=== PATIENT | female | born 1950 | race Caucasian/White ===

== ENCOUNTER → 2017-09-15 | Outpatient (CLI) | payer BC ==
[~2017-09-15] MED LIST: LSN25 PO; METO50TA17 PO; POTA8CAP6 PO
--- NOTE | 2017-09-15 19:12 | DIAGNOSTIC IMAGING REPORT ---
ULTRASOUND VENOUS DOPPLER LWR EXT BILA CLINICAL HISTORY: BILATERAL LEG SWELLING COMPARISON STUDY: No previous studies for comparison. FINDINGS: The examination was limited from a technical standpoint. The patient is paraplegic and was scanned in a wheelchair. The popliteal veins were nonvisualized due to the patient's positioning. The calf veins were difficult to visualize. No thrombus was visualized within either common femoral or superficial femoral vein. IMPRESSION: Significantly limited study from a technical standpoint. No evidence of lower extremity DVT. Electronically signed by: Michael Taylor M.D. 09/15/2017 7:10 PM Dictated Date/Time: 09/15/2017 7:09 PM
--- NOTE | 2017-09-15 19:25 | DIAGNOSTIC IMAGING REPORT ---
CHEST 2 VIEWS ROUTINE CLINICAL HISTORY: COUGH COMPARISON STUDY: 09/15/2016 FINDINGS: The study was obtained in apical lordotic fashion. The heart is normal in size. There is no failure. There is no focal pulmonary consolidation. There is increased soft tissue in the right paratracheal/azygous region, unchanged from the preceding study. This is not felt to be of clinical significance as no mass was identified in this area on a CT scan performed 09/21/2016[ . No pleural effusions are visualized. There is elevation/eventration left hemidiaphragm. IMPRESSION: No active disease in the chest. Electronically signed by: Michael Taylor M.D. 09/15/2017 7:23 PM Dictated Date/Time: 09/15/2017 7:21 PM
--- NOTE | 2017-09-19 13:24 | CODING QUERY MEDICAL NECESSITY ---
SUPPORTING DIAGNOSIS NEEDED A supporting diagnosis is required for the test/procedure performed on this patient in order for us to be reimbursed by the patient's insurance. Please provide a supporting diagnosis for the following test/procedure listed below next to the test name along with your signature. *If there is no additional diagnosis for this patient that would support the following test/procedure please document that below next to the test/procedure. Test(s)/Procedure(s) that require a supporting diagnosis: * US VENOUD DOPPLER LWR EXT BILA DIAGNOSIS: Provider Signature: Date: Thank you [facility] [place] [facility] Once completed, please kindly fax back to [phone] For questions please call [phone]
== END | disposition home or self-care (01) ==
LOC: C.ULTR 17:50
PROVIDERS: ATTEND Nurse Practitioner Family
DX: R50.9 Fever, unspecified (principal); R05 Cough

== ENCOUNTER 2021-05-15 10:35 | Inpatient (IN) ==
[2021-05-15] MEDS ORDERED: PIPERACILLIN/TAZOBACTAM 4.5 GM/120 ML BAG IV ONE (11:31)
[2021-05-15] MEDS ORDERED: PIPERACILL/TAZOBAC CONSULT ACTIVE PRN (11:31)
--- NOTE | 2021-05-15 11:54 | XRay Report ---
XR chest 1V portable HISTORY: 70 years-old Female Stroke Like Symptoms acute strokelike symptoms COMPARISON: Chest radiographs 04/13/2019 TECHNIQUE: Portable AP view of the chest FINDINGS: Cardiomediastinal and hilar silhouettes are within normal limits. Mild left hemidiaphragmatic elevati on has improved from comparison. No pneumothorax, pleural effusion, airspace consolidation or overt p ulmonary edema. Degenerative changes of the shoulders and spine. IMPRESSION: No acute process. ACT 112: Negative or not required by law. The above report was generated using voice recognition software. It may contain grammatical, syntax o r spelling errors. Electronically signed by: Saeid Chong M.D. 05/15/2021 11:52 AM
[2021-05-15 12:11] LABS: Hematocrit (blood only) 38.5 % (37-47); Hemoglobin 12.4 g/dL (12.0-16.0); Immature Granulocytes # (auto) 0.02 K/uL (0.00-0.02); Immature Granulocytes % (auto) 0.2 %; Lymphocytes # (auto) 0.66 K/uL (1.2-3.4); Lymphocytes % (auto) 6.4 %; Mean Corpuscular Hemoglobin 30.3 pg (25-34); Mean Corpuscular Hgb Conc 32.2 g/dL (32-36); Mean Corpuscular Volume 94.1 fL (80-100); Mean Platelet Volume 10.7 fL (7.4-10.4); Monocytes # (auto) 0.22 K/uL (0.11-0.59); Monocytes % (auto) 2.1 %; Neutrophils # (auto) 9.37 K/uL (1.4-6.5); Neutrophils % (auto) 91.3 %; Platelet Count 237 K/uL (130-400); RDW Coefficient of Variation 14.6 % (11.5-14.5); RDW Standard Deviation 50.1 fL (36.4-46.3); Red Blood Count 4.09 M/uL (4.2-5.4); White Blood Count 10.27 K/uL (4.8-10.8)
[2021-05-15 12:25] LABS: INR 1.2 (0.9-1.1); Partial Thromboplastin Ratio 1.1; Partial Thromboplastin Time 27.8 Seconds (21.0-31.0)
[2021-05-15 12:33] LABS: Alanine Aminotransferase 21 U/L (12-78); Albumin Level 3.3 gm/dl (3.4-5.0); Aspartate Aminotransferase 17 U/L (15-37); BUN Creatinine Ratio 37.6 (10-20); Blood Urea Nitrogen 23 mg/dl (7-18); Calcium 9.5 mg/dl (8.5-10.1); Carbon Dioxide 26 mmol/L (21-32); Chloride 108 mmol/L (98-107); Creatinine Clr Calc Pharmacy 87.5 ml/min; Est GFR (African American) 106.6 ml/min; Glucose 92 mg/dl (70-99); Magnesium 2.1 mg/dl (1.8-2.4); Potassium 3.6 mmol/L (3.5-5.1); Sodium 141 mmol/L (136-145)
[2021-05-15 12:38] LABS: Albumin Globulin Ratio 0.8 (0.9-2); Alkaline Phosphatase 90 U/L (45-117); Bilirubin,Total 1.3 mg/dl (0.2-1); Creatine Kinase MB 1.1 ng/ml (0.5-3.6); Globulin 4.3 gm/dl (2.5-4.0); Total Protein 7.6 gm/dl (6.4-8.2); Troponin I < 0.015 ng/ml (0-0.045)
[2021-05-15] MEDS ORDERED: OPTIRAY 320 125ml IV ONE (14:16)
--- NOTE | 2021-05-15 14:29 | CT Scan Report ---
CT angio head w con CLINICAL HISTORY: Stroke Like Symptoms TECHNIQUE: CT angiography of the head was performed in a dynamic helical fashion during intravenous a dministration of 120 cc of Optiray. MIP imaging was performed. A dose lowering technique was utilized adhering to the principles of ALARA. CT DOSE: 2044.78 mGy.cm COMPARISON STUDY: No previous studies for comparison. FINDINGS: There are no lesion suspicious for aneurysm. There are no major intracranial branch occlusi ons. The dural venous sinuses appear patent. Atheromatous changes are present within the cavernous ca rotids without evidence of hemodynamically significant stenosis. There is moderate hydrocephalus IMPRESSION: 1. Moderate hydrocephalus 2. No evidence of aneurysm 3. No evidence of major intracranial stenosis or major intracranial branch occlusion ACT 112: Negative or not required by law. Electronically signed by: Michael Taylor M.D. 05/15/2021 2:27 PM
--- NOTE | 2021-05-15 14:32 | CT Scan Report ---
CT angio neck with con CLINICAL HISTORY: Stroke Like Symptoms COMPARISON STUDY: No previous studies for comparison. TECHNIQUE: CT angiography was performed from the aortic arch to the skull base. MIP imaging was perfo rmed. The patient was scanned in a dynamic helical fashion during intravenous administration of 120 c c of Optiray. A dose lowering technique was utilized adhering to the principles of ALARA. CT DOSE: Technique: CT angiogram of the carotid and vertebral arteries was obtained using intravenous contrast and 3-D reconstruction. NASCET criteria was utilized. Findings: The right carotid revealed no evidence of aneurysm and no evidence of dissection. There is no evidenc e of hemodynamic significant stenosis. The left carotid revealed no evidence of hemodynamic significant stenosis. There is no evidence of an eurysm. There is no evidence of dissection. Atheromatous calcifications are present the level of both carotid bulbs as well as within the caverno us carotids without evidence of hemodynamically significant stenosis There is no evidence of hemodynamically significant vertebral stenosis. There is no evidence of verte bral dissection. IMPRESSION: No evidence of hemodynamically significant carotid or vertebral artery stenosis. No evidence of disse ction. ACT 112: Negative or not required by law. Electronically signed by: Michael Taylor M.D. 05/15/2021 2:31 PM
--- NOTE | 2021-05-15 14:33 | CT Scan Report ---
CT SCAN OF THE BRAIN WITHOUT IV CONTRAST CLINICAL HISTORY: Strokelike symptoms. COMPARISON STUDY: No priors. TECHNIQUE: Unenhanced axial CT scan of the brain is performed from the vertex to the skull base. A do se lowering technique was utilized adhering to the principles of ALARA. The examination is compromise d by motion artifact. FINDINGS: Brain parenchyma: There is loss of bay-white differentiation in the high left parietal lobe at the v ertex, best seen on axial image #26. There are age-related involutional changes noting moderate subc ortical and periventricular microangiopathic change. There is no hemorrhage or mass effect. No extra- axial fluid collection is seen. Ventricles, sulci, cisterns: There is hydrocephalus, with marked dilatation of the lateral and third ventricles. Biventricular diameter measures up to 8 cm. There is a mild prominence of the cortical quigley lci and cisterns. Intracranial vasculature: There is atherosclerotic calcification of the cavernous carotid and vertebr al arteries. Calvarium: Unremarkable. Sinuses and mastoids: The visualized paranasal sinuses are clear. The mastoid air cells are well pneu matized. Orbits: The bony orbits are grossly intact. IMPRESSION: 1. There is loss of bay-white matter differentiation identified in the high left parietal lobe at th e vertex. This could represent subacute versus chronic ischemic change. Correlate with any prior outs jayjay imaging studies to assess for chronicity. This could be further assessed with MRI if clinically w arranted. 2. There is no hemorrhage or mass effect. 3. Hydrocephalus. ACT 112: Negative or not required by law. Electronically signed by: Aaron Pandey M.D. 05/15/2021 2:32 PM
--- NOTE | 2021-05-15 14:46 | Electrocardiogram Report ---
Test Reason : Blood Pressure : / mmHG Vent. Rate : 105 BPM Atrial Rate : 105 BPM P-R Int : 126 ms QRS Dur : 082 ms QT Int : 370 ms P-R-T Axes : 058 044 072 degrees QTc Int : 489 ms Poor data quality, interpretation may be adversely affected Sinus tachycardia Otherwise normal ECG When compared with ECG of 21-SEP-2018 20:33, No significant change was found Confirmed by Theo Roberts ([id number]) on 05/15/2021 2:45:39 PM Referred By: REFERRED SELF Confirmed By:Theo Roberts
[2021-05-15] MEDS ORDERED: SODIUM CHLORIDE 0.9% 500 ML IV ONE (15:31)
[2021-05-15] MEDS ORDERED: ASPIRIN CHEW 324 MG PO STA (17:51)
--- NOTE | 2021-05-15 17:51 | History & Physical Report ---
Date of Service May 15, 2021 Assessment & Plan (1) Stroke-like symptoms: Presented with 1 week of right upper extremity weakness and some very subtle slurred speech CT noncontrast of the head with left parietal possible subacute CVA Risk factors for stroke include hypertension which is currently untreated, but lipid panel and hemoglobin A1c unknown at this time. She is not a smoker and has no known history of atrial fibrillation or flutter. CTA head neck without large vessel occlusion or stenosis -Admit to telemetry and monitor for tachyarrhythmia -Check echocardiogram with bubble study -Check MRI of the brain with and without contrast-she does have a history of craniotomy when she had meningitis 30+ years ago, plus a history of hydrocephalus and spina bifida -Neurology consultation requested -Start aspirin 81 mg once daily -Start atorvastatin 40 mg once daily and check lipid panel in the morning -Check hemoglobin A1c, TSH in the morning -Neurochecks, NIH scale daily -PT/OT/speech therapy consultations requested -She may need rehab as she is unable to currently do her transfers to wheelchair like she normally does (2) HTN (hypertension): Blood pressures are elevated here and she is not on medication for this at home Continue to follow but would likely start antihypertensive this admission if blood pressures remain persistently elevated -Consider diuretic versus lisinopril (3) Neurogenic bladder: With urinary incontinence Does not require self-catheterization Bladder scan as needed (4) Paraplegia: Chronic, secondary to spina bifida Frequent position changes, supportive care Offload pressure to prevent wounds (5) Spina bifida: Noted (6) Cellulitis: With left lower extremity erythema and open wound on the back of left calf does not think erythema is worse than usual and this may be secondary to her lymphedema, however given the open wound, will treat empirically with antibiotics Was given IV Zosyn in the ER We will continue IV ceftriaxone here Monitor blood cultures-drawn in the ER She remains afebrile and has no leukocytosis here (7) Lymphedema of both lower extremities: Chronic (8) DVT prophylaxis: Lovenox Disposition-admit to telemetry, may end up needing rehab stay Full code History of Present Illness Chief Complaint: Slurred speech, left-sided weakness Primary Care Provider: CHARANJIT Jimenez This patient is a 70-year-old female with a history of spina bifida with paraplegia, HTN, osteomyelitis of the right hip, Takotsubo cardiomyopathy, neurogenic bladder, lymphedema of the leg and C. difficile colitis, who presents to the ER with 1 week of slurred speech and right upper extremity weakness. She first noticed some numbness in the right forearm last week and then since then has not been able to do her transfers as well to her wheelchair due to weakness in the arm. She is able to raise the arm up but just feels its not quite as strong as it usually is. Her then started to notice slurred speech more so today than previously. In the ER, A CT of the head noncontrast showed loss of bay-white matter differentiation in the high left parietal lobe at the vertex that could represent subacute versus chronic ischemic change. She was also noted to have hydrocephalus but the patient reports this is chronic. CT angiogram of the head showed no evidence of major intracranial stenosis or major intracranial branch occlusion, but did again show moderate hydrocephalus. There are no previous studies for comparison. In addition to this, the patient also noted that she has an open wound to the back of the left calf that is more recent but she has not been covering it up. Her leg does appear erythematous, however her does not think it looks much worse than usual given her severe lymphedema in that leg. She has not had any fevers or chills, no alteration in mental status. She has no pain because she does not have sensation in the legs. She was given a dose of IV Zosyn in the ER for this. She will be admitted for stroke work-up and for treatment for possible left lower extremity cellulitis and wound. Allergies Allergy/AdvReac Type Severity Reaction Status Date / Time nalidixic acid Allergy Unknown Unknown Verified 05/15/21 15:46 Home Medications Medication Instructions Recorded Confirmed Type albuterol sulfate 2 puff INHALATION DIRECTED PRN 09/21/18 05/15/21 History Past Med/Surg History Medical History (Updated 05/15/21 @ 22:26 by Susi Card MD) Acute CHF (congestive heart failure) Acute [id number] myocardial infarction Hiatal hernia Hypertension Lymphedema of both lower extremities Meningitis spinal Neurogenic bladder (06/21/13) Paraplegia (06/21/13) Spina bifida (06/21/13) Takotsubo cardiomyopathy Surgical History H/O section Hx of cholecystectomy Family History Other Family history non-contributory Social History Smoking Status: Never smoker Hx Alcohol Use: No Hx Substance Use: No Preferred Language: Gabonese Communication Ability: Effective Visual Impairment: No Limitations Hearing Ability: Normal 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 No changes in bowels Physical Exam Constitutional: WD/WN, vitals as above + obese Eyes: PERRL, conjunctivae normal, anicteric sclerae EOM intact bilaterally; no anisocoria and no nystagmus ENMT: external ear and nose normal, oropharynx normal Neck: trachea midline, no thyromegaly Respiratory: normal respiratory effort, lungs clear to auscultation Cardiovascular: Rate/Rhythm: regular rate and regular rhythm Heart Sounds: no murmur Chest (Breasts): Chest: normal inspection of chest Gastrointestinal (Abdomen): normal bowel sounds, soft, nontender, no hepatosplenomegaly Musculoskeletal: Extremities: no cyanosis and no clubbing Massive lymphedema of the lower extremities left greater than right, does have toes but no discernible shape to the feet Skin: Positive erythema of left leg up to the mid thigh Open wound 3 x 2 cm in the posterior left calf without drainage Neurologic: CN's II-XI intact bilaterally (Except very slight droop to right corner of mouth), + focal motor deficit (Lower extremities flaccid,RUE w/ 4/5 strength in deltoid,otherwise 5/5 UEs) and awake; not confused Speech / Cognition: no expressive aphasia Motor/Sensory: + pronator drift (Right upper extremity); no sensory deficit (Sensation intact to light touch throughout upper extremities bilaterally) Psychiatric: A+Ox3, euthymic affect Lymphatic: + lymphedema (Severe, in lower extremities bilateral) Results & Data Results & Data ([facility]) Vital Signs (Past 12 Hours) Vital Signs Temp Pulse Resp BP Pulse Ox 05/15/21 17:30 100 H 23 141/108 H 99 05/15/21 17:00 92 H 20 136/69 97 05/15/21 16:30 93 H 20 128/79 96 05/15/21 15:30 94 H 18 150/77 H 97 05/15/21 15:00 93 H 19 145/89 H 95 05/15/21 14:30 105 H 20 123/105 H 05/15/21 13:30 93 H 21 109/65 95 05/15/21 13:00 98 H 21 115/76 96 05/15/21 12:31 98 H 18 115/67 05/15/21 12:07 108 H 18 118/76 93 05/15/21 12:00 101 H 18 05/15/21 11:30 106 H 18 97 05/15/21 11:25 109 H 20 96 05/15/21 10:41 36.8 C 119 H 18 162/79 H 94 05/15/21 10:36 96 Laboratory Results 05/15/21 05/15/21 05/15/21 Range/Units 12:26 12:25 12:25 WBC (4.8-10.8) K/uL RBC (4.2-5.4) M/uL Hgb (12.0-16.0) g/dL Hct (37-47) % MCV (80-100) fL MCH (25-34) pg MCHC (32-36) g/dL RDW Std Deviation (36.4-46.3) fL RDW Coeff of Deanna (11.5-14.5) % Plt Count (130-400) K/uL MPV (7.4-10.4) fL Immature Gran % (Auto) % Neut % (Auto) % Lymph % (Auto) % Woods % (Auto) % Eos % (Auto) % Baso % (Auto) % Neut # (Auto) (1.4-6.5) K/uL Lymph # (Auto) (1.2-3.4) K/uL Woods # (Auto) (0.11-0.59) K/uL Eos # (Auto) (0-0.5) K/uL Baso # (Auto) (0-0.2) K/uL Immature Gran # (Auto) (0.00-0.02) K/uL PT (9.0-12.0) Seconds INR (0.9-1.1) APTT (21.0-31.0) Seconds PTT Ratio Sodium (136-145) mmol/L Potassium (3.5-5.1) mmol/L Chloride (98-107) mmol/L Carbon Dioxide (21-32) mmol/L Anion Gap (3-11) BUN (7-18) mg/dl Creatinine (0.6-1.2) mg/dl Est Cr Clr Drug Dosing ml/min Est GFR ( Amer) ml/min Est GFR (Non-Af Amer) ml/min BUN/Creatinine Ratio (10-20) Glucose (70-99) mg/dl POC Glucose 92 (70-99) mg/dl Lactate (0.4-2.0) mmol/L Calcium (8.5-10.1) mg/dl Magnesium (1.8-2.4) mg/dl Total Bilirubin (0.2-1) mg/dl AST (15-37) U/L ALT (12-78) U/L Alkaline Phosphatase (45-117) U/L CK-MB (CK-2) (0.5-3.6) ng/ml Troponin I (0-0.045) ng/ml Total Protein (6.4-8.2) gm/dl Albumin (3.4-5.0) gm/dl Globulin (2.5-4.0) gm/dl Albumin/Globulin Ratio (0.9-2) COVID-19 Eval Order Covid19 at [facility] SARS-CoV-2 (PCR) NEGATIVE (Negative) 05/15/21 05/15/21 05/15/21 Range/Units 11:50 11:50 11:50 WBC (4.8-10.8) K/uL RBC (4.2-5.4) M/uL Hgb (12.0-16.0) g/dL Hct (37-47) % MCV (80-100) fL MCH (25-34) pg MCHC (32-36) g/dL RDW Std Deviation (36.4-46.3) fL RDW Coeff of Deanna (11.5-14.5) % Plt Count (130-400) K/uL MPV (7.4-10.4) fL Immature Gran % (Auto) % Neut % (Auto) % Lymph % (Auto) % Woods % (Auto) % Eos % (Auto) % Baso % (Auto) % Neut # (Auto) (1.4-6.5) K/uL Lymph # (Auto) (1.2-3.4) K/uL Woods # (Auto) (0.11-0.59) K/uL Eos # (Auto) (0-0.5) K/uL Baso # (Auto) (0-0.2) K/uL Immature Gran # (Auto) (0.00-0.02) K/uL PT 12.0 (9.0-12.0) Seconds INR 1.2 H (0.9-1.1) APTT 27.8 (21.0-31.0) Seconds PTT Ratio 1.1 Sodium 141 (136-145) mmol/L Potassium 3.6 (3.5-5.1) mmol/L Chloride 108 H (98-107) mmol/L Carbon Dioxide 26 (21-32) mmol/L Anion Gap 7.0 (3-11) BUN 23 H (7-18) mg/dl Creatinine 0.62 (0.6-1.2) mg/dl Est Cr Clr Drug Dosing 87.5 ml/min Est GFR ( Amer) 106.6 ml/min Est GFR (Non-Af Amer) 92.0 ml/min BUN/Creatinine Ratio 37.6 H (10-20) Glucose 92 (70-99) mg/dl POC Glucose (70-99) mg/dl Lactate 1.5 (0.4-2.0) mmol/L Calcium 9.5 (8.5-10.1) mg/dl Magnesium 2.1 (1.8-2.4) mg/dl Total Bilirubin 1.3 H (0.2-1) mg/dl AST 17 (15-37) U/L ALT 21 (12-78) U/L Alkaline Phosphatase 90 (45-117) U/L CK-MB (CK-2) 1.1 (0.5-3.6) ng/ml Troponin I < 0.015 (0-0.045) ng/ml Total Protein 7.6 (6.4-8.2) gm/dl Albumin 3.3 L (3.4-5.0) gm/dl Globulin 4.3 H (2.5-4.0) gm/dl Albumin/Globulin Ratio 0.8 L (0.9-2) COVID-19 Eval Order SARS-CoV-2 (PCR) (Negative) 05/15/21 Range/Units 11:50 WBC 10.27 (4.8-10.8) K/uL RBC 4.09 L (4.2-5.4) M/uL Hgb 12.4 (12.0-16.0) g/dL Hct 38.5 (37-47) % MCV 94.1 (80-100) fL MCH 30.3 (25-34) pg MCHC 32.2 (32-36) g/dL RDW Std Deviation 50.1 H (36.4-46.3) fL RDW Coeff of Deanna 14.6 H (11.5-14.5) % Plt Count 237 (130-400) K/uL MPV 10.7 H (7.4-10.4) fL Immature Gran % (Auto) 0.2 % Neut % (Auto) 91.3 % Lymph % (Auto) 6.4 % Woods % (Auto) 2.1 % Eos % (Auto) 0.0 % Baso % (Auto) 0.0 % Neut # (Auto) 9.37 H (1.4-6.5) K/uL Lymph # (Auto) 0.66 L (1.2-3.4) K/uL Woods # (Auto) 0.22 (0.11-0.59) K/uL Eos # (Auto) 0.00 (0-0.5) K/uL Baso # (Auto) 0.00 (0-0.2) K/uL Immature Gran # (Auto) 0.02 (0.00-0.02) K/uL PT (9.0-12.0) Seconds INR (0.9-1.1) APTT (21.0-31.0) Seconds PTT Ratio Sodium (136-145) mmol/L Potassium (3.5-5.1) mmol/L Chloride (98-107) mmol/L Carbon Dioxide (21-32) mmol/L Anion Gap (3-11) BUN (7-18) mg/dl Creatinine (0.6-1.2) mg/dl Est Cr Clr Drug Dosing ml/min Est GFR ( Amer) ml/min Est GFR (Non-Af Amer) ml/min BUN/Creatinine Ratio (10-20) Glucose (70-99) mg/dl POC Glucose (70-99) mg/dl Lactate (0.4-2.0) mmol/L Calcium (8.5-10.1) mg/dl Magnesium (1.8-2.4) mg/dl Total Bilirubin (0.2-1) mg/dl AST (15-37) U/L ALT (12-78) U/L Alkaline Phosphatase (45-117) U/L CK-MB (CK-2) (0.5-3.6) ng/ml Troponin I (0-0.045) ng/ml Total Protein (6.4-8.2) gm/dl Albumin (3.4-5.0) gm/dl Globulin (2.5-4.0) gm/dl Albumin/Globulin Ratio (0.9-2) COVID-19 Eval Order SARS-CoV-2 (PCR) (Negative) Diagnostic Findings Chest X-Ray 05/15/21 11:22 XR chest 1V portable HISTORY: 70 years-old Female Stroke Like Symptoms acute strokelike symptoms COMPARISON: Chest radiographs 04/13/2019 TECHNIQUE: Portable AP view of the chest FINDINGS: Cardiomediastinal and hilar silhouettes are within normal limits. Mild left hemidiaphragmatic elevation has improved from comparison. No pneumothorax, pleural effusion, airspace consolidation or overt pulmonary edema. Degenerative changes of the shoulders and spine. IMPRESSION: No acute process. ACT 112: Negative or not required by law. The above report was generated using voice recognition software. It may contain grammatical, syntax or spelling errors. Electronically signed by: Saeid Chong M.D. 05/15/2021 11:[address] 05/15/21 11:22 CT SCAN OF THE BRAIN WITHOUT IV CONTRAST CLINICAL HISTORY: Strokelike symptoms. COMPARISON STUDY: No priors. TECHNIQUE: Unenhanced axial CT scan of the brain is performed from the vertex to the skull base. A dose lowering technique was utilized adhering to the principles of ALARA. The examination is compromised by motion artifact. FINDINGS: Brain parenchyma: There is loss of bay-white differentiation in the high left parietal lobe at the vertex, best seen on axial image #26. There are age-related involutional changes noting moderate subcortical and periventricular microangiopathic change. There is no hemorrhage or mass effect. No extra-axial fluid collection is seen. Ventricles, sulci, cisterns: There is hydrocephalus, with marked dilatation of the lateral and third ventricles. Biventricular diameter measures up to 8 cm. There is a mild prominence of the cortical sulci and cisterns. Intracranial vasculature: There is atherosclerotic calcification of the cavernous carotid and vertebral arteries. Calvarium: Unremarkable. Sinuses and mastoids: The visualized paranasal sinuses are clear. The mastoid air cells are well pneumatized. Orbits: The bony orbits are grossly intact. IMPRESSION: 1. There is loss of bay-white matter differentiation identified in the high left parietal lobe at the vertex. This could represent subacute versus chronic ischemic change. Correlate with any prior outside imaging studies to assess for chronicity. This could be further assessed with MRI if clinically warranted. 2. There is no hemorrhage or mass effect. 3. Hydrocephalus. ACT 112: Negative or not required by law. Electronically signed by: Aaron Pandey M.D. 05/15/2021 2:32 PM Head CTA 05/15/21 11:22 CT angio head w con CLINICAL HISTORY: Stroke Like Symptoms TECHNIQUE: CT angiography of the head was performed in a dynamic helical fashion during intravenous administration of 120 cc of Optiray. MIP imaging was perfor med. A dose lowering technique was utilized adhering to the principles of ALARA. CT DOSE: 2044.78 mGy.cm COMPARISON STUDY: No previous studies for comparison. FINDINGS: There are no lesion suspicious for aneurysm. There are no major intracranial branch occlusions. The dural venous sinuses appear patent. Atheromatous changes are present within the cavernous carotids without evidence of hemodynamically significant stenosis. There is moderate hydrocephalus IMPRESSION: 1. Moderate hydrocephalus 2. No evidence of aneurysm 3. No evidence of major intracranial stenosis or major intracranial branch occlusion ACT 112: Negative or not required by law. Electronically signed by: Michael Taylor M.D. 05/15/2021 2:27 PM Neck CTA 05/15/21 11:22 CT angio neck with con CLINICAL HISTORY: Stroke Like Symptoms COMPARISON STUDY: No previous studies for comparison. TECHNIQUE: CT angiography was performed from the aortic arch to the skull base. MIP imaging was performed. The patient was scanned in a dynamic helical fashion during intravenous administration of 120 cc of Optiray. A dose lowering technique was utilized adhering to the principles of ALARA. CT DOSE: Technique: CT angiogram of the carotid and vertebral arteries was obtained using intravenous contrast and 3-D reconstruction. NASCET criteria was utilized. Findings: The right carotid revealed no evidence of aneurysm and no evidence of dissection. There is no evidence of hemodynamic significant stenosis. The left carotid revealed no evidence of hemodynamic significant stenosis. There is no evidence of aneurysm. There is no evidence of dissection. Atheromatous calcifications are present the level of both carotid bulbs as well as within the cavernous carotids without evidence of hemodynamically significant stenosis There is no evidence of hemodynamically significant vertebral stenosis. There is no evidence of vertebral dissection. IMPRESSION: No evidence of hemodynamically significant carotid or vertebral artery stenosis. No evidence of dissection. ACT 112: Negative or not required by law. Electronically signed by: Michael Taylor M.D. 05/15/2021 2:31 PM ECG Additional Comments: EKG on 05/15/2021 at 1202 with sinus tachycardia, rate 105, otherwise normal ECG Code Status & VTE Plan Code Status Full code VTE Prophylaxis Plan VTE Prophylaxis will be ordered: Yes PG Care Time/CCT Total # of Minutes Spent Total Time Spent with Patient: Total time spent is greater than 50% in coordination of care (as documented) at patient's floor/unit and/or counseling patient: Coding Level of Care Code 64387 Initial Inpt Care Lvl 3 Diagnoses Stroke-like symptoms R29.90 HTN (hypertension) I10 Neurogenic bladder N31.9 Paraplegia G82.20 Spina bifida Q05.9 Presence of hydrocephalus: unspecified hydrocephalus presence Spinal region: unspecified Cellulitis L03.90 Lymphedema of both lower extremities I89.0 DVT prophylaxis Z29.9 (1) Spina bifida Presence of hydrocephalus: unspecified hydrocephalus presence Spinal region: unspecified Qualified Code(s): Q05.9 - Spina bifida, unspecified
[2021-05-15] MEDS ORDERED: ALBUTEROL HFA 8 GM INHALER INH PRN (20:58)
[2021-05-15] MEDS ORDERED: cefTRIAXone SODIUM 2,000 MG in DEXTROSE 5% 50 ML IV SCH (20:58)
[2021-05-15] MEDS ORDERED: ACETAMINOPHEN 325 MG TAB PO PRN (20:58)
[2021-05-15] MEDS ORDERED: POLYETHYLENE (MIRALAX) 17 GM PACK PO PRN (20:58)
[2021-05-15] MEDS ORDERED: PHARMACIST DISCHARGE MED REC CONSULT PRN (20:58)
[2021-05-15] MEDS ORDERED: GADOBUTROL 65ML VIAL IV ONE (22:42)
--- NOTE | 2021-05-15 22:59 | Magnetic Resonance Report ---
MRI OF THE BRAIN COMBO CLINICAL HISTORY: Slurred speech. Right-sided weakness. COMPARISON STUDY: CT of the brain dated 05/15/2021. TECHNIQUE: MRI of the brain was performed utilizing various T1 and T2-weighted sequences in the axial , sagittal, and coronal planes. Contrast-enhanced sequences were acquired following the administratio n of 9.5 cc of Gadavist. The examination is degraded by motion artifact. FINDINGS: Brain parenchyma: There is an approximately 2.5 cm focus of restricted diffusion identified in the hi gh left parietal lobe consistent with an acute to subacute infarct. Gyriform enhancement is noted wit hin the infarcted parenchyma. No additional foci of restricted diffusion are identified. There is no hemorrhage or mass effect. There is mild to moderate microangiopathic change. No enhancing mass lesio n is identified on the postcontrast images. Tiny chronic lacunar infarcts are noted in the right cere bellar hemisphere. There is cerebellar tonsillar ectopia. Ventricles, sulci, and cisterns: There is moderate hydrocephalus comment with significant dilatation of the lateral and third ventricles. There is only mild prominence of the cortical sulci and cisterns .. Pituitary and sella: Unremarkable. Intracranial vasculature: Normal flow voids are maintained at the skull base. Orbits: The bony orbits are grossly intact. Orbital contents are normal in appearance. Sinuses and mastoids: Clear. Calvarium: Unremarkable. Cervical cord: Partially visualized cervical spinal cord is normal in morphology and signal intensity . IMPRESSION: 1. There is an acute to subacute infarct in the high left parietal cortex. 2. No additional foci of acute ischemia are identified. 3. There is no hemorrhage or mass effect. 4. Hydrocephalus. ACT 112: Negative or not required by law. Electronically signed by: Aaron Pandey M.D. 05/15/2021 10:58 PM
[2021-05-15] MEDS: cefTRIAXone SODIUM 2,000 MG in DEXTROSE 5% 50 ML IV SCH (23:14)
[2021-05-16 07:18] LABS: Eosinophils # (auto) 0.03 K/uL (0-0.5); Eosinophils % (auto) 0.4 %; Hematocrit (blood only) 39.9 % (37-47); Hemoglobin 13.3 g/dL (12.0-16.0); Immature Granulocytes # (auto) 0.04 K/uL (0.00-0.02); Immature Granulocytes % (auto) 0.5 %; Lymphocytes # (auto) 0.14 K/uL (1.2-3.4); Lymphocytes % (auto) 1.8 %; Mean Corpuscular Hemoglobin 30.6 pg (25-34); Mean Corpuscular Hgb Conc 33.3 g/dL (32-36); Mean Corpuscular Volume 91.9 fL (80-100); Mean Platelet Volume 10.3 fL (7.4-10.4); Monocytes # (auto) 0.12 K/uL (0.11-0.59); Monocytes % (auto) 1.5 %; Neutrophils # (auto) 7.58 K/uL (1.4-6.5); Neutrophils % (auto) 95.8 %; Platelet Count 156 K/uL (130-400); RDW Coefficient of Variation 14.6 % (11.5-14.5); RDW Standard Deviation 49.4 fL (36.4-46.3); Red Blood Count 4.34 M/uL (4.2-5.4); White Blood Count 7.91 K/uL (4.8-10.8)
[2021-05-16 07:38] LABS: BUN Creatinine Ratio 41.6 (10-20); Calcium 9.2 mg/dl (8.5-10.1); Creatinine Clr Calc Pharmacy 89.4 ml/min; Est GFR (African American) 108.4 ml/min; Est GFR (Non-African American) 93.5 ml/min; Potassium 3.7 mmol/L (3.5-5.1)
[2021-05-16 07:47] LABS: Thyroid Stimulating Hormone 2.46 uIu/ml (0.300-4.500)
[2021-05-16] MEDS: ENOXAPARIN INJ 40 MG/0.4 ML SYR SQ SCH (08:23)
[2021-05-16] MEDS: ATORVASTATIN 40 MG TAB PO SCH (08:23)
[2021-05-16] MEDS: ASPIRIN 81 MG ECTAB PO SCH (08:23)
[2021-05-16] MEDS ORDERED: NSS + 20MEQ KCL 20 MEQ/1,000 ML BAG IV SCH (08:30)
[2021-05-16 08:41] LABS: Estimated Average Glucose 108 mg/dl; Hemoglobin A1C 5.4 % (4.5-5.6)
[2021-05-16] MEDS: ADVANCED PROBIOTIC 1250 MG CAPSULE PO SCH (08:43)
[2021-05-16] MEDS: ONDANSETRON INJ 2 MG/ML 2 ML VIAL IV PRN ×3 (10:25→23:39)
--- NOTE | 2021-05-16 11:29 | Neurology Consultation ---
Date of Consultation May 16, 2021 Assessment & Plan (1) Stroke: Acute to subacute ischemic stroke within the high left parietal cortex resulting in a mild to moderate right hemiparesis/motor apraxia and mild dysarthria. Does not have a significant aphasia. Chronic hydrocephalus, spina bifida with paraplegia neurogenic bladder noted. No evidence of significant vascular lesion on CT angiography of the head and neck. Cardioembolism in consideration. Follow-up with results of echocardiogram. Treatment for cellulitis noted. Agree with aspirin 81 mg/day and atorvastatin 40 mg/day as ordered. Consider obtaining 30-day mobile cardiac outpatient telemetry monitoring to exclude atrial fibrillation. Continue management of blood pressure, appears appropriate. Orders for PT/OT/speech therapy noted. Patient and her spouse informed me that they were planning on taking an [id number] bus trip in about 2 weeks. However, given her recent stroke they would like to cancel this trip which I think is reasonable. They do have travel insurance but may require some type of documentation pertaining to her recent diagnosis of stroke and probably a letter from one of her physicians. I can see her for a follow-up appointment in neurology clinic in 3 to 4 weeks. History of Present Illness Reason for Consultation: Right-sided weakness, stroke Requesting Physician: Susi Card MD Attending Physician: Umesh Levy History of Present Illness The patient is a 70-year-old female with a history of spina bifida complicated by paraplegia, lower extremity deformity, neurogenic bladder who presented to the hospital yesterday for further evaluation and management of strokelike symptoms. She complains of slurred speech and right upper extremity weakness which has been present for about the past week. The symptoms have been fairly persistent. Has also had some associated numbness of the right arm. Patient is right-handed. She is able to still utilize the right arm but has greater difficulty controlling her movements. Difficulty grasping, raising the arm, and making transfers in her wheelchair noted over the past week. Past medical history is also notable for Takotsubo cardiomyopathy, chronic lymphedema and suspected left lower extremity cellulitis. Patient has undergone extensive imaging including CT of the head, CT angiography of the head and neck, and brain MRI. The CT of the head reveals a probable subacute infarct in the high left parietal cortex and hydrocephalus which is chronic, biventricular diameter up to [address] angiography of the head and neck are unremarkable. Brain MRI reveals an acute to subacute infarct in the high left parietal cortex. No hemorrhage. There is hydrocephalus again noted. No other obvious cerebral malformations. Cerebellum and brainstem structures appear normal. The corpus callosum is thinned in the context of hydrocephalus. I reviewed the images as well as the radiologist's interpretation of these tests and agree. It looks like patient's only outpatient medication was an albuterol inhaler. She is now receiving ceftriaxone for suspected infection, atorvastatin, and daily low-dose aspirin. Allergies Allergy/AdvReac Type Severity Reaction Status Date / Time nalidixic acid Allergy Unknown Unknown Verified 05/15/21 15:46 Home Medications Medication Instructions Recorded Confirmed Type albuterol sulfate 2 puff INHALATION DIRECTED PRN 09/21/18 05/15/21 History Patient History Medical History Acute CHF (congestive heart failure) Acute [id number] myocardial infarction Hiatal hernia Hypertension Lymphedema of both lower extremities Meningitis spinal Neurogenic bladder (06/21/13) Paraplegia (06/21/13) Spina bifida (06/21/13) Takotsubo cardiomyopathy Surgical History H/O section Hx of cholecystectomy Family History Other Family history non-contributory Social History Smoking Status: Never smoker Hx Alcohol Use: No Hx Substance Use: No Preferred Language: Mexican Communication Ability: Effective Visual Impairment: No Limitations Hearing Ability: Normal Pumper Hand Required: No Beliefs That Will Affect Care: None marital status: Current Living Situation: Spouse current occupational status: retired Other Information That Helps Us Care for You: No Feels Safe at Home: Yes Safety Concerns: Feels Safe At This Time during the past year weight has: remained stable Assistive Devices: Oxygen - Continuous Review of Systems Constitutional: no fever and no chills Eyes: no blind spots and no diplopia Ear, Nose, Mouth, Throat: no hearing loss Respiratory: no cough and no dyspnea Cardiovascular: no chest pain and no palpitations Gastrointestinal: + nausea and + vomiting Genitourinary: + urinary frequency and + urinary urgency Musculoskeletal: no myalgia Integumentary: + skin ulcer and + erythema Neurologic: as per Subjective / HPI, + localized weakness and + loss of sensation; no headache(s) and no memory loss Psychiatric: no depression and no anxiety Hematologic / Lymphatic: no easy bleeding and no easy bruising Exam (Neuro) Constitutional: well developed and well nourished; no acute distress Eyes: normal visual neri by confrontation, PERRL, normal accommodation and EOM intact bilaterally; no fundoscopic abnormality, no nystagmus and no papilledema Cardiovascular: Vessels: normal carotid upstroke; no carotid bruit Neurologic: Oriented to:: Person, Place and Time Memory: Short Term Intact and Remote Intact Attention: Span Intact and Concentration Intact Language: Naming Objects and Repeating Phrases Speech Fluency: negative Dysarthria Speech Aphasia: negative Aphasia Fund of Knowledge: Current Events, Past History and Vocabulary Cranial Nerves: Normal II (Visual neri full to confrontation, visual acuity normal), III, IV, (Pupils equal round reactive to light and accommodation, eye movements normal), V (Facial sensation intact), VII (There is no facial droop or weakness), VIII (Hearing intact), IX, X (Palate elevates to midline), XI (Shoulder shrug intact) and XII (Tongue protrudes to midline) Motor Strength: Pronator Drift Laterality: Right; negative Normal Lower Extremities (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 She is unable to move either lower limb.) and Normal Upper Extremities (Mild to moderate weakness noted for the right upper extremity with limited grasp and difficulty with motor control.) Motor Tone: Normal Lower Extremities and Normal Upper Extremities Muscle Bulk/Involuntary Movements: No Involuntary Movements Sensation: Light Touch Intact, Pain/Temperature Intact, Vibration Intact and Proprioception Intact Coordination: Finger-Nose Abnormal Laterality: Right and Heel-Rodríguez Abnormal (Unable to test [id number], unable to move either lower limb, chronic.); negative Dysdiadochokinesia Deep Tendon Reflexes: Rt Triceps: 3+, Lt Triceps: 2+, Rt Biceps: 3+, Lt Biceps: 2+, Rt Brachioradialis: 3+ and Lt Brachioradialis: 2+ Special Tests: negative Babinski Present Details: Unable to assess lower extremity reflexes due to congenital deformity. Patient is nonambulatory at baseline. Gait cannot be tested. Results & Data ([facility]) Vital Signs (Past 12 Hours) Vital Signs Temp Pulse Pulse Resp BP Pulse Ox 05/16/21 09:00 116 H 05/16/21 07:17 37.0 C 127 H 22 101/73 98 05/16/21 03:43 37.2 C 111 H 22 106/73 95 05/15/21 23:06 37.1 C 99 H 20 109/70 96 Laboratory Results WBC 7.91, hemoglobin 13.3, hematocrit 39.9, platelet count 156, sodium 141, potassium 3.7, BUN 25, creatinine 0.59, glucose 106, hemoglobin A1c 5.4, calcium 9.2, troponin less than 0.015, triglycerides 69, cholesterol 165, LDL 97, VLDL 14, HDL 54, TSH 2.[address] of the head, CT angiography of the head and neck, and brain MRI are as described in the history of present illness. I reviewed the images as well as the radiologist's interpretation of these tests. Electrocardiogram reveals sinus tachycardia, 105 bpm. An echocardiogram was reportedly completed this morning, results pending. (An echocardiogram completed in March 2019 revealed normal left ventricular systolic function, grade 1 diastolic dysfunction, mild sclerosis of the aortic valve, without stenosis, mild aortic regurgitation, and mild mitral annular calcification. Normal left and right atrial sizes noted.) Coding Level of Care Code 94721 Initial Inpt Care Lvl 3 Diagnoses Stroke I63.9
--- NOTE | 2021-05-16 13:00 | Ultrasound Report ---
US venous doppler LE BI CLINICAL HISTORY: severe lymphedema, recent CVA; r/o DVT COMPARISON STUDY: 09/15/2017 FINDINGS: Real-time and color flow Doppler imaging were performed. Flow was seen within the femoral, popliteal and calf veins with no intraluminal thrombus demonstrated. The saphenous vein is patent. Co mmon femoral waveforms demonstrate prominent pulsatility. This may indicate elevated right heart pres sures. IMPRESSION: No evidence of lower extremity DVT. ACT 112: Negative or not required by law. Electronically signed by: Michael Taylor M.D. 05/16/2021 12:59 PM
[2021-05-16] MEDS ORDERED: VANCOMYCIN CONSULT ACTIVE PRN (15:01)
--- NOTE | 2021-05-16 15:02 | Hospitalist Progress Note ---
Date of Service May 16, 2021 Assessment & Plan (1) Stroke: Left parietal lobe stroke. Cause of RUE weakness. Etiology ? cardioembolic suspected. thus far no source of embolus, however (no a.fib on tele, normal echo). normal dopplers of b/l LEs. CTA head/neck negative. Seen by neurology, Dr Davila. Appreciate his consult. asa 81mg daily recommended for secondary stroke preventoin. continue lipitor 40mg daily (LDL 97). if no other cause of stroke is found would STRONGLY recommend 30-day event monitor or even loop recorder. DVT proph- lovenox. PT, OT, speech evals requested. (2) Cellulitis: LLE. extensive. source - left calf ulcers. worsening on monotherapy with rocephin. thus, add vanco IV. demarkation lines placed. re-eval in am. cellulitis is the likely cause of her anorexia, nausea, etc today. (3) Pressure ulcer of left calf: wound care consult requested. in meantime - aquacell aq, cover with optifoams. (4) Lymphedema of both lower extremities: severe, chronic, 2nd to paraplegia status. no DVT on dopplers today. (5) HTN (hypertension): with some exceptions most BPs have been high since presentation. continue to allow permissiveness in BPs today, then start meds tomorrow if needed. (6) Neurogenic bladder: lopez (7) Paraplegia: 2nd spina bifida wheel-chair / power-chart dependent (8) Spina bifida: longstanding diagnosis as above (9) Dehydration: patient appears volume contracted 2nd to poor oral intake, LLE cellulitis, etc. start isotonic fluids. repeat BMP am. (10) DVT prophylaxis: lovenox 40mg daily records suggest past h/o DVT but I cannot find any imaging report or document substantiating this left message for pt's this evening Admission and Anticipated Discharge Date Admission Date: May 15, 2021 Subjective patient lying in bed during the visit. she had an emesis basin near her - states she has had nausea much of the day. had emesis x 1. staff report 1 stool since admission - hard as a rock. no appetite. denies fevers/chills. RUE weakness mildly improved relative to admission. at baseline has no movement or sensation of b/l LEs. tele overnight - wnl, NSR. Review of Systems Constitutional: + fatigue, + weakness and + anorexia Ear, Nose, Mouth, Throat: no dysphagia Respiratory: no cough and no dyspnea Cardiovascular: no chest pain Gastrointestinal: + nausea, + vomiting and + constipation; no abdominal pain Integumentary: + skin ulcer (left calf ) Physical Exam Constitutional: + ill appearing; no acute distress and no altered mental status ENMT: Mouth: + dry oral mucous membranes Respiratory: normal respiratory effort, lungs clear to auscultation Cardiovascular: Rate/Rhythm: regular rhythm and + tachycardic Heart Sounds: normal S1 and normal S2; no murmur Vessels: posterior tibial pulses present and dorsalis pedis pulses present; no JVD Extremities: + edema (chronic lymphedema b/l legs ) Gastrointestinal (Abdomen): Inspection/Auscultation: + abdomen distended and + hypoactive bowel sounds Percussion/Palpation: abdomen nontender, no guarding and no hepatosplenomegaly Musculoskeletal: b/l BKAs Skin: severe stasis changes b/l legs; dry skin both legs. ulceration x 2 on posterior LLE over calf; serous drainage noted. erythema encircling the calf region. erythema then tracks up the anterior and lateral left thigh to the level of the inguinal crease. Neurologic: paraplegia of legs; 4/5 strength RUE; 5/5 strength LUE. Psychiatric: Orientation: alert and oriented x 3 Results & Data Results & Data ([facility]) Vital Signs (Past 12 Hours) Vital Signs Temp Pulse Pulse Resp BP Pulse Ox 05/16/21 14:39 37.5 C 90 18 165/93 H 98 05/16/21 11:07 34.7 C L 105 H 18 161/81 H 95 05/16/21 09:00 116 H 05/16/21 07:17 37.0 C 127 H 22 101/73 98 05/16/21 03:43 37.2 C 111 H 22 106/73 95 Laboratory Results Laboratory Results - last 24 hr 05/16/21 05/16/21 05/16/21 07:02 07:02 07:02 WBC 7.91 RBC 4.34 Hgb 13.3 Hct 39.9 MCV 91.9 MCH 30.6 MCHC 33.3 RDW Std Deviation 49.4 H RDW Coeff of Deanna 14.6 H Plt Count 156 MPV 10.3 Immature Gran % (Auto) 0.5 Neut % (Auto) 95.8 Lymph % (Auto) 1.8 [place] % (Auto) 1.5 Eos % (Auto) 0.4 Baso % (Auto) 0.0 Neut # (Auto) 7.58 H Lymph # (Auto) 0.14 L [place] # (Auto) 0.12 Eos # (Auto) 0.03 Baso # (Auto) 0.00 Immature Gran # (Auto) 0.04 H Sodium 141 Potassium 3.7 Chloride 109 H Carbon Dioxide 25 Anion Gap 6.0 BUN 25 H Creatinine 0.59 L Est Cr Clr Drug Dosing 89.4 Est GFR ( Amer) 108.4 Est GFR (Non-Af Amer) 93.5 BUN/Creatinine Ratio 41.6 H Glucose 106 H Estimat Average Glucose 108 Hemoglobin A1c 5.4 Calcium 9.2 Triglycerides 69 Cholesterol 165 LDL Cholesterol, Calc 97 VLDL Cholesterol, Calc 14 HDL Cholesterol 54 Cholesterol/HDL Ratio 3 TSH 2.460 Specimen Hemolysis Hepatitis C Ab Screen 05/16/21 07:02 WBC RBC Hgb Hct MCV MCH MCHC RDW Std Deviation RDW Coeff of Deanna Plt Count MPV Immature Gran % (Auto) Neut % (Auto) Lymph % (Auto) [place] % (Auto) Eos % (Auto) Baso % (Auto) Neut # (Auto) Lymph # (Auto) [place] # (Auto) Eos # (Auto) Baso # (Auto) Immature Gran # (Auto) Sodium Potassium Chloride Carbon Dioxide Anion Gap BUN Creatinine Est Cr Clr Drug Dosing Est GFR ( Amer) Est GFR (Non-Af Amer) BUN/Creatinine Ratio Glucose Estimat Average Glucose Hemoglobin A1c Calcium Triglycerides Cholesterol LDL Cholesterol, Calc VLDL Cholesterol, Calc HDL Cholesterol Cholesterol/HDL Ratio TSH Specimen Hemolysis Hepatitis C Ab Screen Pending Diagnostic Findings Venous Doppler Study 05/16/21 11:08 US venous doppler LE BI CLINICAL HISTORY: severe lymphedema, recent CVA; r/o DVT COMPARISON STUDY: 09/15/2017 FINDINGS: Real-time and color flow Doppler imaging were performed. Flow was seen within the femoral, popliteal and calf veins with no intraluminal thrombus demonstrated. The saphenous vein is patent. Common femoral waveforms demonstrate prominent pulsatility. This may indicate elevated right heart pressures. IMPRESSION: No evidence of lower extremity DVT. ACT 112: Negative or not required by law. Electronically signed by: Michael Taylor M.D. 05/16/2021 12:59 PM KUB X-Ray 05/16/21 15:01 XR KUB/Abdomen 1 view CLINICAL HISTORY: nausea/emesis COMPARISON STUDY: 09/17/2016 FINDINGS: The bones are osteopenic. The pelvis appears somewhat dysmorphic. There are surgical clips within the right upper quadrant consistent with a prior cholecystectomy. There is a severe thoracolumbar scoliosis. There is mild gaseous prominence of large and small bowel loops. There are no transition zones indicate bowel obstruction. There is scattered colonic stool. There is increased density of the bladder likely secondary to contrast excretion. IMPRESSION: 1. Nonobstructive bowel gas pattern. ACT 112: Negative or not required by law. Electronically signed by: Michael Taylor M.D. 05/16/2021 4:00 PM PG Care Time/CCT Total # of Minutes Spent Total Time Spent with Patient: Total time spent is greater than 50% in coordination of care (as documented) at patient's floor/unit and/or counseling patient: Coding Level of Care Code 85237 Subseq Hosp Care Lvl 3 Diagnoses Stroke I63.9 Cellulitis L03.90 Site of cellulitis: unspecified site Pressure ulcer of left calf L89.899 Lymphedema of both lower extremities I89.0 HTN (hypertension) I10 Neurogenic bladder N31.9 Paraplegia G82.20 Spina bifida Q05.9 Spinal region: unspecified Presence of hydrocephalus: unspecified hydrocephalus presence Dehydration E86.0 DVT prophylaxis Z29.9 (1) Cellulitis Site of cellulitis: unspecified site Qualified Code(s): L03.90 - Cellulitis, unspecified (2) Spina bifida Spinal region: unspecified Presence of hydrocephalus: unspecified hydrocephalus presence Qualified Code(s): Q05.9 - Spina bifida, unspecified
[2021-05-16] MEDS ORDERED: VANCOMYCIN HCL 2,000 MG in SODIUM CHLORIDE 0.9% 500 ML IV STA (15:13)
--- NOTE | 2021-05-16 15:29 | XCELERA ---
[id number]
--- NOTE | 2021-05-16 16:02 | XRay Report ---
XR KUB/Abdomen 1 view CLINICAL HISTORY: nausea/emesis COMPARISON STUDY: 09/17/2016 FINDINGS: The bones are osteopenic. The pelvis appears somewhat dysmorphic. There are surgical clips within the right upper quadrant consistent with a prior cholecystectomy. There is a severe thoracolum bar scoliosis. There is mild gaseous prominence of large and small bowel loops. There are no transiti on zones indicate bowel obstruction. There is scattered colonic stool. There is increased density of the bladder likely secondary to contrast excretion. IMPRESSION: 1. Nonobstructive bowel gas pattern. ACT 112: Negative or not required by law. Electronically signed by: Michael Taylor M.D. 05/16/2021 4:00 PM
--- NOTE | 2021-05-16 16:22 | Pharmacy Report ---
Pharmacy Abx Initial Consult - Date of Service May 16, 2021 - Pharmacy Dosing Scope Date of Consult: 05/16/21 Consultation requested by: Dr. Levy Pharmacy is consulted to initiate vancomycin IV dosing therapy, order appropriate labs and adjust drug dose/frequency. - Subjective The patient is a 70 year old F admitted on 05/15/21 18:29. - Objective Height: 5 ft Weight: 89.1 kg Vital Signs (Past 12hrs): Vital Signs Temp Pulse Pulse Resp BP Pulse Ox 05/16/21 16:00 83 05/16/21 14:39 37.5 C 90 18 165/93 H 98 05/16/21 11:07 34.7 C L 105 H 18 161/81 H 95 05/16/21 09:00 116 H 05/16/21 07:17 37.0 C 127 H 22 101/73 98 Lab Results (24hrs): Laboratory Tests (24 Hours) 05/16/21 05/16/21 07:02 07:02 WBC 7.91 Neut # (Auto) 7.58 H Creatinine 0.59 L Est Cr Clr Drug Dosing 89.4 - Assessment & Plan Assessment 70 year old F with a history of spina bifida complicated by paraplegia presented yesterday for concerns of stroke. Initiated on IV ceftriaxone yesterday and vancomycin added today for LLE cellulitis and open wound. Blood cultures NGTD. Renal function at baseline, however SCr not likely an accurate estimate of renal function in this patient. Plan Vancomycin IV * Loading dose: 2000 mg (22 mg/kg) * Maintenance dose: 1250mg IV (14mg/kg) every 12 hours * Goal trough level for cellulitis: 10-15mcg/mL * Will order a trough at steady state or sooner if renal function declines. Pharmacy will continue to follow and will adjust dose/frequency as necessary. Thank you.
--- NOTE | 2021-05-16 16:57 | Emergency Department Note ---
Impression & Plan Cellulitis, Stroke-like symptoms ED Provider Note NAME: JR DIAZ AGE: 70 SEX: F : 1950 ARRIVES VIA: Walk-In INFORMANT: Patient, ED PROVIDER(S): Juan Summers MD CHIEF COMPLAINT: Rt arm numbness HPI: This 70-year-old female who has a history of spina bifida who presents to the emergency department with her . Per the patient's the patient has had slurred speech for at least a week. The patient reports that she has had on and off symptoms of numbness to the right upper extremity. She reports nothing makes this better or worse. She denies taking anything for this. In addition the patient also has a wound to the left lower extremity. ROS: See above HPI for pertinent positives & negatives. A total of 10 systems reviewed and were otherwise negative. PAST MEDICAL HISTORY: See Below PAST SURGICAL HISTORY: See Below FAMILY HISTORY: See Below SOCIAL HISTORY: See Below HOME MEDICATIONS: See Below ALLERGIES: See Below VITALS: See Below PHYSICAL EXAMINATION: VITAL SIGNS - Vital signs and nursing notes were reviewed. GENERAL - 70-year-old female appearing stated age who is in no acute distress. Communicates well with provider and answers questions appropriately. SKIN - cellulitis present LLE HEAD - NC/AT. EYES - PERRL with EOMI bilaterally. Sclera anicteric. Palpebral conjunctiva pink and moist with no injection noted. EARS - No deformities of external structures noted on gross examination bilaterally. NOSE - Midline and without cyanosis. No epistaxis or purulent drainage noted. Septum midline without deviation or septal hematoma noted. MOUTH/OROPHARYNX - Without perioral cyanosis. Buccal mucosa pink and moist and without leukoplakia. Tongue midline with equal elevation of palate bilaterally. No tonsillar hypertrophy, erythema, or exudates noted. dentition noted. NECK - Neck with FROM. Supple to palpation. lymphadenopathy noted. No nuchal rigidity. LUNGS - Chest wall symmetric without accessory muscle use, intercostals retractions, or central cyanosis. Normal vesicular breath sounds CTA B/L. No wheezes, rales, or rhonchi appreciated. CARDIAC - RRR with S1/S2. No murmur, rubs, or gallops appreciated. ABDOMEN - Abdominal contour without pulsations or visible masses. BS normoactive all four quadrants. No tenderness, palpable masses, hepatosplenomegaly, or ascites noted. EXTREMITIES - No clubbing or peripheral cyanosis. No pretibial edema present. +3/5 radial, posterior tibial, and dorsalis pedis pulses palpated throughout. Pt unable to move lower extremities, LLE 2"x4" wound with cellulitis extending from wound NEUROLOGIC - Cranial nerves II through XII grossly intact. Sensory intact to light touch throughout. Patellar reflexes +2/4. PSYCH - A&Ox3 and cooperates fully with examiner. Pt is very pleasant and interacts well with examiner. MEDICAL DECISION MAKING: Patient was seen and evaluated as above in room B9. Review was performed of nursing notes and vital signs. I did review pertinent previous visits and patient history. After obtaining a thorough history and physical examination the above work up was performed. This 70-year-old female who presents emergency department complaining of wound to the left lower extremity as well as slurred speech and numbness and tingling to the right side of her body. Patient's CAT scan of the head is concerning for CVA. Based on these findings I did discuss the case with the hospitalist service who did agree to admit the patient. The patient was started on broad- spectrum antibiotics including Zosyn. She does not have an elevation in her white blood cell count. She was given a normal saline bolus here in the emergency department. An order was placed for continuous cardiac monitoring. The monitor shows a rate of 83 with Normal Sinus rhythm. The patient was evaluated during a period of high volume and high acuity during the global COVID-19 pandemic, and that diagnosis was suspected/considered upon their initial presentation. Their evaluation, treatment and testing was consistent with current guidelines for patients who present with complaints or symptoms that may be related to COVID-19. Patient was seen while provider was wearing PPE. Triage Nursing notes reviewed. Prior medical records reviewed Vital Signs: reviewed and remarkable for no significant abnormalities Differential diagnosis: Infection, dehydration, metabolic abnormality, hypo/hyperglycemia, electrolyte disturbance, anemia, hypoxia, cardiac sources, intracerebral event, toxicologic, neurologic, as well as other pathologies. ER treatment provided: See below Diagnostics interpreted by me: ECG: Sinus tachycardia no ST elevation or depression QTC is 49 ventricular rate is 105 EKG is compared to 09/21/2018 no significant changes found Laboratory studies: As stated above and show below. Imaging studies: See below Consultation(s): Internal Medicine Past Med/Surg History Medical History Acute CHF (congestive heart failure) Acute [id number] myocardial infarction Hiatal hernia Hypertension Lymphedema of both lower extremities Meningitis spinal Neurogenic bladder (06/21/13) Paraplegia (06/21/13) Spina bifida (06/21/13) Takotsubo cardiomyopathy Surgical History H/O section Hx of cholecystectomy Family History Other Family history non-contributory Social History Smoking Status: Never smoker Hx Alcohol Use: No Hx Substance Use: No Preferred Language: Ch[place] Communication Ability: Effective Visual Impairment: No Limitations Hearing Ability: Normal Research Anthropologist Required: No Beliefs That Will Affect Care: None marital status: Current Living Situation: Spouse current occupational status: retired Other Information That Helps Us Care for You: No Feels Safe at Home: Yes Safety Concerns: Feels Safe At This Time during the past year weight has: remained stable Assistive Devices: Oxygen - Continuous Allergies Allergies Allergy/AdvReac Type Severity Reaction Status Date / Time nalidixic acid Allergy Unknown Unknown Verified 05/15/21 15:46 Home Meds Home Medications Medication Instructions Recorded Confirmed albuterol sulfate 2 puff INHALATION DIRECTED PRN 09/21/18 05/15/21 Results & Data (ED) Vital Signs Vital Signs - 24 hr 05/15/21 17:00 05/15/21 17:30 05/15/21 18:01 Pulse Rate 92 H 100 H 97 H Pulse Rate from SpO2 Sensor 93 H 100 H 98 H Respiratory Rate 20 23 20 Blood Pressure 136/69 141/108 H 157/67 H Blood Pressure Mean 91 119 97 Pulse Oximetry 97 99 96 Oxygen Delivery Method Room Air Laboratory Data Result diagrams: 05/16/21 07:02 05/16/21 07:02 Lab Results 05/15/21 05/15/21 05/15/21 Range/Units 11:50 11:50 11:50 WBC 10.27 (4.8-10.8) K/uL RBC 4.09 L (4.2-5.4) M/uL Hgb 12.4 (12.0-16.0) g/dL Hct 38.5 (37-47) % MCV 94.1 (80-100) fL MCH 30.3 (25-34) pg MCHC 32.2 (32-36) g/dL RDW Std Deviation 50.1 H (36.4-46.3) fL RDW Coeff of Deanna 14.6 H (11.5-14.5) % Plt Count 237 (130-400) K/uL MPV 10.7 H (7.4-10.4) fL Immature Gran % (Auto) 0.2 % Neut % (Auto) 91.3 % Lymph % (Auto) 6.4 % [place] % (Auto) 2.1 % Eos % (Auto) 0.0 % Baso % (Auto) 0.0 % Neut # (Auto) 9.37 H (1.4-6.5) K/uL Lymph # (Auto) 0.66 L (1.2-3.4) K/uL [place] # (Auto) 0.22 (0.11-0.59) K/uL Eos # (Auto) 0.00 (0-0.5) K/uL Baso # (Auto) 0.00 (0-0.2) K/uL Immature Gran # (Auto) 0.02 (0.00-0.02) K/uL PT 12.0 (9.0-12.0) Seconds INR 1.2 H (0.9-1.1) APTT 27.8 (21.0-31.0) Seconds PTT Ratio 1.1 Sodium 141 (136-145) mmol/L Potassium 3.6 (3.5-5.1) mmol/L Chloride 108 H (98-107) mmol/L Carbon Dioxide 26 (21-32) mmol/L Anion Gap 7.0 (3-11) BUN 23 H (7-18) mg/dl Creatinine 0.62 (0.6-1.2) mg/dl Est Cr Clr Drug Dosing 87.5 ml/min Est GFR ( Amer) 106.6 ml/min Est GFR (Non-Af Amer) 92.0 ml/min BUN/Creatinine Ratio 37.6 H (10-20) Glucose 92 (70-99) mg/dl POC Glucose (70-99) mg/dl Lactate (0.4-2.0) mmol/L Calcium 9.5 (8.5-10.1) mg/dl Magnesium 2.1 (1.8-2.4) mg/dl Total Bilirubin 1.3 H (0.2-1) mg/dl AST 17 (15-37) U/L ALT 21 (12-78) U/L Alkaline Phosphatase 90 (45-117) U/L CK-MB (CK-2) 1.1 (0.5-3.6) ng/ml Troponin I < 0.015 (0-0.045) ng/ml Total Protein 7.6 (6.4-8.2) gm/dl Albumin 3.3 L (3.4-5.0) gm/dl Globulin 4.3 H (2.5-4.0) gm/dl Albumin/Globulin Ratio 0.8 L (0.9-2) COVID-19 Eval Order SARS-CoV-2 (PCR) (Negative) 05/15/21 05/15/21 05/15/21 Range/Units 11:50 12:25 12:25 WBC (4.8-10.8) K/uL RBC (4.2-5.4) M/uL Hgb (12.0-16.0) g/dL Hct (37-47) % MCV (80-100) fL MCH (25-34) pg MCHC (32-36) g/dL RDW Std Deviation (36.4-46.3) fL RDW Coeff of Deanna (11.5-14.5) % Plt Count (130-400) K/uL MPV (7.4-10.4) fL Immature Gran % (Auto) % Neut % (Auto) % Lymph % (Auto) % [place] % (Auto) % Eos % (Auto) % Baso % (Auto) % Neut # (Auto) (1.4-6.5) K/uL Lymph # (Auto) (1.2-3.4) K/uL [place] # (Auto) (0.11-0.59) K/uL Eos # (Auto) (0-0.5) K/uL Baso # (Auto) (0-0.2) K/uL Immature Gran # (Auto) (0.00-0.02) K/uL PT (9.0-12.0) Seconds INR (0.9-1.1) APTT (21.0-31.0) Seconds PTT Ratio Sodium (136-145) mmol/L Potassium (3.5-5.1) mmol/L Chloride (98-107) mmol/L Carbon Dioxide (21-32) mmol/L Anion Gap (3-11) BUN (7-18) mg/dl Creatinine (0.6-1.2) mg/dl Est Cr Clr Drug Dosing ml/min Est GFR ( Amer) ml/min Est GFR (Non-Af Amer) ml/min BUN/Creatinine Ratio (10-20) Glucose (70-99) mg/dl POC Glucose (70-99) mg/dl Lactate 1.5 (0.4-2.0) mmol/L Calcium (8.5-10.1) mg/dl Magnesium (1.8-2.4) mg/dl Total Bilirubin (0.2-1) mg/dl AST (15-37) U/L ALT (12-78) U/L Alkaline Phosphatase (45-117) U/L CK-MB (CK-2) (0.5-3.6) ng/ml Troponin I (0-0.045) ng/ml Total Protein (6.4-8.2) gm/dl Albumin (3.4-5.0) gm/dl Globulin (2.5-4.0) gm/dl Albumin/Globulin Ratio (0.9-2) COVID-19 Eval Order Covid19 at [facility] SARS-CoV-2 (PCR) NEGATIVE (Negative) 05/15/21 Range/Units 12:26 WBC (4.8-10.8) K/uL RBC (4.2-5.4) M/uL Hgb (12.0-16.0) g/dL Hct (37-47) % MCV (80-100) fL MCH (25-34) pg MCHC (32-36) g/dL RDW Std Deviation (36.4-46.3) fL RDW Coeff of Deanna (11.5-14.5) % Plt Count (130-400) K/uL MPV (7.4-10.4) fL Immature Gran % (Auto) % Neut % (Auto) % Lymph % (Auto) % [place] % (Auto) % Eos % (Auto) % Baso % (Auto) % Neut # (Auto) (1.4-6.5) K/uL Lymph # (Auto) (1.2-3.4) K/uL [place] # (Auto) (0.11-0.59) K/uL Eos # (Auto) (0-0.5) K/uL Baso # (Auto) (0-0.2) K/uL Immature Gran # (Auto) (0.00-0.02) K/uL PT (9.0-12.0) Seconds INR (0.9-1.1) APTT (21.0-31.0) Seconds PTT Ratio Sodium (136-145) mmol/L Potassium (3.5-5.1) mmol/L Chloride (98-107) mmol/L Carbon Dioxide (21-32) mmol/L Anion Gap (3-11) BUN (7-18) mg/dl Creatinine (0.6-1.2) mg/dl Est Cr Clr Drug Dosing ml/min Est GFR ( Amer) ml/min Est GFR (Non-Af Amer) ml/min BUN/Creatinine Ratio (10-20) Glucose (70-99) mg/dl POC Glucose 92 (70-99) mg/dl Lactate (0.4-2.0) mmol/L Calcium (8.5-10.1) mg/dl Magnesium (1.8-2.4) mg/dl Total Bilirubin (0.2-1) mg/dl AST (15-37) U/L ALT (12-78) U/L Alkaline Phosphatase (45-117) U/L CK-MB (CK-2) (0.5-3.6) ng/ml Troponin I (0-0.045) ng/ml Total Protein (6.4-8.2) gm/dl Albumin (3.4-5.0) gm/dl Globulin (2.5-4.0) gm/dl Albumin/Globulin Ratio (0.9-2) COVID-19 Eval Order SARS-CoV-2 (PCR) (Negative) Administered Medications Aspirin (Aspirin 81 Mg Ectab) 81 mg PO QAM POLLY Stop: 06/15/21 08:59 Last Admin: 05/16/21 08:23 Dose: 81 mg Documented by: [id number] Atorvastatin Calcium (Atorvastatin 40 Mg Tab) 40 mg PO QAM POLLY Stop: 06/15/21 08:59 Last Admin: 05/16/21 08:23 Dose: 40 mg Documented by: [id number] Enoxaparin Sodium (Enoxaparin Inj 40 Mg/0.4 Ml Syr) 40 mg SQ QAM POLLY Stop: 06/15/21 08:59 Last Admin: 05/16/21 08:23 Dose: 40 mg Documented by: [id number] Ceftriaxone Sodium 2,000 mg/ (Dextrose) 70 mls @ 140 mls/hr IV Q24H POLLY Stop: 05/22/21 21:59 Last Infusion: 05/15/21 23:44 Dose: 0 mls/hr Documented by: [id number] Admin: 05/15/21 23:14 Dose: 140 mls/hr Documented by: [id number] Potassium Chloride/Sodium Chloride (Normal Saline W/20 Meq Kcl) 20 meq in 1,000 mls @ 100 mls/hr IV .Q10H POLLY Stop: 05/16/21 18:29 Last Admin: 05/16/21 08:43 Dose: 100 mls/hr Documented by: [id number] Vancomycin HCl 2,000 mg/ (Sodium Chloride) 540 mls @ 200 mls/hr IV ONCE STA Stop: 05/16/21 17:54 Last Admin: 05/16/21 15:27 Dose: 200 mls/hr Documented by: [id number] Lactobacillus Acidoph/Casei/Rhamnos (Advanced Probiotic 1250 Mg Capsule) 2 cap PO DAILY POLLY Stop: 06/15/21 08:59 Last Admin: 05/16/21 08:43 Dose: 2 cap Documented by: [id number] Ondansetron HCl (Ondansetron Inj 2 Mg/Ml 2 Ml Vial) 4 mg IV Q6H PRN PRN Reason: Nausea Stop: 06/14/21 20:57 Last Admin: 05/16/21 10:25 Dose: 4 mg Documented by: [id number] Discontinued Medications Aspirin (Aspirin Chew 324 Mg) 324 mg PO NOW STA Stop: 05/15/21 17:52 Last Admin: 05/15/21 18:28 Dose: 324 mg Documented by: [id number] Gadobutrol (Gadobutrol 65ml Vial) 9.5 ml IV ONCE ONE Stop: 05/15/21 22:43 Last Admin: 05/15/21 22:43 Dose: 9.5 ml Documented by: [id number] Piperacillin Sod/Tazobactam Sod (Zosyn) 4.5 gm in 120 mls @ 240 mls/hr IV NOW ONE Stop: 05/15/21 12:00 Last Infusion: 05/15/21 12:39 Dose: 0 mls/hr Documented by: [id number] Admin: 05/15/21 12:09 Dose: 240 mls/hr Documented by: [id number] Sodium Chloride (Nss) 500 mls @ 999 mls/hr IV .Q31M ONE Stop: 05/15/21 16:01 Last Infusion: 05/15/21 17:53 Dose: 0 mls/hr Documented by: [id number] Admin: 05/15/21 15:45 Dose: 999 mls/hr Documented by: [id number] Ioversol (Optiray 320 125ml) 120 ml IV ONCE ONE Stop: 05/15/21 14:17 Last Admin: 05/15/21 14:17 Dose: 120 ml Documented by: [id number] Discharge Plan Visit Data Chief Complaint: Neuro Symptoms/Deficit Stated Complaint: LIMITED USAGE OF R HAND,SPEECH SLURRED ED Provider: Juan Summers Discharge Problem: Cellulitis, Stroke-like symptoms Patient Disposition: Admitted As Inpatient Discharge Instructions Interventions: ED Discharge Assessment Last Done: 05/15/21 20:43 Discharge Problem: Cellulitis Qualifiers: Site of cellulitis: unspecified site Qualified Code(s): L03.90 - Cellulitis, unspecified
[2021-05-16] MEDS: cefTRIAXone SODIUM 2,000 MG in DEXTROSE 5% 50 ML IV SCH (21:08)
[2021-05-17] MEDS: VANCOMYCIN HCL 1,250 MG in SODIUM CHLORIDE 0.9% 250 ML IV SCH ×2 (03:46→17:15)
[2021-05-17 06:37] LABS: BUN Creatinine Ratio 54.9 (10-20); Calcium 8.9 mg/dl (8.5-10.1); Creatinine Clr Calc Pharmacy 165.7 ml/min; Est GFR (African American) 132.6 ml/min; Est GFR (Non-African American) 114.4 ml/min; Potassium 3.2 mmol/L (3.5-5.1)
[2021-05-17 07:12] LABS: Basophils # (auto) 0.01 K/uL (0-0.2); Basophils % (auto) 0.2 %; Eosinophils # (auto) 0.05 K/uL (0-0.5); Eosinophils % (auto) 0.8 %; Hematocrit (blood only) 35.8 % (37-47); Hemoglobin 11.6 g/dL (12.0-16.0); Immature Granulocytes # (auto) 0.07 K/uL (0.00-0.02); Immature Granulocytes % (auto) 1.1 %; Lymphocytes # (auto) 0.47 K/uL (1.2-3.4); Lymphocytes % (auto) 7.6 %; Mean Corpuscular Volume 92.5 fL (80-100); Mean Platelet Volume 10.5 fL (7.4-10.4); Monocytes # (auto) 0.25 K/uL (0.11-0.59); Neutrophils # (auto) 5.36 K/uL (1.4-6.5); Neutrophils % (auto) 86.3 %; Platelet Count 158 K/uL (130-400); RDW Coefficient of Variation 14.7 % (11.5-14.5); RDW Standard Deviation 49.5 fL (36.4-46.3); Red Blood Count 3.87 M/uL (4.2-5.4); White Blood Count 6.21 K/uL (4.8-10.8)
[2021-05-17 07:13] LABS: Mean Corpuscular Hgb Conc 32.4 g/dL (32-36)
[2021-05-17] MEDS: ASPIRIN 81 MG ECTAB PO SCH (08:32)
[2021-05-17] MEDS: ENOXAPARIN INJ 40 MG/0.4 ML SYR SQ SCH (08:32)
[2021-05-17] MEDS: ADVANCED PROBIOTIC 1250 MG CAPSULE PO SCH (08:32)
[2021-05-17] MEDS: ATORVASTATIN 40 MG TAB PO SCH (08:32)
[2021-05-17] MEDS ORDERED: METOCLOPRAMIDE HCL INJ 5 MG/ML 2 ML VIAL IV ONE (09:48)
[2021-05-17] MEDS: POTASSIUM CHLORIDE / WTR 10 MEQ/100 ML PLCT IV SCH ×2 (10:42→12:04)
--- NOTE | 2021-05-17 11:40 | Hospitalist Progress Note ---
Date of Service May 17, 2021 Assessment & Plan (1) Stroke: Left parietal lobe stroke. Etiology -- cardioembolic source suspected. making nice improvement in RUE weakness and right hand weakness. should make good recovery. CTA head/neck negative. echo w/o thrombus. no a.fib seen on tele. [id number] cardioembolic cause is suspected. will need 30-day event monitor post-discharge. Seen by neurology, Dr Davila. Appreciate his consult. asa 81mg daily recommended for secondary stroke prevention. continue lipitor 40mg daily (LDL 97). DVT proph- lovenox. PT, OT, speech evals requested. (2) Cellulitis: LLE. extensive. source - left calf ulcers. worsening despite combo of rocephin + vanco. proximal erythema in left groin worse today. I reviewed all culture results from prior skin infections -- coag neg staph, corynebacterium, enterobacter, etc all seen. continue vanco. change rocephin to aztreonam - latter will add better gram negative coverage including pseudomonas. if the cellulitis does not improve will obtain CT LLE to r/o deeper infection. (3) Pressure ulcer of left calf: wound care consult requested. in meantime - aquacell aq, cover with optifoams. treat secondary cellulitis. see above. (4) Lymphedema of both lower extremities: severe, chronic, 2nd to paraplegia status. no DVT on dopplers this admission. would really benefit from chronic lymphedema treatment. (5) HTN (hypertension): BPs still running high. start amlodipine 2.5mg po daily. 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 GERD? constipation? other? cont IV abx for cellulitis. add pepcid IV for possible GERD. miralax and/or senna for constipation. if symptoms persist check ua, etc. does not have a gall bladder. acute CVA should not be causing nausea. (11) Hypokalemia: replace repeat K in am (12) Chronic cough: asthma/bronchial issue? GERD? other? cxr obtained today following the visit - no infiltrates, no pulm edema. treat sx's if needed. outpatient f/u. (13) DVT prophylaxis: lovenox 40mg daily extensively updated at bedside today questions answered Admission and Anticipated Discharge Date Admission Date: May 15, 2021 Subjective patient again reports nausea this am although did tolerate some small amounts of breakfast. per nursing had large bowel movement in the middle of the night. denies abd pain. tele without dysrhythmia. patient noted to have cough during the visit - states it is chronic, can't give more details. ?tickle in throat causing cough? right hand and right arm weakness are improved. she is right-handed. in her power-chair she uses the right hand to control the joystick. at bedside. asks multiple questions about left leg infection, the stroke, etc. asks if she will need rehab. Review of Systems Constitutional: + anorexia Respiratory: + cough; no dyspnea Cardiovascular: no chest pain Gastrointestinal: no abdominal pain Physical Exam Constitutional: no acute distress and no altered mental status looks better than yesterday ENMT: external ear and nose normal, oropharynx normal Respiratory: normal respiratory effort, lungs clear to auscultation Cardiovascular: Rate/Rhythm: regular rate and regular rhythm Heart Sounds: normal S1 and normal S2; no murmur Vessels: posterior tibial pulses present and dorsalis pedis pulses present; no JVD Extremities: + edema (chronic lymphedema b/l legs - no change; LLE worse than RLE) Gastrointestinal (Abdomen): Inspection/Auscultation: + hypoactive bowel sounds; abdomen not distended Percussion/Palpation: abdomen nontender, no guarding and no hepatosplenomegaly Musculoskeletal: SEVERE lymphedema of both legs; toes are literally buried into the lymphedema (toenails barely perceptible) Skin: left calf ulceration x 2 - mild drainage noted; cellulitis of left acosta unchanged; cellulitis of left thigh extending to the inguinal crease modestly worse (pink erythema extends beyond groin demarkation line); warm to touch in both cellulitic areas. Neurologic: right handgrip near 5/5 today; left handgrip 5/5; minimal pronator drift RUE; right arm flexion 4-5/5; left arm flexion 5/5; paraplegia of b/l legs. Psychiatric: Orientation: alert and oriented x 3 Results & Data Results & Data ([facility]) Vital Signs (Past 12 Hours) Vital Signs Temp Pulse Pulse Resp BP Pulse Ox 05/17/21 08:00 81 05/17/21 07:09 36.7 C 99 H 20 147/73 H 96 05/17/21 04:05 36.9 C 88 18 153/67 H 98 05/16/21 23:57 73 05/16/21 23:44 37.0 C 79 18 161/89 H 99 Laboratory Results Laboratory Results - last 24 hr 05/17/21 05/17/21 05/17/21 05:34 05:34 05:34 WBC Cancelled RBC Cancelled Hgb Cancelled Hct Cancelled MCV Cancelled MCH Cancelled MCHC Cancelled RDW Std Deviation Cancelled RDW Coeff of Deanna Cancelled Plt Count Cancelled MPV Cancelled Immature Gran % (Auto) Cancelled Neut % (Auto) Cancelled Lymph % (Auto) Cancelled Pope % (Auto) Cancelled Eos % (Auto) Cancelled Baso % (Auto) Cancelled Neut # (Auto) Cancelled Lymph # (Auto) Cancelled Pope # (Auto) Cancelled Eos # (Auto) Cancelled Baso # (Auto) Cancelled Immature Gran # (Auto) Cancelled Absolute Nucleated RBC Cancelled Nucleated RBC % (auto) Cancelled Neutrophils % (Manual) Cancelled Band Neutrophils % Cancelled Lymphocytes % (Manual) Cancelled Prolymphocyte % Cancelled Reactive Lymphs % (Man) Cancelled Monocytes % (Manual) Cancelled Eosinophils % (Manual) Cancelled Basophils % (Manual) Cancelled Metamyelocytes % (Man) Cancelled Myelocytes % (Man) Cancelled Promyelocytes % (Man) Cancelled Blast Cells % (Manual) Cancelled Plasma Cell % (Manual) Cancelled Other Cells % Cancelled Nucleated RBC % Cancelled Neutrophils # (Manual) Cancelled Band Neutrophils # Cancelled Total Absolute Neuts Cancelled Lymphocytes # (Manual) Cancelled Prolymphocyte # Cancelled Reactive Lymphs # Cancelled Total Abs Lymphocytes Cancelled Monocytes # (Manual) Cancelled Eosinophils # (Manual) Cancelled Basophils # (Manual) Cancelled Metamyelocytes # (Man) Cancelled Myelocytes # (Manual) Cancelled Promyelocytes # (Man) Cancelled Blast Cells # (Man) Cancelled Plasma Cell # (Manual) Cancelled Other Cells # Cancelled Nucleated RBCs # (Man) Cancelled Hypersegmented Neuts Cancelled Hyposegmented Neuts Cancelled Hypogranular Neuts Cancelled Large Granular Lymphs Cancelled # Lrg Granular Lymphs Cancelled Hairy Cells Cancelled Smudge Cells Cancelled Toxic Granulation Cancelled Toxic Vacuolation Cancelled Dohle Bodies Cancelled Roseanna Rods Cancelled Platelet Estimate Cancelled Hypogranular Platelets Cancelled Clumped Platelets Cancelled Giant Platelets Cancelled Platelet Satelliting Cancelled RBC Morphology Cancelled Polychromasia Cancelled Hypochromasia Cancelled Poikilocytosis Cancelled Basophilic Stippling Cancelled Anisocytosis Cancelled Microcytosis Cancelled Macrocytosis Cancelled Spherocytes Cancelled Pappenheimer Bodies Cancelled Sickle Cells Cancelled Target Cells Cancelled Tear Drop Cells Cancelled Ovalocytes Cancelled Stomatocytes Cancelled Garcia-St. [place] Bodies Cancelled Echinocytes Cancelled Acanthocytes (Spur) Cancelled Rouleaux Cancelled RBC Agglutinates Cancelled Schistocytes Cancelled RBC Morph Comment Cancelled Sezary Cell Cancelled Sodium 143 Potassium 3.2 L Chloride 111 H Carbon Dioxide 26 Anion Gap 6.0 BUN 17 Creatinine 0.32 L Est Cr Clr Drug Dosing 165.7 Est GFR ( Amer) 132.6 Est GFR (Non-Af Amer) 114.4 BUN/Creatinine Ratio 54.9 H Glucose 82 Calcium 8.9 Magnesium 1.9 05/17/21 06:59 WBC 6.21 RBC 3.87 L Hgb 11.6 L Hct 35.8 L MCV 92.5 MCH 30.0 MCHC 32.4 RDW Std Deviation 49.5 H RDW Coeff of Deanna 14.7 H Plt Count 158 MPV 10.5 H Immature Gran % (Auto) 1.1 Neut % (Auto) 86.3 Lymph % (Auto) 7.6 Pope % (Auto) 4.0 Eos % (Auto) 0.8 Baso % (Auto) 0.2 Neut # (Auto) 5.36 Lymph # (Auto) 0.47 L Pope # (Auto) 0.25 Eos # (Auto) 0.05 Baso # (Auto) 0.01 Immature Gran # (Auto) 0.07 H Absolute Nucleated RBC Nucleated RBC % (auto) Neutrophils % (Manual) Band Neutrophils % Lymphocytes % (Manual) Prolymphocyte % Reactive Lymphs % (Man) Monocytes % (Manual) Eosinophils % (Manual) Basophils % (Manual) Metamyelocytes % (Man) Myelocytes % (Man) Promyelocytes % (Man) Blast Cells % (Manual) Plasma Cell % (Manual) Other Cells % Nucleated RBC % Neutrophils # (Manual) Band Neutrophils # Total Absolute Neuts Lymphocytes # (Manual) Prolymphocyte # Reactive Lymphs # Total Abs Lymphocytes Monocytes # (Manual) Eosinophils # (Manual) Basophils # (Manual) Metamyelocytes # (Man) Myelocytes # (Manual) Promyelocytes # (Man) Blast Cells # (Man) Plasma Cell # (Manual) Other Cells # Nucleated RBCs # (Man) Hypersegmented Neuts Hyposegmented Neuts Hypogranular Neuts Large Granular Lymphs # Lrg Granular Lymphs Hairy Cells Smudge Cells Toxic Granulation Toxic Vacuolation Dohle Bodies Roseanna Rods Platelet Estimate Hypogranular Platelets Clumped Platelets Giant Platelets Platelet Satelliting RBC Morphology Polychromasia Hypochromasia Poikilocytosis Basophilic Stippling Anisocytosis Microcytosis Macrocytosis Spherocytes Pappenheimer Bodies Sickle Cells Target Cells Tear Drop Cells Ovalocytes Stomatocytes Garcia-St. [place] Bodies Echinocytes Acanthocytes (Spur) Rouleaux RBC Agglutinates Schistocytes RBC Morph Comment Sezary Cell Sodium Potassium Chloride Carbon Dioxide Anion Gap BUN Creatinine Est Cr Clr Drug Dosing Est GFR ( Amer) Est GFR (Non-Af Amer) BUN/Creatinine Ratio Glucose Calcium Magnesium PG Care Time/CCT Total # of Minutes Spent Total Time Spent with Patient: Total time spent is greater than 50% in coordination of care (as documented) at patient's floor/unit and/or counseling patient: Coding Level of Care Code 24271 Subseq Hosp Care Lvl 3 Diagnoses Stroke I63.9 Cellulitis L03.90 Site of cellulitis: unspecified site Pressure ulcer of left calf L89.899 Lymphedema of both lower extremities I89.0 HTN (hypertension) I10 Neurogenic bladder N31.9 Paraplegia G82.20 Spina bifida Q05.9 Presence of hydrocephalus: unspecified hydrocephalus presence Spinal region: unspecified Dehydration E86.0 Nausea & vomiting R11.2 Hypokalemia E87.6 Chronic cough R05 DVT prophylaxis Z29.9 (1) Cellulitis Site of cellulitis: unspecified site Qualified Code(s): L03.90 - Cellulitis, unspecified (2) Spina bifida Presence of hydrocephalus: unspecified hydrocephalus presence Spinal region: unspecified Qualified Code(s): Q05.9 - Spina bifida, unspecified
[2021-05-17] MEDS: FAMOTIDINE 20 MG in SYRINGE 3 ML IV SCH ×2 (12:05→20:48)
[2021-05-17] MEDS: NYSTATIN POWDER 15GM BTL EXT SCH ×3 (12:05→20:48)
[2021-05-17] MEDS: AZTREONAM 2,000 MG in DEXTROSE 5% 100 ML IV SCH ×2 (13:17→19:43)
[2021-05-17] MEDS ORDERED: amLODIPine BESYLATE 5 MG TAB PO ONE (13:21)
--- NOTE | 2021-05-17 15:27 | XRay Report ---
SINGLE VIEW CHEST CLINICAL HISTORY: Cough. FINDINGS: An AP, portable, upright chest radiograph is compared to study dated 05/15/2021 and correlat ed with chest CT dated 09/21/2016. The examination is degraded by portable technique and patient rotat ion. The cardiomediastinal silhouette is unremarkable. There is chronic elevation of the left hemid iaphragm and mild bibasilar atelectasis. No airspace consolidation or large pleural effusion is ident ified. No pneumothorax is seen. The skeletal structures are osteopenic. The bony thorax is grossly in tact. Degenerative change and scoliosis is noted in the thoracic spine. Arthritic change is noted in the shoulders. IMPRESSION: No active disease in the chest. ACT 112: Negative or not required by law. Electronically signed by: Aaron Pandey M.D. 05/17/2021 3:26 PM
[2021-05-18 03:30] LABS: Basophils # (auto) 0.01 K/uL (0-0.2); Basophils % (auto) 0.3 %; Eosinophils # (auto) 0.15 K/uL (0-0.5); Eosinophils % (auto) 4.4 %; Hematocrit (blood only) 30.8 % (37-47); Hemoglobin 9.9 g/dL (12.0-16.0); Immature Granulocytes # (auto) 0.03 K/uL (0.00-0.02); Immature Granulocytes % (auto) 0.9 %; Lymphocytes # (auto) 0.45 K/uL (1.2-3.4); Lymphocytes % (auto) 13.2 %; Mean Corpuscular Hemoglobin 29.5 pg (25-34); Mean Corpuscular Hgb Conc 32.1 g/dL (32-36); Mean Corpuscular Volume 91.7 fL (80-100); Mean Platelet Volume 9.9 fL (7.4-10.4); Monocytes # (auto) 0.29 K/uL (0.11-0.59); Monocytes % (auto) 8.5 %; Neutrophils # (auto) 2.49 K/uL (1.4-6.5); Neutrophils % (auto) 72.7 %; Platelet Count 147 K/uL (130-400); RDW Coefficient of Variation 14.8 % (11.5-14.5); RDW Standard Deviation 50.2 fL (36.4-46.3); Red Blood Count 3.36 M/uL (4.2-5.4); White Blood Count 3.42 K/uL (4.8-10.8)
[2021-05-18] MEDS ORDERED: VANCOMYCIN TROUGH ONE (03:30)
[2021-05-18 03:56] LABS: BUN Creatinine Ratio 47.7 (10-20); Calcium 8.1 mg/dl (8.5-10.1); Creatinine Clr Calc Pharmacy 143.3 ml/min; Est GFR (African American) 126.4 ml/min
[2021-05-18] MEDS: AZTREONAM 2,000 MG in DEXTROSE 5% 100 ML IV SCH ×3 (05:14→21:51)
[2021-05-18] MEDS: VANCOMYCIN HCL 1,250 MG in SODIUM CHLORIDE 0.9% 250 ML IV SCH (05:14)
[2021-05-18] MEDS: ENOXAPARIN INJ 40 MG/0.4 ML SYR SQ SCH (08:47)
[2021-05-18] MEDS: ADVANCED PROBIOTIC 1250 MG CAPSULE PO SCH (08:47)
[2021-05-18] MEDS: ATORVASTATIN 40 MG TAB PO SCH (08:48)
[2021-05-18] MEDS: ASPIRIN 81 MG ECTAB PO SCH (08:48)
[2021-05-18] MEDS: FAMOTIDINE 20 MG in SYRINGE 3 ML IV SCH (08:50)
[2021-05-18] MEDS: POLYETHYLENE (MIRALAX) 17 GM PACK PO SCH (08:51)
[2021-05-18] MEDS: NYSTATIN POWDER 15GM BTL EXT SCH ×3 (08:52→22:30)
[2021-05-18] MEDS: amLODIPine BESYLATE 5 MG TAB PO SCH (09:53)
[2021-05-18] MEDS: POTASSIUM CHLORIDE CRTAB 20 MEQ TABCR PO SCH ×2 (09:53→14:09)
[2021-05-18] MEDS: VANCOMYCIN HCL 1,000 MG in SODIUM CHLORIDE 0.9% 250 ML IV SCH (15:19)
[2021-05-18] MEDS: ONDANSETRON INJ 2 MG/ML 2 ML VIAL IV PRN (18:14)
--- NOTE | 2021-05-18 19:55 | Hospitalist Progress Note ---
Date of Service May 18, 2021 Assessment & Plan (1) Stroke: Left parietal lobe stroke. Etiology -- cardioembolic source suspected. RUE weakness and right hand weakness nearly resolved. Should make good recovery - perhaps regain most if not all function. CTA head/neck negative. echo w/o thrombus. no a.fib seen on tele during this stay. [id number] cardioembolic cause is suspected. will need 30-day event monitor post-discharge. Seen by neurology, Dr Davila. Appreciate his consult. asa 81mg daily recommended for secondary stroke prevention. continue lipitor 40mg daily (LDL 97). DVT proph- lovenox. PT, OT, speech evals appreciated. should be able to return home with home PT/OT and 's help. (2) Cellulitis: LLE. extensive -- but improved today. source - left calf ulcers. worsened despite combo of rocephin + vanco. aztreonam swapped in raphael of rocephin. remains on vanco. prior skin infections -- coag neg staph, corynebacterium, enterobacter, etc all seen. with improvement on aztreonam this would argue for gram negative involvement. cont aztreonam/vanco at least 1 more day. (3) Pressure ulcer of left calf: wound care consult appreciated. aquacel ag with optifoams advised. treat secondary cellulitis. see above. (4) Lymphedema of both lower extremities: severe, chronic, 2nd to paraplegia status. no DVT on dopplers this admission. would really benefit from chronic lymphedema treatment. (5) HTN (hypertension): labile, but improved with amlodipine 2.5mg po daily. continue such. 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 GERD? constipation? other? either way it is finally resolved. (11) Hypokalemia: ongoing cont repletion repeat K in am (12) Chronic cough: asthma/bronchial issue? GERD? other? cxr's this admission w/o acute pathology and o2 sats in RA wnl. outpatient f/u with pulmonary - PFTs, etc. (13) DVT prophylaxis: lovenox 40mg daily extensively updated at bedside yesterday tried calling him today on phone # listed in chart - could not leave message and no one ever answered Admission and Anticipated Discharge Date Admission Date: May 15, 2021 Subjective tele overnight wnl no a.fib/flutter feels really good today right arm weakness nearly resolved nausea resolved eating MUCH better no emesis per staff she did very poorly w/ transferring out of the bed with PT ronnell lift advised while hospitalized Review of Systems Constitutional: no fever, no chills, no fatigue and no anorexia Ear, Nose, Mouth, Throat: no dysphagia Respiratory: + cough (chronic ); no dyspnea Cardiovascular: no chest pain Gastrointestinal: no abdominal pain, no nausea and no vomiting Physical Exam Constitutional: no acute distress and no altered mental status looks great today ENMT: external ear and nose normal, oropharynx normal Respiratory: normal respiratory effort, lungs clear to auscultation Cardiovascular: Rate/Rhythm: regular rate and regular rhythm Heart Sounds: normal S1 and normal S2; no murmur Vessels: posterior tibial pulses present and dorsalis pedis pulses present; no JVD Extremities: + edema (chronic lymphedema b/l legs - no change; LLE worse than RLE) Gastrointestinal (Abdomen): normal bowel sounds, soft, nontender, no hepatosplenomegaly Inspection/Auscultation: abdomen not distended Skin: cellulitis of left thigh and left acosta IMPROVED today; left thigh erythema is retreating from the demarkation line that is just below inguinal crease. Erythema of left thigh is now light pink. left acosta erythema also slightly less red today. ulcers x 2 on left calf unchanged from prior exams. stasis changes b/l shins - also unchanged. Neurologic: paraplegia of legs. 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 left arm all muscle groups 5/5. Psychiatric: Orientation: alert and oriented x 3 Results & Data Results & Data ([facility]) Vital Signs (Past 12 Hours) Vital Signs Temp Pulse Resp BP Pulse Ox 05/18/21 19:52 37.0 C 82 20 129/115 H 95 05/18/21 15:14 36.5 C 75 19 126/78 94 05/18/21 11:00 37.3 C 89 19 122/85 97 Laboratory Results Laboratory Results - last 24 hr 05/16/21 05/18/21 05/18/21 07:02 03:18 03:18 WBC RBC Hgb Hct MCV MCH MCHC RDW Std Deviation RDW Coeff of Deanna Plt Count MPV Immature Gran % (Auto) Neut % (Auto) Lymph % (Auto) [place] % (Auto) Eos % (Auto) Baso % (Auto) Neut # (Auto) Lymph # (Auto) [place] # (Auto) Eos # (Auto) Baso # (Auto) Immature Gran # (Auto) Sodium 142 Potassium 3.0 L Chloride 110 H Carbon Dioxide 30 Anion Gap 2.0 L BUN 17 Creatinine 0.37 L Est Cr Clr Drug Dosing 143.3 Est GFR ( Amer) 126.4 Est GFR (Non-Af Amer) 109.0 BUN/Creatinine Ratio 47.7 H Glucose 96 Calcium 8.1 L Vancomycin Trough 18.6 Hepatitis C Ab Screen Neg 05/18/21 03:19 WBC 3.42 L RBC 3.36 L Hgb 9.9 L Hct 30.8 L MCV 91.7 MCH 29.5 MCHC 32.1 RDW Std Deviation 50.2 H RDW Coeff of Deanna 14.8 H Plt Count 147 MPV 9.9 Immature Gran % (Auto) 0.9 Neut % (Auto) 72.7 Lymph % (Auto) 13.2 [place] % (Auto) 8.5 Eos % (Auto) 4.4 Baso % (Auto) 0.3 Neut # (Auto) 2.49 Lymph # (Auto) 0.45 L [place] # (Auto) 0.29 Eos # (Auto) 0.15 Baso # (Auto) 0.01 Immature Gran # (Auto) 0.03 H Sodium Potassium Chloride Carbon Dioxide Anion Gap BUN Creatinine Est Cr Clr Drug Dosing Est GFR ( Amer) Est GFR (Non-Af Amer) BUN/Creatinine Ratio Glucose Calcium Vancomycin Trough Hepatitis C Ab Screen PG Care Time/CCT Total # of Minutes Spent Total Time Spent with Patient: Total time spent is greater than 50% in coordination of care (as documented) at patient's floor/unit and/or counseling patient: Coding Level of Care Code 98483 Subseq Hosp Care Lvl 2 Diagnoses Stroke I63.9 Cellulitis L03.90 Site of cellulitis: unspecified site Pressure ulcer of left calf L89.899 Lymphedema of both lower extremities I89.0 HTN (hypertension) I10 Neurogenic bladder N31.9 Paraplegia G82.20 Spina bifida Q05.9 Presence of hydrocephalus: unspecified hydrocephalus presence Spinal region: unspecified Dehydration E86.0 Nausea & vomiting R11.2 Hypokalemia E87.6 Chronic cough R05 DVT prophylaxis Z29.9 (1) Cellulitis Site of cellulitis: unspecified site Qualified Code(s): L03.90 - Cellulitis, unspecified (2) Spina bifida Presence of hydrocephalus: unspecified hydrocephalus presence Spinal region: unspecified Qualified Code(s): Q05.9 - Spina bifida, unspecified
[2021-05-18] MEDS ORDERED: PROMETHAZINE HCL 6.25 MG in SODIUM CHLORIDE 0.9% 50 ML IV PRN (22:04)
[2021-05-19] MEDS: POTASSIUM CHLORIDE CRTAB 20 MEQ TABCR PO SCH ×2 (01:07→08:39)
[2021-05-19] MEDS: FAMOTIDINE 20 MG TAB PO SCH ×3 (01:07→20:16)
[2021-05-19] MEDS: AZTREONAM 2,000 MG in DEXTROSE 5% 100 ML IV SCH ×2 (04:30→11:27)
[2021-05-19] MEDS: VANCOMYCIN HCL 1,000 MG in SODIUM CHLORIDE 0.9% 250 ML IV SCH ×2 (05:30→16:06)
[2021-05-19 06:59] LABS: BUN Creatinine Ratio 37.4 (10-20); Calcium 8.2 mg/dl (8.5-10.1); Creatinine Clr Calc Pharmacy 123.8 ml/min; Est GFR (African American) 120.3 ml/min; Est GFR (Non-African American) 103.8 ml/min
[2021-05-19 07:28] LABS: Basophils # (auto) 0.02 K/uL (0-0.2); Basophils % (auto) 0.4 %; Eosinophils # (auto) 0.21 K/uL (0-0.5); Eosinophils % (auto) 4.4 %; Hematocrit (blood only) 34.6 % (37-47); Hemoglobin 10.9 g/dL (12.0-16.0); Immature Granulocytes # (auto) 0.06 K/uL (0.00-0.02); Immature Granulocytes % (auto) 1.3 %; Lymphocytes # (auto) 1.01 K/uL (1.2-3.4); Lymphocytes % (auto) 21.2 %; Mean Corpuscular Hemoglobin 29.6 pg (25-34); Mean Platelet Volume 10.7 fL (7.4-10.4); Monocytes # (auto) 0.42 K/uL (0.11-0.59); Monocytes % (auto) 8.8 %; Neutrophils # (auto) 3.04 K/uL (1.4-6.5); Neutrophils % (auto) 63.9 %; Platelet Count 188 K/uL (130-400); RDW Coefficient of Variation 15.2 % (11.5-14.5); RDW Standard Deviation 51.9 fL (36.4-46.3); Red Blood Count 3.68 M/uL (4.2-5.4); White Blood Count 4.76 K/uL (4.8-10.8)
[2021-05-19 07:30] LABS: Mean Corpuscular Hgb Conc 31.5 g/dL (32-36)
[2021-05-19] MEDS: ASPIRIN 81 MG ECTAB PO SCH (08:38)
[2021-05-19] MEDS: amLODIPine BESYLATE 5 MG TAB PO SCH (08:38)
[2021-05-19] MEDS: ATORVASTATIN 40 MG TAB PO SCH (08:38)
[2021-05-19] MEDS: POLYETHYLENE (MIRALAX) 17 GM PACK PO SCH (08:39)
[2021-05-19] MEDS: ADVANCED PROBIOTIC 1250 MG CAPSULE PO SCH (08:39)
[2021-05-19] MEDS: NYSTATIN POWDER 15GM BTL EXT SCH ×3 (08:40→20:16)
[2021-05-19] MEDS: ENOXAPARIN INJ 40 MG/0.4 ML SYR SQ SCH (08:40)
[2021-05-19] MEDS ORDERED: levoFLOXacin 500 MG TAB PO STA (11:29)
[2021-05-19] MEDS ORDERED: amLODIPine BESYLATE 5 MG TAB PO ONE (11:30)
[2021-05-19] MEDS ORDERED: VANCOMYCIN TROUGH ONE (15:30)
[2021-05-19] MEDS: ONDANSETRON INJ 2 MG/ML 2 ML VIAL IV PRN (16:06)
--- NOTE | 2021-05-19 20:09 | Hospitalist Progress Note ---
Date of Service May 19, 2021 Assessment & Plan (1) Stroke: Left parietal lobe stroke. Etiology -- cardioembolic source suspected. RUE weakness and right hand weakness essentially resolved. Has minor sensory symptoms of right arm. CTA head/neck negative. echo w/o thrombus. no a.fib seen on tele during this stay. [id number] cardioembolic cause is suspected. plan 30-day event monitor post-discharge. Seen by neurology, Dr Davila. asa 81mg daily recommended for secondary stroke prevention. continue lipitor 40mg daily (LDL 97). should be able to return home with home PT/OT and 's help based on most recent PT/OT evals. (2) Cellulitis: LLE. extensive -- continues to improve. source - left calf ulcers. worsened despite combo of rocephin + vanco. aztreonam swapped in raphael of rocephin. remains on vanco. prior skin infections -- coag neg staph, corynebacterium, enterobacter, etc all seen. with improvement on aztreonam this would argue for gram negative involvement. change aztreonam to PO levaquin today (to get good gram neg coverage). keep vanco until tomorrow. then doxy or bactrim for MRSA coverage at d/c. (3) Pressure ulcer of left calf: STAGE 3 wound care consult appreciated. aquacel ag with optifoams advised. treat secondary cellulitis. see above. (4) Lymphedema of both lower extremities: severe, chronic, 2nd to paraplegia status. no DVT on dopplers this admission. would really benefit from chronic lymphedema treatment. (5) HTN (hypertension): uncontrolled. increase norvasc to 5mg daily. 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 GERD? constipation? other? either way it is finally resolved. cont H2 xuan. (11) Hypokalemia: resolved d/c supplementation (12) Chronic cough: asthma/bronchial issue? GERD? other? cxr's this admission w/o acute pathology and o2 sats in RA wnl. outpatient f/u with pulmonary - PFTs, etc. (13) Apnea: notes snoring at home during this stay she has had night-time desaturation will obtain overnight oximetry study tonadán (14) DVT prophylaxis: lovenox 40mg daily extensively updated at bedside today hopefully home tomorrow with home PT/OT Admission and Anticipated Discharge Date Admission Date: May 15, 2021 Subjective patient states she had minimal amount of nausea overnight none this am ate breakfast w/o difficulty feeling good overall denies new complaints right arm weakness nearly resolved however, she says the arm "feels funny" (sensation) denies any abd pain no vomiting at bedside; asks about therapy and if she can return home Review of Systems Constitutional: no fever, no chills, no fatigue and no anorexia Ear, Nose, Mouth, Throat: no dysphagia Respiratory: + cough; no dyspnea Cardiovascular: no chest pain Gastrointestinal: + nausea; no abdominal pain and no vomiting Physical Exam Constitutional: no acute distress and no altered mental status ENMT: external ear and nose normal, oropharynx normal Respiratory: normal respiratory effort, lungs clear to auscultation Cardiovascular: Rate/Rhythm: regular rate and regular rhythm Heart Sounds: normal S1 and normal S2; no murmur Vessels: posterior tibial pulses present and dorsalis pedis pulses present; no JVD Extremities: + edema (chronic lymphedema b/l legs - no change; LLE worse than RLE) Gastrointestinal (Abdomen): normal bowel sounds, soft, nontender, no hepatosp lenomegaly Inspection/Auscultation: abdomen not distended Skin: cellulitis, left leg - erythema on thigh continues to recede from p reviously placed demarkation lines in inguinal region; erythema is now faint purple/pink; erythema over left calf/acosta also fading. L calf ulcers x 2 clean with serous drainage only. severely dry skin on both legs especially from knees down. stasis changes - severe. Neurologic: right handgrip and right arm flexion/extension ~5/5 today; left arm strength 5/5. paraplegia of legs. Psychiatric: Orientation: alert and oriented x 3 Results & Data Results & Data ([facility]) Vital Signs (Past 12 Hours) Vital Signs Temp Pulse Pulse Resp BP BP Pulse Ox 05/19/21 19:18 37.2 C 88 18 115/72 96 05/19/21 15:18 37.0 C 88 20 176/98 H 97 05/19/21 14:55 80 05/19/21 11:25 36.5 C 71 18 160/83 H 95 05/19/21 08:35 36.9 C 79 16 182/85 H 95 Laboratory Results Laboratory Results - last 24 hr 05/19/21 05/19/21 05/19/21 00:00 06:11 06:11 WBC Cancelled RBC Cancelled Hgb Cancelled Hct Cancelled MCV Cancelled MCH Cancelled MCHC Cancelled RDW Std Deviation Cancelled RDW Coeff of Deanna Cancelled Plt Count Cancelled MPV Cancelled Immature Gran % (Auto) Cancelled Neut % (Auto) Cancelled Lymph % (Auto) Cancelled Anderson % (Auto) Cancelled Eos % (Auto) Cancelled Baso % (Auto) Cancelled Neut # (Auto) Cancelled Lymph # (Auto) Cancelled Anderson # (Auto) Cancelled Eos # (Auto) Cancelled Baso # (Auto) Cancelled Immature Gran # (Auto) Cancelled Absolute Nucleated RBC Cancelled Nucleated RBC % (auto) Cancelled Neutrophils % (Manual) Cancelled Band Neutrophils % Cancelled Lymphocytes % (Manual) Cancelled Prolymphocyte % Cancelled Reactive Lymphs % (Man) Cancelled Monocytes % (Manual) Cancelled Eosinophils % (Manual) Cancelled Basophils % (Manual) Cancelled Metamyelocytes % (Man) Cancelled Myelocytes % (Man) Cancelled Promyelocytes % (Man) Cancelled Blast Cells % (Manual) Cancelled Plasma Cell % (Manual) Cancelled Other Cells % Cancelled Nucleated RBC % Cancelled Neutrophils # (Manual) Cancelled Band Neutrophils # Cancelled Total Absolute Neuts Cancelled Lymphocytes # (Manual) Cancelled Prolymphocyte # Cancelled Reactive Lymphs # Cancelled Total Abs Lymphocytes Cancelled Monocytes # (Manual) Cancelled Eosinophils # (Manual) Cancelled Basophils # (Manual) Cancelled Metamyelocytes # (Man) Cancelled Myelocytes # (Manual) Cancelled Promyelocytes # (Man) Cancelled Blast Cells # (Man) Cancelled Plasma Cell # (Manual) Cancelled Other Cells # Cancelled Nucleated RBCs # (Man) Cancelled Hypersegmented Neuts Cancelled Hyposegmented Neuts Cancelled Hypogranular Neuts Cancelled Large Granular Lymphs Cancelled # Lrg Granular Lymphs Cancelled Hairy Cells Cancelled Smudge Cells Cancelled Toxic Granulation Cancelled Toxic Vacuolation Cancelled Dohle Bodies Cancelled Roseanna Rods Cancelled Platelet Estimate Cancelled Hypogranular Platelets Cancelled Clumped Platelets Cancelled Giant Platelets Cancelled Platelet Satelliting Cancelled RBC Morphology Cancelled Polychromasia Cancelled Hypochromasia Cancelled Poikilocytosis Cancelled Basophilic Stippling Cancelled Anisocytosis Cancelled Microcytosis Cancelled Macrocytosis Cancelled Spherocytes Cancelled Pappenheimer Bodies Cancelled Sickle Cells Cancelled Target Cells Cancelled Tear Drop Cells Cancelled Ovalocytes Cancelled Stomatocytes Cancelled Garcia-Donovan Bodies Cancelled Echinocytes Cancelled Acanthocytes (Spur) Cancelled Rouleaux Cancelled RBC Agglutinates Cancelled Schistocytes Cancelled RBC Morph Comment Cancelled Sezary Cell Cancelled Sodium 141 Potassium 4.0 D Chloride 112 H Carbon Dioxide 28 Anion Gap 2.0 L BUN 16 Creatinine 0.43 L Est Cr Clr Drug Dosing 123.8 Est GFR ( Amer) 120.3 Est GFR (Non-Af Amer) 103.8 BUN/Creatinine Ratio 37.4 H Glucose 96 POC Glucose 118 H Calcium 8.2 L Vancomycin Trough 05/19/21 05/19/21 05/19/21 06:49 07:18 15:24 WBC 4.76 L RBC 3.68 L Hgb 10.9 L Hct 34.6 L MCV 94.0 MCH 29.6 MCHC 31.5 L RDW Std Deviation 51.9 H RDW Coeff of Deanna 15.2 H Plt Count 188 MPV 10.7 H Immature Gran % (Auto) 1.3 Neut % (Auto) 63.9 Lymph % (Auto) 21.2 Anderson % (Auto) 8.8 Eos % (Auto) 4.4 Baso % (Auto) 0.4 Neut # (Auto) 3.04 Lymph # (Auto) 1.01 L Anderson # (Auto) 0.42 Eos # (Auto) 0.21 Baso # (Auto) 0.02 Immature Gran # (Auto) 0.06 H Absolute Nucleated RBC Nucleated RBC % (auto) Neutrophils % (Manual) Band Neutrophils % Lymphocytes % (Manual) Prolymphocyte % Reactive Lymphs % (Man) Monocytes % (Manual) Eosinophils % (Manual) Basophils % (Manual) Metamyelocytes % (Man) Myelocytes % (Man) Promyelocytes % (Man) Blast Cells % (Manual) Plasma Cell % (Manual) Other Cells % Nucleated RBC % Neutrophils # (Manual) Band Neutrophils # Total Absolute Neuts Lymphocytes # (Manual) Prolymphocyte # Reactive Lymphs # Total Abs Lymphocytes Monocytes # (Manual) Eosinophils # (Manual) Basophils # (Manual) Metamyelocytes # (Man) Myelocytes # (Manual) Promyelocytes # (Man) Blast Cells # (Man) Plasma Cell # (Manual) Other Cells # Nucleated RBCs # (Man) Hypersegmented Neuts Hyposegmented Neuts Hypogranular Neuts Large Granular Lymphs # Lrg Granular Lymphs Hairy Cells Smudge Cells Toxic Granulation Toxic Vacuolation Dohle Bodies Roseanna Rods Platelet Estimate Hypogranular Platelets Clumped Platelets Giant Platelets Platelet Satelliting RBC Morphology Polychromasia Hypochromasia Poikilocytosis Basophilic Stippling Anisocytosis Microcytosis Macrocytosis Spherocytes Pappenheimer Bodies Sickle Cells Target Cells Tear Drop Cells Ovalocytes Stomatocytes Garcia-Donovan Bodies Echinocytes Acanthocytes (Spur) Rouleaux RBC Agglutinates Schistocytes RBC Morph Comment Sezary Cell Sodium Potassium Chloride Carbon Dioxide Anion Gap BUN Creatinine Est Cr Clr Drug Dosing Est GFR ( Amer) Est GFR (Non-Af Amer) BUN/Creatinine Ratio Glucose POC Glucose 82 Calcium Vancomycin Trough 20.7 PG Care Time/CCT Total # of Minutes Spent Total Time Spent with Patient: Total time spent is greater than 50% in coordination of care (as documented) at patient's floor/unit and/or counseling patient: Coding Level of Care Code 44272 Subseq Hosp Care Lvl 3 Diagnoses Stroke I63.9 Cellulitis L03.90 Site of cellulitis: unspecified site Pressure ulcer of left calf L89.893 Pressure injury stage: stage 3 Lymphedema of both lower extremities I89.0 HTN (hypertension) I10 Neurogenic bladder N31.9 Paraplegia G82.20 Spina bifida Q05.9 Presence of hydrocephalus: unspecified hydrocephalus presence Spinal region: unspecified Dehydration E86.0 Nausea & vomiting R11.2 Hypokalemia E87.6 Chronic cough R05 Apnea R06.81 DVT prophylaxis Z29.9 (1) Pressure ulcer of left calf Pressure injury stage: stage 3 Qualified Code(s): L89.893 - Pressure ulcer of other site, stage 3 (2) Cellulitis Site of cellulitis: unspecified site Qualified Code(s): L03.90 - Cellulitis, unspecified (3) Spina bifida Presence of hydrocephalus: unspecified hydrocephalus presence Spinal region: unspecified Qualified Code(s): Q05.9 - Spina bifida, unspecified
[2021-05-20] MEDS ORDERED: VANCOMYCIN HCL 750 MG in SODIUM CHLORIDE 0.9% 250 ML IV SCH (04:00)
[2021-05-20 06:27] LABS: BUN Creatinine Ratio 73.7 (10-20); Blood Urea Nitrogen 14 mg/dl (7-18); Calcium 8.1 mg/dl (8.5-10.1); Carbon Dioxide 28 mmol/L (21-32); Chloride 109 mmol/L (98-107); Creatinine Clr Calc Pharmacy 275.4 ml/min; Est GFR (African American) > 150.0 ml/min; Est GFR (Non-African American) 135.8 ml/min; Glucose 81 mg/dl (70-99); Potassium 4.3 mmol/L (3.5-5.1); Sodium 139 mmol/L (136-145)
[2021-05-20] MEDS: POLYETHYLENE (MIRALAX) 17 GM PACK PO SCH (08:17)
[2021-05-20] MEDS: FAMOTIDINE 20 MG TAB PO SCH ×2 (08:20→21:10)
[2021-05-20] MEDS: amLODIPine BESYLATE 5 MG TAB PO SCH (08:20)
[2021-05-20] MEDS: ADVANCED PROBIOTIC 1250 MG CAPSULE PO SCH (08:20)
[2021-05-20] MEDS: ASPIRIN 81 MG ECTAB PO SCH (08:21)
[2021-05-20] MEDS: ENOXAPARIN INJ 40 MG/0.4 ML SYR SQ SCH (08:21)
[2021-05-20] MEDS: ATORVASTATIN 40 MG TAB PO SCH (08:21)
[2021-05-20] MEDS: NYSTATIN POWDER 15GM BTL EXT SCH ×3 (08:22→21:11)
[2021-05-20] MEDS: levoFLOXacin 500 MG TAB PO SCH (11:16)
[2021-05-20] MEDS: ONDANSETRON INJ 2 MG/ML 2 ML VIAL IV PRN (11:50)
[2021-05-20] MEDS ORDERED: SODIUM CHLORIDE 0.65% NA SOLN 45 ML (OCEAN) PRN (12:09)
[2021-05-20] MEDS ORDERED: amLODIPine BESYLATE 5 MG TAB PO ONE (12:11)
--- NOTE | 2021-05-20 12:15 | Hospitalist Progress Note ---
Date of Service May 20, 2021 Assessment & Plan (1) Nausea & vomiting: this has been an ongoing issue the entire stay, some days worse than others, without specific etiology found. I suspect severe GERD as culprit but can't confirm such. she is on pepcid 20mg BID. will add carafate today 1gm qid. sent her for CT abd/pelvis - nothing acute on that study. CTA chest - also negative. consider cortisol. consider u/a to r/o UTI but doubt - has been on broad-spectrum IV abx since admission. (2) Stroke: Left parietal lobe stroke. Etiology -- cardioembolic source suspected. RUE weakness and right hand weakness essentially resolved. Has minor sensory symptoms of right arm. CTA head/neck negative. echo w/o thrombus. no a.fib seen on tele during this stay. [id number] cardioembolic cause is suspected. plan 30-day event monitor post-discharge. asa 81mg daily recommended by neuro for secondary stroke prevention -- unless a.fib is seen on home monitoring and at that time would then switch to anticoagulation. continue lipitor 40mg daily (LDL 97). should be able to return home with home PT/OT and 's help based on most recent PT/OT evals. (3) Cellulitis: LLE. extensive -- continues to improve. source - left calf ulcers. prior skin infections -- coag neg staph, corynebacterium, enterobacter, etc all seen. previously on aztreonam + vanco. with improvement on aztreonam this would argue for gram negative involvement. changed aztreonam to PO levaquin - day #2 of latter today. for MRSA coverage - doxy or bactrim. plan at least 7 days of PO abx for this. (4) Pressure ulcer of left calf: STAGE 3 wound care consult appreciated. aquacel ag with optifoams advised. treat secondary cellulitis. see above. (5) Lymphedema of both lower extremities: severe, chronic, 2nd to paraplegia status. no DVT on dopplers this admission. would really benefit from chronic lymphedema treatment. (6) HTN (hypertension): uncontrolled and labile. increase norvasc to 7.5mg daily. 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 GERD? other? cxr's this admission w/o acute pathology and o2 sats in RA wnl. CTA chest today also negative outpatient f/u with pulmonary - PFTs, etc. suspect GERD causing the cough, however, and I am actively treating that (13) Apnea: notes snoring at home during this stay she has had night-time desaturation overnight oximetry very abnormal needs night-time O2 2 L will set up for after d/c ultimately needs formal sleep study and NIPPV (14) DVT prophylaxis: lovenox 40mg daily extensively updated at bedside once again today hopefully home tomorrow with home PT/OT Admission and Anticipated Discharge Date Admission Date: May 15, 2021 Subjective patient ate breakfast this am following such had nausea had emesis - clear, saliva, mucous-appearing had large stool last 24 hours per staff no abd pain continues w/ frequent throat clearing and "tickle" in throat w/ cough no dyspnea right arm weakness much improved Review of Systems Constitutional: no fever and no chills Respiratory: + cough; no dyspnea and no dyspnea on exertion Cardiovascular: no chest pain Gastrointestinal: + nausea and + vomiting; no abdominal pain, no belching and no bloating Musculoskeletal: no joint pain Physical Exam Constitutional: no acute distress and no altered mental status ENMT: external ear and nose normal, oropharynx normal Respiratory: normal respiratory effort, lungs clear to auscultation Auscultation: + wheezes (scant, hint of - scattered ) Cardiovascular: Rate/Rhythm: regular rate and regular rhythm Heart Sounds: normal S1 and normal S2; no murmur Vessels: posterior tibial pulses present and dorsalis pedis pulses present; no JVD Extremities: + edema (chronic lymphedema b/l legs - no change; LLE worse than RLE) Gastrointestinal (Abdomen): normal bowel sounds, soft, nontender, no hepatosplenomegaly Inspection/Auscultation: abdomen not distended Percussion/Palpation: abdomen nontender, no guarding and no hepatosplenomegaly Skin: L thigh erythema from cellulitis continues to improve; left calf/acosta erythema also continues to improved; ulcers posterior L calf NOT examined today; background of severe venous stasis b/l legs covering most of shins Psychiatric: Orientation: alert and oriented x 3 Results & Data Results & Data ([facility]) Vital Signs (Past 12 Hours) Vital Signs Temp Pulse Pulse Pulse Pulse Resp BP 05/20/21 11:02 37.0 C 80 20 188/96 H 05/20/21 09:48 73 05/20/21 09:27 165/89 H 05/20/21 08:00 37.0 C 80 18 180/98 H 05/20/21 05:31 79 05/20/21 04:00 36.8 C 70 18 135/76 05/20/21 03:18 86 05/20/21 00:45 75 Pulse Ox Pulse Ox 05/20/21 11:02 95 05/20/21 09:48 05/20/21 09:27 05/20/21 08:00 93 05/20/21 05:31 96 05/20/21 04:00 91 05/20/21 03:18 86 L 05/20/21 00:45 93 Laboratory Results Laboratory Results - last 24 hr 05/19/21 05/20/21 05/20/21 15:24 05:35 11:04 Sodium 139 Potassium 4.3 Chloride 109 H Carbon Dioxide 28 Anion Gap 2.0 L BUN 14 Creatinine 0.19 L Est Cr Clr Drug Dosing 275.4 Est GFR ( Amer) > 150.0 Est GFR (Non-Af Amer) 135.8 BUN/Creatinine Ratio 73.7 H Glucose 81 POC Glucose 108 H Calcium 8.1 L Vancomycin Trough 20.7 PG Care Time/CCT Total # of Minutes Spent Total Time Spent with Patient: Total time spent is greater than 50% in coordination of care (as documented) at patient's floor/unit and/or counseling patient: Coding Level of Care Code None Diagnoses Nausea & vomiting R11.2 Stroke I63.9 Cellulitis L03.90 Site of cellulitis: unspecified site Pressure ulcer of left calf L89.893 Pressure injury stage: stage 3 Lymphedema of both lower extremities I89.0 HTN (hypertension) I10 Neurogenic bladder N31.9 Paraplegia G82.20 Spina bifida Q05.9 Presence of hydrocephalus: unspecified hydrocephalus presence Spinal region: unspecified Dehydration E86.0 Hypokalemia E87.6 Chronic cough R05 Apnea R06.81 DVT prophylaxis Z29.9 Comment see separate "PG e/m" entry dated 05/20/21 (1) Pressure ulcer of left calf Pressure injury stage: stage 3 Qualified Code(s): L89.893 - Pressure ulcer of other site, stage 3 (2) Cellulitis Site of cellulitis: unspecified site Qualified Code(s): L03.90 - Cellulitis, unspecified (3) Spina bifida Presence of hydrocephalus: unspecified hydrocephalus presence Spinal region: unspecified Qualified Code(s): Q05.9 - Spina bifida, unspecified
[2021-05-20] MEDS: MUPIROCIN 2% OINT 22 GM TUBE EXT SCH ×2 (12:40→21:10)
[2021-05-20] MEDS: SUCRALFATE 1 GM/10 ML UDC PO SCH ×3 (12:40→21:10)
[2021-05-20] MEDS ORDERED: OPTIRAY 320 125ml IV ONE (13:19)
--- NOTE | 2021-05-20 13:34 | CT Scan Report ---
CT ANGIOGRAPHY OF THE CHEST, PULMONARY EMBOLUS PROTOCOL CLINICAL HISTORY: Cough; evaluate for aspiration. Evaluate for pulmonary embolus. COMPARISON STUDY: Chest CT September 21, 2016. Chest radiograph May 17, 2021. TECHNIQUE: Following IV administration of 120 mL of Optiray, helical axial images of the chest were o btained utilizing the pulmonary embolus protocol. Maximal intensity projections and sagittal and cor onal reformats were viewed on an independent 3D workstation. IV contrast was administered without co mplication. Automated exposure control was utilized for the study. A dose lowering technique was ut ilized adhering to the principles of ALARA. CT DOSE: 2189.71 mGy.cm FINDINGS: No central pulmonary emboli are identified. Evaluation of the remainder of the pulmonary a rteries is suboptimal due to suboptimal opacification and respiratory motion. There is mild cardiomeg lina. No thoracic aortic dissection is present. There is no pericardial effusion. No enlarged thoracic lymph nodes are present. No pneumothorax or pleural effusion is present. No consolidation to suggest pneumonia. Central airways are patent. No acute rib or thoracic spine fracture is noted. Scoliosis o f the thoracolumbar spine is partially imaged. Abdomen and pelvis will be reported separately. IMPRESSION: 1. No central pulmonary emboli. Remainder of pulmonary arteries suboptimally assessed due to respirat ory motion and suboptimal opacification. 2. No consolidation to suggest pneumonia. 3. Mild cardiomegaly. ACT 112: Negative or not required by law. Electronically signed by: Kwabena Montalvo M.D. 05/20/2021 1:33 PM
--- NOTE | 2021-05-20 13:39 | CT Scan Report ---
ABDOMEN AND PELVIS CT WITH IV CONTRAST CT DOSE: HISTORY: persistent nausea and vomiting, eval ileus, eval esophagitis, etc TECHNIQUE: Multiaxial CT images of the abdomen and pelvis were performed following the use of intrave nous contrast. A dose lowering technique was utilized adhering to the principles of ALARA. COMPARISON STUDY: Abdomen and pelvis CT 09/21/2018. FINDINGS: The lung bases are clear. No pneumoperitoneum. No pneumatosis. No change in the hypoplastic pelvic bones with chronic deformity of the bilateral hips. Soft tissue thickening surrounding the bi lateral hips is also unchanged. Posterior fusion defects within the lumbar spine with an associated 6 .4 cm myelomeningocele. This is also unchanged. No acute fractures within the visualized osseous stru ctures. Interval improvement in the right ischial decubitus ulcer compared to the prior study. Improv ement in the destructive changes within the right posterior acetabulum/ischial tuberosity consistent with a healed osteomyelitis. Marked pelvic floor collapse with moderate perianal subcutaneous edema. Lobular bladder containing multiple small diverticula. The uterus is unremarkable. Moderate well-form ed stool seen throughout the majority of the colon. No bowel wall thickening or obstruction. Tiny fat -containing umbilical hernia containing fluid and a knuckle small bowel. Mild body wall edema is note d. Stable 1.3 cm cyst within the left hepatic lobe. Cholecystectomy. The main portal vein is patent. The pancreas, adrenal glands, and spleen are unremarkable. Multiple bilateral renal hypodense lesions remain stable. These likely represent cysts. No right-sided hydronephrosis. There is mild fullness w ithin the left renal collecting system and a mildly dilated ureter to the level of the left ureterove sical junction. No obstructing stones identified. This could be transient or due to the mass effect f rom the pelvic floor collapse. An occult obstructing lesion or stricture at the ureterovesical juncti on are considered less likely but not entirely excluded. No retroperitoneal lymphadenopathy. Normal c aliber abdominal aorta. IMPRESSION: 1. No bowel wall thickening or obstruction. 2. There is mild fullness within the left renal collecting system and a mildly dilated ureter to the level of the left ureterovesical junction. No obstructing stones identified. This could be transient or due to the mass effect from the pelvic floor collapse. An occult obstructing lesion or stricture a t the ureterovesical junction are considered less likely but not entirely excluded. Consider follow-u p nonemergent urology consultation for further evaluation. 3. 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 The destructive change within the right ischial tuberosity has improved/healed in the interval. 4. Moderate edema within the perianal soft tissues. This is also likely chronic. 5. Marked pelvic floor collapse. 6. Additional findings as described above. ACT 112: Negative or not required by law. Electronically signed by: Joseph Sorensen M.D. 05/20/2021 1:38 PM
[2021-05-20] MEDS ORDERED: DOXYCYCLINE HYCLATE 100 MG CAP PO SCH (21:00)
[2021-05-20] MEDS: DOXYCYCLINE HYCLATE 100 MG CAP PO SCH (21:10)
--- NOTE | 2021-05-20 23:31 | Billing Data ---
Date of Service May 20, 2021 Coding Level of Care Code 23015 Subseq Hosp Care Lvl 3
[2021-05-21] MEDS: ATORVASTATIN 40 MG TAB PO SCH (08:57)
[2021-05-21] MEDS: amLODIPine BESYLATE 5 MG TAB PO SCH (08:57)
[2021-05-21] MEDS: ASPIRIN 81 MG ECTAB PO SCH (08:57)
[2021-05-21] MEDS: ENOXAPARIN INJ 40 MG/0.4 ML SYR SQ SCH (08:57)
[2021-05-21] MEDS: DOXYCYCLINE HYCLATE 100 MG CAP PO SCH (08:57)
[2021-05-21] MEDS: FAMOTIDINE 20 MG TAB PO SCH (08:58)
[2021-05-21] MEDS: ADVANCED PROBIOTIC 1250 MG CAPSULE PO SCH (08:58)
[2021-05-21] MEDS: NYSTATIN POWDER 15GM BTL EXT SCH ×2 (08:59→15:10)
[2021-05-21] MEDS: MUPIROCIN 2% OINT 22 GM TUBE EXT SCH (08:59)
[2021-05-21] MEDS: POLYETHYLENE (MIRALAX) 17 GM PACK PO SCH (08:59)
[2021-05-21] MEDS: SUCRALFATE 1 GM/10 ML UDC PO SCH ×2 (08:59→12:12)
[2021-05-21 09:30] LABS: Hematocrit (blood only) 34.8 % (37-47); Hemoglobin 11.3 g/dL (12.0-16.0); Mean Corpuscular Hemoglobin 29.7 pg (25-34); Mean Corpuscular Hgb Conc 32.5 g/dL (32-36); Mean Corpuscular Volume 91.6 fL (80-100); Mean Platelet Volume 10.2 fL (7.4-10.4); Platelet Count 205 K/uL (130-400); RDW Standard Deviation 50.5 fL (36.4-46.3); White Blood Count 6.55 K/uL (4.8-10.8)
[2021-05-21 10:04] LABS: BUN Creatinine Ratio 30.1 (10-20); Calcium 8.6 mg/dl (8.5-10.1); Creatinine Clr Calc Pharmacy 145.9 ml/min; Est GFR (African American) 127.5 ml/min; Potassium 3.9 mmol/L (3.5-5.1)
[2021-05-21 10:08] LABS: T4 Free Thyroxine 1.23 ng/dl (0.8-1.6)
[2021-05-21 10:45] LABS: Folate (Folic Acid) 12.4 ng/ml (>5.38)
[2021-05-21] MEDS: levoFLOXacin 500 MG TAB PO SCH (12:12)
[2021-05-21] MEDS ORDERED: STROKE PATIENT DISCHARGE STA (13:40)
--- NOTE | 2021-05-21 13:54 | Discharge Summary ---
Date of Service date of admission - May 15, 2021 date of discharge - May 21, 2021 Admission HPI Per Admitting Provider This patient is a 70-year-old female with a history of spina bifida with paraplegia, HTN, osteomyelitis of the right hip, Takotsubo cardiomyopathy, neurogenic bladder, lymphedema of the leg and C. difficile colitis, who presents to the ER with 1 week of slurred speech and right upper extremity weakness. She first noticed some numbness in the right forearm last week and then since then has not been able to do her transfers as well to her wheelchair due to weakness in the arm. She is able to raise the arm up but just feels its not quite as strong as it usually is. Her then started to notice slurred speech more so today than previously. In the ER, A CT of the head noncontrast showed loss of bay-white matter differentiation in the high left parietal lobe at the vertex that could represent subacute versus chronic ischemic change. She was also noted to have hydrocephalus but the patient reports this is chronic. CT angiogram of the head showed no evidence of major intracranial stenosis or major intracranial branch occlusion, but did again show moderate hydrocephalus. There are no previous studies for comparison. In addition to this, the patient also noted that she has an open wound to the back of the left calf that is more recent but she has not been covering it up. Her leg does appear erythematous, however her does not think it looks much worse than usual given her severe lymphedema in that leg. She has not had any fevers or chills, no alteration in mental status. She has no pain because she does not have sensation in the legs. She was given a dose of IV Zosyn in the ER for this. She will be admitted for stroke work-up and for treatment for possible left lower extremity cellulitis and wound. Principal Diagnosis 1. Left-sided parietal lobe stroke 2. LLE cellulitis 3. Left calf decubitus/venous ulcer 4. Nausea with vomiting - exact etiology uncertain, perhaps 2nd to reflux disease Discharge Exam Constitutional no acute distress and no altered mental status ENMT external ear and nose normal, oropharynx normal Respiratory normal respiratory effort, lungs clear to auscultation Auscultation: + wheezes (scant, hint of - scattered ) Cardiovascular Rate/Rhythm: regular rate and regular rhythm Heart Sounds: normal S1 and normal S2; no murmur Vessels: posterior tibial pulses present and dorsalis pedis pulses present; no JVD Extremities: + edema (chronic lymphedema b/l legs - no change; LLE worse than RLE) Gastrointestinal (Abdomen) Inspection/Auscultation: abdomen not distended Percussion/Palpation: abdomen nontender, no guarding and no hepatosplenomegaly Skin venous stasis changes b/l legs, worse on left. resolving cellulitis left acosta. resolving cellulitis left thigh - erythema retreating from previously placed demarkation line in the inguinal region on left. ulceration x 2 posterior left calf - serous drainage only. No purulence. Neurologic paraplegia b/l legs; right arm strength nearly 5/5 all muscle groups; 5/5 strength LUE. no facial droop. no dysarthria or aphasia. Psychiatric Orientation: alert and oriented x 3 Discharge Data Allergies Allergy/AdvReac Type Severity Reaction Status Date / Time nalidixic acid Allergy Unknown Unknown Verified 05/15/21 15:46 Consultations [facility] PT, OT Speech Therapy Ordered Studies Chest X-Ray 05/15/21 11:22 XR chest 1V portable HISTORY: 70 years-old Female Stroke Like Symptoms acute strokelike symptoms COMPARISON: Chest radiographs 04/13/2019 TECHNIQUE: Portable AP view of the chest FINDINGS: Cardiomediastinal and hilar silhouettes are within normal limits. Mild left hemidiaphragmatic elevation has improved from comparison. No pneumothorax, pleural effusion, airspace consolidation or overt pulmonary edema. Degenerative changes of the shoulders and spine. IMPRESSION: No acute process. ACT 112: Negative or not required by law. The above report was generated using voice recognition software. It may contain grammatical, syntax or spelling errors. Electronically signed by: Saeid Chong M.D. 05/15/2021 11:[address] 05/15/21 11:22 CT SCAN OF THE BRAIN WITHOUT IV CONTRAST CLINICAL HISTORY: Strokelike symptoms. COMPARISON STUDY: No priors. TECHNIQUE: Unenhanced axial CT scan of the brain is performed from the vertex to the skull base. A dose lowering technique was utilized adhering to the principles of ALARA. The examination is compromised by motion artifact. FINDINGS: Brain parenchyma: There is loss of bay-white differentiation in the high left parietal lobe at the vertex, best seen on axial image #26. There are age-related involutional changes noting moderate subcortical and periventricular microangiopathic change. There is no hemorrhage or mass effect. No extra-axial fluid collection is seen. Ventricles, sulci, cisterns: There is hydrocephalus, with marked dilatation of the lateral and third ventricles. Biventricular diameter measures up to 8 cm. There is a mild prominence of the cortical sulci and cisterns. Intracranial vasculature: There is atherosclerotic calcification of the cavernous carotid and vertebral arteries. Calvarium: Unremarkable. Sinuses and mastoids: The visualized paranasal sinuses are clear. The mastoid air cells are well pneumatized. Orbits: The bony orbits are grossly intact. IMPRESSION: 1. There is loss of bay-white matter differentiation identified in the high left parietal lobe at the vertex. This could represent subacute versus chronic ischemic change. Correlate with any prior outside imaging studies to assess for chronicity. This could be further assessed with MRI if clinically warranted. 2. There is no hemorrhage or mass effect. 3. Hydrocephalus. ACT 112: Negative or not required by law. Electronically signed by: Aaron Pandey M.D. 05/15/2021 2:32 PM Head CTA 05/15/21 11:22 CT angio head w con CLINICAL HISTORY: Stroke Like Symptoms TECHNIQUE: CT angiography of the head was performed in a dynamic helical fashion during intravenous administration of 120 cc of Optiray. MIP imaging was performed. A dose lowering technique was utilized adhering to the principles of ALARA. CT DOSE: 2044.78 mGy.cm COMPARISON STUDY: No previous studies for comparison. FINDINGS: There are no lesion suspicious for aneurysm. There are no major intracranial branch occlusions. The dural venous sinuses appear patent. Atheromatous changes are present within the cavernous carotids without evidence of hemodynamically significant stenosis. There is moderate hydrocephalus IMPRESSION: 1. Moderate hydrocephalus 2. No evidence of aneurysm 3. No evidence of major intracranial stenosis or major intracranial branch occlusion ACT 112: Negative or not required by law. Electronically signed by: Michael Taylor M.D. 05/15/2021 2:27 PM Neck CTA 05/15/21 11:22 CT angio neck with con CLINICAL HISTORY: Stroke Like Symptoms COMPARISON STUDY: No previous studies for comparison. TECHNIQUE: CT angiography was performed from the aortic arch to the skull base. MIP imaging was performed. The patient was scanned in a dynamic helical fashion during intravenous administration of 120 cc of Optiray. A dose lowering technique was utilized adhering to the principles of ALARA. CT DOSE: Technique: CT angiogram of the carotid and vertebral arteries was obtained using intravenous contrast and 3-D reconstruction. NASCET criteria was utilized. Findings: The right carotid revealed no evidence of aneurysm and no evidence of dissection. There is no evidence of hemodynamic significant stenosis. The left carotid revealed no evidence of hemodynamic significant stenosis. There is no evidence of aneurysm. There is no evidence of dissection. Atheromatous calcifications are present the level of both carotid bulbs as well as within the cavernous carotids without evidence of hemodynamically significant stenosis There is no evidence of hemodynamically significant vertebral stenosis. There is no evidence of vertebral dissection. IMPRESSION: No evidence of hemodynamically significant carotid or vertebral artery stenosis. No evidence of dissection. ACT 112: Negative or not required by law. Electronically signed by: Michael Taylor M.D. 05/15/2021 2:31 PM Brain MRI 05/15/21 18:29 MRI OF THE BRAIN COMBO CLINICAL HISTORY: Slurred speech. Right-sided weakness. COMPARISON STUDY: CT of the brain dated 05/15/2021. TECHNIQUE: MRI of the brain was performed utilizing various T1 and T2-weighted sequences in the axial, sagittal, and coronal planes. Contrast-enhanced sequences were acquired following the administration of 9.5 cc of Gadavist. The examination is degraded by motion artifact. FINDINGS: Brain parenchyma: There is an approximately 2.5 cm focus of restricted diffusion identified in the high left parietal lobe consistent with an acute to subacute infarct. Gyriform enhancement is noted within the infarcted parenchyma. No additional foci of restricted diffusion are identified. There is no hemorrhage or mass effect. There is mild to moderate microangiopathic change. No enhancing mass lesion is identified on the postcontrast images. Tiny chronic lacunar infarcts are noted in the right cerebellar hemisphere. There is cerebellar tonsillar ectopia. Ventricles, sulci, and cisterns: There is moderate hydrocephalus comment with significant dilatation of the lateral and third ventricles. There is only mild prominence of the cortical sulci and cisterns.. Pituitary and sella: Unremarkable. Intracranial vasculature: Normal flow voids are maintained at the skull base. Orbits: The bony orbits are grossly intact. Orbital contents are normal in appearance. Sinuses and mastoids: Clear. Calvarium: Unremarkable. Cervical cord: Partially visualized cervical spinal cord is normal in morphology and signal intensity. IMPRESSION: 1. There is an acute to subacute infarct in the high left parietal cortex. 2. No additional foci of acute ischemia are identified. 3. There is no hemorrhage or mass effect. 4. Hydrocephalus. ACT 112: Negative or not required by law. Electronically signed by: Aaron Pandey M.D. 05/15/2021 10:58 PM Venous Doppler Study 05/16/21 11:08 US venous doppler LE BI CLINICAL HISTORY: severe lymphedema, recent CVA; r/o DVT COMPARISON STUDY: 09/15/2017 FINDINGS: Real-time and color flow Doppler imaging were performed. Flow was seen within the femoral, popliteal and calf veins with no intraluminal thrombus demonstrated. The saphenous vein is patent. Common femoral waveforms demonstrate prominent pulsatility. This may indicate elevated right heart pressures. IMPRESSION: No evidence of lower extremity DVT. ACT 112: Negative or not required by law. Electronically signed by: Michael Taylor M.D. 05/16/2021 12:59 PM KUB X-Ray 05/16/21 15:01 XR KUB/Abdomen 1 view CLINICAL HISTORY: nausea/emesis COMPARISON STUDY: 09/17/2016 FINDINGS: The bones are osteopenic. The pelvis appears somewhat dysmorphic. There are surgical clips within the right upper quadrant consistent with a prior cholecystectomy. There is a severe thoracolumbar scoliosis. There is mild gaseous prominence of large and small bowel loops. There are no transition zones indicate bowel obstruction. There is scattered colonic stool. There is increased density of the bladder likely secondary to contrast excretion. IMPRESSION: 1. Nonobstructive bowel gas pattern. ACT 112: Negative or not required by law. Electronically signed by: Michael Taylor M.D. 05/16/2021 4:00 PM Chest X-Ray 05/17/21 11:32 SINGLE VIEW CHEST CLINICAL HISTORY: Cough. FINDINGS: An AP, portable, upright chest radiograph is compared to study dated 05/15/2021 and correlated with chest CT dated 09/21/2016. The examination is degraded by portable technique and patient rotation. The cardiomediastinal silhouette is unremarkable. There is chronic elevation of the left hemidiaphragm and mild bibasilar atelectasis. No airspace consolidation or large pleural effusion is identified. No pneumothorax is seen. The skeletal structures are osteopenic. The bony thorax is grossly intact. Degenerative change and scoliosis is noted in the thoracic spine. Arthritic change is noted in the shoulders. IMPRESSION: No active disease in the chest. ACT 112: Negative or not required by law. Electronically signed by: Aaron Pandey M.D. 05/17/2021 3:26 PM Abdomen/Pelvis CT 05/20/21 12:[address] WITH IV CONTRAST CT DOSE: HISTORY: persistent nausea and vomiting, eval ileus, eval esophagitis, etc TECHNIQUE: Multiaxial CT images of the abdomen and pelvis were performed following the use of intravenous contrast. A dose lowering technique was utilized adhering to the principles of ALARA. COMPARISON STUDY: Abdomen and pelvis CT 09/21/2018. FINDINGS: The lung bases are clear. No pneumoperitoneum. No pneumatosis. No change in the hypoplastic pelvic bones with chronic deformity of the bilateral hips. Soft tissue thickening surrounding the bilateral hips is also unchanged. 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 This is also unchanged. No acute fractures within the visualized osseous structures. Interval improvement in the right ischial decubitus ulcer compared to the prior study. Improvement in the destructive changes within the right posterior acetabulum/ischial tuberosity consistent with a healed osteomyelitis. Marked pelvic floor collapse with moderate perianal subcutaneous edema. Lobular bladder containing multiple small diverticula. The uterus is unremarkable. Moderate well-formed stool seen throughout the majority of the colon. No bowel wall thickening or obstruction. Tiny fat-containing umbilical hernia containing fluid and a knuckle small bowel. Mild body wall edema is noted. Stable 1.3 cm cyst within the left hepatic lobe. Cholecystectomy. The main portal vein is patent. The pancreas, adrenal glands, and spleen are unremarkable. Multiple bilateral renal hypodense lesions remain stable. These likely represent cysts. No right-sided hydronephrosis. There is mild fullness within the left renal collecting system and a mildly dilated ureter to the level of the left ureterovesical junction. No obstructing stones identified. This could be transient or due to the mass effect from the pelvic floor collapse. An occult obstructing lesion or stricture at the ureterovesical junction are considered less likely but not entirely excluded. No retroperito harry lymphadenopathy. Normal caliber abdominal aorta. IMPRESSION: 1. No bowel wall thickening or obstruction. 2. There is mild fullness within the left renal collecting system and a mildly dilated ureter to the level of the left ureterovesical junction. No obstructing stones identified. This could be transient or due to the mass effect from the pelvic floor collapse. An occult obstructing lesion or stricture at the ureterovesical junction are considered less likely but not entirely excluded. Consider follow-up nonemergent urology consultation for further evaluation. 3. Chronic/congenital changes again noted within the lumbar spine, pelvis, and hips as described above. The destructive change within the right ischial tuberosity has improved/healed in the interval. 4. Moderate edema within the perianal soft tissues. This is also likely chronic. 5. Marked pelvic floor collapse. 6. Additional findings as described above. ACT 112: Negative or not required by law. Electronically signed by: Joseph Sorensen M.D. 05/20/2021 1:38 PM Chest CTA 05/20/21 12:07 CT ANGIOGRAPHY OF THE CHEST, PULMONARY EMBOLUS PROTOCOL CLINICAL HISTORY: Cough; evaluate for aspiration. Evaluate for pulmonary embolus. COMPARISON STUDY: Chest CT September 21, 2016. Chest radiograph May 17, 2021. TECHNIQUE: Following IV administration of 120 mL of Optiray, helical axial images of the chest were obtained utilizing the pulmonary embolus protocol. Maximal intensity projections and sagittal and coronal reformats were viewed on an independent 3D workstation. IV contrast was administered without complication. Automated exposure control was utilized for the study. A dose lowering technique was utilized adhering to the principles of ALARA. CT DOSE: 2189.71 mGy.cm FINDINGS: No central pulmonary emboli are identified. Evaluation of the remainder of the pulmonary arteries is suboptimal due to suboptimal opacification and respiratory motion. There is mild cardiomegaly. No thoracic aortic dissection is present. There is no pericardial effusion. No enlarged thoracic lymph nodes are present. No pneumothorax or pleural effusion is present. No consolidation to suggest pneumonia. Central airways are patent. No acute rib or thoracic spine fracture is noted. Scoliosis of the thoracolumbar spine is partially imaged. Abdomen and pelvis will be reported separately. IMPRESSION: 1. No central pulmonary emboli. Remainder of pulmonary arteries suboptimally assessed due to respiratory motion and suboptimal opacification. 2. No consolidation to suggest pneumonia. 3. Mild cardiomegaly. ACT 112: Negative or not required by law. Electronically signed by: Kwabena Montalvo M.D. 05/20/2021 1:33 PM Echocardiogram - * EF 55-60% * grade 1 diastolic dysfunction * no significant valvular dysfunction * no source of thrombus * mild [facility] Hospital Course (1) Stroke: Left parietal lobe stroke. Etiology -- not fully certain, but cardioembolic source suspected. RUE weakness and right hand weakness essentially resolved by time of discharge. Has minor sensory symptoms of right arm that have persisted, however. CTA head/neck negative. Echo w/o thrombus. No a.fib seen on tele during this stay. [id number] cardioembolic cause is suspected. Plan 30-day event monitor post-discharge to exclude PAF. This monitor will be mailed to her home shortly after discharge. Asa 81mg daily recommended by [facility] neurology for secondary stroke prevention -- unless a.fib is seen on home monitoring and at that time would then switch to anticoagulation. Continue lipitor 40mg daily (LDL 97). Evaluated by PT/OT and felt to be a candidate to return home with her . Uses power wheelchair to get around due to severe paraplegia. (2) Pressure ulcer of left calf: STAGE 3 Seen in consult by the wound care team. Aquacel Ag with optifoams advised. Treating the secondary cellulitis. See below. Recommended to patient that she follow-up with the [facility] as she is at high risk of the ulcers not healing. She would benefit from aggressive lymphedema treatment as well given her severe, b/l lymphedema. (3) Cellulitis: LLE. Extensive -- improved with IV antibiotics during her stay. Source - left calf ulcers. Cellulitis involved the left thigh and the left calf region. Prior skin infections have grown coag neg staph, corynebacterium, enterobacter, etc in the past. Had limited improvement with IV rocephin with vancomycin. Thus, changed to aztreonam + vancomycin. She experienced clinical improvement on aztreonam which might suggest gram negative bacterial involvement. Changed aztreonam to PO levaquin and received 3 days of such while here. For MRSA coverage - doxycycline advised. Plan at least 7 days of PO levaquin/doxycycline after discharge. (4) Lymphedema of both lower extremities: severe, chronic, 2nd to paraplegia status. no DVT on dopplers this admission. would really benefit from chronic lymphedema treatment. (5) HTN (hypertension): Uncontrolled and labile during her stay. Question if some of her BP lability is due to neurogenic causes from her hydrocephalus? Amlodipine initiated and titrated to 5mg/day. (6) Neurogenic bladder: 2nd to paraplegia/spina bifida (7) Paraplegia: 2nd spina bifida wheel-chair / power-chart dependent (8) Spina bifida: longstanding diagnosis as above also with chronic hydrocephalus (9) Dehydration: Early in stay, 2nd to nausea/vomiting/poor oral intake. IV fluids given and dehydration resolved. (10) Hypokalemia: resolved with repletion (11) Chronic cough: asthma/bronchial issue? GERD? other? CXRs this admission w/o acute pathology and o2 sats in RA wnl. CTA chest also negative. outpatient f/u with pulmonary advised to obtain PFTs, etc. suspect GERD causing the cough, however, as she has frequent throat clearing and had significant nausea this admission. (12) Apnea: notes snoring at home during this stay she had documented night-time desaturation formal overnight oximetry study was obtained and was very abnormal needs night-time O2 2 liters nocturnal O2 was prescribed at discharge HOWEVER - ultimately needs formal sleep study and NIPPV for definitive treatment (13) Nausea & vomiting: This was an ongoing issue the entire stay, some days worse than others, without specific etiology found. CT abd/pelvis did not show acute findings. Abdominal x-ray without acute findings. LFTs wnl. She does not have a gall bladder. I suspect severe GERD as the culprit but can't confirm such. Cortisol level was normal. TSH and FT4 were both normal. She improved with H2 xuan and carafate. At discharge she was prescribed once daily PPI along with 1-week of carafate. Strongly consider outpatient GI follow-up for possible EGD to exclude any other upper GI pathology. (14) Hydronephrosis: Seen incidentally on CT abd/pelvis. No obstructing stone was seen. Recommend outpatient urology follow-up for this. [facility] Attestation I certify that this patient is under my care and that I, or a physicians certified first assistant working with me, had a face to-face encounter that meets the [id number] encounter requirements with this patient. The encounter with the patient was in whole, or in part, for the following medi lala condition, which is the primary reason for home health care (list medical condition): PT/OT I certify that, based on my findings, the following services are medically ne [facility] services: My clinical findings support the need for the above services because: PT Assessment for Endurance / Balance / Strength Skilled Nsg Assessment for Complications r/t CVA Vital Signs Further, I certify that my clinical findings support that this patient is homebound (i.e. absences from home require considerable and taxing effort and are for medical reasons or denominational services or infrequently or of short duration when for other reasons) because: Chair Bound; Requires Transfer Assist Certification for Home Health Services: Based on the above findings, I certify that this patient is confined to the home and needs intermittent senior care care, physical therapy and/or speech therapy or continues to need occupational therapy. The patient is under my care, and I have initiated the establishment of the plan of care. This patient will be followed by a physician who will periodically review the plan of care. Total Time Total Time Spent Total Time Spent (In Minutes): 50 Total Time Includes: Examination of the Patient, Discharge Planning, Medication Reconciliation and Communication With Other Providers Discharge Plan Discharge Items Patient Disposition: Home - Home Health Services Reason For Visit: RIGHT SIDED WEAKNESS Discharge Diagnosis: 1. right arm weakness due to stroke. Right arm weakness MUCH improved. 2. cellulitis / skin infection of left thigh and left calf - improving. 3. two ulcers of left leg (calf area) - stable. 4. nausea with regurgitation/vomiting - suspect severe reflux disease. CAT scan of abdomen normal. 5. chronic cough - asthma? reflux? Follow-up with pulmonary. 6. suspected sleep apnea with resulting low oxygen levels at night-time - oxygen at bedtime and with naps, 2 Liters. Activity: Resume your previous activity Non-emergency contact: Primary Care Provider, Specialist and Neurologist Call non-emergency contact if: you have any medication questions, your symptoms worsen, you have a fever, your wound has increased redness, your wound has increased drainage and your wound pain has increased Follow-up/Referrals: [facility] Pulmonology [Provider Group] (first available appointment; diagnoses -- chronic cough; suspected GASTON/CSA; failed overnight oximetry in the hospital. ) Florentino Davila MD [Physician] - (f/u [address] Davila or his partners; dx - stroke ) Roxanne Guerin CRNP [Nurse Practitioner] - (1 week for Left calf ulcerations/decubs. Severe lymphedema - candidate for lymphedema treatment??) Bobbi Samuels CRNP [Primary Care Provider] - (1 week with PCP ) Diet: Heart Healthy Addtl Attending Provider Instructions: Ms Arreguin, You were hospitalized for the problems listed above in "discharge diagnoses." You have made a nice recovery from the stroke. Your right arm is nearly back to normal strength. It may take a few weeks or longer for the numb feeling to fully resolved. The [facility] Neurologist saw you while here and has recommended aspirin once daily to prevent another stroke and cholesterol medication. We are uncertain of the exact cause of the stroke. Therefore - we are going to perform the 30-day monitor at your home to check for abnormal heart rhythms that could have caused the stroke. This will be mailed to your home in the next week or so with instructions on its use. You also had skin infection of the left leg. It is resolving nicely. Take the following antibiotics - * doxycycline 100mg twice daily for 7 days, first dose tonight * this medication can cause stomach upset periodically therefore we are sending you home on acid reducers * it can rarely cause a rash if you get lots of sun exposure while taking it; thus cover up/use sunscreen well * levofloxacin 500mg once farrell for 7 days, first dose tomorrow * take probiotics once daily for 10 days to help prevent diarrhea from the antibiotics The exact cause of your nausea and vomiting was not 100% certain. However, I am suspicious you may have reflux disease. Please take - * pantoprazole 40mg once daily; take your first dose upon getting home * sucralfate 1gm before each meal for 1 week then stop; start today For high blood pressure take amlodipine 5mg once daily every morning. Finally, we have prescribed oxygen for you to use at bedtime and with naps. You likely have sleep apnea (your oxygen levels drop during sleep). You will need to have a formal sleep study done by the equity structurer and get different treatment for this condition. Follow-up -- see separate section Return to [facility] if -- * you have any new symptoms of a stroke as listed below * you have fevers over 100 degrees * you have severe diarrhea * your left leg is getting worse - more redness, drainage from the ulcers, etc * any other concerns It was my pleasure caring for you! -Dr Mildred Graves Adjunct Professor [employer] Provider Instructions: Risk Factors for Stroke: You can reduce your chances of stroke by working with your medical provider to adopt a healthy lifestyle. Some specific ways to lower your chance of stroke are: * If you are a smoker, now is the time to stop smoking cigarettes * If you are diabetic, improve the control of your blood sugars * Avoid excessive amounts of alcohol * Control high blood pressure * Lose weight if you are overweight * Be sure to lead an active lifestyle * Eat a healthy diet low in salt, cholesterol and fat You should know about other risk factors for stroke that you are unable to control. These include: * Age 55 years or older * Male gender * Certain racial groups: , or / * Family History of Stroke, Mini stroke or Heart Attack * Sickle Cell Disease Follow Up: It is important for you to keep your follow up appointments with your medical provider. Who to Call and When: Medical Emergencies: Call 911 immediately if you experience any of the follo wing warning signs and symptoms of Stroke: * Sudden numbness or weakness of the face, arm or leg, especially on one side of the body * Sudden confusion, trouble speaking or understanding * Sudden trouble seeing in one or both eyes * Sudden trouble walking, dizziness, loss of balance or coordination * Sudden severe headache with no cause Do not delay calling 911 if you experience any warning signs or symptoms of a stroke. Delay in seeking medical attention may affect what treatments can be given to you. . Pending Studies at Discharge: No Stand-Alone Forms: Medications to Prevent Stroke, My [facility], Smoking Cessation Medications and DC Order Prescriptions: New (DME) Oxygen Home Liters Per Minute See Rx Instructions .ROUTE .MEDSUPPLY Qty: 1 RF: 0 atorvastatin 40 mg Tablet 40 mg PO QAM Qty: 30 RF: 2 doxycycline hyclate 100 mg Capsule 100 mg PO BID@0700,1900 7 Days Qty: 14 RF: 0 amlodipine [Norvasc] 5 mg Tablet 5 mg PO QAM Qty: 30 RF: 2 aspirin 81 mg Tablet,Delayed Release (Dr/Ec) 81 mg PO QAM Qty: 90 RF: 3 levofloxacin 500 mg Tablet 500 mg PO DAILY@1100 7 Days Qty: 7 RF: 0 pantoprazole [Protonix] 40 mg tablet,delayed release (DR/EC) 40 mg PO QAM Qty: 30 RF: 2 sucralfate [Carafate] 1 gram tablet 1 g PO AC 7 Days Qty: 21 RF: 0 Saccharomyces boulardii 250 mg capsule 250 mg PO DAILY 10 Days Qty: 10 RF: 0 Continued albuterol sulfate 90 mcg/actuation HFA aerosol inhaler 2 puff Inhalation DIRECTED PRN (Reason: Shortness Of Breath Or Wheezing) RF: 0 Discharge Orders: Discharge Order (Routine); Ordered 05/21/21 Ordered By: Umesh Leos/Other Patient Handouts: 5 Steps for Eating Healthier, A1C Admission Data Admit Date/Time: 05/15/21 18:29 Attending Provider: Umesh Levy Admit Provider: Susi Card Primary Care Provider: Bobbi Samuels Other Providers: Susi Card ; Kenrick Avelar ; [facility],Care ; [facility] Other Interventions: Discharge Summary Assessment (RN) Last Done: 05/21/21 15:21 Coding Level of Care Code D/C Day Management >30 mins Diagnoses Stroke I63.9 Pressure ulcer of left calf L89.893 Pressure injury stage: stage 3 Cellulitis L03.90 Site of cellulitis: unspecified site Lymphedema of both lower extremities I89.0 HTN (hypertension) I10 Neurogenic bladder N31.9 Paraplegia G82.20 Spina bifida Q05.9 Presence of hydrocephalus: unspecified hydrocephalus presence Spinal region: unspecified Dehydration E86.0 Hypokalemia E87.6 Chronic cough R05 Apnea R06.81 Nausea & vomiting R11.2 Hydronephrosis N13.30
--- NOTE | 2021-06-01 13:39 | Pharmacy Report ---
Pharmacy Vanc AUC Short Note - Date of Service May 18, 2021 - Assessment & Plan Assessment 70 year old F receiving vancomycin/ceftriaxone for treatment of LLE cellulitis with ulceration. Patient with paraplegia secondary to spina bifida. Pertinent microbiologic data includes: blood culture growing NGTD. Day # 3 of antimicrobial therapy. Plan Vancomycin * AUC/DESTINEY is the preferred PK/PD target for vancomycin * AUC guided dosing is effective and associated with decreased risk of nephrotoxicity compared to traditional trough targets * Trough level of 18.6 mcg/mL is predicted to achieve target AUC/DESTINEY of 400-600 mg/L.hr and may be associated with a 14 % risk of nephrotoxicity * Change to 1000 mg IV every 12 hours * Trough or random level ordered for: 05/19/21 @9834 Pharmacy will continue to follow and will adjust dose/frequency as necessary. Thank you.
== END 2021-05-21 17:35 | disposition home health service (06) | DRG 64 ==
LOC: ED 10:35 → SUATTDRO 18:29 → 2E 18:29
DX: I25.2 Old myocardial infarction; J45.909 Unspecified asthma, uncomplicated; R11.2 Nausea with vomiting, unspecified; R20.0 Anesthesia of skin; Z98.890 Other specified postprocedural states; Z86.69 Personal history of other diseases of the nervous system and sense organs; R63.8 Other symptoms and signs concerning food and fluid intake; Q05.9 Spina bifida, unspecified; I63.40 Cerebral infarction due to embolism of unspecified cerebral artery; R05 Cough; E86.0 Dehydration; G91.9 Hydrocephalus, unspecified; N13.30 Unspecified hydronephrosis; N31.9 Neuromuscular dysfunction of bladder, unspecified; K59.00 Constipation, unspecified; R47.81 Slurred speech; R09.02 Hypoxemia; Z86.19 Personal history of other infectious and parasitic diseases; I89.0 Lymphedema, not elsewhere classified; E87.6 Hypokalemia; R29.898 Other symptoms and signs involving the musculoskeletal system; L03.116 Cellulitis of left lower limb; L89.893 Pressure ulcer of other site, stage 3; G82.20 Paraplegia, unspecified; Z99.3 Dependence on wheelchair; G47.30 Sleep apnea, unspecified; K21.9 Gastro-esophageal reflux disease without esophagitis; I10 Essential (primary) hypertension; Z88.1 Allergy status to other antibiotic agents

== ENCOUNTER 2022-01-19 21:57 | Inpatient (IN) ==
--- NOTE | 2022-01-19 22:39 | Emergency Department Note ---
Impression & Plan Hypothermia, Acute alteration in mental status ED Provider Note NAME: JR DIAZ AGE: 71 SEX: F : 1950 ARRIVES VIA: Walk-In INFORMANT: Patient, the patient's significant other ED PROVIDER(S): Theo Strickland DO CHIEF COMPLAINT: Strokelike symptoms HPI: The patient is a 71-year-old female who presented to the emergency department with her for an evaluation of strokelike symptoms. The patient has been noted to have decrease activity and some lethargy according to her . He states that she had a similar episode last summer when she had a stroke. She denies having any headache. She has had no recent trauma. She denies having any fever or cough. Her was going to call the family doctor in the morning but brought her to the emergency department this evening because the last time she had the symptoms she waited too long and turned out to have a stroke. She has had no recent trauma. She is been compliant with her usual outpatient medications. She does have a history of lower extremity amputations as well as osteomyelitis. ROS: See above HPI for pertinent positives & negatives. A total of 10 systems reviewed and were otherwise negative. PAST MEDICAL HISTORY: See Below PAST SURGICAL HISTORY: See Below FAMILY HISTORY: See Below SOCIAL HISTORY: See Below HOME MEDICATIONS: See Below ALLERGIES: See Below VITALS: See Below PHYSICAL EXAMINATION: GENERAL: The patient is awake and answers questions slowly. She does not appear to be anxious. EYES: The conjunctivae are clear. The pupils are round and reactive. EARS, NOSE, MOUTH AND THROAT: The nose is without any evidence of any deformity. Mucous membranes are dry. NECK: The neck is nontender and supple. RESPIRATORY: Normal respiratory effort is noted there is no evidence of wheezing rhonchi or rales CARDIOVASCULAR: Regular rate and rhythm noted there no murmurs rubs or gallops normal S1 normal S2. GASTROINTESTINAL: The abdomen is soft. Abdomen is nontender. MUSCULOSKELETAL/EXTREMITIES: Bilateral lower extremity amputations were noted. SKIN: Skin is warm and dry. Pedal edema was noted bilaterally. NEUROLOGIC: Patient is awake to verbal commands. She is oriented to person place and situation. Strength was symmetric but diminished. Speech was slow and understandable. MEDICAL DECISION MAKING: The patient is a 71-year-old female who presented to the emergency department with her significant other for an evaluation of altered mental status. The patient was found to be hypothermic. She was placed on a warming blanket. Septic work-up was undertaken. The patient was given empiric antibiotics. No definite source for infection could be found. The patient does have a history of CVA. Her head CT shows significant chronic changes but nothing acute. I discussed the patient's laboratory and radiographic studies with her. I discussed her case with the on-call [facility] hospitalist group. They will evaluate the patient in the emergency department for further management and disposition. Triage Nursing notes reviewed. Prior medical records reviewed Vital Signs: reviewed and remarkable for hypothermia. Differential diagnosis: Infection, dehydration, metabolic abnormality, hypo/hyperglycemia, electrolyte disturbance, anemia, hypoxia, cardiac sources, intracerebral event, toxicologic, neurologic, as well as other pathologies. ER treatment provided: See below Diagnostics interpreted by me: ECG: EKG was obtained in the emergency department. My interpretation is normal sinus rhythm at 64 bpm. There is no ectopy. LVH was suggested by voltage criteria. This was compared to a tracing from May 152020. No changes were noted. Cardiac Monitoring: An order was placed for continuous cardiac monitoring. The monitor shows a rate of 60 bpm with sinus rhythm. Laboratory studies: As stated above and show below. Imaging studies: See below Consultation(s): The [facility]ist was notified about the patient. Past Med/Surg History Medical History Acute CHF (congestive heart failure) Acute [id number]-[id number] myocardial infarction Cellulitis Hiatal hernia Hypertension Lymphedema of both lower extremities Meningitis spinal Neurogenic bladder (06/21/13) Paraplegia (06/21/13) Spina bifida (06/21/13) Takotsubo cardiomyopathy Surgical History H/O bone graft H/O section Hx of cholecystectomy Family History Father Hypertension Myocardial infarction Herniated disc Mother Myocardial infarction Colorectal cancer Uterine cancer Other Family history non-contributory Social History Smoking Status: Never smoker Hx Alcohol Use: No Hx Substance Use: No Preferred Language: Lithuanian Communication Ability: Effective Visual Impairment: Limited Hearing Ability: Normal Market Survey Representative Required: No Beliefs That Will Affect Care: None marital status: Current Living Situation: Spouse current occupational status: retired Feels Safe at Home: Yes caffeine: Yes (tea) during the past year weight has: increased > 10 lbs Physical Activity Frequency: Does not Exercise Do you think of yourself as: straight/heterosexual Gender Identity: Female Assistive Devices: CPAP, Glasses, Oxygen - at Night and Wheelchair Allergies Allergies Allergy/AdvReac Type Severity Reaction Status Date / Time nalidixic acid Allergy Unknown Unknown Verified 01/19/22 23:54 Home Meds Home Medications Medication Instructions Recorded Confirmed albuterol sulfate 90 mcg/actuation 2 puff INHALATION DIRECTED PRN 09/21/18 01/19/22 aerosol inhaler pantoprazole 40 mg tablet,delayed 40 mg PO DAILY 10/20/21 01/19/22 release amoxicillin 500 mg capsule 500 mg PO TID 01/19/22 01/19/22 Previous Rx's Medication Instructions Recorded Oxygen Home #1 ea 05/21/21 amlodipine 5 mg tablet (Norvasc) 5 mg PO QAM #30 tab 05/21/21 aspirin 81 mg tablet,delayed 81 mg PO QAM #90 tab 05/21/21 release atorvastatin 40 mg tablet 40 mg PO QAM #30 tab 05/21/21 collagenase clostridium histo. 250 1 applic TOPICAL DAILY 14 Days #90 01/04/22 unit/gram topical ointment (Santyl) g cefdinir 300 mg capsule 300 mg PO BID #28 cap 01/07/22 Results & Data (ED) Vital Signs Vital Signs - 24 hr 01/19/22 21:58 01/19/22 22:31 01/19/22 22:46 Temperature 31.8 C L Temperature Source Rectal Pulse Rate 66 Pulse Rate [Right Ear Lobe] 69 68 Pulse Rhythm Pulse Rhythm [Right Ear Lobe] Regular Regular Pulse Strength [Right Ear Lobe] Normal Normal Respiratory Rate 18 19 19 Respiratory Effort / Characteristics Non-Labored Spontaneous Non-Labored Spontaneous Non-Labored Spontaneous Respiratory Depth Normal Normal Normal Respiratory Pattern Regular Regular Blood Pressure 141/70 H Blood Pressure [Left Arm] Blood Pressure Mean 93 Blood Pressure Mean [Left Arm] Blood Pressure Position Sitting Blood Pressure Position [Left Arm] Pulse Oximetry 97 93 92 Oxygen Delivery Method Room Air Room Air Room Air Sepsis Recent Fever Within 48 Hours No Sepsis New/Unexplained Change in Mental Status No Sepsis Action Taken by Nursing No Action Required 01/19/22 23:00 01/19/22 23:01 01/19/22 23:39 Temperature Temperature Source Pulse Rate 69 Pulse Rate [Right Ear Lobe] 78 69 Pulse Rhythm Regular Pulse Rhythm [Right Ear Lobe] Regular Regular Pulse Strength [Right Ear Lobe] Normal Normal Respiratory Rate 18 18 18 Respiratory Effort / Characteristics Non-Labored Spontaneous Non-Labored Spontaneous Respiratory Depth Normal Normal Respiratory Pattern Regular Blood Pressure Blood Pressure [Left Arm] 108/68 Blood Pressure Mean Blood Pressure Mean [Left Arm] 81 Blood Pressure Position Blood Pressure Position [Left Arm] Sitting Pulse Oximetry 92 99 99 Oxygen Delivery Method Room Air Room Air Room Air Sepsis Recent Fever Within 48 Hours Sepsis New/Unexplained Change in Mental Status Sepsis Action Taken by Nursing 01/19/22 23:41 01/20/22 00:00 01/20/22 00:30 Temperature Temperature Source Pulse Rate Pulse Rate [Right Ear Lobe] Pulse Rhythm Pulse Rhythm [Right Ear Lobe] Pulse Strength [Right Ear Lobe] Respiratory Rate 18 19 18 Respiratory Effort / Characteristics Non-Labored Non-Labored Spontaneous Non-Labored Spontaneous Respiratory Depth Respiratory Pattern Blood Pressure Blood Pressure [Left Arm] Blood Pressure Mean Blood Pressure Mean [Left Arm] Blood Pressure Position Blood Pressure Position [Left Arm] Pulse Oximetry 99 98 100 Oxygen Delivery Method Room Air Room Air Room Air Sepsis Recent Fever Within 48 Hours Sepsis New/Unexplained Change in Mental Status Sepsis Action Taken by Nursing 01/20/22 00:46 01/20/22 01:00 01/20/22 01:30 Temperature 31.9 C L Temperature Source Rectal Pulse Rate Pulse Rate [Right Ear Lobe] 66 68 Pulse Rhythm Pulse Rhythm [Right Ear Lobe] Regular Regular Pulse Strength [Right Ear Lobe] Normal Normal Respiratory Rate 18 18 18 Respiratory Effort / Characteristics Non-Labored Spontaneous Non-Labored Spontaneous Non-Labored Spontaneous Respiratory Depth Normal Normal Respiratory Pattern Regular Blood Pressure Blood Pressure [Left Arm] 129/71 111/66 Blood Pressure Mean Blood Pressure Mean [Left Arm] 90 81 Blood Pressure Position Blood Pressure Position [Left Arm] Sitting Lying Pulse Oximetry 99 99 98 Oxygen Delivery Method Room Air Room Air Room Air Sepsis Recent Fever Within 48 Hours Sepsis New/Unexplained Change in Mental Status Sepsis Action Taken by Detention Medications Current Medication List: was personally reviewed by me Laboratory Data Attestation: I reviewed the patient's lab results. Result diagrams: 01/19/22 22:43 01/19/22 23:50 Lab Results 01/19/22 01/19/22 01/19/22 Range/Units 22:43 22:43 22:43 WBC (4.8-10.8) K/uL RBC (4.2-5.4) M/uL Hgb (12.0-16.0) g/dL Hct (37-47) % MCV (80-100) fL MCH (25-34) pg MCHC (32-36) g/dL RDW Std Deviation (36.4-46.3) fL RDW Coeff of Deanna (11.5-14.5) % Plt Count (130-400) K/uL MPV (7.4-10.4) fL Immature Gran % (Auto) % Neut % (Auto) % Lymph % (Auto) % Lassen % (Auto) % Eos % (Auto) % Baso % (Auto) % Neut # (Auto) (1.4-6.5) K/uL Lymph # (Auto) (1.2-3.4) K/uL Lassen # (Auto) (0.11-0.59) K/uL Eos # (Auto) (0-0.5) K/uL Baso # (Auto) (0-0.2) K/uL Immature Gran # (Auto) (0.00-0.02) K/uL PT (9.0-12.0) Seconds INR (0.9-1.1) APTT (21.0-31.0) Seconds PTT Ratio Sodium 138 (136-145) mmol/L Potassium (3.5-5.1) mmol/L Chloride 101 (98-107) mmol/L Carbon Dioxide 27 (21-32) mmol/L Anion Gap 10 (3-11) BUN 41 H (6-23) mg/dl Creatinine 0.70 (0.6-1.2) mg/dl Est Cr Clr Drug Dosing Not Reportable Est GFR ( Amer) 101.7 ml/min Est GFR (Non-Af Amer) 87.8 ml/min BUN/Creatinine Ratio 58.6 H (10-20) Glucose 115 H (70-99(Fasting)) mg/dl POC Glucose (70-99) mg/dl Calcium 10.5 H (8.5-10.1) mg/dl Magnesium 2.0 (1.7-2.4) mg/dl Total Bilirubin 0.6 (0.2-1.0) mg/dl AST (13-39) U/L ALT 114 H (7-52) U/L Alkaline Phosphatase 133 H (34-104) U/L Troponin I < 0.03 (0-0.04) ng/ml Total Protein 7.8 (6.0-8.3) gm/dl Albumin 4.1 (3.4-5.0) gm/dl Globulin 3.7 (2.5-4.0) gm/dl Albumin/Globulin Ratio 1.1 (0.9-2) Procalcitonin Cancelled TSH Cancelled Free T4 (0.61-1.60) ng/dl Urine Color Urine Appearance (Clear) Urine pH (4.5-7.5) Ur Specific Wheeling (1.000-1.030) Urine Protein (Negative) Urine Glucose (UA) (Negative) Urine Ketones (Negative) Urine Blood (Negative) Urine Nitrite (Negative) Urine Bilirubin (Negative) Urine Urobilinogen (Negative) Ur Leukocyte Esterase (Negative) SARS-CoV-2, RNA, NAAT (NEGATIVE) 01/19/22 01/19/22 01/19/22 Range/Units 22:43 22:43 22:45 WBC 7.14 (4.8-10.8) K/uL RBC 4.16 L (4.2-5.4) M/uL Hgb 12.0 (12.0-16.0) g/dL Hct 37.3 (37-47) % MCV 89.7 (80-100) fL MCH 28.8 (25-34) pg MCHC 32.2 (32-36) g/dL RDW Std Deviation 54.8 H (36.4-46.3) fL RDW Coeff of Deanna 16.9 H (11.5-14.5) % Plt Count 178 (130-400) K/uL MPV 11.3 H (7.4-10.4) fL Immature Gran % (Auto) 0.1 % Neut % (Auto) 72.4 % Lymph % (Auto) 17.1 % Lassen % (Auto) 4.6 % Eos % (Auto) 5.7 % Baso % (Auto) 0.1 % Neut # (Auto) 5.16 (1.4-6.5) K/uL Lymph # (Auto) 1.22 (1.2-3.4) K/uL Lassen # (Auto) 0.33 (0.11-0.59) K/uL Eos # (Auto) 0.41 (0-0.5) K/uL Baso # (Auto) 0.01 (0-0.2) K/uL Immature Gran # (Auto) 0.01 (0.00-0.02) K/uL PT 11.4 (9.0-12.0) Seconds INR 1.1 (0.9-1.1) APTT 28.1 (21.0-31.0) Seconds PTT Ratio 1.0 Sodium (136-145) mmol/L Potassium (3.5-5.1) mmol/L Chloride (98-107) mmol/L Carbon Dioxide (21-32) mmol/L Anion Gap (3-11) BUN (6-23) mg/dl Creatinine (0.6-1.2) mg/dl Est Cr Clr Drug Dosing Est GFR ( Amer) ml/min Est GFR (Non-Af Amer) ml/min BUN/Creatinine Ratio (10-20) Glucose (70-99(Fasting)) mg/dl POC Glucose (70-99) mg/dl Calcium (8.5-10.1) mg/dl Magnesium (1.7-2.4) mg/dl Total Bilirubin (0.2-1.0) mg/dl AST (13-39) U/L ALT (7-52) U/L Alkaline Phosphatase (34-104) U/L Troponin I (0-0.04) ng/ml Total Protein (6.0-8.3) gm/dl Albumin (3.4-5.0) gm/dl Globulin (2.5-4.0) gm/dl Albumin/Globulin Ratio (0.9-2) Procalcitonin TSH Free T4 (0.61-1.60) ng/dl Urine Color Urine Appearance (Clear) Urine pH (4.5-7.5) Ur Specific Wheeling (1.000-1.030) Urine Protein (Negative) Urine Glucose (UA) (Negative) Urine Ketones (Negative) Urine Blood (Negative) Urine Nitrite (Negative) Urine Bilirubin (Negative) Urine Urobilinogen (Negative) Ur Leukocyte Esterase (Negative) SARS-CoV-2, RNA, NAAT NEGATIVE (NEGATIVE) 01/19/22 01/19/22 01/19/22 Range/Units 22:48 23:50 23:50 WBC (4.8-10.8) K/uL RBC (4.2-5.4) M/uL Hgb (12.0-16.0) g/dL Hct (37-47) % MCV (80-100) fL MCH (25-34) pg MCHC (32-36) g/dL RDW Std Deviation (36.4-46.3) fL RDW Coeff of Deanna (11.5-14.5) % Plt Count (130-400) K/uL MPV (7.4-10.4) fL Immature Gran % (Auto) % Neut % (Auto) % Lymph % (Auto) % Lassen % (Auto) % Eos % (Auto) % Baso % (Auto) % Neut # (Auto) (1.4-6.5) K/uL Lymph # (Auto) (1.2-3.4) K/uL Lassen # (Auto) (0.11-0.59) K/uL Eos # (Auto) (0-0.5) K/uL Baso # (Auto) (0-0.2) K/uL Immature Gran # (Auto) (0.00-0.02) K/uL PT (9.0-12.0) Seconds INR (0.9-1.1) APTT (21.0-31.0) Seconds PTT Ratio Sodium (136-145) mmol/L Potassium (3.5-5.1) mmol/L Chloride (98-107) mmol/L Carbon Dioxide (21-32) mmol/L Anion Gap (3-11) BUN (6-23) mg/dl Creatinine (0.6-1.2) mg/dl Est Cr Clr Drug Dosing Est GFR ( Amer) ml/min Est GFR (Non-Af Amer) ml/min BUN/Creatinine Ratio (10-20) Glucose (70-99(Fasting)) mg/dl POC Glucose (70-99) mg/dl Calcium (8.5-10.1) mg/dl Magnesium (1.7-2.4) mg/dl Total Bilirubin (0.2-1.0) mg/dl AST (13-39) U/L ALT (7-52) U/L Alkaline Phosphatase (34-104) U/L Troponin I (0-0.04) ng/ml Total Protein (6.0-8.3) gm/dl Albumin (3.4-5.0) gm/dl Globulin (2.5-4.0) gm/dl Albumin/Globulin Ratio (0.9-2) Procalcitonin < 0.05 TSH 10.727 H Free T4 1.10 (0.61-1.60) ng/dl Urine Color Yellow Urine Appearance Clear (Clear) Urine pH 5.0 (4.5-7.5) Ur Specific Whe[place] 1.018 (1.000-1.030) Urine Protein Negative (Negative) Urine Glucose (UA) Negative (Negative) Urine Ketones Negative (Negative) Urine Blood Negative (Negative) Urine Nitrite Negative (Negative) Urine Bilirubin Negative (Negative) Urine Urobilinogen Negative (Negative) Ur Leukocyte Esterase Negative (Negative) SARS-CoV-2, RNA, NAAT (NEGATIVE) 01/19/22 01/19/22 Range/Units 23:50 23:50 WBC (4.8-10.8) K/uL RBC (4.2-5.4) M/uL Hgb (12.0-16.0) g/dL Hct (37-47) % MCV (80-100) fL MCH (25-34) pg MCHC (32-36) g/dL RDW Std Deviation (36.4-46.3) fL RDW Coeff of Deanna (11.5-14.5) % Plt Count (130-400) K/uL MPV (7.4-10.4) fL Immature Gran % (Auto) % Neut % (Auto) % Lymph % (Auto) % Lassen % (Auto) % Eos % (Auto) % Baso % (Auto) % Neut # (Auto) (1.4-6.5) K/uL Lymph # (Auto) (1.2-3.4) K/uL Lassen # (Auto) (0.11-0.59) K/uL Eos # (Auto) (0-0.5) K/uL Baso # (Auto) (0-0.2) K/uL Immature Gran # (Auto) (0.00-0.02) K/uL PT (9.0-12.0) Seconds INR (0.9-1.1) APTT (21.0-31.0) Seconds PTT Ratio Sodium (136-145) mmol/L Potassium 4.1 (3.5-5.1) mmol/L Chloride (98-107) mmol/L Carbon Dioxide (21-32) mmol/L Anion Gap (3-11) BUN (6-23) mg/dl Creatinine (0.6-1.2) mg/dl Est Cr Clr Drug Dosing Est GFR ( Amer) ml/min Est GFR (Non-Af Amer) ml/min BUN/Creatinine Ratio (10-20) Glucose (70-99(Fasting)) mg/dl POC Glucose 110 H (70-99) mg/dl Calcium (8.5-10.1) mg/dl Magnesium (1.7-2.4) mg/dl Total Bilirubin (0.2-1.0) mg/dl AST 83 H (13-39) U/L ALT (7-52) U/L Alkaline Phosphatase (34-104) U/L Troponin I (0-0.04) ng/ml Total Protein (6.0-8.3) gm/dl Albumin (3.4-5.0) gm/dl Globulin (2.5-4.0) gm/dl Albumin/Globulin Ratio (0.9-2) Procalcitonin TSH Free T4 (0.61-1.60) ng/dl Urine Color Urine Appearance (Clear) Urine pH (4.5-7.5) Ur Specific Wheeling (1.000-1.030) Urine Protein (Negative) Urine Glucose (UA) (Negative) Urine Ketones (Negative) Urine Blood (Negative) Urine Nitrite (Negative) Urine Bilirubin (Negative) Urine Urobilinogen (Negative) Ur Leukocyte Esterase (Negative) SARS-CoV-2, RNA, NAAT (NEGATIVE) Administered Medications Discontinued Medications Ceftriaxone Sodium (Rocephin) 1,000 mg in 50 mls @ 100 mls/hr IV NOW STA Stop: 01/20/22 00:31 Last Infusion: 01/20/22 00:44 Dose: 0 mls/hr Documented by: [id number] Admin: 01/20/22 00:15 Dose: 100 mls/hr Documented by: [id number] Imaging Data Attestation: I personally reviewed and interpreted this imaging study as follows: My Impression: 1 view chest x-ray was obtained in the emergency department. My interpretation is cardiomegaly with elevation of the left hemidiaphragm. There is no definite infiltrate. There is no acute disease noted. This was compared to a chest x- ray from May 172020. No changes were noted. Radiologist's Impression: Patient: JR DIAZ (Female) : 52 Status: ER Date: 01/19/22 23:23 Room #: History: [facility] Slices: 66 Priors: Tech: Luiz Dillard @ [phone] Exams: CT HEAD Contrast: Accession Numbers: [id number] Referring Physician: REFERRED SELF Preliminary Findings Only See Final Report For Complete Findings CT HEAD: Comparison: CT head 05/15/21 No skull fracture. Sinuses and mastoid air cells are clear. Enlarged ventricles, unchanged. Findings could reflect normal pressure hydrocephalus or central greater than cortical cerebral volume loss. Chronic left parietal lobe infarct. Jorge-white matter differentiation otherwise maintained. No acute intracranial hemorrhage. Radiologist: Antonio Guevara M.D. Study ready at 23:30 and initial results transmitted at 23:44 Discharge Plan Visit Data Chief Complaint: Stroke/CVA Symptoms Stated Complaint: TIA SYMPTOMS, SLURRED SPEECH ED Provider: Theo Strickland Discharge Problem: Hypothermia, Acute alteration in mental status Patient Disposition: Being Evaluated by Hospitalist Forms Stand Alone Forms: My [facility] Prescriptions Prescriptions: No Action Santyl 250 unit/gram ointment 1 applic topical DAILY 14 Days Qty: 90 RF: 1 cefdinir 300 mg capsule 300 mg PO BID Qty: 28 RF: 0 pantoprazole 40 mg tablet,delayed release (DR/EC) 40 mg PO DAILY RF: 0 albuterol sulfate 90 mcg/actuation HFA aerosol inhaler 2 puff Inhalation DIRECTED PRN (Reason: Shortness Of Breath Or Wheezing) RF: 0 (DME) Oxygen Home Liters Per Minute See Rx Instructions .ROUTE .MEDSUPPLY Qty: 1 RF: 0 atorvastatin 40 mg Tablet 40 mg PO QAM Qty: 30 RF: 2 amlodipine [Norvasc] 5 mg Tablet 5 mg PO QAM Qty: 30 RF: 2 aspirin 81 mg Tablet,Delayed Release (Dr/Ec) 81 mg PO QAM Qty: 90 RF: 3 amoxicillin 500 mg capsule 500 mg PO TID RF: 0 Referrals Referrals: Bobbi Samuels CRNP [Outside Practitioners] -
[2022-01-19 22:56] LABS: Basophils # (auto) 0.01 K/uL (0-0.2); Basophils % (auto) 0.1 %; Eosinophils # (auto) 0.41 K/uL (0-0.5); Eosinophils % (auto) 5.7 %; Hematocrit (blood only) 37.3 % (37-47); Immature Granulocytes # (auto) 0.01 K/uL (0.00-0.02); Immature Granulocytes % (auto) 0.1 %; Lymphocytes # (auto) 1.22 K/uL (1.2-3.4); Lymphocytes % (auto) 17.1 %; Mean Corpuscular Hemoglobin 28.8 pg (25-34); Mean Corpuscular Hgb Conc 32.2 g/dL (32-36); Mean Corpuscular Volume 89.7 fL (80-100); Mean Platelet Volume 11.3 fL (7.4-10.4); Monocytes # (auto) 0.33 K/uL (0.11-0.59); Monocytes % (auto) 4.6 %; Neutrophils # (auto) 5.16 K/uL (1.4-6.5); Neutrophils % (auto) 72.4 %; Platelet Count 178 K/uL (130-400); RDW Coefficient of Variation 16.9 % (11.5-14.5); RDW Standard Deviation 54.8 fL (36.4-46.3); Red Blood Count 4.16 M/uL (4.2-5.4); White Blood Count 7.14 K/uL (4.8-10.8)
[2022-01-19 23:04] LABS: INR 1.1 (0.9-1.1); Partial Thromboplastin Time 28.1 Seconds (21.0-31.0); Prothrombin Time 11.4 Seconds (9.0-12.0)
[2022-01-19 23:35] LABS: Alanine Aminotransferase 114 U/L (7-52); Albumin Globulin Ratio 1.1 (0.9-2); Albumin Level 4.1 gm/dl (3.4-5.0); Alkaline Phosphatase 133 U/L (34-104); Anion Gap 10 (3-11); BUN Creatinine Ratio 58.6 (10-20); Bilirubin,Total 0.6 mg/dl (0.2-1.0); Blood Urea Nitrogen 41 mg/dl (6-23); Calcium 10.5 mg/dl (8.5-10.1); Carbon Dioxide 27 mmol/L (21-32); Chloride 101 mmol/L (98-107); Est GFR (African American) 101.7 ml/min; Est GFR (Non-African American) 87.8 ml/min; Globulin 3.7 gm/dl (2.5-4.0); Glucose 115 mg/dl (70-99(Fasting)); Sodium 138 mmol/L (136-145); Total Protein 7.8 gm/dl (6.0-8.3)
[2022-01-19 23:35] LABS: Appearance Urine Clear (Clear); Bilirubin Urine Negative (Negative); Blood Urine Negative (Negative); Color Urine Yellow; Glucose Urine UA Negative (Negative); Ketones Urine Negative (Negative); Leukocyte Esterase Urine Negative (Negative); Nitrite Urine Negative (Negative); Protein Urine Negative (Negative); Specific Gravity Urine 1.018 (1.000-1.030); Urobilinogen Urine Negative (Negative)
[2022-01-19 23:36] LABS: Troponin I < 0.03 ng/ml (0-0.04)
[2022-01-20] MEDS ORDERED: cefTRIAXone SODIUM 1,000 MG/50 ML BAG IV STA (00:02)
[2022-01-20 00:23] LABS: Potassium 4.1 mmol/L (3.5-5.1)
--- NOTE | 2022-01-20 00:31 | History & Physical Report ---
Date of Service January 20, 2022 Assessment & Plan (1) Hypothermia: Plan: Minerva Arreguin is a 71yo female with PMHx significant for CAD, CHF (unknown which type, EF 55-60% in 04/2021), h/o CVA, h/o DVT, stage III pressure ulcer of left heel, h/o osteomyelitis, and HTN who was brought in to [facility] ED on 01/19 by due to concern for stroke; found to be hypothermic. Hypothermia T36.0C earlier on 01/19, down to 31.8 on arrival in ED, slightly improved to 32.2C after 1-2 hours with warming blanket. Suspect hypothermia is due to prolonged time outside in freezing winter weather earlier in the day. Although there was initial concern for sepsis, patient does not have any respiratory, GI, or urinary symptoms, and although she has a pressure ulcer on left knee this was checked earlier today at her wound care visit without concern for infection (and no s/s cellulitis/skin infection here). No source for sepsis at this time, and I have low suspicion for it. - received CTX x1 in the ED - will not continue abx at this time - blood cx taken - pending - Although patient's was concerned for CVA, patient does not have dysarthria or altered mental status, and her current RUE weakness is chronic 2/2 to previous CVA. Additionally, hypothermia would be an extremely atypical solitary finding in CVA - CT head negative for acute process; will defer further imaging evaluation at this time given low suspicion for CVA - continue heating blanket as this seems to be helping - no indication for central/peripheral invasive heating at this time Transaminitis ALT 114, AST 83, ALP 133. Previously WNL in 04/2021. Unclear etiology at this point in time. - repeat in AM - consider RUQ US for further evaluation if remain elevated in AM Subclinical Hypothyroidism TSH 10.727, FT4 1.1, no previous h/o hypothyroidism. Hypothermia much better explained by cold weather exposure as stated above. - consider trending this in several weeks - defer to PCP HTN/HLD/GERD - continue home meds FEN/GI: regular diet, LR @80cc/hr DVT Prophylaxis: Lovenox 40mg SQ Q12H Code Status: full code Disposition: med/surg with tele (2) Stage III pressure ulcer: (3) Acute CHF (congestive heart failure): (4) Hypertension: History of Present Illness Chief Complaint: stroke-like symptoms Primary Care Provider: Fartun Frank PA-C Minerva Arreguin is a 71yo female with PMHx significant for CAD, CHF (unknown which type, EF 55-60% in 04/2021), h/o CVA, h/o DVT, stage III pressure ulcer of left heel, h/o osteomyelitis, and HTN who was brought in to [facility] ED on 01/19 by due to 's concern of lethargy/weakness and slurred speech since 01/19 in the morning, with concern for stroke. Reportedly had similar symptoms last summer when she had previous stroke. I spoke with the patient; the patient's was not present when I arrived to speak with her. The patient denies slurred speech and reports that she does not think she feels any different than her regular baseline, which includes chronic RUE weakness since previous stroke. Denies focal weakness/numbness. She does endorse feeling cold with chills, but has only felt this way since going outside. She reports that she drove her wheelchair more than 1/2 mile outside, from her house to [facility] and back, several hours before presenting to the ED. In the ED the patient was hypothermic at 31.8C; otherwise hemodynamically stable on room air. CBC/PT/PTT/INR all WNL. BUN 40 and Cr 0.7. BMP otherwise WNL. BSG 110. ALT 114, AST 83, ALP 133 (LFTs normal in 04/2021). Troponin negative x1. Procalcitonin negative. TSH 10.727 (was 2.46 in 04/2021) and FT4 1.1. UA negative for signs of infection. Blood cx pending. Left knee wound cx pending. CT head without acute intracranial process, although shows chronic hydrocephalus. CXR without acute cardiopulmonary process. Patient was given a warming blanket for hypothermia. Received CTX 1g IV x1 for empiric coverage due to concern for sepsis. Allergies Allergy/AdvReac Type Severity Reaction Status Date / Time nalidixic acid Allergy Unknown Unknown Verified 01/19/22 23:54 Home Medications Medication Instructions Recorded Confirmed Type albuterol sulfate 90 mcg/actuation 2 puff INHALATION DIRECTED PRN 09/21/18 01/19/22 History aerosol inhaler Oxygen Home #1 ea 05/21/21 10/20/21 Rx amlodipine 5 mg tablet (Norvasc) 5 mg PO QAM #30 tab 05/21/21 01/19/22 Rx aspirin 81 mg tablet,delayed 81 mg PO QAM #90 tab 05/21/21 01/19/22 Rx release atorvastatin 40 mg tablet 40 mg PO QAM #30 tab 05/21/21 01/19/22 Rx pantoprazole 40 mg tablet,delayed 40 mg PO DAILY 10/20/21 01/19/22 History release collagenase clostridium histo. 250 1 applic TOPICAL DAILY 14 Days #90 01/04/22 01/19/22 Rx unit/gram topical ointment (Santyl) g cefdinir 300 mg capsule 300 mg PO BID #28 cap 01/07/22 01/19/22 Rx amoxicillin 500 mg capsule 500 mg PO TID 01/19/22 01/19/22 History Past Med/Surg History Medical History Acute CHF (congestive heart failure) Acute [id number]-aoniswzjj myocardial infarction Cellulitis Hiatal hernia Hypertension Lymphedema of both lower extremities Meningitis spinal Neurogenic bladder (06/21/13) Paraplegia (06/21/13) Spina bifida (06/21/13) Takotsubo cardiomyopathy Surgical History H/O bone graft H/O section Hx of cholecystectomy Family History Father Hypertension Myocardial infarction Herniated disc Mother Myocardial infarction Colorectal cancer Uterine cancer Other Family history non-contributory Social History Smoking Status: Never smoker Second Hand Exposure: No; Do You Dip or Chew Tobacco: No; Tobacco Cessation Education Requested by Patient: No Hx Alcohol Use: No Hx Substance Use: No Preferred Language: Ukrainian Communication Ability: Effective Visual Impairment: Limited Hearing Ability: Normal Medication Aid Required: No Beliefs That Will Affect Care: None marital status: Current Living Situation: Spouse current occupational status: retired How many Children do You have: 2 Other Information That Helps Us Care for You: No Feels Safe at Home: Yes Safety Concerns: Feels Safe At This Time caffeine: Yes (tea) during the past year weight has: increased > 10 lbs Physical Activity Frequency: Does not Exercise Do you think of yourself as: straight/heterosexual Gender Identity: Female Assistive Devices: Walker and Wheelchair Review of Systems Review of Systems: All systems reviewed & are unremarkable except as noted in HPI & below Physical Exam Physical Exam: General: A&Ox3. NAD. Cooperative. HEENT: Atraumatic, normocephalic. Pulm: CTAB A&P. -wheezes, -rales, -rhonchi. Symmetrical chest rise. No increase work of breathing. No respiratory distress. Cardiac: RRR, -mrg. Radial pulses intact and symmetrical. Abdominal: soft, non-tender, non-distended, BS x 4 Extremities: bilateral BKAs appreciated. Left knee with overlying dressing c/d/i. No surrounding redness/warmth/tenderness. No drainage appreciated. Neurologic: PERRL, EOMI, accommodation nl, no face palsy, no dysarthria + focal motor deficit (weakness and decreased sensation in right upper extremity - chronic) Speech / Cognition: normal speech Coordination: normal [id number] test Results & Data Results & Data ([facility]) Vital Signs (Past 12 Hours) Vital Signs Temp Pulse Pulse Resp BP BP Pulse Ox 01/20/22 00:00 19 98 01/19/22 23:41 18 99 01/19/22 23:39 69 18 99 01/19/22 23:01 78 18 108/68 99 01/19/22 23:00 69 18 92 01/19/22 22:46 68 19 92 01/19/22 22:31 31.8 C L 69 19 93 01/19/22 21:58 66 18 141/70 H 97 Code Status & VTE Plan Code Status full code Supervising Physician Co-Signing Physician Notes Attending addendum: I have physically seen this patient, have supervised the medical residents activities, and agree with the H&P unless as otherwise noted. Assessment and Plan: Hypothermia- Initial core temperature 31.8 Repeat serially per protocol with continued use of David hugger Follow urine cultures and blood cultures Contributing factors include exposure to cold weather and hypothyroidism Hypothyroidism- TSH 10.77 upon admission Free T4 1.1 May need to consider treatment if hypothermia persists despite proper interventions otherwise Transaminitis- ALT 114, AST 83, alk phos 133 Repeat laboratories in a.m., and if persistently elevated, add imaging and acute hepatitis profile Remaining orders and notations as noted Resident Activity Tracking Resident Involvement: Resident Care Provided Care Provided: Adult Hospital Medicine (1) Hypothermia Encounter type: initial encounter Qualified Code(s): T68.XXXA - Hypothermia, initial encounter
[2022-01-20 01:07] LABS: Thyroid Stimulating Hormone 10.727 uIu/ml (0.300-4.500)
[2022-01-20 01:56] LABS: T4 Free Thyroxine 1.1 ng/dl (0.61-1.60)
[2022-01-20] MEDS ORDERED: LACTATED RINGER'S 1,000 ML IV SCH (02:45)
[2022-01-20] MEDS ORDERED: ACETAMINOPHEN 325 MG TAB PO PRN (05:50)
--- NOTE | 2022-01-20 07:19 | CT Scan Report ---
CT head/brain wo con CLINICAL HISTORY: AMS Technique: Contiguous axial CT images of the head were acquired from the base of the skull to the elizabeth miriam without intravenous contrast administration. Images were viewed in brain, subdural and bone [facility]. Automated dose lowering techniques and/or adjustment according to patient size were utilized for this exam. Comparison: Comparison is made to CT head 05/15/2021 Findings: Redemonstration of enlarged ventricles out of proportion to sulcal enlargement. Chronic parietal infa rct is seen on the left. Imaged portions of the paranasal sinuses and mastoid air cells are clear. The orbits appear normal. There are no acute fractures of the calvaria or scalp swelling. Impression: Moderate hydronephrosis is again seen. ACT 112: Negative or not required by law. Electronically signed by: Ever Hunter M.D. 01/20/2022 7:18 AM
--- NOTE | 2022-01-20 07:49 | XRay Report ---
XR chest 1V portable CLINICAL HISTORY: SEPSIS. COMPARISON STUDY: 05/17/2021 TECHNIQUE: 1 view of the chest FINDINGS: Single frontal view of the chest demonstrates the heart size to be mildly enlarged. There is a decrea sed inspiratory effort with elevation of the hemidiaphragms and crowding of the bronchovascular romy ngs at the lung bases and centrally. The lungs are clear of alveolar opacities. There is no evidence for pleural effusion. There is no evidence for vascular congestion. There is no acute osseous patholo gy. IMPRESSION: 1. There is a decreased inspiratory effort with otherwise no acute chest disease. ACT 112: Negative or not required by law. Electronically signed by: Conrad Rollins M.D. 01/20/2022 7:47 AM
[2022-01-20] MEDS ORDERED: MICONAZOLE NITRATE POWDER 43 GM EXT PRN (08:20)
[2022-01-20] MEDS: ASPIRIN 81 MG ECTAB PO SCH (08:56)
[2022-01-20] MEDS: amLODIPine BESYLATE 5 MG TAB PO SCH (08:56)
[2022-01-20] MEDS: PANTOprazole 40 MG TAB PO SCH (08:57)
[2022-01-20] MEDS: ENOXAPARIN INJ 40 MG/0.4 ML SYR SQ SCH ×2 (08:58→20:33)
[2022-01-20] MEDS ORDERED: ATORVASTATIN 40 MG TAB PO SCH (09:00)
[2022-01-20 09:50] LABS: Basophils # (auto) 0.01 K/uL (0-0.2); Basophils % (auto) 0.2 %; Eosinophils # (auto) 0.37 K/uL (0-0.5); Hematocrit (blood only) 29.8 % (37-47); Hemoglobin 9.7 g/dL (12.0-16.0); Immature Granulocytes # (auto) 0.01 K/uL (0.00-0.02); Immature Granulocytes % (auto) 0.2 %; Lymphocytes # (auto) 0.28 K/uL (1.2-3.4); Lymphocytes % (auto) 4.6 %; Mean Corpuscular Hemoglobin 29.1 pg (25-34); Mean Corpuscular Hgb Conc 32.6 g/dL (32-36); Mean Corpuscular Volume 89.5 fL (80-100); Mean Platelet Volume 11.5 fL (7.4-10.4); Monocytes # (auto) 0.21 K/uL (0.11-0.59); Monocytes % (auto) 3.4 %; Neutrophils # (auto) 5.24 K/uL (1.4-6.5); Neutrophils % (auto) 85.6 %; Platelet Count 134 K/uL (130-400); RDW Coefficient of Variation 16.4 % (11.5-14.5); RDW Standard Deviation 52.7 fL (36.4-46.3); Red Blood Count 3.33 M/uL (4.2-5.4); White Blood Count 6.12 K/uL (4.8-10.8)
[2022-01-20 10:18] LABS: Albumin Globulin Ratio 1.2 (0.9-2); Albumin Level 3.2 gm/dl (3.4-5.0); BUN Creatinine Ratio 60.3 (10-20); Bilirubin,Total 0.9 mg/dl (0.2-1.0); Calcium 8.8 mg/dl (8.5-10.1); Creatinine Clr Calc Pharmacy 84.9 ml/min; Est GFR (African American) 105.3 ml/min; Est GFR (Non-African American) 90.9 ml/min; Globulin 2.6 gm/dl (2.5-4.0); Magnesium 1.8 mg/dl (1.7-2.4); Phosphorus 3.8 mg/dl (2.5-4.9); Potassium 4.3 mmol/L (3.5-5.1); Total Protein 5.8 gm/dl (6.0-8.3)
--- NOTE | 2022-01-20 16:22 | Electrocardiogram Report ---
Test Reason : Blood Pressure : / mmHG Vent. Rate : 064 BPM Atrial Rate : 064 BPM P-R Int : 144 ms QRS Dur : 082 ms QT Int : 418 ms P-R-T Axes : 055 065 102 degrees QTc Int : 431 ms Poor data quality, interpretation may be adversely affected Normal sinus rhythm Nonspecific T wave abnormality Abnormal ECG When compared with ECG of 15-MAY-2021 12:02, Vent. rate has decreased BY 41 BPM QT has shortened Confirmed by Theo Roberts ([id number]) on 01/20/2022 4:22:19 PM Referred By: REFERRED SELF Confirmed By:Theo Roberts
[2022-01-20] MEDS ORDERED: Nursing to Pharmacy Communication SCH (16:30)
--- NOTE | 2022-01-20 17:37 | History & Physical Bridge Note ---
Date of Service January 20, 2022 History & Physical Bridge Note I have examined the patient, reviewed the History & Physical and in the interval since the performance of the History & Physical I have noted the following changes of clinical significance: Pt feeling very tired, but temp finally normalized after being on warming blanket through the night. SHe is eating food. Reports she had been on cefdinir and amox for the last 2 weeks through the wound care clinic and was having issues with N/V. No diarrhea, no abd pain. Currently no CP or SOB. Chart reviewed Wound cx from 01/04 with Pseudomonas and Enterococcus Wound cx from this admission now growing GNR BCxs pending Hgb dropped to 9.8, suspect hemodilutional LFTs trending downward Of note, patient does NOT have BKAs as per H&P, but has congenital spina bifida and has shortened and deformed lower extremities with lymphedema. Left posterior knee with 1.5cm wound open with yellow exudate, minimal surrounding erythema RRR no mgr CTAB no wcr Abd +BS soft NT ND Skin otherwise with diffuse ichthyosis of legs 71 yo female with a h/o spina bifida and paralysis, HL. hypothyroidism, HTN, GERD, CVA, DVT, pressure ulcers, here with hypothermia. Suspect hypothermia likely from cold exposure, however there could be a component of sepsis here LFTs elevated too which could be side effect from previous po antibiotics. -she is now warmed up, vandana po -continue IVFs through this bag and then stop -start Cipro IV for likely Pseudomonas wound infection which was never adequately teated. She has been adequately treatd with 12 days of amox for the ENterococcus. follow blood cultures
[2022-01-20] MEDS: CIPROFLOXACIN / D5W 400 MG/200 ML BAG IV SCH (18:11)
--- NOTE | 2022-01-20 22:16 | Billing Data ---
Date of Service January 20, 2022 Coding Level of Care Code 46364 Initial Inpt Care Lvl 3
[2022-01-21] MEDS: CIPROFLOXACIN / D5W 400 MG/200 ML BAG IV SCH ×2 (04:51→17:29)
[2022-01-21 06:08] LABS: Eosinophils # (auto) 0.56 K/uL (0-0.5); Eosinophils % (auto) 10.9 %; Hematocrit (blood only) 26.3 % (37-47); Hemoglobin 8.4 g/dL (12.0-16.0); Immature Granulocytes # (auto) 0.01 K/uL (0.00-0.02); Immature Granulocytes % (auto) 0.2 %; Lymphocytes # (auto) 0.91 K/uL (1.2-3.4); Lymphocytes % (auto) 17.6 %; Mean Corpuscular Hemoglobin 29.1 pg (25-34); Mean Corpuscular Hgb Conc 31.9 g/dL (32-36); Mean Platelet Volume 11.9 fL (7.4-10.4); Monocytes # (auto) 0.39 K/uL (0.11-0.59); Monocytes % (auto) 7.6 %; Neutrophils # (auto) 3.29 K/uL (1.4-6.5); Neutrophils % (auto) 63.7 %; Platelet Count 125 K/uL (130-400); RDW Coefficient of Variation 17.2 % (11.5-14.5); Red Blood Count 2.89 M/uL (4.2-5.4); White Blood Count 5.16 K/uL (4.8-10.8)
[2022-01-21 06:49] LABS: Albumin Globulin Ratio 1.1 (0.9-2); Albumin Level 2.8 gm/dl (3.4-5.0); BUN Creatinine Ratio 51.7 (10-20); Bilirubin,Total 1.5 mg/dl (0.2-1.0); Calcium 8.8 mg/dl (8.5-10.1); Creatinine Clr Calc Pharmacy 89.2 ml/min; Est GFR (Non-African American) 92.4 ml/min; Globulin 2.5 gm/dl (2.5-4.0); Magnesium 1.8 mg/dl (1.7-2.4); Potassium 3.7 mmol/L (3.5-5.1); Total Protein 5.3 gm/dl (6.0-8.3)
[2022-01-21] MEDS: ENOXAPARIN INJ 40 MG/0.4 ML SYR SQ SCH ×2 (07:53→19:56)
[2022-01-21] MEDS: PANTOprazole 40 MG TAB PO SCH (07:54)
[2022-01-21] MEDS: amLODIPine BESYLATE 5 MG TAB PO SCH (07:54)
[2022-01-21] MEDS: ASPIRIN 81 MG ECTAB PO SCH (07:54)
--- NOTE | 2022-01-21 13:41 | Hospitalist Progress Note ---
Date of Service January 21, 2022 Assessment & Plan (1) Hypothermia: Plan: Minerva Arreguin is a 71yo female with PMHx significant for CAD, CHF (unknown which type, EF 55-60% in 04/2021), h/o CVA, h/o DVT, stage III pressure ulcer of left heel, h/o osteomyelitis, and HTN who was brought in to [facility] ED on 01/19 by due to concern for stroke; found to be hypothermic. Hypothermia 2/2 multifactorial, exposure with left lower extremity pseudomonal cellulitis - T36.0C earlier on 01/19, down to 31.8 on arrival in ED, slightly improved to 32.2C after 1-2 hours with warming blanket. - Suspect hypothermia is due to prolonged time outside in freezing winter weather earlier in the day. - WC positive as below - received CTX x1 in the ED discontinued - blood cx taken - pending - Although patient's was concerned for CVA, patient does not have dysarthria or altered mental status, and her current RUE weakness is chronic 2/2 to previous CVA. Additionally, hypothermia would be an extremely atypical solitary finding in CVA - CT head negative for acute process; will defer further imaging evaluation at this time given low suspicion for CVA - continue heating blanket as this seems to be helping - no indication for central/peripheral invasive heating at this time - Pseudomonas Cipro sensitive, continue antibiotics total course of 10 to 14 days. Patient clinically improving fatigued with transaminitis and increased bilirubin pending additional eval (2) Acute CHF (congestive heart failure): Plan: Continue aspirin Continue atorvastatin Reason well on room air at time of assessment, no additional diuresis indicated at this time (3) Hypertension: Plan: Continue amlodipine Continue aspirin Adequate blood pressure control today (4) Transaminitis: Plan: Transaminitis ALT 114, AST 83, ALP 133. Previously WNL in 04/2021. Unclear etiology at this point in time. -Downtrending, atorvastatin held ? Medication induced Liver ultrasound pending, history of cholecystectomy. T bili elevated today (5) Stage III pressure ulcer: (6) Subclinical hypothyroidism: Plan: Subclinical Hypothyroidism TSH 10.727, FT4 1.1, No previous h/o hypothyroidism. - consider trending this in several weeks - defer to PCP Plan: FEN/GI: regular diet DVT Prophylaxis: Lovenox 40mg SQ Q12H Code Status: full code Disposition: med/surg with tele Admission and Anticipated Discharge Date Admission Date: January 20, 2022 Subjective Seen at the bedside. Tired, but feels like she is improved compared to yesterday. Warmer today. No fever, chills, sweats overnight. Denies chest pain, chest pressure, shortness of breath, difficulty breathing, nausea, vomiting, diarrhea, constipation. Does not have sensation in her legs. Review of Systems Review of Systems: All systems reviewed & are unremarkable except as noted in Subjective Physical Exam Physical Exam: General: A&Ox3. NAD. Cooperative. HEENT: Atraumatic, normocephalic. Pulm: CTAB A&P. -wheezes, -rales, -rhonchi. Symmetrical chest rise. No increase in work of breathing. No respiratory distress. Cardiac: RRR, -mrg. Radial pulses intact and symmetrical. Abdominal: Nontender, nondistended, soft. BS present. 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 Diffuse ichthyosis, left lower extremity with dressing overlying wound with yellow and serosanguineous drainage on lateral aspect. Results & Data Results & Data ([facility]) Vital Signs (Past 12 Hours) Vital Signs Temp Pulse Resp BP Pulse Ox 01/21/22 11:00 36.4 C L 78 20 111/64 95 01/21/22 06:49 36.6 C 77 20 97/60 L 95 01/21/22 04:14 36.6 C 84 20 107/68 94 PG Care Time/CCT Total # of Minutes Spent Total Time Spent with Patient: Total time spent is greater than 50% in coordination of care (as documented) at patient's floor/unit and/or counseling patient: Coding Level of Care Code 50282 Subseq Hosp Care Lvl 2 Diagnoses Hypothermia T68.XXXA Encounter type: initial encounter Stage III pressure ulcer L89.93 Acute CHF (congestive heart failure) I50.9 Hypertension I10 Transaminitis R74.01 Subclinical hypothyroidism E03.8 (1) Hypothermia Encounter type: initial encounter Qualified Code(s): T68.XXXA - Hypothermia, initial encounter
[2022-01-22] MEDS: CIPROFLOXACIN / D5W 400 MG/200 ML BAG IV SCH ×2 (06:25→16:39)
--- NOTE | 2022-01-22 07:52 | Ultrasound Report ---
ABDOMINAL ULTRASOUND, RIGHT UPPER QUADRANT HISTORY: transaminitis, hx zach. COMPARISON: Abdomen and pelvis CT 05/20/2021. FINDINGS: Pancreas: Obscured by overlying bowel gas. Liver: 1 cm cyst at the left hepatic dome, unchanged. Partially visualized small right pleural effusi on is noted. Gallbladder: The gallbladder is surgically absent. CBD: 6 mm Right kidney: No hydronephrosis. IMPRESSION: 1. Prior cholecystectomy. 2. Normal caliber common bile duct. 3. Small right pleural effusion. ACT 112: Negative or not required by law. Electronically signed by: Joseph Sorensen M.D. 01/22/2022 7:50 AM
[2022-01-22 08:21] LABS: Basophils # (auto) 0.01 K/uL (0-0.2); Basophils % (auto) 0.2 %; Eosinophils # (auto) 0.63 K/uL (0-0.5); Eosinophils % (auto) 11.4 %; Hematocrit (blood only) 25.2 % (37-47); Hemoglobin 8.2 g/dL (12.0-16.0); Immature Granulocytes # (auto) 0.03 K/uL (0.00-0.02); Immature Granulocytes % (auto) 0.5 %; Lymphocytes # (auto) 1.63 K/uL (1.2-3.4); Lymphocytes % (auto) 29.5 %; Mean Corpuscular Hemoglobin 29.3 pg (25-34); Mean Corpuscular Hgb Conc 32.5 g/dL (32-36); Mean Platelet Volume 11.1 fL (7.4-10.4); Monocytes # (auto) 0.42 K/uL (0.11-0.59); Monocytes % (auto) 7.6 %; Neutrophils # (auto) 2.81 K/uL (1.4-6.5); Neutrophils % (auto) 50.8 %; Platelet Count 112 K/uL (130-400); RDW Coefficient of Variation 17.8 % (11.5-14.5); RDW Standard Deviation 58.1 fL (36.4-46.3); White Blood Count 5.53 K/uL (4.8-10.8)
[2022-01-22] MEDS: PANTOprazole 40 MG TAB PO SCH (08:32)
[2022-01-22] MEDS: ENOXAPARIN INJ 40 MG/0.4 ML SYR SQ SCH (08:32)
[2022-01-22] MEDS: ASPIRIN 81 MG ECTAB PO SCH (08:32)
[2022-01-22] MEDS: amLODIPine BESYLATE 5 MG TAB PO SCH (08:32)
[2022-01-22 08:45] LABS: Albumin Level 2.9 gm/dl (3.4-5.0); BUN Creatinine Ratio 54.3 (10-20); Bilirubin,Total 0.9 mg/dl (0.2-1.0); Calcium 8.1 mg/dl (8.5-10.1); Est GFR (African American) 116.8 ml/min; Est GFR (Non-African American) 100.8 ml/min; Globulin 2.9 gm/dl (2.5-4.0); Potassium 3.4 mmol/L (3.5-5.1); Total Protein 5.8 gm/dl (6.0-8.3)
--- NOTE | 2022-01-22 17:49 | Discharge Summary ---
Date of Service January 22, 2022 Admission HPI Per Admitting Provider Minerva Arreguin is a 71yo female with PMHx significant for CAD, CHF (unknown which type, EF 55-60% in 04/2021), h/o CVA, h/o DVT, stage III pressure ulcer of left heel, h/o osteomyelitis, and HTN who was brought in to [facility] ED on 01/19 by due to 's concern of lethargy/weakness and slurred speech since 01/19 in the morning, with concern for stroke. Reportedly had similar symptoms last summer when she had previous stroke. I spoke with the patient; the patient's was not present when I arrived to speak with her. The patient denies slurred speech and reports that she does not think she feels any different than her regular baseline, which includes chronic RUE weakness since previous stroke. Denies focal weakness/numbness. She does endorse feeling cold with chills, but has only felt this way since going outside. She reports that she drove her wheelchair more than 1/2 mile outside, from her house to [facility] and back, several hours before presenting to the ED. In the ED the patient was hypothermic at 31.8C; otherwise hemodynamically stable on room air. CBC/PT/PTT/INR all WNL. BUN 40 and Cr 0.7. BMP otherwise WNL. BSG 110. ALT 114, AST 83, ALP 133 (LFTs normal in 04/2021). Troponin negative x1. Procalcitonin negative. TSH 10.727 (was 2.46 in 04/2021) and FT4 1.1. UA negative for signs of infection. Blood cx pending. Left knee wound cx pending. CT head without acute intracranial process, although shows chronic hydrocephalus. CXR without acute cardiopulmonary process. Patient was given a warming blanket for hypothermia. Received CTX 1g IV x1 for empiric coverage due to concern for sepsis. Principal Diagnosis Hypothermia Left lower extremity pseudomonal cellulitis Discharge Exam General: A&Ox3. NAD. Cooperative. HEENT: Atraumatic, normocephalic. Pulm: CTAB A&P. -wheezes, -rales, -rhonchi. Symmetrical chest rise. No increase in work of breathing. No respiratory distress. Cardiac: RRR, -mrg. Radial pulses intact and symmetrical. Abdominal: Nontender, nondistended, soft. BS present. 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 Diffuse ichthyosis, left lower extremity with dressing overlying wound with yellow and serosanguineous drainage on lateral aspect Discharge Data Allergies Allergy/AdvReac Type Severity Reaction Status Date / Time nalidixic acid Allergy Unknown Unknown Verified 01/19/22 23:54 Consultations 01/20/22 00:11 ED Decision to Admit Stat Ordered Studies 01/19/22 22:27 CT head/brain wo con Urgent 01/21/22 13:41 US liver Routine Hospital Course (1) Hypothermia: Minerva Arreguin is a 71yo female with PMHx significant for CAD, CHF (unknown which type, EF 55-60% in 04/2021), h/o CVA, h/o DVT, stage III pressure ulcer of left heel, h/o osteomyelitis, and HTN who was brought in to [facility] ED on 01/19 by due to concern for stroke; found to be hypothermic. To do as outpatient: 1. Complete 10 additional days of ciprofloxacin 500 mg twice daily for pseudomonal cellulitis Cipro sensitive on wound culture 2. Routine follow-up to PCP 3. Atorvastatin held due to transaminitis which down trended and resolved with a normal liver ultrasound. This was resumed at discharge, patient should have a repeat LFT check within 10 days to ensure stability. 4. Patient with subclinical hypothyroidism during admission, consider trending and repeating in several weeks once clinically well Hypothermia 2/2 multifactorial, exposure with left lower extremity pseudomonal cellulitis - T36.0C earlier on 01/19, down to 31.8 on arrival in ED, slightly improved to 32.2C after 1-2 hours with warming blanket. - Suspect hypothermia is due to prolonged time outside in freezing winter weather earlier in the day. - WC positive as below - received CTX x1 in the ED discontinued - blood cx taken - pending - Although patient's was concerned for CVA, patient does not have dysarthria or altered mental status, and her current RUE weakness is chronic 2/2 to previous CVA. Additionally, hypothermia would be an extremely atypical solitary finding in CVA - CT head negative for acute process; will defer further imaging evaluation at this time given low suspicion for CVA Patient's hypotension did resolve with antibiotic treatment and rewarming, temperature normal at discharge - no indication for central/peripheral invasive heating - Pseudomonas Cipro sensitive, continue antibiotics total course of 10 to 14 day s. (2) Acute CHF (congestive heart failure): Continue aspirin Continue atorvastatin Saturating well on room air at time of assessment, no additional diuresis indicated at time spend day of discharge minutes including direct patient care, documentation, review of labs and images, and coordination of care. (3) Hypertension: Continue amlodipine Continue aspirin Adequate blood pressure control today (4) Transaminitis: Transaminitis ALT 114, AST 83, ALP 133. Previously WNL in 04/2021. Unclear etiology at this point in time. -Downtrended, atorvastatin held ? Medication induced Liver ultrasound obtained, no acute abnormalities with gallbladder surgically stent and normal caliber common bile duct. Bilirubin did downtrend, transaminases also down trended as noted above. Atorvastatin resumed on discharge recommend LFT recheck in 1 to 2 weeks. (5) Stage III pressure ulcer: (6) Subclinical hypothyroidism: Subclinical Hypothyroidism TSH 10.727, FT4 1.1, No previous h/o hypothyroidism. - consider trending this in several weeks - defer to PCP FEN/GI: regular diet DVT Prophylaxis: Lovenox 40mg SQ Q12H. No signs of DVT during admission Code Status: full code Total Time Total Time Spent Total Time Spent (In Minutes): Time spend day of discharge 35 minutes including direct patient care, documentation, review of labs and images, and coordination of care. Discharge Plan Discharge Items Patient Disposition: Home - Home Health Services Reason For Visit: HYPOTHERMIA Discharge Diagnosis: Hypothermia Left lower extremity cellulitis Activity: Resume your previous activity Non-emergency contact: Primary Care Provider Call non-emergency contact if: you have any medication questions, your symptoms worsen, your pain is not controlled and you have a fever Follow-up/Referrals: Fartun Frank PA-C [Primary Care Provider] - Diet: Regular Addtl Attending Provider Instructions: You are seen in the hospital for hypothermia with concern for sepsis. Your hypothermia was thought to be multifactorial from exposure to cold weather in addition to a left knee cellulitis which cultured positive for ciprofloxacin sensitive Pseudomonas aeruginosa. You are treated with antibiotics, and clinically improved to your baseline. You were seen by physical therapy on day of discharge who recommended rehab versus return home, you strongly preferred home and noted you were ambulating and transferring independently near your normal level of strength. You have been discharged on an antibiotic, ciprofloxacin. Please take ciprofloxacin 500 mg by mouth twice daily for 10 days for pseudomonal cellulitis of the left knee. You should have a follow-up to your PCP within 1 week to follow your progression. You are noted to have elevated liver enzymes on admission. This may have been due to poor perfusion in the setting of your presentation versus medication effect. A ultrasound was obtained which did not show any acute abnormalities, a normal caliber common bile duct, and your gallbladder is surgically absent from prior intervention. Your liver enzymes improved. Your atorvastatin was initially held as this can contribute to elevated liver enzymes, meaning that your liver enzymes improved this was continued on discharge. You should have a repeat liver enzyme check within 10 days to ensure stability, and discussed the results with your primary care physician. You should have a follow-up with your primary care physician within 1 to 2 weeks. This is being scheduled as above. If you do not receive a call to confirm your appointment within 48 hours, please contact their office directly at the number above. If you develop any new or worsening symptoms including fever, chills, sweats, chest pain, chest pressure, difficulty breathing, uncontrolled nausea/vomiting, rash, wheezing, passing out or nearly passing out, bleeding, black/bloody bowel movements, or other new or concerning symptoms please call your primary care physician, or call 911 for re-evaluation in the emergency department if you are very concerned. Pending Studies at Discharge: No Stand-Alone Forms: My [facility] [employer], Smoking Cessation Medications and DC Order Prescriptions: New ciprofloxacin HCl [Cipro] 500 mg tablet 500 mg PO Q12H 10 Days Qty: 20 RF: 0 Continued Santyl 250 unit/gram ointment 1 applic topical DAILY 14 Days Qty: 90 RF: 1 pantoprazole 40 mg tablet,delayed release (DR/EC) 40 mg PO DAILY RF: 0 albuterol sulfate 90 mcg/actuation HFA aerosol inhaler 2 puff Inhalation DIRECTED PRN (Reason: Shortness Of Breath Or Wheezing) RF: 0 (DME) Oxygen Home Liters Per Minute See Rx Instructions .ROUTE .MEDSUPPLY Qty: 1 RF: 0 atorvastatin 40 mg Tablet 40 mg PO QAM Qty: 30 RF: 2 amlodipine [Norvasc] 5 mg Tablet 5 mg PO QAM Qty: 30 RF: 2 aspirin 81 mg Tablet,Delayed Release (Dr/Ec) 81 mg PO QAM Qty: 90 RF: 3 Discontinued cefdinir 300 mg capsule 300 mg PO BID Qty: 28 RF: 0 amoxicillin 500 mg capsule 500 mg PO TID RF: 0 Discharge Orders: Discharge Order (Routine); Ordered 01/22/22 Ordered By: Gary Olmos Admission Data Admit Date/Time: 01/20/22 01:22 Attending Provider: Gary Olmos Admit Provider: Jonathan Ulrich Primary Care Provider: Fartun Frank Other Providers: Wisam Malin ; [facility] ; [facility] ; [facility] Other Interventions: Discharge Summary Assessment (RN) Last Done: 01/22/22 18:14 Coding Level of Care Code D/C DAY MANAGEMENT >30 MINS Diagnoses Hypothermia T68.XXXA Encounter type: initial encounter Acute CHF (congestive heart failure) I50.9 Hypertension I10 Transaminitis R74.01 Stage III pressure ulcer L89.93 Subclinical hypothyroidism E03.8
== END 2022-01-22 20:20 | disposition home health service (06) | DRG 901 ==
LOC: ED 21:57 → SUATTDRO 01-20 01:22 → 2N 01-20 01:22
DX: I89.0 Lymphedema, not elsewhere classified; Z79.82 Long term (current) use of aspirin; Z90.49 Acquired absence of other specified parts of digestive tract; Q05.9 Spina bifida, unspecified; Z86.73 Personal history of transient ischemic attack (TIA), and cerebral infarction without residual deficits; G82.20 Paraplegia, unspecified; I25.10 Atherosclerotic heart disease of native coronary artery without angina pectoris; K21.9 Gastro-esophageal reflux disease without esophagitis; G83.9 Paralytic syndrome, unspecified; T46.6X5A Adverse effect of antihyperlipidemic and antiarteriosclerotic drugs, initial encounter; T68.XXXA Hypothermia, initial encounter; Z86.718 Personal history of other venous thrombosis and embolism; E03.8 Other specified hypothyroidism; Z79.899 Other long term (current) drug therapy; I25.2 Old myocardial infarction; E78.5 Hyperlipidemia, unspecified; X31.XXXA Exposure to excessive natural cold, initial encounter; R74.01 Elevation of levels of liver transaminase levels; I11.0 Hypertensive heart disease with heart failure; B95.2 Enterococcus as the cause of diseases classified elsewhere; Z88.1 Allergy status to other antibiotic agents; L03.116 Cellulitis of left lower limb; I50.9 Heart failure, unspecified; L89.893 Pressure ulcer of other site, stage 3; B96.5 Pseudomonas (aeruginosa) (mallei) (pseudomallei) as the cause of diseases classified elsewhere

== ENCOUNTER 2022-10-18 09:28 | Inpatient (IN) ==
[2022-10-18] MEDS ORDERED: CEFEPIME 2,000 MG in SYRINGE 0 ML IV STA (10:07)
[2022-10-18] MEDS ORDERED: SODIUM CHLORIDE 0.9% 1000ML 1,000 ML IV ONE ×2 (10:14→11:37)
--- NOTE | 2022-10-18 10:14 | Emergency Department Note ---
Impression & Plan Hypothermia, Weakness, Ulcers of both lower extremities, Acute hypotension, Acute hypernatremia ED Provider Note NAME: JR DIAZ AGE: 72 SEX: F : 1950 ARRIVES VIA: Walk-In INFORMANT: Patient ED PROVIDER(S): Matthias Kenyon DO CHIEF COMPLAINT: weak and cold HPI: Patient is a 72-year-old female who presents the ER brought in by her . He notes that she has been very cold for the past 2 to 3 days. They have been unable to get her temperature. She denies any headache or change in vision. No chest pain or shortness of breath. No cough or congestion. No belly pain, nausea, vomiting, or diarrhea. No dysuria, urgency, or frequency. She notes she has wounds in her legs but she cannot feel them. Her has not looked at them recently. They follow with the wound care clinic. She has no feeling of her legs. ROS: See above HPI for pertinent positives & negatives. A total of 10 systems reviewed and were otherwise negative. PAST MEDICAL HISTORY:See Below PAST SURGICAL HISTORY:See Below FAMILY HISTORY:See Below SOCIAL HISTORY:See Below HOME MEDICATIONS:See Below ALLERGIES:See Below VITALS:See Below PHYSICAL EXAMINATION: GENERAL: Sitting up in bed, alert, chronically ill-appearing, disheveled EYE EXAM: normal conjunctiva. PERRL and EOM's grossly intact. OROPHARYNX: mucous membranes are moist NECK: supple, no nuchal rigidity, no adenopathy, non-tender LUNGS: Clear to auscultation. Normal chest wall mechanics HEART: no murmurs, S1 normal and S2 normal ABDOMEN: abdomen soft, non-tender, normo-active bowel sounds, no masses, no rebound or guarding. BACK: Back is symmetrical on inspection and there is no deformity, no midline tenderness, no CVA tenderness. SKIN: no rashes and no bruising UPPER EXTREMITIES: upper extremities are grossly normal. LOWER EXTREMITIES: Lymphedema in the bilateral lower extremities with 3 x 3 cm wound tracking down through the skin in the right lateral posterior thigh. Small amount of bleeding. 5 x 7 cm wound in the right posterior calf region. Bilateral legs with erythema. NEURO EXAM: Normal sensorium, cranial nerves II-XII grossly intact, normal speech, no gross weakness of arms. MEDICAL DECISION MAKING: Patient is a 72-year-old female who presents ER for weakness and feeling cold. IV was established blood work was obtained. Labs show mild leukopenia 4.6 thousand. Mild anemia 10.6. INR unremarkable. BMP with a sodium of 150. Lactate was normal. Mild transaminitis with LFTs in the 90s. TSH mildly elevated at 6.7. UA was clean. COVID was negative. She was covered with Dapto and cefepime due to the open wounds on the legs with mild surrounding erythema. I do favor this likely source. She is awake alert and talking. She has no ot her complaints at this time. Due to history of CHF patient was not given 30 cc/kg fluid bolus. Patient was admitted for further work-up. Patient did remain on the bear hugger throughout her stay in the ER. Blood pressures did improve from the 90s with IV hydration. Triage Nursing notes reviewed. Limited review of prior medical records performed Vital Signs: reviewed and remarkable for hypotension and hypothermic Differential diagnosis: Differential diagnosis includes etiologies such as sepsis, UTI, pneumonia, metabolic, electrolyte abnormalities, cardiac sources, intracerebral event, toxicologic, neurological, as well as others were entertained. ER treatment provided: See below Diagnostics interpreted by me: ECG: Poor baseline with sinus rhythm rate of 72 Normal axis No PVCs QTC 453 Cardiac Monitoring: An order was placed for continuous cardiac monitoring. The monitor shows a rate of 70 with sinus rhythm. Laboratory studies: As stated above and show below. Imaging studies: Chest x-ray with mild cardiomegaly. Consultation(s): Discussed with Dr. Akins for further evaluation Procedures: none Critical Care: I have personally spent 32 minutes of critical care time in the direct management of this patient. This includes bedside care, interpretation of diagnostic studies, and testing, discussion with consultants, patient, and family members, and other required patient management activities. This 32 minutes is in excess of all separately billable procedures. Past Med/Surg History Medical History Acute alteration in mental status Acute CHF (congestive heart failure) Acute [id number] myocardial infarction Cellulitis Heart failure Hiatal hernia Hypertension Hypothermia Lymphedema of both lower extremities Meningitis spinal Neurogenic bladder (06/21/13) Paraplegia (06/21/13) Spina bifida (06/21/13) Takotsubo cardiomyopathy Traumatic open wound of left lower leg Surgical History H/O bone graft H/O section Hx of cholecystectomy Family History Father Hypertension Myocardial infarction Herniated disc Mother Myocardial infarction Colorectal cancer Uterine cancer Other Family history non-contributory Social History Smoking Status: Never smoker Second Hand Exposure: No; Hx Alcohol Use: No Hx Substance Use: No Preferred Language: Yi Communication Ability: Effective Visual Impairment: Limited Hearing Ability: Normal 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 Beliefs That Will Affect Care: None marital status: Current Living Situation: Spouse current occupational status: retired How many Children do You have: 2 Feels Safe at Home: Yes caffeine: Yes (tea) during the past year weight has: increased > 10 lbs Physical Activity Frequency: Does not Exercise Do you think of yourself as: straight/heterosexual Gender Identity: Female Assistive Devices: Glasses and Scooter/Electric Scooter Allergies Allergies Allergy/AdvReac Type Severity Reaction Status Date / Time nalidixic acid Allergy Unknown Unknown Verified 09/30/22 13:05 Home Meds Home Medications Medication Instructions Recorded Confirmed albuterol sulfate 90 mcg/actuation 2 puff inhalation DIRECTED PRN 09/21/18 09/30/22 aerosol inhaler Shortness Of Breath Or Wheezing pantoprazole 40 mg tablet,delayed 40 mg PO DAILY 10/20/21 09/30/22 release Previous Rx's Medication Instructions Recorded Oxygen Home #1 ea 05/21/21 amlodipine 5 mg tablet (Norvasc) 5 mg PO QAM #30 tabs 05/21/21 aspirin 81 mg tablet,delayed 81 mg PO QAM #90 tabs 05/21/21 release atorvastatin 40 mg tablet 40 mg PO QAM #30 tabs 05/21/21 Results & Data (ED) Vital Signs Vital Signs - 24 hr 10/18/22 09:33 10/18/22 10:02 10/18/22 11:01 Temperature 34.1 C L 33.2 C L Temperature Source Rectal Curtis Cath ( Temp Sensing) Pulse Rate 74 Pulse Rate [Apical] 73 Pulse Rate from SpO2 Sensor Pulse Rhythm [Apical] Respiratory Rate 20 24 Respiratory Effort / Characteristics Non-Labored Non-Labored Respiratory Depth Normal Normal Blood Pressure 96/53 L Blood Pressure [Left Arm] Blood Pressure Mean 67 Blood Pressure Mean [Left Arm] Pulse Oximetry 96 Oxygen Delivery Method Room Air Sepsis Recent Fever Within 48 Hours No Sepsis New/Unexplained Change in Mental Status N/A Sepsis Action Taken by Nursing No Action Required 10/18/22 10:37 10/18/22 10:00 10/18/22 10:15 Temperature 32.1 C L Temperature Source Curtis Cath ( Temp Sensing) Pulse Rate 72 67 Pulse Rate [Apical] Pulse Rate from SpO2 Sensor Pulse Rhythm [Apical] Respiratory Rate 25 H 15 Respiratory Effort / Characteristics Respiratory Depth Blood Pressure Blood Pressure [Left Arm] Blood Pressure Mean Blood Pressure Mean [Left Arm] Pulse Oximetry Oxygen Delivery Method Sepsis Recent Fever Within 48 Hours Sepsis New/Unexplained Change in Mental Status Sepsis Action Taken by Nursing 10/18/22 10:23 10/18/22 10:23 10/18/22 10:30 Temperature Temperature Source Pulse Rate 64 68 Pulse Rate [Apical] Pulse Rate from SpO2 Sensor 64 68 Pulse Rhythm [Apical] Respiratory Rate 17 13 Respiratory Effort / Characteristics Respiratory Depth Blood Pressure 79/52 L Blood Pressure [Left Arm] Blood Pressure Mean 61 Blood Pressure Mean [Left Arm] Pulse Oximetry 97 98 Oxygen Delivery Method Sepsis Recent Fever Within 48 Hours Sepsis New/Unexplained Change in Mental Status Sepsis Action Taken by Nursing 10/18/22 10:41 10/18/22 10:41 10/18/22 10:45 Temperature Temperature Source Pulse Rate 62 59 L Pulse Rate [Apical] Pulse Rate from SpO2 Sensor 61 59 L Pulse Rhythm [Apical] Respiratory Rate 12 12 Respiratory Effort / Characteristics Respiratory Depth Blood Pressure 102/54 L Blood Pressure [Left Arm] Blood Pressure Mean 70 Blood Pressure Mean [Left Arm] Pulse Oximetry 95 96 Oxygen Delivery Method Sepsis Recent Fever Within 48 Hours Sepsis New/Unexplained Change in Mental Status Sepsis Action Taken by Nursing 10/18/22 11:00 10/18/22 11:00 10/18/22 11:31 Temperature 33.5 C L Temperature Source Curtis Cath ( Temp Sensing) Pulse Rate 68 Pulse Rate [Apical] 69 Pulse Rate from SpO2 Sensor 68 Pulse Rhythm [Apical] Regular Respiratory Rate 20 20 Respiratory Effort / Characteristics Non-Labored Spontaneous Respiratory Depth Normal Blood Pressure 105/59 L Blood Pressure [Left Arm] 93/51 L Blood Pressure Mean 74 Blood Pressure Mean [Left Arm] 65 Pulse Oximetry 96 98 Oxygen Delivery Method Room Air Sepsis Recent Fever Within 48 Hours Sepsis New/Unexplained Change in Mental Status Sepsis Action Taken by Nursing 10/18/22 11:30 10/18/22 11:30 Temperature Temperature Source Pulse Rate 66 Pulse Rate [Apical] Pulse Rate from SpO2 Sensor 65 Pulse Rhythm [Apical] Respiratory Rate 16 Respiratory Effort / Characteristics Respiratory Depth Blood Pressure 93/51 L Blood Pressure [Left Arm] Blood Pressure Mean 65 Blood Pressure Mean [Left Arm] Pulse Oximetry 95 Oxygen Delivery Method Sepsis Recent Fever Within 48 Hours Sepsis New/Unexplained Change in Mental Status Sepsis Action Taken by Nursing Laboratory Data Result diagrams: 10/18/22 10:16 10/18/22 10:16 Lab Results 10/18/22 10/18/22 10/18/22 Range/Units 10:16 10:16 10:16 WBC 4.62 L (4.8-10.8) K/ul RBC 3.65 L (3.93-5.22) M/uL Hgb 10.6 L (12.0-16.0) g/dl Hct 33.5 L (34.1-44.9) % MCV 91.8 (80.0-100.0) fL MCH 29.0 (25.0-34.0) pg MCHC 31.6 L (32.0-36.0) g/dL RDW Std Deviation 57.7 H (36.4-46.3) fL RDW Coeff of Deanna 17.7 H (11.5-14.5) % Plt Count 137 (130-400) K/uL MPV 11.9 (9.4-12.3) fL Immature Gran % (Auto) 0.0 % Neut % (Auto) 85.0 % Lymph % (Auto) 7.8 % [place] % (Auto) 4.8 % Eos % (Auto) 2.2 % Baso % (Auto) 0.2 % Neut # (Auto) 3.93 (1.4-6.5) K/uL Lymph # (Auto) 0.36 L (1.2-3.4) K/uL [place] # (Auto) 0.22 L (0.24-0.82) K/uL Eos # (Auto) 0.10 (0-0.50) K/uL Baso # (Auto) 0.01 (0-0.2) K/uL Immature Gran # (Auto) 0.00 (0.00-0.02) K/uL Toxic Granulation 1+ PT (9.0-12.0) Seconds INR (0.9-1.1) Sodium 150 H (136-145) mmol/L Potassium 4.1 (3.5-5.1) mmol/L Chloride 112 H (98-107) mmol/L Carbon Dioxide 32 (21-32) mmol/L Anion Gap 6 (3-11) BUN 32 H (6-23) mg/dl Creatinine 0.59 L (0.6-1.2) mg/dl Est Cr Clr Drug Dosing 90.3 ml/min Est GFR ( Amer) 106.9 ml/min Est GFR (Non-Af Amer) 92.2 ml/min BUN/Creatinine Ratio 54.2 H (10-20) Glucose 75 (70-99(Fasting)) mg/dl Lactate 0.9 (0.4-2.0) mmol/L Calcium 9.7 (8.5-10.1) mg/dl Magnesium 2.1 (1.7-2.4) mg/dl Total Bilirubin 0.6 (0.2-1.0) mg/dl Direct Bilirubin 0.1 (0-0.2) mg/dl AST 92 H (13-39) U/L ALT 94 H (7-52) U/L Alkaline Phosphatase 144 H (34-104) U/L Troponin I High Sens 8.1 (0-14) pg/ml Total Protein 7.0 (6.0-8.3) gm/dl Albumin 3.7 (3.4-5.0) gm/dl Procalcitonin (0-0.5) ng/ml TSH (0.300-4.500) uIu/ml Free T4 (0.61-1.60) ng/dl Urine Color Urine Appearance (Clear) Urine pH (4.5-7.5) Ur Specific [place] (1.000-1.030) Urine Protein (Negative) Urine Glucose (UA) (Negative) Urine Ketones (Negative) Urine Blood (Negative) Urine Nitrite (Negative) Urine Bilirubin (Negative) Urine Urobilinogen (Negative) Ur Leukocyte Esterase (Negative) 10/18/22 10/18/22 10/18/22 Range/Units 10:16 10:16 10:16 WBC (4.8-10.8) K/ul RBC (3.93-5.22) M/uL Hgb (12.0-16.0) g/dl Hct (34.1-44.9) % MCV (80.0-100.0) fL MCH (25.0-34.0) pg MCHC (32.0-36.0) g/dL RDW Std Deviation (36.4-46.3) fL RDW Coeff of Deanna (11.5-14.5) % Plt Count (130-400) K/uL MPV (9.4-12.3) fL Immature Gran % (Auto) % Neut % (Auto) % Lymph % (Auto) % [place] % (Auto) % Eos % (Auto) % Baso % (Auto) % Neut # (Auto) (1.4-6.5) K/uL Lymph # (Auto) (1.2-3.4) K/uL [place] # (Auto) (0.24-0.82) K/uL Eos # (Auto) (0-0.50) K/uL Baso # (Auto) (0-0.2) K/uL Immature Gran # (Auto) (0.00-0.02) K/uL Toxic Granulation PT 11.1 (9.0-12.0) Seconds INR 1.0 (0.9-1.1) Sodium (136-145) mmol/L Potassium (3.5-5.1) mmol/L Chloride (98-107) mmol/L Carbon Dioxide (21-32) mmol/L Anion Gap (3-11) BUN (6-23) mg/dl Creatinine (0.6-1.2) mg/dl Est Cr Clr Drug Dosing ml/min Est GFR ( Amer) ml/min Est GFR (Non-Af Amer) ml/min BUN/Creatinine Ratio (10-20) Glucose (70-99(Fasting)) mg/dl Lactate (0.4-2.0) mmol/L Calcium (8.5-10.1) mg/dl Magnesium (1.7-2.4) mg/dl Total Bilirubin (0.2-1.0) mg/dl Direct Bilirubin (0-0.2) mg/dl AST (13-39) U/L ALT (7-52) U/L Alkaline Phosphatase (34-104) U/L Troponin I High Sens (0-14) pg/ml Total Protein (6.0-8.3) gm/dl Albumin (3.4-5.0) gm/dl Procalcitonin < 0.05 (0-0.5) ng/ml TSH 6.765 H (0.300-4.500) uIu/ml Free T4 1.08 (0.61-1.60) ng/dl Urine Color Urine Appearance (Clear) Urine pH (4.5-7.5) Ur Specific [place] (1.000-1.030) Urine Protein (Negative) Urine Glucose (UA) (Negative) Urine Ketones (Negative) Urine Blood (Negative) Urine Nitrite (Negative) Urine Bilirubin (Negative) Urine Urobilinogen (Negative) Ur Leukocyte Esterase (Negative) 10/18/22 Range/Units 10:45 WBC (4.8-10.8) K/ul RBC (3.93-5.22) M/uL Hgb (12.0-16.0) g/dl Hct (34.1-44.9) % MCV (80.0-100.0) fL MCH (25.0-34.0) pg MCHC (32.0-36.0) g/dL RDW Std Deviation (36.4-46.3) fL RDW Coeff of Deanna (11.5-14.5) % Plt Count (130-400) K/uL MPV (9.4-12.3) fL Immature Gran % (Auto) % Neut % (Auto) % Lymph % (Auto) % [place] % (Auto) % Eos % (Auto) % Baso % (Auto) % Neut # (Auto) (1.4-6.5) K/uL Lymph # (Auto) (1.2-3.4) K/uL [place] # (Auto) (0.24-0.82) K/uL Eos # (Auto) (0-0.50) K/uL Baso # (Auto) (0-0.2) K/uL Immature Gran # (Auto) (0.00-0.02) K/uL Toxic Granulation PT (9.0-12.0) Seconds INR (0.9-1.1) Sodium (136-145) mmol/L Potassium (3.5-5.1) mmol/L Chloride (98-107) mmol/L Carbon Dioxide (21-32) mmol/L Anion Gap (3-11) BUN (6-23) mg/dl Creatinine (0.6-1.2) mg/dl Est Cr Clr Drug Dosing ml/min Est GFR ( Amer) ml/min Est GFR (Non-Af Amer) ml/min BUN/Creatinine Ratio (10-20) Glucose (70-99(Fasting)) mg/dl Lactate (0.4-2.0) mmol/L Calcium (8.5-10.1) mg/dl Magnesium (1.7-2.4) mg/dl Total Bilirubin (0.2-1.0) mg/dl Direct Bilirubin (0-0.2) mg/dl AST (13-39) U/L ALT (7-52) U/L Alkaline Phosphatase (34-104) U/L Troponin I High Sens (0-14) pg/ml Total Protein (6.0-8.3) gm/dl Albumin (3.4-5.0) gm/dl Procalcitonin (0-0.5) ng/ml TSH (0.300-4.500) uIu/ml Free T4 (0.61-1.60) ng/dl Urine Color Yellow Urine Appearance Clear (Clear) Urine pH 7.0 (4.5-7.5) Ur Specific [place] 1.016 (1.000-1.030) Urine Protein Negative (Negative) Urine Glucose (UA) Negative (Negative) Urine Ketones Negative (Negative) Urine Blood Negative (Negative) Urine Nitrite Negative (Negative) Urine Bilirubin Negative (Negative) Urine Urobilinogen Negative (Negative) Ur Leukocyte Esterase Negative (Negative) Administered Medications Daptomycin 275 mg/ Syringe 5.5 mls @ 2.75 mls/min IV Q24H [facility]; Protocol Stop: 10/20/22 10:14 Last Admin: 10/18/22 10:44 Dose: 2.75 mls/min Documented By: HS Discontinued Medications Sodium Chloride (Nss 1000ml) 1,000 mls @ 999 mls/hr IV .Q1H1M ONE Stop: 10/18/22 11:14 Last Infusion: 10/18/22 11:22 Dose: 0 mls/hr Documented By: Admin: 10/18/22 10:21 Dose: 999 mls/hr Documented By: HS Cefepime HCl (Maxipime) 20 mls @ 5 mls/min IV NOW STA; Protocol Stop: 10/18/22 10:40 Last Admin: 10/18/22 10:50 Dose: 5 mls/min Documented By: HS Sodium Chloride (Nss 1000ml) 1,000 mls @ 999 mls/hr IV .Q1H1M ONE Stop: 10/18/22 12:37 Last Infusion: 10/18/22 12:54 Dose: 0 mls/hr Documented By: Admin: 10/18/22 11:53 Dose: 999 mls/hr Documented By: HS Lactated Ringer's (Lr) 500 mls @ 999 mls/hr IV .Q31M ONE Stop: 10/18/22 12:22 Last Infusion: 10/18/22 12:34 Dose: 0 mls/hr Documented By: Admin: 10/18/22 12:03 Dose: 999 mls/hr Documented By: HS Imaging Data Radiologist's Impression: Chest X-Ray 10/18/22 10:07 SINGLE VIEW CHEST CLINICAL HISTORY: Sepsis. FINDINGS: An AP, portable, supine chest radiograph is compared to study dated 01/19/2022 and correlated with chest CT dated 05/20/2021. The examination is significantly degraded by portable technique and patient rotation. The heart is mildly enlarged. The pulmonary vasculature is noncontrast. Chronic interstitial thickening is similar to previous. Scarring/atelectasis is noted at the lung bases. The lungs and pleural spaces are otherwise clear. No pneumothorax is seen. The skeletal structures are osteopenic. The bony thorax is grossly intact. Arthritic changes noted in the shoulders. There is thoracolumbar scoliosis. IMPRESSION: Mild cardiomegaly with no acute cardiopulmonary abnormality. ACT 112: Negative or not required by law. Electronically signed by: Aaron Pandey M.D. 10/18/2022 10:31 AM Discharge Plan Visit Data Chief Complaint: Weakness Stated Complaint: WEAKNESS ED Provider: Matthias Kenyon Discharge Problem: Hypothermia, Weakness, Ulcers of both lower extremities, Acute hypotension, Acute hypernatremia Patient Disposition: Admitted As Inpatient Discharge Instructions Interventions: ED Discharge Assessment Last Done: 10/18/22 15:31
[2022-10-18] MEDS ORDERED: DAPTOmycin 275 MG in SYRINGE 0 ML IV SCH (10:15)
--- NOTE | 2022-10-18 10:32 | XRay Report ---
SINGLE VIEW CHEST CLINICAL HISTORY: Sepsis. FINDINGS: An AP, portable, supine chest radiograph is compared to study dated 01/19/2022 and correlated with chest CT dated 05/20/2021. The examination is significantly degraded by portable technique and p atient rotation. The heart is mildly enlarged. The pulmonary vasculature is noncontrast. Chronic int erstitial thickening is similar to previous. Scarring/atelectasis is noted at the lung bases. The yudelka gs and pleural spaces are otherwise clear. No pneumothorax is seen. The skeletal structures are osteo penic. The bony thorax is grossly intact. Arthritic changes noted in the shoulders. There is thoracol umbar scoliosis. IMPRESSION: Mild cardiomegaly with no acute cardiopulmonary abnormality. ACT 112: Negative or not required by law. Electronically signed by: Aaron Pandey M.D. 10/18/2022 10:31 AM
[2022-10-18 10:37] LABS: Hematocrit (blood only) 33.5 % (34.1-44.9); Hemoglobin 10.6 g/dl (12.0-16.0); Mean Corpuscular Hgb Conc 31.6 g/dL (32.0-36.0); Mean Corpuscular Volume 91.8 fL (80.0-100.0); Mean Platelet Volume 11.9 fL (9.4-12.3); Platelet Count 137 K/uL (130-400); RDW Coefficient of Variation 17.7 % (11.5-14.5); RDW Standard Deviation 57.7 fL (36.4-46.3); Red Blood Count 3.65 M/uL (3.93-5.22); White Blood Count 4.62 K/ul (4.8-10.8)
[2022-10-18] MEDS ORDERED: CEFEPIME 20 ML IV STA (10:37)
--- NOTE | 2022-10-18 10:51 | History & Physical Report ---
Date of Service October 18, 2022 Assessment & Plan (1) Wound infection: Plan: - Chronic stage 3 pressure wounds 2/2 wheelchair bound from spina bifida. - Increased redness in b/l LEs, L > R, patient has no sensation in legs at baseline. - Blood, wound cultures ordered. - Treat empirically with cefepime and daptomycin. - IVF resuscitation 30 mg/kg, received 1 L NS bolus in ED, will order additional 500 cc bolus with LRs on floor 120cc/hr. - Wound care consulted. (2) Hypothermia: Plan: - 34.1 C rectal temp on presentation to ED, placed on tomás hugger. - Suspect secondary response to wound infection, admit to PCU with tomás hugger, treatment for wound infection as above. (3) Stage III pressure ulcer: Plan: - Chronic, patient is wheelchair-bound due to congenital spina bifida. Sees wound care clinic frequently. - Left leg is with worsening erythema with some drainage from wound. - Wound care consulted on admission. - Nystatin ordered for what appears to be fungal dermatitis on breasts. (4) Elevated LFTs: Plan: - AST 92, ALT 94, alk phos 144. T bili normal. - Patient without any GI symptoms or history of liver disease. - Had similar elevations in January when she was admitted for hypothermia secondary to exposure and wound infection. GB u/s at that time did not show any acute abnormalities of the gallbladder, normal CBD. - We will hold her statin for now especially given she is on daptomycin for wound infection. - Trend while admitted. (5) Severe obstructive sleep apnea: Plan: - CPAP at night with 2 L NC. (6) Hypertension: Plan: - Holding amlodipine for hypotension. (7) History of CVA (cerebrovascular accident): Plan: - Left parietal CVA in 2020, continue aspirin 81 mg daily for secondary prevention. (8) Heart failure: Plan: - Documented history, unsure what kind. Not on any home diuretics. - Echo 2020: EF 55-60%. Mild LVH, no wma, left ventricular systolic function is normal. - Monitor volume status, strict I/Os. Curtis in place. Plan - Admit to PCU. - SCDs, Lovenox for VTE ppx. - Full Code. History of Present Illness Chief Complaint: chills, fatigue at home x one week Primary Care Provider: Fartun Frank PA-C Minerva Arreguin is a 72-year-old female with past medical history significant for congenital spina bifida with shortened, deformed lower extremities edema, CAD, CVA, heart failure, hypertension, and bilateral stage III pressure ulcers of left posterior knee, right posterior thigh, and right posterior knee is presenting today with chills at home. For the past week she has been cold, fatigued, and generally weak. They have not been able to get a temperature reading at home because it is not reading on him to monitor. 2 days ago her noticed she was a little bit more slow to answer questions and drifted off and thought, but no focal numbness/weakness, slurred speech or word finding difficulties. He has not been outside over the past week, he is not in their home. There are no sick contacts at home. She does have chronic wounds due to her congenital spina bifida, follows with wound clinic. Left leg has been more red over the past week, she has chronic drainage from her wounds with is unchanged. She is wheelchair-bound at baseline so offloading pressure to the wounds has been difficult. On presentation, she has a temperature recorded of 34.1 C (93.4 F) obtained rectally, BP 96/53, without tachycardia or hypoxia. Labs significant for WBC 4.62, Hgb 10.6, AST 92, ALT 94, alk phos 144. Blood cultures obtained in ED. CXR shows mild cardiomegaly with no acute cardiopulmonary abnormality. She was placed on a Tomás hugger around 11 AM, given a bolus of 1L NS, and start empirically on daptomycin and cefepime for presumed cellulitis/sepsis from her wounds. Allergies Allergy/AdvReac Type Severity Reaction Status Date / Time nalidixic acid Allergy Unknown Unknown Verified 09/30/22 13:05 Home Medications Medication Instructions Recorded Confirmed Type albuterol sulfate 90 mcg/actuation 2 puff inhalation DIRECTED PRN 09/21/18 09/30/22 History aerosol inhaler Shortness Of Breath Or Wheezing Oxygen Home #1 ea 05/21/21 09/30/22 Rx amlodipine 5 mg tablet (Norvasc) 5 mg PO QAM #30 tabs 05/21/21 09/30/22 Rx aspirin 81 mg tablet,delayed 81 mg PO QAM #90 tabs 05/21/21 09/30/22 Rx release atorvastatin 40 mg tablet 40 mg PO QAM #30 tabs 05/21/21 09/30/22 Rx pantoprazole 40 mg tablet,delayed 40 mg PO DAILY 10/20/21 09/30/22 History release Past Med/Surg History Medical History Acute alteration in mental status Acute CHF (congestive heart failure) Acute bsr-U[place]-pjhaqwilt myocardial infarction Cellulitis Heart failure Hiatal hernia Hypertension Hypothermia Lymphedema of both lower extremities Meningitis spinal Neurogenic bladder (06/21/13) Paraplegia (06/21/13) Spina bifida (06/21/13) Takotsubo cardiomyopathy Traumatic open wound of left lower leg Surgical History H/O bone graft H/O section Hx of cholecystectomy Family History Father Hypertension Myocardial infarction Herniated disc Mother Myocardial infarction Colorectal cancer Uterine cancer Other Family history non-contributory Social History Smoking Status: Never smoker Second Hand Exposure: No; Hx Alcohol Use: No Hx Substance Use: No Preferred Language: Welsh Communication Ability: Effective Visual Impairment: Limited Hearing Ability: Normal 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: No Beliefs That Will Affect Care: None marital status: Current Living Situation: Spouse current occupational status: retired How many Children do You have: 2 Feels Safe at Home: Yes caffeine: Yes (tea) during the past year weight has: increased > 10 lbs Physical Activity Frequency: Does not Exercise Do you think of yourself as: straight/heterosexual Gender Identity: Female Assistive Devices: Glasses and Scooter/Electric Scooter Review of Systems Review of Systems: Constitutional:chills, fatigue, general weakness x 1 week Eyes: No diplopia, no worsening or blurred vision ENT: normal hearing, no trouble swallowing Respiratory: No cough, sputum, dyspnea at rest or on exertion Cardiovascular: No chest pain, tightness or palpitations Abdomen: No pain, nausea, vomiting, diarrhea or constipation : Denies dysuria, hematuria, increased urgency/frequency, urinary retention Musculoskeletal: No joint pain, calf pain, swelling Neurologic: No weakness, numbness/tingling, or balance problems Psychiatric: No anxiety or depression Skin: b/l leg redness x one week Physical Exam Physical Exam: General: awake, alert, no apparent distress, sometimes slow to answer/trails off without finishing sentences, per not baseline but has been her baseline over past 3 days Head: Normocephalic, atraumatic ENT: PERRL, EOMI, no pharyngeal exudate, mucous membranes moist Chest: Clear to auscultation, on room air, no adventitious breath sounds Cardiac: Regular rate and rhythm, no murmur, no JVD, normal peripheral pulses, good capillary refill Abdominal: NABS x 4 quadrants, soft, nontender to palpation, no rebound, guarding or tenderness Extremities: b/l LE erythema with chronic wounds/skin changes c/w spina bifida; some worse erythema on LLE with increased drainage from wound Psych: Normal mood and affect Neuro: AAO x 3, in b/l UE 5/5; no use/strength/sensation in b/l LEs; no acute motor deficits, speech is clear, no peripheral sensory deficits Skin: no rash or erythema Results & Data Results & Data ([facility]) Vital Signs (Past 12 Hours) Vital Signs Temp Pulse Pulse Resp BP Pulse Ox O2 Del Method 10/18/22 10:02 34.1 C L 73 24 10/18/22 09:33 74 20 96/53 L 96 Room Air Laboratory Results Abnormal lab results 10/18/22 10/18/22 Range/Units 10:16 10:16 WBC 4.62 L (4.8-10.8) K/ul RBC 3.65 L (3.93-5.22) M/uL Hgb 10.6 L (12.0-16.0) g/dl Hct 33.5 L (34.1-44.9) % MCHC 31.6 L (32.0-36.0) g/dL RDW Std Deviation 57.7 H (36.4-46.3) fL RDW Coeff of Deanna 17.7 H (11.5-14.5) % Lymph # (Auto) 0.36 L (1.2-3.4) K/uL [place] # (Auto) 0.22 L (0.24-0.82) K/uL Sodium 150 H (136-145) mmol/L Chloride 112 H (98-107) mmol/L BUN 32 H (6-23) mg/dl Creatinine 0.59 L (0.6-1.2) mg/dl BUN/Creatinine Ratio 54.2 H (10-20) AST 92 H (13-39) U/L ALT 94 H (7-52) U/L Alkaline Phosphatase 144 H (34-104) U/L Diagnostic Findings Chest X-Ray 10/18/22 10:07 SINGLE VIEW CHEST CLINICAL HISTORY: Sepsis. FINDINGS: An AP, portable, supine chest radiograph is compared to study dated 01/19/2022 and correlated with chest CT dated 05/20/2021. The examination is significantly degraded by portable technique and patient rotation. The heart is mildly enlarged. The pulmonary vasculature is noncontrast. Chronic interstitial thickening is similar to previous. Scarring/atelectasis is noted at the lung bases. The lungs and pleural spaces are otherwise clear. No pneumothorax is seen. The skeletal structures are osteopenic. The bony thorax is grossly intact. Arthritic changes noted in the shoulders. There is thoracolumbar scoliosis. IMPRESSION: Mild cardiomegaly with no acute cardiopulmonary abnormality. ACT 112: Negative or not required by law. Electronically signed by: Aaron Pandey M.D. 10/18/2022 10:31 AM Code Status & VTE Plan Code Status Full Code. Supervising Physician Co-Signing Physician Notes Patient seen and examined, chart reviewed, case discussed with Jeanie Salinas and I agree with the assessment and plan as above except as otherwise noted Labs and images reviewed 72-year-old female with a past medical history of congenital spina bifida, CAD, CVA, hypertension, pressure ulcers who presents with an episode of hypothermia, hypotension, and fatigue with some concern for "spaciness "from her . At bedside she is awake, alert and answers questions appropriately, occasionally somnolent but arouses easily. She is nontoxic-appearing. She denies fever, chills, sweats but does report that she has felt cold for the last few days. She has no feeling in her legs, is not able to sense movement/pressure congenital deformity. On exam left lower extremity in the posterior popliteal fossa with asymmetric erythema, warmth and some scant purulence. Right lower extremity with chronic changes but no evidence of cellulitis. Right posterior distal thigh is with approximate 3 cm ulceration. Patient on mid chest overlying sternum with moist, erythematous skin and scattered satellite lesions.on back/sacrum survey congenital deformity with spina bifida tuft and some irritation without evidence of spreading erythema is present. RRR, breathing unlabored/clear. Suspect patient with hypothermia and fatigue in the setting of developing lower extremity cellulitis. Agree with antibiotics as above. Suspect fungal dermatitis of breast, nystatin ordered. Management of chronic issues above. Continue Tomás hugger as needed. PG Care Time/CCT Total # of Minutes Spent Total Time Spent with Patient: Total time spent is greater than 50% in coordination of care (as documented) at patient's floor/unit and/or counseling patient: Coding Level of Care Code 68608 Initial Inpt Care Lvl 3 Diagnoses Wound infection T14.8XXA; L08.9 Hypothermia T68.XXXA Stage III pressure ulcer L89.93 Elevated LFTs R79.89 Severe obstructive sleep apnea G47.33 Hypertension I10 History of CVA (cerebrovascular accident) Z86.73 Heart failure I50.9
[2022-10-18 10:55] LABS: Albumin Level 3.7 gm/dl (3.4-5.0); BUN Creatinine Ratio 54.2 (10-20); Bilirubin Direct 0.1 mg/dl (0-0.2); Bilirubin,Total 0.6 mg/dl (0.2-1.0); Calcium 9.7 mg/dl (8.5-10.1); Creatinine Clr Calc Pharmacy 90.3 ml/min; Est GFR (African American) 106.9 ml/min; Est GFR (Non-African American) 92.2 ml/min; Magnesium 2.1 mg/dl (1.7-2.4); Potassium 4.1 mmol/L (3.5-5.1)
[2022-10-18 10:57] LABS: Prothrombin Time 11.1 Seconds (9.0-12.0)
[2022-10-18 10:58] LABS: Troponin I High Sensitivity 8.1 pg/ml (0-14)
[2022-10-18 11:11] LABS: Basophils # (auto) 0.01 K/uL (0-0.2); Basophils % (auto) 0.2 %; Eosinophils % (auto) 2.2 %; Lymphocytes # (auto) 0.36 K/uL (1.2-3.4); Lymphocytes % (auto) 7.8 %; Monocytes # (auto) 0.22 K/uL (0.24-0.82); Monocytes % (auto) 4.8 %; Neutrophils # (auto) 3.93 K/uL (1.4-6.5); Toxic Granulation 1+
[2022-10-18 11:15] LABS: Appearance Urine Clear (Clear); Bilirubin Urine Negative (Negative); Blood Urine Negative (Negative); Color Urine Yellow; Glucose Urine UA Negative (Negative); Ketones Urine Negative (Negative); Leukocyte Esterase Urine Negative (Negative); Nitrite Urine Negative (Negative); Protein Urine Negative (Negative); Specific Gravity Urine 1.016 (1.000-1.030); Urobilinogen Urine Negative (Negative)
[2022-10-18] MEDS ORDERED: LACTATED RINGER'S 500 ML IV ONE (11:52)
[2022-10-18 12:30] LABS: Thyroid Stimulating Hormone 6.765 uIu/ml (0.300-4.500)
[2022-10-18 13:02] LABS: T4 Free Thyroxine 1.08 ng/dl (0.61-1.60)
[2022-10-18] MEDS ORDERED: ACETAMINOPHEN 325 MG TAB PO PRN (15:30)
[2022-10-18] MEDS ORDERED: ALUMINUM/MAGNESIUM SUSP 30 ML UDC PO PRN (15:30)
[2022-10-18] MEDS ORDERED: ALBUTEROL HFA 8 GM INHALER INH PRN (15:30)
[2022-10-18] MEDS ORDERED: CEFEPIME 1,000 MG in SYRINGE 0 ML IV SCH (15:30)
[2022-10-18] MEDS: ENOXAPARIN INJ 40 MG/0.4 ML SYR SQ SCH (18:15)
[2022-10-18] MEDS: LACTATED RINGER'S 1,000 ML IV SCH (18:19)
--- NOTE | 2022-10-18 19:34 | Electrocardiogram Report ---
Test Reason : Blood Pressure : / mmHG Vent. Rate : 072 BPM Atrial Rate : 072 BPM P-R Int : 128 ms QRS Dur : 082 ms QT Int : 414 ms P-R-T Axes : 095 048 110 degrees QTc Int : 453 ms Poor data quality, interpretation may be adversely affected Normal sinus rhythm When compared with ECG of 19-JAN-2022 22:20, No significant change was found Confirmed by Ramone Galeas ([id number]) on 10/18/2022 7:33:38 PM Referred By: REFERRED SELF Confirmed By:Will Galeas
[2022-10-18] MEDS ORDERED: CEFEPIME 2,000 MG/20 ML VIAL ONE (21:14)
[2022-10-18] MEDS: NYSTATIN POWDER 15GM BTL EXT SCH (21:17)
[2022-10-18] MEDS: CEFEPIME 2,000 MG in SYRINGE 0 ML IV SCH (21:20)
[2022-10-19] MEDS: LACTATED RINGER'S 1,000 ML IV SCH ×2 (00:08→09:22)
[2022-10-19] MEDS: CEFEPIME 2,000 MG in SYRINGE 0 ML IV SCH ×3 (03:52→20:33)
[2022-10-19 07:04] LABS: Albumin Globulin Ratio 1.1 (0.9-2); Albumin Level 2.8 gm/dl (3.4-5.0); BUN Creatinine Ratio 55.4 (10-20); Bilirubin,Total 0.6 mg/dl (0.2-1.0); Calcium 8.1 mg/dl (8.5-10.1); Creatinine Clr Calc Pharmacy 81.9 ml/min; Est GFR (African American) 103.5 ml/min; Est GFR (Non-African American) 89.3 ml/min; Globulin 2.6 gm/dl (2.5-4.0); Total Protein 5.4 gm/dl (6.0-8.3)
[2022-10-19 07:28] LABS: Hematocrit (blood only) 28.4 % (34.1-44.9); Mean Corpuscular Hemoglobin 28.8 pg (25.0-34.0); Mean Corpuscular Hgb Conc 31.7 g/dL (32.0-36.0); Mean Platelet Volume 11.9 fL (9.4-12.3); Platelet Count 90 K/uL (130-400); RDW Coefficient of Variation 17.9 % (11.5-14.5); RDW Standard Deviation 57.5 fL (36.4-46.3); Red Blood Count 3.12 M/uL (3.93-5.22); White Blood Count 2.71 K/ul (4.8-10.8)
[2022-10-19 08:15] LABS: Basophils # (auto) 0.01 K/uL (0-0.2); Basophils % (auto) 0.4 %; Echinocytes 1+; Eosinophils # (auto) 0.04 K/uL (0-0.50); Eosinophils % (auto) 1.5 %; Immature Granulocytes # (auto) 0.01 K/uL (0.00-0.02); Immature Granulocytes % (auto) 0.4 %; Lymphocytes # (auto) 0.21 K/uL (1.2-3.4); Lymphocytes % (auto) 7.7 %; Monocytes # (auto) 0.22 K/uL (0.24-0.82); Monocytes % (auto) 8.1 %; Neutrophils # (auto) 2.22 K/uL (1.4-6.5); Neutrophils % (auto) 81.9 %
[2022-10-19 08:18] LABS: Giant Platelets 1+
[2022-10-19] MEDS: NYSTATIN POWDER 15GM BTL EXT SCH ×2 (09:23→20:54)
[2022-10-19] MEDS ORDERED: SODIUM CHLORIDE 0.45 % 1,000 ML IV ONE (10:15)
[2022-10-19] MEDS: PANTOprazole 40 MG TAB PO SCH (10:38)
[2022-10-19] MEDS: ASPIRIN 81 MG ECTAB PO SCH (10:38)
[2022-10-19] MEDS: D5W AND 1/2NSS 1,000 ML IV SCH ×2 (13:18→22:17)
[2022-10-19] MEDS: DAPTOmycin 400 MG in SYRINGE 0 ML IV SCH (13:29)
--- NOTE | 2022-10-19 14:44 | Surgery Consultation ---
Date of Consultation October 19, 2022 Assessment & Plan (1) Ulcers of both lower extremities: This is a 72yF with a PMH of spina bifida who is wheel chair bound, CVA, CAD, pressure ulcers, who presents to the [facility] ED on 10/18/22 with complaints of feeling cold, unable to get a temperature, and general weakness. She has known lower extremity wounds of which she follows regularly in wound clinic for. Today we have been consulted for evaluation of wounds for possible debridement. The wounds were evaluated in conjunction with bag machine adjuster. She has two pressure ulcers wounds of the R LE, noted with slough and some necrotic tissue noted in the central portion of the inferior wound. The area of necrotic tissue was debrided at the bedside, about ~2cm. Both wounds were curetted without issue. Recommend daily santyl with dressing changes. Wounds currently do not require surgical debridement in the OR. She is being managed by hospitalists otherwise for her hypothermia, hypernatremia, and is on abx for infection control. We will sign off at this time. Call if any questions/concerns. Supervising Physician Co-Signing Physician Notes I personally saw and examined the patient with Ashlee Short PA-C and agree with the assessment and plan. 72-year-old female with decubitus ulcers Of the right lower extremity There is some eschar noted centrally within the wound This was debrided at bedside I Provided indirect supervision of the debridement by Ashlee Short PA-C We will start Santyl ointment daily to the wound bases There are no signs of acute infection and she may follow-up with the wound clinic upon discharge Surgery will sign off at this time, please call with any questions or concerns History of Present Illness Attending Physician: Júnior Hood MD History of Present Illness This is a 72yF with a PMH of spina bifida who is wheel chair bound, CVA, CAD, pressure ulcers, who presents to the [facility] ED on 10/18/22 with complaints of feeling cold, unable to get a temperature at home, and general weakness. She of note has multiple pressure ulcers from being wheel chair bound. Reports they have been present for months. She follows in the wound care center regularly. We have been consulted today for consideration of debridement of wounds. She denies any issues with them currently. She does not have sensation of her lower extremities. Allergies Allergy/AdvReac Type Severity Reaction Status Date / Time nalidixic acid Allergy Unknown Unknown Verified 09/30/22 13:05 Home Medications Medication Instructions Recorded Confirmed Type albuterol sulfate 90 mcg/actuation 2 puff inhalation DIRECTED PRN 09/21/18 09/30/22 History aerosol inhaler Shortness Of Breath Or Wheezing Oxygen Home #1 ea 05/21/21 09/30/22 Rx amlodipine 5 mg tablet (Norvasc) 5 mg PO QAM #30 tabs 05/21/21 09/30/22 Rx aspirin 81 mg tablet,delayed 81 mg PO QAM #90 tabs 05/21/21 09/30/22 Rx release atorvastatin 40 mg tablet 40 mg PO QAM #30 tabs 05/21/21 09/30/22 Rx pantoprazole 40 mg tablet,delayed 40 mg PO DAILY 10/20/21 09/30/22 History release Patient History Medical History Acute alteration in mental status Acute CHF (congestive heart failure) Acute soc-[place]-fcypcmlef myocardial infarction Cellulitis Heart failure Hiatal hernia Hypertension Hypothermia Lymphedema of both lower extremities Meningitis spinal Neurogenic bladder (06/21/13) Paraplegia (06/21/13) Spina bifida (06/21/13) Takotsubo cardiomyopathy Traumatic open wound of left lower leg Surgical History H/O bone graft H/O section Hx of cholecystectomy Family History Father Hypertension Myocardial infarction Herniated disc Mother Myocardial infarction Colorectal cancer Uterine cancer Other Family history non-contributory Social History Smoking Status: Never smoker Second Hand Exposure: No; Hx Alcohol Use: No Hx Substance Use: No Preferred Language: Serbian Communication Ability: Effective Visual Impairment: Limited Hearing Ability: Normal Coordinator Of Evaluation Required: No Beliefs That Will Affect Care: None marital status: Current Living Situation: Spouse current occupational status: retired How many Children do You have: 2 Feels Safe at Home: Yes Safety Concerns: Feels Safe At This Time caffeine: Yes (tea) during the past year weight has: increased > 10 lbs Physical Activity Frequency: Does not Exercise Do you think of yourself as: straight/heterosexual Gender Identity: Female Assistive Devices: Wheelchair Review of Systems Constitutional: + chills and + fatigue; no fever Respiratory: no dyspnea Cardiovascular: no chest pain Gastrointestinal: no abdominal pain Integumentary: 2 right lower extremity and 1 left lower extremity wound Physical Exam Physical Exam: awake/alert, no distress Gastrointestinal (Abdomen): Percussion/Palpation: abdomen soft Musculoskeletal: bilateral lower extremities noted with congenital deformity and shortened limbs. 2 right sided posterior lower extremity wounds noted, + slough, some necrotic tissue noted in the central portion of inferior wound Results & Data ([facility]) Vital Signs (Past 12 Hours) Vital Signs Temp Pulse Resp BP Pulse Ox O2 Del Method O2 Flow Rate 10/19/22 10:17 36.4 C L 78 21 127/76 97 Nasal Cannula 2 10/19/22 09:30 36.1 C L 71 16 88/48 L 92 Room Air 10/19/22 05:52 35.8 C L 76 16 116/66 96 Room Air 10/19/22 05:01 35.7 C L 62 16 108/65 96 Room Air 10/19/22 03:57 35.8 C L 75 16 100/59 L 95 Room Air PG Care Time/CCT Total # of Minutes Spent Total Time Spent with Patient: Total time spent is greater than 50% in coordination of care (as documented) at patient's floor/unit and/or counseling patient: Coding Level of Care Code 89619 Initial Inpt Care Lvl 2 Diagnoses Ulcers of both lower extremities L97.919; L97.929
[2022-10-19 15:25] LABS: BUN Creatinine Ratio 62.1 (10-20); Calcium 7.8 mg/dl (8.5-10.1); Creatinine Clr Calc Pharmacy 90.9 ml/min; Est GFR (African American) 107.5 ml/min; Est GFR (Non-African American) 92.7 ml/min; Potassium 3.7 mmol/L (3.5-5.1)
[2022-10-19] MEDS: ENOXAPARIN INJ 40 MG/0.4 ML SYR SQ SCH (17:37)
[2022-10-19] MEDS ORDERED: SODIUM CHLORIDE 0.9% 1000ML 1,000 ML IV SCH (19:41)
--- NOTE | 2022-10-19 19:45 | Hospitalist Progress Note ---
Date of Service October 19, 2022 Assessment & Plan (1) Sepsis associated hypotension: Plan: Has had hypothermia in the past. Daptomycin and cefepime p.m. day 1 being given for possible infection of wounds. Wounds debrided at bedside. Appreciate surgery help. Leukopenia and thrombocytopenia associated with sepsis. Watch closely. Also encephalopathy (2) Encephalopathy: Plan: Metabolicsignificant hypernatremia and also has sepsis. (3) Hypernatremia: Plan: Free water p.o. intake was being encouraged when I met her this morning. She already had over 500 cc within half an hour. advised to keep giving her water. Leg Ringer lactate stopped and D5 half-normal started. Got a bolus this evening with normal saline 1 L. 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 - Increased redness in b/l LEs, L > R, patient has no sensation in legs at baseline. -Wound cultures growing gram-positive cocci and gram-negative rods with gram- positive bacilli - Treat empirically with cefepime and daptomycin. Mixed nadine really not informative as far as tailoring antibiotics and will consider ID ID consult. - Wound care consulted. Appreciate their input and surgery's (5) Hypothermia: Plan: - 34.1 C rectal temp on presentation to ED, placed on tomás hugger. - Suspect secondary response to wound infection, admit to PCU with tomás hugger, treatment for wound infection as above. (6) Stage III pressure ulcer: Plan: - Chronic, patient is wheelchair-bound due to congenital spina bifida. Sees wound care clinic frequently. - Left leg is with worsening erythema with some drainage from wound. - Wound care consulted on admission. - Nystatin ordered for what appears to be fungal dermatitis on breasts. (7) Elevated LFTs: Plan: - AST 92, ALT 94, alk phos 144. T bili normal. Likely related to sepsis - Patient without any GI symptoms or history of liver disease. - Had similar elevations in January when she was admitted for hypothermia secondary to exposure and wound infection. GB u/s at that time did not show any acute abnormalities of the gallbladder, normal CBD. - We will hold her statin for now especially given she is on daptomycin for wound infection. - Trend while admitted. (8) Severe obstructive sleep apnea: Plan: - CPAP at night with 2 L NC. (9) Hypertension: Plan: - Holding amlodipine for hypotension. (10) History of CVA (cerebrovascular accident): Plan: - Left parietal CVA in 2020, continue aspirin 81 mg daily for secondary prevention. (11) Heart failure: Plan: - Documented history, unsure what kind. Not on any home diuretics. - Echo 2020: EF 55-60%. Mild LVH, no wma, left ventricular systolic function is normal. - Monitor volume status, strict I/Os. Curtis in place. (12) Thrombocytopenia: Plan: Watch closely as Lovenox being given. Plan - Admit to PCU. - SCDs, Lovenox for VTE ppx. Watch platelet count closely - Full Code. Discussed plan with in detail this morning as well as with RN. Admission and Anticipated Discharge Date Admission Date: October 18, 2022 Subjective Complains of nausea but no vomiting, unable to provide history. states that patient was very cool to the touch and that is why he brought her in. Was nauseated here and has had 2 episodes of emesis including 1 today. Is noted confusion since yesterday at baseline there is no cognitive impairment, she spends most of her chart time in a wheelchair Has had chronic ulcers on her leg and sees wound care as an outpatient, also does wax and wane notes that the patient was hypothermic in January after visit to [facility] in 48 F weather but had not gone outdoors in the last few days before she developed hypothermia at home. No change in weight recently Nursing notes the patient's heart rate fell to about 40 after vomiting earlier this morning. Was also tachycardic for a few seconds at 120 with transiently. Physical Exam Physical Exam: Seen around 10 AM , at bedside, awake and able to talk but tells me this is February or July. Even after being corrected and telling the correct month few minute minutes later she forgets it. says she is confusion this is new for her. Able to name her . Unable to tell me what town she is. 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 Affect normal, judgment and insight impaired in this acute confusional stat Results & Data Results & Data ([facility]) Vital Signs (Past 12 Hours) Vital Signs Temp Pulse Pulse Resp BP BP Pulse Ox 10/19/22 18:30 36.3 C L 10/19/22 18:01 75 16 98 10/19/22 18:00 77 18 98 10/19/22 17:00 78 18 98 10/19/22 16:00 71 25 H 99 10/19/22 16:00 91/48 L 10/19/22 15:00 75 26 H 99 10/19/22 15:00 81/37 L 10/19/22 12:15 36.4 C L 10/19/22 10:17 36.4 C L 78 21 127/76 97 10/19/22 09:30 36.1 C L 71 16 88/48 L 92 O2 Del Method O2 Flow Rate 10/19/22 18:30 10/19/22 18:01 10/19/22 18:00 10/19/22 17:00 10/19/22 16:00 10/19/22 16:00 10/19/22 15:00 Room Air 10/19/22 15:00 10/19/22 12:15 10/19/22 10:17 Nasal Cannula 2 10/19/22 09:30 Room Air Laboratory Results Abnormal lab results 10/19/22 10/19/22 10/19/22 Range/Units 05:58 05:58 14:43 WBC 2.71 L (4.8-10.8) K/ul RBC 3.12 L (3.93-5.22) M/uL Hgb 9.0 L (12.0-16.0) g/dl Hct 28.4 L (34.1-44.9) % MCHC 31.7 L (32.0-36.0) g/dL RDW Std Deviation 57.5 H (36.4-46.3) fL RDW Coeff of Deanna 17.9 H (11.5-14.5) % Plt Count 90 L (130-400) K/uL Lymph # (Auto) 0.21 L (1.2-3.4) K/uL Kleberg # (Auto) 0.22 L (0.24-0.82) K/uL Sodium 150 H 148 H (136-145) mmol/L Chloride 117 H 116 H (98-107) mmol/L BUN 36 H 36 H (6-23) mg/dl Creatinine 0.58 L (0.6-1.2) mg/dl BUN/Creatinine Ratio 55.4 H 62.1 H (10-20) Glucose 66 L (70-99(Fasting)) mg/dl Calcium 8.1 L 7.8 L (8.5-10.1) mg/dl AST 75 H (13-39) U/L ALT 73 H (7-52) U/L Total Protein 5.4 L D (6.0-8.3) gm/dl Albumin 2.8 L (3.4-5.0) gm/dl Medications Administered Home Medications Medication Instructions Recorded Confirmed Last Taken albuterol sulfate 90 mcg/actuation 2 puff inhalation DIRECTED PRN 09/21/18 09/30/22 Unknown aerosol inhaler Shortness Of Breath Or Wheezing Oxygen Home #1 ea 05/21/21 09/30/22 Unknown amlodipine 5 mg tablet (Norvasc) 5 mg PO QAM #30 tabs 05/21/21 09/30/22 01/19/22 aspirin 81 mg tablet,delayed 81 mg PO QAM #90 tabs 05/21/21 09/30/22 01/19/22 release atorvastatin 40 mg tablet 40 mg PO QAM #30 tabs 05/21/21 09/30/22 01/19/22 pantoprazole 40 mg tablet,delayed 40 mg PO DAILY 10/20/21 09/30/22 01/19/22 release Active Medications Generic Name Dose Route Start Last Admin Trade Name Freq PRN Reason Stop Dose Admin Aspirin 81 mg 10/19/22 09:00 10/19/22 10:38 Aspirin 81 Mg Ectab PO 11/18/22 08:59 81 mg QAM POLLY Administration Enoxaparin Sodium 40 mg 10/18/22 16:00 10/19/22 17:37 Enoxaparin Inj 40 Mg/0.4 Ml Syr SQ 11/17/22 15:59 40 mg Q24H POLLY Administration Daptomycin 400 mg/ Syringe 8 mls @ 4 mls/min 10/19/22 09:00 10/19/22 13:29 IV 10/25/22 08:59 4 mls/min Q24H POLLY Administration Protocol Cefepime HCl 2,000 mg/ Syringe 20 mls @ 5 mls/min 10/18/22 20:00 10/19/22 14:56 IV 10/25/22 19:59 5 mls/min Q8H POLLY Administration Dextrose/Sodium Chloride 1,000 mls @ 125 mls/hr 10/19/22 11:15 10/19/22 13:18 D5w And 1/2nss IV 11/18/22 09:59 125 mls/hr .Q8H POLLY Administration Nystatin 1 appln 10/18/22 21:00 10/19/22 09:23 Nystatin Powder 15gm Btl EXT 11/17/22 20:59 1 appln BID POLLY Administration Pantoprazole Sodium 40 mg 10/19/22 09:00 10/19/22 10:38 Pantoprazole 40 Mg Tab PO 11/18/22 08:59 40 mg DAILY POLLY Administration PG Care Time/CCT Total # of Minutes Spent Total Time Spent with Patient: Total time spent is greater than 50% in coordination of care (as documented) at patient's floor/unit and/or counseling patient: Coding Level of Care Code 36411 Subseq Hosp Care Lvl 3 Diagnoses Sepsis associated hypotension A41.9; I95.9 Encephalopathy G93.40 Hypernatremia E87.0 Wound infection T14.8XXA; L08.9 Hypothermia T68.XXXA Stage III pressure ulcer L89.93 Elevated LFTs R79.89 Severe obstructive sleep apnea G47.33 Hypertension I10 Hypertension type: primary hypertension History of CVA (cerebrovascular accident) Z86.73 Heart failure I50.9 Thrombocytopenia D69.6 (1) Hypertension Hypertension type: primary hypertension Qualified Code(s): I10 - Essential (primary) hypertension
[2022-10-20] MEDS: D5W AND 1/2NSS 1,000 ML IV SCH ×2 (04:20→06:22)
[2022-10-20] MEDS: CEFEPIME 2,000 MG in SYRINGE 0 ML IV SCH (04:21)
[2022-10-20 07:24] LABS: BUN Creatinine Ratio 44.4 (10-20); Calcium 7.2 mg/dl (8.5-10.1); Creatinine Clr Calc Pharmacy 75.1 ml/min; Est GFR (African American) 97.7 ml/min; Est GFR (Non-African American) 84.3 ml/min; Potassium 3.6 mmol/L (3.5-5.1)
[2022-10-20] MEDS: PANTOprazole 40 MG TAB PO SCH (08:20)
[2022-10-20] MEDS: ASPIRIN 81 MG ECTAB PO SCH (08:20)
[2022-10-20] MEDS: DAPTOmycin 400 MG in SYRINGE 0 ML IV SCH (08:20)
--- NOTE | 2022-10-20 09:26 | Hospitalist Progress Note ---
Date of Service October 20, 2022 Assessment & Plan (1) Sepsis associated hypotension: Plan: Has had hypothermia in the past. Daptomycin and cefepime p.m. day 2 being given for possible infection of wounds. Stop cefepime. keep daptomycin wound x- gnr plus staph not idwentified yet Wounds debrided at bedside 10/19. Consult ID - sepsis with wound likely source- tailoring abx to wound cx Leukopenia and thrombocytopenia associated with sepsis. follow CBC resolved encephalopathy- see below (2) Encephalopathy: Plan: Metabolicsignificant hypernatremia and also has sepsis. 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 intake was being encouraged -- continue today as well I ve told RN and patient (4) Wound infection: Plan: - Chronic stage 3 pressure wounds 2/2 wheelchair bound from spina bifida. - Increased redness in b/l LEs, L > R, patient has no sensation in legs at baseline. -Wound cultures growing gram-positive cocci and gram-negative rods with gram- positive bacilli - see #1- ID consult - Wound care consulted. Appreciate their input and surgery's (5) Hypothermia: Plan: - 34.1 C rectal temp on presentation to ED, placed on tomás hugger. - Suspect secondary response to wound infection, admit to PCU with tomás hugger, treatment for wound infection as above. (6) Stage III pressure ulcer: Plan: - Chronic, patient is wheelchair-bound due to congenital spina bifida. Sees wound care clinic frequently. - Left leg is with worsening erythema with some drainage from wound. - Wound care consulted on admission. - Nystatin ordered for what appears to be fungal dermatitis on breasts. (7) Elevated LFTs: Plan: - AST 92, ALT 94>>> both 70s 10/19, - shock liver- resolving -resume home statin (8) Severe obstructive sleep apnea: Plan: - CPAP at night with 2 L NC. (9) Hypertension: Plan: - Holding amlodipine for hypotension. (10) History of CVA (cerebrovascular accident): Plan: - Left parietal CVA in 2021, continue aspirin 81 mg daily for secondary prevention. (11) Heart failure: Plan: - Documented history, unsure what kind. Not on any home diuretics. STOP telemetry - Echo 2020: EF 55-60%. Mild LVH, no wma, left ventricular systolic function is normal. - Monitor volume status, strict I/Os. Curtis in place. (12) Thrombocytopenia: Plan: Watch closely as Lovenox being given. Plan 10/20 stop telemetry PT evaluation for transfer discharge home next day or so if able to Admission and Anticipated Discharge Date Admission Date: October 18, 2022 Subjective feels good, seen at 0850 h denies n/v/pain cannot recall reason admitted 2 days ago admits to memory problemss but cannot tell how long that has been Physical Exam Physical Exam: Seen around 10 AM , at bedside, awake and able to talk but tells me this is February or July. Even after being corrected and telling the correct month few minute minutes later she forgets it. says she is confusion this is new for her. Able to name her . Unable to tell me what town she is. 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, 3/3 object registration- recall after a minute was 0/3, orineted to month, place Affect normal, insight uncertain Results & Data Results & Data ([facility]) Vital Signs (Past 12 Hours) Vital Signs Temp Pulse Pulse Resp BP Pulse Ox O2 Del Method 10/20/22 03:01 36.4 C L 65 18 107/67 99 Nasal Cannula 10/20/22 00:00 85 10/19/22 23:41 36.5 C 72 16 115/71 97 Nasal Cannula 10/19/22 23:33 Nasal Cannula 10/19/22 22:40 36.4 C L 75 20 128/80 97 Nasal Cannula O2 Flow Rate 10/20/22 03:01 2 10/20/22 00:00 10/19/22 23:41 2 10/19/22 23:33 2 10/19/22 22:40 2 Laboratory Results Abnormal lab results 10/19/22 10/20/22 Range/Units 14:43 06:00 Sodium 148 H 146 H (136-145) mmol/L Chloride 116 H 116 H (98-107) mmol/L BUN 36 H 32 H (6-23) mg/dl Creatinine 0.58 L (0.6-1.2) mg/dl BUN/Creatinine Ratio 62.1 H 44.4 H (10-20) Glucose 115 H (70-99(Fasting)) mg/dl Calcium 7.8 L 7.2 L (8.5-10.1) mg/dl pending today: TSH, hep panel, b12 level, CBC Medications Administered Current Inpatient Medications Acetaminophen (Acetaminophen 325 Mg Tab) 650 mg PO Q4H PRN PRN Reason: Pain or Fever Stop: 11/17/22 15:29 Al Hydrox/Mg Hydrox/Simethicone (Aluminum/Magnesium Susp 30 Ml Udc) 15 ml PO Q4H PRN PRN Reason: Dyspepsia Stop: 11/17/22 15:29 Albuterol (Albuterol Hfa 8 Gm Inhaler) 2 puffs INH Q6R PRN PRN Reason: Shortness Of Breath Or Wheezing Stop: 11/17/22 15:29 Aspirin (Aspirin 81 Mg Ectab) 81 mg PO QAM [facility] Stop: 11/18/22 08:59 Last Admin: 10/20/22 08:20 Dose: 81 mg Collagenase (Collagenase Oint 30 Gm Tube) 1 appln EXT DAILY [facility] Stop: 11/19/22 08:59 Enoxaparin Sodium (Enoxaparin Inj 40 Mg/0.4 Ml Syr) 40 mg SQ Q24H [facility] Stop: 11/17/22 15:59 Last Admin: 10/19/22 17:37 Dose: 40 mg Daptomycin 400 mg/ Syringe 8 mls @ 4 mls/min IV Q24H [facility]; Protocol Stop: 10/25/22 08:59 Last Admin: 10/20/22 08:20 Dose: 4 mls/min Cefepime HCl 2,000 mg/ Syringe 20 mls @ 5 mls/min IV Q8H [facility] Stop: 10/25/22 19:59 Last Admin: 10/20/22 04:21 Dose: 5 mls/min Dextrose/Sodium Chloride (D5w And 1/2nss) 1,000 mls @ 125 mls/hr IV .Q8H POLLY Stop: 11/18/22 09:59 Last Admin: 10/20/22 06:22 Dose: 125 mls/hr Nystatin (Nystatin Powder 15gm Btl) 1 appln EXT BID POLLY Stop: 11/17/22 20:59 Last Admin: 10/19/22 20:54 Dose: 1 appln Ondansetron HCl (Ondansetron Inj 2 Mg/Ml 2 Ml Vial) 4 mg IV Q6H PRN PRN Reason: Nausea Stop: 11/17/22 15:29 Pantoprazole Sodium (Pantoprazole 40 Mg Tab) 40 mg PO DAILY [facility] Stop: 11/18/22 08:59 Last Admin: 10/20/22 08:20 Dose: 40 mg PG Care Time/CCT Total # of Minutes Spent Total Time Spent with Patient: Total time spent is greater than 50% in coordination of care (as documented) at patient's floor/unit and/or counseling patient: Coding Level of Care Code 20223 Subseq Hosp Care Lvl 3 Diagnoses Sepsis associated hypotension A41.9; I95.9 Encephalopathy G93.40 Hypernatremia E87.0 Wound infection T14.8XXA; L08.9 Hypothermia T68.XXXA Stage III pressure ulcer L89.93 Elevated LFTs R79.89 Severe obstructive sleep apnea G47.33 Hypertension I10 Hypertension type: primary hypertension History of CVA (cerebrovascular accident) Z86.73 Heart failure I50.9 Thrombocytopenia D69.6 (1) Hypertension Hypertension type: primary hypertension Qualified Code(s): I10 - Essential (primary) hypertension
[2022-10-20 10:30] LABS: Hematocrit (blood only) 28.6 % (34.1-44.9); Hemoglobin 9.2 g/dl (12.0-16.0); Mean Corpuscular Hemoglobin 29.6 pg (25.0-34.0); Mean Corpuscular Hgb Conc 32.2 g/dL (32.0-36.0); Mean Platelet Volume 11.4 fL (9.4-12.3); Platelet Count 80 K/uL (130-400); RDW Coefficient of Variation 18.1 % (11.5-14.5); RDW Standard Deviation 59.7 fL (36.4-46.3); Red Blood Count 3.11 M/uL (3.93-5.22)
[2022-10-20 10:46] LABS: Albumin Level 2.9 gm/dl (3.4-5.0); Bilirubin Direct 0.1 mg/dl (0-0.2); Bilirubin,Total 0.5 mg/dl (0.2-1.0); Total Protein 5.7 gm/dl (6.0-8.3)
[2022-10-20 10:57] LABS: Basophils # (auto) 0.01 K/uL (0-0.2); Basophils % (auto) 0.3 %; Eosinophils # (auto) 0.14 K/uL (0-0.50); Eosinophils % (auto) 4.5 %; Giant Platelets 3+; Immature Granulocytes # (auto) 0.01 K/uL (0.00-0.02); Immature Granulocytes % (auto) 0.3 %; Lymphocytes # (auto) 0.45 K/uL (1.2-3.4); Lymphocytes % (auto) 14.5 %; Monocytes # (auto) 0.35 K/uL (0.24-0.82); Monocytes % (auto) 11.3 %; Neutrophils # (auto) 2.14 K/uL (1.4-6.5); Neutrophils % (auto) 69.1 %
[2022-10-20] MEDS: COLLAGENASE OINT 30 GM TUBE EXT SCH (11:55)
[2022-10-20] MEDS: NYSTATIN POWDER 15GM BTL EXT SCH ×2 (11:55→21:02)
[2022-10-20] MEDS: ONDANSETRON INJ 2 MG/ML 2 ML VIAL IV PRN (13:09)
--- NOTE | 2022-10-20 15:20 | Infectious Disease Consult ---
Date of Consultation October 20, 2022 Assessment & Plan (1) Ulcers of both lower extremities: (2) Hypothermia: (3) Encephalopathy: Plan 72yF with a PMH of spina bifida wheel chair bound, L parietal CVA, CAD, known pressure ulcers of lower extremity with lymphedema for which she sees wound care admitted to [facility] on 10/18 with hypothermia and hypotension likely secondary to LE wound infections s/p debridement on 10/19. Infectious Diseases has been consulted for antibiotic management of wound infections. On admission she was found to be hypothermic and hypotensive, ithout tachycardia or hypoxia. Labs notable for WBC 4.62, Hgb 10.6, AST 92, ALT 94, alk phos 144. 10/18 Blood cultures drawn and NGTD. CXR showed cardiomegaly without acute cardiopulmonary process. Empirically started on Daptomycin and Cefepime. 10/19 R leg wound culture growing Staph species and Corynebacterium, L leg wound culture growing staph species and gram negative bacilli. . She underwent inferior right lower extremity wound debridement by surgery on 10/19. Wound images reviewed. Discussion: Patient with likely infected superficial LE wounds. Blood cultures are NGTD and WBC has decreased. Her LFTs are also elevated (higher than her typical elevation). Her wound cultures are growing staph aureus, not speciated and pseudomonas. I would continue with cefepime, daptomycin. Hopeful we can narrow based on susceptibilities. Recommend C/W Daptomycin, we should check a baseline CPK level if not ordered yet Her Cefepime has dropped off, I will re-order Await cultures I will update Primary team regarding my recommendations Thank you for allowing me to participate in the care of your patient. ID will follow with you. Dianne Carrillo MD [facility], [facility] Consultation Information This patient recommendation is based on a telemedicine consult request which was completed asynchronously through chart review and information provided by the primary physician. The patient was not seen or examined today. The evaluation is consultative in nature and all patient care and treatment decisions can either be accepted or rejected by the patient's primary hospital-based treating physician using their own independent medical judgment for their patient. [employer] contact information: Please call ID [employer] Call Center . (Phone Number For Physician Use Only) Time Spent Reviewing Chart: 31+ minutes History of Present Illness Reason for Consultation: Wound infection Requesting Physician: Dr. Júnior Hood Attending Physician: Júnior Hood MD History of Present Illness 72yF with a PMH of spina bifida wheel chair bound, L parietal CVA, CAD, known pressure ulcers of lower extremity with lymphedema for which she sees wound care admitted to [facility] on 10/18 with hypotherapy and hypotension. Infectious Diseases has been consulted for antibiotic management of wound infections. Patient was brought into ED by her who found shwas very cold for past few day. Her most recent record for wound care was a 09/30 visit where lower extremity wounds were debrided, with notable stage III pressure ulcer on left leg. In the ED, 34.1 C rectal temp and patient placed on tomás hugger, BP 96/53, without tachycardia or hypoxia. Labs notable for WBC 4.62, Hgb 10.6, AST 92, ALT 94, alk phos 144. 10/18 Blood cultures drawn and NGTD. CXR showed cardiomegaly without acute cardiopulmonary process. Empirically started on Daptomycin and Cefepime. 10/19 R leg wound culture growing Staph species and Corynebacterium, L leg wound culture growing staph species and gram negative bacilli. Prior cultures have grown on 01/19 and 05/26 pseudomonas, without resistance, review of prior labs shows her AST/ALT have fluctuated in past. She underwent inferior right lower extremity wound debridement by surgery on 10/19. This area was excised with pickle pumper's and scissors which totaled about 2x2cm down to the wound bed. Both right lower extremity wounds were also debrided using a curette down to the wound bed, the superior wound measured about ~2x2cm, and inferior wound totaled ~5x3cm. ID has been consulted today for antibiotic recommendations. Since admission, VS improved and cultures are above. Allergies Allergy/AdvReac Type Severity Reaction Status Date / Time nalidixic acid Allergy Unknown Unknown Verified 09/30/22 13:05 Home Medications Medication Instructions Recorded Confirmed Type albuterol sulfate 90 mcg/actuation 2 puff inhalation DIRECTED PRN 09/21/18 09/30/22 History aerosol inhaler Shortness Of Breath Or Wheezing Oxygen Home #1 ea 05/21/21 09/30/22 Rx amlodipine 5 mg tablet (Norvasc) 5 mg PO QAM #30 tabs 05/21/21 09/30/22 Rx aspirin 81 mg tablet,delayed 81 mg PO QAM #90 tabs 05/21/21 09/30/22 Rx release atorvastatin 40 mg tablet 40 mg PO QAM #30 tabs 05/21/21 09/30/22 Rx pantoprazole 40 mg tablet,delayed 40 mg PO DAILY 10/20/21 09/30/22 History release Patient History Medical History Acute alteration in mental status Acute CHF (congestive heart failure) Acute soy-GJ-[id number] myocardial infarction Cellulitis Heart failure Hiatal hernia Hypertension Hypothermia Lymphedema of both lower extremities Meningitis spinal Neurogenic bladder (06/21/13) Paraplegia (06/21/13) Spina bifida (06/21/13) Takotsubo cardiomyopathy Traumatic open wound of left lower leg Surgical History H/O bone graft H/O section Hx of cholecystectomy Family History Father Hypertension Myocardial infarction Herniated disc Mother Myocardial infarction Colorectal cancer Uterine cancer Other Family history non-contributory Social History Smoking Status: Never smoker Second Hand Exposure: No; Hx Alcohol Use: No Hx Substance Use: No Preferred Language: Lao Communication Ability: Effective Visual Impairment: Limited Hearing Ability: Normal Breast Splitter Required: No Beliefs That Will Affect Care: None marital status: Current Living Situation: Spouse current occupational status: retired How many Children do You have: 2 Feels Safe at Home: Yes Safety Concerns: Feels Safe At This Time caffeine: Yes (tea) during the past year weight has: increased > 10 lbs Physical Activity Frequency: Does not Exercise Do you think of yourself as: straight/heterosexual Gender Identity: Female Assistive Devices: Wheelchair Results & Data ([facility]) Vital Signs (Past 12 Hours) Vital Signs Temp Pulse Resp BP Pulse Ox O2 Del Method 10/20/22 12:16 36.7 C 71 16 128/74 93 Room Air 10/20/22 08:00 78 18 158/91 H 98 Room Air Laboratory Results Laboratory Results - last 48 hr 10/19/22 10/19/22 10/19/22 05:58 05:58 14:43 WBC 2.71 L RBC 3.12 L Hgb 9.0 L Hct 28.4 L MCV 91.0 MCH 28.8 MCHC 31.7 L RDW Std Deviation 57.5 H RDW Coeff of Deanna 17.9 H Plt Count 90 L MPV 11.9 Immature Gran % (Auto) 0.4 Neut % (Auto) 81.9 Lymph % (Auto) 7.7 Avery % (Auto) 8.1 Eos % (Auto) 1.5 Baso % (Auto) 0.4 Neut # (Auto) 2.22 Lymph # (Auto) 0.21 L Avery # (Auto) 0.22 L Eos # (Auto) 0.04 Baso # (Auto) 0.01 Immature Gran # (Auto) 0.01 Giant Platelets 1+ Echinocytes 1+ Sodium 150 H 148 H Potassium 4.0 3.7 Chloride 117 H 116 H Carbon Dioxide 29 24 Anion Gap 4 8 BUN 36 H 36 H Creatinine 0.65 0.58 L Est Cr Clr Drug Dosing 81.9 90.9 Est GFR ( Amer) 103.5 107.5 Est GFR (Non-Af Amer) 89.3 92.7 BUN/Creatinine Ratio 55.4 H 62.1 H Glucose 66 L 76 Calcium 8.1 L 7.8 L Ionized Calcium Total Bilirubin 0.6 Direct Bilirubin AST 75 H ALT 73 H Alkaline Phosphatase 98 Total Protein 5.4 L D Albumin 2.8 L Globulin 2.6 Albumin/Globulin Ratio 1.1 Vitamin B12 TSH 10/20/22 10/20/22 10/20/22 06:00 10:03 10:03 WBC RBC Hgb Hct MCV MCH MCHC RDW Std Deviation RDW Coeff of Deanna Plt Count MPV Immature Gran % (Auto) Neut % (Auto) Lymph % (Auto) Avery % (Auto) Eos % (Auto) Baso % (Auto) Neut # (Auto) Lymph # (Auto) Avery # (Auto) Eos # (Auto) Baso # (Auto) Immature Gran # (Auto) Giant Platelets Echinocytes Sodium 146 H Potassium 3.6 Chloride 116 H Carbon Dioxide 27 Anion Gap 3 BUN 32 H Creatinine 0.72 Est Cr Clr Drug Dosing 75.1 Est GFR ( Amer) 97.7 Est GFR (Non-Af Amer) 84.3 BUN/Creatinine Ratio 44.4 H Glucose 115 H Calcium 7.2 L Ionized Calcium Total Bilirubin Direct Bilirubin AST ALT Alkaline Phosphatase Total Protein Albumin Globulin Albumin/Globulin Ratio Vitamin B12 733 TSH 3.218 10/20/22 10/20/22 10/20/22 10:03 10:03 10:03 WBC 3.10 L RBC 3.11 L Hgb 9.2 L Hct 28.6 L MCV 92.0 MCH 29.6 MCHC 32.2 RDW Std Deviation 59.7 H RDW Coeff of Deanna 18.1 H Plt Count 80 L MPV 11.4 Immature Gran % (Auto) 0.3 Neut % (Auto) 69.1 Lymph % (Auto) 14.5 Avery % (Auto) 11.3 Eos % (Auto) 4.5 Baso % (Auto) 0.3 Neut # (Auto) 2.14 Lymph # (Auto) 0.45 L Avery # (Auto) 0.35 Eos # (Auto) 0.14 Baso # (Auto) 0.01 Immature Gran # (Auto) 0.01 Giant Platelets 3+ Echinocytes Sodium Potassium Chloride Carbon Dioxide Anion Gap BUN Creatinine Est Cr Clr Drug Dosing Est GFR ( Amer) Est GFR (Non-Af Amer) BUN/Creatinine Ratio Glucose Calcium Ionized Calcium 1.05 L Total Bilirubin 0.5 Direct Bilirubin 0.1 AST 103 H ALT 89 H Alkaline Phosphatase 160 H Total Protein 5.7 L Albumin 2.9 L Globulin Albumin/Globulin Ratio Vitamin B12 TSH Microbiology 10/18/22 10:00 Leg,Right Gram Stain - Final 10/18/22 10:00 Leg,Right Wound Culture - Preliminary Staphylococcus species Corynebacterium species 10/18/22 10:31 Blood Aerobic Blood Culture - Preliminary No growth in Aerobic bottle after 48 hours. 10/18/22 10:31 Blood Anaerobic Blood Culture - Preliminary No growth in Anaerobic bottle after 48 hours. 10/18/22 10:16 Blood Aerobic Blood Culture - Preliminary No growth in Aerobic bottle after 48 hours. 10/18/22 10:16 Blood Anaerobic Blood Culture - Preliminary No growth in Anaerobic bottle after 48 hours. 10/18/22 22:30 Leg,Left Gram Stain - Final 10/18/22 22:30 Leg,Left Wound Culture - Preliminary Gram negative bacilli Diagnostic Findings Chest X-Ray 10/18/22 10:07 SINGLE VIEW CHEST CLINICAL HISTORY: Sepsis. FINDINGS: An AP, portable, supine chest radiograph is compared to study dated 01/19/2022 and correlated with chest CT dated 05/20/2021. The examination is significantly degraded by portable technique and patient rotation. The heart is mildly enlarged. The pulmonary vasculature is noncontrast. Chronic interstitial thickening is similar to previous. Scarring/atelectasis is noted at the lung bases. The lungs and pleural spaces are otherwise clear. No pneumothorax is seen. The skeletal structures are osteopenic. The bony thorax is grossly intact. Arthritic changes noted in the shoulders. There is thoracolumbar scoliosis. IMPRESSION: Mild cardiomegaly with no acute cardiopulmonary abnormality. ACT 112: Negative or not required by law. Electronically signed by: Aaron Pandey M.D. 10/18/2022 10:31 AM Medications Administered Current Inpatient Medications Acetaminophen (Acetaminophen 325 Mg Tab) 650 mg PO Q4H PRN PRN Reason: Pain or Fever Stop: 11/17/22 15:29 Al Hydrox/Mg Hydrox/Simethicone (Aluminum/Magnesium Susp 30 Ml Udc) 15 ml PO Q4H PRN PRN Reason: Dyspepsia Stop: 11/17/22 15:29 Albuterol (Albuterol Hfa 8 Gm Inhaler) 2 puffs INH Q6R PRN PRN Reason: Shortness Of Breath Or Wheezing Stop: 11/17/22 15:29 Aspirin (Aspirin 81 Mg Ectab) 81 mg PO QAM POLLY Stop: 11/18/22 08:59 Last Admin: 10/20/22 08:20 Dose: 81 mg Collagenase (Collagenase Oint 30 Gm Tube) 1 appln EXT DAILY POLLY Stop: 11/19/22 08:59 Last Admin: 10/20/22 11:55 Dose: 1 appln Enoxaparin Sodium (Enoxaparin Inj 40 Mg/0.4 Ml Syr) 40 mg SQ Q24H POLLY Stop: 11/17/22 15:59 Last Admin: 10/19/22 17:37 Dose: 40 mg Daptomycin 400 mg/ Syringe 8 mls @ 4 mls/min IV Q24H POLLY; Protocol Stop: 10/25/22 08:59 Last Admin: 10/20/22 08:20 Dose: 4 mls/min Nystatin (Nystatin Powder 15gm Btl) 1 appln EXT BID [facility] Stop: 11/17/22 20:59 Last Admin: 10/20/22 11:55 Dose: 1 appln Ondansetron HCl (Ondansetron Inj 2 Mg/Ml 2 Ml Vial) 4 mg IV Q6H PRN PRN Reason: Nausea Stop: 11/17/22 15:29 Last Admin: 10/20/22 13:09 Dose: 4 mg Pantoprazole Sodium (Pantoprazole 40 Mg Tab) 40 mg PO DAILY [facility] Stop: 11/18/22 08:59 Last Admin: 10/20/22 08:20 Dose: 40 mg
[2022-10-20] MEDS: ENOXAPARIN INJ 40 MG/0.4 ML SYR SQ SCH (17:44)
[2022-10-21 06:42] LABS: Hemoglobin 9.2 g/dl (12.0-16.0); Mean Corpuscular Hemoglobin 29.2 pg (25.0-34.0); Mean Corpuscular Hgb Conc 31.7 g/dL (32.0-36.0); Mean Corpuscular Volume 92.1 fL (80.0-100.0); Mean Platelet Volume 11.9 fL (9.4-12.3); Platelet Count 75 K/uL (130-400); RDW Coefficient of Variation 18.2 % (11.5-14.5); RDW Standard Deviation 59.8 fL (36.4-46.3); Red Blood Count 3.15 M/uL (3.93-5.22); White Blood Count 3.88 K/ul (4.8-10.8)
[2022-10-21 06:56] LABS: BUN Creatinine Ratio 45.2 (10-20); Calcium 7.7 mg/dl (8.5-10.1); Creatinine Clr Calc Pharmacy 85.6 ml/min; Est GFR (African American) 105.1 ml/min; Est GFR (Non-African American) 90.7 ml/min; Magnesium 1.9 mg/dl (1.7-2.4); Potassium 3.4 mmol/L (3.5-5.1)
[2022-10-21 07:25] LABS: Basophils # (auto) 0.01 K/uL (0-0.2); Basophils % (auto) 0.3 %; Eosinophils % (auto) 5.2 %; Giant Platelets 1+; Immature Granulocytes # (auto) 0.05 K/uL (0.00-0.02); Immature Granulocytes % (auto) 1.3 %; Lymphocytes # (auto) 0.83 K/uL (1.2-3.4); Lymphocytes % (auto) 21.4 %; Monocytes # (auto) 0.39 K/uL (0.24-0.82); Monocytes % (auto) 10.1 %; Neutrophils % (auto) 61.7 %
[2022-10-21] MEDS ORDERED: CEFEPIME 2,000 MG in SYRINGE 0 ML IV SCH (08:00)
[2022-10-21] MEDS: DAPTOmycin 400 MG in SYRINGE 0 ML IV SCH (09:37)
[2022-10-21] MEDS: COLLAGENASE OINT 30 GM TUBE EXT SCH (09:37)
[2022-10-21] MEDS: NYSTATIN POWDER 15GM BTL EXT SCH ×2 (09:37→23:02)
[2022-10-21] MEDS: PANTOprazole 40 MG TAB PO SCH (09:40)
[2022-10-21] MEDS: ASPIRIN 81 MG ECTAB PO SCH (09:40)
[2022-10-21] MEDS: DEXTROSE 5% 1,000 ML IV SCH ×2 (09:49→22:55)
--- NOTE | 2022-10-21 11:18 | Infectious Disease Progress Nt ---
Date of Service October 21, 2022 Assessment & Plan (1) Ulcers of both lower extremities: (2) Hypothermia: (3) Encephalopathy: Plan 72yF with a PMH of spina bifida wheel chair bound, L parietal CVA, CAD, known pressure ulcers of lower extremity with lymphedema for which she sees wound care admitted to [facility] on 10/18 with hypothermia and hypotension likely secondary to LE wound infections s/p debridement on 10/19. Infectious Diseases has been consulted for antibiotic management of wound infections. On admission she was found to be hypothermic and hypotensive, ithout tachycardia or hypoxia. Labs notable for WBC 4.62, Hgb 10.6, AST 92, ALT 94, alk phos 144. 10/18 Blood cultures drawn and NGTD. CXR showed cardiomegaly without acute cardiopulmonary process. Empirically started on Daptomycin and Cefepime. 10/19 R leg wound culture growing MSSA and Corynebacterium, L leg wound culture growing MSSA and Proteus species, I Zosyn . She underwent inferior right lower extremity wound debridement by surgery on 10/19. Wound images reviewed. Discussion: Patient with likely infected superficial LE wounds. Blood cultures are NGTD and WBC has decreased. Her LFTs are also elevated (higher than her typical elevation). Her wound cultures are growing MSSA and proteus . We can narrow her to Cefazolin 2G IV TID and DC broad antibiotics. Recommend -DC Daptomycin -DC Cefepime -Start Cefazolin 2G IV TID -When her emesis/nausea improve we can change to po to complete therapy I will update Primary team regarding my recommendations Thank you for allowing me to participate in the care of your patient. ID will follow with you. Dianne Carrillo MD [facility], [facility] Admission and Anticipated Discharge Date Admission Date: October 18, 2022 Subjective Subsequent visit was provided via telemedicine using two-way real-time interactive telecommunication between the patient and the telemedicine provider. For the duration of the visit, the provider was performing the assessment from a different facility than the patient. This includesuse of bluetooth stethoscope forauscultationperformed by the telepresenter that the telemedicine provider can hear if described in the physical exam. [employer] contact information: Please call [facility] Call Center . (Phone Number For Physician Use Only) After establishing a telemedicine visit, patient was: Patient was verified with two unique identifiers, Patient/authorized rep acknowledged consent and understanding and Gave permission to continue telehealth session 24 hours JENN Wound cx: MSSA, proteus pansensitive, except I: piptazo S: Patient had episode of emesis, feels nauseous. at bedside, states she gets sick with antibiotics Physical Exam Constitutional: WD/WN, vitals as above Gastrointestinal (Abdomen): normal bowel sounds, soft, nontender, no hepatosplenomegaly Skin: Sacral ulcer RLE 2 wounds/ulcers Results & Data ([facility]) Vital Signs (Past 12 Hours) Vital Signs Temp Pulse Pulse Resp BP Pulse Ox O2 Del Method 10/21/22 10:48 36.4 C L 64 18 123/65 96 Nasal Cannula 10/21/22 08:00 36.5 C 59 L 18 143/82 H 99 Nasal Cannula 10/21/22 07:40 67 10/21/22 03:09 36.3 C L 66 16 131/74 98 Nasal Cannula 10/21/22 00:57 63 10/21/22 00:43 Nasal Cannula O2 Flow Rate 10/21/22 10:48 2.5 10/21/22 08:00 2.5 10/21/22 07:40 10/21/22 03:09 2.0 10/21/22 00:57 10/21/22 00:43 2 Laboratory Results Laboratory Results - last 48 hr 10/19/22 10/20/22 10/20/22 14:43 06:00 10:03 WBC RBC Hgb Hct MCV MCH MCHC RDW Std Deviation RDW Coeff of Deanna Plt Count MPV Immature Gran % (Auto) Neut % (Auto) Lymph % (Auto) [place] % (Auto) Eos % (Auto) Baso % (Auto) Neut # (Auto) Lymph # (Auto) [place] # (Auto) Eos # (Auto) Baso # (Auto) Immature Gran # (Auto) Giant Platelets Sodium 148 H 146 H Potassium 3.7 3.6 Chloride 116 H 116 H Carbon Dioxide 24 27 Anion Gap 8 3 BUN 36 H 32 H Creatinine 0.58 L 0.72 Est Cr Clr Drug Dosing 90.9 75.1 Est GFR ( Amer) 107.5 97.7 Est GFR (Non-Af Amer) 92.7 84.3 BUN/Creatinine Ratio 62.1 H 44.4 H Glucose 76 115 H Calcium 7.8 L 7.2 L Ionized Calcium Magnesium Total Bilirubin Direct Bilirubin AST ALT Alkaline Phosphatase Total Protein Albumin Vitamin B12 733 TSH 10/20/22 10/20/22 10/20/22 10:03 10:03 10:03 WBC 3.10 L RBC 3.11 L Hgb 9.2 L Hct 28.6 L MCV 92.0 MCH 29.6 MCHC 32.2 RDW Std Deviation 59.7 H RDW Coeff of Deanna 18.1 H Plt Count 80 L MPV 11.4 Immature Gran % (Auto) 0.3 Neut % (Auto) 69.1 Lymph % (Auto) 14.5 [place] % (Auto) 11.3 Eos % (Auto) 4.5 Baso % (Auto) 0.3 Neut # (Auto) 2.14 Lymph # (Auto) 0.45 L [place] # (Auto) 0.35 Eos # (Auto) 0.14 Baso # (Auto) 0.01 Immature Gran # (Auto) 0.01 Giant Platelets 3+ Sodium Potassium Chloride Carbon Dioxide Anion Gap BUN Creatinine Est Cr Clr Drug Dosing Est GFR ( Amer) Est GFR (Non-Af Amer) BUN/Creatinine Ratio Glucose Calcium Ionized Calcium Magnesium Total Bilirubin 0.5 Direct Bilirubin 0.1 AST 103 H ALT 89 H Alkaline Phosphatase 160 H Total Protein 5.7 L Albumin 2.9 L Vitamin B12 TSH 3.218 10/20/22 10/21/22 10/21/22 10:03 06:10 06:10 WBC 3.88 L RBC 3.15 L Hgb 9.2 L Hct 29.0 L MCV 92.1 MCH 29.2 MCHC 31.7 L RDW Std Deviation 59.8 H RDW Coeff of Deanna 18.2 H Plt Count 75 L MPV 11.9 Immature Gran % (Auto) 1.3 Neut % (Auto) 61.7 Lymph % (Auto) 21.4 [place] % (Auto) 10.1 Eos % (Auto) 5.2 Baso % (Auto) 0.3 Neut # (Auto) 2.40 Lymph # (Auto) 0.83 L [place] # (Auto) 0.39 Eos # (Auto) 0.20 Baso # (Auto) 0.01 Immature Gran # (Auto) 0.05 H Giant Platelets 1+ Sodium 148 H Potassium 3.4 L Chloride 116 H Carbon Dioxide 28 Anion Gap 4 BUN 28 H Creatinine 0.62 Est Cr Clr Drug Dosing 85.6 Est GFR ( Amer) 105.1 Est GFR (Non-Af Amer) 90.7 BUN/Creatinine Ratio 45.2 H Glucose 78 Calcium 7.7 L Ionized Calcium 1.05 L Magnesium 1.9 Total Bilirubin Direct Bilirubin AST ALT Alkaline Phosphatase Total Protein Albumin Vitamin B12 TSH Microbiology 10/18/22 22:30 Leg,Left Gram Stain - Final 10/18/22 22:30 Leg,Left Wound Culture - Final Proteus vulgaris Staphylococcus aureus 10/18/22 10:00 Leg,Right Gram Stain - Final 10/18/22 10:00 Leg,Right Wound Culture - Final Staphylococcus aureus Corynebacterium species 10/18/22 10:31 Blood Aerobic Blood Culture - Preliminary No growth in Aerobic bottle after 48 hours. 10/18/22 10:31 Blood Anaerobic Blood Culture - Preliminary No growth in Anaerobic bottle after 48 hours. 10/18/22 10:16 Blood Aerobic Blood Culture - Preliminary No growth in Aerobic bottle after 48 hours. 10/18/22 10:16 Blood Anaerobic Blood Culture - Preliminary No growth in Anaerobic bottle after [address], [place] [address] / Director: Gary Lerma M.D. Clinical Laboratory Report Name: RJ DIAZ Acct: [id number] Status: ADM [place] : 1950 [facility] Date: 10/18/22 Age: 72 Sex: F Dis Date: Loc: Telemetry [address] [place] [address]/Bed: S2[facility] Spec: [id number] Collected: 10/18/22 Received: 10/18/[address]: Jeanie Salinas, PA-C Copy To: Gary Olmos MD Source: Leg,Left OV Order: Ordered: Surf Wnd Cul/Sm Procedure Result Verified Site Gram Stain Final 10/19/22 Gram Stain Result Moderate Gram Positive Cocci Few Gram Negative Bacilli Rare Gram Positive Bacilli Rare WBCs Seen Surface Wound Culture Final 10/21/22 Organism 1 Proteus vulgaris Quantity Moderate Sens Sensitivities to Follow +MixWound Plus Moderate Counts of Probable Skin Melody Organism 2 Staphylococcus aureus Quantity Few Sens Sensitivities to Follow P vulgaris S aureus RX M.I.C. RX M.I.C. --- --------- --- --------- Amox/Clav S <=8/4 Amp/Sul S <=8/4 Cefepime S <=2 Ceftriaxone S <=1 Ciprofloxacin S <=0.25 Clindamycin S <=0.5 Daptomycin S 1 Ertapenem S <=0.5 Erythromycin S <=0.5 Gentamicin S <=4 Levofloxacin S <=0.5 Meropenem S <=1 Oxacillin S 0.5 Tetracycline S <=4 Tobramycin S <=4 Trimeth/Sulfa S <=2/38 S <=0.5/9.5 Pip/Tazo I 64 Vancomycin S 2
[2022-10-21] MEDS ORDERED: ceFAZolin 2000MG 2,000 MG/15 ML SYR IV SCH (16:00)
[2022-10-21] MEDS: cefTRIAXone SODIUM 2,000 MG in DEXTROSE 5% 50 ML IV SCH (16:22)
[2022-10-21] MEDS: ENOXAPARIN INJ 40 MG/0.4 ML SYR SQ SCH (16:25)
--- NOTE | 2022-10-21 17:40 | Hospitalist Progress Note ---
Date of Service October 21, 2022 Assessment & Plan (1) Sepsis associated hypotension: Plan: Has had hypothermia in the past. Daptomycin and cefepime given for wound infection-cefepime had been stopped but I restarted it on the morning of 10/21 Wound culture now growing Proteus vulgaris and MSSA Consult ID - sepsis with wound likely source-will now narrow coverage down to ceftriaxone which covers for Proteus and MSSA Leukopenia and thrombocytopenia associated with sepsis slightly worsened today. follow CBC Acute encephalopathy secondary to sepsis-significantly improved Follow CBC, CMP, CRP in the morning (2) Encephalopathy: Plan: Metabolicsignificant hypernatremia and also has sepsis. 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 - Increased redness in b/l LEs, L > R, patient has no sensation in legs at baseline. -Wound cultures as above - see #1- ID consult - Wound care consulted. Appreciate their input and surgery's The patient's wheelchair from home was present in the room and was observed to be filthy with blood stains and purulent material throughout the cushion in the leg rest Advised replacement of cushion or at a minimum, to be professionally laundered and sterilized. This was discussed with the patient, her , and sister at the bedside (6) Hypothermia: Plan: - 34.1 C rectal temp on presentation to ED, placed on tomás hugger. -Secondary to sepsis, now resolved (7) Stage III pressure ulcer: Plan: - Chronic, patient is wheelchair-bound due to congenital spina bifida. Sees wound care clinic frequently. As above - Nystatin ordered for what appears to be fungal dermatitis on breasts. (8) Elevated LFTs: Plan: - AST 92, ALT 94>>> both 70s 10/19, - shock liver-was resolving, but slightly back up again today -continue to hold home statin -Now discontinuing daptomycin as well Follow CMP in the morning (9) Severe obstructive sleep apnea: Plan: - Continue CPAP at night with 2 L NC. (10) Hypertension: Plan: - Holding amlodipine for hypotension. (11) History of CVA (cerebrovascular accident): Plan: - Left parietal CVA in 2020, continue aspirin 81 mg daily for secondary prevention. -Holding statin as above for transaminitis (12) Heart failure: Plan: - Documented history, unsure what kind. Not on any home diuretics. -Remains on telemetry only with brief episode of PAT - Echo 2020: EF 55-60%. Mild LVH, no wma, left ventricular systolic function is normal. - Monitor volume status, strict I/Os. Curtis in place. (13) Thrombocytopenia: Plan: Watch closely as Lovenox being given. Platelets slightly lower today to 75, likely secondary to sepsis Should improve now that sepsis is resolving Also with anemia which is chronic and stable from previous at 9.2, normocytic B12 and TSH normal Check folate and iron studies in the morning Plan DVT prophylaxis Lovenox Disposition-continued stay on PCU, but likely can downgrade off telemetry tomorrow if continues to improve Admission and Anticipated Discharge Date Admission Date: October 18, 2022 Subjective Patient's mentation is almost back to baseline as per at the bedside. She reports feeling tired. She did also have nausea with some vomiting earlier today which is somewhat improved but still continues. She has not received any Zofran today. She often gets nausea and vomiting with being on antibiotics as per patient and her . Her sister was also at the bedside asking about how to prevent these wounds from getting infection. We discussed offloading pressure and keeping the wounds clean. Her sister showed me her home wheelchair which was sitting at the bedside which was completely filthy with blood stains and stains from purulent material. Her reports that he has never washed the cushion cover. Telemetry with normal sinus rhythm and sinus bradycardia with rates in the 60s, and 115 beat run of PAT. Review of Systems Review of Systems: All systems reviewed & are unremarkable except as noted in HPI & below Denies chest pains or shortness of breath, no abdominal pain, no bowel movement that she can recall since admission. Physical Exam Constitutional: WD/WN, vitals as above Eyes: + anicteric sclerae ENMT: external ear and nose normal, oropharynx normal Neck: trachea midline, no thyromegaly Respiratory: normal respiratory effort, lungs clear to auscultation Cardiovascular: Rate/Rhythm: regular rate and regular rhythm Heart Sounds: no murmur Extremities: + edema (Lymphedema bilateral lower extremities) Chest (Breasts): Chest: normal inspection of chest Gastrointestinal (Abdomen): normal bowel sounds, soft, nontender, no hepatosplenomegaly Musculoskeletal: Extremities: + extremities abnormal to inspection (With congenitally malformed feet with some toes on the end of legs) Skin: With diffuse ichthyosis of the lower extremities With multiple ulcers open on posterior lower extremities Neurologic: + focal motor deficit (Paralysis of lower extremities, 3/5 strength of RUE chronic) and awake Psychiatric: A+Ox3, euthymic affect Lymphatic: + lymphedema (Lower extremities) Results & Data Results & Data ([facility]) Vital Signs (Past 12 Hours) Vital Signs Temp Pulse Pulse Pulse Resp BP Pulse Ox 10/21/22 16:04 36.6 C 64 18 134/84 98 10/21/22 10:48 36.4 C L 64 18 123/65 96 10/21/22 08:00 36.5 C 59 L 18 143/82 H 99 10/21/22 07:40 67 O2 Del Method O2 Flow Rate 10/21/22 16:04 Nasal Cannula 2.5 10/21/22 10:48 Nasal Cannula 2.5 10/21/22 08:00 Nasal Cannula 2.5 10/21/22 07:40 Laboratory Results Labs reviewed PG Care Time/CCT Total # of Minutes Spent Total Time Spent with Patient: Total time spent is greater than 50% in coordination of care (as documented) at patient's floor/unit and/or counseling patient: Coding Level of Care Code 32845 Subseq Hosp Care Lvl 3 Diagnoses Sepsis associated hypotension A41.9; I95.9 Encephalopathy G93.40 Hypernatremia E87.0 Nausea & vomiting R11.2 Wound infection T14.8XXA; L08.9 Hypothermia T68.XXXA Stage III pressure ulcer L89.93 Elevated LFTs R79.89 Severe obstructive sleep apnea G47.33 Hypertension I10 Hypertension type: primary hypertension History of CVA (cerebrovascular accident) Z86.73 Heart failure I50.9 Thrombocytopenia D69.6 (1) Hypertension Hypertension type: primary hypertension Qualified Code(s): I10 - Essential (primary) hypertension
[2022-10-21] MEDS: ONDANSETRON INJ 2 MG/ML 2 ML VIAL IV PRN (17:49)
[2022-10-22] MEDS: PANTOprazole 40 MG TAB PO SCH (08:11)
[2022-10-22] MEDS: COLLAGENASE OINT 30 GM TUBE EXT SCH (08:12)
[2022-10-22] MEDS: NYSTATIN POWDER 15GM BTL EXT SCH ×2 (08:12→20:23)
[2022-10-22] MEDS: ASPIRIN 81 MG ECTAB PO SCH (08:12)
[2022-10-22 08:57] LABS: Albumin Level 2.9 gm/dl (3.4-5.0); BUN Creatinine Ratio 45.5 (10-20); Bilirubin,Total 0.5 mg/dl (0.2-1.0); C Reactive Protein 2.8 mg/dl (0-0.5); Calcium 7.4 mg/dl (8.5-10.1); Creatinine Clr Calc Pharmacy 120.6 ml/min; Est GFR (African American) 117.7 ml/min; Est GFR (Non-African American) 101.6 ml/min; Globulin 2.9 gm/dl (2.5-4.0); Potassium 3.2 mmol/L (3.5-5.1); Total Protein 5.8 gm/dl (6.0-8.3)
[2022-10-22 09:04] LABS: Hematocrit (blood only) 28.7 % (34.1-44.9); Hemoglobin 8.8 g/dl (12.0-16.0); White Blood Count 3.95 K/ul (4.8-10.8)
[2022-10-22 09:16] LABS: Basophils # (auto) 0.01 K/uL (0-0.2); Basophils % (auto) 0.3 %; Eosinophils # (auto) 0.25 K/uL (0-0.50); Eosinophils % (auto) 6.3 %; Immature Granulocytes # (auto) 0.05 K/uL (0.00-0.02); Immature Granulocytes % (auto) 1.3 %; Lymphocytes # (auto) 0.53 K/uL (1.2-3.4); Lymphocytes % (auto) 13.4 %; Mean Corpuscular Hemoglobin 28.8 pg (25.0-34.0); Mean Corpuscular Hgb Conc 30.7 g/dL (32.0-36.0); Mean Corpuscular Volume 93.8 fL (80.0-100.0); Mean Platelet Volume 11.9 fL (9.4-12.3); Monocytes # (auto) 0.27 K/uL (0.24-0.82); Monocytes % (auto) 6.8 %; Neutrophils # (auto) 2.84 K/uL (1.4-6.5); Neutrophils % (auto) 71.9 %; Platelet Count 75 K/uL (130-400); Platelet Estimate Decreased (Normal); RDW Coefficient of Variation 18.2 % (11.5-14.5); RDW Standard Deviation 61.6 fL (36.4-46.3); Red Blood Count 3.06 M/uL (3.93-5.22)
--- NOTE | 2022-10-22 09:34 | Infectious Disease Progress Nt ---
Date of Service October 22, 2022 Assessment & Plan (1) Ulcers of both lower extremities: (2) Hypothermia: (3) Encephalopathy: Plan 72yF with a PMH of spina bifida wheel chair bound, L parietal CVA, CAD, known pressure ulcers of lower extremity with lymphedema for which she sees wound care admitted to [facility] on 10/18 with hypothermia and hypotension likely secondary to LE wound infections s/p debridement on 10/19. Infectious Diseases has been consulted for antibiotic management of wound infections. On admission she was found to be hypothermic and hypotensive, ithout tachycardia or hypoxia. Labs notable for WBC 4.62, Hgb 10.6, AST 92, ALT 94, alk phos 144. 10/18 Blood cultures drawn and NGTD. CXR showed cardiomegaly without acute cardiopulmonary process. Empirically started on Daptomycin and Cefepime. 10/19 R leg wound culture growing MSSA and Corynebacterium, L leg wound culture growing MSSA and Proteus species, I Zosyn . She underwent inferior right lower extremity wound debridement by surgery on 10/19. Wound images reviewed. Today, she feels better, VS improved and WBC improved. However her LLE shows new erythema. It is difficult to say if this is inflammatory or secondary to sloughing of her skin. Discussion: Patient is being treated for cellulitis secondary to superficial LE wounds. Blood cultures are NGTD and WBC is normalizing (she was slightly leukopenic). She presented with hypothermia, hypotension, now better. Her LFTs are also elevated (higher than her typical elevation). Her wound cultures are growing MSSA and proteus, these are superficial and while we dont typically base abx off of these, she isnt growing any MDR infection and Ceftriaxone can treat both pathogens. If she continues to improve anticipate treatment for 10 days total with po Cefdinir 300mg po BID. Today, she does have some erythema of L leg, if over the weekend this worsens and concern for infection, please dc Ceftriaxone and broaden to Cefepime. Recommend -C/W Ceftriaxone 2G IV daily while inpatient -Can change to po Cefdinir as above and treate for 10 days total from admission (10/18-10/27) -If worsening as above, change Ceftriaxone to Cefepime 2G IV TID I spoke with Dr. Hood today regarding my recommendations Thank you for allowing me to participate in the care of your patient. ID will follow with you. Please page over the weekend with any questions, I will return to service on Tuesday. Dianne Carrillo MD [facility], [facility] Admission and Anticipated Discharge Date Admission Date: October 18, 2022 Subjective Subsequent visit was provided via telemedicine using two-way real-time interactive telecommunication between the patient and the telemedicine provider. For the duration of the visit, the provider was performing the assessment from a different facility than the patient. This includesuse of bluetooth stethoscope forauscultationperformed by the telepresenter that the telemedicine provider can hear if described in the physical exam. [employer]visor [employer] contact information: Please call [facility] Call Center . (Phone Number For Physician Use Only) After establishing a telemedicine visit, patient was: Patient was verified with two unique identifiers, Patient/authorized rep acknowledged consent and understanding and Gave permission to continue telehealth session 24 hours:JENN No new Micro S: Patient feeling better, she ate 2 pancakes. No nausea or emesis thus far this morning. Physical Exam Constitutional: WD/WN, vitals as above Gastrointestinal (Abdomen): normal bowel sounds, soft, nontender, no hepatosplenomegaly Skin: L leg appears worsened today, some sloughing with erythema surrounding. Not warm or tender to touch. R leg unchanged, dressing on wounds Results & Data ([facility]) Vital Signs (Past 12 Hours) Vital Signs Temp Pulse Pulse Pulse Resp BP Pulse Ox 10/22/22 07:39 36.3 C L 67 18 134/82 98 10/22/22 07:16 64 10/22/22 03:06 36.3 C L 68 16 132/77 97 10/21/22 22:05 68 10/21/22 23:34 36.5 C 68 18 123/69 96 O2 Del Method O2 Flow Rate 10/22/22 07:39 Nasal Cannula 2 10/22/22 07:16 10/22/22 03:06 Nasal Cannula 2.0 10/21/22 22:05 10/21/22 23:34 Nasal Cannula 2 Laboratory Results Laboratory Results - last 48 hr 10/20/22 10/20/22 10/20/22 10:03 10:03 10:03 WBC 3.10 L RBC 3.11 L Hgb 9.2 L Hct 28.6 L MCV 92.0 MCH 29.6 MCHC 32.2 RDW Std Deviation 59.7 H RDW Coeff of Deanna 18.1 H Plt Count 80 L MPV 11.4 Immature Gran % (Auto) 0.3 Neut % (Auto) 69.1 Lymph % (Auto) 14.5 [place] % (Auto) 11.3 Eos % (Auto) 4.5 Baso % (Auto) 0.3 Neut # (Auto) 2.14 Lymph # (Auto) 0.45 L [place] # (Auto) 0.35 Eos # (Auto) 0.14 Baso # (Auto) 0.01 Immature Gran # (Auto) 0.01 Platelet Estimate Giant Platelets 3+ Sodium Potassium Chloride Carbon Dioxide Anion Gap BUN Creatinine Est Cr Clr Drug Dosing Est GFR ( Amer) Est GFR (Non-Af Amer) BUN/Creatinine Ratio Glucose Calcium Ionized Calcium Magnesium Iron TIBC Unsaturated IBC Transferrin % Sat Total Bilirubin Direct Bilirubin AST ALT Alkaline Phosphatase C-Reactive Protein Total Protein Albumin Globulin Albumin/Globulin Ratio Vitamin B12 733 Folate TSH 3.218 10/20/22 10/20/22 10/21/22 10:03 10:03 06:10 WBC RBC Hgb Hct MCV MCH MCHC RDW Std Deviation RDW Coeff of Deanna Plt Count MPV Immature Gran % (Auto) Neut % (Auto) Lymph % (Auto) [place] % (Auto) Eos % (Auto) Baso % (Auto) Neut # (Auto) Lymph # (Auto) [place] # (Auto) Eos # (Auto) Baso # (Auto) Immature Gran # (Auto) Platelet Estimate Giant Platelets Sodium 148 H Potassium 3.4 L Chloride 116 H Carbon Dioxide 28 Anion Gap 4 BUN 28 H Creatinine 0.62 Est Cr Clr Drug Dosing 85.6 Est GFR ( Amer) 105.1 Est GFR (Non-Af Amer) 90.7 BUN/Creatinine Ratio 45.2 H Glucose 78 Calcium 7.7 L Ionized Calcium 1.05 L Magnesium 1.9 Iron TIBC Unsaturated IBC Transferrin % Sat Total Bilirubin 0.5 Direct Bilirubin 0.1 AST 103 H ALT 89 H Alkaline Phosphatase 160 H C-Reactive Protein Total Protein 5.7 L Albumin 2.9 L Globulin Albumin/Globulin Ratio Vitamin B12 Folate TSH 10/21/22 10/22/22 10/22/22 06:10 07:45 07:45 WBC 3.88 L 3.95 L RBC 3.15 L 3.06 L Hgb 9.2 L 8.8 L Hct 29.0 L 28.7 L MCV 92.1 93.8 MCH 29.2 28.8 MCHC 31.7 L 30.7 L RDW Std Deviation 59.8 H 61.6 H RDW Coeff of Deanna 18.2 H 18.2 H Plt Count 75 L 75 L MPV 11.9 11.9 Immature Gran % (Auto) 1.3 1.3 Neut % (Auto) 61.7 71.9 Lymph % (Auto) 21.4 13.4 Hampton % (Auto) 10.1 6.8 Eos % (Auto) 5.2 6.3 Baso % (Auto) 0.3 0.3 Neut # (Auto) 2.40 2.84 Lymph # (Auto) 0.83 L 0.53 L [place] # (Auto) 0.39 0.27 Eos # (Auto) 0.20 0.25 Baso # (Auto) 0.01 0.01 Immature Gran # (Auto) 0.05 H 0.05 H Platelet Estimate Decreased L Giant Platelets 1+ Sodium Cancelled Potassium Cancelled Chloride Cancelled Carbon Dioxide Cancelled Anion Gap Cancelled BUN Cancelled Creatinine Cancelled Est Cr Clr Drug Dosing Cancelled Est GFR ( Amer) Cancelled Est GFR (Non-Af Amer) Cancelled BUN/Creatinine Ratio Cancelled Glucose Cancelled Calcium Cancelled Ionized Calcium Magnesium Iron TIBC Unsaturated IBC Transferrin % Sat Total Bilirubin Direct Bilirubin AST ALT Alkaline Phosphatase C-Reactive Protein Total Protein Albumin Globulin Albumin/Globulin Ratio Vitamin B12 Folate TSH 10/22/22 10/22/22 10/22/22 07:45 07:56 07:56 WBC RBC Hgb Hct MCV MCH MCHC RDW Std Deviation RDW Coeff of Deanna Plt Count MPV Immature Gran % (Auto) Neut % (Auto) Lymph % (Auto) [place] % (Auto) Eos % (Auto) Baso % (Auto) Neut # (Auto) Lymph # (Auto) [place] # (Auto) Eos # (Auto) Baso # (Auto) Immature Gran # (Auto) Platelet Estimate Giant Platelets Sodium 144 Potassium 3.2 L Chloride 112 H Carbon Dioxide 27 Anion Gap 5 BUN 20 Creatinine 0.44 L Est Cr Clr Drug Dosing 120.6 Est GFR ( Amer) 117.7 Est GFR (Non-Af Amer) 101.6 BUN/Creatinine Ratio 45.5 H Glucose 110 H Calcium 7.4 L Ionized Calcium Magnesium Iron 58 Cancelled TIBC 215 L Cancelled Unsaturated IBC 157 Cancelled Transferrin % Sat 27 Cancelled Total Bilirubin 0.5 Direct Bilirubin AST 87 H ALT 87 H Alkaline Phosphatase 203 H C-Reactive Protein 2.80 H Total Protein 5.8 L Albumin 2.9 L Globulin 2.9 Albumin/Globulin Ratio 1.0 Vitamin B12 Folate 17.77 TSH Microbiology 10/18/22 22:30 Leg,Left Gram Stain - Final 10/18/22 22:30 Leg,Left Wound Culture - Final Proteus vulgaris Staphylococcus aureus 10/18/22 10:00 Leg,Right Gram Stain - Final 10/18/22 10:00 Leg,Right Wound Culture - Final Staphylococcus aureus Corynebacterium species 10/18/22 10:31 Blood Aerobic Blood Culture - Preliminary No growth in Aerobic bottle after 48 hours. 10/18/22 10:31 Blood Anaerobic Blood Culture - Preliminary No growth in Anaerobic bottle after 48 hours. 10/18/22 10:16 Blood Aerobic Blood Culture - Preliminary No growth in Aerobic bottle after 48 hours. 10/18/22 10:16 Blood Anaerobic Blood Culture - Preliminary No growth in Anaerobic bottle after 48 hours.
[2022-10-22] MEDS ORDERED: POTASSIUM CHLORIDE CRTAB 20 MEQ TABCR PO STA (10:15)
--- NOTE | 2022-10-22 15:39 | Hospitalist Progress Note ---
Date of Service October 22, 2022 Assessment & Plan (1) Sepsis associated hypotension: Plan: Right leg posterior wound status postdebridementdiscussed with ID Dr Dianne Carrillo-continue ceftriaxone for now and transition to cefdinir twice daily at discharge. Some erythema noted on the left posterior thigh by Dr Shelton turner today. Wound culture now growing Proteus vulgaris and MSSA Leukopenia and thrombocytopenia associated with sepsis slightly worsened today. follow CBC Acute encephalopathy secondary to sepsis-resolved (2) Encephalopathy: Plan: Metabolicsignificant hypernatremia and also has sepsis. 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 intake encouraged Hypokalemiap.o. 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 - Increased redness in b/l LEs, L > R, patient has no sensation in legs at baseline. -Wound cultures as above - see #1- ID consult - Wound care consulted. Appreciate their input and surgery's The patient's wheelchair from home was present in the room and was observed to be filthy with blood stains and purulent material throughout the cushion in the leg rest Advised replacement of cushion or at a minimum, to be professionally laundered and sterilized. This was discussed with the patient, her , and sister at the bedside 10/21 Plan discharge to halfway facility and change her wheelchair as its not mechanically suitable for hersee detailed physical therapy note. (6) Hypothermia: Plan: - 34.1 C rectal temp on presentation to ED, placed on bear hugger. -Secondary to sepsis, now resolved (7) Stage III pressure ulcer: Plan: - Chronic, patient is wheelchair-bound due to congenital spina bifida. Sees wound care clinic frequently. As above - Nystatin ordered for what appears to be fungal dermatitis on breasts. (8) Elevated LFTs: Plan: - AST 92, ALT 94>>> both 70s 10/19, - shock liver-was resolving, but slightly back up again today -continue to hold home statin -Now discontinuing daptomycin as well Follow CMP in the morning (9) Severe obstructive sleep apnea: Plan: - Continue CPAP at night with 2 L NC. (10) Hypertension: Plan: - Holding amlodipine for hypotension. (11) History of CVA (cerebrovascular accident): Plan: - Left parietal CVA in 2020, continue aspirin 81 mg daily for secondary prevention. -Holding statin as above for transaminitis (12) Heart failure: Plan: - Documented history, unsure what kind. Not on any home diuretics. -Remains on telemetry only with brief episode of PAT - Echo 05/16/2021: EF 55-60%. Mild LVH, no wma, left ventricular systolic function is normal. - Monitor volume status, strict I/Os. Curtis in place. (13) Thrombocytopenia: Plan: Watch closely as Lovenox being given. Platelets remain in the 70s No history of thrombocytopenia per records- Also with anemia which is chronic and stable from previous at 9.2, normocytic Anemia dating back to 9 months per chart B12 and TSH normal No iron deficiency anemia per iron studies Pancytopenia with elevated alkaline phosphatase: consult Hematology Malnutrition with prealbumin 02 Apr 2019 Plan DVT prophylaxis Lovenox Disposition-continued stay on PCU, but likely can downgrade off telemetry t omorrow if continues to improve Admission and Anticipated Discharge Date Admission Date: October 18, 2022 Subjective Seen around 1 PM today, had eaten less than half of her soup and toast, was talking with her sister at bedside No nausea/vomiting/chest pain or shortness of breath Physical Exam Physical Exam: Seen around 10 AM , at bedside, Able to name her sister. 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- missing half lower legs ( congenital ) wound exam deferred as ID had already sent checked out her right leg ulcers [employer] no sensation lower extremities, 3/3 object registration- recall after a sundar te was 0/3, oriented to month, place Right elbow flexors 3-4/5 ( I had a stroke some years ago) left elbow flexors 5 out of 5 Affect normal, insight adequate Results & Data Results & Data ([facility]) Vital Signs (Past 12 Hours) Vital Signs Temp Pulse Pulse Resp BP Pulse Ox O2 Del Method 10/22/22 08:15 Nasal Cannula 10/22/22 12:32 36.5 C 70 20 131/83 95 Room Air 10/22/22 07:39 36.3 C L 67 18 134/82 98 Nasal Cannula 10/22/22 07:16 64 O2 Flow Rate 10/22/22 08:15 1 10/22/22 12:32 10/22/22 07:39 2 10/22/22 07:16 Laboratory Results Abnormal lab results 10/22/22 10/22/22 Range/Units 07:45 07:45 WBC 3.95 L (4.8-10.8) K/ul RBC 3.06 L (3.93-5.22) M/uL Hgb 8.8 L (12.0-16.0) g/dl Hct 28.7 L (34.1-44.9) % MCHC 30.7 L (32.0-36.0) g/dL RDW Std Deviation 61.6 H (36.4-46.3) fL RDW Coeff of Deanna 18.2 H (11.5-14.5) % Plt Count 75 L (130-400) K/uL Lymph # (Auto) 0.53 L (1.2-3.4) K/uL Immature Gran # (Auto) 0.05 H (0.00-0.02) K/uL Platelet Estimate Decreased L (Normal) Potassium 3.2 L (3.5-5.1) mmol/L Chloride 112 H (98-107) mmol/L Creatinine 0.44 L (0.6-1.2) mg/dl BUN/Creatinine Ratio 45.5 H (10-20) Glucose 110 H (70-99(Fasting)) mg/dl Calcium 7.4 L (8.5-10.1) mg/dl TIBC 215 L (250-450) mcg/dl AST 87 H (13-39) U/L ALT 87 H (7-52) U/L Alkaline Phosphatase 203 H (34-104) U/L C-Reactive Protein 2.80 H (0-0.5) mg/dl Total Protein 5.8 L (6.0-8.3) gm/dl Albumin 2.9 L (3.4-5.0) gm/dl PG Care Time/CCT Total # of Minutes Spent Total Time Spent with Patient: Total time spent is greater than 50% in coordination of care (as documented) at patient's floor/unit and/or counseling patient: Coding Level of Care Code 45380 Subseq Hosp Care Lvl 3 Diagnoses Sepsis associated hypotension A41.9; I95.9 Encephalopathy G93.40 Hypernatremia E87.0 Nausea & vomiting R11.2 Wound infection T14.8XXA; L08.9 Hypothermia T68.XXXA Stage III pressure ulcer L89.93 Elevated LFTs R79.89 Severe obstructive sleep apnea G47.33 Hypertension I10 Hypertension type: primary hypertension History of CVA (cerebrovascular accident) Z86.73 Heart failure I50.9 Thrombocytopenia D69.6 (1) Hypertension Hypertension type: primary hypertension Qualified Code(s): I10 - Essential (primary) hypertension
[2022-10-22] MEDS: cefTRIAXone SODIUM 2,000 MG in DEXTROSE 5% 50 ML IV SCH (16:19)
[2022-10-22] MEDS: ENOXAPARIN INJ 40 MG/0.4 ML SYR SQ SCH (16:21)
[2022-10-22] MEDS: ONDANSETRON INJ 2 MG/ML 2 ML VIAL IV PRN (16:53)
[2022-10-23 06:37] LABS: Hematocrit (blood only) 27.2 % (34.1-44.9); Hemoglobin 8.4 g/dl (12.0-16.0); Mean Corpuscular Hemoglobin 28.7 pg (25.0-34.0); Mean Corpuscular Hgb Conc 30.9 g/dL (32.0-36.0); Mean Corpuscular Volume 92.8 fL (80.0-100.0); Mean Platelet Volume 11.5 fL (9.4-12.3); Platelet Count 79 K/uL (130-400); RDW Coefficient of Variation 18.3 % (11.5-14.5); RDW Standard Deviation 61.3 fL (36.4-46.3); Red Blood Count 2.93 M/uL (3.93-5.22); White Blood Count 4.31 K/ul (4.8-10.8)
[2022-10-23 06:52] LABS: Basophils # (auto) 0.02 K/uL (0-0.2); Basophils % (auto) 0.5 %; Immature Granulocytes # (auto) 0.08 K/uL (0.00-0.02); Immature Granulocytes % (auto) 1.9 %; Lymphocytes # (auto) 0.61 K/uL (1.2-3.4); Lymphocytes % (auto) 14.2 %; Monocytes # (auto) 0.45 K/uL (0.24-0.82); Monocytes % (auto) 10.4 %; Neutrophils # (auto) 2.85 K/uL (1.4-6.5)
[2022-10-23 06:59] LABS: BUN Creatinine Ratio 46.2 (10-20); Calcium 7.7 mg/dl (8.5-10.1); Creatinine Clr Calc Pharmacy 138.8 ml/min; Est GFR (African American) 122.5 ml/min; Est GFR (Non-African American) 105.7 ml/min; Magnesium 1.8 mg/dl (1.7-2.4); Potassium 3.7 mmol/L (3.5-5.1)
--- NOTE | 2022-10-23 07:55 | Oncology Consultation ---
Date of Consultation October 23, 2022 Assessment & Plan (1) Pancytopenia: (2) Breast cancer: (3) Sepsis: (4) Stage III pressure ulcer of left heel: Plan Very pleasant 72-year-old female with multiple comorbidities who was admitted for altered mental status, hypothermia due to sepsis from lower extremity infection. She has a longstanding history of chronic anemia due to chronic disease/inflammation as well as iron deficiency for which she had previously received IV iron infusions. -Her pancytopenia is mostly multifactorial but largely due to bone marrow suppression from sepsis. She has a longstanding history of chronic anemia due to chronic disease/inflammation as well as iron deficiency for which she had previously received IV iron infusions. Her hemoglobin usually ranges between 9 and 10. Will check ferritin and if ferritin is below 100, recommend IV Venofer 300 mg x2 doses. Her leukopenia has improved with white cell counts above 4000. Thrombocytopenia also appears to be improving. Would expect platelet count and white cell count to normalize with treatment of sepsis. Also expect her anemia to improve and return to her prior baseline of between 9 and 10. No evidence of hemolysis with normal bilirubin. For completeness, will obtain LDH, haptoglobin and reticulocyte count to evaluate for hemolysis. Also obtain fibrinogen to rule out DIC. Will also obtain serum protein electrophoresis since this has not been checked since 2018. -Regarding her ER/VT positive, HER2/shana negative breast cancer she can resume home anastrozole 1 mg p.o. daily Thank you for this consult. Hematology will follow patient peripherally while in the hospital. Please feel free to call if you have any further questions. History of Present Illness Attending Physician: Susi Card MD History of Present Illness Ms. العلي is a very pleasant 72-year-old female with a complicated medical history. She has a medical history significant for congenital spina bifida, hypertension, CHF, CVA and right breast cancer. 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 She also has a longstanding history of chronic anemia due to iron deficiency as well as chronic disease She presented to the ER at [facility] on 10/18/2022 because of altered mental status and hypothermia. At the time of evaluation, it was noted that her left leg was erythematous. Examination revealed hypothermia with temperature of 34.1 C (93.4 F). She was also found to be hypotensive. Due to concern for sepsis due to lower extremity wound ulcers, she was started on broad-spectrum antibiotics. Blood cultures were negative. Right leg wound culture grew MSSA and corynebacterium. Left leg wound culture also grew MSSA and Proteus species. She underwent right lower extremity wound debridement by surgery on 10/19/2022. Hematology was consulted for pancytopenia labs obtained yesterday revealed white cell count of 3.9, hemoglobin of 8.5 and platelet count of 75,000. At the time of evaluating patient today, she states that she is doing a lot better. She denies fever, chills, night sweats, headaches, dizziness, blurry vision. Endorses occasional nausea. Allergies Allergy/AdvReac Type Severity Reaction Status Date / Time nalidixic acid Allergy Unknown Unknown Verified 09/30/22 13:05 Home Medications Medication Instructions Recorded Confirmed Type albuterol sulfate 90 mcg/actuation 2 puff inhalation DIRECTED PRN 09/21/18 09/30/22 History aerosol inhaler Shortness Of Breath Or Wheezing Oxygen Home #1 ea 05/21/21 09/30/22 Rx amlodipine 5 mg tablet (Norvasc) 5 mg PO QAM #30 tabs 05/21/21 09/30/22 Rx aspirin 81 mg tablet,delayed 81 mg PO QAM #90 tabs 05/21/21 09/30/22 Rx release atorvastatin 40 mg tablet 40 mg PO QAM #30 tabs 05/21/21 09/30/22 Rx pantoprazole 40 mg tablet,delayed 40 mg PO DAILY 10/20/21 09/30/22 History release Patient History Medical History Acute alteration in mental status Acute CHF (congestive heart failure) Acute dxq-LN-rsqtruxuj myocardial infarction Cellulitis Heart failure Hiatal hernia Hypertension Hypothermia Lymphedema of both lower extremities Meningitis spinal Neurogenic bladder (06/21/13) Paraplegia (06/21/13) Spina bifida (06/21/13) Takotsubo cardiomyopathy Traumatic open wound of left lower leg Surgical History H/O bone graft H/O section Hx of cholecystectomy Family History Father Hypertension Myocardial infarction Herniated disc Mother Myocardial infarction Colorectal cancer Uterine cancer Other Family history non-contributory Social History Smoking Status: Never smoker Second Hand Exposure: No; Hx Alcohol Use: No Hx Substance Use: No Preferred Language: Arabic Communication Ability: Effective Visual Impairment: Limited Hearing Ability: Normal 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 Beliefs That Will Affect Care: Quaker Quaker Beliefs: Church marital status: Current Living Situation: Spouse current occupational status: retired How many Children do You have: 2 Feels Safe at Home: Yes Safety Concerns: Feels Safe At This Time caffeine: Yes (tea) during the past year weight has: increased > 10 lbs Physical Activity Frequency: Does not Exercise Do you think of yourself as: straight/heterosexual Gender Identity: Female Assistive Devices: Wheelchair Review of Systems Review of Systems: All systems reviewed & are unremarkable except as noted in Subjective Physical Exam Constitutional: WD/WN, vitals as above ENMT: external ear and nose normal, oropharynx normal Respiratory: + audible wheezes Cardiovascular: Rate/Rhythm: regular rate and regular rhythm Gastrointestinal (Abdomen): normal bowel sounds, soft, nontender, no hepatospl enomegaly Musculoskeletal: Shortened bilateral lower extremity Results & Data ([facility]) Vital Signs (Past 12 Hours) Vital Signs Temp Pulse Pulse Resp BP Pulse Ox O2 Del Method 10/23/22 07:27 36.5 C 76 19 131/84 92 Room Air 10/23/22 04:56 72 13 95 10/23/22 04:55 36.5 C 67 16 134/73 96 CPAP 10/22/22 23:48 69 15 95 10/22/22 23:56 36.6 C 70 18 126/75 96 CPAP 10/22/22 22:21 69 10/22/22 23:01 10/22/22 20:06 36.5 C 75 20 135/84 94 Room Air O2 Flow Rate 10/23/22 07:27 10/23/22 04:56 2 10/23/22 04:55 10/22/22 23:48 2 10/22/22 23:56 10/22/22 22:21 10/22/22 23:01 2 10/22/22 20:06 Laboratory Results As noted in HPI (1) Sepsis Sepsis type: sepsis due to unspecified organism Qualified Code(s): A41.9 - Sepsis, unspecified organism
[2022-10-23 08:27] LABS: Reticulocyte % 1.6 % (0.5-2.0); Reticulocytes # 0.05 10^6/uL (0.02-0.10)
[2022-10-23 08:47] LABS: Fibrinogen 507 mg/dl (184-400)
[2022-10-23] MEDS: ASPIRIN 81 MG ECTAB PO SCH (09:18)
[2022-10-23] MEDS: PANTOprazole 40 MG TAB PO SCH (09:18)
[2022-10-23] MEDS: NYSTATIN POWDER 15GM BTL EXT SCH ×2 (09:19→21:59)
[2022-10-23] MEDS: COLLAGENASE OINT 30 GM TUBE EXT SCH (09:19)
[2022-10-23] MEDS: LEVOTHYROXINE SODIUM 50 MCG TABLET PO SCH (10:00)
[2022-10-23] MEDS: ANASTROZOLE 1 MG TAB PO SCH (10:00)
--- NOTE | 2022-10-23 14:10 | Hospitalist Progress Note ---
Date of Service October 23, 2022 Assessment & Plan (1) Sepsis associated hypotension: Plan: Presented with hypothermia, hypotension, and acute encephalopathy secondary to wound infection on lower extremity with surrounding erythema Right leg posterior wound status post debridement by general surgery Wound cultures growing Proteus vulgaris and MSSA Blood cultures remain no growth to date Appreciate ID recommendations- -continue ceftriaxone for now and transition to cefdinir twice daily at discharge. Patient prefers to switch to p.o. cefdinir now as she thinks IV antibiotics are making her nauseated-last day of therapy will be 10/27 for total of 10 days Continue local wound care Leukopenia and thrombocytopenia associated with sepsis slightly worsened today. follow CBC Acute encephalopathy secondary to sepsis-resolved (2) Encephalopathy: Plan: Metabolicsecondary to significant hypernatremia and also has sepsis. 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 (3) Anemia: Plan: Hemoglobin remains low at 8.4 and stable from previous Seen by hematology Transferrin saturation normal at 27%, ferritin 219, B12 and folate normal at 733 and 17, respectively TSH normal at 3.2 Hematology recommended SPEP which is pending No evidence of hemolysis with normal total bilirubin and normal LDH, reticulocyte count is normal Follow CBC Most likely anemia of chronic disease Follow-up with hematology as an outpatient (4) Constipation: Plan: Add senna/docusate as above Last bowel movement 10/19 May be contributing to her ongoing nausea (5) Thrombocytopenia: Plan: Platelets remain in the 70s but slightly improved to 79 today No history of thrombocytopenia per records- Likely secondary to sepsis and should improve as infection is being treated and sepsis is resolving Appreciate hematology consultation Fibrinogen is elevated but do not suspect DIC No platelet clumping Follow CBC in the morning (6) Nausea & vomiting: Plan: With nausea and vomiting on 10/21, 10/22 was improved Frequently gets this after taking IV antibiotics Much improved today but would like to convert to oral antibiotics to see if this keeps her from getting nauseated again Zofran as needed Monitor bowel function as she has not had a bowel movement since 10/19-add on senna/docusate No abdominal pain or tenderness (7) Wound infection: Plan: - Chronic stage 3 pressure wounds 2/2 wheelchair bound from spina bifida. - Wound care consulted. Appreciate their input and surgery's The patient's wheelchair from home was present in the room and was observed to be filthy with blood stains and purulent material throughout the cushion in the leg rest Advised replacement of cushion or at a minimum, to be professionally laundered and sterilized. This was discussed with the patient, her , and sister at the bedside 10/21 apparently has since washed the cushion Plan discharge to [facility] facility and change her wheelchair as its not mechanically suitable for hersee detailed physical therapy note. (8) Stage III pressure ulcer: Plan: - Chronic, patient is wheelchair-bound due to congenital spina bifida. Sees wound care clinic frequently. As above - Nystatin ordered for what appears to be fungal dermatitis on breasts. (9) Elevated LFTs: Plan: Remain mildly elevated but improving overall Was likely secondary to shock liver and perhaps some related to antibiotic use i.e. daptomycin -continue to hold home statin -Follow CMP in the morning (10) Hypertension: Plan: Blood pressures are now elevated Okay to restart home amlodipine which was initially held for hypotension (11) Breast cancer: Plan: Diagnosed in March 2022, poor candidate for mastectomy as per oncology Her home anastrozole was not included initially on her home medication reconciliation as it had never been completed prior to 10/23 Updated her home medication reconciliation on 10/23 and restarted home anastrozole 1 mg p.o. daily as per oncology recommendation Follow with oncology as an outpatient (12) Hypernatremia: Plan: 150 at highest and now resolved, down to 145 after D5W and encouraging p.o. free water intake Follow BMP in the morning (13) Hypothyroidism: Plan: TSH here is normal Restart home levothyroxine 50 mcg daily which again was inadvertently left off the home medication reconciliation (14) Heart failure: Plan: Chronic HFpEF Not on any home diuretics. -Remains on telemetry only with brief episode of PAT - Echo 05/16/2021: EF 55-60%. Mild LVH, no wma, left ventricular systolic function is normal. - Monitor volume status, strict I/Os. Curtis in place. Appears euvolemic Need to remove Curtis catheter likely tomorrow (15) History of CVA (cerebrovascular accident): Plan: - Left parietal CVA in 2021, continue aspirin 81 mg daily for secondary prevention. -Holding statin as above for transaminitis (16) Severe obstructive sleep apnea: Plan: - Continue CPAP at night with 2 L NC. Plan DVT prophylaxis Lovenox Disposition-continued stay but downgrade off telemetry, plan is for [facility] facility likely on Tuesday as long as continues to improve Admission and Anticipated Discharge Date Admission Date: October 18, 2022 Subjective Feeling better, looks much better than when I saw her 2 days ago. Feels her nausea is much improved, is eating. Does request amti-emetic prior to getting her antibiotics. Denies SOB, CP, abd pain. Still no BM since 10/19. Tele with NSR normal rates Review of Systems Review of Systems: All systems reviewed & are unremarkable except as noted in HPI & below Physical Exam Constitutional: WD/WN, vitals as above Eyes: + anicteric sclerae Neck: trachea midline, no thyromegaly Respiratory: normal respiratory effort, lungs clear to auscultation Cardiovascular: Rate/Rhythm: regular rate and regular rhythm Heart Sounds: no murmur Extremities: + edema (Lymphedema bilateral lower extremities) Chest (Breasts): Chest: normal inspection of chest Gastrointestinal (Abdomen): normal bowel sounds, soft, nontender, no hepatosplenomegaly Musculoskeletal: Extremities: + extremities abnormal to inspection (With congenitally malformed feet with some toes on the end of legs) Skin: Wounds dressed and not uncovered during exam today Neurologic: moves all extremities, + focal motor deficit (Paralysis of lower extremities, 3/5 strength of RUE chronic) and awake Psychiatric: A+Ox3, euthymic affect Genitourinary: Curtis catheter in place Lymphatic: + lymphedema (Lower extremities) Results & Data Results & Data ([facility]) Vital Signs (Past 12 Hours) Vital Signs Temp Pulse Pulse Resp BP Pulse Ox O2 Del Method 10/23/22 09:00 Nasal Cannula 10/23/22 11:29 36.5 C 74 19 154/81 H 98 Nasal Cannula 10/23/22 08:00 66 10/23/22 07:27 36.5 C 76 19 131/84 92 Room Air 10/23/22 04:56 72 13 95 10/23/22 04:55 36.5 C 67 16 134/73 96 CPAP O2 Flow Rate 10/23/22 09:00 2 10/23/22 11:29 1 10/23/22 08:00 10/23/22 07:27 10/23/22 04:56 2 10/23/22 04:55 Laboratory Results 10/23/22 10/23/22 10/23/22 Range/Units 07:56 07:56 07:56 WBC (4.8-10.8) K/ul RBC (3.93-5.22) M/uL Hgb (12.0-16.0) g/dl Hct (34.1-44.9) % MCV (80.0-100.0) fL MCH (25.0-34.0) pg MCHC (32.0-36.0) g/dL RDW Std Deviation (36.4-46.3) fL RDW Coeff of Deanna (11.5-14.5) % Plt Count (130-400) K/uL MPV (9.4-12.3) fL Immature Gran % (Auto) % Neut % (Auto) % Lymph % (Auto) % Young % (Auto) % Eos % (Auto) % Baso % (Auto) % Reticulocyte % (Auto) (0.5-2.0) % Neut # (Auto) (1.4-6.5) K/uL Lymph # (Auto) (1.2-3.4) K/uL Young # (Auto) (0.24-0.82) K/uL Eos # (Auto) (0-0.50) K/uL Baso # (Auto) (0-0.2) K/uL Reticulocyte # (0.02-0.10) 10^6/uL Immature Gran # (Auto) (0.00-0.02) K/uL Fibrinogen 507 H (184-400) mg/dl Sodium (136-145) mmol/L Potassium (3.5-5.1) mmol/L Chloride (98-107) mmol/L Carbon Dioxide (21-32) mmol/L Anion Gap (3-11) BUN (6-23) mg/dl Creatinine (0.6-1.2) mg/dl Est Cr Clr Drug Dosing ml/min Est GFR ( Amer) ml/min Est GFR (Non-Af Amer) ml/min BUN/Creatinine Ratio (10-20) Glucose (70-99(Fasting)) mg/dl Calcium (8.5-10.1) mg/dl Magnesium (1.7-2.4) mg/dl Ferritin (8-388) ng/ml Lactate Dehydrogenase 209 (86-244) U/L Total Protein (PEP) Pending Albumin (PEP) Pending Sdair-1-Ehvnlnxae Pending Xncqg-7-Kwchzlvir Pending Ifyw-6-Gnupruxp Pending Ynsr-2-Kovowdum Pending Gamma Globulins Pending Monoclonal Peak 3 Pending Ser Monoclonl Protein Pending Ser Monoclonal Prot 2 Pending PEP Interpretation Pending 10/23/22 10/23/22 10/23/22 Range/Units 07:56 07:56 05:42 WBC 4.31 L (4.8-10.8) K/ul RBC 2.93 L (3.93-5.22) M/uL Hgb 8.4 L (12.0-16.0) g/dl Hct 27.2 L (34.1-44.9) % MCV 92.8 (80.0-100.0) fL MCH 28.7 (25.0-34.0) pg MCHC 30.9 L (32.0-36.0) g/dL RDW Std Deviation 61.3 H (36.4-46.3) fL RDW Coeff of Deanna 18.3 H (11.5-14.5) % Plt Count 79 L (130-400) K/uL MPV 11.5 (9.4-12.3) fL Immature Gran % (Auto) 1.9 % Neut % (Auto) 66.0 % Lymph % (Auto) 14.2 % Young % (Auto) 10.4 % Eos % (Auto) 7.0 % Baso % (Auto) 0.5 % Reticulocyte % (Auto) 1.6 (0.5-2.0) % Neut # (Auto) 2.85 (1.4-6.5) K/uL Lymph # (Auto) 0.61 L (1.2-3.4) K/uL Young # (Auto) 0.45 (0.24-0.82) K/uL Eos # (Auto) 0.30 (0-0.50) K/uL Baso # (Auto) 0.02 (0-0.2) K/uL Reticulocyte # 0.05 (0.02-0.10) 10^6/uL Immature Gran # (Auto) 0.08 H (0.00-0.02) K/uL Fibrinogen (184-400) mg/dl Sodium (136-145) mmol/L Potassium (3.5-5.1) mmol/L Chloride (98-107) mmol/L Carbon Dioxide (21-32) mmol/L Anion Gap (3-11) BUN (6-23) mg/dl Creatinine (0.6-1.2) mg/dl Est Cr Clr Drug Dosing ml/min Est GFR ( Amer) ml/min Est GFR (Non-Af Amer) ml/min BUN/Creatinine Ratio (10-20) Glucose (70-99(Fasting)) mg/dl Calcium (8.5-10.1) mg/dl Magnesium (1.7-2.4) mg/dl Ferritin 219.9 (8-388) ng/ml Lactate Dehydrogenase (86-244) U/L Total Protein (PEP) Albumin (PEP) Gprbs-1-Qhhapngbs Xrqgg-9-Ymchrahyz Cphd-8-Yytlodyl Sygq-4-Duwzllyn Gamma Globulins Monoclonal Peak 3 Ser Monoclonl Protein Ser Monoclonal Prot 2 PEP Interpretation 10/23/22 Range/Units 05:42 WBC (4.8-10.8) K/ul RBC (3.93-5.22) M/uL Hgb (12.0-16.0) g/dl Hct (34.1-44.9) % MCV (80.0-100.0) fL MCH (25.0-34.0) pg MCHC (32.0-36.0) g/dL RDW Std Deviation (36.4-46.3) fL RDW Coeff of Deanna (11.5-14.5) % Plt Count (130-400) K/uL MPV (9.4-12.3) fL Immature Gran % (Auto) % Neut % (Auto) % Lymph % (Auto) % Young % (Auto) % Eos % (Auto) % Baso % (Auto) % Reticulocyte % (Auto) (0.5-2.0) % Neut # (Auto) (1.4-6.5) K/uL Lymph # (Auto) (1.2-3.4) K/uL Young # (Auto) (0.24-0.82) K/uL Eos # (Auto) (0-0.50) K/uL Baso # (Auto) (0-0.2) K/uL Reticulocyte # (0.02-0.10) 10^6/uL Immature Gran # (Auto) (0.00-0.02) K/uL Fibrinogen (184-400) mg/dl Sodium 145 (136-145) mmol/L Potassium 3.7 (3.5-5.1) mmol/L Chloride 114 H (98-107) mmol/L Carbon Dioxide 28 (21-32) mmol/L Anion Gap 3 (3-11) BUN 18 (6-23) mg/dl Creatinine 0.39 L (0.6-1.2) mg/dl Est Cr Clr Drug Dosing 138.8 ml/min Est GFR ( Amer) 122.5 ml/min Est GFR (Non-Af Amer) 105.7 ml/min BUN/Creatinine Ratio 46.2 H (10-20) Glucose 77 (70-99(Fasting)) mg/dl Calcium 7.7 L (8.5-10.1) mg/dl Magnesium 1.8 (1.7-2.4) mg/dl Ferritin (8-388) ng/ml Lactate Dehydrogenase (86-244) U/L Total Protein (PEP) Albumin (PEP) Svnip-3-Nravagkhb Aodtc-5-Llvjvgxfa Aosm-8-Ipeoaoiq Qerl-9-Gzxfqtli Gamma Globulins Monoclonal Peak 3 Ser Monoclonl Protein Ser Monoclonal Prot 2 PEP Interpretation PG Care Time/CCT Total # of Minutes Spent Total Time Spent with Patient: Total time spent is greater than 50% in coordination of care (as documented) at patient's floor/unit and/or counseling patient: Coding Level of Care Code 19815 Subseq Hosp Care Lvl 3 Diagnoses Sepsis associated hypotension A41.9; I95.9 Encephalopathy G93.40 Anemia D64.9 Constipation K59.00 Thrombocytopenia D69.6 Nausea & vomiting R11.2 Wound infection T14.8XXA; L08.9 Stage III pressure ulcer L89.93 Elevated LFTs R79.89 Hypertension I10 Hypertension type: primary hypertension Breast cancer C50.919 Hypernatremia E87.0 Hypothyroidism E03.9 Heart failure I50.9 History of CVA (cerebrovascular accident) Z86.73 Severe obstructive sleep apnea G47.33 (1) Hypertension Hypertension type: primary hypertension Qualified Code(s): I10 - Essential (primary) hypertension
[2022-10-23] MEDS ORDERED: PROCHLORPERAZINE 5 MG in SYRINGE 4 ML IV ONE (16:00)
[2022-10-23] MEDS: DOCUSATE SODIUM/SENNA 50/8.6MG TAB PO SCH (16:23)
[2022-10-23] MEDS: ENOXAPARIN INJ 40 MG/0.4 ML SYR SQ SCH (16:23)
[2022-10-23] MEDS: cefTRIAXone SODIUM 2,000 MG in DEXTROSE 5% 50 ML IV SCH (16:48)
[2022-10-23] MEDS: CEFDINIR 300 MG CAP PO SCH (18:06)
[2022-10-24] MEDS: LEVOTHYROXINE SODIUM 50 MCG TABLET PO SCH (05:55)
--- NOTE | 2022-10-24 07:31 | Hematology/Oncology Prog Note ---
Date of Service October 24, 2022 Assessment & Plan (1) Pancytopenia: (2) Breast cancer: (3) Sepsis: Plan - Labs from today pending. LDH, haptoglobin, reticulocyte count checked yesterday all WNL and not suggestive of hemolysis.Fibrinogen also high so no evidence of DIC. SPEP pending -Expect WBC and platelet count to normalize with time since infection appears to be resolving. Also expect hemoglobin to return to prior baseline of between 9- 10. Continue daily CBC -Continue with anastrozole for breast cancer. -She is scheduled to follow-up with me in clinic in about 5 weeks. Admission and Anticipated Discharge Date Admission Date: October 18, 2022 Subjective No acute events Results & Data ([facility]) Vital Signs (Past 12 Hours) Vital Signs Temp Pulse Resp BP Pulse Ox O2 Del Method 10/23/22 22:38 36.7 C 90 18 147/81 H 92 Room Air (1) Sepsis Sepsis type: sepsis due to unspecified organism Qualified Code(s): A41.9 - S epsis, unspecified organism
[2022-10-24] MEDS: COLLAGENASE OINT 30 GM TUBE EXT SCH (08:50)
[2022-10-24] MEDS: ANASTROZOLE 1 MG TAB PO SCH (08:51)
[2022-10-24] MEDS: amLODIPine BESYLATE 5 MG TAB PO SCH (08:51)
[2022-10-24] MEDS: ASPIRIN 81 MG ECTAB PO SCH (08:52)
[2022-10-24] MEDS: PANTOprazole 40 MG TAB PO SCH (08:52)
[2022-10-24] MEDS: DOCUSATE SODIUM/SENNA 50/8.6MG TAB PO SCH (08:52)
[2022-10-24] MEDS: CEFDINIR 300 MG CAP PO SCH ×2 (08:52→20:01)
[2022-10-24 09:00] LABS: Hematocrit (blood only) 27.4 % (34.1-44.9); Hemoglobin 8.6 g/dl (12.0-16.0); Mean Corpuscular Hemoglobin 29.1 pg (25.0-34.0); Mean Corpuscular Hgb Conc 31.4 g/dL (32.0-36.0); Mean Corpuscular Volume 92.6 fL (80.0-100.0); Mean Platelet Volume 11.4 fL (9.4-12.3); Platelet Count 103 K/uL (130-400); RDW Coefficient of Variation 18.6 % (11.5-14.5); RDW Standard Deviation 61.8 fL (36.4-46.3); Red Blood Count 2.96 M/uL (3.93-5.22); White Blood Count 4.69 K/ul (4.8-10.8)
[2022-10-24 09:33] LABS: Albumin Level 2.8 gm/dl (3.4-5.0); BUN Creatinine Ratio 44.1 (10-20); Bilirubin,Total 0.5 mg/dl (0.2-1.0); C Reactive Protein 4.08 mg/dl (0-0.5); Calcium 7.9 mg/dl (8.5-10.1); Creatinine Clr Calc Pharmacy 159.2 ml/min; Est GFR (African American) 128.1 ml/min; Est GFR (Non-African American) 110.5 ml/min; Globulin 2.8 gm/dl (2.5-4.0); Magnesium 1.8 mg/dl (1.7-2.4); Total Protein 5.6 gm/dl (6.0-8.3)
[2022-10-24 10:09] LABS: Basophils # (auto) 0.04 K/uL (0-0.2); Basophils % (auto) 0.9 %; Eosinophils % (auto) 6.4 %; Immature Granulocytes # (auto) 0.12 K/uL (0.00-0.02); Immature Granulocytes % (auto) 2.6 %; Lymphocytes # (auto) 1.53 K/uL (1.2-3.4); Lymphocytes % (auto) 32.6 %; Monocytes # (auto) 0.47 K/uL (0.24-0.82); Neutrophils # (auto) 2.23 K/uL (1.4-6.5); Neutrophils % (auto) 47.5 %
[2022-10-24] MEDS: NYSTATIN POWDER 15GM BTL EXT SCH ×2 (10:17→20:01)
--- NOTE | 2022-10-24 14:22 | Hospitalist Progress Note ---
Date of Service October 24, 2022 Assessment & Plan (1) Sepsis associated hypotension: Plan: Presented with hypothermia, hypotension, and acute encephalopathy secondary to wound infection on lower extremity with surrounding erythema Right leg posterior wound status post debridement by general surgery Wound cultures growing Proteus vulgaris and MSSA from right leg and MSSA and corynebacterium on left leg Blood cultures remain no growth to date Sepsis now resolved and doing very well. Appreciate ID recommendations- -was treated with broad-spectrum antibiotics and then converted to ceftriaxone, then transitioned to cefdinir twice daily on 10/23-last day of therapy will be 10/27 for total of 10 days Continue local wound care Leukopenia and thrombocytopenia associated with sepsis both improving-follow CBC Acute encephalopathy secondary to sepsis-resolved (2) Encephalopathy: Plan: Metabolicsecondary to significant hypernatremia and also has sepsis. 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 (3) Anemia: Plan: Hemoglobin remains low at 8.4 and stable from previous Seen by hematology Transferrin saturation normal at 27%, ferritin 219, B12 and folate normal at 733 and 17, respectively TSH normal at 3.2 Hematology recommended SPEP which is pending No evidence of hemolysis with normal total bilirubin and normal LDH, reticulocyte count is normal Follow CBC Most likely anemia of chronic disease Follow-up with hematology as an outpatient (4) Constipation: Plan: Ongoing Continue senna/docusate Add on MiraLAX Last bowel movement 10/19 Nausea now improved (5) Thrombocytopenia: Plan: Platelets dropped down into the 70s, but now finally improving to 105 No history of thrombocytopenia Likely secondary to sepsis and now improving as infection is being treated and sepsis is resolved Appreciate hematology consultation Fibrinogen is elevated -do not suspect DIC No platelet clumping Follow CBC again in the morning (6) Nausea & vomiting: Plan: With nausea and vomiting on 10/21-now resolved on 10/24 Frequently gets this after taking IV antibiotics Zofran as needed Monitor bowel function as she has not had a bowel movement since 10/19-bowel regimen No abdominal pain or tenderness (7) Wound infection: Plan: - Chronic stage 3 pressure wounds 2/2 wheelchair bound from spina bifida. - Wound care consulted. Appreciate their input and surgery's The patient's wheelchair from home was present in the room and was observed to be filthy with blood stains and purulent material throughout the cushion in the leg rest Advised replacement of cushion or at a minimum, to be professionally laundered and sterilized. This was discussed with the patient, her , and sister at the bedside 10/21 apparently has since washed the cushion Plan discharge to alf facility and change her wheelchair as its not mechanically suitable for hersee detailed physical therapy note. (8) Stage III pressure ulcer: Plan: - Chronic, patient is wheelchair-bound due to congenital spina bifida. Sees wound care clinic frequently. As above - Nystatin ordered for what appears to be fungal dermatitis on breasts. (9) Elevated LFTs: Plan: Were improving, but now going back up again. Initially thought to be from shock liver Total bilirubin normal No abdominal pains or tenderness Was previously on daptomycin which has now been held -Follow LFTs and CPK in the morning -continue to hold home statin (10) Hypertension: Plan: Blood pressures remain mildly elevated Recently started amlodipine back on 10/24 after being held for hypotension (11) Breast cancer: Plan: Diagnosed in March 2022, poor candidate for mastectomy as per oncology -Continue home anastrozole 1 mg p.o. daily as per oncology recommendation Follow with oncology as an outpatient (12) Hypernatremia: Plan: 150 at highest and now resolved, down to normal after D5W and encouraging p.o. free water intake Follow BMP in the morning (13) Hypothyroidism: Plan: TSH here is normal Continue home levothyroxine 50 mcg daily (14) Heart failure: Plan: Chronic HFpEF Not on any home diuretics. No events on telemetry - Echo 05/16/2021: EF 55-60%. Mild LVH, no wma, left ventricular systolic function is normal. - Monitor volume status, strict I/Os. Curtis in place. Appears euvolemic Discontinue Curtis cath today (15) History of CVA (cerebrovascular accident): Plan: - Left parietal CVA in 2020, continue aspirin 81 mg daily for secondary prevention. -Holding statin as above for transaminitis (16) Severe obstructive sleep apnea: Plan: - Continue CPAP at night with 2 L NC. Plan DVT prophylaxis Lovenox Disposition-continued stay but significantly improved overall. Plan is for alf facility when bed is available. Referrals have been made to [facility]. Admission and Anticipated Discharge Date Admission Date: October 18, 2022 Subjective Patient feeling well. Has no pain or complaints, no shortness of breath. No further nausea and is eating better today. Still no bowel movement. Review of Systems Review of Systems: All systems reviewed & are unremarkable except as noted in HPI & below Physical Exam Constitutional: WD/WN, vitals as above Eyes: + anicteric sclerae Neck: trachea midline, no thyromegaly Respiratory: normal respiratory effort, lungs clear to auscultation Cardiovascular: Rate/Rhythm: regular rate and regular rhythm Heart Sounds: no murmur Extremities: + edema (Lymphedema bilateral lower extremities) Chest (Breasts): Chest: normal inspection of chest Gastrointestinal (Abdomen): normal bowel sounds, soft, nontender, no hepatosplenomegaly Musculoskeletal: Extremities: + extremities abnormal to inspection (With congenitally malformed feet with some toes on the end of legs) Skin: Wounds on lumbar region, posterior and lateral right lower extremity covered and dressings not removed Neurologic: moves all extremities, + focal motor deficit (Paralysis of lower extremities, 3/5 strength of RUE chronic) and awake Psychiatric: A+Ox3, euthymic affect Lymphatic: + lymphedema (Lower extremities) Results & Data Results & Data ([facility]) Vital Signs (Past 12 Hours) Vital Signs Temp Pulse Resp BP Pulse Ox O2 Del Method 10/24/22 07:51 36.8 C 85 16 145/74 H 92 Room Air Laboratory Results 10/24/22 10/24/22 Range/Units 07:30 07:30 WBC 4.69 L (4.8-10.8) K/ul RBC 2.96 L (3.93-5.22) M/uL Hgb 8.6 L (12.0-16.0) g/dl Hct 27.4 L (34.1-44.9) % MCV 92.6 (80.0-100.0) fL MCH 29.1 (25.0-34.0) pg MCHC 31.4 L (32.0-36.0) g/dL RDW Std Deviation 61.8 H (36.4-46.3) fL RDW Coeff of Deanna 18.6 H (11.5-14.5) % Plt Count 103 L (130-400) K/uL MPV 11.4 (9.4-12.3) fL Immature Gran % (Auto) 2.6 % Neut % (Auto) 47.5 % Lymph % (Auto) 32.6 % [place] % (Auto) 10.0 % Eos % (Auto) 6.4 % Baso % (Auto) 0.9 % Neut # (Auto) 2.23 (1.4-6.5) K/uL Lymph # (Auto) 1.53 (1.2-3.4) K/uL [place] # (Auto) 0.47 (0.24-0.82) K/uL Eos # (Auto) 0.30 (0-0.50) K/uL Baso # (Auto) 0.04 (0-0.2) K/uL Immature Gran # (Auto) 0.12 H (0.00-0.02) K/uL Sodium 144 (136-145) mmol/L Potassium 4.0 (3.5-5.1) mmol/L Chloride 112 H (98-107) mmol/L Carbon Dioxide 30 (21-32) mmol/L Anion Gap 2 L (3-11) BUN 15 (6-23) mg/dl Creatinine 0.34 L (0.6-1.2) mg/dl Est Cr Clr Drug Dosing 159.2 ml/min Est GFR ( Amer) 128.1 ml/min Est GFR (Non-Af Amer) 110.5 ml/min BUN/Creatinine Ratio 44.1 H (10-20) Glucose 71 (70-99(Fasting)) mg/dl Calcium 7.9 L (8.5-10.1) mg/dl Magnesium 1.8 (1.7-2.4) mg/dl Total Bilirubin 0.5 (0.2-1.0) mg/dl AST 131 H (13-39) U/L ALT 129 H (7-52) U/L Alkaline Phosphatase 284 H (34-104) U/L C-Reactive Protein 4.08 H (0-0.5) mg/dl Total Protein 5.6 L (6.0-8.3) gm/dl Albumin 2.8 L (3.4-5.0) gm/dl Globulin 2.8 (2.5-4.0) gm/dl Albumin/Globulin Ratio 1.0 (0.9-2) PG Care Time/CCT Total # of Minutes Spent Total Time Spent with Patient: Total time spent is greater than 50% in coordination of care (as documented) at patient's floor/unit and/or counseling patient: Coding Level of Care Code 45659 Subseq Hosp Care Lvl 2 Diagnoses Sepsis associated hypotension A41.9; I95.9 Encephalopathy G93.40 Anemia D64.9 Constipation K59.00 Thrombocytopenia D69.6 Nausea & vomiting R11.2 Wound infection T14.8XXA; L08.9 Stage III pressure ulcer L89.93 Elevated LFTs R79.89 Hypertension I10 Hypertension type: primary hypertension Breast cancer C50.919 Hypernatremia E87.0 Hypothyroidism E03.9 Heart failure I50.9 History of CVA (cerebrovascular accident) Z86.73 Severe obstructive sleep apnea G47.33 (1) Hypertension Hypertension type: primary hypertension Qualified Code(s): I10 - Essential (primary) hypertension
[2022-10-24] MEDS: ENOXAPARIN INJ 40 MG/0.4 ML SYR SQ SCH (16:06)
[2022-10-24] MEDS: POLYETHYLENE (MIRALAX) 17 GM PACK PO SCH (16:06)
[2022-10-25] MEDS: LEVOTHYROXINE SODIUM 50 MCG TABLET PO SCH (05:55)
[2022-10-25 07:51] LABS: Hemoglobin 8.3 g/dl (12.0-16.0); Mean Corpuscular Hemoglobin 29.2 pg (25.0-34.0); Mean Corpuscular Hgb Conc 31.9 g/dL (32.0-36.0); Mean Corpuscular Volume 91.5 fL (80.0-100.0); Mean Platelet Volume 11.6 fL (9.4-12.3); Platelet Count 134 K/uL (130-400); RDW Coefficient of Variation 18.4 % (11.5-14.5); RDW Standard Deviation 59.7 fL (36.4-46.3); Red Blood Count 2.84 M/uL (3.93-5.22); White Blood Count 5.43 K/ul (4.8-10.8)
[2022-10-25 08:08] LABS: Albumin Level 2.8 gm/dl (3.4-5.0); BUN Creatinine Ratio 55.2 (10-20); Bilirubin,Total 0.5 mg/dl (0.2-1.0); Calcium 8.1 mg/dl (8.5-10.1); Creatinine Clr Calc Pharmacy 186.7 ml/min; Est GFR (Non-African American) 116.5 ml/min; Globulin 2.8 gm/dl (2.5-4.0); Potassium 4.1 mmol/L (3.5-5.1); Total Protein 5.6 gm/dl (6.0-8.3)
[2022-10-25 08:09] LABS: Basophils # (auto) 0.04 K/uL (0-0.2); Basophils % (auto) 0.7 %; Eosinophils # (auto) 0.32 K/uL (0-0.50); Eosinophils % (auto) 5.9 %; Giant Platelets 1+; Immature Granulocytes # (auto) 0.17 K/uL (0.00-0.02); Immature Granulocytes % (auto) 3.1 %; Lymphocytes # (auto) 2.09 K/uL (1.2-3.4); Lymphocytes % (auto) 38.5 %; Monocytes # (auto) 0.48 K/uL (0.24-0.82); Monocytes % (auto) 8.8 %; Neutrophils # (auto) 2.33 K/uL (1.4-6.5)
[2022-10-25] MEDS: ASPIRIN 81 MG ECTAB PO SCH (08:32)
[2022-10-25] MEDS: amLODIPine BESYLATE 5 MG TAB PO SCH (08:32)
[2022-10-25] MEDS: ANASTROZOLE 1 MG TAB PO SCH (08:32)
[2022-10-25] MEDS: CEFDINIR 300 MG CAP PO SCH ×2 (08:32→19:56)
[2022-10-25] MEDS: PANTOprazole 40 MG TAB PO SCH (08:33)
[2022-10-25] MEDS: NYSTATIN POWDER 15GM BTL EXT SCH ×2 (08:33→19:54)
[2022-10-25] MEDS: POLYETHYLENE (MIRALAX) 17 GM PACK PO SCH (08:33)
[2022-10-25] MEDS: COLLAGENASE OINT 30 GM TUBE EXT SCH (08:34)
[2022-10-25] MEDS: DOCUSATE SODIUM/SENNA 50/8.6MG TAB PO SCH ×2 (08:37→19:55)
--- NOTE | 2022-10-25 11:43 | Infectious Disease Progress Nt ---
Date of Service October 25, 2022 24 hours: JENN Patient is on Cefdinir Assessment & Plan (1) Ulcers of both lower extremities: (2) Hypothermia: (3) Encephalopathy: Plan 72yF with a PMH of spina bifida wheel chair bound, L parietal CVA, CAD, known pressure ulcers of lower extremity with lymphedema for which she sees wound care admitted to [facility] on 10/18 with hypothermia and hypotension likely secondary to LE wound infections s/p debridement on 10/19. Infectious Diseases has been consulted for antibiotic management of wound infections. On admission she was found to be hypothermic and hypotensive, ithout tachycardia or hypoxia. Labs notable for WBC 4.62, Hgb 10.6, AST 92, ALT 94, alk phos 144. 10/18 Blood cultures drawn and NGTD. CXR showed cardiomegaly without acute cardiopulmonary process. Empirically started on Daptomycin and Cefepime. 10/19 R leg wound culture growing MSSA and Corynebacterium, L leg wound culture growing MSSA and Proteus species, I Zosyn . She underwent inferior right lower extremity wound debridement by surgery on 10/19. Wound images reviewed. Today, she feels better, VS improved and WBC improved. Her LLE erythema appears stable and likely to be candidiasis. Discussion: Patient is being treated for cellulitis secondary to superficial LE wounds. Blood cultures are NGTD and WBC is normalizing (she was slightly leukopenic). She presented with hypothermia, hypotension, now better. Her LFTs are also elevated (higher than her typical elevation). Her wound cultures are growing MSSA and proteus, these are superficial and while we dont typically base abx off of these, she isnt growing any MDR infection and Ceftriaxone she was changed to Cefdinir and continues to improve anticipate treatment for 10 days total with po Cefdinir 300mg po BID through 10/27. Overall HD stable, Labs WBC, platelets have improved. Recommend -C/W Cefdinir as above and treat for 10 days total from admission (10/18-10/27) -Please apply Nystatin to LLE erythematous area I will speak to Dr. Card today regarding these recommendations. Thank you for allowing me to participate in the care of your patient. ID will s/o, but please page me with any questions. Dianne Carrillo MD [facility], [facility] Admission and Anticipated Discharge Date Admission Date: October 18, 2022 Subjective Subsequent visit was provided via telemedicine using two-way real-time interactive telecommunication between the patient and the telemedicine provider. For the duration of the visit, the provider was performing the assessment from a different facility than the patient. This includesuse of bluetooth stethoscope forauscultationperformed by the telepresenter that the telemedicine provider can hear if described in the physical exam. [employer] Manager contact information: Please call [facility] Call Center [phone]. (Phone Number For Physician Use Only) After establishing a telemedicine visit, patient was: Patient was verified with two unique identifiers, Patient/authorized rep acknowledged consent and understanding and Gave permission to continue telehealth session Feeling well. at bedside Tolerating orals. No fevers/chills/diarrhea Physical Exam Constitutional: WD/WN, vitals as above Gastrointestinal (Abdomen): normal bowel sounds, soft, nontender, no hepatosplenomegaly Skin: L leg erythema, stable, sloughing improved R leg wounds clean/no discharge Results & Data ([facility]) Vital Signs (Past 12 Hours) Vital Signs Temp Pulse Resp BP Pulse Ox O2 Del Method O2 Flow Rate 10/25/22 07:28 36.6 C 76 16 150/74 H 94 Nasal Cannula 2 Laboratory Results Laboratory Results - last 48 hr 10/24/22 10/24/22 10/25/22 07:30 07:30 07:16 WBC 4.69 L 5.43 RBC 2.96 L 2.84 L Hgb 8.6 L 8.3 L Hct 27.4 L 26.0 L MCV 92.6 91.5 MCH 29.1 29.2 MCHC 31.4 L 31.9 L RDW Std Deviation 61.8 H 59.7 H RDW Coeff of Deanna 18.6 H 18.4 H Plt Count 103 L 134 MPV 11.4 11.6 Immature Gran % (Auto) 2.6 3.1 Neut % (Auto) 47.5 43.0 Lymph % (Auto) 32.6 38.5 [place] % (Auto) 10.0 8.8 Eos % (Auto) 6.4 5.9 Baso % (Auto) 0.9 0.7 Neut # (Auto) 2.23 2.33 Lymph # (Auto) 1.53 2.09 [place] # (Auto) 0.47 0.48 Eos # (Auto) 0.30 0.32 Baso # (Auto) 0.04 0.04 Immature Gran # (Auto) 0.12 H 0.17 H Giant Platelets 1+ Sodium 144 Potassium 4.0 Chloride 112 H Carbon Dioxide 30 Anion Gap 2 L BUN 15 Creatinine 0.34 L Est Cr Clr Drug Dosing 159.2 Est GFR ( Amer) 128.1 Est GFR (Non-Af Amer) 110.5 BUN/Creatinine Ratio 44.1 H Glucose 71 Calcium 7.9 L Magnesium 1.8 Total Bilirubin 0.5 AST 131 H ALT 129 H Alkaline Phosphatase 284 H Total Creatine Kinase C-Reactive Protein 4.08 H Total Protein 5.6 L Albumin 2.8 L Globulin 2.8 Albumin/Globulin Ratio 1.0 10/25/22 07:16 WBC RBC Hgb Hct MCV MCH MCHC RDW Std Deviation RDW Coeff of Deanna Plt Count MPV Immature Gran % (Auto) Neut % (Auto) Lymph % (Auto) [place] % (Auto) Eos % (Auto) Baso % (Auto) Neut # (Auto) Lymph # (Auto) [place] # (Auto) Eos # (Auto) Baso # (Auto) Immature Gran # (Auto) Giant Platelets Sodium 143 Potassium 4.1 Chloride 110 H Carbon Dioxide 32 Anion Gap 1 L BUN 16 Creatinine 0.29 L Est Cr Clr Drug Dosing 186.7 Est GFR ( Amer) 135.0 Est GFR (Non-Af Amer) 116.5 BUN/Creatinine Ratio 55.2 H Glucose 86 Calcium 8.1 L Magnesium Total Bilirubin 0.5 AST 79 H ALT 107 H Alkaline Phosphatase 272 H Total Creatine Kinase 21 L C-Reactive Protein Total Protein 5.6 L Albumin 2.8 L Globulin 2.8 Albumin/Globulin Ratio 1.0 Medications Administered Current Inpatient Medications Acetaminophen (Acetaminophen 325 Mg Tab) 650 mg PO Q4H PRN PRN Reason: Pain or Fever Stop: 11/17/22 15:29 Al Hydrox/Mg Hydrox/Simethicone (Aluminum/Magnesium Susp 30 Ml Udc) 15 ml PO Q4H PRN PRN Reason: Dyspepsia Stop: 11/17/22 15:29 Albuterol (Albuterol Hfa 8 Gm Inhaler) 2 puffs INH Q6R PRN PRN Reason: Shortness Of Breath Or Wheezing Stop: 11/17/22 15:29 Amlodipine Besylate (Amlodipine Besylate 5 Mg Tab) 5 mg PO QAM POLLY Stop: 11/23/22 08:59 Last Admin: 10/25/22 08:32 Dose: 5 mg Anastrozole (Anastrozole 1 Mg Tab) 1 mg PO DAILY POLLY Stop: 11/22/22 08:59 Last Admin: 10/25/22 08:32 Dose: 1 mg Aspirin (Aspirin 81 Mg Ectab) 81 mg PO QAM POLLY Stop: 11/18/22 08:59 Last Admin: 10/25/22 08:32 Dose: 81 mg Cefdinir (Cefdinir 300 Mg Cap) 300 mg PO BID POLLY Stop: 10/30/22 16:54 Last Admin: 10/25/22 08:32 Dose: 300 mg Collagenase (Collagenase Oint 30 Gm Tube) 1 appln EXT DAILY POLLY Stop: 11/19/22 08:59 Last Admin: 10/25/22 08:34 Dose: 1 appln Enoxaparin Sodium (Enoxaparin Inj 40 Mg/0.4 Ml Syr) 40 mg SQ Q24H POLLY Stop: 11/17/22 15:59 Last Admin: 10/24/22 16:06 Dose: 40 mg Levothyroxine Sodium (Levothyroxine Sodium 50 Mcg Tablet) 50 mcg PO DAILYBB POLLY Stop: 11/22/22 08:59 Last Admin: 10/25/22 05:55 Dose: 50 mcg Nystatin (Nystatin Powder 15gm Btl) 1 appln EXT BID POLLY Stop: 11/17/22 20:59 Last Admin: 10/25/22 08:33 Dose: 1 appln Ondansetron HCl (Ondansetron Inj 2 Mg/Ml 2 Ml Vial) 4 mg IV Q6H PRN PRN Reason: Nausea Stop: 11/17/22 15:29 Last Admin: 10/22/22 16:53 Dose: 4 mg Pantoprazole Sodium (Pantoprazole 40 Mg Tab) 40 mg PO DAILY POLLY Stop: 11/18/22 08:59 Last Admin: 10/25/22 08:33 Dose: 40 mg Polyethylene Glycol (Polyethylene (Miralax) 17 Gm Pack) 17 gm PO DAILY POLLY Stop: 11/23/22 15:14 Last Admin: 10/25/22 08:33 Dose: 17 gm Senna/Docusate Sodium (Docusate Sodium/Senna 50/8.6mg Tab) 1 tab PO QAM [facility] Stop: 11/22/22 15:59 Last Admin: 10/25/22 08:37 Dose: 1 tab
--- NOTE | 2022-10-25 15:25 | Hospitalist Progress Note ---
Date of Service October 25, 2022 Assessment & Plan (1) Sepsis associated hypotension: Plan: Presented with hypothermia, hypotension, and acute encephalopathy secondary to wound infection on lower extremity with surrounding erythema Right leg posterior wound status post debridement by general surgery Wound cultures growing Proteus vulgaris and MSSA from right leg and MSSA and corynebacterium on left leg Blood cultures remain no growth to date Sepsis now resolved and doing very well. Appreciate ID recommendations- -was treated with broad-spectrum antibiotics and then converted to ceftriaxone, then transitioned to cefdinir twice daily on 10/23-last day of therapy will be 10/27 for total of 10 days Continue local wound care ID recommends adding on Nystatin cream bid for Candidal rash on LLE Leukopenia and thrombocytopenia associated with sepsis both improving/resolved- follow CBC Acute encephalopathy secondary to sepsis-resolved (2) Encephalopathy: Plan: Metabolicsecondary to significant hypernatremia and also has sepsis. 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 (3) Anemia: Plan: Hemoglobin remains low at 8.4 and stable from previous Seen by hematology Transferrin saturation normal at 27%, ferritin 219, B12 and folate normal at 733 and 17, respectively TSH normal at 3.2 Hematology recommended SPEP which is still pending No evidence of hemolysis with normal total bilirubin and normal LDH, reticulocyte count is normal Follow CBC Most likely anemia of chronic disease Follow-up with hematology as an outpatient (4) Constipation: Plan: Ongoing but finally had some small hard stools on 10/24 nighttime Continue senna/docusate and increase to bid Continue daily MiraLAX add on MOM x 1 now (5) Thrombocytopenia: Plan: Platelets dropped down into the 70s, but now finally normalized No previous history of thrombocytopenia Likely secondary to sepsis and now resolved as infection is being treated and sepsis is resolved Appreciate hematology consultation Fibrinogen is elevated -do not suspect DIC No platelet clumping Follow CBC again in the morning (6) Nausea & vomiting: Plan: With nausea and vomiting on 10/21-now resolved on 10/24 Frequently gets this after taking IV antibiotics Zofran as needed Monitor bowel function as she has had constipationas above No abdominal pain or tenderness (7) Wound infection: Plan: - Chronic stage 3 pressure wounds 2/2 wheelchair bound from spina bifida. - Wound care consulted. Appreciate their input and surgery's The patient's wheelchair from home was present in the room and was observed to be filthy with blood stains and purulent material throughout the cushion in the leg rest Advised replacement of cushion or at a minimum, to be professionally laundered and sterilized. This was discussed with the patient, her , and sister at the bedside 10/21 apparently has since washed the cushion Plan [facility] and change her wheelchair as its not mechanically suitable for hersee detailed physical therapy note. (8) Stage III pressure ulcer: Plan: - Chronic, patient is wheelchair-bound due to congenital spina bifida. Sees wound care clinic frequently. As above - Nystatin ordered for what appears to be fungal dermatitis on breasts as well as on LLE (9) Elevated LFTs: Plan: Initially thought to be from shock liver Total bilirubin normal Now finally improving CK normal No abdominal pains or tenderness Was previously on daptomycin which has now been held -Follow LFTs in the morning -continue to hold home statin (10) Hypertension: Plan: Blood pressures remain mildly elevated Recently started amlodipine back on 10/24 after being held for hypotension (11) Breast cancer: Plan: Diagnosed in March 2022, poor candidate for mastectomy as per oncology -Continue home anastrozole 1 mg p.o. daily as per oncology recommendation Follow with oncology as an outpatient (12) Hypernatremia: Plan: 150 at highest and now resolved, down to normal after D5W and encouraging p.o. free water intake Follow BMP in the morning (13) Hypothyroidism: Plan: TSH here is normal Continue home levothyroxine 50 mcg daily (14) Heart failure: Plan: Chronic HFpEF Not on any home diuretics. No events on telemetry - Echo 05/16/2021: EF 55-60%. Mild LVH, no wma, left ventricular systolic function is normal. - Monitor volume status, strict I/Os. Curtis in place. Appears euvolemic Discontinued Curtis cath 10/24 and having some intermittent elevated PVRs continue to monitor for retention (15) History of CVA (cerebrovascular accident): Plan: - Left parietal CVA in 2020, continue aspirin 81 mg daily for secondary prevention. -Holding statin as above for transaminitis (16) Severe obstructive sleep apnea: Plan: - Continue CPAP at night with 2 L NC. Plan DVT prophylaxis Lovenox Disposition-Medically stable for discharge but awaiting SNF placement Referrals have been made to [facility]. Admission and Anticipated Discharge Date Admission Date: October 18, 2022 Subjective Pt feeling well, no further nausea, is eating well. Finally had some dry hard stool that passed overnight but pt was not aware of this. No abd pain No CP,SOB. Review of Systems Review of Systems: All systems reviewed & are unremarkable except as noted in HPI & below Physical Exam Constitutional: WD/WN, vitals as above Eyes: + anicteric sclerae Neck: trachea midline, no thyromegaly Respiratory: normal respiratory effort, lungs clear to auscultation Cardiovascular: Rate/Rhythm: regular rate and regular rhythm Heart Sounds: no murmur Extremities: + edema (Lymphedema bilateral lower extremities) Chest (Breasts): Chest: normal inspection of chest Gastrointestinal (Abdomen): normal bowel sounds, soft, nontender, no hepatosplenomegaly Musculoskeletal: Extremities: + extremities abnormal to inspection (With con genitally malformed feet with some toes on the end of legs) Neurologic: awake Psychiatric: A+Ox3, euthymic affect Lymphatic: + lymphedema (Lower extremities) Results & Data Results & Data ([facility]) Vital Signs (Past 12 Hours) Vital Signs Temp Pulse Resp BP Pulse Ox O2 Del Method O2 Flow Rate 10/25/22 14:17 36.6 C 80 16 155/72 H 94 Nasal Cannula 1 10/25/22 08:00 Room Air 10/25/22 07:28 36.6 C 76 16 150/74 H 94 Nasal Cannula 2 PG Care Time/CCT Total # of Minutes Spent Total Time Spent with Patient: Total time spent is greater than 50% in coordination of care (as documented) at patient's floor/unit and/or counseling patient: Coding Level of Care Code 89296 Subseq Hosp Care Lvl 2 Diagnoses Sepsis associated hypotension A41.9; I95.9 Encephalopathy G93.40 Anemia D64.9 Constipation K59.00 Thrombocytopenia D69.6 Nausea & vomiting R11.2 Wound infection T14.8XXA; L08.9 Stage III pressure ulcer L89.93 Elevated LFTs R79.89 Hypertension I10 Hypertension type: primary hypertension Breast cancer C50.919 Hypernatremia E87.0 Hypothyroidism E03.9 Heart failure I50.9 History of CVA (cerebrovascular accident) Z86.73 Severe obstructive sleep apnea G47.33 (1) Hypertension Hypertension type: primary hypertension Qualified Code(s): I10 - Essential (primary) hypertension
[2022-10-25] MEDS ORDERED: MAGNESIUM HYDROXIDE SUSP 30 ML UDC PO ONE (15:26)
[2022-10-25] MEDS: ENOXAPARIN INJ 40 MG/0.4 ML SYR SQ SCH (17:07)
[2022-10-25] MEDS: NYSTATIN CR 15 GM TUBE EXT SCH ×2 (17:31→19:58)
[2022-10-26] MEDS: LEVOTHYROXINE SODIUM 50 MCG TABLET PO SCH (06:31)
[2022-10-26] MEDS: DOCUSATE SODIUM/SENNA 50/8.6MG TAB PO SCH ×2 (09:00→20:59)
[2022-10-26] MEDS: ASPIRIN 81 MG ECTAB PO SCH (09:00)
[2022-10-26] MEDS: ANASTROZOLE 1 MG TAB PO SCH (09:00)
[2022-10-26] MEDS: CEFDINIR 300 MG CAP PO SCH ×2 (09:00→20:59)
[2022-10-26] MEDS: amLODIPine BESYLATE 5 MG TAB PO SCH (09:00)
[2022-10-26] MEDS: PANTOprazole 40 MG TAB PO SCH (09:00)
[2022-10-26] MEDS: COLLAGENASE OINT 30 GM TUBE EXT SCH (09:01)
[2022-10-26] MEDS: NYSTATIN POWDER 15GM BTL EXT SCH ×2 (09:01→21:00)
[2022-10-26] MEDS: NYSTATIN CR 15 GM TUBE EXT SCH ×2 (09:01→20:59)
[2022-10-26] MEDS: POLYETHYLENE (MIRALAX) 17 GM PACK PO SCH (09:02)
[2022-10-26 10:35] LABS: Basophils # (auto) 0.04 K/uL (0-0.2); Basophils % (auto) 0.5 %; Eosinophils # (auto) 0.35 K/uL (0-0.50); Eosinophils % (auto) 4.5 %; Hematocrit (blood only) 27.2 % (34.1-44.9); Hemoglobin 8.7 g/dl (12.0-16.0); Immature Granulocytes # (auto) 0.23 K/uL (0.00-0.02); Immature Granulocytes % (auto) 2.9 %; Lymphocytes % (auto) 25.4 %; Mean Corpuscular Hemoglobin 29.1 pg (25.0-34.0); Mean Platelet Volume 11.5 fL (9.4-12.3); Monocytes # (auto) 0.39 K/uL (0.24-0.82); Neutrophils # (auto) 4.85 K/uL (1.4-6.5); Neutrophils % (auto) 61.7 %; Platelet Count 182 K/uL (130-400); RDW Coefficient of Variation 18.6 % (11.5-14.5); RDW Standard Deviation 58.9 fL (36.4-46.3); Red Blood Count 2.99 M/uL (3.93-5.22); White Blood Count 7.86 K/ul (4.8-10.8)
[2022-10-26 11:03] LABS: BUN Creatinine Ratio 46.5 (10-20); Bilirubin,Total 0.5 mg/dl (0.2-1.0); Calcium 8.4 mg/dl (8.5-10.1); Creatinine Clr Calc Pharmacy 125.9 ml/min; Est GFR (African American) 118.6 ml/min; Est GFR (Non-African American) 102.3 ml/min; Magnesium 1.8 mg/dl (1.7-2.4); Potassium 4.3 mmol/L (3.5-5.1)
[2022-10-26] MEDS ORDERED: FUROSEMIDE INJ 20 MG/2 ML VIAL IV ONE (13:48)
--- NOTE | 2022-10-26 13:49 | Hospitalist Progress Note ---
Date of Service October 26, 2022 Assessment & Plan (1) Sepsis associated hypotension: Plan: Presented with hypothermia, hypotension, and acute encephalopathy secondary to wound infection on lower extremity with surrounding erythema Right leg posterior wound status post debridement by general surgery Wound cultures growing Proteus vulgaris and MSSA from right leg and MSSA and corynebacterium on left leg Blood cultures remain no growth to date Sepsis now resolved and doing very well. Abx - transitioned to cefdinir twice daily on 10/23-last day of therapy will be 10/27 for total of 10 days Continue local wound care ID recommends adding on Nystatin cream bid for Candidal rash on LLE (2) Encephalopathy: Plan: Metabolic - 2nd to #1 - resolved (3) Anemia: Plan: Hemoglobin remains low at 8.4 and stable from previous Seen by hematology Transferrin saturation normal at 27%, ferritin 219, B12 and folate normal at 733 and 17, respectively TSH normal at 3.2 Hematology recommended SPEP which is still pending No evidence of hemolysis with normal total bilirubin and normal LDH, reticulocyte count is normal Follow CBC Most likely anemia of chronic disease Follow-up with hematology as an outpatient (4) Constipation: Plan: cont bowel regimen (5) Thrombocytopenia: Plan: likely due to sepsis resolved (6) Nausea & vomiting: Plan: resolved (7) Wound infection: Plan: Chronic stage 3 pressure wounds 2/2 wheelchair bound from spina bifida. Wound care consulted, and recs appreciated. Plan -- discharge to nursing home facility and change her wheelchair as its not mechanically suitable for her (8) Stage III pressure ulcer: Plan: - Chronic, patient is wheelchair-bound due to congenital spina bifida. Sees wound care clinic frequently. As above - Nystatin ordered for what appears to be fungal dermatitis on breasts as well as on LLE (9) Elevated LFTs: Plan: Initially thought to be from shock liver LFTs improving Cont to trend L Hold statin (10) Hypertension: Plan: BPs still a bit high may need BP med adjustment tomorrow if still high (11) Breast cancer: Plan: Diagnosed in March 2022, poor candidate for mastectomy as per oncology -Continue home anastrozole 1 mg p.o. daily as per oncology recommendation Follow with oncology as an outpatient (12) Hypernatremia: Plan: resolved (13) Hypothyroidism: Plan: TSH here is normal Continue home levothyroxine 50 mcg daily (14) Heart failure: Plan: acute/chronic diastolic CHF lasix 20mg IV x 1 assess response tomorrow Echo 05/16/2021: EF 55-60%. Mild LVH, no wma, left ventricular systolic function is normal. (15) History of CVA (cerebrovascular accident): Plan: Left parietal CVA in 2020 Continue aspirin 81 mg daily for secondary prevention (16) Severe obstructive sleep apnea: Plan: Continue CPAP at night with 2 L NC Plan DVT prophylaxis Lovenox Disposition SNF - Referrals have been made to [facility]. Admission and Anticipated Discharge Date Admission Date: October 18, 2022 Subjective complaining of cough/wheeze/dyspnea this am asked for albuterol this am with some improvement eating well no other complaints Review of Systems Review of Systems: gen - no fever cv - no cp GI - no abd pain Physical Exam Physical Exam: gen - NAD, pleasant neck - JVD present mouth - MMM heart - RRR, s1 s2 lungs - b/l basilar rales with scattered end-exp wheeze abd - soft NT BS+ musculo - b/l leg deformities from spina bifida skin - scaly skin on LEs, unable to visualize her ulcers as they are posterior Results & Data Results & Data ([facility]) Vital Signs (Past 12 Hours) Vital Signs Temp Pulse Resp BP Pulse Ox O2 Del Method O2 Flow Rate 10/26/22 08:00 Room Air 10/26/22 07:34 36.4 C L 83 16 160/89 H 96 Room Air 10/26/22 06:44 85 20 96 Nasal Cannula 2 Laboratory Results BMP wnl Diagnostic Findings Chest X-Ray 10/26/22 13:48 XR chest 1V portable HISTORY: 72 years-old Female b/l wheeze/crackles; pulm edema? Acute shortness breath with wheezing COMPARISON: Chest radiograph 10/18/2022 TECHNIQUE: AP view of the chest FINDINGS: Cardiac silhouette is enlarged. Pulmonary vascular congestion with interstitial coarsening. Trace pleural effusions with mild bibasilar densities. Left hemidiaphragmatic elevation with gaseous distention of the stomach. Degenerative changes of the shoulders and spine. IMPRESSION: 1. Cardiomegaly with mild pulmonary edema. 2. Trace pleural effusions with mild bibasilar opacities suggestive of atelectasis. ACT 112: Negative or not required by law. The above report was generated using voice recognition software. It may contain grammatical, syntax or spelling errors. Electronically signed by: Saeid Chong M.D. 10/26/2022 5:14 PM PG Care Time/CCT Total # of Minutes Spent Total Time Spent with Patient: Total time spent is greater than 50% in coordination of care (as documented) at patient's floor/unit and/or counseling patient: Coding Level of Care Code 25597 Subseq Hosp Care Lvl 2 Diagnoses Sepsis associated hypotension A41.9; I95.9 Encephalopathy G93.40 Anemia D64.9 Constipation K59.00 Thrombocytopenia D69.6 Nausea & vomiting R11.2 Wound infection T14.8XXA; L08.9 Stage III pressure ulcer L89.93 Elevated LFTs R79.89 Hypertension I10 Hypertension type: primary hypertension Breast cancer C50.919 Hypernatremia E87.0 Hypothyroidism E03.9 Heart failure I50.9 History of CVA (cerebrovascular accident) Z86.73 Severe obstructive sleep apnea G47.33 (1) Hypertension Hypertension type: primary hypertension Qualified Code(s): I10 - Essential (primary) hypertension
[2022-10-26] MEDS: ENOXAPARIN INJ 40 MG/0.4 ML SYR SQ SCH (16:00)
--- NOTE | 2022-10-26 17:15 | XRay Report ---
XR chest 1V portable HISTORY: 72 years-old Female b/l wheeze/crackles; pulm edema? Acute shortness breath with wheezing COMPARISON: Chest radiograph 10/18/2022 TECHNIQUE: AP view of the chest FINDINGS: Cardiac silhouette is enlarged. Pulmonary vascular congestion with interstitial coarsening. Trace ple ural effusions with mild bibasilar densities. Left hemidiaphragmatic elevation with gaseous distentio n of the stomach. Degenerative changes of the shoulders and spine. IMPRESSION: 1. Cardiomegaly with mild pulmonary edema. 2. Trace pleural effusions with mild bibasilar opacities suggestive of atelectasis. ACT 112: Negative or not required by law. The above report was generated using voice recognition software. It may contain grammatical, syntax o r spelling errors. Electronically signed by: Saeid Chong M.D. 10/26/2022 5:14 PM
[2022-10-27] MEDS: LEVOTHYROXINE SODIUM 50 MCG TABLET PO SCH (05:25)
[2022-10-27 08:18] LABS: Hematocrit (blood only) 26.5 % (34.1-44.9); Hemoglobin 8.5 g/dl (12.0-16.0); Mean Corpuscular Hemoglobin 29.2 pg (25.0-34.0); Mean Corpuscular Hgb Conc 32.1 g/dL (32.0-36.0); Mean Corpuscular Volume 91.1 fL (80.0-100.0); Mean Platelet Volume 10.9 fL (9.4-12.3); Platelet Count 212 K/uL (130-400); RDW Coefficient of Variation 18.4 % (11.5-14.5); RDW Standard Deviation 58.7 fL (36.4-46.3); Red Blood Count 2.91 M/uL (3.93-5.22); White Blood Count 6.97 K/ul (4.8-10.8)
[2022-10-27] MEDS: CEFDINIR 300 MG CAP PO SCH ×2 (08:42→20:48)
[2022-10-27] MEDS: ASPIRIN 81 MG ECTAB PO SCH (08:42)
[2022-10-27] MEDS: COLLAGENASE OINT 30 GM TUBE EXT SCH (08:42)
[2022-10-27] MEDS: DOCUSATE SODIUM/SENNA 50/8.6MG TAB PO SCH ×2 (08:42→20:48)
[2022-10-27] MEDS: PANTOprazole 40 MG TAB PO SCH (08:42)
[2022-10-27] MEDS: ANASTROZOLE 1 MG TAB PO SCH (08:42)
[2022-10-27] MEDS: amLODIPine BESYLATE 5 MG TAB PO SCH (08:42)
[2022-10-27] MEDS: NYSTATIN POWDER 15GM BTL EXT SCH ×2 (08:43→20:48)
[2022-10-27] MEDS: POLYETHYLENE (MIRALAX) 17 GM PACK PO SCH (08:43)
[2022-10-27] MEDS: NYSTATIN CR 15 GM TUBE EXT SCH ×2 (08:43→20:49)
[2022-10-27 08:45] LABS: BUN Creatinine Ratio 55.1 (10-20); Bilirubin,Total 0.4 mg/dl (0.2-1.0); Calcium 8.8 mg/dl (8.5-10.1); Creatinine Clr Calc Pharmacy 110.5 ml/min; Est GFR (African American) 113.6 ml/min; Potassium 4.4 mmol/L (3.5-5.1)
[2022-10-27] MEDS ORDERED: FUROSEMIDE INJ 20 MG/2 ML VIAL IV ONE (10:15)
[2022-10-27] MEDS ORDERED: PERFLUTREN LIPID MICROSPHERE (DEFINITY) IV ONE (13:48)
[2022-10-27] MEDS: ALBUTEROL HFA 8 GM INHALER INH SCH ×2 (14:39→19:14)
[2022-10-27 14:56] LABS: Albumin 2.6 g/dL (3.8-4.8); Alpha 1 Globulin 0.5 g/dL (0.2-0.3); Alpha 2 Globulin 0.8 g/dL (0.5-0.9); Beta-1-Globulin 0.2 g/dL (0.4-0.6); Beta-2-Globulin 0.4 g/dL (0.2-0.5); Gamma Globulin 0.8 g/dL (0.8-1.7); Monoclonal Protein Band 1 DNR g/dL (NONE DETECTED); Monoclonal Protein Band 2 DNR g/dL (NONE DETECTED); Monoclonal Protein Band 3 DNR g/dL (NONE DETECTED); Total Protein 5.3 g/dL (6.1-8.1)
--- NOTE | 2022-10-27 15:28 | XCELERA ---
[id number]
[2022-10-27] MEDS: ENOXAPARIN INJ 40 MG/0.4 ML SYR SQ SCH (15:40)
--- NOTE | 2022-10-27 20:59 | Hospitalist Progress Note ---
Date of Service October 27, 2022 Assessment & Plan (1) Sepsis associated hypotension: Plan: resolved Presented with hypothermia, hypotension, and acute encephalopathy secondary to wound infection on lower extremity with surrounding erythema Right leg posterior wound status post debridement by general surgery Wound cultures grew Proteus vulgaris and MSSA from right leg, and MSSA and corynebacterium on left leg Blood cultures negative while here abx completed - finished cefdinir course today ID consult appreciated Continue local wound care ID recommends adding on Nystatin cream bid for Candidal rash on LLE (2) Encephalopathy: Plan: Metabolic - 2nd to #1 - resolved (3) Anemia: Plan: Hemoglobin remains mid 8s; stable from previous Seen by hematology Transferrin saturation normal at 27%, ferritin 219, B12 and folate normal at 733 and 17, respectively TSH normal at 3.2 Hematology recommended SPEP - faint M-spike in gamma globulin region No evidence of hemolysis with normal total bilirubin and normal LDH, reticulocyte count is normal will send serum & urine immunofixation will need f/u with hematology (4) Constipation: Plan: cont bowel regimen (5) Thrombocytopenia: Plan: likely due to sepsis resolved (6) Nausea & vomiting: Plan: resolved (7) Wound infection: Plan: Chronic stage 3 pressure wounds 2/2 wheelchair bound from spina bifida. Wound care consulted, and recs appreciated. Plan -- discharge to [facility] facility and change her wheelchair as its not mechanically suitable for her (8) Stage III pressure ulcer: Plan: Chronic, patient is wheelchair-bound due to congenital spina bifida. Sees wound care clinic frequently. (9) Elevated LFTs: Plan: Initially thought to be from shock liver LFTs improving Cont to trend LFTs Hold statin (10) Hypertension: Plan: BPs improving with diuresis cont amlodipine (11) Breast cancer: Plan: Diagnosed in March 2022, poor candidate for mastectomy as per oncology -Continue home anastrozole 1 mg p.o. daily as per oncology recommendation Follow with oncology as an outpatient (12) Hypernatremia: Plan: resolved (13) Hypothyroidism: Plan: TSH wnl Continue home levothyroxine 50 mcg daily (14) Heart failure: Plan: acute/chronic diastolic CHF lasix 20mg IV x 1 again today still examines volume overloaded Echo 05/16/2021: EF 55-60%. Mild LVH, no wma, left ventricular systolic function is normal. Echo this admission - normal EF, grade 1 diastolic dysfunction; no change from prior (15) History of CVA (cerebrovascular accident): Plan: Left parietal CVA in 2020 Continue aspirin 81 mg daily for secondary prevention (16) Severe obstructive sleep apnea: Plan: Continue CPAP at night with 2 L NC Plan DVT prophylaxis Lovenox Disposition SNF - Referrals have been made to [facility] and [facility]. Awaiting bed, etc Called and spoke with pt's this evening - gave update Admission and Anticipated Discharge Date Admission Date: October 18, 2022 Subjective reports cough/wheezing/dyspnea are all improved making copious urine she wants to try and get out of bed has her wheelchair from home here at the hospital no new issues overnight otherwise Review of Systems Review of Systems: gen - no fevers; fair at best appetite cv - no chest pain pulm - symptoms all improved as per HPI GI - no nausea / emesis musculo - denies pain any location Physical Exam Physical Exam: gen - NAD, pleasant, looks better today neck - JVD present but improved mouth - MMM heart - RRR, s1 s2, no murmur lungs - b/l basilar rales improved; airation improved; still with scattered end- exp wheeze abd - soft NT BS+ ND musculo - b/l leg deformities from spina bifida skin - scaly skin on LEs, ulcer right lateral thigh - clean base, no purulence, no cellulitis, no odor Results & Data Results & Data ([facility]) Vital Signs (Past 12 Hours) Vital Signs Temp Pulse Resp BP Pulse Ox O2 Del Method O2 Flow Rate 10/27/22 20:55 36.5 C 85 18 143/76 H 94 Room Air 10/27/22 19:14 75 18 95 Room Air 10/27/22 15:47 36.6 C 82 19 132/80 94 Room Air 10/27/22 14:39 76 18 94 Room Air 10/27/22 09:47 Nasal Cannula 2 Laboratory Results Laboratory Results - last 24 hr 10/23/22 10/27/22 10/27/22 07:56 07:58 07:58 WBC 6.97 RBC 2.91 L Hgb 8.5 L Hct 26.5 L MCV 91.1 MCH 29.2 MCHC 32.1 RDW Std Deviation 58.7 H RDW Coeff of Deanna 18.4 H Plt Count 212 MPV 10.9 Sodium 142 Potassium 4.4 Chloride 105 Carbon Dioxide 34 H Anion Gap 3 BUN 27 H Creatinine 0.49 L Est Cr Clr Drug Dosing 110.5 Est GFR ( Amer) 113.6 Est GFR (Non-Af Amer) 98.0 BUN/Creatinine Ratio 55.1 H Glucose 79 Calcium 8.8 Total Bilirubin 0.4 AST 38 ALT 67 H Alkaline Phosphatase 215 H Total Protein 6.0 Total Protein (PEP) 5.3 L Albumin 3.0 L Albumin (PEP) 2.6 L Globulin 3.0 Albumin/Globulin Ratio 1.0 Etclt-2-Relubghjh 0.5 H Tfrlj-6-Cprpqanyc 0.8 Hzse-3-Rkbvpjcz 0.2 L Isua-8-Idxypumt 0.4 Gamma Globulins 0.8 Monoclonal Peak 3 DNR Ser Monoclonl Protein DNR Ser Monoclonal Prot 2 DNR PEP Interpretation SEE NOTE PG Care Time/CCT Total # of Minutes Spent Total Time Spent with Patient: Total time spent is greater than 50% in coordination of care (as documented) at patient's floor/unit and/or counseling patient: Coding Level of Care Code 90198 Subseq Hosp Care Lvl 2 Diagnoses Sepsis associated hypotension A41.9; I95.9 Encephalopathy G93.40 Anemia D64.9 Constipation K59.00 Thrombocytopenia D69.6 Nausea & vomiting R11.2 Wound infection T14.8XXA; L08.9 Stage III pressure ulcer L89.93 Elevated LFTs R79.89 Hypertension I10 Hypertension type: primary hypertension Breast cancer C50.919 Hypernatremia E87.0 Hypothyroidism E03.9 Heart failure I50.9 History of CVA (cerebrovascular accident) Z86.73 Severe obstructive sleep apnea G47.33 (1) Hypertension Hypertension type: primary hypertension Qualified Code(s): I10 - Essential (primary) hypertension
[2022-10-28] MEDS: LEVOTHYROXINE SODIUM 50 MCG TABLET PO SCH (06:19)
[2022-10-28] MEDS: ALBUTEROL HFA 8 GM INHALER INH SCH ×2 (07:05→11:40)
[2022-10-28] MEDS: ANASTROZOLE 1 MG TAB PO SCH (07:58)
[2022-10-28] MEDS: PANTOprazole 40 MG TAB PO SCH (07:58)
[2022-10-28] MEDS: amLODIPine BESYLATE 5 MG TAB PO SCH (07:58)
[2022-10-28] MEDS: ASPIRIN 81 MG ECTAB PO SCH (07:58)
[2022-10-28] MEDS: DOCUSATE SODIUM/SENNA 50/8.6MG TAB PO SCH ×2 (07:58→21:48)
[2022-10-28] MEDS: COLLAGENASE OINT 30 GM TUBE EXT SCH (07:59)
[2022-10-28] MEDS: NYSTATIN POWDER 15GM BTL EXT SCH ×2 (07:59→21:41)
[2022-10-28] MEDS: NYSTATIN CR 15 GM TUBE EXT SCH ×2 (07:59→21:42)
[2022-10-28] MEDS: POLYETHYLENE (MIRALAX) 17 GM PACK PO SCH (08:00)
[2022-10-28 09:15] LABS: BUN Creatinine Ratio 62.3 (10-20); Calcium 9.1 mg/dl (8.5-10.1); Creatinine Clr Calc Pharmacy 102.1 ml/min; Est GFR (African American) 110.7 ml/min; Est GFR (Non-African American) 95.5 ml/min; Magnesium 1.9 mg/dl (1.7-2.4); Potassium 4.4 mmol/L (3.5-5.1)
[2022-10-28] MEDS ORDERED: FUROSEMIDE INJ 20 MG/2 ML VIAL IV ONE (10:19)
[2022-10-28] MEDS: ENOXAPARIN INJ 40 MG/0.4 ML SYR SQ SCH (16:23)
--- NOTE | 2022-10-28 21:34 | Hospitalist Progress Note ---
Date of Service October 28, 2022 Assessment & Plan (1) Sepsis associated hypotension: Plan: resolved Presented with hypothermia, hypotension, and acute encephalopathy secondary to b/l wound infections on lower extremities with surrounding erythema Right leg posterior wound status post debridement by general surgery Wound cultures grew Proteus vulgaris and MSSA from right leg, and MSSA and corynebacterium on left leg Blood cultures negative while here abx completed - finished cefdinir course 10/27/22 ID consult appreciated Continue local wound care ID recommends Nystatin cream bid for Candidal rash on LLE (2) Encephalopathy: Plan: Metabolic - 2nd to #1 - resolved (3) Anemia: Plan: Hemoglobin remains mid 8s; stable from previous Seen by hematology Transferrin saturation normal at 27%, ferritin 219, B12 and folate normal at 733 and 17, respectively TSH normal at 3.2 Hematology recommended SPEP - faint M-spike in gamma globulin region No evidence of hemolysis with normal total bilirubin and normal LDH, reticulocyte count is normal will send serum & urine immunofixation will need f/u with hematology (4) Constipation: Plan: cont bowel regimen (5) Thrombocytopenia: Plan: likely due to sepsis resolved (6) Nausea & vomiting: Plan: resolved (7) Wound infection: Plan: Chronic stage 3 pressure wounds 2/2 wheelchair bound from spina bifida. Wound care consulted, and recs appreciated. Plan -- discharge to [facility] facility and change her wheelchair as its not mechanically suitable for her (8) Stage III pressure ulcer: Plan: Chronic, patient is wheelchair-bound due to congenital spina bifida. Sees wound care clinic frequently. (9) Elevated LFTs: Plan: Initially thought to be from shock liver LFTs improving Cont to trend LFTs Hold statin some of the elevation could have been passive congestion of liver from CHF (10) Hypertension: Plan: BPs improving with diuresis cont amlodipine (11) Breast cancer: Plan: Diagnosed in March 2022, poor candidate for mastectomy as per oncology -Continue home anastrozole 1 mg p.o. daily as per oncology recommendation Follow with oncology as an outpatient (12) Hypernatremia: Plan: resolved (13) Hypothyroidism: Plan: TSH wnl Continue home levothyroxine 50 mcg daily (14) Heart failure: Plan: acute/chronic diastolic CHF - improving lung exam much better lasix 20mg IV x 1 again today creatinine and labs stable Echo 05/16/2021: EF 55-60%. Mild LVH, no wma, left ventricular systolic function is normal. Echo this admission - normal EF, grade 1 diastolic dysfunction; no change from prior (15) History of CVA (cerebrovascular accident): Plan: Left parietal CVA in 2020 Continue aspirin 81 mg daily for secondary prevention (16) Severe obstructive sleep apnea: Plan: Continue CPAP at night with 2 L NC Plan DVT prophylaxis Lovenox Disposition SNF - Referrals have been made to [facility]. Awaiting bed, etc Called and spoke with pt's last evening - gave update await dispo Admission and Anticipated Discharge Date Admission Date: October 18, 2022 Subjective patient sat in her power chair yesterday this allowed her to get out of her room - went in hallway it was good to be out of bed breathing improved scant cough wheezing improved making good urine eating ok no new complaints - she is "bored" Review of Systems Review of Systems: gen - no fevers cv - no pain pulm - denies dyspnea GI - no pain or nausea/emesis Physical Exam Physical Exam: gen - NAD, pleasant neck - JVD still present mouth - MMM heart - RRR, s1 s2, no murmur lungs - b/l basilar rales improved; airation improved; wheezes much improved abd - soft NT BS+ ND musculo - b/l leg deformities from spina bifida; edema improved b/l legs skin - scaly skin on LEs Results & Data Results & Data ([facility]) Vital Signs (Past 12 Hours) Vital Signs Temp Pulse Resp BP Pulse Ox O2 Del Method 10/28/22 15:46 36.7 C 76 20 129/70 94 Room Air 10/28/22 11:40 68 18 96 Room Air Laboratory Results Laboratory Results - last 24 hr 10/28/22 08:13 Sodium 140 Potassium 4.4 Chloride 103 Carbon Dioxide 34 H Anion Gap 3 BUN 33 H Creatinine 0.53 L Est Cr Clr Drug Dosing 102.1 Est GFR ( Amer) 110.7 Est GFR (Non-Af Amer) 95.5 BUN/Creatinine Ratio 62.3 H Glucose 77 Calcium 9.1 Magnesium 1.9 Diagnostic Findings echo - grade 1 diastolic dysfunction; LV function wnl; valve function wnl PG Care Time/CCT Total # of Minutes Spent Total Time Spent with Patient: Total time spent is greater than 50% in coordination of care (as documented) at patient's floor/unit and/or counseling patient: Coding Level of Care Code 52138 Subseq Hosp Care Lvl 2 Diagnoses Sepsis associated hypotension A41.9; I95.9 Encephalopathy G93.40 Anemia D64.9 Constipation K59.00 Thrombocytopenia D69.6 Nausea & vomiting R11.2 Wound infection T14.8XXA; L08.9 Stage III pressure ulcer L89.93 Elevated LFTs R79.89 Hypertension I10 Hypertension type: primary hypertension Breast cancer C50.919 Hypernatremia E87.0 Hypothyroidism E03.9 Heart failure I50.9 History of CVA (cerebrovascular accident) Z86.73 Severe obstructive sleep apnea G47.33 (1) Hypertension Hypertension type: primary hypertension Qualified Code(s): I10 - Essential (primary) hypertension
[2022-10-29] MEDS: LEVOTHYROXINE SODIUM 50 MCG TABLET PO SCH (06:06)
[2022-10-29 07:23] LABS: Hematocrit (blood only) 26.9 % (34.1-44.9); Hemoglobin 8.7 g/dl (12.0-16.0)
[2022-10-29 07:57] LABS: BUN Creatinine Ratio 63.8 (10-20); Creatinine Clr Calc Pharmacy 93.3 ml/min; Est GFR (African American) 107.5 ml/min; Est GFR (Non-African American) 92.7 ml/min; Potassium 4.1 mmol/L (3.5-5.1)
[2022-10-29] MEDS: COLLAGENASE OINT 30 GM TUBE EXT SCH (08:00)
[2022-10-29] MEDS: NYSTATIN CR 15 GM TUBE EXT SCH ×2 (08:00→21:43)
[2022-10-29] MEDS: ANASTROZOLE 1 MG TAB PO SCH (08:00)
[2022-10-29] MEDS: PANTOprazole 40 MG TAB PO SCH (08:00)
[2022-10-29] MEDS: amLODIPine BESYLATE 5 MG TAB PO SCH (08:00)
[2022-10-29] MEDS: ASPIRIN 81 MG ECTAB PO SCH (08:00)
[2022-10-29] MEDS: DOCUSATE SODIUM/SENNA 50/8.6MG TAB PO SCH ×2 (08:01→21:43)
[2022-10-29] MEDS: POLYETHYLENE (MIRALAX) 17 GM PACK PO SCH (08:01)
[2022-10-29] MEDS: NYSTATIN POWDER 15GM BTL EXT SCH ×2 (08:01→21:42)
[2022-10-29] MEDS ORDERED: FUROSEMIDE INJ 20 MG/2 ML VIAL IV ONE (08:14)
[2022-10-29] MEDS: ENOXAPARIN INJ 40 MG/0.4 ML SYR SQ SCH (15:57)
--- NOTE | 2022-10-29 21:01 | Hospitalist Progress Note ---
Date of Service October 29, 2022 Assessment & Plan (1) Sepsis associated hypotension: Plan: resolved Presented with hypothermia, hypotension, and acute encephalopathy secondary to b/l wound infections on lower extremities with surrounding erythema Right leg posterior wound status post debridement by general surgery Wound cultures grew Proteus vulgaris and MSSA from right leg, and MSSA and corynebacterium on left leg Blood cultures negative while here abx completed - finished cefdinir course 10/27/22 Continue local wound care (2) Encephalopathy: Plan: Metabolic - 2nd to #1 - resolved (3) Anemia: Plan: Hemoglobin remains mid 8s; stable from previous Seen by hematology Transferrin saturation normal at 27%, ferritin 219, B12 and folate normal at 733 and 17, respectively TSH normal at 3.2 Hematology recommended SPEP - faint M-spike in gamma globulin region No evidence of hemolysis with normal total bilirubin and normal LDH, reticulocyte count is normal will send serum & urine immunofixation will need f/u with hematology (4) Constipation: Plan: cont bowel regimen (5) Thrombocytopenia: Plan: likely was due to sepsis resolved (6) Nausea & vomiting: Plan: resolved (7) Wound infection: Plan: Chronic stage 3 pressure wounds 2/2 wheelchair bound from spina bifida. Wound care consulted, and recs appreciated. [facility] her wheelchair as its not mechanically suitable for her (8) Stage III pressure ulcer: Plan: Chronic, patient is wheelchair-bound due to congenital spina bifida. Sees wound care clinic frequently. (9) Elevated LFTs: Plan: Initially thought to be from shock liver LFTs improving Cont to trend LFTs Hold statin some of the elevation could have been passive congestion of liver from CHF (10) Hypertension: Plan: BPs improving with diuresis cont amlodipine (11) Breast cancer: Plan: Diagnosed in March 2022, poor candidate for mastectomy as per oncology -Continue home anastrozole 1 mg p.o. daily as per oncology recommendation Follow with oncology as an outpatient (12) Hypernatremia: Plan: resolved (13) Hypothyroidism: Plan: TSH wnl Continue home levothyroxine 50 mcg daily (14) Heart failure: Plan: acute/chronic diastolic CHF - improving/nearly resolving lasix 20mg IV x 1 again today creatinine and labs stable lungs very clear today Echo 05/16/2021: EF 55-60%. Mild LVH, no wma, left ventricular systolic function is normal. Echo this admission - normal EF, grade 1 diastolic dysfunction; no change from prior repeat BMP am (15) History of CVA (cerebrovascular accident): Plan: Left parietal CVA in 2020 Continue aspirin 81 mg daily for secondary prevention (16) Severe obstructive sleep apnea: Plan: Continue CPAP at night with 2 L NC Plan DVT prophylaxis Lovenox Disposition SNF - Referrals have been made to [facility]. Awaiting bed, etc -- maybe d/c next week? updated at bedside today Admission and Anticipated Discharge Date Admission Date: October 18, 2022 Subjective again breathing is improved no wheezing today scant cough no dyspnea at rest no orthopnea eating fair came for a visit when I was in the room during rounds - questions answered patient getting anxious to leave - she is aware of referrals to SNF Review of Systems Review of Systems: gen - no fevers cv - no orthopnea or PND or cp pulm - improved dyspnea and wheezes GI - no pain Physical Exam Physical Exam: gen - NAD, pleasant, lying flat in bed neck - JVD resolved mouth - MMM heart - RRR, s1 s2, no murmur lungs - b/l basilar rales resolved; scant wheeze right lung only; clear otherwise and airation improved abd - soft NT BS+ ND musculo - b/l leg deformities from spina bifida; edema improved b/l legs skin - scaly skin on LEs; right lateral thigh - optifoam in place, this was peeled back and underlying ulcer is clean with no drainage and no cellulitis Results & Data Results & Data ([facility]) Vital Signs (Past 12 Hours) Vital Signs Temp Pulse Resp BP Pulse Ox O2 Del Method 10/29/22 15:15 36.8 C 82 16 123/68 92 Room Air 10/29/22 14:56 90 Laboratory Results Laboratory Results - last 24 hr 10/29/22 10/29/22 06:47 06:47 Hgb 8.7 L Hct 26.9 L Sodium 141 Potassium 4.1 Chloride 101 Carbon Dioxide 35 H Anion Gap 5 BUN 37 H Creatinine 0.58 L Est Cr Clr Drug Dosing 93.3 Est GFR ( Amer) 107.5 Est GFR (Non-Af Amer) 92.7 BUN/Creatinine Ratio 63.8 H Glucose 95 Calcium 9.0 PG Care Time/CCT Total # of Minutes Spent Total Time Spent with Patient: Total time spent is greater than 50% in coordination of care (as documented) at patient's floor/unit and/or counseling patient: Coding Level of Care Code 17131 Subseq Hosp Care Lvl 2 Diagnoses Sepsis associated hypotension A41.9; I95.9 Encephalopathy G93.40 Anemia D64.9 Constipation K59.00 Thrombocytopenia D69.6 Nausea & vomiting R11.2 Wound infection T14.8XXA; L08.9 Stage III pressure ulcer L89.93 Elevated LFTs R79.89 Hypertension I10 Hypertension type: primary hypertension Breast cancer C50.919 Hypernatremia E87.0 Hypothyroidism E03.9 Heart failure I50.9 History of CVA (cerebrovascular accident) Z86.73 Severe obstructive sleep apnea G47.33 (1) Hypertension Hypertension type: primary hypertension Qualified Code(s): I10 - Essential (primary) hypertension
[2022-10-30 06:25] LABS: BUN Creatinine Ratio 73.6 (10-20); Calcium 8.6 mg/dl (8.5-10.1); Creatinine Clr Calc Pharmacy 102.1 ml/min; Est GFR (African American) 110.7 ml/min; Est GFR (Non-African American) 95.5 ml/min; Potassium 4.1 mmol/L (3.5-5.1)
[2022-10-30] MEDS: LEVOTHYROXINE SODIUM 50 MCG TABLET PO SCH (06:40)
[2022-10-30] MEDS: DOCUSATE SODIUM/SENNA 50/8.6MG TAB PO SCH ×2 (08:36→20:31)
[2022-10-30] MEDS: POLYETHYLENE (MIRALAX) 17 GM PACK PO SCH (08:36)
[2022-10-30] MEDS: PANTOprazole 40 MG TAB PO SCH (08:38)
[2022-10-30] MEDS: ANASTROZOLE 1 MG TAB PO SCH (08:39)
[2022-10-30] MEDS: amLODIPine BESYLATE 5 MG TAB PO SCH (08:39)
[2022-10-30] MEDS ORDERED: FUROSEMIDE 20 MG TAB PO ONE (08:43)
[2022-10-30] MEDS: ASPIRIN 81 MG ECTAB PO SCH (09:25)
[2022-10-30] MEDS: NYSTATIN POWDER 15GM BTL EXT SCH ×2 (10:45→20:30)
[2022-10-30] MEDS: COLLAGENASE OINT 30 GM TUBE EXT SCH (10:45)
[2022-10-30] MEDS: NYSTATIN CR 15 GM TUBE EXT SCH ×2 (10:46→20:31)
[2022-10-30] MEDS: ENOXAPARIN INJ 40 MG/0.4 ML SYR SQ SCH (15:59)
--- NOTE | 2022-10-30 20:53 | Hospitalist Progress Note ---
Date of Service October 30, 2022 Assessment & Plan (1) Sepsis associated hypotension: Plan: resolved Presented with hypothermia, hypotension, and acute encephalopathy secondary to b/l wound infections on lower extremities with surrounding erythema Right leg posterior wound status post debridement by general surgery Wound cultures grew Proteus vulgaris and MSSA from right leg, and MSSA and corynebacterium on left leg Blood cultures negative while here abx completed - finished cefdinir course 10/27/22 Continue local wound care (2) Encephalopathy: Plan: Metabolic - 2nd to #1 - resolved (3) Anemia: Plan: Hemoglobin remains mid 8s; stable from previous Seen by hematology Transferrin saturation normal at 27%, ferritin 219, B12 and folate normal at 733 and 17, respectively TSH normal at 3.2 Hematology recommended SPEP - faint M-spike in gamma globulin region No evidence of hemolysis with normal total bilirubin and normal LDH, reticulocyte count is normal will send serum & urine immunofixation will need f/u with hematology (4) Constipation: Plan: cont bowel regimen (5) Thrombocytopenia: Plan: likely was due to sepsis resolved (6) Nausea & vomiting: Plan: resolved (7) Wound infection: Plan: Chronic stage 3 pressure wounds due to being wheelchair bound from spina bifida. Wound care provided recs Plan -- discharge to [facility] facility and change her wheelchair as its not mechanically suitable for her will need to ask social work about her power chair (8) Stage III pressure ulcer: Plan: Chronic (9) Elevated LFTs: Plan: Initially thought to be from shock liver LFTs improving Cont to trend LFTs Hold statin some of the elevation could have been passive congestion of liver from CHF (10) Hypertension: Plan: controlled cont amlodipine (11) Breast cancer: Plan: Diagnosed in March 2022, poor candidate for mastectomy as per oncology -Continue home anastrozole 1 mg p.o. daily as per oncology recommendation Follow with oncology as an outpatient (12) Hypernatremia: Plan: resolved (13) Hypothyroidism: Plan: TSH wnl Continue home levothyroxine 50 mcg daily (14) Heart failure: Plan: acute/chronic diastolic CHF - acute component clinically resolved lasix PO x 1 only today Echo 05/16/2021: EF 55-60%. Mild LVH, no wma, left ventricular systolic function is normal. Echo this admission - normal EF, grade 1 diastolic dysfunction; no change from prior repeat BMP am (15) History of CVA (cerebrovascular accident): Plan: Left parietal CVA in 2020 Continue aspirin 81 mg daily for secondary prevention (16) Severe obstructive sleep apnea: Plan: Continue CPAP at night with 2 L NC Plan DVT prophylaxis Lovenox Disposition SNF - Referrals have been made to [facility]. Awaiting bed, etc -- maybe d/c next week? updated at bedside today Admission and Anticipated Discharge Date Admission Date: October 18, 2022 Subjective no issues overnight patient was in her power chair watching tv during the visit was present he stated that when she ultimately returns home there are certain medical equipment they may need Review of Systems Review of Systems: pulm - wheezing/cough/dyspnea all resolved gi - no pain cv - no cp Physical Exam Physical Exam: gen - NAD, pleasant, sitting in power chair neck - JVD resolved mouth - MMM heart - RRR, s1 s2, no murmur lungs - b/l basilar rales resolved; wheezes resolved abd - soft NT BS+ ND musculo - b/l leg deformities from spina bifida; edema improved b/l legs skin - scaly skin on LEs Results & Data Results & Data ([facility]) Vital Signs (Past 12 Hours) Vital Signs Temp Pulse Resp BP Pulse Ox O2 Del Method 10/30/22 16:20 36.8 C 81 16 115/63 92 Room Air 10/30/22 12:59 Room Air Laboratory Results Laboratory Results - last 24 hr 10/30/22 05:36 Sodium 140 Potassium 4.1 Chloride 101 Carbon Dioxide 35 H Anion Gap 4 BUN 39 H Creatinine 0.53 L Est Cr Clr Drug Dosing 102.1 Est GFR ( Amer) 110.7 Est GFR (Non-Af Amer) 95.5 BUN/Creatinine Ratio 73.6 H Glucose 85 Calcium 8.6 PG Care Time/CCT Total # of Minutes Spent Total Time Spent with Patient: Total time spent is greater than 50% in coordination of care (as documented) at patient's floor/unit and/or counseling patient: Coding Level of Care Code 41717 Subseq Hosp Care Lvl 2 Diagnoses Sepsis associated hypotension A41.9; I95.9 Encephalopathy G93.40 Anemia D64.9 Constipation K59.00 Thrombocytopenia D69.6 Nausea & vomiting R11.2 Wound infection T14.8XXA; L08.9 Stage III pressure ulcer L89.93 Elevated LFTs R79.89 Hypertension I10 Hypertension type: primary hypertension Breast cancer C50.919 Hypernatremia E87.0 Hypothyroidism E03.9 Heart failure I50.9 History of CVA (cerebrovascular accident) Z86.73 Severe obstructive sleep apnea G47.33 (1) Hypertension Hypertension type: primary hypertension Qualified Code(s): I10 - Essential (primary) hypertension
[2022-10-31 06:09] LABS: Albumin Level 2.9 gm/dl (3.4-5.0); Bilirubin Direct 0.1 mg/dl (0-0.2); Bilirubin,Total 0.4 mg/dl (0.2-1.0); Calcium 8.6 mg/dl (8.5-10.1); Creatinine Clr Calc Pharmacy 135.3 ml/min; Est GFR (African American) 121.5 ml/min; Est GFR (Non-African American) 104.8 ml/min; Total Protein 5.7 gm/dl (6.0-8.3)
[2022-10-31] MEDS: LEVOTHYROXINE SODIUM 50 MCG TABLET PO SCH (06:13)
[2022-10-31] MEDS: POLYETHYLENE (MIRALAX) 17 GM PACK PO SCH (09:26)
[2022-10-31] MEDS: DOCUSATE SODIUM/SENNA 50/8.6MG TAB PO SCH ×2 (09:28→20:29)
[2022-10-31] MEDS: amLODIPine BESYLATE 5 MG TAB PO SCH (09:28)
[2022-10-31] MEDS: ANASTROZOLE 1 MG TAB PO SCH (09:28)
[2022-10-31] MEDS: ASPIRIN 81 MG ECTAB PO SCH (09:28)
[2022-10-31] MEDS: PANTOprazole 40 MG TAB PO SCH (09:28)
[2022-10-31] MEDS: NYSTATIN CR 15 GM TUBE EXT SCH ×2 (10:07→20:28)
[2022-10-31] MEDS: COLLAGENASE OINT 30 GM TUBE EXT SCH (10:08)
[2022-10-31] MEDS: NYSTATIN POWDER 15GM BTL EXT SCH ×2 (10:08→20:27)
[2022-10-31] MEDS: ENOXAPARIN INJ 40 MG/0.4 ML SYR SQ SCH (16:22)
[2022-10-31] MEDS ORDERED: ONDANSETRON 4 MG OD TAB PO PRN (17:42)
--- NOTE | 2022-10-31 20:14 | Hospitalist Progress Note ---
Date of Service October 31, 2022 Assessment & Plan (1) Nausea: Plan: 2nd to brewing UTI? 2nd other infectious process? other? constipation not present. she is cholecystectomy state. treat symptoms. check u/a and urine cx (I/O cath for such). monitor. (2) Sepsis associated hypotension: Plan: resolved Presented with hypothermia, hypotension, and acute encephalopathy secondary to b/l wound infections on lower extremities with surrounding erythema Right leg posterior wound status post debridement by general surgery Wound cultures grew Proteus vulgaris and MSSA from right leg, and MSSA and corynebacterium on left leg Blood cultures negative while here abx completed - finished cefdinir course 10/27/22 Continue local wound care (3) Encephalopathy: Plan: Metabolic - 2nd to #1 - resolved (4) Anemia: Plan: Hemoglobin remains mid 8s; stable from previous Seen by hematology Transferrin saturation normal at 27%, ferritin 219, B12 and folate normal at 733 and 17, respectively TSH normal at 3.2 Hematology recommended SPEP - faint M-spike in gamma globulin region No evidence of hemolysis with normal total bilirubin and normal LDH, reticulocyte count is normal sent serum immunofixation will need f/u with hematology (5) Constipation: Plan: cont bowel regimen resolved (6) Thrombocytopenia: Plan: likely was due to sepsis resolved repeat cbc in am (7) Nausea & vomiting: Plan: resolved, now has recurred - see #1 above (8) Wound infection: Plan: right thigh - cont local wound care (9) Stage III pressure ulcer: Plan: Chronic (10) Elevated LFTs: Plan: Initially thought to be from shock liver LFTs improving - nearly normal today passive congestion of liver from CHF may also have contributed Cont to trend LFTs Hold statin (11) Hypertension: Plan: controlled cont amlodipine (12) Breast cancer: Plan: Diagnosed in March 2022, poor candidate for mastectomy as per oncology -Continue home anastrozole 1 mg p.o. daily as per oncology recommendation Follow with oncology as an outpatient (13) Hypernatremia: Plan: resolved (14) Hypothyroidism: Plan: TSH wnl Continue home levothyroxine 50 mcg daily (15) Heart failure: Plan: acute/chronic diastolic CHF - acute component clinically resolved defer on lasix today Echo 05/16/2021: EF 55-60%. Mild LVH, no wma, left ventricular systolic function is normal. Echo this admission - normal EF, grade 1 diastolic dysfunction; no change from prior repeat BMP am (16) History of CVA (cerebrovascular accident): Plan: Left parietal CVA in 2020 Continue aspirin 81 mg daily for secondary prevention (17) Severe obstructive sleep apnea: Plan: Continue CPAP at night with 2 L NC Plan DVT prophylaxis Lovenox Disposition SNF - Referrals have been made to [facility] and [facility]. Awaiting bed, etc updated at bedside yesterday Admission and Anticipated Discharge Date Admission Date: October 18, 2022 Subjective patient ate good breakfast good lunch but then had nausea this afternoon didn't eat dinner due to such has had stools yesterday/today no vomiting not as much energy today Review of Systems Review of Systems: gen - no fever or chills cv - no cp pulm - no dyspnea, wheezing or cough GI - no pain - incontinent of urine at baseline; uses Depends undergarments at home Physical Exam Physical Exam: gen - NAD, but doesn't look well neck - no JVD mouth - MMM heart - RRR, s1 s2, no murmur lungs - CTA b/l abd - soft NT BS+ ND musculo - b/l leg deformities from spina bifida; edema improved b/l legs skin - scaly skin on LEs; right lateral thigh ulcer clean, no cellulitis, no purulence psych - looks depressed Results & Data Results & Data ([facility]) Vital Signs (Past 12 Hours) Vital Signs Temp Pulse Resp BP Pulse Ox O2 Del Method 10/31/22 16:00 36.5 C 80 17 131/71 93 Room Air 10/31/22 08:40 36.5 C 65 18 110/64 94 Room Air Laboratory Results Laboratory Results - last 24 hr 10/31/22 10/31/22 10/31/22 05:03 05:03 05:03 Sodium 144 Potassium 4.0 Chloride 105 Carbon Dioxide 35 H Anion Gap 4 BUN 42 H Creatinine 0.40 L Est Cr Clr Drug Dosing 135.3 Est GFR ( Amer) 121.5 Est GFR (Non-Af Amer) 104.8 BUN/Creatinine Ratio 105.0 H Glucose 90 Calcium 8.6 Total Bilirubin 0.4 Direct Bilirubin 0.1 AST 19 ALT 31 Alkaline Phosphatase 136 H Total Protein 5.7 L Albumin 2.9 L Serum Immunofixation Pending PG Care Time/CCT Total # of Minutes Spent Total Time Spent with Patient: Total time spent is greater than 50% in coordination of care (as documented) at patient's floor/unit and/or counseling patient: Coding Level of Care Code 13414 Subseq Hosp Care Lvl 2 Diagnoses Nausea R11.0 Sepsis associated hypotension A41.9; I95.9 Encephalopathy G93.40 Anemia D64.9 Constipation K59.00 Thrombocytopenia D69.6 Nausea & vomiting R11.2 Wound infection T14.8XXA; L08.9 Stage III pressure ulcer L89.93 Elevated LFTs R79.89 Hypertension I10 Hypertension type: primary hypertension Breast cancer C50.919 Hypernatremia E87.0 Hypothyroidism E03.9 Heart failure I50.9 History of CVA (cerebrovascular accident) Z86.73 Severe obstructive sleep apnea G47.33 (1) Hypertension Hypertension type: primary hypertension Qualified Code(s): I10 - Essential (primary) hypertension
[2022-10-31 20:57] LABS: Appearance Urine Turbid (Clear); Bacteria Urine Automated Negative (Negative); Bilirubin Urine Negative (Negative); Blood Urine Negative (Negative); Color Urine Yellow; Glucose Urine UA Negative (Negative); Ketones Urine Negative (Negative); Leukocyte Esterase Urine Negative (Negative); Nitrite Urine Negative (Negative); Protein Urine Negative (Negative); RBC Urine Automated 0-4 /hpf (0-4); Specific Gravity Urine 1.015 (1.000-1.030); Urobilinogen Urine Negative (Negative); pH Urine 7.5 (4.5-7.5)
[2022-11-01] MEDS: LEVOTHYROXINE SODIUM 50 MCG TABLET PO SCH (06:05)
[2022-11-01 07:40] LABS: Basophils # (auto) 0.05 K/uL (0-0.2); Basophils % (auto) 0.9 %; Eosinophils # (auto) 0.26 K/uL (0-0.50); Eosinophils % (auto) 4.7 %; Hematocrit (blood only) 26.3 % (34.1-44.9); Hemoglobin 8.2 g/dl (12.0-16.0); Immature Granulocytes # (auto) 0.02 K/uL (0.00-0.02); Immature Granulocytes % (auto) 0.4 %; Lymphocytes % (auto) 28.7 %; Mean Corpuscular Hemoglobin 29.5 pg (25.0-34.0); Mean Corpuscular Hgb Conc 31.2 g/dL (32.0-36.0); Mean Corpuscular Volume 94.6 fL (80.0-100.0); Mean Platelet Volume 10.5 fL (9.4-12.3); Monocytes # (auto) 0.57 K/uL (0.24-0.82); Monocytes % (auto) 10.2 %; Neutrophils # (auto) 3.08 K/uL (1.4-6.5); Neutrophils % (auto) 55.1 %; Platelet Count 336 K/uL (130-400); RDW Coefficient of Variation 18.3 % (11.5-14.5); RDW Standard Deviation 62.8 fL (36.4-46.3); Red Blood Count 2.78 M/uL (3.93-5.22); White Blood Count 5.58 K/ul (4.8-10.8)
[2022-11-01 08:10] LABS: BUN Creatinine Ratio 83.3 (10-20); Calcium 8.4 mg/dl (8.5-10.1); Creatinine Clr Calc Pharmacy 128.9 ml/min; Est GFR (African American) 119.5 ml/min; Est GFR (Non-African American) 103.1 ml/min; Magnesium 1.9 mg/dl (1.7-2.4)
[2022-11-01] MEDS: amLODIPine BESYLATE 5 MG TAB PO SCH (08:41)
[2022-11-01] MEDS: ASPIRIN 81 MG ECTAB PO SCH (08:41)
[2022-11-01] MEDS: ANASTROZOLE 1 MG TAB PO SCH (08:41)
[2022-11-01] MEDS: PANTOprazole 40 MG TAB PO SCH (08:42)
[2022-11-01] MEDS: DOCUSATE SODIUM/SENNA 50/8.6MG TAB PO SCH ×2 (08:44→21:26)
[2022-11-01] MEDS: NYSTATIN CR 15 GM TUBE EXT SCH ×2 (09:39→21:23)
[2022-11-01] MEDS: NYSTATIN POWDER 15GM BTL EXT SCH ×2 (09:39→21:23)
[2022-11-01] MEDS: COLLAGENASE OINT 30 GM TUBE EXT SCH (09:40)
--- NOTE | 2022-11-01 13:40 | XRay Report ---
KUB HISTORY: persistent vomiting COMPARISON: Abdomen and pelvis CT 05/20/2021. KUB 05/16/2021. FINDINGS: Multiple nondilated gas-filled loops of large and small bowel seen throughout the abdomen. No evidence for bowel obstruction. There is a small to moderate amount of well-formed stool within th e colon. Chronic deformity again noted within the lumbar spine, pelvis, and hips. Prior cholecystecto my. No renal calculi. No ureteral calculi. No pneumoperitoneum or pneumatosis. IMPRESSION: 1. No evidence for bowel obstruction. 2. Small to moderate amount of well-formed stool within the colon. ACT 112: Negative or not required by law. Electronically signed by: Joseph Sornesen M.D. 11/01/2022 1:39 PM
[2022-11-01] MEDS: SUCRALFATE 1 GM/10 ML UDC PO SCH ×2 (17:16→21:22)
[2022-11-01] MEDS: ENOXAPARIN INJ 40 MG/0.4 ML SYR SQ SCH (17:16)
[2022-11-01] MEDS: POLYETHYLENE (MIRALAX) 17 GM PACK PO SCH (17:19)
--- NOTE | 2022-11-01 22:14 | Hospitalist Progress Note ---
Date of Service November 01, 2022 Assessment & Plan (1) Nausea: Plan: 2nd to brewing UTI? 2nd other infectious process? GERD? constipation not present. KUB x-ray with no ileus or SBO; mild stool only. she is cholecystectomy state. urine cx pending but u/a was very clean and not suggestive of UTI. add carafate QID to her PPI in the event this is gastritis/esophagitis/PUD. f/u on urine cx. check lipase in am. recent LFTs normal. if nausea persists -- GI consultation?? (2) Sepsis associated hypotension: Plan: resolved Presented with hypothermia, hypotension, and acute encephalopathy secondary to b/l wound infections on lower extremities with surrounding erythema Right leg posterior wound status post debridement by general surgery Wound cultures grew Proteus vulgaris and MSSA from right leg, and MSSA and corynebacterium on left leg Blood cultures negative while here abx completed - finished cefdinir course 10/27/22 Continue local wound care (3) Encephalopathy: Plan: Metabolic - 2nd to #1 - resolved (4) Anemia: Plan: Hemoglobin remains mid 8s; stable from previous Seen by hematology Transferrin saturation normal at 27%, ferritin 219, B12 and folate normal at 733 and 17, respectively TSH normal at 3.2 Hematology recommended SPEP - faint M-spike in gamma globulin region No evidence of hemolysis with normal total bilirubin and normal LDH reticulocyte count is normal sent serum immunofixation will need f/u with hematology for this repeat cbc in am for stability (5) Constipation: Plan: cont bowel regimen resolved KUB x-ray from today noted (6) Thrombocytopenia: Plan: likely was due to sepsis resolved repeat cbc in am (7) Nausea & vomiting: Plan: resolved, now has recurred - see #1 above (8) Wound infection: Plan: right thigh - cont local wound care (optifoam) (9) Stage III pressure ulcer: Plan: RLE x 2 s/p debridement by surgery on 10/20 continue local wound care - optifoam, santyl's, etc I looked at the right lateral wound yesteray and it was clean (10) Elevated LFTs: Plan: Initially thought to be from shock liver LFTs are nearly normal on most recent check passive congestion of liver from CHF may also have contributed Cont to trend LFTs likely repeat in 48 hours Hold statin until they are fully back to normal (11) Hypertension: Plan: controlled cont amlodipine (12) Breast cancer: Plan: Diagnosed in March 2022, poor candidate for mastectomy as per oncology -Continue home anastrozole 1 mg p.o. daily as per oncology recommendation Follow with oncology as an outpatient (13) Hypernatremia: Plan: resolved (14) Hypothyroidism: Plan: TSH wnl Continue home levothyroxine 50 mcg daily (15) Heart failure: Plan: acute/chronic diastolic CHF - acute component clinically resolved diuretics d/c Echo 05/16/2021: EF 55-60%. Mild LVH, no wma, left ventricular systolic function is normal. Echo this admission - normal EF, grade 1 diastolic dysfunction; no change from prior repeat BMP am (16) History of CVA (cerebrovascular accident): Plan: Left parietal CVA in 2020 Continue aspirin 81 mg daily for secondary prevention (17) Severe obstructive sleep apnea: Plan: Continue CPAP at night with 2 L NC Plan DVT prophylaxis -- Lovenox Disposition [facility] - Referrals have been made to [facility] - latter may have bed 11/03/22 updated multiple times in the past week Admission and Anticipated Discharge Date Admission Date: October 18, 2022 Subjective today was better day from GI perspective she had no nausea or emesis today tolerated breakfast; flowsheets show she consumed 100% of her meal no abd pain no diarrhea no new complaints Review of Systems Review of Systems: gen - tired/fatigued cv - no chest pain pulm - no wheezing/cough/congestion/dyspnea GI - no pain - [place] remains in place Physical Exam Physical Exam: gen - NAD, looks better today neck - no JVD mouth - MMM heart - RRR, s1 s2, no murmur lungs - CTA b/l abd - soft NT BS+ ND musculo - b/l leg deformities from spina bifida; edema improved b/l legs skin - scaly skin on LEs; no cellulitis present any location on legs; stasis changes on legs psych - a/o x 3 Results & Data Results & Data ([facility]) Vital Signs (Past 12 Hours) Vital Signs Temp Pulse Resp BP Pulse Ox O2 Del Method 11/01/22 21:05 36.7 C 74 16 123/69 94 Room Air 11/01/22 15:05 36.9 C 80 16 119/56 L 93 Room Air Laboratory Results Laboratory Results - last 24 hr 11/01/22 11/01/22 06:58 06:58 WBC 5.58 RBC 2.78 L Hgb 8.2 L Hct 26.3 L MCV 94.6 MCH 29.5 MCHC 31.2 L RDW Std Deviation 62.8 H RDW Coeff of Deanna 18.3 H Plt Count 336 MPV 10.5 Immature Gran % (Auto) 0.4 Neut % (Auto) 55.1 Lymph % (Auto) 28.7 [place] % (Auto) 10.2 Eos % (Auto) 4.7 Baso % (Auto) 0.9 Neut # (Auto) 3.08 Lymph # (Auto) 1.60 [place] # (Auto) 0.57 Eos # (Auto) 0.26 Baso # (Auto) 0.05 Immature Gran # (Auto) 0.02 Sodium 144 Potassium 4.0 Chloride 106 Carbon Dioxide 35 H Anion Gap 3 BUN 35 H Creatinine 0.42 L Est Cr Clr Drug Dosing 128.9 Est GFR ( Amer) 119.5 Est GFR (Non-Af Amer) 103.1 BUN/Creatinine Ratio 83.3 H Glucose 85 Calcium 8.4 L Magnesium 1.9 Diagnostic Findings KUB X-Ray 11/01/22 10:49 KUB HISTORY: persistent vomiting COMPARISON: Abdomen and pelvis CT 05/20/2021. KUB 05/16/2021. FINDINGS: Multiple nondilated gas-filled loops of large and small bowel seen throughout the abdomen. No evidence for bowel obstruction. There is a small to moderate amount of well-formed stool within the colon. Chronic deformity again noted within the lumbar spine, pelvis, and hips. Prior cholecystectomy. No renal calculi. No ureteral calculi. No pneumoperitoneum or pneumatosis. IMPRESSION: 1. No evidence for bowel obstruction. 2. Small to moderate amount of well-formed stool within the colon. ACT 112: Negative or not required by law. Electronically signed by: Joseph Sorensen M.D. 11/01/2022 1:39 PM PG Care Time/CCT Total # of Minutes Spent Total Time Spent with Patient: Total time spent is greater than 50% in coordination of care (as documented) at patient's floor/unit and/or counseling patient: Coding Level of Care Code 34106 Subseq Hosp Care Lvl 2 Diagnoses Nausea R11.0 Sepsis associated hypotension A41.9; I95.9 Encephalopathy G93.40 Anemia D64.9 Constipation K59.00 Thrombocytopenia D69.6 Nausea & vomiting R11.2 Wound infection T14.8XXA; L08.9 Stage III pressure ulcer L89.93 Elevated LFTs R79.89 Hypertension I10 Hypertension type: primary hypertension Breast cancer C50.919 Hypernatremia E87.0 Hypothyroidism E03.9 Heart failure I50.9 History of CVA (cerebrovascular accident) Z86.73 Severe obstructive sleep apnea G47.33 (1) Hypertension Hypertension type: primary hypertension Qualified Code(s): I10 - Essential (primary) hypertension
[2022-11-02] MEDS: LEVOTHYROXINE SODIUM 50 MCG TABLET PO SCH (05:50)
[2022-11-02 07:18] LABS: Basophils # (auto) 0.05 K/uL (0-0.2); Basophils % (auto) 0.7 %; Eosinophils # (auto) 0.23 K/uL (0-0.50); Eosinophils % (auto) 3.2 %; Hematocrit (blood only) 25.4 % (34.1-44.9); Hemoglobin 7.9 g/dl (12.0-16.0); Immature Granulocytes # (auto) 0.02 K/uL (0.00-0.02); Immature Granulocytes % (auto) 0.3 %; Lymphocytes # (auto) 1.54 K/uL (1.2-3.4); Lymphocytes % (auto) 21.3 %; Mean Corpuscular Hemoglobin 29.3 pg (25.0-34.0); Mean Corpuscular Hgb Conc 31.1 g/dL (32.0-36.0); Mean Corpuscular Volume 94.1 fL (80.0-100.0); Mean Platelet Volume 10.1 fL (9.4-12.3); Monocytes # (auto) 0.67 K/uL (0.24-0.82); Monocytes % (auto) 9.3 %; Neutrophils # (auto) 4.72 K/uL (1.4-6.5); Neutrophils % (auto) 65.2 %; Platelet Count 313 K/uL (130-400); RDW Coefficient of Variation 18.1 % (11.5-14.5); RDW Standard Deviation 61.1 fL (36.4-46.3); White Blood Count 7.23 K/ul (4.8-10.8)
[2022-11-02 07:38] LABS: RBC Morphology Unremarkable
[2022-11-02 07:43] LABS: BUN Creatinine Ratio 84.6 (10-20); Calcium 8.4 mg/dl (8.5-10.1); Creatinine Clr Calc Pharmacy 138.8 ml/min; Est GFR (African American) 122.5 ml/min; Est GFR (Non-African American) 105.7 ml/min; Potassium 3.9 mmol/L (3.5-5.1)
[2022-11-02] MEDS: COLLAGENASE OINT 30 GM TUBE EXT SCH (08:01)
[2022-11-02] MEDS: ASPIRIN 81 MG ECTAB PO SCH (08:01)
[2022-11-02] MEDS: amLODIPine BESYLATE 5 MG TAB PO SCH (08:01)
[2022-11-02] MEDS: SUCRALFATE 1 GM/10 ML UDC PO SCH (08:01)
[2022-11-02] MEDS: ANASTROZOLE 1 MG TAB PO SCH (08:01)
[2022-11-02] MEDS: NYSTATIN POWDER 15GM BTL EXT SCH (08:02)
[2022-11-02] MEDS: NYSTATIN CR 15 GM TUBE EXT SCH (08:02)
[2022-11-02] MEDS: PANTOprazole 40 MG TAB PO SCH (08:02)
[2022-11-02] MEDS: DOCUSATE SODIUM/SENNA 50/8.6MG TAB PO SCH (08:02)
[2022-11-02] MEDS: POLYETHYLENE (MIRALAX) 17 GM PACK PO SCH (08:03)
--- NOTE | 2022-11-02 11:19 | Discharge Summary ---
Date of Service November 02, 2022 Admission HPI Per Admitting Provider Minerva Arreguin is a 72-year-old female with past medical history significant for congenital spina bifida with shortened, deformed lower extremities edema, CAD, CVA, heart failure, hypertension, and bilateral stage III pressure ulcers of left posterior knee, right posterior thigh, and right posterior knee is presenting today with chills at home. For the past week she has been cold, fatigued, and generally weak. They have not been able to get a temperature reading at home because it is not reading on him to monitor. 2 days ago her noticed she was a little bit more slow to answer questions and drifted o ff and thought, but no focal numbness/weakness, slurred speech or word finding difficulties. He has not been outside over the past week, he is not in their home. There are no sick contacts at home. She does have chronic wounds due to her congenital spina bifida, follows with wound clinic. Left leg has been more red over the past week, she has chronic drainage from her wounds with is unchanged. She is wheelchair-bound at baseline so offloading pressure to the wounds has been difficult. On presentation, she has a temperature recorded of 34.1 C (93.4 F) obtained rectally, BP 96/53, without tachycardia or hypoxia. Labs significant for WBC 4.62, Hgb 10.6, AST 92, ALT 94, alk phos 144. Blood cultures obtained in ED. CXR shows mild cardiomegaly with no acute cardiopulmonary abnormality. She was placed on a David hugger around 11 AM, given a bolus of 1L NS, and start empirically on daptomycin and cefepime for presumed cellulitis/sepsis from her wounds. Principal Diagnosis Sepsis, wound infection Acute encephalopathy Discharge Exam Constitutional WD/WN, vitals as above Eyes + anicteric sclerae Neck trachea midline, no thyromegaly Respiratory normal respiratory effort, lungs clear to auscultation Cardiovascular Rate/Rhythm: regular rate and regular rhythm Heart Sounds: no murmur Extremities: + edema (Lymphedema bilateral lower extremities) Chest (Breasts) Chest: normal inspection of chest Gastrointestinal (Abdomen) normal bowel sounds, soft, nontender, no hepatosplenomegaly Musculoskeletal Extremities: + extremities abnormal to inspection (With congenitally malformed feet with some toes on the end of legs) Neurologic moves all extremities, + focal motor deficit (Paralysis of lower extremities, 3/5 strength of RUE chronic) and awake Psychiatric A+Ox3, euthymic affect Lymphatic + lymphedema (Lower extremities) Discharge Data Allergies Allergy/AdvReac Type Severity Reaction Status Date / Time nalidixic acid Allergy Unknown Unknown Verified 09/30/22 13:05 Consultations 10/18/22 10:39 ED Decision to Admit Stat 10/19/22 11:55 Consult General Surgery Routine 10/20/22 14:11 Consult Infectious Diseases Routine 10/22/22 15:48 Consult Hematology Routine Hospital Course (1) Sepsis associated hypotension: resolved Presented with hypothermia, hypotension, and acute encephalopathy secondary to b/l wound infections on lower extremities with surrounding erythema Right leg posterior wound status post debridement by general surgery Wound cultures grew Proteus vulgaris and MSSA from right leg, and MSSA and corynebacterium on left leg Blood cultures negative while here abx completed - finished cefdinir course 10/27/22 Continue local wound care (2) Nausea: secondary to antibiotic use (common fo rher) and likely some stress-induced gastritis Improved on carafate is moving bowels regularly now vandana reg diet at time of discharge LFTs much improved, is s/p cholecystectomy no new signs of infection, no abdominal tenderness or pain zofran prn continue Carafate cx 10 day course, Protonix once daily (3) Encephalopathy: Metabolic - 2nd to sepsis, hypernatremia - resolved (4) Anemia: Hemoglobin remains mid 8s; stable from previous Seen by hematology Transferrin saturation normal at 27%, ferritin 219, B12 and folate normal at 733 and 17, respectively TSH normal at 3.2 Hematology recommended SPEP - faint M-spike in gamma globulin region No evidence of hemolysis with normal total bilirubin and normal LDH reticulocyte count is normal sent serum immunofixation -pending at time of discharge will need f/u with hematology for this as outpatient within 2 weeks follow CBC in 2-3 days at SNF (5) Constipation: cont bowel regimen resolved KUB x-ray 11/01 with mild-mod constipation (6) Thrombocytopenia: likely was due to sepsis resolved (7) Wound infection: right thigh - cont local wound care (optifoam), with Snatyl also sacral wound (8) Stage III pressure ulcer: RLE x 2 s/p debridement by surgery on 10/20 continue local wound care - optifoam, santyl's, etc (9) Elevated LFTs: Initially thought to be from shock liver LFTs are nearly normal on most recent check passive congestion of liver from CHF may also have contributed as well as Daptomycin use CK normal improved ok to resume statin on discharge follow CMP in 2-3 days (10) Hypertension: controlled cont amlodipine (11) Breast cancer: Diagnosed in March 2022, poor candidate for mastectomy as per oncology -Continue home anastrozole 1 mg p.o. daily as per oncology recommendation Follow with oncology as an outpatient (12) Hypernatremia: resolved (13) Hypothyroidism: TSH wnl Continue home levothyroxine 50 mcg daily (14) Heart failure: acute/chronic diastolic CHF - acute component clinically resolved diuretics d/c'd Echo 05/16/2021: EF 55-60%. Mild LVH, no wma, left ventricular systolic function is normal. Echo this admission - normal EF, grade 1 diastolic dysfunction; no change from prior (15) History of CVA (cerebrovascular accident): Left parietal CVA in 2020 Continue aspirin 81 mg daily for secondary prevention (16) Severe obstructive sleep apnea: Continue CPAP at night with 2 L NC Plan DVT prophylaxis -- Lovenox Disposition SNF -today Total Time Total Time Spent Total Time Spent (In Minutes): 35 min Discharge Plan Discharge Items Patient Disposition: Transfer [facility] Reason For Visit: WOUND INFECTION Discharge Diagnosis: Sepsis, wound infection, acute encephalopathy Condition on Discharge: Good Activity: As commented below Bathing: No limitations Exercise/Sports: Gradually increase as tolerated Non-emergency contact: Primary Care Provider Call non-emergency contact if: you have any medication questions, your symptoms worsen and you have a fever Follow-up/Referrals: Fartun Frank PA-C [Primary Care Provider] - Diet: Heart Healthy Addtl Attending Provider Instructions: You have completed all antibiotics for your wound infections and your sepsis is resolved. Continue all wound care as directed by Wound Care nurse instructions, offloading pressure frequently. Please look into a better fitting wheelchair as per PT recommendations. For your anemia, please follow up with Hematology within 2 weeks after discharge. Please have a CBC and CMP blood work checked in 2-3 days. Pending Studies at Discharge: Yes (SPEP) Stand-Alone Forms: [facility] Skilled Items Patient informed of condition?: Yes DNR: No Discharge Level of Care: Skilled Communicable Disease: No Discharge Prognosis: Improving Lines: None Urinary Catheter: No Medications and DC Order Prescriptions: New polyethylene glycol 3350 [Miralax] 17 gram Powder In Packet 17 g PO DAILY Qty: 60 0RF sucralfate 100 mg/mL Suspension 1 g PO ACHS 9 Days Qty: 360 0RF sennosides-docusate sodium [Senokot-S] 8.6-50 mg Tablet 1 tab PO BID Qty: 60 0RF Santyl 250 unit/gram Ointment 1 applic EXT DAILY Qty: 30 0RF Rx Instructions: to wound ondansetron 4 mg Tablet,Disintegrating 4 mg PO Q6H PRN (Reason: nausea) Qty: 15 0RF nystatin 100,000 unit/gram Cream 1 applic EXT BID Qty: 30 0RF Rx Instructions: to rash on leg nystatin [Nystop] 100,000 unit/gram Powder 1 applic EXT BID 30 Days Qty: 30 0RF Rx Instructions: apply under skin folds Continued pantoprazole 40 mg tablet,delayed release (DR/EC) 40 mg PO DAILY albuterol sulfate 90 mcg/actuation HFA aerosol inhaler 2 puff Inhalation DIRECTED PRN (Reason: Shortness Of Breath Or Wheezing) (DME) Oxygen Home Liters Per Minute See Rx Instructions .ROUTE .MEDSUPPLY Qty: 1 0RF Rx Instructions: As directed - 2 L NC O2 at bedtime & with naps atorvastatin 40 mg Tablet 40 mg PO QAM Qty: 30 2RF amlodipine [Norvasc] 5 mg Tablet 5 mg PO QAM Qty: 30 2RF aspirin 81 mg Tablet,Delayed Release (Dr/Ec) 81 mg PO QAM Qty: 90 3RF Rx Instructions: purchase dqee-yfd-caphszs anastrozole 1 mg tablet 1 mg PO DAILY levothyroxine 50 mcg tablet 50 mcg PO DAILY Discharge Orders: Discharge Order (Routine); Ordered 11/02/22 Ordered By: Susi Card Admission Data Admit Date/Time: 10/18/22 11:51 Attending Provider: Susi Card Admit Provider: Gary Olmos Primary Care Provider: Fartun Frank Other Providers: [facility] ; [facility] ; [facility] [place] ; Gary Olmos ; Nicky Wilcox ; Rajiv Leger ; Barbara Soto ; Sasha Crowley ; Lory Tejeda ; Dianne Carrillo ; Patricia Caldera ; Steve Lazaro ; Teressa Quintana ; Sarah Mojica ; Srikanth Ferro ; Vladimir Koo ; Naveed Holguin ; Italo Meléndez Jr ; Mickey Pierre ; Jessee Gallegos ; Ashlee Short ; Bharathi Moon ; Jassi Jarvis ; [facility] Coding Level of Care Code D/C DAY MANAGEMENT >30 MINS Diagnoses Sepsis associated hypotension A41.9; I95.9 Nausea R11.0 Encephalopathy G93.40 Anemia D64.9 Constipation K59.00 Thrombocytopenia D69.6 Wound infection T14.8XXA; L08.9 Stage III pressure ulcer L89.93 Elevated LFTs R79.89 Hypertension I10 Hypertension type: primary hypertension Breast cancer C50.919 Hypernatremia E87.0 Hypothyroidism E03.9 Heart failure I50.9 History of CVA (cerebrovascular accident) Z86.73 Severe obstructive sleep apnea G47.33
== END 2022-11-02 12:43 | DRG 853 ==
LOC: ED 09:28 → SUATTDRO 11:51 → EDINP 11:51 → 1E 10-19 12:11 → 2S 10-19 22:47 → 3N 10-23 22:29 → 3W 10-27 21:46

== ENCOUNTER 2022-12-25 13:48 | Inpatient (IN) ==
[2022-12-25] MEDS ORDERED: SODIUM CHLORIDE 0.9% 1000ML 1,000 ML IV ONE (15:21)
[2022-12-25 15:27] LABS: Partial Thromboplastin Ratio 1.1; Prothrombin Time 10.9 Seconds (9.0-12.0)
--- NOTE | 2022-12-25 15:50 | XRay Report ---
XR chest 1V portable HISTORY: 72 years-old Female Sepsis acute sepsis COMPARISON: Chest radiograph 10/26/2022 TECHNIQUE: AP view of the chest FINDINGS: Cardiomediastinal and hilar silhouettes are unchanged. No pneumothorax, pleural effusion, airspace co nsolidation or pulmonary edema. Unchanged left hemidiaphragmatic elevation. Bones appear grossly inta ct. Unchanged scoliosis of the spine. IMPRESSION: No acute process. ACT 112: Negative or not required by law. The above report was generated using voice recognition software. It may contain grammatical, syntax o r spelling errors. Electronically signed by: Saeid Chong M.D. 12/25/2022 3:48 PM
--- NOTE | 2022-12-25 15:59 | Emergency Department Note ---
History of Present Illness General Chief complaint: Infection, Wound Stated complaint: INFECTION LEFT LEG Time Seen by Provider: 12/25/22 14:08 History of Present Illness Provider complaint: Bilateral leg wounds Onset (ago): year(s) 1 72-year-old female presents emergency department with family member for bilateral leg wounds. Patient has a history of pressure ulcers, spina bifida and is paraplegic. She states she has had the wounds on her legs for more than a year. She states that she today she is not feeling well so her her family member took her temperature and found it to be very low. She reports now cough. No nausea or vomiting. No abdominal pain. Home Medications Medication Instructions Recorded Confirmed Type albuterol sulfate 90 mcg/actuation 2 puff inhalation DIRECTED PRN 09/21/18 12/23/22 History aerosol inhaler Shortness Of Breath Or Wheezing Oxygen Home #1 ea 05/21/21 12/23/22 Rx amlodipine 5 mg tablet (Norvasc) 5 mg PO QAM #30 tabs 05/21/21 12/23/22 Rx aspirin 81 mg tablet,delayed 81 mg PO QAM #90 tabs 05/21/21 12/23/22 Rx release atorvastatin 40 mg tablet 40 mg PO QAM #30 tabs 05/21/21 12/23/22 Rx pantoprazole 40 mg tablet,delayed 40 mg PO DAILY 10/20/21 12/23/22 History release anastrozole 1 mg tablet 1 mg PO DAILY 10/23/22 12/23/22 History levothyroxine 50 mcg tablet 50 mcg PO DAILY 10/23/22 12/23/22 History collagenase clostridium histo. 250 1 applic EXT DAILY #30 grams 11/02/22 12/23/22 Rx unit/gram topical ointment (Santyl) nystatin 100,000 unit/gram topical 1 applic EXT BID #30 grams 11/02/22 12/23/22 Rx cream ondansetron 4 mg disintegrating 4 mg PO Q6H PRN nausea #15 tabs 11/02/22 12/23/22 Rx tablet sennosides 8.6 mg-docusate sodium 1 tab PO BID #60 tabs 11/02/22 12/23/22 Rx 50 mg tablet (Senokot-S) polyethylene glycol 3350 17 gram 17 g PO DAILY PRN constipation 12/09/22 0 12/23/22 History oral powder packet (Miralax) Allergies Allergy/AdvReac Type Severity Reaction Status Date / Time nalidixic acid Allergy Unknown Unknown Verified 12/23/22 13:01 Past Med/Surg History Medical History Acute alteration in mental status Acute CHF (congestive heart failure) Acute [id number]-mmzgeryxj myocardial infarction Cellulitis Heart failure Hiatal hernia Hypertension Hypothermia Hypothyroidism Lymphedema of both lower extremities Meningitis spinal Neurogenic bladder (06/21/13) Paraplegia (06/21/13) Spina bifida (06/21/13) Takotsubo cardiomyopathy Traumatic open wound of left lower leg Surgical History H/O bone graft H/O section Hx of cholecystectomy Family History Father Hypertension Myocardial infarction Herniated disc Mother Myocardial infarction Colorectal cancer Uterine cancer Other Family history non-contributory Social History Smoking Status: Never smoker Second Hand Exposure: No; Hx Alcohol Use: No Hx Substance Use: No Preferred Language: Syrian Communication Ability: Effective Visual Impairment: Limited Hearing Ability: Normal Security Auditor Required: No Beliefs That Will Affect Care: Moravian Moravian Beliefs: Worship marital status: Current Living Situation: Spouse current occupational status: retired How many Children do You have: 2 Feels Safe at Home: Yes caffeine: Yes (tea) during the past year weight has: increased > 10 lbs Physical Activity Frequency: Does not Exercise Do you think of yourself as: straight/heterosexual Gender Identity: Female Assistive Devices: Wheelchair Physical Exam Vital Signs Vital Signs - 24 hr 12/25/22 13:54 12/25/22 15:16 12/25/22 16:00 Temperature 34.6 C L 34.4 C L Temperature Source Oral Rectal Pulse Rate 78 Pulse Rate [Apical] 73 Pulse Rate from SpO2 Sensor Respiratory Rate 19 16 Respiratory Effort / Characteristics Non-Labored Spontaneous Respiratory Depth Normal Blood Pressure 139/84 Blood Pressure [Right Arm] 104/53 L Blood Pressure Mean 102 Blood Pressure Mean [Right Arm] 70 Pulse Oximetry 99 97 Oxygen Delivery Method Room Air Room Air Sepsis Recent Fever Within 48 Hours No Sepsis New/Unexplained Change in Mental Status N/A Sepsis Action Taken by Nursing No Action Required 12/25/22 15:45 12/25/22 16:00 12/25/22 16:01 Temperature Temperature Source Pulse Rate 77 73 74 Pulse Rate [Apical] Pulse Rate from SpO2 Sensor 77 74 69 Respiratory Rate 15 12 12 Respiratory Effort / Characteristics Respiratory Depth Blood Pressure Blood Pressure [Right Arm] Blood Pressure Mean Blood Pressure Mean [Right Arm] Pulse Oximetry 98 97 96 Oxygen Delivery Method Sepsis Recent Fever Within 48 Hours Sepsis New/Unexplained Change in Mental Status Sepsis Action Taken by Nursing 12/25/22 16:01 12/25/22 16:15 12/25/22 16:30 Temperature Temperature Source Pulse Rate 83 76 Pulse Rate [Apical] Pulse Rate from SpO2 Sensor 83 77 Respiratory Rate 18 14 Respiratory Effort / Characteristics Respiratory Depth Blood Pressure 104/53 L Blood Pressure [Right Arm] Blood Pressure Mean 70 Blood Pressure Mean [Right Arm] Pulse Oximetry 98 96 Oxygen Delivery Method Sepsis Recent Fever Within 48 Hours Sepsis New/Unexplained Change in Mental Status Sepsis Action Taken by Nursing 12/25/22 16:45 12/25/22 17:00 12/25/22 17:00 Temperature Temperature Source Pulse Rate 69 72 Pulse Rate [Apical] Pulse Rate from SpO2 Sensor 70 73 Respiratory Rate 13 12 Respiratory Effort / Characteristics Respiratory Depth Blood Pressure 116/71 Blood Pressure [Right Arm] Blood Pressure Mean 86 Blood Pressure Mean [Right Arm] Pulse Oximetry 93 93 Oxygen Delivery Method Sepsis Recent Fever Within 48 Hours Sepsis New/Unexplained Change in Mental Status Sepsis Action Taken by Nursing 12/25/22 16:45 12/25/22 17:56 12/25/22 19:22 Temperature 34.7 C L 36.5 C Temperature Source Rectal Oral Pulse Rate Pulse Rate [Apical] 80 Pulse Rate from SpO2 Sensor Respiratory Rate 19 Respiratory Effort / Characteristics Non-Labored Respiratory Depth Blood Pressure Blood Pressure [Right Arm] 150/76 H Blood Pressure Mean Blood Pressure Mean [Right Arm] 100 Pulse Oximetry 95 Oxygen Delivery Method Room Air Sepsis Recent Fever Within 48 Hours Sepsis New/Unexplained Change in Mental Status Sepsis Action Taken by Nursing Physical Exam GENERAL: Paraplegic wheelchair-bound. HENT: Exam performed. -Head: Normocephalic and atraumatic. EYES: Conjunctivae and EOM are normal. Right eye exhibits no discharge. Left eye exhibits no discharge. No scleral icterus. CV: Normal rate, regular rhythm, normal heart sounds and intact distal pulses. There is no peripheral edema. Palpable radial pulses bue. PULM/CHEST: Effort normal and breath sounds normal. No respiratory distress. No stridor. She has no wheezes. She has no rales. SKIN: Wounds on the bilateral lower extremities that have foul-smelling discharge to them. Course Course 1408: The patient was evaluated in room A2. A complete history and physical exam was performed Cardiac monitoring: An order was placed for continuous cardiac monitoring. The monitor shows a rate of 70 with sinus rhythm interpreted by me Patient hypothermic via oral temperature. Will check rectal temperature and initiate sepsis protocol. 1520: Patient was found to have a true rectal temperature of 34.4. Patient placed on David hugger. 1800: Patient's repeat temperature is within normal limits 36.5. Hugger turned off. 1840: Vital signs stable. Labs within normal limits including negative white blood cell count negative lactic acid procalcitonin negative. Could be source of infection. Discussed the case with patient and did not feel comfortable going home at this time. Patient will be admitted to the [facility] ospitalist team. Dr. Olmos team notified. Administered Medications Discontinued Medications Sodium Chloride (Nss 1000ml) 1,000 mls @ 999 mls/hr IV .Q1H1M ONE Stop: 12/25/22 16:21 Last Infusion: 12/25/22 18:22 Dose: 0 mls/hr Documented By: Admin: 12/25/22 15:38 Dose: 999 mls/hr Documented By: KELLY Critical Care Time Critical Care Time: Yes Total Critical Care Time: 67 I have personally spent greater than 67 minutes of critical care time in the direct management of this patient. This includes bedside care, interpretation of diagnostic studies, and testing, discussion with consultants, patient, and family members, and other required patient management activities. This 67 minutes is in excess of all separately billable procedures. Medical Decision Making Laboratory Data Attestation: I reviewed the patient's lab results. 12/25/22 14:58 12/25/22 14:58 Lab Results 12/25/22 12/25/22 12/25/22 Range/Units 14:58 14:58 14:58 WBC 5.98 (4.8-10.8) K/ul RBC 3.82 L (4.20-5.40) M/uL Hgb 11.1 L (12.0-16.0) g/dl Hct 34.0 L (37.0-47.0) % MCV 89.0 (80.0-100.0) fL MCH 29.1 (25.0-34.0) pg MCHC 32.6 (32.0-36.0) g/dL RDW Std Deviation 54.5 H (36.4-46.3) fL RDW Coeff of Deanna 17.0 H (11.5-14.5) % Plt Count 208 (130-400) K/uL MPV 11.6 (9.4-12.4) fL Immature Gran % (Auto) 0.2 % Neut % (Auto) 57.6 % Lymph % (Auto) 27.9 % [place] % (Auto) 8.4 % Eos % (Auto) 5.2 % Baso % (Auto) 0.7 % Neut # (Auto) 3.45 (1.40-6.50) K/uL Lymph # (Auto) 1.67 (1.2-3.4) K/uL [place] # (Auto) 0.50 (0.11-0.59) K/uL Eos # (Auto) 0.31 (0-0.50) K/uL Baso # (Auto) 0.04 (0-0.2) K/uL Immature Gran # (Auto) 0.01 (0.01-0.20) K/uL PT 10.9 (9.0-12.0) Seconds INR 1.0 (0.9-1.1) APTT 31.0 (21.0-31.0) Seconds PTT Ratio 1.1 Sodium 145 (136-145) mmol/L Potassium 4.3 (3.5-5.1) mmol/L Chloride 107 (98-107) mmol/L Carbon Dioxide 31 (21-32) mmol/L Anion Gap 7 (3-11) BUN 44 H (6-23) mg/dl Creatinine 0.71 (0.6-1.2) mg/dl Est Cr Clr Drug Dosing Not Reportable Est GFR ( Amer) 99.3 ml/min Est GFR (Non-Af Amer) 85.7 ml/min BUN/Creatinine Ratio 62.0 H (10-20) Glucose 88 (70-99(Fasting)) mg/dl Lactate (0.4-2.0) mmol/L Calcium 10.5 H (8.5-10.1) mg/dl Magnesium 2.0 (1.7-2.4) mg/dl Total Bilirubin 0.4 (0.2-1.0) mg/dl Direct Bilirubin 0.1 (0-0.2) mg/dl AST 44 H (13-39) U/L ALT 46 (7-52) U/L Alkaline Phosphatase 109 H (34-104) U/L Troponin I High Sens 6.5 (0-14) pg/ml Total Protein 7.8 (6.0-8.3) gm/dl Albumin 4.1 (3.4-5.0) gm/dl Procalcitonin (0-0.5) ng/ml Urine Color Urine Appearance (Clear) Urine pH (4.5-7.5) Ur Specific [place] (1.000-1.030) Urine Protein (Negative) Urine Glucose (UA) (Negative) Urine Ketones (Negative) Urine Blood (Negative) Urine Nitrite (Negative) Urine Bilirubin (Negative) Urine Urobilinogen (Negative) Ur Leukocyte Esterase (Negative) Urine WBC (Auto) (0-5) /hpf Urine RBC (Auto) (0-4) /hpf U Hyaline Cast (Auto) (0-5) /lpf U Epithel Cells (Auto) (0-5) /lpf Urine Bacteria (Auto) (Negative) SARS-CoV-2, RNA, NAAT (NEGATIVE) 12/25/22 12/25/22 12/25/22 Range/Units 14:58 14:58 16:33 WBC (4.8-10.8) K/ul RBC (4.20-5.40) M/uL Hgb (12.0-16.0) g/dl Hct (37.0-47.0) % MCV (80.0-100.0) fL MCH (25.0-34.0) pg MCHC (32.0-36.0) g/dL RDW Std Deviation (36.4-46.3) fL RDW Coeff of Deanna (11.5-14.5) % Plt Count (130-400) K/uL MPV (9.4-12.4) fL Immature Gran % (Auto) % Neut % (Auto) % Lymph % (Auto) % [place] % (Auto) % Eos % (Auto) % Baso % (Auto) % Neut # (Auto) (1.40-6.50) K/uL Lymph # (Auto) (1.2-3.4) K/uL [place] # (Auto) (0.11-0.59) K/uL Eos # (Auto) (0-0.50) K/uL Baso # (Auto) (0-0.2) K/uL Immature Gran # (Auto) (0.01-0.20) K/uL PT (9.0-12.0) Seconds INR (0.9-1.1) APTT (21.0-31.0) Seconds PTT Ratio Sodium (136-145) mmol/L Potassium (3.5-5.1) mmol/L Chloride (98-107) mmol/L Carbon Dioxide (21-32) mmol/L Anion Gap (3-11) BUN (6-23) mg/dl Creatinine (0.6-1.2) mg/dl Est Cr Clr Drug Dosing Est GFR ( Amer) ml/min Est GFR (Non-Af Amer) ml/min BUN/Creatinine Ratio (10-20) Glucose (70-99(Fasting)) mg/dl Lactate 0.8 (0.4-2.0) mmol/L Calcium (8.5-10.1) mg/dl Magnesium (1.7-2.4) mg/dl Total Bilirubin (0.2-1.0) mg/dl Direct Bilirubin (0-0.2) mg/dl AST (13-39) U/L ALT (7-52) U/L Alkaline Phosphatase (34-104) U/L Troponin I High Sens (0-14) pg/ml Total Protein (6.0-8.3) gm/dl Albumin (3.4-5.0) gm/dl Procalcitonin < 0.05 (0-0.5) ng/ml Urine Color Yellow Urine Appearance Clear (Clear) Urine pH 6.5 (4.5-7.5) Ur Specific [place] 1.015 (1.000-1.030) Urine Protein Negative (Negative) Urine Glucose (UA) Negative (Negative) Urine Ketones Negative (Negative) Urine Blood Negative (Negative) Urine Nitrite Negative (Negative) Urine Bilirubin Negative (Negative) Urine Urobilinogen Negative (Negative) Ur Leukocyte Esterase Trace H (Negative) Urine WBC (Auto) 1-5 (0-5) /hpf Urine RBC (Auto) 0-4 (0-4) /hpf U Hyaline Cast (Auto) 0 (0-5) /lpf U Epithel Cells (Auto) >30 H (0-5) /lpf Urine Bacteria (Auto) Negative (Negative) SARS-CoV-2, RNA, NAAT (NEGATIVE) 12/25/22 Range/Units 16:38 WBC (4.8-10.8) K/ul RBC (4.20-5.40) M/uL Hgb (12.0-16.0) g/dl Hct (37.0-47.0) % MCV (80.0-100.0) fL MCH (25.0-34.0) pg MCHC (32.0-36.0) g/dL RDW Std Deviation (36.4-46.3) fL RDW Coeff of Deanna (11.5-14.5) % Plt Count (130-400) K/uL MPV (9.4-12.4) fL Immature Gran % (Auto) % Neut % (Auto) % Lymph % (Auto) % [place] % (Auto) % Eos % (Auto) % Baso % (Auto) % Neut # (Auto) (1.40-6.50) K/uL Lymph # (Auto) (1.2-3.4) K/uL [place] # (Auto) (0.11-0.59) K/uL Eos # (Auto) (0-0.50) K/uL Baso # (Auto) (0-0.2) K/uL Immature Gran # (Auto) (0.01-0.20) K/uL PT (9.0-12.0) Seconds INR (0.9-1.1) APTT (21.0-31.0) Seconds PTT Ratio Sodium (136-145) mmol/L Potassium (3.5-5.1) mmol/L Chloride (98-107) mmol/L Carbon Dioxide (21-32) mmol/L Anion Gap (3-11) BUN (6-23) mg/dl Creatinine (0.6-1.2) mg/dl Est Cr Clr Drug Dosing Est GFR ( Amer) ml/min Est GFR (Non-Af Amer) ml/min BUN/Creatinine Ratio (10-20) Glucose (70-99(Fasting)) mg/dl Lactate (0.4-2.0) mmol/L Calcium (8.5-10.1) mg/dl Magnesium (1.7-2.4) mg/dl Total Bilirubin (0.2-1.0) mg/dl Direct Bilirubin (0-0.2) mg/dl AST (13-39) U/L ALT (7-52) U/L Alkaline Phosphatase (34-104) U/L Troponin I High Sens (0-14) pg/ml Total Protein (6.0-8.3) gm/dl Albumin (3.4-5.0) gm/dl Procalcitonin (0-0.5) ng/ml Urine Color Urine Appearance (Clear) Urine pH (4.5-7.5) Ur Specific [place] (1.000-1.030) Urine Protein (Negative) Urine Glucose (UA) (Negative) Urine Ketones (Negative) Urine Blood (Negative) Urine Nitrite (Negative) Urine Bilirubin (Negative) Urine Urobilinogen (Negative) Ur Leukocyte Esterase (Negative) Urine WBC (Auto) (0-5) /hpf Urine RBC (Auto) (0-4) /hpf U Hyaline Cast (Auto) (0-5) /lpf U Epithel Cells (Auto) (0-5) /lpf Urine Bacteria (Auto) (Negative) SARS-CoV-2, RNA, NAAT NEGATIVE (NEGATIVE) Imaging Data Attestation: I personally reviewed and interpreted this imaging study as follo ws: My Impression: Chest x-ray negative. Airway clear. No pneumothorax. No consolidation. No cardiomegaly or cephalization.. No free air under the diaphragm. No fractures of the skeletal structures. Radiologist's Impression: Chest X-Ray 12/25/22 14:09 XR chest 1V portable HISTORY: 72 years-old Female Sepsis acute sepsis COMPARISON: Chest radiograph 10/26/2022 TECHNIQUE: AP view of the chest FINDINGS: Cardiomediastinal and hilar silhouettes are unchanged. No pneumothorax, pleural effusion, airspace consolidation or pulmonary edema. Unchanged left hemidiaphra gmatic elevation. Bones appear grossly intact. Unchanged scoliosis of the spine. IMPRESSION: No acute process. ACT 112: Negative or not required by law. The above report was generated using voice recognition software. It may contain grammatical, syntax or spelling errors. Electronically signed by: Saeid Chong M.D. 12/25/2022 3:48 PM ECG Data Attestation: I personally reviewed and interpreted this ECG as follows: Indication: + other (hypothermia) Rate (beats per minute): 73 Rhythm: + normal sinus ECG Intervals/blocks: + Normal QRS, + Normal ND and + Normal QT-c ECG ST segments: + Normal ST segments MDM Narrative 1408: The patient was evaluated in room A2. A complete history and physical exam was performed Cardiac monitoring: An order was placed for continuous cardiac monitoring. The monitor shows a rate of 70 with sinus rhythm interpreted by me Patient hypothermic via oral temperature. Will check rectal temperature and initiate sepsis protocol. 1520: Patient was found to have a true rectal temperature of 34.4. Patient placed on David hugger. 1800: Patient's repeat temperature is within normal limits 36.5. Hugger turned off. 1840: Vital signs stable. Labs within normal limits including negative white blood cell count negative lactic acid procalcitonin negative. Could be source of infection. Discussed the case with patient and did not feel comfortable going home at this time. Patient will be admitted to the [facility] Hospitalist team. Dr. Olmos team notified. Impression & Plan Hypothermia, Stage III pressure ulcer, Lymphedema Discharge Plan Visit Data Chief Complaint: Infection, Wound Stated Complaint: INFECTION LEFT LEG ED Provider: Tien Angeles Discharge Problem: Hypothermia, Stage III pressure ulcer, Lymphedema Patient Disposition: Admitted As Inpatient Forms Stand Alone Forms: My [facility] Prescriptions Prescriptions: No Action polyethylene glycol 3350 [Miralax] 17 gram powder in packet 17 g PO DAILY PRN (Reason: constipation) pantoprazole 40 mg tablet,delayed release (DR/EC) 40 mg PO DAILY albuterol sulfate 90 mcg/actuation HFA aerosol inhaler 2 puff Inhalation DIRECTED PRN (Reason: Shortness Of Breath Or Wheezing) (DME) Oxygen Home Liters Per Minute See Rx Instructions .ROUTE .MEDSUPPLY Qty: 1 0RF Rx Instructions: As directed - 2 L NC O2 at bedtime & with naps atorvastatin 40 mg Tablet 40 mg PO QAM Qty: 30 2RF amlodipine [Norvasc] 5 mg Tablet 5 mg PO QAM Qty: 30 2RF aspirin 81 mg Tablet,Delayed Release (Dr/Ec) 81 mg PO QAM Qty: 90 3RF Rx Instructions: purchase [id number] anastrozole 1 mg tablet 1 mg PO DAILY levothyroxine 50 mcg tablet 50 mcg PO DAILY sennosides-docusate sodium [Senokot-S] 8.6-50 mg Tablet 1 tab PO BID Qty: 60 0RF Santyl 250 unit/gram Ointment 1 applic EXT DAILY Qty: 30 0RF Rx Instructions: to wound ondansetron 4 mg Tablet,Disintegrating 4 mg PO Q6H PRN (Reason: nausea) Qty: 15 0RF nystatin 100,000 unit/gram Cream 1 applic EXT BID Qty: 30 0RF Rx Instructions: to rash on leg Referrals Referrals: Fartun Frank PA-C [Primary Care Provider] -
[2022-12-25 16:07] LABS: Basophils # (auto) 0.04 K/uL (0-0.2); Basophils % (auto) 0.7 %; Eosinophils # (auto) 0.31 K/uL (0-0.50); Eosinophils % (auto) 5.2 %; Hemoglobin 11.1 g/dl (12.0-16.0); Immature Granulocytes # (auto) 0.01 K/uL (0.01-0.20); Immature Granulocytes % (auto) 0.2 %; Lymphocytes # (auto) 1.67 K/uL (1.2-3.4); Lymphocytes % (auto) 27.9 %; Mean Corpuscular Hemoglobin 29.1 pg (25.0-34.0); Mean Corpuscular Hgb Conc 32.6 g/dL (32.0-36.0); Mean Platelet Volume 11.6 fL (9.4-12.4); Monocytes % (auto) 8.4 %; Neutrophils # (auto) 3.45 K/uL (1.40-6.50); Neutrophils % (auto) 57.6 %; Platelet Count 208 K/uL (130-400); RDW Standard Deviation 54.5 fL (36.4-46.3); Red Blood Count 3.82 M/uL (4.20-5.40); White Blood Count 5.98 K/ul (4.8-10.8)
[2022-12-25 16:08] LABS: Alanine Aminotransferase 46 U/L (7-52); Albumin Level 4.1 gm/dl (3.4-5.0); Alkaline Phosphatase 109 U/L (34-104); Anion Gap 7 (3-11); Aspartate Aminotransferase 44 U/L (13-39); Bilirubin Direct 0.1 mg/dl (0-0.2); Bilirubin,Total 0.4 mg/dl (0.2-1.0); Blood Urea Nitrogen 44 mg/dl (6-23); Calcium 10.5 mg/dl (8.5-10.1); Carbon Dioxide 31 mmol/L (21-32); Chloride 107 mmol/L (98-107); Est GFR (African American) 99.3 ml/min; Est GFR (Non-African American) 85.7 ml/min; Glucose 88 mg/dl (70-99(Fasting)); Potassium 4.3 mmol/L (3.5-5.1); Sodium 145 mmol/L (136-145); Total Protein 7.8 gm/dl (6.0-8.3)
[2022-12-25 16:14] LABS: Troponin I High Sensitivity 6.5 pg/ml (0-14)
[2022-12-25 16:48] LABS: Appearance Urine Clear (Clear); Bacteria Urine Automated Negative (Negative); Bilirubin Urine Negative (Negative); Blood Urine Negative (Negative); Cast Urine Automated 0 /lpf (0-5); Color Urine Yellow; Epithelial Cell Urine Auto >30 /lpf (0-5); Glucose Urine UA Negative (Negative); Ketones Urine Negative (Negative); Leukocyte Esterase Urine Trace (Negative); Nitrite Urine Negative (Negative); Protein Urine Negative (Negative); RBC Urine Automated 0-4 /hpf (0-4); Specific Gravity Urine 1.015 (1.000-1.030); Urobilinogen Urine Negative (Negative); pH Urine 6.5 (4.5-7.5)
--- NOTE | 2022-12-25 18:35 | History & Physical Report ---
Date of Service December 25, 2022 Assessment & Plan (1) Stage IV pressure ulcer: Plan: Chronic left lower extremity pressure ulceration, pending debridement,? Superimposed cellulitis Patient received vancomycin in ER Reports increased drainage, purulence in the last 2 to 3 days, has been hypothermic but has not had fever/chills Left lower extremity is with increased drainage and erythema especially compared to right. We will treat as cellulitis, given past cultures we will switch to Rocephin Wound care consulted Patient has presented with hypothermia 2/2 cellulitis in the past, recently was seen for such in September Continue Tomás hugger as needed, may discontinue when rewarmed Patient denies cold exposure/cold home Past cultures have been positive for Proteus vulgaris and MSSA/current bacteria. Given this will switch from vancomycin and treat with cefdinir, follow CBC/CRP Sleep apnea CPAP nightly Hypertension Amlodipine continued History of CVA Left parietal CVA 2020, continue aspirin Past history of heart failure EF normal in 2020 No home diuretics Follow clinically. Legs are consistent with venous stasis, no evidence of pulmonary/generalized volume overload. Is not on oxygen. No chest pain on admission. Troponin normal on admission. Disposition: MedSur CODE STATUS: Full code Diet: Regular (2) Lymphedema: (3) Hypothyroidism: (4) CAD (coronary artery disease): (5) Cellulitis: History of Present Illness Primary Care Provider: Fartun Frank PA-C Minerva blunt is a 72yo F with a PMHx paraplegia, chronic lymphedema Hypothermic to 34.1, placed on tmoás hugger --> 35. Tx with vanco for bilaterl wounds pending debridement. Minerva is seen at the bedside. She reports that her house is not cold, but her temperature is below for the last day or 2. She reports that she has had increased drainage and purulence from her left leg in the last several days. Was pending a debridement on Tuesday, but drainage seem to get worse and she is felt more tired the last 24 hours did not think she could make it to that appointment. She denies any fevers/chills. No chest pain, chest pressure, shortness of breath, difficulty breathing had a similar presentation in September. She has no feeling in her legs. Allergies Allergy/AdvReac Type Severity Reaction Status Date / Time nalidixic acid Allergy Unknown Unknown Verified 12/23/22 13:01 Home Medications Medication Instructions Recorded Confirmed Type albuterol sulfate 90 mcg/actuation 2 puff inhalation DIRECTED PRN 09/21/18 12/23/22 History aerosol inhaler Shortness Of Breath Or Wheezing Oxygen Home #1 ea 05/21/21 12/23/22 Rx amlodipine 5 mg tablet (Norvasc) 5 mg PO QAM #30 tabs 05/21/21 12/23/22 Rx aspirin 81 mg tablet,delayed 81 mg PO QAM #90 tabs 05/21/21 12/23/22 Rx release atorvastatin 40 mg tablet 40 mg PO QAM #30 tabs 05/21/21 12/23/22 Rx pantoprazole 40 mg tablet,delayed 40 mg PO DAILY 10/20/21 12/23/22 History release anastrozole 1 mg tablet 1 mg PO DAILY 10/23/22 12/23/22 History levothyroxine 50 mcg tablet 50 mcg PO DAILY 10/23/22 12/23/22 History collagenase clostridium histo. 250 1 applic EXT DAILY #30 grams 11/02/22 12/23/22 Rx unit/gram topical ointment (Santyl) nystatin 100,000 unit/gram topical 1 applic EXT BID #30 grams 11/02/22 12/23/22 Rx cream ondansetron 4 mg disintegrating 4 mg PO Q6H PRN nausea #15 tabs 11/02/22 12/23/22 Rx tablet sennosides 8.6 mg-docusate sodium 1 tab PO BID #60 tabs 11/02/22 12/23/22 Rx 50 mg tablet (Senokot-S) polyethylene glycol 3350 17 gram 17 g PO DAILY PRN constipation 12/09/22 0201/13 History oral powder packet (Miralax) Past Med/Surg History Medical History Acute alteration in mental status Acute CHF (congestive heart failure) Acute ala-DO-vzxponkhv myocardial infarction Cellulitis Heart failure Hiatal hernia Hypertension Hypothermia Hypothyroidism Lymphedema of both lower extremities Meningitis spinal Neurogenic bladder (06/21/13) Paraplegia (06/21/13) Spina bifida (06/21/13) Takotsubo cardiomyopathy Traumatic open wound of left lower leg Surgical History H/O bone graft H/O section Hx of cholecystectomy Family History Father Hypertension Myocardial infarction Herniated disc Mother Myocardial infarction Colorectal cancer Uterine cancer Other Family history non-contributory Social History Smoking Status: Never smoker Second Hand Exposure: No; Hx Alcohol Use: No Hx Substance Use: No Preferred Language: Taiwanese Communication Ability: Effective Visual Impairment: Limited Hearing Ability: Normal Contract Negotiation Specialist Required: No Beliefs That Will Affect Care: Anglican Anglican Beliefs: Quaker marital status: Current Living Situation: Spouse current occupational status: retired How many Children do You have: 2 Feels Safe at Home: Yes caffeine: Yes (tea) during the past year weight has: increased > 10 lbs Physical Activity Frequency: Does not Exercise Do you think of yourself as: straight/heterosexual Gender Identity: Female Assistive Devices: Wheelchair Review of Systems Review of Systems: All systems reviewed & are unremarkable except as noted in Subjective Physical Exam Physical Exam: General: A&Ox3. NAD. Cooperative. HEENT: Atraumatic, normocephalic. Vision and hearing grossly intact Pulm: CTAB A&P. -wheezes, -rales, -rhonchi. Symmetrical chest rise. No increase in work of breathing. No respiratory distress. Cardiac: RRR, -mrg. Radial pulses intact and symmetrical. Abdominal: Nontender, nondistended, soft. BS present. Extremities: Congenital lower extremity deformities. Sensation to soft touch returns at the level of the low abdomen. Bilateral lower extremity venous stasis and chronic stasis changes. Left posterior lower leg with open stage III plus pressure ulcer, with surrounding erythema, weeping purulent fluid. Results & Data Results & Data ([facility]) Vital Signs (Past 12 Hours) Vital Signs Temp Pulse Pulse Resp BP BP Pulse Ox 12/25/22 17:56 36.5 C 12/25/22 16:45 34.7 C L 12/25/22 17:00 72 12 93 12/25/22 17:00 116/71 12/25/22 16:45 69 13 93 12/25/22 16:30 76 14 96 12/25/22 16:15 83 18 98 12/25/22 16:01 104/53 L 12/25/22 16:01 74 12 96 12/25/22 16:00 73 12 97 12/25/22 15:45 77 15 98 12/25/22 16:00 73 16 104/53 L 97 12/25/22 15:16 34.4 C L 12/25/22 13:54 34.6 C L 78 19 139/84 99 O2 Del Method 12/25/22 17:56 12/25/22 16:45 12/25/22 17:00 12/25/22 17:00 12/25/22 16:45 12/25/22 16:30 12/25/22 16:15 12/25/22 16:01 12/25/22 16:01 12/25/22 16:00 12/25/22 15:45 12/25/22 16:00 Room Air 12/25/22 15:16 12/25/22 13:54 Room Air PG Care Time/CCT Total # of Minutes Spent Total Time Spent with Patient: Total time spent is greater than 50% in coordination of care (as documented) at patient's floor/unit and/or counseling patient: Coding Level of Care Code 44828 INT INP/OBS CARE 255MIN Diagnoses Stage IV pressure ulcer L89.94 Lymphedema I89.0 Hypothyroidism E03.9 CAD (coronary artery disease) I25.10 Cellulitis L03.90 Site of cellulitis: unspecified site (1) Cellulitis Site of cellulitis: unspecified site Qualified Code(s): L03.90 - Cellulitis, unspecified
[2022-12-25] MEDS ORDERED: ACETAMINOPHEN 325 MG TAB PO PRN (21:31)
[2022-12-25] MEDS ORDERED: ALBUTEROL HFA 8 GM INHALER INH PRN (21:31)
[2022-12-25] MEDS: cefTRIAXone SODIUM 2,000 MG in DEXTROSE 5% 50 ML IV SCH (22:15)
[2022-12-26] MEDS: LEVOTHYROXINE SODIUM 50 MCG TABLET PO SCH (05:50)
[2022-12-26 06:58] LABS: Basophils # (auto) 0.02 K/uL (0-0.2); Basophils % (auto) 0.3 %; Eosinophils # (auto) 0.26 K/uL (0-0.50); Eosinophils % (auto) 4.2 %; Hematocrit (blood only) 29.1 % (37.0-47.0); Hemoglobin 9.3 g/dl (12.0-16.0); Immature Granulocytes # (auto) 0.02 K/uL (0.01-0.20); Immature Granulocytes % (auto) 0.3 %; Lymphocytes # (auto) 0.99 K/uL (1.2-3.4); Mean Corpuscular Hemoglobin 28.9 pg (25.0-34.0); Mean Corpuscular Volume 90.4 fL (80.0-100.0); Mean Platelet Volume 11.2 fL (9.4-12.4); Monocytes # (auto) 0.32 K/uL (0.11-0.59); Monocytes % (auto) 5.2 %; Neutrophils # (auto) 4.57 K/uL (1.40-6.50); Platelet Count 154 K/uL (130-400); RDW Coefficient of Variation 17.3 % (11.5-14.5); RDW Standard Deviation 57.1 fL (36.4-46.3); Red Blood Count 3.22 M/uL (4.20-5.40); White Blood Count 6.18 K/ul (4.8-10.8)
[2022-12-26 07:29] LABS: BUN Creatinine Ratio 56.6 (10-20); Calcium 9.8 mg/dl (8.5-10.1); Creatinine Clr Calc Pharmacy 70.7 ml/min; Est GFR (African American) 91.5 ml/min; Est GFR (Non-African American) 78.9 ml/min; Potassium 4.6 mmol/L (3.5-5.1)
[2022-12-26] MEDS: amLODIPine BESYLATE 5 MG TAB PO SCH (08:27)
[2022-12-26] MEDS: PANTOprazole 40 MG TAB PO SCH (08:27)
[2022-12-26] MEDS: ATORVASTATIN 40 MG TAB PO SCH (08:27)
[2022-12-26] MEDS: ANASTROZOLE 1 MG TAB PO SCH (08:27)
[2022-12-26] MEDS: ASPIRIN 81 MG ECTAB PO SCH (08:27)
--- NOTE | 2022-12-26 09:58 | Hospitalist Progress Note ---
Date of Service December 26, 2022 Assessment & Plan (1) Stage IV pressure ulcer: Plan: Chronic left lower extremity pressure ulceration stage IV, pending debridement Patient received vancomycin in ER Reports increased drainage, purulence in the last 2 to 3 days, has been hypothermic but has not had fever/chills Left lower extremity is with increased drainage and erythema especially compared to right. We will treat as cellulitis, given past cultures we will s witch to Rocephin Wound care consulted - will not be available to see until tomorrow Past cultures have been positive for Proteus vulgaris and MSSA/current bacteria. Given this will switch from vancomycin and treat with Rocephin for now - Await deep wound culture and tailor abx accordingly - Blood cultures collected and pending - Wound care to include Santyl daily and cover with optifoam, offload pressure, further wound care instructions as outlined by high density press laborer - Consult Dr. Baker who was to see the patient for surgical debridement eval on Thursday 12/28 (2) Lymphedema: Plan: - Chronic/stable (3) Hypothyroidism: Plan: - Continue Synthroid (4) CAD (coronary artery disease): Plan: H/o HTN/CAD/HLD/CHF -- stable - Continue Atorvastatin, ASA, and Amlodipine (5) Severe obstructive sleep apnea: Plan: - Continue cpap at HS (6) Breast cancer: Plan: - Continue Anastrozole Plan Plan as outlined above. Await input from Dr. Baker. Above plan of care to be d/w Dr. Golden. Admission and Anticipated Discharge Date Admission Date: December 25, 2022 Subjective Patient see on daily rounds this morning. She is currently resting comfortably in bed and has no complaints. Denies fever/chills, chest pain, or dyspnea. Physical Exam Physical Exam: GENERAL: 72 yo Well-developed, well-nourished WF. NAD. LUNGS: Clear to auscultation bilaterally. No W/R/R. CARDIOVASCULAR: Regular rate and rhythm. EXTREMITIES: Chronic b/l lymphedema with thickened sclerosed skin. Markedly deep purulent wound on posterior aspect of left leg. Neuro: spina bifida/paraplegic Results & Data Results & Data ([facility]) Vital Signs (Past 12 Hours) Vital Signs Temp Pulse Resp BP Pulse Ox O2 Del Method 12/26/22 07:42 36.2 C L 96 H 18 145/83 H 96 Room Air Laboratory Results 12/26/22 06:11 12/26/22 06:11 PG Care Time/CCT Total # of Minutes Spent Total Time Spent with Patient: Total time spent is greater than 50% in coordination of care (as documented) at patient's floor/unit and/or counseling patient: Coding Level of Care Code 99948 SUB INP/OBS CARE 2/35MIN Diagnoses Stage IV pressure ulcer L89.94 Lymphedema I89.0 Hypothyroidism E03.9 CAD (coronary artery disease) I25.10 Severe obstructive sleep apnea G47.33 Breast cancer C50.919
--- NOTE | 2022-12-26 10:34 | Electrocardiogram Report ---
Test Reason : Blood Pressure : / mmHG Vent. Rate : 073 BPM Atrial Rate : 073 BPM P-R Int : 156 ms QRS Dur : 082 ms QT Int : 396 ms P-R-T Axes : 057 051 074 degrees QTc Int : 436 ms Normal sinus rhythm Normal ECG When compared with ECG of 18-OCT-2022 09:50, No significant change was found Confirmed by Theo Roberts ([id number]) on 12/26/2022 10:34:28 AM Referred By: REFERRED SELF Confirmed By:Theo Roberts
--- NOTE | 2022-12-26 11:55 | Orthopedic Consultation ---
Date of Consultation December 26, 2022 Assessment & Plan (1) Lymphedema: (2) Stage IV pressure ulcer: Both wounds require debridement. The left foot more so than the right. I think this is something we can address at bedside with proper instrumentation and assistance. We will go ahead and plan on doing this tomorrow. Will also need coordination with wound care to help with dressings and some method to try to dry areas out. These are in the skin folds and are going to tend to stay chronically moist. It is possible that more substantial intervention might be necessary and we will know that until tomorrow. Present on Admission?: Yes History of Present Illness Reason for Consultation: Bilateral leg wounds Attending Physician: Naresh Golden MD History of Present Illness Minerva has spina bifida. Bilateral posterior leg wounds x1 year. Admitted in September for infection. Was at a facility until the end of October. She was getting wound care at wound clinic. I was contacted by the wound clinic last week about seeing Minerva for debridement of the wounds which they felt was necessary but beyond their capabilities. She had an outpatient appointment set up with me next week. She had a low temperature yesterday and her brought her in. She was admitted. The wounds were thought to be due to pressure from her wheelchair. Allergies Allergy/AdvReac Type Severity Reaction Status Date / Time nalidixic acid Allergy Unknown Unknown Verified 12/25/22 20:00 Home Medications Medication Instructions Recorded Confirmed Type albuterol sulfate 90 mcg/actuation 2 puff inhalation DIRECTED PRN 09/21/18 12/25/22 History aerosol inhaler Shortness Of Breath Or Wheezing Oxygen Home #1 ea 05/21/21 12/23/22 Rx amlodipine 5 mg tablet (Norvasc) 5 mg PO QAM #30 tabs 05/21/21 12/25/22 Rx aspirin 81 mg tablet,delayed 81 mg PO QAM #90 tabs 05/21/21 12/25/22 Rx release atorvastatin 40 mg tablet 40 mg PO QAM #30 tabs 05/21/21 12/25/22 Rx pantoprazole 40 mg tablet,delayed 40 mg PO DAILY 10/20/21 12/25/22 History release anastrozole 1 mg tablet 1 mg PO DAILY 10/23/22 12/25/22 History levothyroxine 50 mcg tablet 50 mcg PO DAILY 10/23/22 12/25/22 History collagenase clostridium histo. 250 1 applic EXT DAILY #30 grams 11/02/22 12/25/22 Rx unit/gram topical ointment (Santyl) nystatin 100,000 unit/gram topical 1 applic EXT BID #30 grams 11/02/22 12/25/22 Rx cream ondansetron 4 mg disintegrating 4 mg PO Q6H PRN nausea #15 tabs 11/02/22 12/25/22 Rx tablet polyethylene glycol 3350 17 gram 17 g PO DAILY PRN constipation 12/09/22 12/25/22 History oral powder packet (Miralax) sennosides 8.6 mg-docusate sodium 1 tab PO DAILY 12/25/22 12/25/22 History 50 mg tablet (Senokot-S) Patient History Medical History Acute alteration in mental status Acute CHF (congestive heart failure) Acute ccb-ND-tagaurwdo myocardial infarction Cellulitis Heart failure Hiatal hernia Hypertension Hypothermia Hypothyroidism Lymphedema of both lower extremities Meningitis spinal Neurogenic bladder (06/21/13) Paraplegia (06/21/13) Spina bifida (06/21/13) Takotsubo cardiomyopathy Traumatic open wound of left lower leg Surgical History H/O bone graft H/O section Hx of cholecystectomy Family History Father Hypertension Myocardial infarction Herniated disc Mother Myocardial infarction Colorectal cancer Uterine cancer Other Family history non-contributory Social History Smoking Status: Never smoker Second Hand Exposure: No; Hx Alcohol Use: No Hx Substance Use: No Preferred Language: Armenian Communication Ability: Effective Visual Impairment: Limited Hearing Ability: Normal Machine Slat Basket Maker Required: No Beliefs That Will Affect Care: None marital status: Current Living Situation: Spouse current occupational status: retired How many Children do You have: 2 Other Information That Helps Us Care for You: No Feels Safe at Home: Yes Safety Concerns: Feels Safe At This Time caffeine: Yes (tea) during the past year weight has: increased > 10 lbs Physical Activity Frequency: Does not Exercise Do you think of yourself as: straight/heterosexual Gender Identity: Female Assistive Devices: CPAP, Glasses and Scooter/Electric Scooter Physical Exam Physical Exam: The left posterior leg is evaluated. There is severe chronic lymphedema. She has no motor movement or feeling bilaterally. Pulses are not palpable due to the enlargement of the legs but both lower extremities have good capillary refill less than 2 seconds and are warm. The left posterior leg wound is in a crease. Possibly the popliteal crease. It looks reasonably superficial and has superficial necrotic tissue. It may be down into the fatty layer but I do not feel any sinus tract or anything going deeper down. There is no exposed tendon or bone. The lesion is probably 6 or 8 cm in diameter. There is a corresponding lesion on the right side which is less substantial. A little bit lower on the leg smaller in size 5 or 6 cm. It has a fair amount of fluid with it and there is some necrotic tissue more medially. No surrounding cellulitis. The lesions are foul-smelling. Results & Data ([facility]) Vital Signs (Past 12 Hours) Vital Signs Temp Pulse Resp BP Pulse Ox O2 Del Method 12/26/22 07:42 36.2 C L 96 H 18 145/83 H 96 Room Air Laboratory Results Laboratory Results WBC 6.18 K/ul (4.8-10.8) 12/26/22 06:11 RBC 3.22 M/uL (4.20-5.40) L 12/26/22 06:11 Hgb 9.3 g/dl (12.0-16.0) L 12/26/22 06:11 Hct 29.1 % (37.0-47.0) L 12/26/22 06:11 MCV 90.4 fL (80.0-100.0) 12/26/22 06:11 MCH 28.9 pg (25.0-34.0) 12/26/22 06:11 MCHC 32.0 g/dL (32.0-36.0) 12/26/22 06:11 RDW Std Deviation 57.1 fL (36.4-46.3) H 12/26/22 06:11 RDW Coeff of Deanna 17.3 % (11.5-14.5) H 12/26/22 06:11 Plt Count 154 K/uL (130-400) 12/26/22 06:11 MPV 11.2 fL (9.4-12.4) 12/26/22 06:11 Immature Gran % (Auto) 0.3 % 12/26/22 06:11 Neut % (Auto) 74.0 % 12/26/22 06:11 Lymph % (Auto) 16.0 % 12/26/22 06:11 Hardeman % (Auto) 5.2 % 12/26/22 06:11 Eos % (Auto) 4.2 % 12/26/22 06:11 Baso % (Auto) 0.3 % 12/26/22 06:11 Neut # (Auto) 4.57 K/uL (1.40-6.50) 12/26/22 06:11 Lymph # (Auto) 0.99 K/uL (1.2-3.4) L 12/26/22 06:11 Hardeman # (Auto) 0.32 K/uL (0.11-0.59) 12/26/22 06:11 Eos # (Auto) 0.26 K/uL (0-0.50) 12/26/22 06:11 Baso # (Auto) 0.02 K/uL (0-0.2) 12/26/22 06:11 Immature Gran # (Auto) 0.02 K/uL (0.01-0.20) 12/26/22 06:11 PT 10.9 Seconds (9.0-12.0) 12/25/22 14:58 INR 1.0 (0.9-1.1) 12/25/22 14:58 APTT 31.0 Seconds (21.0-31.0) 12/25/22 14:58 PTT Ratio 1.1 12/25/22 14:58 Sodium 146 mmol/L (136-145) H 12/26/22 06:11 Potassium 4.6 mmol/L (3.5-5.1) 12/26/22 06:11 Chloride 111 mmol/L (98-107) H 12/26/22 06:11 Carbon Dioxide 34 mmol/L (21-32) H 12/26/22 06:11 Anion Gap 1 (3-11) L 12/26/22 06:11 BUN 43 mg/dl (6-23) H 12/26/22 06:11 Creatinine 0.76 mg/dl (0.6-1.2) 12/26/22 06:11 Est Cr Clr Drug Dosing 70.7 ml/min 12/26/22 06:11 Est GFR ( Amer) 91.5 ml/min 12/26/22 06:11 Est GFR (Non-Af Amer) 78.9 ml/min 12/26/22 06:11 BUN/Creatinine Ratio 56.6 (10-20) H 12/26/22 06:11 Glucose 61 mg/dl (70-99(Fasting)) L 12/26/22 06:11 Lactate 0.8 mmol/L (0.4-2.0) 12/25/22 14:58 Calcium 9.8 mg/dl (8.5-10.1) 12/26/22 06:11 Magnesium 2.0 mg/dl (1.7-2.4) 12/25/22 14:58 Total Bilirubin 0.4 mg/dl (0.2-1.0) 12/25/22 14:58 Direct Bilirubin 0.1 mg/dl (0-0.2) 12/25/22 14:58 AST 44 U/L (13-39) H 12/25/22 14:58 ALT 46 U/L (7-52) 12/25/22 14:58 Alkaline Phosphatase 109 U/L (34-104) H 12/25/22 14:58 Troponin I High Sens 6.5 pg/ml (0-14) 12/25/22 14:58 C-Reactive Protein 1.00 mg/dl (0-0.5) H 12/26/22 06:11 Total Protein 7.8 gm/dl (6.0-8.3) 12/25/22 14:58 Albumin 4.1 gm/dl (3.4-5.0) 12/25/22 14:58 Procalcitonin < 0.05 ng/ml (0-0.5) 12/25/22 14:58 Urine Color Yellow 12/25/22 16:33 Urine Appearance Clear (Clear) 12/25/22 16:33 Urine pH 6.5 (4.5-7.5) 12/25/22 16:33 Ur Specific Alta 1.015 (1.000-1.030) 12/25/22 16:33 Urine Protein Negative (Negative) 12/25/22 16:33 Urine Glucose (UA) Negative (Negative) 12/25/22 16:33 Urine Ketones Negative (Negative) 12/25/22 16:33 Urine Blood Negative (Negative) 12/25/22 16:33 Urine Nitrite Negative (Negative) 12/25/22 16:33 Urine Bilirubin Negative (Negative) 12/25/22 16:33 Urine Urobilinogen Negative (Negative) 12/25/22 16:33 Ur Leukocyte Esterase Trace (Negative) H 12/25/22 16:33 Urine WBC (Auto) 1-5 /hpf (0-5) 12/25/22 16:33 Urine RBC (Auto) 0-4 /hpf (0-4) 12/25/22 16:33 U Hyaline Cast (Auto) 0 /lpf (0-5) 12/25/22 16:33 U Epithel Cells (Auto) >30 /lpf (0-5) H 12/25/22 16:33 Urine Bacteria (Auto) Negative (Negative) 12/25/22 16:33 SARS-CoV-2, RNA, NAAT NEGATIVE (NEGATIVE) 12/25/22 16:38 Impressions Chest X-Ray 12/25/22 14:09 XR chest 1V portable HISTORY: 72 years-old Female Sepsis acute sepsis COMPARISON: Chest radiograph 10/26/2022 TECHNIQUE: AP view of the chest FINDINGS: Cardiomediastinal and hilar silhouettes are unchanged. No pneumothorax, pleural effusion, airspace consolidation or pulmonary edema. Unchanged left hemidiaphragmatic elevation. Bones appear grossly intact. Unchanged scoliosis of the spine. IMPRESSION: No acute process. ACT 112: Negative or not required by law. The above report was generated using voice recognition software. It may contain grammatical, syntax or spelling errors. Electronically signed by: Saeid Chong M.D. 12/25/2022 3:48 PM
[2022-12-26] MEDS: cefTRIAXone SODIUM 2,000 MG in DEXTROSE 5% 50 ML IV SCH (21:00)
[2022-12-26] MEDS ORDERED: ONDANSETRON INJ 2 MG/ML 2 ML VIAL ONE (23:23)
[2022-12-27] MEDS ORDERED: METOCLOPRAMIDE HCL INJ 5 MG/ML 2 ML VIAL IV STA (02:25)
[2022-12-27] MEDS ORDERED: METOCLOPRAMIDE HCL INJ 5 MG/ML 2 ML VIAL ONE (02:32)
[2022-12-27] MEDS: LEVOTHYROXINE SODIUM 50 MCG TABLET PO SCH (05:51)
[2022-12-27] MEDS: ATORVASTATIN 40 MG TAB PO SCH (07:50)
[2022-12-27] MEDS: ANASTROZOLE 1 MG TAB PO SCH (07:50)
[2022-12-27] MEDS: ASPIRIN 81 MG ECTAB PO SCH (07:50)
[2022-12-27] MEDS: PANTOprazole 40 MG TAB PO SCH (07:50)
[2022-12-27] MEDS: amLODIPine BESYLATE 5 MG TAB PO SCH (07:50)
--- NOTE | 2022-12-27 10:19 | Progress Notes ---
DATE OF SERVICE: 12/27/2022. Minerva is seen at her bed. We are here for wound debridement. I described to her what we are going to do and identified the bilateral leg wounds as the procedure site, and she gave verbal consent to proceed with the superficial debridement. We started on the right side first. She was comfortably rolled onto her left side. The dressing was removed. This lesion is about 4 x 6 superficial down into the subcutaneous tissues. There was an area of necrosis with some dried wound slough, a little bit medial. This was about 0.5 cm in size and it was debrided with a rongeur. Fibrinous exudate was then debrided throughout the superficial wound with good bleeding bed. This was then irrigated and covered with Aquacel Ag and Optifoam. Attention was turned to the left leg. There is a wound in the popliteal crease. This was into the dermis and subcutaneous fat. The area was spread apart. There was grossly necrotic tissue present superficially. Both areas were prepped with Betadine. We then debride the necrosis with a rongeur. Then, some of the deeper necrotic fatty tissue in the central portion was debrided with pickups and sharply excised with a 15 blade scalpel. This went down to the level of what could be the gastrocnemius fascia, which also was bleeding and healthy in appearance and was about exposed for a centimeter in diameter. Debridement of the remainder of the wound was performed. This wound is about 8 x 10 cm. This was done with a rongeur. Good bleeding throughout with good granulation tissue. Pressure was held for hemostasis and it was dressed with Aquacel Ag and ABD. Total excisional debridement less than 20 cm2. I spoke with the wound care nurse. I think we can continue with Aquacel and Optifoam on the right. On the left, they will evaluate and give recommendations. A wound VAC is a possibility. Unfortunately, it is in the deep skin crease, which is going to be difficult to obtain the optimal wound healing environment. We will continue to follow. The patient is on aspirin. She was questioning whether she needed something more for blood clot prevention. We will discuss with Medicine. Job ID: [id number] MTDD
--- NOTE | 2022-12-27 11:46 | Hospitalist Progress Note ---
Date of Service December 27, 2022 Assessment & Plan (1) Stage IV pressure ulcer: Plan: Chronic left lower extremity pressure ulceration stage IV, pending debridement Patient received vancomycin in ER Reports increased drainage, purulence in the last 2 to 3 days, has been hypothermic but has not had fever/chills Left lower extremity is with increased drainage and erythema especially compared to right. We will treat as cellulitis, given past cultures we will s witch to Rocephin Wound care consulted - will not be available to see until tomorrow Past cultures have been positive for Proteus vulgaris and MSSA/current bacteria. Given this will switch from vancomycin and treat with Rocephin for now - Await deep wound culture and tailor abx accordingly - Blood cultures collected and pending - Wound care to include Santyl daily and cover with optifoam, offload pressure, further wound care instructions as outlined by lead slot technician - Consulted Dr. Baker who performed bedside debridement on 12/27 - Wound culture obtained and sent to lab for C&S (2) Lymphedema: Plan: - Chronic/stable (3) Hypothyroidism: Plan: - Continue Synthroid (4) CAD (coronary artery disease): Plan: H/o HTN/CAD/HLD/CHF -- stable - Continue Atorvastatin, ASA, and Amlodipine (5) Severe obstructive sleep apnea: Plan: - Continue cpap at HS (6) Breast cancer: Plan: - Continue Anastrozole Plan Plan as outlined above. Will develop plan for wound care. Will need close f/u in wound clinic. Based on cultures, could transition to oral Bactrim DS to finish 10 day course of abx. Above plan of care to be d/w Dr. Golden. Admission and Anticipated Discharge Date Admission Date: December 25, 2022 Subjective Patient seen on daily rounds this morning. She is s/p bedside debridement by Dr. Baker this morning of ulcerations on both legs. Waiting for wound care to develop plan. Presently denies cp or dyspnea. No fever/chills. Physical Exam Physical Exam: GENERAL: 72 yo Well-developed, well-nourished WF. NAD. LUNGS: Clear to auscultation bilaterally. No W/R/R. CARDIOVASCULAR: Regular rate and rhythm. EXTREMITIES: Chronic b/l lymphedema with thickened sclerosed skin. Markedly deep purulent wound on posterior aspect of left leg. Neuro: spina bifida/paraplegic Results & Data Results & Data ([facility]) Vital Signs (Past 12 Hours) Vital Signs Temp Pulse Resp BP Pulse Ox O2 Del Method 12/27/22 07:49 36.4 C L 90 16 128/76 97 Room Air PG Care Time/CCT Total # of Minutes Spent Total Time Spent with Patient: Total time spent is greater than 50% in coordination of care (as documented) at patient's floor/unit and/or counseling patient: Coding Level of Care Code 38111 SUB INP/OBS CARE 2/35MIN Diagnoses Stage IV pressure ulcer L89.94 Lymphedema I89.0 Hypothyroidism E03.9 CAD (coronary artery disease) I25.10 Severe obstructive sleep apnea G47.33 Breast cancer C50.919
[2022-12-27] MEDS: ONDANSETRON INJ 2 MG/ML 2 ML VIAL IV PRN ×2 (12:33→23:49)
[2022-12-27] MEDS: cefTRIAXone SODIUM 2,000 MG in DEXTROSE 5% 50 ML IV SCH (21:21)
[2022-12-28] MEDS ORDERED: METOCLOPRAMIDE HCL INJ 5 MG/ML 2 ML VIAL IV STA (01:49)
[2022-12-28] MEDS ORDERED: METOCLOPRAMIDE HCL INJ 5 MG/ML 2 ML VIAL ONE (01:55)
[2022-12-28] MEDS: LEVOTHYROXINE SODIUM 50 MCG TABLET PO SCH (05:48)
[2022-12-28] MEDS: amLODIPine BESYLATE 5 MG TAB PO SCH (09:38)
[2022-12-28] MEDS: ATORVASTATIN 40 MG TAB PO SCH (09:38)
[2022-12-28] MEDS: PANTOprazole 40 MG TAB PO SCH (09:38)
[2022-12-28] MEDS: ASPIRIN 81 MG ECTAB PO SCH (09:38)
[2022-12-28] MEDS: ANASTROZOLE 1 MG TAB PO SCH (09:38)
--- NOTE | 2022-12-28 14:09 | Hospitalist Progress Note ---
Date of Service December 28, 2022 Assessment & Plan (1) Stage IV pressure ulcer: Plan: Chronic left lower extremity pressure ulceration stage IV, pending debridement Patient received vancomycin in ER Reports increased drainage, purulence in the last 2 to 3 days, has been hypothermic but has not had fever/chills Left lower extremity is with increased drainage and erythema especially compared to right. We will treat as cellulitis, given past cultures we will s witch to Rocephin Wound care consulted - will not be available to see until tomorrow Past cultures have been positive for Proteus vulgaris and MSSA/current bacteria. Given this will switch from vancomycin and treat with Rocephin for now - Blood cultures collected and w/ NGTD - Consulted Dr. Baker who performed bedside debridement on 12/27 - Wound culture obtained and sent to lab for C&S - gram stain showing no organisms or wbcs, prelim culture GNB - Anticipate can transition patient to Bactrim DS and complete a 10 day (total) course of abx - Wound vac placed, setting and remaining wound care orders per heel packer (2) Lymphedema: Plan: - Chronic/stable (3) Hypothyroidism: Plan: - Continue Synthroid (4) CAD (coronary artery disease): Plan: H/o HTN/CAD/HLD/CHF -- stable - Continue Atorvastatin, ASA, and Amlodipine (5) Severe obstructive sleep apnea: Plan: - Continue cpap at HS (6) Breast cancer: Plan: - Continue Anastrozole Plan Plan as outlined above. Pt active with [facility], they are able to manage wound vacs. Will need f/u in wound clinic upon dc. Likely can be d/c'd on 12/29/22. Above plan of care to be d/w Dr. Golden. Admission and Anticipated Discharge Date Admission Date: December 25, 2022 Subjective Patient seen on daily rounds this morning. She is s/p bedside debridement of b/l leg ulcerations by Dr. Baker. She has been seen this AM by wound care, wound vac placed on left leg wound. Physical Exam Physical Exam: GENERAL: 72 yo Well-developed, well-nourished WF. NAD. LUNGS: Clear to auscultation bilaterally. No W/R/R. CARDIOVASCULAR: Regular rate and rhythm. EXTREMITIES: Chronic b/l lymphedema with thickened sclerosed skin. Left leg wound has been covered by wound vac dressing. R leg wound dressed with aquacel Neuro: spina bifida/paraplegic Results & Data Results & Data ([facility]) Vital Signs (Past 12 Hours) Vital Signs Temp Pulse Resp BP Pulse Ox O2 Del Method 12/28/22 08:02 36.3 C L 78 18 153/78 H 94 Room Air PG Care Time/CCT Total # of Minutes Spent Total Time Spent with Patient: Total time spent is greater than 50% in coordination of care (as documented) at patient's floor/unit and/or counseling patient: Coding Level of Care Code 84495 SUB INP/OBS CARE 2/35MIN Diagnoses Stage IV pressure ulcer L89.94 Lymphedema I89.0 Hypothyroidism E03.9 CAD (coronary artery disease) I25.10 Severe obstructive sleep apnea G47.33 Breast cancer C50.919
[2022-12-28] MEDS: cefTRIAXone SODIUM 2,000 MG in DEXTROSE 5% 50 ML IV SCH (21:15)
[2022-12-29] MEDS: LEVOTHYROXINE SODIUM 50 MCG TABLET PO SCH (06:35)
[2022-12-29] MEDS: ASPIRIN 81 MG ECTAB PO SCH (08:00)
[2022-12-29] MEDS: amLODIPine BESYLATE 5 MG TAB PO SCH (08:00)
[2022-12-29] MEDS: ANASTROZOLE 1 MG TAB PO SCH (08:00)
[2022-12-29] MEDS: ATORVASTATIN 40 MG TAB PO SCH (08:00)
[2022-12-29] MEDS: PANTOprazole 40 MG TAB PO SCH (08:00)
--- NOTE | 2022-12-29 08:45 | Hospitalist Progress Note ---
Date of Service December 29, 2022 Assessment & Plan (1) Cellulitis: Plan: Chronic left lower extremity pressure ulceration stage IV Increased drainage/purulant for 2-3 days prior to admit w/ hypothermia Abx: Ceftriaxone IV Dr Baker on consult -- bedside debridement 12/27 Cx w/ pseudomonas/group B strep -- discussed w/ pharmacy and switched to PO Levaquin to complete course WBC wnl, afebrile BCx remain NGTD Wound RN changed vac this morning, awaiting insurance auth for wound vac for d/c 1L IVF 1/2NSS given hypernatremia/mild dehydration on exam as well Patient also with elevated LFTs on exam -- reported n/v last evening. No further n/v reported. Patient unsure of last BM. KUB checked and reviewed initially prior to labs returning -- nonobstructive pattern (+BS on exam, NONTENDER), noted gaseous distention of stomach as well as extensive colonic fecal retention -- >Dulcolax AK ordered x 1 Checking MRCP/GI consulted given LFTs -- ?hx zach ~30 years ago, nontender on exam -- GI also checking CK (I already ordered, was LOW) -- INR to r/o coagulopathy -- acute viral hepatitis panel as well (2) Elevated LFTs: Plan: Prior elevation AST 44, ALP 109 on 12/25 (on admit) -- BPs were low timmy 104/53 on admit w/ reported hypothermia -- ?shock liver Had not been checked until this morning --> TB now 2.1 and was normal AST 1241, ALT 1114, ALP 720 CK wnl TSH w/ AM labs Avoid hepatotoxic agents NPO/MRCP ordered as above, GI on consult Monitor LFts in AM (3) Stage IV pressure ulcer: Plan: to LLE laterally, as well as sacral ulcer wound consulted and following (4) Lymphedema: Plan: Chronic/stable, wound RN consulted and following (5) Hypothyroidism: Plan: Last TSH 3.218 in September Continue home Synthroid, check TSH in AM (6) CAD (coronary artery disease): Plan: H/o HTN/CAD/HLD/CHF -- stable Continue Atorvastatin (CK not elevated), ASA, and Amlodipine (7) Severe obstructive sleep apnea: Plan: Continue cpap at HS (8) Breast cancer: Plan: Continue Anastrozole Plan continued inpatient stay switched abx to PO, however may need to give AM dose IV if remains NPO MRCP ordered for further eval elevated LFTs, additional labs/recs per GI suppository for fecal retention Monitor labs on repeat Admission and Anticipated Discharge Date Admission Date: December 25, 2022 Supervising Physician Co-Signing Physician Notes OSMAR Supervision Note: I did not personally see or examine the patient today, but I verified all peterson points of OSMAR Hensley's assessment and plan with the following exceptions/additions: None Subjective patient evaluated this morning, feeling well. getting changed up. seen by wound RN this morning and wound vac in placed. surrounding tissue looks good, buttocks wound being addressed, no active drainage. Waiting insurance approval for wound vac but discussed. LFTs elevated this morning, no abdominal pain. Active BS. Hx zach. Lst documented BM 12/26. Had episode of nausea/emesis overnight. Not much appetite. Will make NPO/check MRCP and consultation for GI. Review of Systems Review of Systems: All systems reviewed & are unremarkable except as noted in HPI & below Physical Exam Physical Exam: General: WD/WN female baseline spina bifida getting cleaned up by staff, NAD HEENT: head normocephalic, atraumatic, mm slightly dry, trachea midline Resp; diminished in the bases, no w/c, on room air CV: RRR, no significant m/r/g, chronic b/l lymphedema,calves nontender GI: +BS throughout, soft, slightly distended, nontender to palpation MSK/Neuro: LLE cellulitis almost resolved, wound vac in place, drainage in canister, baseline wheelchair/spina bifida Skin: in addition to LLE cellulitis/wound, chronic b/l lymphedema w/ dry/scaling skin, also has pressure ulcer to buttocks, pink tissue present/no drainage Results & Data Results & Data ([facility]) Vital Signs (Past 12 Hours) Vital Signs Temp Pulse Resp BP Pulse Ox O2 Del Method 12/29/22 07:44 36.8 C 89 18 138/77 93 Room Air 12/28/22 21:05 Room Air 12/28/22 21:17 36.6 C 88 18 161/87 H 96 Room Air Laboratory Results 12/29/22 12/29/22 12/29/22 Range/Units 10:44 10:44 08:49 WBC (4.8-10.8) K/ul RBC (4.20-5.40) M/uL Hgb (12.0-16.0) g/dl Hct (37.0-47.0) % MCV (80.0-100.0) fL MCH (25.0-34.0) pg MCHC (32.0-36.0) g/dL RDW Std Deviation (36.4-46.3) fL RDW Coeff of Deanna (11.5-14.5) % Plt Count (130-400) K/uL MPV (9.4-12.4) fL Sodium 146 H (136-145) mmol/L Potassium 4.2 (3.5-5.1) mmol/L Chloride 110 H (98-107) mmol/L Carbon Dioxide 31 (21-32) mmol/L Anion Gap 5 (3-11) BUN 29 H (6-23) mg/dl Creatinine 0.44 L (0.6-1.2) mg/dl Est Cr Clr Drug Dosing 122.1 ml/min Est GFR ( Amer) 117.7 ml/min Est GFR (Non-Af Amer) 101.6 ml/min BUN/Creatinine Ratio 65.9 H (10-20) Glucose 103 H (70-99(Fasting)) mg/dl Calcium 9.7 (8.5-10.1) mg/dl Total Bilirubin 2.1 H (0.2-1.0) mg/dl Direct Bilirubin 1.0 H (0-0.2) mg/dl AST 1241 H (13-39) U/L ALT 1114 H (7-52) U/L Alkaline Phosphatase 720 H (34-104) U/L Total Creatine Kinase 14 L (26-192) U/L Total Protein 7.0 (6.0-8.3) gm/dl Albumin 3.3 L (3.4-5.0) gm/dl Globulin 3.7 (2.5-4.0) gm/dl Albumin/Globulin Ratio 0.9 (0.9-2) 25-OH Vitamin D Total (30-100) ng/ml Hepatitis A IgM Ab Pending Hep Bs Antigen Pending Hep Bs Ag Confirmation Pending Hep B Core IgM Ab Pending Hepatitis C Ab (EIA) Pending Hep C Ab Signal/Cutoff Pending 12/29/22 12/29/22 Range/Units 08:49 08:49 WBC 7.18 (4.8-10.8) K/ul RBC 3.27 L (4.20-5.40) M/uL Hgb 9.6 L (12.0-16.0) g/dl Hct 30.1 L (37.0-47.0) % MCV 92.0 (80.0-100.0) fL MCH 29.4 (25.0-34.0) pg MCHC 31.9 L (32.0-36.0) g/dL RDW Std Deviation 60.3 H (36.4-46.3) fL RDW Coeff of Deanna 18.1 H (11.5-14.5) % Plt Count 130 (130-400) K/uL MPV 11.6 (9.4-12.4) fL Sodium (136-145) mmol/L Potassium (3.5-5.1) mmol/L Chloride (98-107) mmol/L Carbon Dioxide (21-32) mmol/L Anion Gap (3-11) BUN (6-23) mg/dl Creatinine (0.6-1.2) mg/dl Est Cr Clr Drug Dosing ml/min Est GFR ( Amer) ml/min Est GFR (Non-Af Amer) ml/min BUN/Creatinine Ratio (10-20) Glucose (70-99(Fasting)) mg/dl Calcium (8.5-10.1) mg/dl Total Bilirubin (0.2-1.0) mg/dl Direct Bilirubin (0-0.2) mg/dl AST (13-39) U/L ALT (7-52) U/L Alkaline Phosphatase (34-104) U/L Total Creatine Kinase (26-192) U/L Total Protein (6.0-8.3) gm/dl Albumin (3.4-5.0) gm/dl Globulin (2.5-4.0) gm/dl Albumin/Globulin Ratio (0.9-2) 25-OH Vitamin D Total 24.3 L (30-100) ng/ml Hepatitis A IgM Ab Hep Bs Antigen Hep Bs Ag Confirmation Hep B Core IgM Ab Hepatitis C Ab (EIA) Hep C Ab Signal/Cutoff Diagnostic Findings KUB X-Ray 12/29/22 10:04 KUB HISTORY: Acute generalized abdominal pain with reported constipation eval constipation COMPARISON: 11/01/2022 FINDINGS: Chronic appearance of the lumbar spine, pelvis and proximal femora with spinal dysraphism. Demineralized appearance of the bones without acute fracture identified. Sigmoidal scoliosis of the spine. Moderate gaseous distention of the stomach. Nonobstructive bowel gas pattern. Cholecystectomy. Extensive colonic fecal retention and has progressed from the prior study. 10 mm calcification within the right midabdomen is again noted, likely within the subcutaneous tissues of the back. No definite urolith identified. IMPRESSION: 1. Nonobstructive bowel gas pattern. 2. Gaseous distention of the stomach. 3. Extensive colonic fecal retention. ACT 112: Negative or not required by law. The above report was generated using voice recognition software. It may contain grammatical, syntax or spelling errors. Electronically signed by: Saeid Chong M.D. 12/29/2022 11:20 AM PG Care Time/CCT Total # of Minutes Spent Total Time Spent with Patient: Total time spent is greater than 50% in coordination of care (as documented) at patient's floor/unit and/or counseling patient: Coding Level of Care Code 11590 SUB INP/OBS CARE 3/50MIN Diagnoses Cellulitis L03.90 Site of cellulitis: unspecified site Elevated LFTs R79.89 Stage IV pressure ulcer L89.94 Lymphedema I89.0 Hypothyroidism E03.9 CAD (coronary artery disease) I25.10 Severe obstructive sleep apnea G47.33 Breast cancer C50.919 (1) Cellulitis Site of cellulitis: unspecified site Qualified Code(s): L03.90 - Cellulitis, unspecified
[2022-12-29] MEDS ORDERED: CIPROFLOXACIN 250 MG TAB PO SCH (09:00)
[2022-12-29 09:25] LABS: Hematocrit (blood only) 30.1 % (37.0-47.0); Hemoglobin 9.6 g/dl (12.0-16.0); Mean Corpuscular Hemoglobin 29.4 pg (25.0-34.0); Mean Corpuscular Hgb Conc 31.9 g/dL (32.0-36.0); Mean Platelet Volume 11.6 fL (9.4-12.4); Platelet Count 130 K/uL (130-400); RDW Coefficient of Variation 18.1 % (11.5-14.5); RDW Standard Deviation 60.3 fL (36.4-46.3); Red Blood Count 3.27 M/uL (4.20-5.40); White Blood Count 7.18 K/ul (4.8-10.8)
[2022-12-29 09:34] LABS: BUN Creatinine Ratio 65.9 (10-20); Calcium 9.7 mg/dl (8.5-10.1); Creatinine Clr Calc Pharmacy 122.1 ml/min; Est GFR (African American) 117.7 ml/min; Est GFR (Non-African American) 101.6 ml/min; Potassium 4.2 mmol/L (3.5-5.1)
--- NOTE | 2022-12-29 09:35 | Orthopedic Progress Note ---
Date of Service December 29, 2022 Assessment & Plan (1) Ulcers of both lower extremities: Plan: A wound VAC has been applied to her left leg wound. Continue wound care. She may follow-up with me as necessary. Admission and Anticipated Discharge Date Admission Date: December 25, 2022 Subjective No problems. Physical Exam Physical Exam: Wound VAC in place left leg Results & Data ([facility]) Vital Signs (Past 12 Hours) Vital Signs Temp Pulse Resp BP Pulse Ox O2 Del Method 12/29/22 07:44 36.8 C 89 18 138/77 93 Room Air
[2022-12-29 09:56] LABS: Albumin Globulin Ratio 0.9 (0.9-2); Albumin Level 3.3 gm/dl (3.4-5.0); Bilirubin,Total 2.1 mg/dl (0.2-1.0); Globulin 3.7 gm/dl (2.5-4.0)
[2022-12-29] MEDS ORDERED: SODIUM CHLORIDE 0.45 % 1,000 ML IV SCH (10:00)
[2022-12-29] MEDS: levoFLOXacin 750 MG TAB PO SCH (10:08)
--- NOTE | 2022-12-29 10:39 | Gastrointestinal Consultation ---
Date of Consultation December 29, 2022 Assessment & Plan (1) Elevated LFTs: (2) Stage IV pressure ulcer: Plan Pt is a 72 y/o female with h/o spina bifida, paraplegia, wheelchair bound, chronic lower extremity pressure wounds, and we are consulted for acutely elevated LFTs. Pt hasn't had recent GI imaging. Currenetly has no abd pain,n/v, but had n/v several days ago. Tolerated her food today. Given her history we wonder about DILI given she has been on multiple meds, viral rolando ology, ? rhabdo, ? CHF, or possible biliary etiology though typically LFTs aren't that high with gallstone dz. On exam she is well-appearing; abd nontender. - MRCP pending and will wait to see what that shows - Added acute viral hepatitis panel - Repeat INR to make sure no coagulopathy - Added CPK to check for rhabdo - Would trend Daily LFTs - Would avoid hepatotoxins Thank you for allowing us to participate in the care of this patient. Please call with any acute changes, questions or concerns. Please see addendum below with additional recommendation from my supervising physician. Supervising Physician Co-Signing Physician Notes I saw and evaluated the patient. We were consulted for new onset elevation of liver enzymes. Of note the patient had normal-appearing liver enzymes upon admission several days ago, she was admitted due to recurrent infection from a pressure ulcer and has been on several medications. Of note labs from this morning showing a significant elevation of her liver transaminases. The patient notes that she did have some nausea yesterday but denies having abdominal pain, fevers chills or sweats today. The patient's surgical history is notable for prior cholecystectomy. Physical examination Pleasant appearing female, no obvious distress no abdominal tenderness noted Impression patient with acute elevation of associated enzymes. Based on the significant elevation into the low thousands I would wonder about a process such as ischemia, viral process or perhaps medication induced process. I think it would be prudent to obtain further evaluation with a CPK, MRCP and a right upper quadrant ultrasound with Doppler. 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 Last night had a bout of nausea and vomiting. We are consulted as she has acutely elevated LFTs and MRCP is ordered; pending. She has a history of previous mild LFT elevation, however this resolved. Acutely she has had a sudden rise in LFTs overnight, AST 1241, ALT 1114, ALP 720, Tbili 2.1. Has chronic anemia which is unchanged, no leukocytosis, normal PLT. No recent CHF exacerbation, EF was 60% in September 2022. She is s/p cholecystectomy several years ago. She states she's had nausea/emesis for 3 days during her admission, but not yesterday and not today. Currently feels well. Tolerated diet today with samoan toast and grapes. She has no abd pain, jaundice, nausea, vomiting, hematemesis, fever, chills, CP, SOB. No ETOH use. EGD 2015 for nausea: - Large hiatal hernia - Normal stomach Allergies Allergy/AdvReac Type Severity Reaction Status Date / Time nalidixic acid Allergy Unknown Unknown Verified 12/25/22 20:00 Home Medications Medication Instructions Recorded Confirmed Type albuterol sulfate 90 mcg/actuation 2 puff inhalation DIRECTED PRN 09/21/18 12/25/22 History aerosol inhaler Shortness Of Breath Or Wheezing Oxygen Home #1 ea 05/21/21 12/23/22 Rx amlodipine 5 mg tablet (Norvasc) 5 mg PO QAM #30 tabs 05/21/21 12/25/22 Rx aspirin 81 mg tablet,delayed 81 mg PO QAM #90 tabs 05/21/21 12/25/22 Rx release atorvastatin 40 mg tablet 40 mg PO QAM #30 tabs 05/21/21 12/25/22 Rx pantoprazole 40 mg tablet,delayed 40 mg PO DAILY 10/20/21 12/25/22 History release anastrozole 1 mg tablet 1 mg PO DAILY 10/23/22 12/25/22 History levothyroxine 50 mcg tablet 50 mcg PO DAILY 10/23/22 12/25/22 History collagenase clostridium histo. 250 1 applic EXT DAILY #30 grams 11/02/22 12/25/22 Rx unit/gram topical ointment (Santyl) nystatin 100,000 unit/gram topical 1 applic EXT BID #30 grams 11/02/22 12/25/22 Rx cream ondansetron 4 mg disintegrating 4 mg PO Q6H PRN nausea #15 tabs 11/02/22 12/25/22 Rx tablet polyethylene glycol 3350 17 gram 17 g PO DAILY PRN constipation 12/09/22 12/25/22 History oral powder packet (Miralax) sennosides 8.6 mg-docusate sodium 1 tab PO DAILY 12/25/22 12/25/22 History 50 mg tablet (Senokot-S) Patient History Medical History Acute alteration in mental status Acute CHF (congestive heart failure) Acute fjk-[id number] myocardial infarction Cellulitis Heart failure Hiatal hernia Hypertension Hypothermia Hypothyroidism Lymphedema of both lower extremities Meningitis spinal Neurogenic bladder (06/21/13) Paraplegia (06/21/13) Spina bifida (06/21/13) Takotsubo cardiomyopathy Traumatic open wound of left lower leg Surgical History H/O bone graft H/O section Hx of cholecystectomy Family History Father Hypertension Myocardial infarction Herniated disc Mother Myocardial infarction Colorectal cancer Uterine cancer Other Family history non-contributory Social History Smoking Status: Never smoker Second Hand Exposure: No; Hx Alcohol Use: No Hx Substance Use: No Preferred Language: Turkmen Communication Ability: Effective Visual Impairment: Limited Hearing Ability: Normal Administrative Director Required: No Beliefs That Will Affect Care: None marital status: Current Living Situation: Spouse current occupational status: retired How many Children do You have: 2 Other Information That Helps Us Care for You: No Feels Safe at Home: Yes Safety Concerns: Feels Safe At This Time caffeine: Yes (tea) during the past year weight has: increased > 10 lbs Physical Activity Frequency: Does not Exercise Do you think of yourself as: straight/heterosexual Gender Identity: Female Assistive Devices: CPAP, Glasses, Mechanical Lift, Oxygen - at Night, Scooter/Electric Scooter and Wheelchair Review of Systems Review of Systems: All systems reviewed & are unremarkable except as noted in HPI & below Physical Exam Constitutional: well developed, well nourished and comfortable; no acute distress Eyes: Sclera anicteric, no conjunctival injection ENMT: moist mucous membranes, no pallor Neck: trachea midline supple Respiratory: normal respiratory effort, lungs clear to auscultation Chest (Breasts): Additional Comments: RRR Gastrointestinal (Abdomen): normal bowel sounds, soft, nontender, no hepatosplenomegaly Inspection/Auscultation: abdomen not distended Skin: no rashes, warm and dry Neurologic: alert and oriented x 3 Psychiatric: normal mood and affect Results & Data ([facility]) Vital Signs (Past 12 Hours) Vital Signs Temp Pulse Resp BP Pulse Ox O2 Del Method 12/29/22 07:44 36.8 C 89 18 138/77 93 Room Air Laboratory Results 12/29/22 12/29/22 12/29/22 Range/Units 08:49 08:49 08:49 WBC 7.18 (4.8-10.8) K/ul RBC 3.27 L (4.20-5.40) M/uL Hgb 9.6 L (12.0-16.0) g/dl Hct 30.1 L (37.0-47.0) % MCV 92.0 (80.0-100.0) fL MCH 29.4 (25.0-34.0) pg MCHC 31.9 L (32.0-36.0) g/dL RDW Std Deviation 60.3 H (36.4-46.3) fL RDW Coeff of Deanna 18.1 H (11.5-14.5) % Plt Count 130 (130-400) K/uL MPV 11.6 (9.4-12.4) fL Sodium 146 H (136-145) mmol/L Potassium 4.2 (3.5-5.1) mmol/L Chloride 110 H (98-107) mmol/L Carbon Dioxide 31 (21-32) mmol/L Anion Gap 5 (3-11) BUN 29 H (6-23) mg/dl Creatinine 0.44 L (0.6-1.2) mg/dl Est Cr Clr Drug Dosing 122.1 ml/min Est GFR ( Amer) 117.7 ml/min Est GFR (Non-Af Amer) 101.6 ml/min BUN/Creatinine Ratio 65.9 H (10-20) Glucose 103 H (70-99(Fasting)) mg/dl Calcium 9.7 (8.5-10.1) mg/dl Total Bilirubin 2.1 H (0.2-1.0) mg/dl AST 1241 H (13-39) U/L ALT 1114 H (7-52) U/L Alkaline Phosphatase 720 H (34-104) U/L Total Protein 7.0 (6.0-8.3) gm/dl Albumin 3.3 L (3.4-5.0) gm/dl Globulin 3.7 (2.5-4.0) gm/dl Albumin/Globulin Ratio 0.9 (0.9-2) 25-OH Vitamin D Total 24.3 L (30-100) ng/ml Diagnostic Findings CXR: FINDINGS: Cardiomediastinal and hilar silhouettes are unchanged. No pneumothorax, pleural effusion, airspace consolidation or pulmonary edema. Unchanged left hemidiaphragmatic elevation. Bones appear grossly intact. Unchanged scoliosis of the spine. IMPRESSION: No acute process.
--- NOTE | 2022-12-29 11:21 | XRay Report ---
KUB HISTORY: Acute generalized abdominal pain with reported constipation eval constipation COMPARISON: 11/01/2022 FINDINGS: Chronic appearance of the lumbar spine, pelvis and proximal femora with spinal dysraphism. Demineralized appearance of the bones without acute fracture identified. Sigmoidal scoliosis of the s pine. Moderate gaseous distention of the stomach. Nonobstructive bowel gas pattern. Cholecystectomy. Extens ana colonic fecal retention and has progressed from the prior study. 10 mm calcification within the r ight midabdomen is again noted, likely within the subcutaneous tissues of the back. No definite uroli th identified. IMPRESSION: 1. Nonobstructive bowel gas pattern. 2. Gaseous distention of the stomach. 3. Extensive colonic fecal retention. ACT 112: Negative or not required by law. The above report was generated using voice recognition software. It may contain grammatical, syntax o r spelling errors. Electronically signed by: Saeid Chong M.D. 12/29/2022 11:20 AM
[2022-12-29] MEDS ORDERED: bisacodyL 10 MG SUPP PR STA (12:14)
[2022-12-29 12:59] LABS: INR 1.2 (0.9-1.1); Prothrombin Time 12.6 Seconds (9.0-12.0)
--- NOTE | 2022-12-29 14:47 | Magnetic Resonance Report ---
MRCP CLINICAL HISTORY: Elevated LFTs, evaluate for obstructing stone. TECHNIQUE: Utilizing a 1.5 Isi magnet and dedicated coil, multiplanar, multiecho imaging of the upp er abdomen was performed utilizing heavily T2 weighted pulsing sequences without IV contrast. COMPARISON STUDY: Right upper quadrant ultrasound January 21, [address] of the abdomen and pelvis Apr. FINDINGS: This exam is compromised by susceptibility artifact related to cholecystectomy clips. Addit ionally, there is motion artifact. No biliary ductal dilatation is identified. The common bile duct m easures 5 mm in caliber. There is an equivocal 5 mm filling defect within the distal common bile duct on the 3D MRCP sequence image 64 of 120. Artifact is favored. This finding is not confirmed on the r emainder of the pulsing sequences. A 1.2 cm left hepatic lobe cyst is unchanged. There are no suspici ous hepatic lesions. No pancreatic ductal dilatation is present. There is no peripancreatic fluid. Se veral renal cysts are noted. Left hydroureter is similar to CT of May 20, 2021. This is likely chron ic. The bladder wall is irregular and trabeculated. Postoperative and congenital deformities within t he spine are incidentally noted. There is no abdominal lymphadenopathy. There is no ascites. IMPRESSION: 1. No biliary ductal dilatation status post cholecystectomy. 2. Equivocal 5 mm filling defect within the distal common bile duct. Artifact is favored. A common bi le duct calculus could appear similar although is considered less likely. ACT 112: Negative or not required by law. Electronically signed by: Kwabena Montalvo M.D. 12/29/2022 2:46 PM
--- NOTE | 2022-12-29 15:34 | Ultrasound Report ---
US duplex portal hepatic veins HISTORY: 72 years-old Female elevated LFTs acutely elevated LFTs COMPARISON: MRCP 12/29/2022 TECHNIQUE: Multiple real-time sonographic images of the hepatic vasculature were obtained assessing g rayscale appearance, color and spectral flow FINDINGS: Patent portal and hepatic veins. Hepatopedal flow within the portal vein. IVC and hepatic artery also appear patent and unremarkable. IMPRESSION: Normal exam. ACT 112: Negative or not required by law. The above report was generated using voice recognition software. It may contain grammatical, syntax o r spelling errors. Electronically signed by: Saeid Chong M.D. 12/29/2022 3:33 PM
--- NOTE | 2022-12-29 15:44 | Ultrasound Report ---
US liver CLINICAL HISTORY: Elevated liver function tests. COMPARISON STUDY: Right upper quadrant ultrasound January 21, 2022 and MRCP performed earlier today. FINDINGS: There is no biliary ductal dilatation status post cholecystectomy. The common bile duct roderick sures 5 mm in caliber. Pancreas is obscured by overlying bowel gas. There is no right hydronephrosis. The lower pole of the right kidney is obscured by bowel gas as well. IMPRESSION: 1. No biliary ductal dilatation status post cholecystectomy. 2. Obscured pancreas. ACT 112: Negative or not required by law. Electronically signed by: Kwabena Montalvo M.D. 12/29/2022 3:43 PM
[2022-12-30] MEDS: LEVOTHYROXINE SODIUM 50 MCG TABLET PO SCH (05:33)
[2022-12-30 08:15] LABS: BUN Creatinine Ratio 66.7 (10-20); Calcium 9.4 mg/dl (8.5-10.1); Creatinine Clr Calc Pharmacy 127.9 ml/min; Est GFR (African American) 119.5 ml/min; Est GFR (Non-African American) 103.1 ml/min; Potassium 4.2 mmol/L (3.5-5.1)
[2022-12-30 08:19] LABS: Albumin Level 3.4 gm/dl (3.4-5.0); Bilirubin Direct 0.4 mg/dl (0-0.2); Bilirubin,Total 1.5 mg/dl (0.2-1.0)
[2022-12-30] MEDS: ASPIRIN 81 MG ECTAB PO SCH (08:22)
[2022-12-30] MEDS: ANASTROZOLE 1 MG TAB PO SCH (08:23)
[2022-12-30] MEDS: amLODIPine BESYLATE 5 MG TAB PO SCH (08:23)
[2022-12-30] MEDS: PANTOprazole 40 MG TAB PO SCH (08:23)
--- NOTE | 2022-12-30 08:24 | Hospitalist Progress Note ---
Date of Service December 30, 2022 Assessment & Plan (1) Cellulitis: Plan: Chronic left lower extremity pressure ulceration stage IV Increased drainage/purulant for 2-3 days prior to admit w/ hypothermia Abx: Ceftriaxone IV initially Dr Baker on consult -- bedside debridement 12/27 Cultures w/ pseudomonas, group B strep -- discussed w/ pharmacy and switched to PO Levaquin to complete course WBC wnl, afebrile BCx remain NGTD Wound RN consulted-- messaged about changing vac, insurance auth received for d/c 1L 1/2nSS for hypernatremia/mild dehydration on 12/29, ordered 1L D5W given Na 148 on AM labs and mild dehydration/poor PO intake at times Will need HH -- arranged for tomorrow, but given continued inpatient stay, arranged to begin on Tuesday LFT elevation as below (2) Elevated LFTs: Plan: On admission, LFTs AST 44, ALP 109 on 12/25 BPs low normal 104/53 at that time w/ reported hypothermia but no significant low BPs recorded. Did look like she had decent dehydration on admit w/ BUN 44/Cr 0.71 (Cr usually in 0.42 range) Recheck of labs 12/29 after n/v overnight w/ TB 2.1, AST 1241, ALT 1114, ALP 720 CK wnl, INR w/o significant elevation Made NPO, obtained MRCP, consulted GI MRCP w/o clear evidence for retained stone -- impression : Equivocal 5 mm filling defect within the distal common bile duct. Artifact is favored. A common bile duct calculus could appear similar although is considered less likely. Liver US w/o ductal dilation, portal vein US patent w/o stenosis or evidence for ischemia Was on Ceftriaxone 12/25-12/29, ?medication related, ?viral Hepatitis panel pending, CMV, EBV Avoiding hepatotoxic agents, placed atorvastatin on hold for now LFTs improving on repeat -- TB 1.5, AST 635, ALT 827, ALP 703 TSH slight elevation, ?reactive from infection as above. -- Would repeat TFT in 4-6 wks/adjustment as needed As discussed w/ GI on the phone, will plan for ERCP/EUS tomorrow to be complete NPO at midnight Continue to trend LFTs in AM (3) Stage IV pressure ulcer: Plan: to LLE laterally wound consulted and following, wound vac approved and HH arranged by CM complete course abx w/ levaquin as above (4) Lymphedema: Plan: Chronic/stable, wound RN consulted and following (5) Hypothyroidism: Plan: Last TSH 3.218 in September TSH slightly elevated 5.271, Ft4 wnl ?if reactive in setting of current infection but would rec repeating in 4-6 wk s/adjustment as needed could consider increasing to 75mcg daily as well given ongoing issues w/ constipation/possible stone formation as above (6) CAD (coronary artery disease): Plan: H/o HTN/CAD/HLD/CHF -- stable Continue Atorvastatin (CK not elevated, but will hold given elevated LFTs) Continue ASA, and Amlodipine (7) Severe obstructive sleep apnea: Plan: Continue cpap at HS (8) Breast cancer: Plan: Continue Anastrozole (9) Constipation: Plan: Last BM documented 12/26, +BS on exam On miralax/senna daily at home Was given dulcolax [place] x 1 on 12/29, no obstruction on KUB Started miralax/senna daily and monitor response; additional Dulcolax suppository daily if no BM (10) Hypernatremia: Plan: review of labs this morning w/ Na 146--> 148, did get 1L 1/2 NSS on 12/29 Still poor intake but does appear slightly improved, ordered D5W @ 80cc/hr x 1L and will monitor labs on repeat Plan NPO at midnight for ERCP/EUS tomorrow continue wound vac/care/abx for LLE infection as outlined -- HH to start on Tue. Possible d/c tomorrow after procedure if negative/improved PO intake/moving bowels vs Tuesday Admission and Anticipated Discharge Date Admission Date: December 25, 2022 Supervising Physician Co-Signing Physician Notes PA Supervision Note: I did not personally see or examine the patient today, but I verified all peterson points of OSMAR Hensley's assessment and plan with the following exceptions/additions: None Subjective eval this morning, doing well. poor appetite but slightly improved from day prior. Denies abdominal pain or further nausea/vomiting. Messaged wound RN to see about timing for change of wound vac but CM to arrange for HH to start Tuesday given procedures for tomorrow for eval of stone but did discuss per discussion w/ GI, unlikely to have caused LFT elevations to that degree. If procedures go well/no issues she would be hopeful for d/c tomorrow but may need to be Tuesday morning but we will monitor. Given suppository yesterday, does not feel she had a bowel movement. Does have abd sounds on exam, will start bowel regimen. Thankfully other imaging NEGATIVE for ischemia. No fever/chills, chest pain, shortness of breath reported. Review of Systems Review of Systems: All systems reviewed & are unremarkable except as noted in HPI & below Physical Exam Physical Exam: General: WD/WN female baseline spina bifida sitting up in chair eating chicken/mashed potatoes HEENT: head atraumatic, mm slightly dry (improved from yesterday), trachea midline Resp: diminished in bases w/o w/c, on room air CV: RRR, no mrg, b/l chronic lymphedema, nontender to palpation (baseline neuropathy reported) GI: +BS throughout, soft, slightly distended, nontender to palpation MSK/Neuro: LLE cellulitis almost resolved, wound vac in place, drainage in canister, baseline wheelchair/spina bifida Skin: in addition to LLE cellulitis/wound, chronic b/l lymphedema w/ dry/scaling skin Results & Data Results & Data ([facility]) Vital Signs (Past 12 Hours) Vital Signs Temp Pulse Resp BP Pulse Ox O2 Del Method 12/30/22 08:04 95 Room Air 12/30/22 07:22 36.7 C 86 16 151/90 H 91 Room Air 12/29/22 22:34 36.6 C 81 17 128/76 95 Room Air Laboratory Results 12/30/22 12/30/22 12/30/22 Range/Units 07:34 07:34 07:34 WBC 6.23 (4.8-10.8) K/ul RBC 3.20 L (4.20-5.40) M/uL Hgb 9.4 L (12.0-16.0) g/dl Hct 29.6 L (37.0-47.0) % MCV 92.5 (80.0-100.0) fL MCH 29.4 (25.0-34.0) pg MCHC 31.8 L (32.0-36.0) g/dL RDW Std Deviation 59.9 H (36.4-46.3) fL RDW Coeff of Deanna 17.9 H (11.5-14.5) % Plt Count 139 (130-400) K/uL MPV 11.4 (9.4-12.4) fL Immature Gran % (Auto) 0.8 % Neut % (Auto) 62.2 % Lymph % (Auto) 21.3 % [place] % (Auto) 9.3 % Eos % (Auto) 5.9 % Baso % (Auto) 0.5 % Neut # (Auto) 3.87 (1.40-6.50) K/uL Lymph # (Auto) 1.33 (1.2-3.4) K/uL [place] # (Auto) 0.58 (0.11-0.59) K/uL Eos # (Auto) 0.37 (0-0.50) K/uL Baso # (Auto) 0.03 (0-0.2) K/uL Immature Gran # (Auto) 0.05 (0.01-0.20) K/uL PT (9.0-12.0) Seconds INR (0.9-1.1) Sodium 148 H (136-145) mmol/L Potassium 4.2 (3.5-5.1) mmol/L Chloride 112 H (98-107) mmol/L Carbon Dioxide 29 (21-32) mmol/L Anion Gap 7 (3-11) BUN 28 H (6-23) mg/dl Creatinine 0.42 L (0.6-1.2) mg/dl Est Cr Clr Drug Dosing 127.9 ml/min Est GFR ( Amer) 119.5 ml/min Est GFR (Non-Af Amer) 103.1 ml/min BUN/Creatinine Ratio 66.7 H (10-20) Glucose 77 (70-99(Fasting)) mg/dl Calcium 9.4 (8.5-10.1) mg/dl Total Bilirubin 1.5 H (0.2-1.0) mg/dl Direct Bilirubin 0.4 H (0-0.2) mg/dl AST 635 H (13-39) U/L ALT 827 H (7-52) U/L Alkaline Phosphatase 703 H (34-104) U/L Total Protein 7.0 (6.0-8.3) gm/dl Albumin 3.4 (3.4-5.0) gm/dl TSH 5.271 H (0.300-4.500) uIu/ml Free T4 1.17 (0.61-1.60) ng/dl CMV IgM Ab EBV Capsid Ag IgM Ab Hepatitis A IgM Ab (NON-REACTIVE) Hep Bs Antigen (NON-REACTIVE) Hep Bs Ag Confirmation Hep B Core IgM Ab (NON-REACTIVE) Hepatitis C Ab (EIA) (NON-REACTIVE) Hep C Ab Signal/Cutoff (<1.00) 12/29/22 12/29/22 12/29/22 Range/Units 11:53 10:44 08:49 WBC (4.8-10.8) K/ul RBC (4.20-5.40) M/uL Hgb (12.0-16.0) g/dl Hct (37.0-47.0) % MCV (80.0-100.0) fL MCH (25.0-34.0) pg MCHC (32.0-36.0) g/dL RDW Std Deviation (36.4-46.3) fL RDW Coeff of Deanna (11.5-14.5) % Plt Count (130-400) K/uL MPV (9.4-12.4) fL Immature Gran % (Auto) % Neut % (Auto) % Lymph % (Auto) % [place] % (Auto) % Eos % (Auto) % Baso % (Auto) % Neut # (Auto) (1.40-6.50) K/uL Lymph # (Auto) (1.2-3.4) K/uL [place] # (Auto) (0.11-0.59) K/uL Eos # (Auto) (0-0.50) K/uL Baso # (Auto) (0-0.2) K/uL Immature Gran # (Auto) (0.01-0.20) K/uL PT 12.6 H (9.0-12.0) Seconds INR 1.2 H (0.9-1.1) Sodium (136-145) mmol/L Potassium (3.5-5.1) mmol/L Chloride (98-107) mmol/L Carbon Dioxide (21-32) mmol/L Anion Gap (3-11) BUN (6-23) mg/dl Creatinine (0.6-1.2) mg/dl Est Cr Clr Drug Dosing ml/min Est GFR ( Amer) ml/min Est GFR (Non-Af Amer) ml/min BUN/Creatinine Ratio (10-20) Glucose (70-99(Fasting)) mg/dl Calcium (8.5-10.1) mg/dl Total Bilirubin (0.2-1.0) mg/dl Direct Bilirubin (0-0.2) mg/dl AST (13-39) U/L ALT (7-52) U/L Alkaline Phosphatase (34-104) U/L Total Protein (6.0-8.3) gm/dl Albumin (3.4-5.0) gm/dl TSH (0.300-4.500) uIu/ml Free T4 (0.61-1.60) ng/dl CMV IgM Ab Pending EBV Capsid Ag IgM Ab Pending Hepatitis A IgM Ab NON-REACTIVE (NON-REACTIVE) Hep Bs Antigen NON-REACTIVE (NON-REACTIVE) Hep Bs Ag Confirmation TNP Hep B Core IgM Ab NON-REACTIVE (NON-REACTIVE) Hepatitis C Ab (EIA) NON-REACTIVE (NON-REACTIVE) Hep C Ab Signal/Cutoff 0.02 (<1.00) Diagnostic Findings Cholangiopancreatography MRI 12/29/22 10:04 MRCP CLINICAL HISTORY: Elevated LFTs, evaluate for obstructing stone. TECHNIQUE: Utilizing a 1.5 Isi magnet and dedicated coil, multiplanar, multiecho imaging of the upper abdomen was performed utilizing heavily T2 weighted pulsing sequences without IV contrast. COMPARISON STUDY: Right upper quadrant ultrasound January 21, [address] of the abdomen and pelvis May 20, 2021. FINDINGS: This exam is compromised by susceptibility artifact related to cholecystectomy clips. Additionally, there is motion artifact. No biliary ductal dilatation is identified. The common bile duct measures 5 mm in caliber. There is an equivocal 5 mm filling defect within the distal common bile duct on the 3D MRCP sequence image 64 of 120. Artifact is favored. This finding is not confirmed on the remainder of the pulsing sequences. A 1.2 cm left hepatic lobe cyst is unchanged. There are no suspicious hepatic lesions. No pancreatic ductal dilatation is present. There is no peripancreatic fluid. Several renal cysts are noted. Left hydroureter is similar to CT of May 20, 2021. This is likely chronic. The bladder wall is irregular and trabeculated. Postoperative and con genital deformities within the spine are incidentally noted. There is no abdominal lymphadenopathy. There is no ascites. IMPRESSION: 1. No biliary ductal dilatation status post cholecystectomy. 2. Equivocal 5 mm filling defect within the distal common bile duct. Artifact is favored. A common bile duct calculus could appear similar although is considered less likely. ACT 112: Negative or not required by law. Electronically signed by: Kwabena Montalvo M.D. 12/29/2022 2:46 PM KUB X-Ray 12/29/22 10:04 KUB HISTORY: Acute generalized abdominal pain with reported constipation eval constipation COMPARISON: 11/01/2022 FINDINGS: Chronic appearance of the lumbar spine, pelvis and proximal femora with spinal dysraphism. Demineralized appearance of the bones without acute fracture identified. Sigmoidal scoliosis of the spine. Moderate gaseous distention of the stomach. Nonobstructive bowel gas pattern. Cholecystectomy. Extensive colonic fecal retention and has progressed from the prior study. 10 mm calcification within the right midabdomen is again noted, likely within the subcutaneous tissues of the back. No definite urolith identified. IMPRESSION: 1. Nonobstructive bowel gas pattern. 2. Gaseous distention of the stomach. 3. Extensive colonic fecal retention. ACT 112: Negative or not required by law. The above report was generated using voice recognition software. It may contain grammatical, syntax or spelling errors. Electronically signed by: Saeid Chong M.D. 12/29/2022 11:20 AM Portal Vein US 12/29/22 12:04 US duplex portal hepatic veins HISTORY: 72 years-old Female elevated LFTs acutely elevated LFTs COMPARISON: MRCP 12/29/2022 TECHNIQUE: Multiple real-time sonographic images of the hepatic vasculature were obtained assessing grayscale appearance, color and spectral flow FINDINGS: Patent portal and hepatic veins. Hepatopedal flow within the portal vein. IVC and hepatic artery also appear patent and unremarkable. IMPRESSION: Normal exam. ACT 112: Negative or not required by law. The above report was generated using voice recognition software. It may contain grammatical, syntax or spelling errors. Electronically signed by: Saeid Chong M.D. 12/29/2022 3:33 PM Liver Ultrasound 12/29/22 12:32 US liver CLINICAL HISTORY: Elevated liver function tests. COMPARISON STUDY: Right upper quadrant ultrasound January 21, 2022 and MRCP performed earlier today. FINDINGS: There is no biliary ductal dilatation status post cholecystectomy. The common bile duct measures 5 mm in caliber. Pancreas is obscured by overlying bowel gas. There is no right hydronephrosis. The lower pole of the right kidney is obscured by bowel gas as well. IMPRESSION: 1. No biliary ductal dilatation status post cholecystectomy. 2. Obscured pancreas. ACT 112: Negative or not required by law. Electronically signed by: Kwabena Montalvo M.D. 12/29/2022 3:43 PM PG Care Time/CCT Total # of Minutes Spent Total Time Spent with Patient: Total time spent is greater than 50% in coordination of care (as documented) at patient's floor/unit and/or counseling patient: Coding Level of Care Code 46285 SUB INP/OBS CARE 3/50MIN Diagnoses Cellulitis L03.90 Site of cellulitis: unspecified site Elevated LFTs R79.89 Stage IV pressure ulcer L89.94 Lymphedema I89.0 Hypothyroidism E03.9 CAD (coronary artery disease) I25.10 Severe obstructive sleep apnea G47.33 Breast cancer C50.919 Constipation K59.00 Hypernatremia E87.0 (1) Cellulitis Site of cellulitis: unspecified site Qualified Code(s): L03.90 - Cellulitis, unspecified
[2022-12-30] MEDS ORDERED: DEXTROSE 5% 1,000 ML IV SCH (08:30)
[2022-12-30 08:31] LABS: Thyroid Stimulating Hormone 5.271 uIu/ml (0.300-4.500)
[2022-12-30 09:03] LABS: Hematocrit (blood only) 29.6 % (37.0-47.0); Hemoglobin 9.4 g/dl (12.0-16.0); Mean Corpuscular Hemoglobin 29.4 pg (25.0-34.0); Mean Corpuscular Hgb Conc 31.8 g/dL (32.0-36.0); Mean Corpuscular Volume 92.5 fL (80.0-100.0); Mean Platelet Volume 11.4 fL (9.4-12.4); Platelet Count 139 K/uL (130-400); RDW Coefficient of Variation 17.9 % (11.5-14.5); RDW Standard Deviation 59.9 fL (36.4-46.3); White Blood Count 6.23 K/ul (4.8-10.8)
[2022-12-30 09:04] LABS: Basophils # (auto) 0.03 K/uL (0-0.2); Basophils % (auto) 0.5 %; Eosinophils # (auto) 0.37 K/uL (0-0.50); Eosinophils % (auto) 5.9 %; Immature Granulocytes # (auto) 0.05 K/uL (0.01-0.20); Immature Granulocytes % (auto) 0.8 %; Lymphocytes # (auto) 1.33 K/uL (1.2-3.4); Lymphocytes % (auto) 21.3 %; Monocytes # (auto) 0.58 K/uL (0.11-0.59); Monocytes % (auto) 9.3 %; Neutrophils # (auto) 3.87 K/uL (1.40-6.50); Neutrophils % (auto) 62.2 %
[2022-12-30 09:07] LABS: T4 Free Thyroxine 1.17 ng/dl (0.61-1.60)
--- NOTE | 2022-12-30 09:32 | Gastroenterology Progress Note ---
Date of Service December 30, 2022 Assessment & Plan (1) Elevated LFTs: (2) Stage IV pressure ulcer: Plan Pt is a 72 y/o female with h/o spina bifida, paraplegia, wheelchair bound, admitted with chronic lower extremity pressure wounds, and we are consulted for acutely elevated LFTs. Today LFTs have trended down but remain elevated. Imaging from yesterday reviewed, no obvious biliary dilation, blood flow to the liver appears intact, however MRCP equivocal for stone dz in the CBD. On exam she is well-appearing; abd nontender. - Given pt's overall history, lab and imaging findings, will elect to proceed with EUS, +/- ERCP tomorrow to evaluate for presence of biliary stone dz - NPO at midnight - Await viral hep labs - CPK not elevated - INR not significantly elevated - Would trend Daily LFTs - Would avoid hepatotoxins Thank you for allowing us to participate in the care of this patient. Please call with any acute changes, questions or concerns. Please see addendum below with additional recommendation from my supervising physician. Admission and Anticipated Discharge Date Admission Date: December 25, 2022 Supervising Physician Co-Signing Physician Notes I saw and evaluated the patient on 12 30, we are planning to do upper endoscopy endoscopic ultrasound and possible ERCP on Tuesday. These call with any questio ns or concerns. The patient's liver enzyme panel is most suggestive of a medication reaction or perhaps ischemia. Given the MRI findings we are planning to do endoscopic ultrasound to ensure that she does not have a stone within the cbd.. Subjective Patient seen and examined, chart reviewed. No acute events overnight. Patient feels no different. Tolerating her diet. Denies abdominal pain, nausea vomiting, melena, bloody stools, jaundice, fevers chills, chest pain shortness of breath. LFTs have trended down. Review of Systems Review of Systems: All systems reviewed & are unremarkable except as noted in HPI & below Physical Exam Constitutional: well developed, well nourished and comfortable; no acute distress Neck: trachea midline Respiratory: normal respiratory effort, lungs clear to auscultation Gastrointestinal (Abdomen): normal bowel sounds, soft, nontender, no hepatosplenomegaly Inspection/Auscultation: abdomen not distended Skin: no rashes, warm and dry Results & Data ([facility]) Vital Signs (Past 12 Hours) Vital Signs Temp Pulse Resp BP Pulse Ox O2 Del Method 12/30/22 08:04 95 Room Air 12/30/22 07:22 36.7 C 86 16 151/90 H 91 Room Air 12/29/22 22:34 36.6 C 81 17 128/76 95 Room Air Laboratory Results 12/30/22 12/30/22 12/30/22 Range/Units 07:34 07:34 07:34 WBC 6.23 (4.8-10.8) K/ul RBC 3.20 L (4.20-5.40) M/uL Hgb 9.4 L (12.0-16.0) g/dl Hct 29.6 L (37.0-47.0) % MCV 92.5 (80.0-100.0) fL MCH 29.4 (25.0-34.0) pg MCHC 31.8 L (32.0-36.0) g/dL RDW Std Deviation 59.9 H (36.4-46.3) fL RDW Coeff of Deanna 17.9 H (11.5-14.5) % Plt Count 139 (130-400) K/uL MPV 11.4 (9.4-12.4) fL Immature Gran % (Auto) 0.8 % Neut % (Auto) 62.2 % Lymph % (Auto) 21.3 % [place] % (Auto) 9.3 % Eos % (Auto) 5.9 % Baso % (Auto) 0.5 % Neut # (Auto) 3.87 (1.40-6.50) K/uL Lymph # (Auto) 1.33 (1.2-3.4) K/uL [place] # (Auto) 0.58 (0.11-0.59) K/uL Eos # (Auto) 0.37 (0-0.50) K/uL Baso # (Auto) 0.03 (0-0.2) K/uL Immature Gran # (Auto) 0.05 (0.01-0.20) K/uL PT (9.0-12.0) Seconds INR (0.9-1.1) Sodium 148 H (136-145) mmol/L Potassium 4.2 (3.5-5.1) mmol/L Chloride 112 H (98-107) mmol/L Carbon Dioxide 29 (21-32) mmol/L Anion Gap 7 (3-11) BUN 28 H (6-23) mg/dl Creatinine 0.42 L (0.6-1.2) mg/dl Est Cr Clr Drug Dosing 127.9 ml/min Est GFR ( Amer) 119.5 ml/min Est GFR (Non-Af Amer) 103.1 ml/min BUN/Creatinine Ratio 66.7 H (10-20) Glucose 77 (70-99(Fasting)) mg/dl Calcium 9.4 (8.5-10.1) mg/dl Total Bilirubin 1.5 H (0.2-1.0) mg/dl Direct Bilirubin 0.4 H (0-0.2) mg/dl AST 635 H (13-39) U/L ALT 827 H (7-52) U/L Alkaline Phosphatase 703 H (34-104) U/L Total Creatine Kinase (26-192) U/L Total Protein 7.0 (6.0-8.3) gm/dl Albumin 3.4 (3.4-5.0) gm/dl Globulin (2.5-4.0) gm/dl Albumin/Globulin Ratio (0.9-2) 25-OH Vitamin D Total (30-100) ng/ml TSH 5.271 H (0.300-4.500) uIu/ml Free T4 1.17 (0.61-1.60) ng/dl CMV IgM Ab EBV Capsid Ag IgM Ab Hepatitis A IgM Ab Hep Bs Antigen Hep Bs Ag Confirmation Hep B Core IgM Ab Hepatitis C Ab (EIA) Hep C Ab Signal/Cutoff 12/29/22 12/29/22 12/29/22 Range/Units 11:53 10:44 10:44 WBC (4.8-10.8) K/ul RBC (4.20-5.40) M/uL Hgb (12.0-16.0) g/dl Hct (37.0-47.0) % MCV (80.0-100.0) fL MCH (25.0-34.0) pg MCHC (32.0-36.0) g/dL RDW Std Deviation (36.4-46.3) fL RDW Coeff of Deanna (11.5-14.5) % Plt Count (130-400) K/uL MPV (9.4-12.4) fL Immature Gran % (Auto) % Neut % (Auto) % Lymph % (Auto) % [place] % (Auto) % Eos % (Auto) % Baso % (Auto) % Neut # (Auto) (1.40-6.50) K/uL Lymph # (Auto) (1.2-3.4) K/uL [place] # (Auto) (0.11-0.59) K/uL Eos # (Auto) (0-0.50) K/uL Baso # (Auto) (0-0.2) K/uL Immature Gran # (Auto) (0.01-0.20) K/uL PT 12.6 H (9.0-12.0) Seconds INR 1.2 H (0.9-1.1) Sodium (136-145) mmol/L Potassium (3.5-5.1) mmol/L Chloride (98-107) mmol/L Carbon Dioxide (21-32) mmol/L Anion Gap (3-11) BUN (6-23) mg/dl Creatinine (0.6-1.2) mg/dl Est Cr Clr Drug Dosing ml/min Est GFR ( Amer) ml/min Est GFR (Non-Af Amer) ml/min BUN/Creatinine Ratio (10-20) Glucose (70-99(Fasting)) mg/dl Calcium (8.5-10.1) mg/dl Total Bilirubin (0.2-1.0) mg/dl Direct Bilirubin 1.0 H (0-0.2) mg/dl AST (13-39) U/L ALT (7-52) U/L Alkaline Phosphatase (34-104) U/L Total Creatine Kinase 14 L (26-192) U/L Total Protein (6.0-8.3) gm/dl Albumin (3.4-5.0) gm/dl Globulin (2.5-4.0) gm/dl Albumin/Globulin Ratio (0.9-2) 25-OH Vitamin D Total (30-100) ng/ml TSH (0.300-4.500) uIu/ml Free T4 (0.61-1.60) ng/dl CMV IgM Ab EBV Capsid Ag IgM Ab Hepatitis A IgM Ab Pending Hep Bs Antigen Pending Hep Bs Ag Confirmation Pending Hep B Core IgM Ab Pending Hepatitis C Ab (EIA) Pending Hep C Ab Signal/Cutoff Pending 12/29/22 12/29/22 12/29/22 Range/Units 08:49 08:49 08:49 WBC (4.8-10.8) K/ul RBC (4.20-5.40) M/uL Hgb (12.0-16.0) g/dl Hct (37.0-47.0) % MCV (80.0-100.0) fL MCH (25.0-34.0) pg MCHC (32.0-36.0) g/dL RDW Std Deviation (36.4-46.3) fL RDW Coeff of Deanna (11.5-14.5) % Plt Count (130-400) K/uL MPV (9.4-12.4) fL Immature Gran % (Auto) % Neut % (Auto) % Lymph % (Auto) % [place] % (Auto) % Eos % (Auto) % Baso % (Auto) % Neut # (Auto) (1.40-6.50) K/uL Lymph # (Auto) (1.2-3.4) K/uL [place] # (Auto) (0.11-0.59) K/uL Eos # (Auto) (0-0.50) K/uL Baso # (Auto) (0-0.2) K/uL Immature Gran # (Auto) (0.01-0.20) K/uL PT (9.0-12.0) Seconds INR (0.9-1.1) Sodium 146 H (136-145) mmol/L Potassium 4.2 (3.5-5.1) mmol/L Chloride 110 H (98-107) mmol/L Carbon Dioxide 31 (21-32) mmol/L Anion Gap 5 (3-11) BUN 29 H (6-23) mg/dl Creatinine 0.44 L (0.6-1.2) mg/dl Est Cr Clr Drug Dosing 122.1 ml/min Est GFR ( Amer) 117.7 ml/min Est GFR (Non-Af Amer) 101.6 ml/min BUN/Creatinine Ratio 65.9 H (10-20) Glucose 103 H (70-99(Fasting)) mg/dl Calcium 9.7 (8.5-10.1) mg/dl Total Bilirubin 2.1 H (0.2-1.0) mg/dl Direct Bilirubin (0-0.2) mg/dl AST 1241 H (13-39) U/L ALT 1114 H (7-52) U/L Alkaline Phosphatase 720 H (34-104) U/L Total Creatine Kinase (26-192) U/L Total Protein 7.0 (6.0-8.3) gm/dl Albumin 3.3 L (3.4-5.0) gm/dl Globulin 3.7 (2.5-4.0) gm/dl Albumin/Globulin Ratio 0.9 (0.9-2) 25-OH Vitamin D Total 24.3 L (30-100) ng/ml TSH (0.300-4.500) uIu/ml Free T4 (0.61-1.60) ng/dl CMV IgM Ab Pending EBV Capsid Ag IgM Ab Pending Hepatitis A IgM Ab Hep Bs Antigen Hep Bs Ag Confirmation Hep B Core IgM Ab Hepatitis C Ab (EIA) Hep C Ab Signal/Cutoff Diagnostic Findings MRCP: FINDINGS: This exam is compromised by susceptibility artifact related to cholecystectomy clips. Additionally, there is motion artifact. No biliary ductal dilatation is identified. The common bile duct measures 5 mm in caliber. There is an equivocal 5 mm filling defect within the distal common bile duct on the 3D MRCP sequence image 64 of 120. Artifact is favored. This finding is not confirmed on the remainder of the pulsing sequences. A 1.2 cm left hepatic lobe cyst is unchanged. There are no suspicious hepatic lesions. No pancreatic ductal dilatation is present. There is no peripancreatic fluid. Several renal cysts are noted. Left hydroureter is similar to CT of May 20, 2021. This is likely chronic. The bladder wall is irregular and trabeculated. Postoperative and congenital deformities within the spine are incidentally noted. There is no abdominal lymphadenopathy. There is no ascites. IMPRESSION: 1. No biliary ductal dilatation status post cholecystectomy. 2. Equivocal 5 mm filling defect within the distal common bile duct. Artifact is favored. A common bile duct calculus could appear similar although is considered less likely. Liver US: CLINICAL HISTORY: Elevated liver function tests. COMPARISON STUDY: Right upper quadrant ultrasound January 21, 2022 and MRCP performed earlier today. FINDINGS: There is no biliary ductal dilatation status post cholecystectomy. The common bile duct measures 5 mm in caliber. Pancreas is obscured by overlying bowel gas. There is no right hydronephrosis. The lower pole of the right kidney is obscured by bowel gas as well. IMPRESSION: 1. No biliary ductal dilatation status post cholecystectomy. 2. Obscured pancreas. Portal vein US: US duplex portal hepatic veins HISTORY: 72 years-old Female elevated LFTs acutely elevated LFTs COMPARISON: MRCP 12/29/2022 TECHNIQUE: Multiple real-time sonographic images of the hepatic vasculature were obtained assessing grayscale appearance, color and spectral flow FINDINGS: Patent portal and hepatic veins. Hepatopedal flow within the portal vein. IVC and hepatic artery also appear patent and unremarkable. IMPRESSION: Normal exam.
[2022-12-30 11:53] LABS: HBSAG NON-REACTIVE (NON-REACTIVE); Hepatitis A Antibody IgM NON-REACTIVE (NON-REACTIVE); Hepatitis B Core Antibody IgM NON-REACTIVE (NON-REACTIVE)
[2022-12-30] MEDS: levoFLOXacin 750 MG TAB PO SCH (11:54)
[2022-12-30] MEDS: DOCUSATE SODIUM/SENNA 50/8.6MG TAB PO SCH (13:17)
[2022-12-30] MEDS: POLYETHYLENE (MIRALAX) 17 GM PACK PO SCH (13:17)
[2022-12-30] MEDS ORDERED: bisacodyL 10 MG SUPP PR PRN (15:04)
[2022-12-30 16:56] LABS: BUN Creatinine Ratio 68.2 (10-20); Calcium 9.3 mg/dl (8.5-10.1); Creatinine Clr Calc Pharmacy 122.1 ml/min; Est GFR (African American) 117.7 ml/min; Est GFR (Non-African American) 101.6 ml/min; Potassium 4.1 mmol/L (3.5-5.1)
[2022-12-30 17:44] LABS: Albumin Globulin Ratio 0.9 (0.9-2); Albumin Level 3.4 gm/dl (3.4-5.0); Bilirubin,Total 1.1 mg/dl (0.2-1.0); Globulin 3.7 gm/dl (2.5-4.0); Total Protein 7.1 gm/dl (6.0-8.3)
[2022-12-30] MEDS: ONDANSETRON INJ 2 MG/ML 2 ML VIAL IV PRN (18:10)
--- NOTE | 2022-12-30 19:04 | Anesthesiology Consultation ---
Date of Service December 30, 2022 Assessment & Plan (1) Encounter for pre-operative examination: Chart Review Chart Review: Acceptable Risk for Surgery and Patient NOT seen in Pre Admission Testing Consults Requested none History Surgery Operation Date: 12/31/22 11:25 Proposed Procedures p Endoscopic Ultrasonography Upper - Fatemeh Childress DO s Endoscopic Retrograde Cholangiopancreatogram - Fatemeh Childress DO Height/Weight Height: 5 ft Weight: 96.6 kg Allergies Allergy/AdvReac Type Severity Reaction Status Date / Time nalidixic acid Allergy Unknown Unknown Verified 12/25/22 20:00 Medications Home Medications Medication Instructions Recorded Confirmed Last Taken albuterol sulfate 90 mcg/actuation 2 puff inhalation DIRECTED PRN 09/21/18 12/25/22 Unknown aerosol inhaler Shortness Of Breath Or Wheezing Oxygen Home #1 ea 05/21/21 12/23/22 Unknown amlodipine 5 mg tablet (Norvasc) 5 mg PO QAM #30 tabs 05/21/21 12/25/22 01/19/22 aspirin 81 mg tablet,delayed 81 mg PO QAM #90 tabs 05/21/21 12/25/22 01/19/22 release atorvastatin 40 mg tablet 40 mg PO QAM #30 tabs 05/21/21 12/25/22 01/19/22 pantoprazole 40 mg tablet,delayed 40 mg PO DAILY 10/20/21 12/25/22 01/19/22 release anastrozole 1 mg tablet 1 mg PO DAILY 10/23/22 12/25/22 Unknown levothyroxine 50 mcg tablet 50 mcg PO DAILY 10/23/22 12/25/22 Unknown collagenase clostridium histo. 250 1 applic EXT DAILY #30 grams 11/02/22 12/25/22 Unknown unit/gram topical ointment (Santyl) nystatin 100,000 unit/gram topical 1 applic EXT BID #30 grams 11/02/22 12/25/22 Unknown cream ondansetron 4 mg disintegrating 4 mg PO Q6H PRN nausea #15 tabs 11/02/22 12/25/22 Unknown tablet polyethylene glycol 3350 17 gram 17 g PO DAILY PRN constipation 12/09/22 12/25/22 Unknown oral powder packet (Miralax) sennosides 8.6 mg-docusate sodium 1 tab PO DAILY 12/25/22 12/25/22 Unknown 50 mg tablet (Senokot-S) Active Medications Generic Name Dose Route Start Last Admin Trade Name Freq PRN Reason Stop Dose Admin Amlodipine Besylate 5 mg 12/26/22 09:00 12/30/22 08:23 Amlodipine Besylate 5 Mg Tab PO 01/25/23 08:59 5 mg QAM POLLY Administration Anastrozole 1 mg 12/26/22 09:00 12/30/22 08:23 Anastrozole 1 Mg Tab PO 01/25/23 08:59 1 mg DAILY POLLY Administration Aspirin 81 mg 12/26/22 09:00 12/30/22 08:22 Aspirin 81 Mg Ectab PO 01/25/23 08:59 81 mg QAM POLLY Administration Atorvastatin Calcium 40 mg 12/26/22 09:00 12/29/22 08:00 Atorvastatin 40 Mg Tab PO 01/25/23 08:59 40 mg QAM POLLY Administration Dextrose 1,000 mls @ 80 mls/hr 12/30/22 08:30 12/30/22 08:47 D5w IV 12/30/22 20:59 80 mls/hr .[id number] POLLY Administration Levofloxacin 750 mg 12/29/22 09:15 12/30/22 11:54 Levofloxacin 750 Mg Tab PO 01/08/23 09:14 750 mg Q24H POLLY Administration Protocol Levothyroxine Sodium 50 mcg 12/26/22 06:30 12/30/22 05:33 Levothyroxine Sodium 50 Mcg Tablet PO 01/25/23 06:29 50 mcg DAILYBB POLLY Administration Ondansetron HCl 4 mg 12/26/22 23:21 12/30/22 18:10 Ondansetron Inj 2 Mg/Ml 2 Ml Vial IV 01/25/23 23:20 4 mg Q6H PRN Administration Nausea And Vomiting Pantoprazole Sodium 40 mg 12/26/22 09:00 12/30/22 08:23 Pantoprazole 40 Mg Tab PO 01/25/23 08:59 40 mg DAILY POLLY Administration Polyethylene Glycol 17 gm 12/30/22 13:00 12/30/22 13:17 Polyethylene (Miralax) 17 Gm Pack PO 01/29/23 12:59 17 gm DAILY POLLY Administration Senna/Docusate Sodium 1 tab 12/30/22 13:00 12/30/22 13:17 Docusate Sodium/Senna 50/8.6mg Tab PO 01/29/23 12:59 1 tab QAM POLLY Administration Past Medical History Medical History (Updated 12/30/22 @ 19:04 by Franklyn Traylor MD) CAD (coronary artery disease) Cellulitis Elevated LFTs Heart failure Hiatal hernia History of CVA (cerebrovascular accident) Hypertension Hypothyroidism Lymphedema of both lower extremities Meningitis spinal 2019 Neurogenic bladder (06/21/13) Paraplegia (06/21/13) Spina bifida (06/21/13) Traumatic open wound of left lower leg Pt is a 72 y/o female with h/o spina bifida, paraplegia, wheelchair bound, admitted with chronic lower extremity pressure wounds, and GI consulted for acutely elevated LFTs Past Family History Family History Father Hypertension Myocardial infarction Herniated disc Mother Myocardial infarction Colorectal cancer Uterine cancer Other Family history non-contributory Past Surgical History Surgical History H/O bone graft H/O section Hx of cholecystectomy Social History Smoking Status: Never smoker Hx Alcohol Use: No Hx Substance Use: No substance use type: does not use Physical Exam Vital Signs Last Vital Signs Temp 36.8 C 12/30/22 15:12 Pulse 78 12/30/22 15:12 Resp 17 12/30/22 15:12 BP 120/74 12/30/22 15:12 Pulse Ox 94 12/30/22 15:12 O2 Del Method 12/30/22 15:12 Testing Laboratory Results 12/30/22 07:34 12/30/22 16:08 PT 12.6 Seconds (9.0-12.0) H 12/29/22 11:53 INR 1.2 (0.9-1.1) H 12/29/22 11:53 APTT 31.0 Seconds (21.0-31.0) 12/25/22 14:58 Urine Color Yellow 12/25/22 16:33 Urine Appearance Clear (Clear) 12/25/22 16:33 Urine pH 6.5 (4.5-7.5) 12/25/22 16:33 Ur Specific Barnes 1.015 (1.000-1.030) 12/25/22 16:33 Urine Protein Negative (Negative) 12/25/22 16:33 Urine Glucose (UA) Negative (Negative) 12/25/22 16:33 Urine Ketones Negative (Negative) 12/25/22 16:33 Urine Nitrite Negative (Negative) 12/25/22 16:33 Ur Leukocyte Esterase Trace (Negative) H 12/25/22 16:33 Urine WBC (Auto) 1-5 /hpf (0-5) 12/25/22 16:33 Urine RBC (Auto) 0-4 /hpf (0-4) 12/25/22 16:33 U Hyaline Cast (Auto) 0 /lpf (0-5) 12/25/22 16:33 U Epithel Cells (Auto) >30 /lpf (0-5) H 12/25/22 16:33 Urine Bacteria (Auto) Negative (Negative) 12/25/22 16:33 12/27/22 10:05 Gram Stain - Final Leg,Left Aerobic and Anaerobic Culture - Preliminary Pseudomonas aeruginosa Group B Beta Strep Bacteroides thetaiotaomicron 12/25/22 14:58 Aerobic Blood Culture - Preliminary Blood No growth in Aerobic bottle after 48 hours. Anaerobic Blood Culture - Preliminary No growth in Anaerobic bottle after 48 hours. 12/25/22 14:58 Aerobic Blood Culture - Preliminary Blood No growth in Aerobic bottle after 48 hours. Anaerobic Blood Culture - Preliminary No growth in Anaerobic bottle after 48 hours. Electrocardiogram Date: 12/25/22 DICTATED BY:Theo Roberts MD Test Reason : Blood Pressure : / mmHG Vent. Rate : 073 BPM Atrial Rate : 073 BPM P-R Int : 156 ms QRS Dur : 082 ms QT Int : 396 ms P-R-T Axes : 057 051 074 degrees QTc Int : 436 ms Normal sinus rhythm Normal ECG When compared with ECG of 18-OCT-2022 09:50, No significant change was found Confirmed by Theo Roberts ([id number]) on 12/26/2022 10:34:28 AM Chest X-Ray Date: 12/25/22 XR chest 1V portable HISTORY: 72 years-old Female Sepsis acute sepsis COMPARISON: Chest radiograph 10/26/2022 TECHNIQUE: AP view of the chest FINDINGS: Cardiomediastinal and hilar silhouettes are unchanged. No pneumothorax, pleural effusion, airspace consolidation or pulmonary edema. Unchanged left hemidiaphragmatic elevation. Bones appear grossly intact. Unchanged scoliosis of the spine. IMPRESSION: No acute proces Echocardiogram Date: 10/27/22 LV systolic function is normal. No RWMA Borderline LVH EF 60-65% compared with study of 05/16/21, no significant change.
[2022-12-30] MEDS ORDERED: SOD PHOSPHATE/SOD BIPHOSPHATE ENEMA 132 ML BTL PR ONE (20:00)
[2022-12-30] MEDS: metroNIDAZOLE 500 MG/100 ML BAG IV SCH (20:36)
[2022-12-30] MEDS: ENOXAPARIN INJ 40 MG/0.4 ML SYR SQ SCH (22:39)
[2022-12-30 23:02] LABS: Appearance Urine Clear (Clear); Bilirubin Urine Negative (Negative); Blood Urine Negative (Negative); Color Urine Yellow; Glucose Urine UA Negative (Negative); Ketones Urine Negative (Negative); Leukocyte Esterase Urine Negative (Negative); Nitrite Urine Negative (Negative); Protein Urine Negative (Negative); Specific Gravity Urine 1.017 (1.000-1.030); Urobilinogen Urine Negative (Negative)
[2022-12-31] MEDS: metroNIDAZOLE 500 MG/100 ML BAG IV SCH ×3 (02:49→18:07)
[2022-12-31] MEDS: LEVOTHYROXINE SODIUM 50 MCG TABLET PO SCH (06:35)
[2022-12-31] MEDS: POLYETHYLENE (MIRALAX) 17 GM PACK PO SCH (07:43)
[2022-12-31] MEDS: ASPIRIN 81 MG ECTAB PO SCH (07:43)
[2022-12-31] MEDS: PANTOprazole 40 MG TAB PO SCH (07:43)
[2022-12-31] MEDS: DOCUSATE SODIUM/SENNA 50/8.6MG TAB PO SCH (07:43)
[2022-12-31] MEDS: amLODIPine BESYLATE 5 MG TAB PO SCH (07:43)
[2022-12-31] MEDS: ANASTROZOLE 1 MG TAB PO SCH (07:43)
[2022-12-31 07:52] LABS: Bilirubin Direct 0.2 mg/dl (0-0.2); Bilirubin,Total 0.8 mg/dl (0.2-1.0); Calcium 8.6 mg/dl (8.5-10.1); Potassium 4.1 mmol/L (3.5-5.1)
[2022-12-31 07:58] LABS: BUN Creatinine Ratio 65.9 (10-20); Est GFR (African American) 120.5 ml/min; Est GFR (Non-African American) 103.9 ml/min
[2022-12-31 07:59] LABS: Total Protein 6.2 gm/dl (6.0-8.3)
[2022-12-31 08:26] LABS: Hematocrit (blood only) 24.9 % (37.0-47.0); Mean Corpuscular Hemoglobin 29.1 pg (25.0-34.0); Mean Corpuscular Hgb Conc 32.1 g/dL (32.0-36.0); Mean Corpuscular Volume 90.5 fL (80.0-100.0); Mean Platelet Volume 11.2 fL (9.4-12.4); Platelet Count 120 K/uL (130-400); RDW Standard Deviation 58.4 fL (36.4-46.3); Red Blood Count 2.75 M/uL (4.20-5.40); White Blood Count 5.47 K/ul (4.8-10.8)
[2022-12-31] MEDS ORDERED: SOD PHOSPHATE/SOD BIPHOSPHATE ENEMA 132 ML BTL PR STA (08:34)
--- NOTE | 2022-12-31 08:38 | Hospitalist Progress Note ---
Date of Service December 31, 2022 Assessment & Plan (1) Cellulitis: Plan: Chronic left lower extremity pressure ulceration stage IV Increased drainage/purulent for 2-3 days prior to admit w/ hypothermia requiring tomás hugger/sepsis 2nd to LLE infections Dr Baker consulted, s/p bedside debridement 12/27. Wound vac changed 12/31 Cultures w/ pseudomonas, group B strep INTIIALLY-- discussed w/ pharmacy and switched to PO Levaquin NOW WOUND cx W BACTEROIDES SPECIES >> ID CONSULT PENDING FOR TODAY. ADDED FLAGYL to ABX regimen last evening 12/30 [address]ed w/ Dr Carrillo from ID and if pt was on cefepime initially could transition to levaquin but given initially on ceftriaxone, recs for Cefepime x 5 days then can transition to PO levaquin at d/c. Continue Flagyl. Rec's for outpatient follow up ID as I discussed prior hx chronic osteo of the hip -- pa tient nontender, actually that wound overlying area looks best compared to the rest, and recs for outpt f/u and MRI of hip/pelvis (can be done sooner if she develops any pain in area) and would rec bone bx, but would need to be done once off abx. Does not feel needs done urgently given appearance on exam/no tracking/no pain currently Official consult pending WBC wnl, remains afebrile BCx NGTD, monitor IVF provided for hypernatremia/dehydration, resolved on repeat labs. No further n/v, working on bowels (neurogenic bowel/bladder) -- 2small hardened BM, additional enema following EUS/ERCP today CM alerted about need for IV abx Cefepime x 5 days if remaining inpatient vs at home if able to arrange for home IV abx Patient declined want for hospital bed/mattress at home, due for new wheelchair in summer but recs to continue cleaning to prevent continued infection. ?safety check for at home STRONGLY encouraged patient to take her medications in f/u with PCP to ensure she is taking correctly (2) Elevated LFTs: Plan: On admission, LFTs AST 44, ALP 109 on 12/25 BPs low normal 104/53 at that time w/ reported hypothermia but no significant low BPs recorded. Did look like she had decent dehydration on admit w/ BUN 44/Cr 0.71 (Cr usually in 0.42 range) and ?shock/lower BPs prior to admit possible given repeat LFTs TB 2.1, AST 1241, ALT 1114, ALP 720 on 12/29 (no checks between) ?shock, ?medication CK wnl INR w/o significant elevation TSH elevation ?infection -- appears recent adjustment in Synthroid to 50mcg per med history -- need to have f/u PCP to ensure taking appropriate dose/repeat TFT outpatient MRCP equivocal Liver US w/o ductal dilation Portal vein US patent w/o stenosis or evidence for ischemia s/p EUS w/ Dr Chidlress w/ normal appearing CBD and evidence of fatty infiltration of liver. LFTs likely related to meds. Hepatitis panel pending, CMV, EBV LFTs w/ continued improvement -- TB wnl 0.8, AST 268, ALT 525, ALP 547 Avoiding hepatotoxic agents, placed atorvastatin on hold for now Monitor LFT Q2D (3) Stage IV pressure ulcer: Plan: to LLE laterally wound consulted and following, wound vac approved and HH arranged by KRYSTINA bravo as outlined above, added flagyl 12/30 and continue. switch levaquin to cefepime x 5 days then can be on PO levaquin at d/c (4) Lymphedema: Plan: Chronic/stable, wound RN consulted and following (5) Hypothyroidism: Plan: Last TSH 3.218 in September TSH slightly elevated 5.271, Ft4 wnl ?if reactive in setting of current infection but would rec repeating in 4-6 wks/adjustment as needed patient w/ new rx in November sent for 50mcg -- patient unaware of any recent change but states she still takes this recommended she have f/u with pcp and bring her home medications to ensure taking appropriate meds as well as dosing (6) CAD (coronary artery disease): Plan: H/o HTN/CAD/HLD/CHF -- stable Continue Atorvastatin (CK not elevated, but will hold given elevated LFTs) Continue ASA, and Amlodipine (7) Severe obstructive sleep apnea: Plan: Continue cpap at HS (8) Breast cancer: Plan: apparently not candidate for mastectomy per prior notes, ?if patient refused as well Follows w/ Dr Mojica, remains on anastrazole daily Check iron panel given prior infusions, can reach out to heme/onc if needed (9) Constipation: Plan: neurogenic bowel/bladder Last BM documented 12/26, +BS on exam On miralax/senna daily at home Was given dulcolax FL x 1 on 12/29, no obstruction on KUB Started miralax/senna daily and monitor response; additional Dulcolax suppository daily if no BM +BM x 2 last evening, hard -- additional fleets enema for today given +BM w/ use 12/30 (10) Hypernatremia: Plan: resolved w/ 1L D5 12/30, push oral fluids no further IVF for now (11) Osteomyelitis: Plan: hx chronic osteo , had been following [facility] and then Dr Melton in 2019 upon review appeared had been on bactrim for chronic immunosuppresive therapy but patient poor historian discussed w/ ID as above no repeat MRI for right now but rec outpt ID f/u and once off abx, MRI pelvis as well as bone bx to be discussed repeat imaging sooner if any pain reported or worrisome appearance of skin, but appears healed over w/o any tracking to bone at present Plan continued inpatient stay ID consult pending -- to be on cefepime/flagyl -- cefepime x 5 days per discussion (alerted CM) -- to see about arranging home IV abx May require continued inpatient stay to get the cefepime otherwise if not able to arrange Admission and Anticipated Discharge Date Admission Date: December 25, 2022 Supervising Physician Co-Signing Physician Notes PA Supervision Note: I did not personally see or examine the patient today, but I verified all peterson points of OSMAR Hensley's assessment and plan with the following exceptions/additions: None Subjective seen this morning with wound RN. Assisted w/ positioning for wound vac change. Patient states doing well. No further n/v since last evening. Planning for ERCP/EUS today. Wound vac approved. She follows [facility] and Dr Mojica for her breast ca -- states she was attempting hormone therapy first and hoping to avoid any surgery rather than not being a candidate. Will need repeat mammogram at ri rescheduled. She also isn't sure when she got last Venofer transfusion. Inquired about chronic osteo R hip, she is unaware of this and not sure if she was to be on daily Bactrim. She remembers seeing someone near wound center but hasn't had f/u on this. Due for new wheelchair in April. States she doesn't think she would want hospital bed/mattress as not in bed much. Discussed ensuring cleaning her mattress. Also discussed increased Synthroid recently and she is unsure but states she is still getting this. STRONGLY encouraged patient to have f/u with PCP and have her home medications brought to appointment to make sure she is taking correct meds/doses to prevent issues/recurrent hospitalization. No fever/chills, chest pain, shortness of breath reported. Wanting to wait for after procedure for additional enema. Two hardened stools last evening. Physical Exam Physical Exam: General: WD/WN female in bed, wound RN at bedside, working on changing her wound vac, baseline spina bifida HEENT: head atraumatic, mm improved, trachea midline Resp: diminished in bases w/o w/c, on room air CV: RRR, no mrg, b/l chronic lymphedema, calves nontender to palpation (baseline neuropathy reported) GI: +BS throughout, soft, slightly distended, nontender to palpation MSK/Neuro/skin: LLE cellulitis almost resolved, wound vac to L knee crease wound vac changed w/ RN, purulant found smelling wound but healthy pink tissue underneath, drainage in canister, baseline wheelchair/spina bifida, additional R knee wound (not examined today- aquacell/adaptic) crusting/hardened skin b/l LE (discussed w/ wound RN about amlactin, to be applied) Psych: alert/oriented to person/place/time, does not recall past events regarding infectious disease providers/osteomyelitis Results & Data Results & Data ([facility]) Vital Signs (Past 12 Hours) Vital Signs Temp Pulse Resp BP Pulse Ox O2 Del Method 12/31/22 08:10 79 94 Room Air 12/31/22 07:13 36.6 C 73 16 131/73 91 Room Air 12/30/22 22:00 36.5 C 72 18 107/67 94 Room Air Laboratory Results 12/31/22 12/31/22 12/30/22 Range/Units 06:56 06:56 21:33 WBC 5.47 (4.8-10.8) K/ul RBC 2.75 L (4.20-5.40) M/uL Hgb 8.0 L (12.0-16.0) g/dl Hct 24.9 L (37.0-47.0) % MCV 90.5 (80.0-100.0) fL MCH 29.1 (25.0-34.0) pg MCHC 32.1 (32.0-36.0) g/dL RDW Std Deviation 58.4 H (36.4-46.3) fL RDW Coeff of Deanna 18.0 H (11.5-14.5) % Plt Count 120 L (130-400) K/uL MPV 11.2 (9.4-12.4) fL Immature Gran % (Auto) % Neut % (Auto) % Lymph % (Auto) % [place] % (Auto) % Eos % (Auto) % Baso % (Auto) % Neut # (Auto) (1.40-6.50) K/uL Lymph # (Auto) (1.2-3.4) K/uL [place] # (Auto) (0.11-0.59) K/uL Eos # (Auto) (0-0.50) K/uL Baso # (Auto) (0-0.2) K/uL Immature Gran # (Auto) (0.01-0.20) K/uL Sodium 141 (136-145) mmol/L Potassium 4.1 (3.5-5.1) mmol/L Chloride 107 (98-107) mmol/L Carbon Dioxide 29 (21-32) mmol/L Anion Gap 5 (3-11) BUN 27 H (6-23) mg/dl Creatinine 0.41 L (0.6-1.2) mg/dl Est Cr Clr Drug Dosing 131.0 ml/min Est GFR ( Amer) 120.5 ml/min Est GFR (Non-Af Amer) 103.9 ml/min BUN/Creatinine Ratio 65.9 H (10-20) Glucose 75 (70-99(Fasting)) mg/dl Calcium 8.6 (8.5-10.1) mg/dl Total Bilirubin 0.8 (0.2-1.0) mg/dl Direct Bilirubin 0.2 (0-0.2) mg/dl AST 268 H (13-39) U/L ALT Pending (7-52) U/L Alkaline Phosphatase 547 H (34-104) U/L Total Protein 6.2 (6.0-8.3) gm/dl Albumin 3.0 L (3.4-5.0) gm/dl Globulin (2.5-4.0) gm/dl Albumin/Globulin Ratio (0.9-2) Free T4 (0.61-1.60) ng/dl Urine Color Yellow Urine Appearance Clear (Clear) Urine pH 6.0 (4.5-7.5) Ur Specific [place] 1.017 (1.000-1.030) Urine Protein Negative (Negative) Urine Glucose (UA) Negative (Negative) Urine Ketones Negative (Negative) Urine Blood Negative (Negative) Urine Nitrite Negative (Negative) Urine Bilirubin Negative (Negative) Urine Urobilinogen Negative (Negative) Ur Leukocyte Esterase Negative (Negative) Hepatitis A IgM Ab (NON-REACTIVE) Hep Bs Antigen (NON-REACTIVE) Hep Bs Ag Confirmation Hep B Core IgM Ab (NON-REACTIVE) Hepatitis C Ab (EIA) (NON-REACTIVE) Hep C Ab Signal/Cutoff (<1.00) 12/30/22 12/30/22 12/30/22 Range/Units 16:08 07:34 07:34 WBC (4.8-10.8) K/ul RBC (4.20-5.40) M/uL Hgb (12.0-16.0) g/dl Hct (37.0-47.0) % MCV (80.0-100.0) fL MCH (25.0-34.0) pg MCHC (32.0-36.0) g/dL RDW Std Deviation (36.4-46.3) fL RDW Coeff of Deanna (11.5-14.5) % Plt Count (130-400) K/uL MPV (9.4-12.4) fL Immature Gran % (Auto) % Neut % (Auto) % Lymph % (Auto) % [place] % (Auto) % Eos % (Auto) % Baso % (Auto) % Neut # (Auto) (1.40-6.50) K/uL Lymph # (Auto) (1.2-3.4) K/uL [place] # (Auto) (0.11-0.59) K/uL Eos # (Auto) (0-0.50) K/uL Baso # (Auto) (0-0.2) K/uL Immature Gran # (Auto) (0.01-0.20) K/uL Sodium 141 (136-145) mmol/L Potassium 4.1 (3.5-5.1) mmol/L Chloride 107 (98-107) mmol/L Carbon Dioxide 30 (21-32) mmol/L Anion Gap 4 (3-11) BUN 30 H (6-23) mg/dl Creatinine 0.44 L (0.6-1.2) mg/dl Est Cr Clr Drug Dosing 122.1 ml/min Est GFR ( Amer) 117.7 ml/min Est GFR (Non-Af Amer) 101.6 ml/min BUN/Creatinine Ratio 68.2 H (10-20) Glucose 137 H (70-99(Fasting)) mg/dl Calcium 9.3 (8.5-10.1) mg/dl Total Bilirubin 1.1 H (0.2-1.0) mg/dl Direct Bilirubin (0-0.2) mg/dl AST 514 H (13-39) U/L ALT 742 H 827 H (7-52) U/L Alkaline Phosphatase 714 H (34-104) U/L Total Protein 7.1 (6.0-8.3) gm/dl Albumin 3.4 (3.4-5.0) gm/dl Globulin 3.7 (2.5-4.0) gm/dl Albumin/Globulin Ratio 0.9 (0.9-2) Free T4 1.17 (0.61-1.60) ng/dl Urine Color Urine Appearance (Clear) Urine pH (4.5-7.5) Ur Specific [place] (1.000-1.030) Urine Protein (Negative) Urine Glucose (UA) (Negative) Urine Ketones (Negative) Urine Blood (Negative) Urine Nitrite (Negative) Urine Bilirubin (Negative) Urine Urobilinogen (Negative) Ur Leukocyte Esterase (Negative) Hepatitis A IgM Ab (NON-REACTIVE) Hep Bs Antigen (NON-REACTIVE) Hep Bs Ag Confirmation Hep B Core IgM Ab (NON-REACTIVE) Hepatitis C Ab (EIA) (NON-REACTIVE) Hep C Ab Signal/Cutoff (<1.00) 12/30/22 12/29/22 Range/Units 07:34 10:44 WBC 6.23 (4.8-10.8) K/ul RBC 3.20 L (4.20-5.40) M/uL Hgb 9.4 L (12.0-16.0) g/dl Hct 29.6 L (37.0-47.0) % MCV 92.5 (80.0-100.0) fL MCH 29.4 (25.0-34.0) pg MCHC 31.8 L (32.0-36.0) g/dL RDW Std Deviation 59.9 H (36.4-46.3) fL RDW Coeff of Deanna 17.9 H (11.5-14.5) % Plt Count 139 (130-400) K/uL MPV 11.4 (9.4-12.4) fL Immature Gran % (Auto) 0.8 % Neut % (Auto) 62.2 % Lymph % (Auto) 21.3 % [place] % (Auto) 9.3 % Eos % (Auto) 5.9 % Baso % (Auto) 0.5 % Neut # (Auto) 3.87 (1.40-6.50) K/uL Lymph # (Auto) 1.33 (1.2-3.4) K/uL [place] # (Auto) 0.58 (0.11-0.59) K/uL Eos # (Auto) 0.37 (0-0.50) K/uL Baso # (Auto) 0.03 (0-0.2) K/uL Immature Gran # (Auto) 0.05 (0.01-0.20) K/uL Sodium (136-145) mmol/L Potassium (3.5-5.1) mmol/L Chloride (98-107) mmol/L Carbon Dioxide (21-32) mmol/L Anion Gap (3-11) BUN (6-23) mg/dl Creatinine (0.6-1.2) mg/dl Est Cr Clr Drug Dosing ml/min Est GFR ( Amer) ml/min Est GFR (Non-Af Amer) ml/min BUN/Creatinine Ratio (10-20) Glucose (70-99(Fasting)) mg/dl Calcium (8.5-10.1) mg/dl Total Bilirubin (0.2-1.0) mg/dl Direct Bilirubin (0-0.2) mg/dl AST (13-39) U/L ALT (7-52) U/L Alkaline Phosphatase (34-104) U/L Total Protein (6.0-8.3) gm/dl Albumin (3.4-5.0) gm/dl Globulin (2.5-4.0) gm/dl Albumin/Globulin Ratio (0.9-2) Free T4 (0.61-1.60) ng/dl Urine Color Urine Appearance (Clear) Urine pH (4.5-7.5) Ur Specific [place] (1.000-1.030) Urine Protein (Negative) Urine Glucose (UA) (Negative) Urine Ketones (Negative) Urine Blood (Negative) Urine Nitrite (Negative) Urine Bilirubin (Negative) Urine Urobilinogen (Negative) Ur Leukocyte Esterase (Negative) Hepatitis A IgM Ab NON-REACTIVE (NON-REACTIVE) Hep Bs Antigen NON-REACTIVE (NON-REACTIVE) Hep Bs Ag Confirmation TNP Hep B Core IgM Ab NON-REACTIVE (NON-REACTIVE) Hepatitis C Ab (EIA) NON-REACTIVE (NON-REACTIVE) Hep C Ab Signal/Cutoff 0.02 (<1.00) PG Care Time/CCT Total # of Minutes Spent Total Time Spent with Patient: Total time spent is greater than 50% in coordination of care (as documented) at patient's floor/unit and/or counseling patient: Coding Level of Care Code 95957 SUB INP/OBS CARE 3/50MIN Diagnoses Cellulitis L03.90 Site of cellulitis: unspecified site Elevated LFTs R79.89 Stage IV pressure ulcer L89.94 Lymphedema I89.0 Hypothyroidism E03.9 CAD (coronary artery disease) I25.10 Severe obstructive sleep apnea G47.33 Breast cancer C50.919 Constipation K59.00 Hypernatremia E87.0 Osteomyelitis M86.9 Osteomyelitis location: unspecified site Osteomyelitis type: unspecified type (1) Cellulitis Site of cellulitis: unspecified site Qualified Code(s): L03.90 - Cellulitis, unspecified (2) Osteomyelitis Osteomyelitis location: unspecified site Osteomyelitis type: unspecified type Qualified Code(s): M86.9 - Osteomyelitis, unspecified
[2022-12-31] MEDS: CHOLECALCIFEROL 1,000 UNITS 25 MCG TAB PO SCH (09:14)
--- NOTE | 2022-12-31 10:56 | History & Physical Bridge Note ---
Date of Service December 31, 2022 History & Physical Bridge Note I have examined the patient, reviewed the History & Physical and in the interval since the performance of the History & Physical I have noted the following changes of clinical significance: no changes noted. Patient has a history of elevated liver enzymes and nausea, but MRCP is inconclusive therefore we have made arrangements for upper endoscopy with endoscopic ultrasound today and ERCP should choledocholithiasis be identified. I have discussed the risks of the procedures with the patient to, infection, perforation, pain, failed patient and the need for follow-up studies.
[2022-12-31] MEDS ORDERED: LIDOCAINE 2% MPF LOCAL 5 ML VIAL INFIL ONE (11:16)
[2022-12-31] MEDS ORDERED: PROPOFOL IV EMULSION 10 MG/ML 20 ML VIAL IV ONE (11:16)
--- NOTE | 2022-12-31 11:39 | GI REPORT ---
Patient Name: Minerva Arreguin Procedure Date: 12/31/2022 11:11 AM Date of : 1950 Admit Type: Inpatient Age: 72 Gender: Female Attending MD: Fatemhe Childress DO, Procedure: Upper GI endoscopy Providers: Fatemeh Childress DO Referring MD: Susi Card Md, Fartun Frank Indications: Epigastric abdominal pain, Abdominal pain in the right upper quadrant Medicines: Monitored Anesthesia Care Complications: No immediate complications. Estimated blood loss: Minimal. Estimated Blood Loss: Estimated blood loss was minimal. Procedure: Pre-Anesthesia Assessment: - Prior to the procedure, a History and Physical was performed, and patient medications, allergies and sensitivities were reviewed. The patient's tolerance of previous anesthesia was reviewed. - The risks and benefits of the procedure and the sedation options and risks were discussed with the patient. All questions were answered and informed consent was obtained. - Patient identification and proposed procedure were verified prior to the procedure by the physician, the nurse and the community health nursing director. The procedure was verified in the procedure room. - Pre-procedure physical examination revealed no contraindications to sedation. - ASA Grade Assessment: III - A patient with severe systemic disease. - After reviewing the risks and benefits, the patient was deemed in satisfactory condition to undergo the procedure. - The anesthesia plan was to use monitored anesthesia care (MAC). - Immediately prior to administration of medications, the patient was re-assessed for adequacy to receive sedatives. - The heart rate, respiratory rate, oxygen saturations, blood pressure, adequacy of pulmonary ventilation, and response to care were monitored throughout the procedure. - The physical status of the patient was re-assessed after the procedure. After obtaining informed consent, the endoscope was passed under direct vision. Throughout the procedure, the patient's blood pressure, pulse, and oxygen saturations were monitored continuously.The upper GI endoscopy was accomplished without difficulty. The patient tolerated the procedure well. The Endoscope was introduced through the mouth, and advanced to the third part of duodenum. Findings: The examined esophagus was normal. The entire examined stomach was normal. The examined duodenum was normal. Impression: - Normal esophagus. - Normal stomach. - Normal examined duodenum. - No specimens collected. Recommendation: - Perform an upper endoscopic ultrasound (UEUS) today. Fatemeh Childress D.O. Fatemeh Childress, DO 12/31/2022 11:39:31 AM This report has been signed electronically. Note Initiated On: 12/31/2022 11:11 AM Number of Addenda: 0 I attest to the content of the Intraoperative Record and orders documented therein, exceptions below {[id number]}
[2022-12-31] MEDS ORDERED: SOD PHOSPHATE/SOD BIPHOSPHATE ENEMA 132 ML BTL PR ONE (11:59)
--- NOTE | 2022-12-31 12:03 | GI REPORT ---
Patient Name: Minerva Arreguin Procedure Date: 12/31/2022 11:13 AM Date of : 1950 Admit Type: Inpatient Age: 72 Gender: Female Attending MD: Fatemeh Childress DO, Procedure: Upper EUS Providers: Fatemeh Childress DO Referring MD: Susi Card Md, Fartun Frank Indications: Elevated liver enzymes Medicines: Monitored Anesthesia Care Complications: No immediate complications. Estimated blood loss: Minimal. Estimated Blood Loss: Estimated blood loss was minimal. Procedure: Pre-Anesthesia Assessment: - Prior to the procedure, a History and Physical was performed, and patient medications, allergies and sensitivities were reviewed. The patient's tolerance of previous anesthesia was reviewed. - The risks and benefits of the procedure and the sedation options and risks were discussed with the patient. All questions were answered and informed consent was obtained. - Patient identification and proposed procedure were verified prior to the procedure by the physician, the nurse and the dressmaker helper. The procedure was verified in the procedure room. - Pre-procedure physical examination revealed no contraindications to sedation. - ASA Grade Assessment: III - A patient with severe systemic disease. - After reviewing the risks and benefits, the patient was deemed in satisfactory condition to undergo the procedure. - The anesthesia plan was to use monitored anesthesia care (MAC). - Immediately prior to administration of medications, the patient was re-assessed for adequacy to receive sedatives. - The heart rate, respiratory rate, oxygen saturations, blood pressure, adequacy of pulmonary ventilation, and response to care were monitored throughout the procedure. - The physical status of the patient was re-assessed after the procedure. After obtaining informed consent, the endoscope was passed under direct vision. Throughout the procedure, the patient's blood pressure, pulse, and oxygen saturations were monitored continuously. The patient tolerated the procedure well. The Endosonoscope was introduced through the mouth, and advanced to the second part of duodenum. The upper EUS was technically difficult and complex due to a J-shaped stomach which made pyloric intubation difficult. Successful completion of the procedure was aided by applying abdominal pressure. Findings: ENDOSONOGRAPHIC FINDING: : Evidence of a previous cholecystectomy was identified endosonographically. There was no sign of significant endosonographic abnormality in the common bile duct. The maximum diameter of the duct was 6 mm. No masses, no stones and no biliary sludge were identified. There was abnormal echogenicity in the visualized portion of the liver. This area was hyperechoic. There was no sign of significant endosonographic abnormality in the entire pancreas. No masses, no cysts, the pancreatic duct was thin in caliber. There was no sign of significant endosonographic abnormality in the left adrenal gland. No adrenal gland enlargement was identified. Impression: - Evidence of a cholecystectomy. - There was no sign of significant pathology in the common bile duct. - There was abnormal echogenicity in the visualized portion of the liver. This was hyperechoic. Tissue has not been obtained. However, the endosonographic appearance is consistent with fatty infiltration. - There was no sign of significant pathology in the entire pancreas. - Endosonographic images of the left adrenal gland were unremarkable. - No specimens collected. Recommendation: - [facility] care. - Advance diet as tolerated. - Observe patient's clinical course following today's procedure. -Elevation of liver enzymes most likely related to one of the patient's medications. Fatemeh Childress D.O. Fatemeh Childress, 12/31/2022 12:03:19 PM This report has been signed electronically. Note Initiated On: 12/31/2022 11:13 AM Number of Addenda: 0 I attest to the content of the Intraoperative Record and orders documented therein, exceptions below {[id number]}
--- NOTE | 2022-12-31 12:04 | Communication Note ---
Date of Service: December 31, 2022 The patient underwent endoscopic ultrasound and upper endoscopy this morning. She was found to have a normal-appearing common bile duct during today's examination and evidence of fatty infiltration of the liver. The patient's liver enzyme elevation is most likely related to medication and it appears that there continues to improve. Recommendations cotinue monitoring liver enzymes every 1 to 2 days until resolution Please call with any questions or concerns, GI to sign off
--- NOTE | 2022-12-31 12:07 | Post Operative Brief Note ---
Immediate Post Op Note v1 Date of Surgery December 31, 2022 Pre & Post Diagnosis Operation Date: 12/31/22 11:25 Pre-Op Diagnosis: abdominal pain Post-Op Diagnosis: normal CBD I identified the patient and participated in the time-out.: Yes Procedure Operation Date: 12/31/22 11:25 Actual Procedures p Esophagogastroduodenoscopy - Fatemeh Childress DO p Endoscopic Ultrasonography Upper - Fatemeh Childress DO Surgeon Fatemeh Childress, Requirements Manager none Estimated Blood Loss 0 Findings Consistent with Post-Op Diagnosis
[2022-12-31] MEDS: levoFLOXacin 750 MG TAB PO SCH (12:52)
--- NOTE | 2022-12-31 13:23 | Anesthesiology Progress Note ---
Date of Service December 31, 2022 Anesthesia Post Procedure Vital Signs Vital Signs: Temp Pulse Pulse Resp BP BP Pulse Ox 12/31/22 12:56 36.4 C L 72 16 132/76 92 12/31/22 12:31 36.4 C L 75 16 120/63 94 12/31/22 12:15 77 15 130/67 92 12/31/22 12:05 36 C L 73 20 127/63 96 12/31/22 10:44 36.7 C 94 H 80 18 135/69 94 12/31/22 08:10 79 94 12/31/22 07:13 36.6 C 73 16 131/73 91 12/30/22 20:05 12/30/22 22:00 36.5 C 72 18 107/67 94 12/30/22 15:12 36.8 C 78 17 120/74 94 O2 Del Method O2 Flow Rate 12/31/22 12:56 Room Air 12/31/22 12:31 Room Air 12/31/22 12:15 Room Air 12/31/22 12:05 Oxymask 10 12/31/22 10:44 Room Air 12/31/22 08:10 Room Air 12/31/22 07:13 Room Air 12/30/22 20:05 Room Air 12/30/22 22:00 Room Air 12/30/22 15:12 Room Air Transfer of Care Handoff Completed per policy Notes Mental Status: alert / awake / arousable and participated in evaluation Nausea / Vomiting: adequately controlled Pain: adequately controlled Airway Patency, RR, SpO2: stable & adequate BP & HR: stable & adequate Hydration State: stable & adequate Anesthetic Complications: no major complications apparent and Pt Satisfied with anesthetic care
[2022-12-31] MEDS: CEFEPIME 2,000 MG in SYRINGE 0 ML IV SCH ×2 (14:09→21:05)
[2022-12-31 14:22] LABS: CMV IgM Antibody <30.00 AU/mL
--- NOTE | 2022-12-31 15:00 | Infectious Disease Consult ---
Date of Consultation December 31, 2022 Assessment & Plan (1) Elevated LFTs: (2) Stage IV pressure ulcer: Plan 72yF with a PMH of spina bifida wheel chair bound, L parietal CVA, CAD, known pressure ulcers of lower extremity with lymphedema for which she sees wound care, h/o R hip osteomyelitis in 2019, prior admission for lower extremity wound infections admitted on 12/25 for L hip wound. Infectious diseases has been consulted regarding L hip wound and h/o osteomyelitis. Patient is poor historian therefore HPI taken from EMR and d/w primary team. She was admitted in 10/12 for LE wounds and underwent debridement. 10/19 R leg wound culture growing MSSA and Corynebacterium, L leg wound culture growing MSSA and Proteus species, I Zosyn. She was treated with short duration of antibiotics. Her more distant history includes a h/o R hip osteomyelitis by imaging of pelvic MRI 03/2019, "Chronic right ischial decubitus ulcer with associated osteomyelitis of the ischial tuberosity" She was previously seen by Infectious Diseases then and placed on Bactrim for suppression. This was discontinued a number of years ago and it is unclear duration of therapy. On this admission, she had not been feeling well for a few days prior . She was noted to be hyperthermic Hypothermic to 34.1, placed on tomás hugger. Initial labs notable for LFTs AST 44, ALP 109. She was started on Vancomycin and seen by Orthopaedics. She underwent debridement of 2 pressure ulcers (L hip and R posterior leg). Hospital course complicated acute transaminitis. Liver ultrasound no biliary ductal dilatation status post cholecystectomy EGD done today shows no acute findings. PROBLEM LIST 1. Pressure ulcers, superinfected 2. Transaminitis 3. H/o R hip osteomyelitis MICRO: Hep C negative 12/27 L leg wound PSA (No resistance) Group B beta strep, Bacteroides / Blood cultures NG ABX: Ceftriaxone 12/25-12/29 Levaquin 12/29- 12/31 Cefepime 12/31- flagyl 12/31 - Discussion: Patient with h/o LE chronic wounds now s/p debridement of L hip. She carries a distant h/o R hip osteomyelitis. She chronically debilitated. She has no complaints of R hip pain or discomfort and exam shows a healed prior ulcer. I had a long conversation with her and Primary team. I suspect given her symptoms and exam that the osteomyelitis has likely resolved. I would be concerned with placing a needle for biopsy into a closed skin area given the location and risk this not healing. She should have this area re-evaluated on an outpatient bases when she is done with treatment for her L leg wound. However given no pain and closed skin I suspect that has likely resolved. Regarding his LFTs, U/s and EGD are negative, this may be d/t Ceftriaxone as numbers have improved but should be followed closely. Recommend: Cefepime 2G IV TID and Flagyl 500mg po TID x 5 days through 01/04/22 to treat superficial cellulitis of L hip s/p debridement. If there is pain or skin breakdown of R hip would further assess with MRI LFTs are improving and will be followed by primary team, If any further issues, please reconsult ID. Discussed with Primary team. Dianne Carrillo MD Infectious Diseases [facility] Consultation Information Consultation was provided via telemedicine using two-way real-time interactive telecommunication between the patient and the telemedicine provider. For the duration of the visit, the provider was performing the assessment from a different facility than the patient. This includesuse of bluetooth stethoscope forauscultationperformed by the telepresenter that the telemedicine provider can hear if described in the physical exam. [employer] contact information: Please call [facility] Call Center . (Phone Number For Physician Use Only) After establishing a telemedicine visit, patient was: Patient was verified with two unique identifiers, Patient/authorized rep acknowledged consent and understanding and Gave permission to continue telehealth session Time Spent with Patient: Initial => 55 min History of Present Illness Reason for Consultation: L hip wound, H/o R hip osteomyelitis Requesting Physician: Susi Card MD Attending Physician: Susi Card MD History of Present Illness 72yF with a PMH of spina bifida wheel chair bound, L parietal CVA, CAD, known pressure ulcers of lower extremity with lymphedema for which she sees wound care, h/o R hip osteomyelitis in 2019, prior admission for lower extremity wound infections admitted on 12/25 for L hip wound. Infectious diseases has been consulted regarding L hip wound and h/o osteomyelitis. Patient is poor historian therefore HPI taken from EMR and d/w primary team. She was admitted in 10/12 for LE wounds and underwent debridement. 10/19 R leg wound culture growing MSSA and Corynebacterium, L leg wound culture growing MSSA and Proteus species, I Zosyn. She was treated with short duration of antibiotics. Her more distant history includes a h/o R hip osteomyelitis by imaging of pelvic MRI 03/2019, "Chronic right ischial decubitus ulcer with associated osteomyelitis of the ischial tuberosity" She was previously seen by Infectious Diseases then and placed on Bactrim for suppression. This was discontinued a number of years ago and it is unclear duration of therapy. On this admission, she had not been feeling well for a few days prior . She was noted to be hyperthermic Hypothermic to 34.1, placed on tomás hugger. Initial labs notable for LFTs AST 44, ALP 109. She was started on Vancomycin and seen by Orthopaedics. She underwent debridement of 2 pressure ulcers (L hip and R posterior leg). Hospital course complicated acute transaminitis. Liver ultrasound no biliary ductal dilatation status post cholecystectomy EGD done today shows no acute findings. On my interview today, patient appears well. No complaints.She does not recall any prior issues or usp antibiotics regarding R hip. She denies any R hip pain or discomfort or lower R back pain. She also does not have much sensation in lower extremities. ROS is negative for cardiovascular, pulmonary symptoms. Allergies Allergy/AdvReac Type Severity Reaction Status Date / Time nalidixic acid Allergy Unknown Unknown Verified 12/25/22 20:00 Home Medications Medication Instructions Recorded Confirmed Type albuterol sulfate 90 mcg/actuation 2 puff inhalation DIRECTED PRN 09/21/18 12/25/22 History aerosol inhaler Shortness Of Breath Or Wheezing Oxygen Home #1 ea 05/21/21 12/23/22 Rx amlodipine 5 mg tablet (Norvasc) 5 mg PO QAM #30 tabs 05/21/21 12/25/22 Rx aspirin 81 mg tablet,delayed 81 mg PO QAM #90 tabs 05/21/21 12/25/22 Rx release atorvastatin 40 mg tablet 40 mg PO QAM #30 tabs 05/21/21 12/25/22 Rx pantoprazole 40 mg tablet,delayed 40 mg PO DAILY 10/20/21 12/25/22 History release anastrozole 1 mg tablet 1 mg PO DAILY 10/23/22 12/25/22 History levothyroxine 50 mcg tablet 50 mcg PO DAILY 10/23/22 12/25/22 History collagenase clostridium histo. 250 1 applic EXT DAILY #30 grams 11/02/22 12/25/22 Rx unit/gram topical ointment (Santyl) nystatin 100,000 unit/gram topical 1 applic EXT BID #30 grams 11/02/22 12/25/22 Rx cream ondansetron 4 mg disintegrating 4 mg PO Q6H PRN nausea #15 tabs 11/02/22 12/25/22 Rx tablet polyethylene glycol 3350 17 gram 17 g PO DAILY PRN constipation 12/09/22 12/25/22 History oral powder packet (Miralax) sennosides 8.6 mg-docusate sodium 1 tab PO DAILY 12/25/22 12/25/22 History 50 mg tablet (Senokot-S) Patient History Medical History (Updated 12/30/22 @ 19:04 by Franklyn Traylor MD) CAD (coronary artery disease) Cellulitis Elevated LFTs Heart failure Hiatal hernia History of CVA (cerebrovascular accident) Hypertension Hypothyroidism Lymphedema of both lower extremities Meningitis spinal 2019 Neurogenic bladder (06/21/13) Paraplegia (06/21/13) Spina bifida (06/21/13) Traumatic open wound of left lower leg Surgical History H/O bone graft H/O section Hx of cholecystectomy Family History Father Hypertension Myocardial infarction Herniated disc Mother Myocardial infarction Colorectal cancer Uterine cancer Other Family history non-contributory Social History Smoking Status: Never smoker Second Hand Exposure: No; Hx Alcohol Use: No Hx Substance Use: No Preferred Language: Bahamian Communication Ability: Effective Visual Impairment: Limited Hearing Ability: Normal Qa Test Analyst Required: No Beliefs That Will Affect Care: None marital status: Current Living Situation: Spouse current occupational status: retired How many Children do You have: 2 Other Information That Helps Us Care for You: No Feels Safe at Home: Yes Safety Concerns: Feels Safe At This Time caffeine: Yes (tea) during the past year weight has: increased > 10 lbs Physical Activity Frequency: Does not Exercise Do you think of yourself as: straight/heterosexual Gender Identity: Female Assistive Devices: CPAP, Glasses, Mechanical Lift, Oxygen - at Night, Scoo ter/Electric Scooter and Wheelchair Physical Exam Physical Exam: obese NAD L hip with wound vac on, media reviewed R hip well healing wound, no tracking or fistula R posterior leg with packing Large LE with multiple folds Results & Data ([facility]) Vital Signs (Past 12 Hours) Vital Signs Temp Pulse Pulse Resp BP Pulse Ox O2 Del Method 12/31/22 14:53 95 Room Air 12/31/22 14:51 36.5 C 73 16 105/63 93 Room Air 12/31/22 12:56 36.4 C L 72 16 132/76 92 Room Air 12/31/22 12:31 36.4 C L 75 16 120/63 94 Room Air 12/31/22 12:15 77 15 130/67 92 Room Air 12/31/22 12:05 36 C L 73 20 127/63 96 Oxymask 12/31/22 10:44 36.7 C 94 H 80 18 135/69 94 Room Air 12/31/22 08:10 79 94 Room Air 12/31/22 07:13 36.6 C 73 16 131/73 91 Room Air O2 Flow Rate 12/31/22 14:53 12/31/22 14:51 12/31/22 12:56 12/31/22 12:31 12/31/22 12:15 12/31/22 12:05 10 12/31/22 10:44 12/31/22 08:10 12/31/22 07:13 Laboratory Results Laboratory Results - last 48 hr 12/29/22 12/29/22 12/30/22 08:49 10:44 07:34 WBC 6.23 RBC 3.20 L Hgb 9.4 L Hct 29.6 L MCV 92.5 MCH 29.4 MCHC 31.8 L RDW Std Deviation 59.9 H RDW Coeff of Deanna 17.9 H Plt Count 139 MPV 11.4 Immature Gran % (Auto) 0.8 Neut % (Auto) 62.2 Lymph % (Auto) 21.3 [place] % (Auto) 9.3 Eos % (Auto) 5.9 Baso % (Auto) 0.5 Neut # (Auto) 3.87 Lymph # (Auto) 1.33 [place] # (Auto) 0.58 Eos # (Auto) 0.37 Baso # (Auto) 0.03 Immature Gran # (Auto) 0.05 Sodium Potassium Chloride Carbon Dioxide Anion Gap BUN Creatinine Est Cr Clr Drug Dosing Est GFR ( Amer) Est GFR (Non-Af Amer) BUN/Creatinine Ratio Glucose Calcium Iron TIBC Unsaturated IBC Transferrin % Sat Ferritin Total Bilirubin Direct Bilirubin AST ALT Alkaline Phosphatase Total Protein Albumin Globulin Albumin/Globulin Ratio TSH Free T4 Urine Color Urine Appearance Urine pH Ur Specific [place] Urine Protein Urine Glucose (UA) Urine Ketones Urine Blood Urine Nitrite Urine Bilirubin Urine Urobilinogen Ur Leukocyte Esterase CMV IgM Ab <30.00 EBV Capsid Ag IgM Ab <36.00 Hepatitis A IgM Ab NON-REACTIVE Hep Bs Antigen NON-REACTIVE Hep Bs Ag Confirmation TNP Hep B Core IgM Ab NON-REACTIVE Hepatitis C Ab (EIA) NON-REACTIVE Hep C Ab Signal/Cutoff 0.02 12/30/22 12/30/22 12/30/22 07:34 07:34 16:08 WBC RBC Hgb Hct MCV MCH MCHC RDW Std Deviation RDW Coeff of Deanna Plt Count MPV Immature Gran % (Auto) Neut % (Auto) Lymph % (Auto) [place] % (Auto) Eos % (Auto) Baso % (Auto) Neut # (Auto) Lymph # (Auto) [place] # (Auto) Eos # (Auto) Baso # (Auto) Immature Gran # (Auto) Sodium 148 H 141 Potassium 4.2 4.1 Chloride 112 H 107 Carbon Dioxide 29 30 Anion Gap 7 4 BUN 28 H 30 H Creatinine 0.42 L 0.44 L Est Cr Clr Drug Dosing 127.9 122.1 Est GFR ( Amer) 119.5 117.7 Est GFR (Non-Af Amer) 103.1 101.6 BUN/Creatinine Ratio 66.7 H 68.2 H Glucose 77 137 H Calcium 9.4 9.3 Iron TIBC Unsaturated IBC Transferrin % Sat Ferritin Total Bilirubin 1.5 H 1.1 H Direct Bilirubin 0.4 H AST 635 H 514 H ALT 827 H 742 H Alkaline Phosphatase 703 H 714 H Total Protein 7.0 7.1 Albumin 3.4 3.4 Globulin 3.7 Albumin/Globulin Ratio 0.9 TSH 5.271 H Free T4 1.17 Urine Color Urine Appearance Urine pH Ur Specific [place] Urine Protein Urine Glucose (UA) Urine Ketones Urine Blood Urine Nitrite Urine Bilirubin Urine Urobilinogen Ur Leukocyte Esterase CMV IgM Ab EBV Capsid Ag IgM Ab Hepatitis A IgM Ab Hep Bs Antigen Hep Bs Ag Confirmation Hep B Core IgM Ab Hepatitis C Ab (EIA) Hep C Ab Signal/Cutoff 12/30/22 12/31/22 12/31/22 21:33 06:56 06:56 WBC 5.47 RBC 2.75 L Hgb 8.0 L Hct 24.9 L MCV 90.5 MCH 29.1 MCHC 32.1 RDW Std Deviation 58.4 H RDW Coeff of Deanna 18.0 H Plt Count 120 L MPV 11.2 Immature Gran % (Auto) Neut % (Auto) Lymph % (Auto) [place] % (Auto) Eos % (Auto) Baso % (Auto) Neut # (Auto) Lymph # (Auto) [place] # (Auto) Eos # (Auto) Baso # (Auto) Immature Gran # (Auto) Sodium 141 Potassium 4.1 Chloride 107 Carbon Dioxide 29 Anion Gap 5 BUN 27 H Creatinine 0.41 L Est Cr Clr Drug Dosing 131.0 Est GFR ( Amer) 120.5 Est GFR (Non-Af Amer) 103.9 BUN/Creatinine Ratio 65.9 H Glucose 75 Calcium 8.6 Iron TIBC Unsaturated IBC Transferrin % Sat Ferritin Total Bilirubin 0.8 Direct Bilirubin 0.2 AST 268 H ALT 525 H Alkaline Phosphatase 547 H Total Protein 6.2 Albumin 3.0 L Globulin Albumin/Globulin Ratio TSH Free T4 Urine Color Yellow Urine Appearance Clear Urine pH 6.0 Ur Specific [place] 1.017 Urine Protein Negative Urine Glucose (UA) Negative Urine Ketones Negative Urine Blood Negative Urine Nitrite Negative Urine Bilirubin Negative Urine Urobilinogen Negative Ur Leukocyte Esterase Negative CMV IgM Ab EBV Capsid Ag IgM Ab Hepatitis A IgM Ab Hep Bs Antigen Hep Bs Ag Confirmation Hep B Core IgM Ab Hepatitis C Ab (EIA) Hep C Ab Signal/Cutoff 12/31/22 06:56 WBC RBC Hgb Hct MCV MCH MCHC RDW Std Deviation RDW Coeff of Deanna Plt Count MPV Immature Gran % (Auto) Neut % (Auto) Lymph % (Auto) [place] % (Auto) Eos % (Auto) Baso % (Auto) Neut # (Auto) Lymph # (Auto) [place] # (Auto) Eos # (Auto) Baso # (Auto) Immature Gran # (Auto) Sodium Potassium Chloride Carbon Dioxide Anion Gap BUN Creatinine Est Cr Clr Drug Dosing Est GFR ( Amer) Est GFR (Non-Af Amer) BUN/Creatinine Ratio Glucose Calcium Iron 59 TIBC 278 Unsaturated IBC 219 Transferrin % Sat 21 Ferritin 144.0 Total Bilirubin Direct Bilirubin AST ALT Alkaline Phosphatase Total Protein Albumin Globulin Albumin/Globulin Ratio TSH Free T4 Urine Color Urine Appearance Urine pH Ur Specific [place] Urine Protein Urine Glucose (UA) Urine Ketones Urine Blood Urine Nitrite Urine Bilirubin Urine Urobilinogen Ur Leukocyte Esterase CMV IgM Ab EBV Capsid Ag IgM Ab Hepatitis A IgM Ab Hep Bs Antigen Hep Bs Ag Confirmation Hep B Core IgM Ab Hepatitis C Ab (EIA) Hep C Ab Signal/Cutoff Microbiology 12/30/22 21:33 Urine,Clean Catch Urine Culture - Preliminary No growth - Less than 1,000 colonies/mL, Final report to follow. 12/27/22 10:05 Leg,Left Gram Stain - Final 12/27/22 10:05 Leg,Left Aerobic and Anaerobic Culture - Preliminary Pseudomonas aeruginosa Group B Beta Strep Bacteroides thetaiotaomicron 12/25/22 14:58 Blood Aerobic Blood Culture - Final No growth in Aerobic bottle after 5 days. 12/25/22 14:58 Blood Anaerobic Blood Culture - Final No growth in Anaerobic bottle after 5 days. 12/25/22 14:58 Blood Aerobic Blood Culture - Final No growth in Aerobic bottle after 5 days. 12/25/22 14:58 Blood Anaerobic Blood Culture - Final No growth in Anaerobic bottle after 5 days. Medications Administered Current Inpatient Medications Albuterol (Albuterol Hfa 8 Gm Inhaler) 2 puffs INH DAILY PRN PRN Reason: Shortness Of Breath Or Wheezin Stop: 01/24/23 21:30 Amlodipine Besylate (Amlodipine Besylate 5 Mg Tab) 5 mg PO QAM [facility] Stop: 01/25/23 08:59 Last Admin: 12/31/22 07:43 Dose: 5 mg Anastrozole (Anastrozole 1 Mg Tab) 1 mg PO DAILY [facility] Stop: 01/25/23 08:59 Last Admin: 12/31/22 07:43 Dose: 1 mg Aspirin (Aspirin 81 Mg Ectab) 81 mg PO QAM [facility] Stop: 01/25/23 08:59 Last Admin: 12/31/22 07:43 Dose: 81 mg Bisacodyl (Bisacodyl 10 Mg Supp) 10 mg [place] DAILY PRN PRN Reason: Constipation Stop: 01/29/23 15:03 Enoxaparin Sodium (Enoxaparin Inj 40 Mg/0.4 Ml Syr) 40 mg SQ BID [facility] Stop: 01/29/23 18:59 Last Admin: 12/30/22 22:39 Dose: Not Given Metronidazole (Flagyl) 500 mg in 100 mls @ 100 mls/hr IV Q8H [facility]; Protocol Stop: 01/06/23 18:59 Last Infusion: 12/31/22 14:09 Dose: Infused Cefepime HCl 2,000 mg/ Syringe 20 mls @ 5 mls/min IV TID [facility]; Protocol Stop: 01/07/23 13:59 Last Admin: 12/31/22 14:09 Dose: 5 mls/min Levothyroxine Sodium (Levothyroxine Sodium 50 Mcg Tablet) 50 mcg PO DAILYBB [facility] Stop: 01/25/23 06:29 Last Admin: 12/31/22 06:35 Dose: 50 mcg Ondansetron HCl (Ondansetron Inj 2 Mg/Ml 2 Ml Vial) 4 mg IV Q6H PRN PRN Reason: Nausea And Vomiting Stop: 01/25/23 23:20 Last Admin: 12/30/22 18:10 Dose: 4 mg Pantoprazole Sodium (Pantoprazole 40 Mg Tab) 40 mg PO DAILY [facility] Stop: 01/25/23 08:59 Last Admin: 12/31/22 07:43 Dose: 40 mg Polyethylene Glycol (Polyethylene (Miralax) 17 Gm Pack) 17 gm PO DAILY [facility] Stop: 01/29/23 12:59 Last Admin: 12/31/22 07:43 Dose: 17 gm Senna/Docusate Sodium (Docusate Sodium/Senna 50/8.6mg Tab) 1 tab PO QAM [facility] Stop: 01/29/23 12:59 Last Admin: 12/31/22 07:43 Dose: 1 tab Vitamin D (Cholecalciferol 1,000 Units 25 Mcg Tab) 1,000 units PO QAM [facility] Stop: 01/30/23 08:59 Last Admin: 12/31/22 09:14 Dose: 1,000 units
[2022-12-31] MEDS: ENOXAPARIN INJ 40 MG/0.4 ML SYR SQ SCH (21:05)
[2023-01-01] MEDS: metroNIDAZOLE 500 MG/100 ML BAG IV SCH ×2 (02:23→10:26)
[2023-01-01] MEDS: ANASTROZOLE 1 MG TAB PO SCH (07:52)
[2023-01-01] MEDS: PANTOprazole 40 MG TAB PO SCH (07:52)
[2023-01-01] MEDS: CHOLECALCIFEROL 1,000 UNITS 25 MCG TAB PO SCH (07:52)
[2023-01-01] MEDS: DOCUSATE SODIUM/SENNA 50/8.6MG TAB PO SCH (07:53)
[2023-01-01] MEDS: amLODIPine BESYLATE 5 MG TAB PO SCH (07:53)
[2023-01-01] MEDS: ASPIRIN 81 MG ECTAB PO SCH (07:53)
[2023-01-01] MEDS: CEFEPIME 2,000 MG in SYRINGE 0 ML IV SCH ×3 (07:53→21:24)
[2023-01-01] MEDS: LEVOTHYROXINE SODIUM 50 MCG TABLET PO SCH (07:53)
[2023-01-01] MEDS: ENOXAPARIN INJ 40 MG/0.4 ML SYR SQ SCH ×2 (07:54→21:24)
[2023-01-01] MEDS: POLYETHYLENE (MIRALAX) 17 GM PACK PO SCH (07:54)
--- NOTE | 2023-01-01 08:24 | Hospitalist Progress Note ---
Date of Service January 01, 2023 Assessment & Plan (1) Cellulitis: Plan: Chronic left lower extremity pressure ulceration stage IV Increased drainage/purulent for 2-3 days prior to admit w/ hypothermia requiring tomás hugger/sepsis 2nd to LLE infections Dr Baker consulted, s/p bedside debridement 12/27. Wound vac changed 12/31 Cultures w/ pseudomonas, group B strep INITIALLY and switched to Levaquin but then grew bacteroides species 12/30 and added Flagyl and consulted ID Discussed w/ Dr Carrillo -- see official consult. Recs Cefepime IV through 01/04 w/ PO Flagyl (converted to PO today) -- will confirm any need for additional PO Levaquin following 5 day course of cefepime as thought she initially had said to finish w/ PO but may be able to stop after IV completed? * Discussed prior hx chronic osteo of the hip -- patient nontender, actually that wound overlying area looks best compared to the rest, and recs for outpt f/u and MRI of hip/pelvis (can be done sooner if she develops any pain in area) and would rec bone bx, but would need to be done once off abx. Does not feel needs done urgently given appearance on exam/no tracking/no pain currently * NEEDING LOCAL OUTPT ID F/U -- photoengraving etcher assisting and to confirm on Tuesday. Stated could get in week of , confirmed ok w/ ID on consult WBC wnl, remains afebrile BCx NGTD, monitor CM alerted about need for IV abx Cefepime x 5 days and home IV abx being arranged, hopefully will be arranged for Tuesday and patient has done this at home before apparently Patient declined want for hospital bed/mattress at home, due for new wheelchair in summer but recs to continue cleaning to prevent continued infection. ?safety check for at home STRONGLY encouraged patient to take her medications in f/u with PCP to ensure she is taking correctly (RN noted patient stating she wanted to take her Synthroid w/ her 9am like she takes at home -- DID STRESS importance of taking on emptry stomach w/ her and in room for effectiveness and will continue current dose) (2) Elevated LFTs: Plan: On admission, LFTs AST 44, ALP 109 on 12/25 BPs low normal 104/53 at that time w/ reported hypothermia but no significant l ow BPs recorded. Did look like she had decent dehydration on admit w/ BUN 44/Cr 0.71 (Cr usually in 0.42 range) and ?shock/lower BPs prior to admit possible given repeat LFTs TB 2.1, AST 1241, ALT 1114, ALP 720 on 12/29 but no values between admission for comparison ?shock (was BP lower than we have recorded [employer]), ?medication (ceftriaxone, has been improving since this was stopped) CK wnl INR w/o significant elevation Hepatitis panel negative, CMV/EBV negative TSH elevation ?infection -- appears recent adjustment in Synthroid to 50mcg per med history -- need to have f/u PCP to ensure taking appropriate dose/repeat TFT outpatient and as discussed she WAS TAKING W REST OF HER MEDS MRCP equivocal Liver US w/o ductal dilation Portal vein US patent w/o stenosis or evidence for ischemia s/p EUS w/ Dr Childress w/ normal appearing CBD and evidence of fatty infiltration of liver --> LFTs likely related to meds. TB remains normal, AST 268--> 145, ALT 525--> 397, ALP 547 up to 567 (hepatic congestion? no further IVF, tolerating PO w/o issue reported) Avoiding hepatotoxic agents, continue to hold atorvastatin Monitor LFTs (3) Stage IV pressure ulcer: Plan: to LLE laterally wound consulted, orthopedics. s/p debridement abx as above, HH at d/c and wound care in follow up (4) Lymphedema: Plan: Chronic/stable, wound RN consulted and following Added amlactin to thickened skin as discussed w/ wound RN 12/31 but had forgotten to order. would monitor/continue at d/c if effective (5) Hypothyroidism: Plan: Last TSH 3.218 in September TSH slightly elevated 5.271, Ft4 wnl *Patient taking incorrectly w/ rest of AM meds as above --> strongly encouraged taking on empty stomach (and to confirm she is on correct 50mcg dosing w/ PCP) and repeat TFT in 4-6 wks outpatient to ensure normalized (6) CAD (coronary artery disease): Plan: H/o HTN/CAD/HLD/CHF Holding Atorvastatin (CK not elevated, but will hold given elevated LFTs) Continues on ASA, and Amlodipine No CP reported Holding further IVF as good PO intake, ALP elevation ?hepatic congestion from volume. Volume status is difficult to assess given chronic lymphedema but no SOB reported and remains on RA, 96% (7) Severe obstructive sleep apnea: Plan: Continue cpap at HS (8) Breast cancer: Plan: apparently not candidate for mastectomy per prior notes however patient stated she was hopeful to have f/u in January and consideration for lumpectomy. They thought putting her under for anesthesia for positioning may be too much (tolerated anesthesia great for EUS while inpatient) and strongly encouraged patient f/u and repeat mammogram after discharge w/ Heme/onc f/u in January for continued discussions Follows w/ Dr Mojica locally but [facility] [place] for continued f/u for consideration surgery Remains on anastrazole daily checked iron panel given prior transfusions -- acute on chronic, no need for Venfoer (9) Constipation: Plan: neurogenic bowel/bladder Prior BM documented 12/26, +BS on exam, On miralax/senna daily at home Was given dulcolax [place] x 1 on 12/29, no obstruction on KUB Started miralax/senna daily, dulcolax supp if no BM 2 hardened BM reported, additional agent for today and monitor (10) Hypernatremia: Plan: resolved w/ 1L D5 12/30, pushing oral fluids without issue Remains stable on repeat, no further IVF (11) Osteomyelitis: Plan: hx chronic osteo , had been following [facility] and then Dr Melton in 2018 upon review appeared had been on bactrim for chronic immunosuppresive therapy but patient poor historian discussed w/ ID as above no repeat MRI for right now but rec outpt ID f/u and once off abx, MRI pelvis as well as bone bx to be discussed repeat imaging sooner if any pain reported or worrisome appearance of skin, but appears healed over w/o any tracking to bone at present Plan continued inpatient stay on abx, CM working on arranging IV abx for at discharge will need outpt f/u ID-- nurse navigator to f/u on Tuesday Admission and Anticipated Discharge Date Admission Date: December 25, 2022 Supervising Physician Co-Signing Physician Notes PA Supervision Note: I did not personally see or examine the patient today, but I verified all peterson points of OSMAR Hensley's assessment and plan with the following exceptions/additions: None Subjective eval this morning, at bedside. feeling alright, no further nausea or vomiting since back on IV abx. To remain inpatient until Tuesday and dc w/ IV abx through tuesday. working on arranging home health infusion IV as well as infectious disease follow up wound vac approved. discussed synthroid use and appropriate use small hardened BM yesterday, additional enema for today to assist w/ BMs at bedside questions addressed at this time Physical Exam Physical Exam: General: WD/WN female in bed, at bedside, NAD, baseline spina bifida HEENT: head atraumatic, mm improved, trachea midline Resp: improved effort, slightly diminished in bases w/o w/c, on room air CV: RRR, no mrg, b/l chronic lymphedema, calves nontender to palpation (baseline neuropathy reported) GI: +BS throughout, soft, slightly distended but nontender to palpation MSK/Neuro/skin: LLE cellulitis improved, wound vac in place and functioning, additional wound to R posterior knee w/ aquacell/adaptic /hardened skin b/l LE (discussed w/ wound RN about amlactin, to be applied but had nt been ordered) Psych: alert/oriented to person/place/time Results & Data Results & Data ([facility]) Vital Signs (Past 12 Hours) Vital Signs Temp Pulse Resp BP BP Pulse Ox O2 Del Method 01/01/23 07:16 36.6 C 75 18 137/76 96 Room Air 12/31/22 22:52 36.6 C 75 18 115/70 97 Room Air Laboratory Results 01/01/23 01/01/23 01/01/23 Range/Units 09:10 09:10 09:10 WBC 7.27 (4.8-10.8) K/ul RBC 3.05 L (4.20-5.40) M/uL Hgb 8.9 L (12.0-16.0) g/dl Hct 27.6 L (37.0-47.0) % MCV 90.5 (80.0-100.0) fL MCH 29.2 (25.0-34.0) pg MCHC 32.2 (32.0-36.0) g/dL RDW Std Deviation 56.6 H (36.4-46.3) fL RDW Coeff of Deanna 17.7 H (11.5-14.5) % Plt Count 172 (130-400) K/uL MPV 11.2 (9.4-12.4) fL Immature Gran % (Auto) 0.4 % Neut % (Auto) 66.6 % Lymph % (Auto) 20.1 % [place] % (Auto) 7.8 % Eos % (Auto) 4.5 % Baso % (Auto) 0.6 % Neut # (Auto) 4.84 (1.40-6.50) K/uL Lymph # (Auto) 1.46 (1.2-3.4) K/uL [place] # (Auto) 0.57 (0.11-0.59) K/uL Eos # (Auto) 0.33 (0-0.50) K/uL Baso # (Auto) 0.04 (0-0.2) K/uL Immature Gran # (Auto) 0.03 (0.01-0.20) K/uL PT 11.8 (9.0-12.0) Seconds INR 1.1 (0.9-1.1) Sodium 141 (136-145) mmol/L Potassium 4.0 (3.5-5.1) mmol/L Chloride 105 (98-107) mmol/L Carbon Dioxide 30 (21-32) mmol/L Anion Gap 6 (3-11) BUN 27 H (6-23) mg/dl Creatinine 0.51 L (0.6-1.2) mg/dl Est Cr Clr Drug Dosing 105.3 ml/min Est GFR ( Amer) 112.1 ml/min Est GFR (Non-Af Amer) 96.7 ml/min BUN/Creatinine Ratio 52.9 H (10-20) Glucose 100 H (70-99(Fasting)) mg/dl Calcium 9.4 (8.5-10.1) mg/dl Total Bilirubin 0.8 (0.2-1.0) mg/dl AST 145 H (13-39) U/L ALT 397 H (7-52) U/L Alkaline Phosphatase 567 H (34-104) U/L Total Protein 7.3 (6.0-8.3) gm/dl Albumin 3.4 (3.4-5.0) gm/dl Globulin 3.9 (2.5-4.0) gm/dl Albumin/Globulin Ratio 0.9 (0.9-2) CMV IgM Ab AU/mL EBV Capsid Ag IgM Ab U/mL 12/29/22 Range/Units 08:49 WBC (4.8-10.8) K/ul RBC (4.20-5.40) M/uL Hgb (12.0-16.0) g/dl Hct (37.0-47.0) % MCV (80.0-100.0) fL MCH (25.0-34.0) pg MCHC (32.0-36.0) g/dL RDW Std Deviation (36.4-46.3) fL RDW Coeff of Deanna (11.5-14.5) % Plt Count (130-400) K/uL MPV (9.4-12.4) fL Immature Gran % (Auto) % Neut % (Auto) % Lymph % (Auto) % [place] % (Auto) % Eos % (Auto) % Baso % (Auto) % Neut # (Auto) (1.40-6.50) K/uL Lymph # (Auto) (1.2-3.4) K/uL [place] # (Auto) (0.11-0.59) K/uL Eos # (Auto) (0-0.50) K/uL Baso # (Auto) (0-0.2) K/uL Immature Gran # (Auto) (0.01-0.20) K/uL PT (9.0-12.0) Seconds INR (0.9-1.1) Sodium (136-145) mmol/L Potassium (3.5-5.1) mmol/L Chloride (98-107) mmol/L Carbon Dioxide (21-32) mmol/L Anion Gap (3-11) BUN (6-23) mg/dl Creatinine (0.6-1.2) mg/dl Est Cr Clr Drug Dosing ml/min Est GFR ( Amer) ml/min Est GFR (Non-Af Amer) ml/min BUN/Creatinine Ratio (10-20) Glucose (70-99(Fasting)) mg/dl Calcium (8.5-10.1) mg/dl Total Bilirubin (0.2-1.0) mg/dl AST (13-39) U/L ALT (7-52) U/L Alkaline Phosphatase (34-104) U/L Total Protein (6.0-8.3) gm/dl Albumin (3.4-5.0) gm/dl Globulin (2.5-4.0) gm/dl Albumin/Globulin Ratio (0.9-2) CMV IgM Ab <30.00 AU/mL EBV Capsid Ag IgM Ab <36.00 U/mL PG Care Time/CCT Total # of Minutes Spent Total Time Spent with Patient: Total time spent is greater than 50% in coordination of care (as documented) at patient's floor/unit and/or counseling patient: Coding Level of Care Code 54250 SUB INP/OBS CARE 350MIN Diagnoses Cellulitis L03.90 Site of cellulitis: unspecified site Elevated LFTs R79.89 Stage IV pressure ulcer L89.94 Lymphedema I89.0 Hypothyroidism E03.9 CAD (coronary artery disease) I25.10 Severe obstructive sleep apnea G47.33 Breast cancer C50.919 Constipation K59.00 Hypernatremia E87.0 Osteomyelitis M86.9 Osteomyelitis location: unspecified site Osteomyelitis type: unspecified type (1) Cellulitis Site of cellulitis: unspecified site Qualified Code(s): L03.90 - Cellulitis, unspecified (2) Osteomyelitis Osteomyelitis location: unspecified site Osteomyelitis type: unspecified type Qualified Code(s): M86.9 - Osteomyelitis, unspecified
[2023-01-01 09:34] LABS: Basophils # (auto) 0.04 K/uL (0-0.2); Basophils % (auto) 0.6 %; Eosinophils # (auto) 0.33 K/uL (0-0.50); Eosinophils % (auto) 4.5 %; Hematocrit (blood only) 27.6 % (37.0-47.0); Hemoglobin 8.9 g/dl (12.0-16.0); Immature Granulocytes # (auto) 0.03 K/uL (0.01-0.20); Immature Granulocytes % (auto) 0.4 %; Lymphocytes # (auto) 1.46 K/uL (1.2-3.4); Lymphocytes % (auto) 20.1 %; Mean Corpuscular Hemoglobin 29.2 pg (25.0-34.0); Mean Corpuscular Hgb Conc 32.2 g/dL (32.0-36.0); Mean Corpuscular Volume 90.5 fL (80.0-100.0); Mean Platelet Volume 11.2 fL (9.4-12.4); Monocytes # (auto) 0.57 K/uL (0.11-0.59); Monocytes % (auto) 7.8 %; Neutrophils # (auto) 4.84 K/uL (1.40-6.50); Neutrophils % (auto) 66.6 %; Platelet Count 172 K/uL (130-400); RDW Coefficient of Variation 17.7 % (11.5-14.5); RDW Standard Deviation 56.6 fL (36.4-46.3); Red Blood Count 3.05 M/uL (4.20-5.40); White Blood Count 7.27 K/ul (4.8-10.8)
[2023-01-01 09:42] LABS: Albumin Globulin Ratio 0.9 (0.9-2); Albumin Level 3.4 gm/dl (3.4-5.0); BUN Creatinine Ratio 52.9 (10-20); Bilirubin,Total 0.8 mg/dl (0.2-1.0); Calcium 9.4 mg/dl (8.5-10.1); Creatinine Clr Calc Pharmacy 105.3 ml/min; Est GFR (African American) 112.1 ml/min; Est GFR (Non-African American) 96.7 ml/min; Globulin 3.9 gm/dl (2.5-4.0); Total Protein 7.3 gm/dl (6.0-8.3)
[2023-01-01 10:09] LABS: INR 1.1 (0.9-1.1); Prothrombin Time 11.8 Seconds (9.0-12.0)
[2023-01-01] MEDS ORDERED: MINERAL OIL ENEMA 133 ML BTL PR ONE (10:37)
[2023-01-01] MEDS: metroNIDAZOLE 500 MG TAB PO SCH (17:04)
[2023-01-02] MEDS: metroNIDAZOLE 500 MG TAB PO SCH ×3 (03:20→17:02)
[2023-01-02] MEDS: LEVOTHYROXINE SODIUM 50 MCG TABLET PO SCH (06:14)
[2023-01-02] MEDS: amLODIPine BESYLATE 5 MG TAB PO SCH (07:41)
[2023-01-02] MEDS: PANTOprazole 40 MG TAB PO SCH (07:42)
[2023-01-02] MEDS: CHOLECALCIFEROL 1,000 UNITS 25 MCG TAB PO SCH (07:42)
[2023-01-02] MEDS: DOCUSATE SODIUM/SENNA 50/8.6MG TAB PO SCH (07:42)
[2023-01-02] MEDS: ANASTROZOLE 1 MG TAB PO SCH (07:42)
[2023-01-02] MEDS: ASPIRIN 81 MG ECTAB PO SCH (07:42)
[2023-01-02] MEDS: POLYETHYLENE (MIRALAX) 17 GM PACK PO SCH (07:43)
[2023-01-02] MEDS: ENOXAPARIN INJ 40 MG/0.4 ML SYR SQ SCH ×2 (07:43→20:40)
[2023-01-02] MEDS: CEFEPIME 2,000 MG in SYRINGE 0 ML IV SCH ×3 (07:55→20:53)
--- NOTE | 2023-01-02 08:13 | Hospitalist Progress Note ---
Date of Service January 02, 2023 Assessment & Plan (1) Cellulitis: Plan: Chronic left lower extremity pressure ulceration stage IV w/ increased drainage/purulent for 2-3 days prior to admit w/ hypothermia requiring tomás hugger/sepsis 2nd to LLE infections Dr Baker consulted, s/p bedside debridement 12/27. Wound vac changed 12/31 and will need changed tomorrow 01/03 Cultures w/ pseudomonas, group B strep INITIALLY and switched to Levaquin but then grew bacteroides species 12/30 and added Flagyl and consulted ID Discussed w/ Dr Carrillo -- see official consult. Recs Cefepime IV through 01/04 w/ PO Flagyl. Confirmed w/ Dr Carrillo patient can be done w/ abx after completed on 01/04 (typically tx 7 days s/p debridement) Discussed prior hx chronic osteo of the hip -- patient nontender, actually that wound overlying area looks best compared to the rest, and recs for outpt f/u and MRI of hip/pelvis (can be done sooner if she develops any pain in area) and would rec bone bx, but would need to be done once off abx. Does not feel needs done urgently given appearance on exam/no tracking/no pain currently NEEDING LOCAL OUTPT ID F/U -- unattended ground sensor specialist assisting and to confirm on Tuesday. Stated could get in week of , confirmed ok w/ ID on consult WBC wnl, remains afebrile BCx NGTD, monitor CM alerted about need for IV abx Cefepime x 5 days and home IV abx being arranged, hopefully will be arranged for Tuesday and patient has done this at home before apparently Patient declined want for hospital bed/mattress at home, due for new wheelchair in summer but recs to continue cleaning to prevent continued infection. ?safety check for at home STRONGLY encouraged patient to take her medications in f/u with PCP to ensure she is taking correctly (RN noted patient stating she wanted to take her Synthroid w/ her 9am like she takes at home -- DID STRESS importance of taking on emptry stomach w/ her and in room for effectiveness and will continue current dose) (2) Elevated LFTs: Plan: On admission, LFTs AST 44, ALP 109 on 12/25 BPs low normal 104/53 at that time w/ reported hypothermia but no significant low BPs recorded. Did look like she had decent dehydration on admit w/ BUN 44/Cr 0.71 (Cr usually in 0.42 range) and ?shock/lower BPs prior to admit possible given repeat LFTs TB 2.1, AST 1241, ALT 1114, ALP 720 on 12/29 but no values between admission for comparison ?shock (was BP lower than we have recorded [employer]AR MECH[employer]IC), ?medication (ceftriaxone, has been improving since this was stopped) CK wnl INR w/o significant elevation Hepatitis panel negative, CMV/EBV negative TSH elevation ?infection -- appears recent adjustment in Synthroid to 50mcg per med history -- need to have f/u PCP to ensure taking appropriate dose/repeat TFT outpatient and as discussed she WAS TAKING W REST OF HER MEDS MRCP equivocal Liver US w/o ductal dilation Portal vein US patent w/o stenosis or evidence for ischemia s/p EUS w/ Dr Childress w/ normal appearing CBD and evidence of fatty infiltration of liver -->felt LFTs likely related to meds. TB still normal, AST/ALT/ALP w/ continued improvement--> 66/262/456 Avoiding hepatotoxic agents, continue to hold atorvastatin Monitor but would have her hold statin until repeat LFTs normalized - would need (3) Stage IV pressure ulcer: Plan: to LLE laterally wound consulted, orthopedics. s/p debridement abx as above, HH at d/c and wound care in follow up (4) Lymphedema: Plan: Chronic/stable, wound RN consulted and following Added amlactin to thickened skin as discussed w/ wound RN 12/31 but had forgotten to order and patient has it on side of bed table but not yet applied 01/02 AM. would monitor/continue at d/c if effective (5) Hypothyroidism: Plan: Last TSH 3.218 in September TSH slightly elevated 5.271, Ft4 wnl *Patient taking incorrectly w/ rest of AM meds --> strongly encouraged taking on empty stomach (and to confirm she is on correct 50mcg dosing w/ PCP) and repeat TFT in 4-6 wks outpatient to ensure normalized (6) CAD (coronary artery disease): Plan: H/o HTN/CAD/HLD/CHF Holding Atorvastatin (CK not elevated, but will hold given elevated LFTs) Continues on ASA, and Amlodipine No CP reported Holding further IVF as good PO intake Volume status is difficult to assess given chronic lymphedema but no SOB reported and remains on RA, 95% (7) Severe obstructive sleep apnea: Plan: Continue cpap at HS (8) Breast cancer: Plan: apparently not candidate for mastectomy per prior notes however patient stated she was hopeful to have f/u in January and consideration for lumpectomy. They thought putting her under for anesthesia for positioning may be too much (tolerated anesthesia great for EUS while inpatient) and strongly encouraged patient f/u and repeat mammogram after discharge w/ Heme/onc f/u in January for continued discussions [place]s [place]/ [place]jica [place] [facility] [place] for consideration surgery Remains on anastrazole daily checked iron panel given prior transfusions -- acute on chronic, no need for Venfoer and hgb stable on repeat draw compared to her baseline (9) Constipation: Plan: neurogenic bowel/bladder Prior BM documented 12/26, +BS on exam, on miralax/senna daily at home Was given dulcolax [place] x 1 on 12/29, no obstruction on KUB Continue daily miralax/senna/dulcolax Repeat KUB if needed tomorrow if not moving bowels (10) Hypernatremia: Plan: resolved w/ 1L D5 12/30, pushing oral fluids without issue Remains stable on repeat, no further IVF (11) Osteomyelitis: Plan: hx chronic osteo , had been following [facility] and then Dr Melton in 2018 upon review appeared had been on Bactrim for chronic immunosuppressive therapy but patient poor historian discussed w/ ID as above no repeat MRI for right now but rec outpt ID f/u and once off abx, MRI pelvis as well as bone bx to be discussed repeat imaging sooner if any pain reported or worrisome appearance of skin, but appears healed over w/o any tracking to bone at present Plan continued inpatient stay on abx, CM working on arranging IV abx for at discharge will need outpt f/u ID-- nurse navigator to f/u on Tuesday Admission and Anticipated Discharge Date Admission Date: December 25, 2022 Supervising Physician Co-Signing Physician Notes PA Supervision Note: I did not personally see or examine the patient today, but I verified all peterson points of OSMAR Hensley's assessment and plan with the following exceptions/additions: None Subjective eval this morning, sitting up in bed on her tablet, no acute distress states feeling well wound vac in place and functioning. additional suppository for today, she states in a joking manner "when it lets loose I told my it's going to be like a stick of PAULA". Denies any abdominal pain at present and has great bowel sounds on exam. No nausea or vomiting. Tolerating IV abx. Flagyl converted to PO last evening. Planning for dc w/ IV abx tomorrow but will need to ensure arranged home infusion company on Tuesday. Questions/concerns addressed at this time. Physical Exam Physical Exam: General: WD/WN female in bed playing on her tablet, NAD, improved energy/appetitie/mood HEENT: head atraumatic, mm improved, trachea midline Resp: improved effort, slightly diminished in bases w/o w/c, on room air 95% CV: RRR, no mrg, b/l chronic lymphedema, calves nontender to palpation (baseline neuropathy reported) GI: +BS throughout INCREASED, soft, slightly distended but nontender to palpation MSK/Neuro/skin: LLE cellulitis improved, wound vac in place and functioning, additional wound to R posterior knee stable hardened skin b/l LE (discussed w/ wound RN about AmLactin, on bedside tablet and patient states to be applied today) Psych: alert/oriented to person/place/time Results & Data Results & Data ([facility]) Vital Signs (Past 12 Hours) Vital Signs Temp Pulse Resp BP BP Pulse Ox O2 Del Method 01/02/23 07:10 36.6 C 75 18 134/68 95 Room Air 01/01/23 22:31 36.8 C 81 18 145/77 H 94 Room Air Laboratory Results 01/02/23 Range/Units 07:32 Sodium 142 (136-145) mmol/L Potassium 3.9 (3.5-5.1) mmol/L Chloride 107 (98-107) mmol/L Carbon Dioxide 30 (21-32) mmol/L Anion Gap 5 (3-11) BUN 26 H (6-23) mg/dl Creatinine 0.41 L (0.6-1.2) mg/dl Est Cr Clr Drug Dosing 131.0 ml/min Est GFR ( Amer) 120.5 ml/min Est GFR (Non-Af Amer) 103.9 ml/min BUN/Creatinine Ratio 63.4 H (10-20) Glucose 82 (70-99(Fasting)) mg/dl Calcium 8.8 (8.5-10.1) mg/dl Total Bilirubin 0.6 (0.2-1.0) mg/dl Direct Bilirubin 0.2 (0-0.2) mg/dl AST 66 H (13-39) U/L ALT 262 H (7-52) U/L Alkaline Phosphatase 456 H (34-104) U/L Total Protein 6.4 (6.0-8.3) gm/dl Albumin 3.2 L (3.4-5.0) gm/dl PG Care Time/CCT Total # of Minutes Spent Total Time Spent with Patient: Total time spent is greater than 50% in coordination of care (as documented) at patient's floor/unit and/or counseling patient: Coding Level of Care Code 26653 SUB INP/OBS CARE 235MIN Diagnoses Cellulitis L03.90 Site of cellulitis: unspecified site Elevated LFTs R79.89 Stage IV pressure ulcer L89.94 Lymphedema I89.0 Hypothyroidism E03.9 CAD (coronary artery disease) I25.10 Severe obstructive sleep apnea G47.33 Breast cancer C50.919 Constipation K59.00 Hypernatremia E87.0 Osteomyelitis M86.9 Osteomyelitis location: unspecified site Osteomyelitis type: unspecified type (1) Cellulitis Site of cellulitis: unspecified site Qualified Code(s): L03.90 - Cellulitis, unspecified (2) Osteomyelitis Osteomyelitis location: unspecified site Osteomyelitis type: unspecified type Qualified Code(s): M86.9 - Osteomyelitis, unspecified
[2023-01-02 08:26] LABS: Albumin Level 3.2 gm/dl (3.4-5.0); BUN Creatinine Ratio 63.4 (10-20); Bilirubin Direct 0.2 mg/dl (0-0.2); Bilirubin,Total 0.6 mg/dl (0.2-1.0); Calcium 8.8 mg/dl (8.5-10.1); Est GFR (African American) 120.5 ml/min; Est GFR (Non-African American) 103.9 ml/min; Potassium 3.9 mmol/L (3.5-5.1); Total Protein 6.4 gm/dl (6.0-8.3)
[2023-01-02] MEDS: AMMONIUM LACTATE 12% LOTION 225 GM BTL EXT PRN (09:51)
[2023-01-02] MEDS ORDERED: ACETAMINOPHEN 500 MG TAB PO ONE (17:07)
[2023-01-03] MEDS: metroNIDAZOLE 500 MG TAB PO SCH ×3 (02:26→17:10)
[2023-01-03] MEDS: LEVOTHYROXINE SODIUM 50 MCG TABLET PO SCH (06:11)
[2023-01-03 07:20] LABS: Hematocrit (blood only) 25.8 % (37.0-47.0); Hemoglobin 8.4 g/dl (12.0-16.0); Mean Corpuscular Hemoglobin 29.9 pg (25.0-34.0); Mean Corpuscular Hgb Conc 32.6 g/dL (32.0-36.0); Mean Corpuscular Volume 91.8 fL (80.0-100.0); Mean Platelet Volume 10.3 fL (9.4-12.4); Platelet Count 229 K/uL (130-400); RDW Coefficient of Variation 18.4 % (11.5-14.5); Red Blood Count 2.81 M/uL (4.20-5.40); White Blood Count 7.95 K/ul (4.8-10.8)
[2023-01-03 07:33] LABS: Albumin Level 3.1 gm/dl (3.4-5.0); BUN Creatinine Ratio 70.7 (10-20); Bilirubin Direct 0.1 mg/dl (0-0.2); Bilirubin,Total 0.6 mg/dl (0.2-1.0); Est GFR (African American) 120.5 ml/min; Est GFR (Non-African American) 103.9 ml/min; Magnesium 1.9 mg/dl (1.7-2.4); Potassium 4.2 mmol/L (3.5-5.1); Total Protein 6.5 gm/dl (6.0-8.3)
[2023-01-03] MEDS: amLODIPine BESYLATE 5 MG TAB PO SCH (07:37)
[2023-01-03] MEDS: ASPIRIN 81 MG ECTAB PO SCH (07:37)
[2023-01-03] MEDS: ANASTROZOLE 1 MG TAB PO SCH (07:37)
[2023-01-03] MEDS: CHOLECALCIFEROL 1,000 UNITS 25 MCG TAB PO SCH (07:37)
[2023-01-03] MEDS: ENOXAPARIN INJ 40 MG/0.4 ML SYR SQ SCH ×2 (07:38→21:05)
[2023-01-03] MEDS: DOCUSATE SODIUM/SENNA 50/8.6MG TAB PO SCH (07:38)
[2023-01-03] MEDS: POLYETHYLENE (MIRALAX) 17 GM PACK PO SCH (07:38)
[2023-01-03] MEDS: PANTOprazole 40 MG TAB PO SCH (07:38)
[2023-01-03] MEDS: CEFEPIME 2,000 MG in SYRINGE 0 ML IV SCH ×3 (07:38→21:05)
--- NOTE | 2023-01-03 07:55 | Hospitalist Progress Note ---
Date of Service January 03, 2023 Assessment & Plan (1) Cellulitis: Plan: Chronic left lower extremity pressure ulceration stage IV w/ increased drainage/purulent for 2-3 days prior to admit w/ hypothermia requiring tomás hugger/sepsis 2nd to LLE infections Dr Baker consulted, s/p bedside debridement 12/27. Wound vac changed 12/31 and will need changed tomorrow 01/03 Cultures w/ pseudomonas, group B strep INITIALLY and switched to Levaquin but then grew bacteroides species 12/30 and added Flagyl and consulted ID Discussed w/ Dr Carrillo -- see official consult. Switched to Cefepime 12/31, to complete course after dosing 01/04 w/ PO Flagyl -- will remain inpatient Nurse navigator working on outpt ID f/u -- will need f/u for chronic osteo of hip/pelvis but has been years. No tender on exam but if any evidence can be done sooner Blood cultures remain NGTD, WBC wnl, afebrile Close f/u with wound care and PCP to ensure taking medications correctly Planning for d/c tomorrow after completetion of abx (2) Elevated LFTs: Plan: On admission, LFTs AST 44, ALP 109 on 12/25 Suspected related to either shock from low BP PLANNER (no significant reported inpatient, but hypothermic on admit), also medications related w/ ceftriaxone on admit as LFT on repeat TB 2.1, AST 1241, ALT 1114, ALP 720 on 01/18/22 CK wnl, INR not elevated, Hep panel/CMV/EBV negative TSH elevation -- not taking correctly -- need to take prior to other meds -- rec repeat TFT outpatient MRCP equivocal for stone, but GI felt likely more meds Liver US w/o ductal dilation, UA portal vein w/o stenosis or evidence for ischemia s/p EUS w/ DR posada w/o stone, evidence for fatty infiltration of liver -- felt LFT elevation 2nd to meds Avoiding hepatoxic meds (got 1gm tylenol x 1 on 01/02) LFTs continue to trend down Would have pt hold statin until normalized -- can have HH repeat labs outpatient (3) Stage IV pressure ulcer: Plan: to LLE laterally wound consulted, orthopedics. s/p debridement abx as above, HH at d/c and wound care in follow up (4) Lymphedema: Plan: Chronic/stable, wound RN consulted and following Added amlactin to thickened skin as discussed w/ wound RN 12/31 but had forgotten to order and patient has it on side of bed table but not yet applied as of 01/02 --> improving w/ use and would continue at d/c Need f/u wound care at d/c (5) Hypothyroidism: Plan: Last TSH 3.218 in September TSH slightly elevated 5.271, Ft4 wnl *Patient taking incorrectly w/ rest of AM meds --> strongly encouraged taking on empty stomach (and to confirm she is on correct 50mcg dosing w/ PCP) and repeat TFT in 4-6 wks outpatient to ensure normalized (6) CAD (coronary artery disease): Plan: H/o HTN/CAD/HLD/CHF Holding Atorvastatin (CK not elevated, but will hold given elevated LFTs) Continues on ASA, and Amlodipine No CP reported Holding further IVF as good PO intake BUN/Cr stable Volume status is difficult to assess given chronic lymphedema but no SOB reported and remains on RA, 95% (7) Severe obstructive sleep apnea: Plan: Continue cpap at HS (8) Breast cancer: Plan: apparently not candidate for mastectomy per prior notes however patient stated she was hopeful to have f/u in January and consideration for lumpectomy. They thought putting her under for anesthesia for positioning may be too much (tolerated anesthesia great for EUS while inpatient) and strongly encouraged patient f/u and repeat mammogram after discharge w/ Heme/onc f/u in January for continued discussions Follows w/ Dr Mojica locally but [facility] for continued f/u for consideration surgery Remains on anastrazole daily checked iron panel given prior transfusions -- acute on chronic, no need for Venfoer and hgb stable on repeat draw compared to her baseline (9) Constipation: Plan: neurogenic bowel/bladder + LARGE BM 01/02 -- continue bowel regimen and ensure bowels moving every 2-3 days at home to prevent constipation/nausea/vomiting (10) Hypernatremia: Plan: resolved w/ 1L D5 12/30, pushing oral fluids without issue Remains stable on repeat for days w/o additional IVF (11) Osteomyelitis: Plan: hx chronic osteo , had been following [facility] and then Dr Melton in 2019 upon review appeared had been on Bactrim for chronic immunosuppressive therapy but patient poor historian discussed w/ ID as above no repeat MRI for right now but rec outpt ID f/u and once off abx, MRI pelvis as well as bone bx to be discussed repeat imaging sooner if any pain reported or worrisome appearance of skin, but appears healed over w/o any tracking to bone at present Plan continue inpatient stay to complete IV abx w/ Cefepime and PO Flagyl Wound vac changed 01/03, HH to be arranged by CM and alerted for d/c tomorrow Need outpt wound f/u as well Admission and Anticipated Discharge Date Admission Date: December 25, 2022 Supervising Physician Co-Signing Physician Notes PA Supervision Note: I did not personally see or examine the patient today, but I verified all peterson points of OSMAR Hensley's assessment and plan with the following exceptions/additions: None Subjective eval this morning, wound nurses in room changing wound vac. dressing to wound vac peeling at edges without moisture sheet but does appear improving w/ good granulation tissue. Wound to R leg crease dressing saturated, unsure if nursing changed recently but changed and discussed needing continued follow up. agreeable to continue inpatient stay to complete her abx for tomorrow rather than home w/ US guided IV and home abx as not yet arranged and prevention of risk to just complete 1 more day inpatient. +LARGE BM yesterday. Good appetite. No fever/chills, chest pain/shortness of breath. Physical Exam Physical Exam: General: WD/WN female in bed with wound nursing, changing wound vac, NAD HEENT: head atraumatic, mm improved, trachea midline Resp: improved effort, slightly diminished in bases w/o w/c, on room air 95% CV: RRR, no mrg, b/l chronic lymphedema, calves nontender to palpation (baseline neuropathy reported) GI: +BS throughout INCREASED, soft, less distension, NONTENDER MSK/Neuro/skin: LLE w/ wound vac removed by wound RN, healthy granulation tissue present but slightly moist/peeling edges into the crease small healed over blister to R thigh, covered R knee crease wound w/ saturated dressing hardened skin b/l LE less hardened since use of amlactin Psych: alert/oriented to person/place/time Results & Data Results & Data (MN) Vital Signs (Past 12 Hours) Vital Signs Temp Pulse Resp BP BP Pulse Ox O2 Del Method 01/03/23 07:30 36.4 C L 72 18 105/78 95 Room Air 01/02/23 21:04 36.5 C 82 17 120/75 95 Room Air Laboratory Results 01/03/23 01/03/23 Range/Units 06:58 06:58 WBC 7.95 (4.8-10.8) K/ul RBC 2.81 L (4.20-5.40) M/uL Hgb 8.4 L (12.0-16.0) g/dl Hct 25.8 L (37.0-47.0) % MCV 91.8 (80.0-100.0) fL MCH 29.9 (25.0-34.0) pg MCHC 32.6 (32.0-36.0) g/dL RDW Std Deviation 60.0 H (36.4-46.3) fL RDW Coeff of Deanna 18.4 H (11.5-14.5) % Plt Count 229 (130-400) K/uL MPV 10.3 (9.4-12.4) fL Sodium 140 (136-145) mmol/L Potassium 4.2 (3.5-5.1) mmol/L Chloride 106 (98-107) mmol/L Carbon Dioxide 33 H (21-32) mmol/L Anion Gap 1 L (3-11) BUN 29 H (6-23) mg/dl Creatinine 0.41 L (0.6-1.2) mg/dl Est Cr Clr Drug Dosing 131.0 ml/min Est GFR ( Amer) 120.5 ml/min Est GFR (Non-Af Amer) 103.9 ml/min BUN/Creatinine Ratio 70.7 H (10-20) Glucose 84 (70-99(Fasting)) mg/dl Calcium 9.0 (8.5-10.1) mg/dl Magnesium 1.9 (1.7-2.4) mg/dl Total Bilirubin 0.6 (0.2-1.0) mg/dl Direct Bilirubin 0.1 (0-0.2) mg/dl AST 41 H (13-39) U/L ALT 186 H (7-52) U/L Alkaline Phosphatase 385 H (34-104) U/L Total Protein 6.5 (6.0-8.3) gm/dl Albumin 3.1 L (3.4-5.0) gm/dl PG Care Time/CCT Total # of Minutes Spent Total Time Spent with Patient: Total time spent is greater than 50% in coordination of care (as documented) at patient's floor/unit and/or counseling patient: Coding Level of Care Code 45911 SUB INP/OBS CARE 3/50MIN Diagnoses Cellulitis L03.90 Site of cellulitis: unspecified site Elevated LFTs R79.89 Stage IV pressure ulcer L89.94 Lymphedema I89.0 Hypothyroidism E03.9 CAD (coronary artery disease) I25.10 Severe obstructive sleep apnea G47.33 Breast cancer C50.919 Constipation K59.00 Hypernatremia E87.0 Osteomyelitis M86.9 Osteomyelitis location: unspecified site Osteomyelitis type: unspecified type (1) Cellulitis Site of cellulitis: unspecified site Qualified Code(s): L03.90 - Cellulitis, unspecified (2) Osteomyelitis Osteomyelitis location: unspecified site Osteomyelitis type: unspecified type Qualified Code(s): M86.9 - Osteomyelitis, unspecified
[2023-01-03] MEDS: AMMONIUM LACTATE 12% LOTION 225 GM BTL EXT PRN (18:35)
[2023-01-04] MEDS: metroNIDAZOLE 500 MG TAB PO SCH ×3 (01:08→17:12)
[2023-01-04] MEDS: LEVOTHYROXINE SODIUM 50 MCG TABLET PO SCH (06:58)
[2023-01-04] MEDS: ASPIRIN 81 MG ECTAB PO SCH (07:58)
[2023-01-04] MEDS: PANTOprazole 40 MG TAB PO SCH (07:58)
[2023-01-04] MEDS: DOCUSATE SODIUM/SENNA 50/8.6MG TAB PO SCH (07:58)
[2023-01-04] MEDS: CHOLECALCIFEROL 1,000 UNITS 25 MCG TAB PO SCH (07:58)
[2023-01-04] MEDS: ANASTROZOLE 1 MG TAB PO SCH (07:59)
[2023-01-04] MEDS: amLODIPine BESYLATE 5 MG TAB PO SCH (07:59)
[2023-01-04] MEDS: ENOXAPARIN INJ 40 MG/0.4 ML SYR SQ SCH (08:00)
[2023-01-04] MEDS: CEFEPIME 2,000 MG in SYRINGE 0 ML IV SCH ×2 (08:00→13:13)
[2023-01-04] MEDS: POLYETHYLENE (MIRALAX) 17 GM PACK PO SCH (08:00)
[2023-01-04 08:14] LABS: Hematocrit (blood only) 26.9 % (37.0-47.0); Hemoglobin 8.7 g/dl (12.0-16.0); Mean Corpuscular Hemoglobin 29.4 pg (25.0-34.0); Mean Corpuscular Hgb Conc 32.3 g/dL (32.0-36.0); Mean Corpuscular Volume 90.9 fL (80.0-100.0); Mean Platelet Volume 10.5 fL (9.4-12.4); Platelet Count 302 K/uL (130-400); RDW Coefficient of Variation 18.2 % (11.5-14.5); RDW Standard Deviation 59.2 fL (36.4-46.3); Red Blood Count 2.96 M/uL (4.20-5.40); White Blood Count 8.05 K/ul (4.8-10.8)
[2023-01-04 08:29] LABS: BUN Creatinine Ratio 55.8 (10-20); Bilirubin Direct 0.1 mg/dl (0-0.2); Bilirubin,Total 0.6 mg/dl (0.2-1.0); Calcium 9.2 mg/dl (8.5-10.1); Creatinine Clr Calc Pharmacy 124.9 ml/min; Est GFR (African American) 118.6 ml/min; Est GFR (Non-African American) 102.3 ml/min; Potassium 4.2 mmol/L (3.5-5.1); Total Protein 6.7 gm/dl (6.0-8.3)
--- NOTE | 2023-01-04 15:59 | Discharge Summary ---
Date of Service date of admission - December 25, 2022 date of discharge - January 04, 2023 Admission HPI Per Admitting Provider Minerva Arreguin is a 72yo F with a PMHx of paraplegia and chronic lymphedema. She presented hypothermic to 34.1, placed on tomás hugger with temperature improvement to 35. Treated with vancomycin for bilateral leg wounds pending debridement. Minerva is seen at the bedside. She reports that she has had increased drainage and purulence from her left leg in the last several days. Was pending a debridement on Tuesday, but drainage seemed to have gotten worse. She felt more tired the last 24 hours and did not think she could make it to that appointment. She denies any fevers/chills. No chest pain, chest pressure, shortness of breath. Principal Diagnosis 1. bilateral leg ulcers 2. left leg ulcer s/p debridement with placement of woundvac 3. history of stroke 4. paraplegia 2nd spina bifida 5. abnormal liver function tests - nearly resolved 6. lymphedema of legs Discharge Exam gen - NAD, obese, pleasant mouth - MMM neck - no JVD heart - RRR, s1 s2, no murmur lungs - CTA b/l except scant rales bases abd - soft NT BS+; mildly distended musculo - b/l leg deformities from spina bifida; edema b/l legs skin - severely scaly skin with stasis changes b/l LEs; woundvac in place left posterior leg near the popliteal fossa region; dressing intact to right posterior leg; no area of cellulitis psych - a/o x 3 Discharge Data Allergies Allergy/AdvReac Type Severity Reaction Status Date / Time nalidixic acid Allergy Unknown Unknown Verified 01/10/23 13:02 Consultations Orthopedic Surgery - Dr Gary Baker Gastroenterology - Dr Fatemeh Childress [facility] Infectious Diseases Wound Care Procedures Performed Operation Date: 12/31/22 11:25 Actual Procedures p Esophagogastroduodenoscopy - Fatemeh Childress, Findings: The examined esophagus was normal. The entire examined stomach was normal. The examined duodenum was normal. p Endoscopic Ultrasonography Upper - Fatemeh Childress, Impression: - Evidence of a cholecystectomy. - There was no sign of significant pathology in the common bile duct. - There was abnormal echogenicity in the visualized portion of the liver. This was hyperechoic. Tissue has not been obtained. However, the endosonographic appearance is consistent with fatty infiltration. - There was no sign of significant pathology in the entire pancreas. - Endosonographic images of the left adrenal gland were unremarkable. - No specimens collected. Bilateral leg ulcers debridement - 12/27/22 - Dr Gary Baker (done at bedside) Application of Wound Vac to left posterior leg wound Ordered Studies Chest X-Ray 12/25/22 14:09 XR chest 1V portable HISTORY: 72 years-old Female Sepsis acute sepsis COMPARISON: Chest radiograph 10/26/2022 TECHNIQUE: AP view of the chest FINDINGS: Cardiomediastinal and hilar silhouettes are unchanged. No pneumothorax, pleural effusion, airspace consolidation or pulmonary edema. Unchanged left hemidiaphragmatic elevation. Bones appear grossly intact. Unchanged scoliosis of the spine. IMPRESSION: No acute process. ACT 112: Negative or not required by law. The above report was generated using voice recognition software. It may contain grammatical, syntax or spelling errors. Electronically signed by: Saeid Chong M.D. 12/25/2022 3:48 PM Cholangiopancreatography MRI 12/29/22 10:04 MRCP CLINICAL HISTORY: Elevated LFTs, evaluate for obstructing stone. TECHNIQUE: Utilizing a 1.5 Isi magnet and dedicated coil, multiplanar, multiecho imaging of the upper abdomen was performed utilizing heavily T2 weighted pulsing sequences without IV contrast. COMPARISON STUDY: Right upper quadrant ultrasound January 21, [address] of the abdomen and pelvis May 20, 2021. FINDINGS: This exam is compromised by susceptibility artifact related to cholecystectomy clips. Additionally, there is motion artifact. No biliary ductal dilatation is identified. The common bile duct measures 5 mm in caliber. There is an equivocal 5 mm filling defect within the distal common bile duct on the 3D MRCP sequence image 64 of 120. Artifact is favored. This finding is not confirmed on the remainder of the pulsing sequences. A 1.2 cm left hepatic lobe cyst is unchanged. There are no suspicious hepatic lesions. No pancreatic ductal dilatation is present. There is no peripancreatic fluid. Several renal cysts are noted. Left hydroureter is similar to CT of May 20, 2021. This is likely chronic. The bladder wall is irregular and trabeculated. Postoperative and congenital deformities within the spine are incidentally noted. There is no abdominal lymphadenopathy. There is no ascites. IMPRESSION: 1. No biliary ductal dilatation status post cholecystectomy. 2. Equivocal 5 mm filling defect within the distal common bile duct. Artifact is favored. A common bile duct calculus could appear similar although is considered less likely. ACT 112: Negative or not required by law. Electronically signed by: Kwabena Montalvo M.D. 12/29/2022 2:46 PM KUB X-Ray 12/29/22 10:04 KUB HISTORY: Acute generalized abdominal pain with reported constipation eval constipation COMPARISON: 11/01/2022 FINDINGS: Chronic appearance of the lumbar spine, pelvis and proximal femora with spinal dysraphism. Demineralized appearance of the bones without acute fracture identified. Sigmoidal scoliosis of the spine. Moderate gaseous distention of the stomach. Nonobstructive bowel gas pattern. Cholecystectomy. Extensive colonic fecal retention and has progressed from the prior study. 10 mm calcification within the right midabdomen is again noted, likely within the subcutaneous tissues of the back. No definite urolith identified. IMPRESSION: 1. Nonobstructive bowel gas pattern. 2. Gaseous distention of the stomach. 3. Extensive colonic fecal retention. ACT 112: Negative or not required by law. The above report was generated using voice recognition software. It may contain grammatical, syntax or spelling errors. Electronically signed by: Saeid Chong M.D. 12/29/2022 11:20 AM Portal Vein US 12/29/22 12:04 US duplex portal hepatic veins HISTORY: 72 years-old Female elevated LFTs acutely elevated LFTs COMPARISON: MRCP 12/29/2022 TECHNIQUE: Multiple real-time sonographic images of the hepatic vasculature were obtained assessing grayscale appearance, color and spectral flow FINDINGS: Patent portal and hepatic veins. Hepatopedal flow within the portal vein. IVC and hepatic artery also appear patent and unremarkable. IMPRESSION: Normal exam. ACT 112: Negative or not required by law. The above report was generated using voice recognition software. It may contain grammatical, syntax or spelling errors. Electronically signed by: Saeid Chong M.D. 12/29/2022 3:33 PM Liver Ultrasound 12/29/22 12:32 US liver CLINICAL HISTORY: Elevated liver function tests. COMPARISON STUDY: Right upper quadrant ultrasound January 21, 2022 and MRCP performed earlier today. FINDINGS: There is no biliary ductal dilatation status post cholecystectomy. The common bile duct measures 5 mm in caliber. Pancreas is obscured by overlying bowel gas. There is no right hydronephrosis. The lower pole of the right kidney is obscured by bowel gas as well. IMPRESSION: 1. No biliary ductal dilatation status post cholecystectomy. 2. Obscured pancreas. ACT 112: Negative or not required by law. Electronically signed by: Kwabena Montalvo M.D. 12/29/2022 3:43 PM Hospital Course (1) Cellulitis: 2nd to chronic left lower extremity stage 4 pressure ulcer near the popliteal fossa/crease of posterior leg. Patient had increased drainage/purulence for 2-3 days prior to admission. Was septic upon presentation with hypothermia. Blood cultures remained negative, however. Dr Gary Baker from [facility] consulted and he performed bedside debridement on 12/27/22 of her bilateral leg ulcers/wounds. The left leg wound is quite extensive & large relative to her right leg wound. Deep culture from the left leg wound grew pseudomonas, group B strep, and bacteroides. The patient underwent Infectious Disease consultation and she received IV antibiotics -- initially Levaquin + Flagyl, and then later changed to Cefepime + Flagyl. She completed all antibiotics on 01/04/23. (2) Stage IV pressure ulcer: Left leg, posterior, near the popliteal fossa. ~8cm x 10cm. s/p debridement on 12/27/[address] Gary Baker. Culture grew pseudomonas, group B strep, and bacteroides. Completed all IV antibiotics prior to discharge. Ultimately a woundvac was applied to this wound. She will discharge home on the woundvac. She will follow-up with the [facility] for ongoing surveillance and have home health services. 4 x 6 superficial down into the subcutaneous tissues. There was an area of necrosis with some dried wound slough, a little bit medial. This was about 0.5 cm in size and it was debrided with a rongeur. Fibrinous exudate was then debrided throughout the superficial wound with good bleeding bed. This was then irrigated and covered with Aquacel Ag and Optifoam. Attention was turned to the left leg. There is a wound in the popliteal crease. This was into the dermis and subcutaneous fat. The area was spread apart. There was grossly necrotic tissue present superficially. Both areas were prepped with Betadine. We then debride the necrosis with a rongeur. Then, some of the deeper necrotic fatty tissue in the central portion was debrided with pickups and sharply excised with a 15 blade scalpel. This went down to the level of what could be the gastrocnemius fascia, which also was bleeding and healthy in appearance and was about exposed for a centimeter in diameter. Debridement of the remainder of the wound was performed. This wound is about 8 x 10 cm. This was done with a rongeur. Good bleeding throughout with go wound consulted, orthopedics. s/p debridement abx as above, HH at d/c and wound care in follow up (3) Stage III pressure ulcer: 4cm x 6cm, right posterior leg. s/p debridement by Dr Baker on 12/27/22. Treated with Aquacel Ag & Optifoam. (4) Sepsis: 2nd to #1/#2. Sepsis resolved. Blood cultures remained negative while here. Completed all IV/PO antibiotics prior to discharge. (5) Elevated LFTs: 12/25/22 (day of admission) -- AST 44, ALP 109, ALT was wnl. 12/29/22 -- AST and ALT >1000; ALK 700s. Rapid rise in LFTs either medication-induced (Rocephin) vs shock liver vs other. Acute hepatitis panel, CMV, and EBV titers were all negative. INR remained stable/normal while here. MRCP equivocal for CBD stone. Liver US w/o ductal dilation. Portal dopplers negative for PVT. Tony RODRÍGUEZ saw patient in consult and they advised EGD/EUS. Both procedures were performed by Dr Fatemeh Childress. EUS without evidence of gallstones or choledocholithiasis. Liver with evidence of fatty liver. Her LFTs continued to improve during her protracted stay. By discharge her transaminases were either normal or trending towards such. Alk phos was improving. Tony RODRÍGUEZ felt her acute hepatitis was likely due to medication effects. (6) Osteomyelitis: History of chronic osteomyelitis. Records indicate she previously had chronic osteomyelitis of the right ischium and right hip. She had had a right ischial decubitus ulcer in the past by report. Ms Arreguin followed with [facility] infectious diseases, then Dr Sheila Melton from [facility] in 2019. Due to the complexity of her infectious disease history she is being referred to infectious diseases. The [facility] Hospital[facility] nurse navigator is assisting with this referral. Ideally we will have patient followed by Dr Nowak out of her [place] infectious disease clinic. (7) Lymphedema: Chronic/stable. Added amlactin to use on dry, scaly areas of legs. Lasix prescribed at discharge to use only for a few days then prn thereafter. (8) Hypothyroidism: Last TSH 3.218 in September 2022. TSH slightly elevated 5.271 this admission with normal FT4. Advise repeat TFTs in 4-6 weeks for stability. (9) CAD (coronary artery disease): H/o HTN/CAD. Holding Atorvastatin (CK not elevated, but statin held due to elevated LFTs). Continue aspirin. Continue amlodipine. (10) Severe obstructive sleep apnea: Continue cpap at HS (11) Breast cancer: f/u in January [address] Sarah Mojica at [facility]. Continue anastrazole. Patient is planning to follow-up with [facility] to discuss whether she is a candidate for lumpectomy. (12) Constipation: 2nd to neurogenic bowel. Cont bowel regimen. (13) Hypernatremia: Peak Na 148. Was 140-145 for several days prior to discharge. (14) Anemia: Discharge Hb 8.7. Chronic Hb level ~8-10. 2nd to anemia of chronic disease. Transferrin saturation 21%. Ferritin level 144. Vitamin B12 733 in 09/2022. Folate 17 in 10/2022. (15) Paraplegia: Motorized wheelchair dependent. (16) Spina bifida: With resulting paraplegia, neurogenic bladder, neurogenic bowel. Home Health Attestation I certify that this patient is under my care and that I, or a physicians cleaner assistant working with me, had a face to-face encounter that meets the home health [id number] encounter requirements with this patient. The encounter with the patient was in whole, or in part, for the following medical condition, which is the primary reason for home health care (list medical condition): Resumption of care. Stage IV pressure ulcer I certify that, based on my findings, the following services are medically necessary home health services: My clinical findings support the need for the above services because: PT Assessment for Endurance / Balance / Strength PT Eval for Safety and Mobility PT Eval for Safety, Gait Training, Assistive Devices PT Gait and Balance Training, Strengthening and Safety Skilled Nsg Assessment Skilled Nsg Assessment Surgical Incision / Wound Skilled Nsg Assess Pt Illness, Disease and Sx Monitoring Skilled Nsg to Assess, Perform and Teach Wound Care S/S to Report to Provider Teach on Disease Management and Interventions Further, I certify that my clinical findings support that this patient is homebound (i.e. absences from home require considerable and taxing effort and are for medical reasons or sikh services or infrequently or of short duration when for other reasons) because: Transportation Assistance/Unable to Leave Home Unassisted Certification for Home Health Services: Based on the above findings, I certify that this patient is confined to the home and needs intermittent fci care, physical therapy and/or speech therapy or continues to need occupational therapy. The patient is under my care, and I have initiated the establishment of the plan of care. This patient will be followed by a physician who will periodically review the plan of care. Total Time Total Time Spent Total Time Spent (In Minutes): 50 Discharge Plan Discharge Items Patient Disposition: Home - Home Health Services Reason For Visit: LLE CELLULITIS VS VENOUS STASIS Discharge Diagnosis: 1. bilateral leg ulcers 2. left leg ulcer with infection requiring debridement and placement of woundvac 3. history of stroke 4. paraplegia 5. abnormal liver function tests - due to low blood pressure? medication side effect? liver tests nearly back to normal 6. lymphedema of legs Activity: Resume your previous activity Non-emergency contact: Primary Care Provider, Surgeon and Oncologist Call non-emergency contact if: you have any medication questions, your symptoms worsen, your pain is not controlled, you have a fever, your wound has increased redness, your wound has increased drainage and your wound pain has increased Follow-up/Referrals: Roxanne Guerin CRNP [Nurse Practitioner] - 01/10/23 1:00 pm Gary Baker MD [Surgeon] - (Call office to schedule an appointment as needed.) Fartun Frank PA-C [Primary Care Provider] - 01/10/23 9:10 am ([facility] DR. PEREZ) Sarah Mojica MD [Physician] - () Diet: Heart Healthy Addtl Attending Provider Instructions: You have been hospitalized for lower leg wounds/ulcers. Orthopedics was consulted and you underwent bedside debridement. You should follow up with Dr Baker as needed. You completed a full course of IV antibiotics in the hospital. You will need outpatient infectious disease follow up to have continued monitoring of your leg wounds and potentially have a MRI of the pelvis/etc due to your prior history of osteomyelitis (bone infection). You were seen by wound care and wound vac has been placed on the wound on the left leg to help with healing. Home health has been arranged to help with changing of this. You should continue to use Aquacel and adaptic dressing changes to the right leg. Per discussion with wound care, please use Amlactin (Lac-hydrin) cream twice daily to dry/crusted skin on your lower legs. This should help soften these areas as well. The Lac-hydrin can be purchased [id number]. Please consider a hospital bed/low airloss mattress to prevent further skin issues/infections. You should follow up with mammogram rescheduling outpatient and follow up with [facility] as previously arranged for consideration for lumpectomy for your breast cancer. Your SYNTHROID (levothyroxine) for your thyroid should be taken on an EMPTY stomach, 1 hour prior to your other medications for it to be working properly. Please have repeat thyroid level testing with primary care in 6 weeks. You should keep up with a bowel regimen and if not moving your bowels at least every other day you likely would benefit from a suppository to help assist with bowel movements and prevent worsening constipation which can make you nauseated and feel like you have to vomit. Your liver tests were elevated and GI was consulted, however imaging has been negative and this was likely from previously antibiotics used earlier in your hospitalization and your levels have been improving on repeat lab draws. You should continue to HOLD YOUR ATORVASTATIN AT DISCHARGE. Do not take atorvastatin until your family doctor states it is safe to resume. We have prescribed a low dose of diuretic (water pills) to take for the next 2 days only (01/05 and 01/06). Take furosemide 20mg each morning on those 2 days. Best to take it first thing in the AM. After those 2 days just use the furosemide "as needed" for worsening edema (swelling) of your legs. When you take the furosemide water pill please take a potassium supplement with it. You will only take the potassium if furosemide is used. I have sent prescriptions to [facility] pharmacy for the furosemide and potassium. You should follow up with primary care provider in the next 7-10 days after discharge to monitor your progress. Please return to the emergency department with any fevers/chills, chest pain, shortness of breath, worsening redness/drainage to your wounds, or for any other symptoms concerning for you. It has been a pleasure being a part of the medical team providing for you while you have been in the hospital. Take care! Addtl Data Conversion Analyst Provider Instructions: Orthopedic instruction: Wound care as per wound care nurse. Follow up with wound clinic as an outpatient for management of wounds. Follow up with Dr. Baker as needed. Pending Studies at Discharge: No Studies:: blood cultures -- no growth to date Stand-Alone Forms: [facility] [employer], Smoking Cessation Medications and DC Order Prescriptions: [place]-Hydrin Five 5 % Lotion 1 applic EXT BID PRN (Reason: dry skin) Qty: 226 0RF cholecalciferol (vitamin D3) 25 mcg (1,000 unit) Capsule 1,000 unit PO QAM Qty: 30 0RF furosemide 20 mg tablet 20 mg PO .qam as directed Qty: 14 0RF Rx Instructions: take AM of 2/15 and AM of 2/16, then qam PRN thereafter for swelling. potassium chloride 20 mEq tablet extended release 20 meq PO .daily as needed Qty: 14 0RF Rx Instructions: ONLY take the potassium supplement if you take a dose of furosemide water pill. Continued polyethylene glycol 3350 [Miralax] 17 gram powder in packet 17 g PO DAILY PRN (Reason: constipation) pantoprazole 40 mg tablet,delayed release (DR/EC) 40 mg PO DAILY albuterol sulfate 90 mcg/actuation HFA aerosol inhaler 2 puff Inhalation DIRECTED PRN (Reason: Shortness Of Breath Or Wheezing) sennosides-docusate sodium [Senokot-S] 8.6-50 mg tablet 1 tab PO DAILY (DME) Oxygen Home Liters Per Minute See Rx Instructions .ROUTE .MEDSUPPLY Qty: 1 0RF Rx Instructions: As directed - 2 L NC O2 at bedtime & with naps amlodipine [Norvasc] 5 mg Tablet 5 mg PO QAM Qty: 30 2RF aspirin 81 mg Tablet,Delayed Release (Dr/Ec) 81 mg PO QAM Qty: 90 3RF Rx Instructions: purchase [id number] anastrozole 1 mg tablet 1 mg PO DAILY levothyroxine 50 mcg tablet 50 mcg PO DAILY Santyl 250 unit/gram Ointment 1 applic EXT DAILY Qty: 30 0RF Rx Instructions: to wound ondansetron 4 mg Tablet,Disintegrating 4 mg PO Q6H PRN (Reason: nausea) Qty: 15 0RF nystatin 100,000 unit/gram Cream 1 applic EXT BID Qty: 30 0RF Rx Instructions: to rash on leg Discontinued atorvastatin 40 mg Tablet 40 mg PO QAM Qty: 30 2RF Discharge Orders: Discharge Order (Routine); Ordered 01/04/23 Ordered By: Umesh Levy Admission Data Admit Date/Time: 12/25/22 19:05 Attending Provider: Umesh Levy Admit Provider: Gary Olmos Primary Care Provider: Fartun Frank Other Providers: [facility] ; Gary Olmos ; Gary Baker ; Fatemeh Childress Other Interventions: Discharge Summary Assessment (RN) Last Done: 01/04/23 15:58 Coding Level of Care Code HOSP INP/OBS DISCH >30 MIN Diagnoses Cellulitis L03.90 Site of cellulitis: unspecified site Stage IV pressure ulcer L89.94 Stage III pressure ulcer L89.93 Sepsis A41.9 Elevated LFTs R79.89 Osteomyelitis M86.9 Osteomyelitis location: unspecified site Osteomyelitis type: unspecified type Lymphedema I89.0 Hypothyroidism E03.9 CAD (coronary artery disease) I25.10 Severe obstructive sleep apnea G47.33 Breast cancer C50.919 Constipation K59.00 Hypernatremia E87.0 Anemia D64.9 Paraplegia G82.20 Spina bifida Q05.9 Spinal region: unspecified Presence of hydrocephalus: unspecified hydrocephalus presence
== END 2023-01-04 20:10 | disposition home health service (06) | DRG 853 ==
LOC: ED 13:48 → SUATTDRO 19:05 → 3N 19:05
DX: L89.95 Pressure ulcer of unspecified site, unstageable; L89.894 Pressure ulcer of other site, stage 4; M86.68 Other chronic osteomyelitis, other site; I25.10 Atherosclerotic heart disease of native coronary artery without angina pectoris; L89.94 Pressure ulcer of unspecified site, stage 4; G47.33 Obstructive sleep apnea (adult) (pediatric); I96 Gangrene, not elsewhere classified; L89.893 Pressure ulcer of other site, stage 3; E87.0 Hyperosmolality and hypernatremia; I25.2 Old myocardial infarction; C50.919 Malignant neoplasm of unspecified site of unspecified female breast; Q05.9 Spina bifida, unspecified; R57.9 Shock, unspecified; Z99.3 Dependence on wheelchair; I50.9 Heart failure, unspecified; Z86.73 Personal history of transient ischemic attack (TIA), and cerebral infarction without residual deficits; L89.93 Pressure ulcer of unspecified site, stage 3; R68.0 Hypothermia, not associated with low environmental temperature; Z79.82 Long term (current) use of aspirin; N31.9 Neuromuscular dysfunction of bladder, unspecified; Z79.890 Hormone replacement therapy; K59.00 Constipation, unspecified; G82.20 Paraplegia, unspecified; E03.9 Hypothyroidism, unspecified; Z79.899 Other long term (current) drug therapy; K59.2 Neurogenic bowel, not elsewhere classified; K76.0 Fatty (change of) liver, not elsewhere classified; I89.0 Lymphedema, not elsewhere classified; B95.1 Streptococcus, group B, as the cause of diseases classified elsewhere; I11.0 Hypertensive heart disease with heart failure; A41.52 Sepsis due to Pseudomonas; L03.116 Cellulitis of left lower limb

== ENCOUNTER 2024-01-12 18:14 | Inpatient (IN) ==
--- NOTE | 2024-01-12 18:34 | ED Triage Note ---
Date of Service January 12, 2024 Provider in Triage Author: Robel Petersen History of Present Illness This patient was briefly evaluated while in triage. An abbreviated physical exam was performed. This patient is a 73-year-old Female who presents to the ED for evaluation of difficulty with speaking/words over the past week. Possible fevers at home. Extensive past medical history. Physical Exam Limited Triage Exam: VITALS: Vitals are noted on the nurse's note and reviewed by myself. Vital signs stable. GENERAL: White female in a wheelchair. In NAD. HEART: Regular rate and rhythm without murmurs gallops or rubs. LUNGS: Clear to auscultation bilaterally without wheezes, rales or rhonchi. No retractions or accessory muscle use. NEURO: Patient was alert Initial orders for labs and / or imaging were placed and patient was placed in the waiting area until a bed is available. Please see further documentation for the full ED course. MDM / Impression Impression Impression: Hypothermia, Transaminitis
[2024-01-12 19:00] LABS: Basophils # (auto) 0.03 K/uL (0.00-0.20); Basophils % (auto) 0.7 %; Eosinophils # (auto) 0.13 K/uL (0.00-0.50); Eosinophils % (auto) 3.1 %; Hematocrit (blood only) 34.4 % (37.0-47.0); Immature Granulocytes # (auto) 0.01 K/uL (0.01-0.20); Immature Granulocytes % (auto) 0.2 %; Lymphocytes # (auto) 1.04 K/uL (1.20-3.40); Mean Corpuscular Hemoglobin 29.5 pg (25.0-34.0); Mean Corpuscular Volume 92.2 fL (80.0-100.0); Mean Platelet Volume 11.4 fL (9.4-12.4); Monocytes # (auto) 0.27 K/uL (0.11-0.59); Monocytes % (auto) 6.5 %; Neutrophils # (auto) 2.68 K/uL (1.40-6.50); Neutrophils % (auto) 64.5 %; Platelet Count 96 K/uL (130-400); RDW Coefficient of Variation 17.1 % (11.5-14.5); RDW Standard Deviation 57.3 fL (36.4-46.3); Red Blood Count 3.73 M/uL (4.20-5.40); White Blood Count 4.16 K/ul (4.8-10.8)
[2024-01-12 19:15] LABS: Alanine Aminotransferase 222 U/L (7-52); Albumin Globulin Ratio 1.2 (0.9-2); Albumin Level 4.1 gm/dl (3.4-5.0); Alkaline Phosphatase 137 U/L (34-104); Anion Gap 6 (3-11); Aspartate Aminotransferase 212 U/L (13-39); BUN Creatinine Ratio 78.2 (10-20); Bilirubin,Total 0.6 mg/dl (0.2-1.0); Blood Urea Nitrogen 43 mg/dl (6-23); Calcium 9.9 mg/dl (8.6-10.3); Carbon Dioxide 30 mmol/L (21-32); Chloride 105 mmol/L (98-107); Est GFR (African American) 108.6 ml/min; Est GFR (Non-African American) 93.7 ml/min; Globulin 3.4 gm/dl (2.5-4.0); Glucose 160 mg/dl (70-99(Fasting)); Potassium 4.4 mmol/L (3.5-5.1); Sodium 141 mmol/L (136-145); Total Protein 7.5 gm/dl (6.0-8.3)
[2024-01-12 19:21] LABS: Troponin I High Sensitivity 10.9 pg/ml (0-14)
[2024-01-12 19:33] LABS: Partial Thromboplastin Ratio 1.3; Partial Thromboplastin Time 37 Seconds (21-31); Prothrombin Time 11.2 Seconds (9.0-12.0)
[2024-01-12] MEDS: OPTIRAY 320 125ml IV ONE (20:22)
--- NOTE | 2024-01-12 20:51 | CT Scan Report ---
Exam(s): CT HEAD Without Contrast EXAM: CT Head Without Intravenous Contrast CLINICAL HISTORY: Reason for exam: neuro deficit,. TECHNIQUE: Axial computed tomography images of the head/brain without intravenous contrast. CTDI is 67.31 mGy and DLP is 1098.96 mGy-cm. Automated exposure control was utilized for the study. A dose lowering technique was utilized adhering to the principles of ALARA. COMPARISON: No relevant prior studies available. FINDINGS: Brain: Global age-related cerebral atrophy. 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 No significant white matter disease. No acute intracranial bleed. Midline shift: No midline shift. Ventricles: Dilated ventricles, consistent with hydrocephalus. Bones/joints: Unremarkable. No acute fracture. Soft tissues: Unremarkable. Sinuses: Unremarkable as visualized. No acute sinusitis. Mastoid air cells: Unremarkable as visualized. No mastoid effusion. IMPRESSION: 1. Dilated ventricles, consistent with hydrocephalus. 2. No acute intracranial bleed. 3. 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 Electronically signed by: Froylan Ferrer MD 01/12/24 20:50 PM
--- NOTE | 2024-01-12 20:53 | CT Scan Report ---
Exam(s): CTA NECK With Contrast IV Amt: 117 ML OPTIRAY 320 EXAM: CT Angiography Neck With Intravenous Contrast CLINICAL HISTORY: Reason for exam: euro deficit,. TECHNIQUE: Routine carotid CT angiography protocol was performed with intravenous contrast. NASCET criteria using the distal ICAs for comparison were used for evaluation of stenoses. CTDI is 14.67 mGy and DLP is 513.96 mGy-cm. Automated exposure control was utilized for the study. A dose lowering technique was utilized adhering to the principles of ALARA. MIP reconstructed images were created and reviewed. CONTRAST: Patient received 117 ML OPTIRAY 320 of IV contrast COMPARISON: None. FINDINGS: VASCULATURE: Right common carotid artery: Unremarkable. No occlusion or significant stenosis. No dissection. Right internal carotid artery: Unremarkable. Extracranial segment is patent with no occlusion or significant stenosis. No dissection. Right external carotid artery: Unremarkable. No occlusion. Right vertebral artery: Unremarkable. No occlusion or significant stenosis. No dissection. Left common carotid artery: Unremarkable. No occlusion or significant stenosis. No dissection. Left internal carotid artery: Unremarkable. Extracranial segment is patent with no occlusion or significant stenosis. No dissection. Left external carotid artery: Unremarkable. No occlusion. Left vertebral artery: Unremarkable. No occlusion or significant stenosis. No dissection. Atherosclerotic changes of the carotid bifurcations and vertebral artery V4 segments. IMPRESSION: No large vessel occlusion. Electronically signed by: Froylan Ferrer MD 01/12/24 20:52 PM
--- NOTE | 2024-01-12 20:54 | CT Scan Report ---
Exam(s): CTA HEAD With Contrast IV Amt: 117 ML OPTIRAY 320 EXAM: CT Angiography Head With Intravenous Contrast CLINICAL HISTORY: Reason for exam: euro deficit,. TECHNIQUE: Axial computed tomographic angiography images of the head with intravenous contrast. CTDI is 16.61 mGy and DLP is 8.3 mGy-cm. Automated exposure control was utilized for the study. A dose lowering technique was utilized adhering to the principles of ALARA. MIP reconstructed images were created and reviewed. CONTRAST: Patient received 117 ML OPTIRAY 320 of IV contrast COMPARISON: No relevant prior studies available. FINDINGS: Right internal carotid artery: No acute findings. Intracranial segment is patent with no significant stenosis. No aneurysm. Right anterior cerebral artery: Unremarkable. No occlusion or significant stenosis. No aneurysm. Right middle cerebral artery: Unremarkable. No occlusion or significant stenosis. No aneurysm. Right posterior cerebral artery: Unremarkable. No occlusion or significant stenosis. No aneurysm. Left internal carotid artery: No acute findings. Intracranial segment is patent with no significant stenosis. No aneurysm. Left anterior cerebral artery: Unremarkable. No occlusion or significant stenosis. No aneurysm. Left middle cerebral artery: Unremarkable. No occlusion or significant stenosis. No aneurysm. Left posterior cerebral artery: Unremarkable. No occlusion or significant stenosis. No aneurysm. Atherosclerotic changes of the cavernous carotid arteries. IMPRESSION: No large vessel occlusion. Electronically signed by: Froylan Ferrer MD 01/12/24 20:53 PM
[2024-01-12 21:31] LABS: Appearance Urine Clear (Clear); Bilirubin Urine Negative (Negative); Blood Urine Negative (Negative); Color Urine Yellow; Glucose Urine UA Negative (Negative); Ketones Urine Negative (Negative); Leukocyte Esterase Urine Negative (Negative); Nitrite Urine Negative (Negative); Protein Urine Negative (Negative); Specific Gravity Urine 1.018 (1.000-1.030); Urobilinogen Urine Negative (Negative); pH Urine 5.5 (4.5-7.5)
[2024-01-12 22:38] LABS: Base Excess VBG 4.7 mEq/L; HCO3 VBG 32 mmol/L; Oxygen Saturation VBG < 60.0 %; PCO2 VBG 58 mmHg (38-50); PO2 VBG 35 mmHg; pH VBG 7.35 (7.36-7.41)
[2024-01-12 22:40] LABS: Lipase 168 U/L (11-82)
[2024-01-12 22:50] LABS: Creatine Kinase 58 U/L (26-192)
[2024-01-12] MEDS: SODIUM CHLORIDE 0.9% 1,000 ML IV SCH (23:03)
[2024-01-12] MEDS: CEFEPIME 2,000 MG in SYRINGE 0 ML IV STA (23:04)
--- NOTE | 2024-01-12 23:44 | Emergency Department Note ---
History of Present Illness General Chief complaint: Confusion Stated complaint: CONFUSED Time Seen by Provider: 01/12/24 22:02 Source: family () History of Present Illness Provider complaint: Altered mental status Onset (ago): week(s) 1 73-year-old female presenting to emergency with for altered mental status. Patient and reports that patient has been having difficulty speaking and finding her words for the last week. They report that the patient presented similarly last time she had a bad infection. No fevers. No nausea vomiting diarrhea. No falls or traumas. No chest pain difficulty breathing. No abdominal pain. Home Medications Medication Instructions Recorded Confirmed Type Oxygen Home E0424 #1 ea 05/21/21 01/13/24 Rx amlodipine 5 mg tablet (Norvasc) 5 mg PO QAM #30 tabs 05/21/21 01/13/24 Rx aspirin 81 mg tablet,delayed 81 mg PO QAM #90 tabs 05/21/21 01/13/24 Rx release pantoprazole 40 mg tablet,delayed 40 mg PO DAILY 10/20/21 01/13/24 History release anastrozole 1 mg tablet 1 mg PO DAILY 10/23/22 01/13/24 History levothyroxine 50 mcg tablet 50 mcg PO DAILY 10/23/22 01/13/24 History cholecalciferol (vitamin D3) 25 1,000 unit PO QAM #30 caps 01/01/23 01/13/24 Rx mcg (1,000 unit) capsule atorvastatin 40 mg tablet 40 mg PO UD 01/13/24 01/13/24 History sertraline 50 mg tablet 50 mg PO DAILY 01/13/24 01/13/24 History Allergies Allergy/AdvReac Type Severity Reaction Status Date / Time nalidixic acid Allergy Unknown Unknown Verified 12/15/23 13:30 Past Med/Surg History Medical History Constipation Elevated LFTs Lymphedema Stage IV pressure ulcer Hypothyroidism Breast cancer Ulcers of both lower extremities Elevated LFTs Heart failure CAD (coronary artery disease) History of CVA (cerebrovascular accident) Traumatic open wound of left lower leg Transaminitis Stage III pressure ulcer Severe obstructive sleep apnea Apnea Chronic cough Hypokalemia Nausea & vomiting Dehydration Pressure ulcer of left calf Stroke Cellulitis Meningitis spinal 2019 Lymphedema of both lower extremities HTN (hypertension) Osteomyelitis Hiatal hernia Hypertension Spina bifida (06/21/13) Paraplegia (06/21/13) Neurogenic bladder (06/21/13) Surgical History H/O bone graft H/O section Hx of cholecystectomy Family History Father Hypertension Myocardial infarction Herniated disc Mother Myocardial infarction Colorectal cancer Uterine cancer Other Family history non-contributory Social History Smoking Status: Never smoker Second Hand Exposure: No; Do You Dip or Chew Tobacco: No; Hx Alcohol Use: No Hx Substance Use: No Preferred Language: Bangladeshi Communication Ability: Effective Visual Impairment: Limited Hearing Ability: Normal Editor Map Required: No Beliefs That Will Affect Care: None marital status: Current Living Situation: Spouse current occupational status: retired How many Children do You have: 2 Feels Safe at Home: Yes Diet: regular caffeine: Yes (tea) during the past year weight has: increased > 10 lbs Physical Activity Frequency: Does not Exercise Do you think of yourself as: straight/heterosexual Gender Identity: Female Assistive Devices: CPAP, Glasses, Mechanical Lift, Oxygen - at Night, Scooter/Electric Scooter and Wheelchair Physical Exam Vital Signs Vital Signs - 24 hr 01/12/24 18:32 01/12/24 19:39 01/12/24 19:45 Temperature 36 C L Temperature Source Temporal Artery Scan Pulse Rate 58 L 54 L 56 L Pulse Rate [Apical] Pulse Rate from SpO2 Sensor 64 Pulse Rhythm Regular Pulse Strength Normal Respiratory Rate 20 14 Respiratory Effort / Characteristics Non-Labored Spontaneous Respiratory Depth Normal Blood Pressure 136/78 Blood Pressure [Right Arm] Blood Pressure Mean 97 Blood Pressure Mean [Right Arm] Blood Pressure Position Sitting Pulse Oximetry 98 89 L Oxygen Delivery Method Room Air Sepsis Recent Fever Within 48 Hours No Sepsis New/Unexplained Change in Mental Status N/A Sepsis Action Taken by Nursing No Action Required 01/12/24 19:46 01/12/24 19:47 01/12/24 19:47 Temperature Temperature Source Pulse Rate 63 Pulse Rate [Apical] 60 Pulse Rate from SpO2 Sensor Pulse Rhythm Pulse Strength Respiratory Rate 15 Respiratory Effort / Characteristics Respiratory Depth Blood Pressure Blood Pressure [Right Arm] Blood Pressure Mean Blood Pressure Mean [Right Arm] Blood Pressure Position Pulse Oximetry 100 Oxygen Delivery Method Room Air Room Air Sepsis Recent Fever Within 48 Hours Sepsis New/Unexplained Change in Mental Status Sepsis Action Taken by Nursing 01/12/24 20:00 01/12/24 20:00 01/12/24 21:00 Temperature Temperature Source Pulse Rate 53 L Pulse Rate [Apical] 58 L Pulse Rate from SpO2 Sensor 54 L Pulse Rhythm Pulse Strength Respiratory Rate 11 L 18 Respiratory Effort / Characteristics Respiratory Depth Blood Pressure 110/58 L Blood Pressure [Right Arm] 126/65 Blood Pressure Mean 78 Blood Pressure Mean [Right Arm] 85 Blood Pressure Position Pulse Oximetry 96 97 Oxygen Delivery Method Room Air Sepsis Recent Fever Within 48 Hours Sepsis New/Unexplained Change in Mental Status Sepsis Action Taken by Nursing 01/12/24 21:00 01/12/24 21:01 01/12/24 21:01 Temperature Temperature Source Pulse Rate 59 L 57 L Pulse Rate [Apical] Pulse Rate from SpO2 Sensor 68 58 L Pulse Rhythm Pulse Strength Respiratory Rate 18 20 Respiratory Effort / Characteristics Respiratory Depth Blood Pressure 126/65 Blood Pressure [Right Arm] Blood Pressure Mean 76 Blood Pressure Mean [Right Arm] Blood Pressure Position Pulse Oximetry 79 L 96 Oxygen Delivery Method Sepsis Recent Fever Within 48 Hours Sepsis New/Unexplained Change in Mental Status Sepsis Action Taken by Nursing 01/12/24 21:30 01/12/24 21:31 01/12/24 21:31 Temperature Temperature Source Pulse Rate 55 L 62 Pulse Rate [Apical] Pulse Rate from SpO2 Sensor 58 L 63 Pulse Rhythm Pulse Strength Respiratory Rate 14 13 Respiratory Effort / Characteristics Respiratory Depth Blood Pressure 107/55 L Blood Pressure [Right Arm] Blood Pressure Mean 68 Blood Pressure Mean [Right Arm] Blood Pressure Position Pulse Oximetry 95 97 Oxygen Delivery Method Sepsis Recent Fever Within 48 Hours Sepsis New/Unexplained Change in Mental Status Sepsis Action Taken by Nursing 01/12/24 22:00 01/12/24 22:30 01/12/24 22:39 Temperature Temperature Source Pulse Rate 64 63 58 L Pulse Rate [Apical] Pulse Rate from SpO2 Sensor 60 Pulse Rhythm Pulse Strength Respiratory Rate 19 16 10 L Respiratory Effort / Characteristics Respiratory Depth Blood Pressure Blood Pressure [Right Arm] Blood Pressure Mean Blood Pressure Mean [Right Arm] Blood Pressure Position Pulse Oximetry 99 Oxygen Delivery Method Sepsis Recent Fever Within 48 Hours Sepsis New/Unexplained Change in Mental Status Sepsis Action Taken by Nursing 01/12/24 22:39 01/12/24 22:45 01/12/24 22:45 Temperature 31.2 C L Temperature Source Pulse Rate 57 L Pulse Rate [Apical] Pulse Rate from SpO2 Sensor 57 L Pulse Rhythm Pulse Strength Respiratory Rate 8 L Respiratory Effort / Characteristics Respiratory Depth Blood Pressure 128/84 121/77 Blood Pressure [Right Arm] Blood Pressure Mean 107 87 Blood Pressure Mean [Right Arm] Blood Pressure Position Pulse Oximetry 95 Oxygen Delivery Method Sepsis Recent Fever Within 48 Hours Sepsis New/Unexplained Change in Mental Status Sepsis Action Taken by Nursing 01/12/24 23:15 01/12/24 23:45 01/12/24 23:52 Temperature 31.3 C L Temperature Source Curtis Cath ( Temp Sensing) Pulse Rate 69 Pulse Rate [Apical] 62 62 Pulse Rate from SpO2 Sensor Pulse Rhythm Pulse Strength Respiratory Rate 16 15 Respiratory Effort / Characteristics Respiratory Depth Blood Pressure Blood Pressure [Right Arm] 124/70 109/87 Blood Pressure Mean Blood Pressure Mean [Right Arm] 88 94 Blood Pressure Position Pulse Oximetry 95 94 Oxygen Delivery Method Room Air Room Air Sepsis Recent Fever Within 48 Hours Sepsis New/Unexplained Change in Mental Status Sepsis Action Taken by Nursing 01/13/24 00:00 01/13/24 00:30 01/13/24 01:00 Temperature 31.7 C L 32.1 C L 32.5 C L Temperature Source Curtis Cath ( Temp Sensing) Curtis Cath ( Temp Sensing) Curtis Cath ( Temp Sensing) Pulse Rate Pulse Rate [Apical] 80 71 61 Pulse Rate from SpO2 Sensor Pulse Rhythm Pulse Strength Respiratory Rate 15 16 16 Respiratory Effort / Characteristics Respiratory Depth Blood Pressure Blood Pressure [Right Arm] 124/72 128/76 117/90 Blood Pressure Mean Blood Pressure Mean [Right Arm] 89 93 99 Blood Pressure Position Pulse Oximetry 96 94 93 Oxygen Delivery Method Room Air Room Air Room Air Sepsis Recent Fever Within 48 Hours Sepsis New/Unexplained Change in Mental Status Sepsis Action Taken by Nursing Physical Exam GENERAL: She is oriented to person, place, and time. Cold to touch. HENT: Exam performed. -Head: Normocephalic and atraumatic. EYES: Conjunctivae and EOM are normal. Pupils are equal, round, and reactive to light. Right eye exhibits no discharge. Left eye exhibits no discharge. No scleral icterus. NECK: Normal range of motion. Neck supple. No JVD present. CV: Normal rate, regular rhythm, normal heart sounds and intact distal pulses. Palpable radial pulses bue. PULM/CHEST: Effort normal and breath sounds normal. No respiratory distress. No stridor. She has no wheezes. She has no rales. ABD: The abdomen is soft and obese. There is no tenderness. There is no rebound, no guarding. MUSC/SKEL: Bilateral lower extremity lymphedema with wounds. NEURO: She is alert and oriented to person, place, and time. Mild expressive aphasia. PSYCH: She has a normal mood and affect. Behavior is normal. Judgment and thought content normal. Course Course 2201: The patient was evaluated in room B12B. A complete history and physical exam was performed Cardiac monitoring: An order was placed for continuous cardiac monitoring. The monitor shows a rate of 60 with sinus rhythm interpreted by me Patient was seen during a time of extreme volume and extreme acuity in the emergency department. Nursing triage protocols were initiated and labs were drawn by protocol in the triage area. In triage the patient had a tympanic temperature which was within normal limits. Patient is cold to touch. Patient was rolled and a rectal temperature was obtained which showed that she was 31.2 C. Patient was started on David hugger. Additional sepsis labs will be ordered. Antibiotics will be ordered. Patient's blood pressure is stable at this time. Gentle hydration will be ordered for the patient. 0135: Patient on David hugger. Blood pressure and heart rate stable. CT of the head showed hydrocephalus known to the patient. CT angiogram head and neck is negative. Labs show white blood cell count 4.16 hemoglobin 11 platelet count 96 coagulation studies within normal limits. Venous pH 7.35 venous pCO2 58. BUN 43 creatinine 0.55. AST 212 ALT 222 alkaline phosphatase 137 lipase 168. Lactic acid 1. Procalcitonin less than 0.02. Urine negative. Salicylate and Tylenol level negative. Patient will be admitted to the [facility]ist team Dr. Chan notified. Administered Medications Sodium Chloride (Nss) 1,000 mls @ 80 mls/hr IV .[id number] [facility] Stop: 02/11/24 22:29 Last Admin: 01/12/24 23:03 Dose: 80 mls/hr Documented By: BMK Discontinued Medications Cefepime HCl 2,000 mg/ Syringe 20 mls @ 5 mls/min IV NOW STA; Protocol Stop: 01/12/24 22:42 Last Admin: 01/12/24 23:04 Dose: 5 mls/min Documented By: DENZEL Ioversol (Optiray 320 125ml) 117 ml IV ONCE ONE Stop: 01/12/24 20:23 Last Admin: 01/12/24 20:22 Dose: 117 ml Documented By: SIRENA Critical Care Time Critical Care Time: Yes Total Critical Care Time: 72 I have personally spent greater than 72 minutes of critical care time in the direct management of this patient. This includes bedside care, interpretation of diagnostic studies, and testing, discussion with consultants, patient, and family members, and other required patient management activities. This 72 minutes is in excess of all separately billable procedures. Medical Decision Making Medical Records Attestation: I reviewed the patient's medical records. External medical records reviewed. Patient has a history of hydrocephalus dating back to CT imaging in 2020 Patient was seen in the emergency department in December 2022. At that time she was found to be hypothermic and was admitted to the [facility] service. She was admitted from December 25 of January 04, 2023. While in the hospital during that admission the patient had elevated liver enzymes. Patient was seen by GI Dr. Childress and had an ERCP done which was essentially negative. The patient's transaminitis was thought to be due to her medications according to Dr. Childress's note. Laboratory Data Attestation: I reviewed the patient's lab results. 01/12/24 18:44 01/12/24 18:44 Lab Results 01/12/24 01/12/24 01/12/24 Range/Units 18:44 18:45 20:58 WBC 4.16 L (4.8-10.8) K/ul RBC 3.73 L (4.20-5.40) M/uL Hgb 11.0 L (12.0-16.0) g/dl Hct 34.4 L (37.0-47.0) % MCV 92.2 (80.0-100.0) fL MCH 29.5 (25.0-34.0) pg MCHC 32.0 (32.0-36.0) g/dL RDW Std Deviation 57.3 H (36.4-46.3) fL RDW Coeff of Deanna 17.1 H (11.5-14.5) % Plt Count 96 L (130-400) K/uL MPV 11.4 (9.4-12.4) fL Immature Gran % (Auto) 0.2 % Neut % (Auto) 64.5 % Lymph % (Auto) 25.0 % [place]ador % (Auto) 6.5 % Eos % (Auto) 3.1 % Baso % (Auto) 0.7 % Neut # (Auto) 2.68 (1.40-6.50) K/uL Lymph # (Auto) 1.04 L (1.20-3.40) K/uL [place] # (Auto) 0.27 (0.11-0.59) K/uL Eos # (Auto) 0.13 (0.00-0.50) K/uL Baso # (Auto) 0.03 (0.00-0.20) K/uL Immature Gran # (Auto) 0.01 (0.01-0.20) K/uL PT 11.2 (9.0-12.0) Seconds INR 1.0 (0.9-1.1) APTT 37 H (21-31) Seconds PTT Ratio 1.3 VBG pH (7.36-7.41) VBG pCO2 (38-50) mmHg VBG pO2 mmHg VBG HCO3 mmol/L VBG O2 Saturation % VBG Base Excess mEq/L Sodium 141 (136-145) mmol/L Potassium 4.4 (3.5-5.1) mmol/L Chloride 105 (98-107) mmol/L Carbon Dioxide 30 (21-32) mmol/L Anion Gap 6 (3-11) BUN 43 H (6-23) mg/dl Creatinine 0.55 L (0.6-1.2) mg/dl Est Cr Clr Drug Dosing Not Reportable Est GFR ( Amer) 108.6 ml/min Est GFR (Non-Af Amer) 93.7 ml/min BUN/Creatinine Ratio 78.2 H (10-20) Glucose 160 H (70-99(Fasting)) mg/dl Lactate (0.4-2.0) mmol/L Calcium 9.9 (8.6-10.3) mg/dl Magnesium 2.0 (1.7-2.4) mg/dl Total Bilirubin 0.6 (0.2-1.0) mg/dl AST 212 H (13-39) U/L ALT 222 H (7-52) U/L Alkaline Phosphatase 137 H (34-104) U/L Ammonia (18-72) umol/L Total Creatine Kinase 58 (26-192) U/L Troponin I High Sens 10.9 (0-14) pg/ml Total Protein 7.5 (6.0-8.3) gm/dl Albumin 4.1 (3.4-5.0) gm/dl Globulin 3.4 (2.5-4.0) gm/dl Albumin/Globulin Ratio 1.2 (0.9-2) Lipase 168 H (11-82) U/L Procalcitonin < 0.02 (0-0.5) ng/ml Urine Color Yellow Urine Appearance Clear (Clear) Urine pH 5.5 (4.5-7.5) Ur Specific [place] 1.018 (1.000-1.030) Urine Protein Negative (Negative) Urine Glucose (UA) Negative (Negative) Urine Ketones Negative (Negative) Urine Blood Negative (Negative) Urine Nitrite Negative (Negative) Urine Bilirubin Negative (Negative) Urine Urobilinogen Negative (Negative) Ur Leukocyte Esterase Negative (Negative) Salicylates (3.0-30) mg/dl Acetaminophen (10-30) ug/ml Blood Type O Positive Antibody Screen NEGATIVE 01/12/24 01/12/24 Range/Units 22:25 22:57 WBC (4.8-10.8) K/ul RBC (4.20-5.40) M/uL Hgb (12.0-16.0) g/dl Hct (37.0-47.0) % MCV (80.0-100.0) fL MCH (25.0-34.0) pg MCHC (32.0-36.0) g/dL RDW Std Deviation (36.4-46.3) fL RDW Coeff of Deanna (11.5-14.5) % Plt Count (130-400) K/uL MPV (9.4-12.4) fL Immature Gran % (Auto) % Neut % (Auto) % Lymph % (Auto) % [place] % (Auto) % Eos % (Auto) % Baso % (Auto) % Neut # (Auto) (1.40-6.50) K/uL Lymph # (Auto) (1.20-3.40) K/uL [place] # (Auto) (0.11-0.59) K/uL Eos # (Auto) (0.00-0.50) K/uL Baso # (Auto) (0.00-0.20) K/uL Immature Gran # (Auto) (0.01-0.20) K/uL PT (9.0-12.0) Seconds INR (0.9-1.1) APTT (21-31) Seconds PTT Ratio VBG pH 7.35 L (7.36-7.41) VBG pCO2 58 H (38-50) mmHg VBG pO2 35 mmHg VBG HCO3 32 mmol/L VBG O2 Saturation < 60.0 % VBG Base Excess 4.7 mEq/L Sodium (136-145) mmol/L Potassium (3.5-5.1) mmol/L Chloride (98-107) mmol/L Carbon Dioxide (21-32) mmol/L Anion Gap (3-11) BUN (6-23) mg/dl Creatinine (0.6-1.2) mg/dl Est Cr Clr Drug Dosing Est GFR ( Amer) ml/min Est GFR (Non-Af Amer) ml/min BUN/Creatinine Ratio (10-20) Glucose (70-99(Fasting)) mg/dl Lactate 1.0 (0.4-2.0) mmol/L Calcium (8.6-10.3) mg/dl Magnesium (1.7-2.4) mg/dl Total Bilirubin (0.2-1.0) mg/dl AST (13-39) U/L ALT (7-52) U/L Alkaline Phosphatase (34-104) U/L Ammonia 32.0 (18-72) umol/L Total Creatine Kinase (26-192) U/L Troponin I High Sens (0-14) pg/ml Total Protein (6.0-8.3) gm/dl Albumin (3.4-5.0) gm/dl Globulin (2.5-4.0) gm/dl Albumin/Globulin Ratio (0.9-2) Lipase (11-82) U/L Procalcitonin (0-0.5) ng/ml Urine Color Urine Appearance (Clear) Urine pH (4.5-7.5) Ur Specific [place] (1.000-1.030) Urine Protein (Negative) Urine Glucose (UA) (Negative) Urine Ketones (Negative) Urine Blood (Negative) Urine Nitrite (Negative) Urine Bilirubin (Negative) Urine Urobilinogen (Negative) Ur Leukocyte Esterase (Negative) Salicylates < 3.0 L (3.0-30) mg/dl Acetaminophen < 3 L (10-30) ug/ml Blood Type Antibody Screen Imaging Data Attestation: I personally reviewed and interpreted this imaging study as follows: My Impression: No significant change from the chest x-ray in December 2022. Radiologist's Impression: Head CT 01/12/24 18:35 Exam(s): CT HEAD Without Contrast EXAM: CT Head Without Intravenous Contrast CLINICAL HISTORY: Reason for exam: neuro deficit,. TECHNIQUE: Axial computed tomography images of the head/brain without intravenous contrast. CTDI is 67.31 mGy and DLP is 1098.96 mGy-cm. Automated exposure control was utilized for the study. A dose lowering technique was utilized adhering to the principles of ALARA. COMPARISON: No relevant prior studies available. FINDINGS: Brain: Global age-related cerebral atrophy. 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 No significant white matter disease. No acute intracranial bleed. Midline shift: No midline shift. Ventricles: Dilated ventricles, consistent with hydrocephalus. Bones/joints: Unremarkable. No acute fracture. Soft tissues: Unremarkable. Sinuses: Unremarkable as visualized. No acute sinusitis. Mastoid air cells: Unremarkable as visualized. No mastoid effusion. IMPRESSION: 1. Dilated ventricles, consistent with hydrocephalus. 2. No acute intracranial bleed. 3. 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 Electronically signed by: Froylan Ferrer MD 01/12/24 20:50 PM Head CTA 01/12/24 18:35 Exam(s): CTA HEAD With Contrast IV Amt: 117 ML OPTIRAY 320 EXAM: CT Angiography Head With Intravenous Contrast CLINICAL HISTORY: Reason for exam: euro deficit,. TECHNIQUE: Axial computed tomographic angiography images of the head with intravenous contrast. CTDI is 16.61 mGy and DLP is 8.3 mGy-cm. Automated exposure control was utilized for the study. A dose lowering technique was utilized adhering to the principles of ALARA. MIP reconstructed images were created and reviewed. CONTRAST: Patient received 117 ML OPTIRAY 320 of IV contrast COMPARISON: No relevant prior studies available. FINDINGS: Right internal carotid artery: No acute findings. Intracranial segment is patent with no significant stenosis. No aneurysm. Right anterior cerebral artery: Unremarkable. No occlusion or significant stenosis. No aneurysm. Right middle cerebral artery: Unremarkable. No occlusion or significant stenosis. No aneurysm. Right posterior cerebral artery: Unremarkable. No occlusion or significant stenosis. No aneurysm. Left internal carotid artery: No acute findings. Intracranial segment is patent with no significant stenosis. No aneurysm. Left anterior cerebral artery: Unremarkable. No occlusion or significant stenosis. No aneurysm. Left middle cerebral artery: Unremarkable. No occlusion or significant stenosis. No aneurysm. Left posterior cerebral artery: Unremarkable. No occlusion or significant stenosis. No aneurysm. Atherosclerotic changes of the cavernous carotid arteries. IMPRESSION: No large vessel occlusion. Electronically signed by: Froylan Ferrer MD 01/12/24 20:53 PM Neck CTA 01/12/24 18:35 Exam(s): CTA NECK With Contrast IV Amt: 117 ML OPTIRAY 320 EXAM: CT Angiography Neck With Intravenous Contrast CLINICAL HISTORY: Reason for exam: euro deficit,. TECHNIQUE: Routine carotid CT angiography protocol was performed with intravenous contrast. NASCET criteria using the distal ICAs for comparison were used for evaluation of stenoses. CTDI is 14.67 mGy and DLP is 513.96 mGy-cm. Automated exposure control was utilized for the study. A dose lowering technique was utilized adhering to the principles of ALARA. MIP reconstructed images were created and reviewed. CONTRAST: Patient received 117 ML OPTIRAY 320 of IV contrast COMPARISON: None. FINDINGS: VASCULATURE: Right common carotid artery: Unremarkable. No occlusion or significant stenosis. No dissection. Right internal carotid artery: Unremarkable. Extracranial segment is patent with no occlusion or significant stenosis. No dissection. Right external carotid artery: Unremarkable. No occlusion. Right vertebral artery: Unremarkable. No occlusion or significant stenosis. No dissection. Left common carotid artery: Unremarkable. No occlusion or significant stenosis. No dissection. Left internal carotid artery: Unremarkable. Extracranial segment is patent with no occlusion or significant stenosis. No dissection. Left external carotid artery: Unremarkable. No occlusion. Left vertebral artery: Unremarkable. No occlusion or significant stenosis. No dissection. Atherosclerotic changes of the carotid bifurcations and vertebral artery V4 segments. IMPRESSION: No large vessel occlusion. Electronically signed by: Froylan Ferrer MD 01/12/24 20:52 PM ECG Data Attestation: I personally reviewed and interpreted this ECG as follows: Rate (beats per minute): 59 Rhythm: + normal sinus ECG Intervals/blocks: + Normal QRS, + Normal GA and + Normal QT-c ECG ST segments: + Normal ST segments [facility] Narrative 2202: The patient was evaluated in room B12B. A complete history and physical exam was performed Cardiac monitoring: An order was placed for continuous cardiac monitoring. The monitor shows a rate of 60 with sinus rhythm interpreted by me Patient was seen during a time of extreme volume and extreme acuity in the emergency department. Nursing triage protocols were initiated and labs were drawn by protocol in the triage area. In triage the patient had a tympanic temperature which was within normal limits. Patient is cold to touch. Patient was rolled and a rectal temperature was obtained which showed that she was 31.2 C. Patient was started on David hugger. Additional sepsis labs will be ordered. Antibiotics will be ordered. Patient's blood pressure is stable at this time. Gentle hydration will be ordered for the patient. 0135: Patient on David hugger. Blood pressure and heart rate stable. CT of the head showed hydrocephalus known to the patient. CT angiogram head and neck is negative. Labs show white blood cell count 4.16 hemoglobin 11 platelet count 96 coagulation studies within normal limits. Venous pH 7.35 venous pCO2 58. BUN 43 creatinine 0.55. AST 212 ALT 222 alkaline phosphatase 137 lipase 168. Lactic acid 1. Procalcitonin less than 0.02. Urine negative. Salicylate and Tylenol level negative. Patient will be [facility] hospitalist team Dr. Chan notified. Impression & Plan Hypothermia, Transaminitis Discharge Plan Visit Data Chief Complaint: Confusion Stated Complaint: CONFUSED ED Provider: Tien Angeles Discharge Problem: Hypothermia, Transaminitis Patient Disposition: Admitted As Inpatient Forms Stand Alone Forms: My [facility] Prescriptions Prescriptions: No Action pantoprazole 40 mg tablet,delayed release (DR/EC) 40 mg PO DAILY cholecalciferol (vitamin D3) 25 mcg (1,000 unit) Capsule 1,000 unit PO QAM Qty: 30 0RF (DME) Oxygen Home E0424 Liters Per Minute See Rx Instructions .ROUTE .MEDSUPPLY Qty: 1 0RF Rx Instructions: As directed - 2 L NC O2 at bedtime & with naps amlodipine [Norvasc] 5 mg Tablet 5 mg PO QAM Qty: 30 2RF aspirin 81 mg Tablet,Delayed Release (Dr/Ec) 81 mg PO QAM Qty: 90 3RF Rx Instructions: purchase [id number] anastrozole 1 mg tablet 1 mg PO DAILY levothyroxine 50 mcg tablet 50 mcg PO DAILY sertraline 50 mg tablet 50 mg PO DAILY atorvastatin 40 mg tablet 40 mg PO UD Referrals Referrals: Fartun Frank PA-C [Primary Care Provider] -
[2024-01-13 00:38] LABS: Acetaminophen < 3 ug/ml (10-30); Salicylate < 3.0 mg/dl (3.0-30)
--- NOTE | 2024-01-13 02:29 | History & Physical Report ---
Date of Service January 13, 2024 Assessment & Plan (1) Transaminitis: (2) Hypothermia: (3) Unstageable pressure ulcer: (4) Cellulitis: (5) Osteomyelitis: (6) Lymphedema: (7) Hypothyroidism: (8) Paraplegia: Plan Cellulitis Pressure ulcers -Patient with history of cellulitis. And has had previous altered mental status with cellulitis. -Started on cefepime and Flagyl which she was on previously on admissions. -Should consider infectious disease consultation in the morning. -Wound care consult placed. -Blood cultures pending. -Has previously had to have debridement. Will hold off on any consultation at this time. Transaminitis -AST and ALT in the 200s. Alk phos high at 137. -Has had previous AST and ALT's above 1000. Though this was thought to be due to Rocephin. -Had a full workup with acute hepatitis panel, CMV, and EBV titers which were all negative on previous admissions. -PT/INR ordered for the a.m. -Had MRCP, liver ultrasound, n.p.o. Dopplers last admission. -EUS also performed at last admission. -Will order right upper quadrant ultrasound at time of admission and defer further workup and consultation at this time. Osteomyelitis: -History of chronic osteomyelitis. -Records indicate she previously had chronic osteomyelitis of the right ischium and right hip. -She had had a right ischial decubitus ulcer in the past by report. -Follows with infectious disease. Lymphedema -Chronic/stable. Hypothyroidism -TSH added to morning labs. CAD (coronary artery disease): -H/o HTN/CAD. Paraplegia Motorized wheelchair dependent. Spina bifida With resulting paraplegia, neurogenic bladder, neurogenic bowel. -Hydrocephalus seen on CT which was also seen previously. History of Present Illness Chief Complaint: Hypothermia and transaminitis Primary Care Provider: Fartun Frank PA-C Patient is a 73-year-old female who presents to the hospital with altered mental status as well as hypothermia. Patient is alert and oriented x 2 (self and location) and was not able to tell me why she came in today. She states that she does not have any pain currently. And that she has no open wounds on her body. She is in a thermal blanket at this time. There was no family bedside at time of admission. Majority of history and physical had to be achieved from ED provider. Per ED note patient presented with altered mental status. Patient's 's report that the patient has been having difficulty speaking and finding her words for the last week. Reports that she had similar episode last year which admitted bad infection. No fevers, no nausea or vomiting. No diarrhea. No falls or traumas. No chest pain or shortness of breath. No abdominal pain. Allergies Allergy/AdvReac Type Severity Reaction Status Date / Time nalidixic acid Allergy Unknown Unknown Verified 12/15/23 13:30 Home Medications Medication Instructions Recorded Confirmed Type Oxygen Home E0424 #1 ea 05/21/21 01/13/24 Rx amlodipine 5 mg tablet (Norvasc) 5 mg PO QAM #30 tabs 05/21/21 01/13/24 Rx aspirin 81 mg tablet,delayed 81 mg PO QAM #90 tabs 05/21/21 01/13/24 Rx release pantoprazole 40 mg tablet,delayed 40 mg PO DAILY 10/20/21 01/13/24 History release anastrozole 1 mg tablet 1 mg PO DAILY 10/23/22 01/13/24 History levothyroxine 50 mcg tablet 50 mcg PO DAILY 10/23/22 01/13/24 History cholecalciferol (vitamin D3) 25 1,000 unit PO QAM #30 caps 01/01/23 01/13/24 Rx mcg (1,000 unit) capsule atorvastatin 40 mg tablet 40 mg PO UD 01/13/24 01/13/24 History sertraline 50 mg tablet 50 mg PO DAILY 01/13/24 01/13/24 History Past Med/Surg History Medical History (Updated 01/13/24 @ 12:56 by Srikanth Cerna MD) Lymphedema Hypothyroidism Cellulitis Osteomyelitis Constipation Elevated LFTs Stage IV pressure ulcer Breast cancer Ulcers of both lower extremities Elevated LFTs Heart failure CAD (coronary artery disease) History of CVA (cerebrovascular accident) Traumatic open wound of left lower leg Transaminitis Stage III pressure ulcer Severe obstructive sleep apnea Apnea Chronic cough Hypokalemia Nausea & vomiting Dehydration Pressure ulcer of left calf Stroke Meningitis spinal 2019 Lymphedema of both lower extremities HTN (hypertension) Hiatal hernia Hypertension Spina bifida (06/21/13) Paraplegia (06/21/13) Neurogenic bladder (06/21/13) Surgical History H/O bone graft H/O section Hx of cholecystectomy Family History Father Hypertension Myocardial infarction Herniated disc Mother Myocardial infarction Colorectal cancer Uterine cancer Other Family history non-contributory Social History Smoking Status: Never smoker Second Hand Exposure: No; Do You Dip or Chew Tobacco: No; Hx Alcohol Use: Yes Hx Substance Use: No Preferred Language: Belarusian Communication Ability: Effective Visual Impairment: Limited Hearing Ability: Normal Fire Extinguisher Charger Required: No Beliefs That Will Affect Care: None marital status: Current Living Situation: Spouse current occupational status: retired How many Children do You have: 2 Feels Safe at Home: Yes Diet: regular caffeine: Yes (tea) during the past year weight has: increased > 10 lbs Physical Activity Frequency: Does not Exercise Do you think of yourself as: straight/heterosexual Gender Identity: Female Assistive Devices: Scooter/Electric Scooter Review of Systems Review of Systems: Unobtainable due to cognitive status Physical Exam Physical Exam: Constitutional: well-appearing, no acute distress HEENT: NCAT, no conjunctival injection CV: regular rhythm, no murmur appreciated, extremities well-perfused, Resp: CTABL, no wheezes/rales/rhonchi appreciated, no increased work of breathing GI: soft, nondistended, nontender, BS normoactive Skin: Patient in warming blanket, unable to assess skin fully Neuro: Alert and oriented x 2, no focal neurologic deficit appreciated Results & Data Results & Data Vital Signs (Past 12 Hours) Vital Signs Temp Pulse Pulse Resp BP BP Pulse Ox 01/13/24 01:30 32.8 C L 78 20 132/63 94 01/13/24 01:00 32.5 C L 61 16 117/90 93 01/13/24 00:30 32.1 C L 71 16 128/76 94 01/13/24 00:00 31.7 C L 80 15 124/72 96 01/12/24 23:52 69 01/12/24 23:45 31.3 C L 62 15 109/87 94 01/12/24 23:15 62 16 124/70 95 01/12/24 22:45 57 L 8 L 95 01/12/24 22:45 121/77 01/12/24 22:39 31.2 C L 128/84 01/12/24 22:39 58 L 10 L 99 01/12/24 22:30 63 16 01/12/24 22:00 64 19 01/12/24 21:31 62 13 97 01/12/24 21:31 107/55 L 01/12/24 21:30 55 L 14 95 01/12/24 21:01 126/65 01/12/24 21:01 57 L 20 96 01/12/24 21:00 59 L 18 79 L 01/12/24 21:00 58 L 18 126/65 97 01/12/24 20:00 53 L 11 L 96 01/12/24 20:00 110/58 L 01/12/24 19:47 60 15 100 01/12/24 19:47 01/12/24 19:46 63 01/12/24 19:45 56 L 01/12/24 19:39 54 L 14 89 L 01/12/24 18:32 36 C L 58 L 20 136/78 98 O2 Del Method 01/13/24 01:30 Room Air 01/13/24 01:00 Room Air 01/13/24 00:30 Room Air 01/13/24 00:00 Room Air 01/12/24 23:52 01/12/24 23:45 Room Air 01/12/24 23:15 Room Air 01/12/24 22:45 01/12/24 22:45 01/12/24 22:39 01/12/24 22:39 01/12/24 22:30 01/12/24 22:00 01/12/24 21:31 01/12/24 21:31 01/12/24 21:30 01/12/24 21:01 01/12/24 21:01 01/12/24 21:00 01/12/24 21:00 Room Air 01/12/24 20:00 01/12/24 20:00 01/12/24 19:47 Room Air 01/12/24 19:47 Room Air 01/12/24 19:46 01/12/24 19:45 01/12/24 19:39 01/12/24 18:32 Room Air Supervising Physician Co-Signing Physician Notes Attending addendum: I have physically seen this patient, have supervised the medical residents activities, and agree with the H&P unless as otherwise noted. Assessment and Plan: Pressure ulcers with cellulitis/history of chronic pelvic and right hip osteomyelitis- Cefepime 200 g IV every 12 hours Flagyl 500 mg IV every 8 hours Follow wound culture and sensitivity Follow blood cultures Consult wound care History of debridement in the past Consult infectious disease Transaminitis- AST 212 and ALT 222 She had an extensive workup in December 2022 for similar process where liver enzymes were significantly worse, it was thought to be medication related Repeat laboratories in a.m. Order right upper quadrant ultrasound for now to assess for possible gallbladder cholestasis Paraplegia/spina bifida/hydrocephalus- Imaging stable Continue supportive medications and treatments (4) Cellulitis Site of cellulitis: unspecified site Qualified Code(s): L03.90 - Cellulitis, unspecified (5) Osteomyelitis Osteomyelitis location: unspecified site Osteomyelitis type: unspecified type Qualified Code(s): M86.9 - Osteomyelitis, unspecified
[2024-01-13] MEDS ORDERED: POLYETHYLENE (MIRALAX) 17 GM PACK PO PRN (03:16)
[2024-01-13] MEDS ORDERED: ACETAMINOPHEN 325 MG TAB PO PRN (03:16)
[2024-01-13] MEDS: metroNIDAZOLE 500 MG/100 ML BAG IV SCH (03:42)
--- NOTE | 2024-01-13 04:09 | Ultrasound Report ---
Exam(s): US LIVER EXAM: US Abdomen Limited CLINICAL HISTORY: Reason for exam: transaminitis. TECHNIQUE: Real-time ultrasound of the abdomen with image documentation. COMPARISON: No relevant prior studies available. FINDINGS: Liver: 1.1 x 1.2 x 0.8 cm left hepatic lobe cyst. 0.8 cm right hepatic lobe cyst. Gallbladder: Gallbladder surgically absent. Common bile duct: Common bile duct measures 6.4 mm. Pancreas: Pancreas is not visualized secondary to overlying bowel gas. Kidneys: Multiple right renal cysts largest of which measures 1.6 cm. No right hydronephrosis. IMPRESSION: No acute findings in the visualized abdomen. 1.2 cm left hepatic lobe cyst 0.8 cm right hepatic lobe cyst Right renal cyst Electronically signed by: Matthias Wilson MD 01/13/24 04:08 AM
[2024-01-13 04:48] LABS: Basophils # (auto) 0.02 K/uL (0.00-0.20); Basophils % (auto) 0.6 %; Eosinophils # (auto) 0.08 K/uL (0.00-0.50); Eosinophils % (auto) 2.2 %; Hematocrit (blood only) 29.7 % (37.0-47.0); Hemoglobin 9.6 g/dl (12.0-16.0); Immature Granulocytes # (auto) 0.01 K/uL (0.01-0.20); Immature Granulocytes % (auto) 0.3 %; Lymphocytes # (auto) 0.93 K/uL (1.20-3.40); Lymphocytes % (auto) 25.8 %; Mean Corpuscular Hemoglobin 29.4 pg (25.0-34.0); Mean Corpuscular Hgb Conc 32.3 g/dL (32.0-36.0); Mean Corpuscular Volume 90.8 fL (80.0-100.0); Mean Platelet Volume 11.7 fL (9.4-12.4); Monocytes # (auto) 0.19 K/uL (0.11-0.59); Monocytes % (auto) 5.3 %; Neutrophils # (auto) 2.37 K/uL (1.40-6.50); Neutrophils % (auto) 65.8 %; Platelet Count 78 K/uL (130-400); RDW Coefficient of Variation 16.9 % (11.5-14.5); RDW Standard Deviation 56.1 fL (36.4-46.3); Red Blood Count 3.27 M/uL (4.20-5.40)
[2024-01-13 05:01] LABS: Albumin Globulin Ratio 1.2 (0.9-2); Albumin Level 3.3 gm/dl (3.4-5.0); BUN Creatinine Ratio 90.2 (10-20); Bilirubin,Total 0.5 mg/dl (0.2-1.0); Calcium 9.1 mg/dl (8.6-10.3); Creatinine Clr Calc Pharmacy 124.5 ml/min; Est GFR (African American) 119.6 ml/min; Est GFR (Non-African American) 103.2 ml/min; Globulin 2.8 gm/dl (2.5-4.0); Potassium 4.2 mmol/L (3.5-5.1); Total Protein 6.1 gm/dl (6.0-8.3)
[2024-01-13 05:10] LABS: INR 1.1 (0.9-1.1); Partial Thromboplastin Ratio 1.3; Partial Thromboplastin Time 36 Seconds (21-31); Prothrombin Time 11.7 Seconds (9.0-12.0)
[2024-01-13 05:17] LABS: Thyroid Stimulating Hormone 7.135 uIu/ml (0.300-4.500)
[2024-01-13 05:52] LABS: T4 Free Thyroxine 0.99 ng/dl (0.61-1.60)
--- NOTE | 2024-01-13 07:48 | XRay Report ---
XR chest 1V portable HISTORY: hypothermia COMPARISON: Chest 12/25/2022. FINDINGS: There are low lung volumes. The cardiac silhouette remains mildly enlarged. There are patch y right basilar densities which have progressed. The left lung is clear. No evidence for pulmonary ed dangelo. Scoliosis again noted. No pleural effusions. No pneumothorax. IMPRESSION: Patchy right basilar densities are new compared the prior study and may represent a pneumonia. ACT 112: Negative or not required by law. Electronically signed by: Joseph Sorensen M.D. 01/13/2024 7:47 AM
[2024-01-13 07:56] LABS: C Reactive Protein 1.21 mg/dl (0-0.5)
--- NOTE | 2024-01-13 07:59 | Electrocardiogram Report ---
Test Reason : Blood Pressure : / mmHG Vent. Rate : 059 BPM Atrial Rate : 059 BPM P-R Int : 158 ms QRS Dur : 094 ms QT Int : 488 ms P-R-T Axes : 073 054 084 degrees QTc Int : 483 ms Sinus bradycardia Otherwise normal ECG When compared with ECG of 25-DEC-2022 14:26, No significant change was found Confirmed by Ramone Galeas ([id number]) on 01/13/2024 7:58:46 AM Referred By: REFERRED SELF Confirmed By:Will Galeas
[2024-01-13] MEDS: ANASTROZOLE 1 MG TAB PO SCH (09:49)
[2024-01-13] MEDS: SERTRALINE HCL 50 MG TABLET PO SCH (09:54)
[2024-01-13] MEDS: PANTOprazole 40 MG TAB PO SCH (09:55)
[2024-01-13] MEDS: amLODIPine BESYLATE 5 MG TAB PO SCH (09:56)
[2024-01-13] MEDS: CEFEPIME 2,000 MG in SYRINGE 0 ML IV SCH (09:59)
[2024-01-13] MEDS: ENOXAPARIN INJ 40 MG/0.4 ML SYR SQ SCH (10:00)
[2024-01-13] MEDS: CEFEPIME 2,000 MG/20 ML VIAL ONE (10:49)
--- NOTE | 2024-01-13 12:51 | Hospitalist Progress Note ---
Date of Service January 13, 2024 Assessment & Plan (1) Metabolic encephalopathy: Plan: Supportive care. Treat underlying infectious process. Avoid CROCHETER depressants (2) Hypothermia: Plan: Warming blanket as needed. (3) Pseudomonas infection: Plan: Currently on Zosyn and Flagyl. Await culture results (4) Spina bifida: Plan: Congenital with paraplegia. Supportive care (5) Open wound of left thigh: Plan: Known chronic osteomyelitis. Local care Plan To be determined Admission and Anticipated Discharge Date Admission Date: January 13, 2024 Subjective Alert but depressed. No acute distress Review of Systems 2 Review of Systems: Constitutional-no fever or chills ENT-no blurred vision, no double vision, no epistaxis, no sore throat Respiratory-no cough, no wheezing, no shortness of breath Cardiac-no palpitations, no chest pain, no syncope GI-no nausea, vomiting, diarrhea, melena, hematochezia -no urinary retention, no urinary incontinence, no dysuria, no hematuria Musculoskeletal-no joint pain, no muscle tenderness Skin-no bruising, no rashes, no pruritus Neuro-chronic paraplegia from history of spina bifida Psych-depressed affect Physical Exam 2 Physical Exam: General-alert and oriented x3, no fever, no chills HEENT-head atraumatic and normocephalic, pupils equal and reactive to light, extraocular muscles intact Neck-no lymphadenopathy or thyromegaly, trachea midline Chest-clear to auscultation anteriorly. No rales, wheezing or rhonchi Cardiac-regular rate and rhythm, normal S1 and S2 Abdomen-normal bowel sounds, nontender, no hepatosplenomegaly Extremities-chronic appearing edema and stasis dermatitis both lower extremities Neuro-congenital paraplegia from spinal bifida. Cranial nerves intact. Psych-depressed affect Results & Data Results & Data Vital Signs (Past 12 Hours) Vital Signs Temp Pulse Pulse Resp BP BP Pulse Ox 01/13/24 12:00 109 H 24 140/73 92 01/13/24 11:30 102 H 24 130/68 93 01/13/24 11:00 105 H 33 H 124/54 L 92 01/13/24 10:30 105 H 21 123/71 91 01/13/24 10:27 01/13/24 10:00 102 H 27 H 126/67 90 01/13/24 09:30 113 H 30 H 139/65 91 01/13/24 09:00 112 H 29 H 128/64 89 L 01/13/24 08:30 111 H 28 H 136/73 93 01/13/24 08:23 36.6 C 01/13/24 08:00 106 H 21 146/62 H 92 01/13/24 07:41 97 H 01/13/24 07:30 101 H 20 101/68 93 01/13/24 07:00 104 H 27 H 146/76 H 92 01/13/24 06:33 35.6 C L 01/13/24 06:31 85 18 148/69 H 95 01/13/24 06:01 111 H 11 L 143/75 H 94 01/13/24 06:00 106 H 14 91 01/13/24 05:50 35.2 C L 01/13/24 05:01 105 H 17 130/95 95 01/13/24 04:50 34.4 C L 01/13/24 04:31 97 H 23 111/64 94 01/13/24 04:30 91 H 16 111/64 98 01/13/24 04:00 92 H 15 99/66 L 97 01/13/24 03:51 33.5 C L 63 14 118/60 98 01/13/24 03:47 01/13/24 03:00 33.3 C L 01/13/24 02:28 33.3 C L 80 16 146/69 H 96 01/13/24 01:30 32.8 C L 78 20 132/63 94 01/13/24 01:00 32.5 C L 61 16 117/90 93 Pulse Ox O2 Del Method O2 Flow Rate 01/13/24 12:00 01/13/24 11:30 01/13/24 11:00 01/13/24 10:30 01/13/24 10:27 Nasal Cannula 2 01/13/24 10:00 01/13/24 09:30 01/13/24 09:00 01/13/24 08:30 01/13/24 08:23 01/13/24 08:00 01/13/24 07:41 01/13/24 07:30 01/13/24 07:00 01/13/24 06:33 01/13/24 06:31 01/13/24 06:01 01/13/24 06:00 01/13/24 05:50 01/13/24 05:01 01/13/24 04:50 01/13/24 04:31 01/13/24 04:30 Room Air 01/13/24 04:00 01/13/24 03:51 Room Air 01/13/24 03:47 96 01/13/24 03:00 01/13/24 02:28 Room Air 01/13/24 01:30 Room Air 01/13/24 01:00 Room Air Laboratory Results 01/13/24 04:25 01/13/24 04:25 PG Care Time/CCT Total # of Minutes Spent Total Time Spent with Patient: Total time spent is greater than 50% in coordination of care (as documented) at patient's floor/unit and/or counseling patient: Coding Level of Care Code 65348 SUB INP/OBS CARE 3/50MIN Diagnoses Metabolic encephalopathy G93.41 Hypothermia T68.XXXA Pseudomonas infection A49.8 Spina bifida, unspecified hydrocephalus presence, unspecified spinal region Q05.9 Spinal region: unspecified Presence of hydrocephalus: unspecified hydrocephalus presence Open wound of left thigh S71.102A (4) Spina bifida Spinal region: unspecified Presence of hydrocephalus: unspecified hydrocephalus presence Qualified Code(s): Q05.9 - Spina bifida, unspecified
--- NOTE | 2024-01-13 12:57 | Hospitalist Progress Note ---
Date of Service January 13, 2024 Assessment & Plan (1) Metabolic encephalopathy: Plan: Supportive care. Treat underlying infectious process. Avoid REHABILITATION PROGRAM COORDINATOR depressants (2) Hypothermia: Plan: Warming blanket as needed. (3) Pseudomonas infection: Plan: Currently on Zosyn and Flagyl. Await culture results (4) Spina bifida: Plan: Congenital with paraplegia. Supportive care (5) Open wound of left thigh: Plan: Known chronic osteomyelitis. Local care Plan To be determined Admission and Anticipated Discharge Date Admission Date: January 13, 2024 Subjective Awake and alert. She appears depressed however. Will switch cefepime to Zosyn due to her history of Pseudomonas in the past. She is also on Flagyl. Day 1 of antibiotics. Usual oral medications have been ordered. Daily lab studies have been ordered. Review of Systems 2 Review of Systems: Constitutional-no fever or chills ENT-no blurred vision, no double vision, no epistaxis, no sore throat Respiratory-no cough, no wheezing, no shortness of breath Cardiac-no palpitations, no chest pain, no syncope GI-no nausea, vomiting, diarrhea, melena, hematochezia -no urinary retention, no urinary incontinence, no dysuria, no hematuria Musculoskeletal-no joint pain, no muscle tenderness Skin-no bruising, no rashes, no pruritus Neuro-chronic paraplegia from history of spina bifida Psych-depressed affect Physical Exam 2 Physical Exam: General-alert and oriented x3, no fever, no chills HEENT-head atraumatic and normocephalic, pupils equal and reactive to light, extraocular muscles intact Neck-no lymphadenopathy or thyromegaly, trachea midline Chest-clear to auscultation anteriorly. No rales, wheezing or rhonchi Cardiac-regular rate and rhythm, normal S1 and S2 Abdomen-normal bowel sounds, nontender, no hepatosplenomegaly Extremities-chronic appearing edema and stasis dermatitis both lower extremities Neuro-congenital paraplegia from spinal bifida. Cranial nerves intact. Psych-depressed affect Results & Data Results & Data Vital Signs (Past 12 Hours) Vital Signs Temp Pulse Pulse Resp BP BP Pulse Ox 01/13/24 12:00 109 H 24 140/73 92 01/13/24 11:30 102 H 24 130/68 93 01/13/24 11:00 105 H 33 H 124/54 L 92 01/13/24 10:30 105 H 21 123/71 91 01/13/24 10:27 01/13/24 10:00 102 H 27 H 126/67 90 01/13/24 09:30 113 H 30 H 139/65 91 01/13/24 09:00 112 H 29 H 128/64 89 L 01/13/24 08:30 111 H 28 H 136/73 93 01/13/24 08:23 36.6 C 01/13/24 08:00 106 H 21 146/62 H 92 01/13/24 07:41 97 H 01/13/24 07:30 101 H 20 101/68 93 01/13/24 07:00 104 H 27 H 146/76 H 92 01/13/24 06:33 35.6 C L 01/13/24 06:31 85 18 148/69 H 95 01/13/24 06:01 111 H 11 L 143/75 H 94 01/13/24 06:00 106 H 14 91 01/13/24 05:50 35.2 C L 01/13/24 05:01 105 H 17 130/95 95 01/13/24 04:50 34.4 C L 01/13/24 04:31 97 H 23 111/64 94 01/13/24 04:30 91 H 16 111/64 98 01/13/24 04:00 92 H 15 99/66 L 97 01/13/24 03:51 33.5 C L 63 14 118/60 98 01/13/24 03:47 01/13/24 03:00 33.3 C L 01/13/24 02:28 33.3 C L 80 16 146/69 H 96 01/13/24 01:30 32.8 C L 78 20 132/63 94 01/13/24 01:00 32.5 C L 61 16 117/90 93 Pulse Ox O2 Del Method O2 Flow Rate 01/13/24 12:00 01/13/24 11:30 01/13/24 11:00 01/13/24 10:30 01/13/24 10:27 Nasal Cannula 2 01/13/24 10:00 01/13/24 09:30 01/13/24 09:00 01/13/24 08:30 01/13/24 08:23 01/13/24 08:00 01/13/24 07:41 01/13/24 07:30 01/13/24 07:00 01/13/24 06:33 01/13/24 06:31 01/13/24 06:01 01/13/24 06:00 01/13/24 05:50 01/13/24 05:01 01/13/24 04:50 01/13/24 04:31 01/13/24 04:30 Room Air 01/13/24 04:00 01/13/24 03:51 Room Air 01/13/24 03:47 96 01/13/24 03:00 01/13/24 02:28 Room Air 01/13/24 01:30 Room Air 01/13/24 01:00 Room Air Laboratory Results 01/13/24 04:25 01/13/24 04:25 PG Care Time/CCT Total # of Minutes Spent Total Time Spent with Patient: Total time spent is greater than 50% in coordination of care (as documented) at patient's floor/unit and/or counseling patient: Coding Level of Care Code 15345 SUB INP/OBS CARE 3/50MIN Diagnoses Metabolic encephalopathy G93.41 Hypothermia T68.XXXA Pseudomonas infection A49.8 Spina bifida, unspecified hydrocephalus presence, unspecified spinal region Q05.9 Spinal region: unspecified Presence of hydrocephalus: unspecified hydrocephalus presence Open wound of left thigh S71.102A (4) Spina bifida Spinal region: unspecified Presence of hydrocephalus: unspecified hydrocephalus presence Qualified Code(s): Q05.9 - Spina bifida, unspecified
[2024-01-13] MEDS: ONDANSETRON INJ 2 MG/ML 2 ML VIAL IV PRN (13:04)
[2024-01-13] MEDS: ASPIRIN 81 MG ECTAB PO SCH (13:21)
[2024-01-13] MEDS: PIPER/TAZO 4.5g in D5W MINI-B 100 ML IV ONE (14:13)
[2024-01-13] MEDS: ALBUT/IPRATROP 3MG/0.5MG NEB 3 ML VIAL NEB STA (14:33)
[2024-01-13 14:54] LABS: Base Excess ABG 1.7 mEq/L (-9-1.8); HCO3 ABG 28 mmol/L (19-24); Oxygen Saturation ABG 92.2 % (90-95); PCO2 ABG 48 mmHg (35-46); PO2 ABG 64 mmHg (80-95); pH ABG 7.37 (7.35-7.45)
[2024-01-13 15:01] LABS: Allen Test Pos (Pos)
[2024-01-13] MEDS: ALBUT/IPRATROP 3MG/0.5MG NEB 3 ML VIAL ONE (15:11)
[2024-01-13] MEDS: ALBUT/IPRATROP 3MG/0.5MG NEB 3 ML VIAL NEB SCH (15:12)
--- NOTE | 2024-01-13 15:24 | XRay Report ---
XR chest 1V portable CLINICAL HISTORY: hypoxic, aspiration COMPARISON STUDY: Chest CT May 20, 2021 chest radiograph January 13, 2024. FINDINGS: Evaluation is compromised given difficulty positioning. Cardiomegaly is unchanged. Mediasti nal contours are stable. There is no pneumothorax. No definite pleural effusion is identified. There is pulmonary vascular congestion without overt pulmonary edema. Hazy right mid and lower lung opaciti es are present. IMPRESSION: 1. Hazy right mid and lower lung opacities. These may be artifactual however pneumonia could appear s imilar. 2. Cardiomegaly with pulmonary vascular congestion. No overt pulmonary edema. ACT 112: Negative or not required by law. Electronically signed by: Kwabena Montalvo M.D. 01/13/2024 3:23 PM
--- NOTE | 2024-01-13 20:49 | Billing Data ---
Date of Service January 13, 2024 Coding Level of Care Code 61821 INT INP/OBS CARE
[2024-01-13] MEDS: PIPER/TAZO 4.5g in D5W MINI-B 100 ML IV SCH (21:50)
--- OUTSIDE RECORDS SUMMARY | 2024-01-13 23:03 | External Medical Summary | Continuity of Care Document ---
Author Name Unknown Organization [place] [address] [facility] Address [address], [place] [id number] Care Team Providers Care Stock Cutter Name Role Phone Fartun Frank Primary Care Physician [phone] [phone] Date(s): 12/23/23 - 12/23/23 [facility] [id number], [address] [address] [phone] Discharge Disposition: Home or Self Care Attending Physician: MAI Frank Jessica A Allergies, Adverse Reactions, Alerts Substance Reaction Severity Status nalidixic acid Rash Active Immunizations Given and Recorded Vaccine Date Status Refusal Reason influenza virus vaccine, inactivated 09/08/23 Give n influenza virus vaccine, inactivated 09/01/22 Give n influenza virus vaccine, inactivated 1 09/01/22 Re corded influenza virus vaccine, inactivated 08/25/21 Give n influenza virus vaccine, inactivated 10/02/20 Give n influenza virus vaccine, inactivated 09/15/17 Give n influenza virus vaccine, inactivated 08/19/16 Give n SARS-CoV-2 (COVID-19) mRNA BNT-162b2 vax 2 03/06/21 Recorded SARS-CoV-2 (COVID-19) mRNA BNT-162b2 vax 3 02/13/21 Recorded tetanus/diphtheria/pertuss, acel (Tdap) 09/15/17 G iven tetanus/diphtheria/pertuss, acel (Tdap) 4 12/26/12 Recorded pneumococcal 23-valent vaccine 09/15/17 Given pneumococcal 13-valent vaccine 08/26/16 Given 1Result Comment: Route: Unknown 2Result Comment: Route: Unknown 3Result Comment: Route: Unknown 4Result Comment: Route: Unknown Medications Albuterol (Eqv-ProAir HFA) 90 mcg/inh inhalation aerosol Start: 03/08/22 14:58:00 EDT, 2 puff, inhaled, q6h, Disp# 1 each, Pharmacy: [facility] Start Date: 03/08/22 Status: Ordered amLODIPine 5 mg oral tablet Start: 08/31/23 13:11:00 EDT, 1 tab, PO, Daily, Disp# 90 tab, Refills: 3, Pharmacy: [facility] [address] Start Date: 08/31/23 Status: Ordered anastrozole 1 mg oral tablet TAKE 1 TABLET BY MOUTH ONCE DAILY Start Date: 06/16/22 Status: Ordered aspirin 81 mg oral delayed release tablet Start: 06/02/21 15:32:00 EDT, 1 tab, PO, Daily Start Date: 06/02/21 Status: Ordered atorvastatin 40 mg oral tablet Start: 04/11/23 15:45:00 EDT, See Instructions, Disp# 90 tab, Refills: 3, Take 1 tablet by mouth once daily for 90 days, Pharmacy: [facility] [address] Start Date: 04/11/23 Status: Ordered calcium (as calcium citrate) 250 mg oral tablet Start: 07/08/22 13:42:00 EDT, 1 tab, PO, bid Start Date: 07/08/22 Status: Ordered home oxygen Start: 06/02/21 15:35:00 EDT, home oxygen, 1 1/2 L qhs with CPAP Start Date: 06/02/21 Status: Ordered levothyroxine 50 mcg (0.05 mg) oral tablet Start: 12/10/22 9:27:00 EST, 1 tab, PO, Daily, Disp# 30 tab, Refills: 10, Pharmacy: [facility] [address] Start Date: 12/10/22 Stop Date: 11/05/23 Status: Ordered pantoprazole 40 mg oral delayed release tablet Start: 08/25/23 12:57:00 EDT, 1 tab, PO, Daily, Disp# 90 tab, Refills: 3, Pharmacy: [facility] [address] Start Date: 08/25/23 Status: Ordered sertraline 50 mg oral tablet Start: 12/23/23 14:32:00 EST, See Instructions, Disp# 30 tab, Refills: 1, take 0.5 tab PO daily x 1week, then increase to 1 tab PO daily, Pharmacy: [id number] Start Date: 12/23/23 Status: Ordered Vitamin D3 Start: 07/08/22 13:42:00 EDT, PO, Daily, dose unknown Start Date: 07/08/22 Status: Ordered Mental Status 12/23/23 Barriers to Learning one year Vision imp airment, Other: glasses, electric w/c Mandatory Health Literacy Documentation Yes Health Literacy Communication Barriers N ever Primary Language Bulgarian Problem List Condition Confirmation Course Effective Dates Status H ealth Status Informant CVA (cerebrovascular accident) Confirmed Active History of meningitis 1 Confirmed Active History of cerebral infarction Confirmed Active COVID-19 vaccine series completed Confirmed Active Hypertensive heart disease with heart failure Confirmed Active Non healing left heel wound Confirmed Active Invasive lobular carcinoma of right breast in female 2 Confirmed 02/24/22 Active Takotsubo cardiomyopathy Confirmed Active Lymphedema of leg Confirmed Active Multiple open wounds of lower leg Confirmed Active Neurogenic bladder Confirmed Active Neurogenic bowel Confirmed Active PARAPLEGIA Confirmed Active Right ischial pressure sore, stage 4 Confirmed Active Pressure ulcer of left ankle, stage 3 Confirmed Active Sleep apnea with use of continuous positive airway pressure (CPAP) Confirmed Active Spina Bifida Confirmed Active Subclinical hypothyroidism Confirmed Active 1as a child 2Invasive lobular carcinoma with a solid papillary carcinoma growth pattern. Estrogen receptor positive, progesterone receptor positive and HER-2 negative. Procedures Procedure Date Related Diagnosis Body Site Status Diagnostic mammogram 1 10/31/23 Co mpleted Diagnostic mammogram 2 01/13/23 Co mpleted GI ENDOSCOPIC ULTRASOUND 3 12/31/22 Completed Upper GI (gastrointestinal) endoscopy 4 12/31/22 Completed Chest x-ray 5 12/25/22 Completed Breast biopsy sample 6 02/24/22 Co mpleted Ultrasonography guided biops y of right breast 7, 8 02/24/22 Completed Diagnostic mammogram 9 02/18/22 Co mpleted Mammogram 10 02/10/22 Completed Chest x-ray 11 01/19/22 Completed Polysomnograph 12 08/29/21 Complet ed Mammogram 13 04/12/19 Completed Imaging,chest 2 view 09/15/17 Comp leted Imaging,ultrasound venous do ppler lower ext bila 09/15/17 Completed KUB X-ray 09/17/16 Completed Ultrasound,abdominal right u pper quadrant 10/28/16 Completed Colonoscopy 02/25/09 Completed skin graft to wounds 1990 Comp leted GALL BLADDER 11/21/88 Completed 11/21/86 Completed X-ray 14 11/26/54 Completed Left hip joint structure 15 Completed 1distal to the nipple No measurable mass currently identified IMPRESSION ACR Bl-RADS CATEGORY 6 KNOWN BIOPSY PROVEN MALIGNANCY, ULTRASOUND ACR BlRADS CATEGORY 6 KNOWN BIOPSY PROVEN MALIGNANCY Ribbon shaped metallic biopsy marker is seen in the medial, middle one third of the right breast mammographically, without measurable mammographic or sonographic mass in the 1 00 right breast in the area of biopsy-proven carcinoma No mammographic masses, asymmetnes or suspicious calcifications are seen elsewhere throughout the visualized right breast Continued follow-up with the patient's oncologist is recommended for definitive action of the biopsy-proven lobular carcinoma in the 1 00 right breast These results and recommendations were discussed with the patient at the time of the exam [address] [place] [address] Impression: ACR BI-RADS CATEGORY 6: KNOWN BIOPSY PROVEN MALIGNANCY, ULTRASOUND ACR BI-RADS CATEGORY6: KNOWN BIOPSY PROVEN MALIGNANCY 1. The small 4 mm previously biopsied mass in the right 1:00 breast is not clearly evident mammographically and sonographically, and is consistent with the previously biospsied malignancy. No increasing mass is noted at the biopsy site in the right 1:00 breast. Appropriate clinical action should betaken for the biopsy-proven malignancy 2. Architectural distortion with central fat density in the right 1:00 breast posterior to the biopsy clip. This has the appearance of benign fat necrosis and is most likely related to the prior ultrasound-guided biopsy and previous large postbiopsy hematoma 3. No mammographic evidence of malignancy in the left breast. Recommend annual mammography in [address] [place] [address] Impression: 1. Evidence of a cholecystectomy 2. There was no sign of significant pathology in the common bile duct 3. There was abnormal echogenicity in the visualized portion of the liver. This was hyperechoic. Tissue has not been obtained. However the endosonographic appearance is consistent with fatty infiltration 4. There was no sign of significant pathology in the entire pancreas 5. Endosonographic images of the left adrenal gland were unremarkable 6. No specimens collected 4[facility] Impression: 1. Normal esophagus 2. Normal stomach 3. Normal examined duodenum 4. No specimens collected 5[facility] Impression: 1. No acute process 6right [facility] 7[facility] 8Pathology: Invasive lobular carcinoma with a solid papillary carcinoma growth pattern. Histologic grade: Low. Tubules; 3/3. Nuclei: 1/3. Mitoses: 1/3. Greatest linear extent: 3 mm. In situ component:Present. Microcalcifications: Not identified 9[facility] Impression: ACR-BI-RADS CATEGORY 4: SUSPICIOUS, ULTRASOUND CATEGORY 4: SUSPICIOUS 1. Hypoechoic noncircumscribed 4 mm mass in the right 1:00 breast on ultrasound, thought to correspond with a persistent mammographic focal asymmetry. The finding is indeterminate for malignancy and ultrasound-guided core needle biopsy is recommended. 10[facility] Impression: ACR BI-RADS CATEGORY 0: INCOMPLETE, NEED ADDITIONAL IMAGING 1. The 4 mm focal asymmetry in the central/retroareolar right breast needs additional evaluation 11[facility] Impression: 1. Cardiomegaly with elevation of the left hemidiaphragm. No definite infiltrate. No acute disease noted 12[facility] Impression: 1. Physiologic events consistent with severe obstructive sleep apnea with frequent hypopneas and apneas 13there is no mammographic evidence of malignancy 14xr knee lt 2v routine small joint effusion without acute fracture or dislocation mild degenerative changes 15born with hip dislocation, surgically placed into socket at age 9y Social History Social History Type Response Smoking Status Never smoked cigaret nakia Sex Female Patient Care team information Care Team Personnel Name: MAI Austin Lynn Position: Physician Osha Inspector Exempt - [facility] Surg Member Role: Lifetime Relationship Address: Address: [address] [place] [id number] [place] Name: MD Patti, Gabriella Daniel Position: Physician - Surgery Oncology Member Role: Lifetime Relationship Address: Address: [address] [place] [address] [place] Name: MAI Frank Jessica A Position: Physician Asst Exmpt - Family Med Member Role: Primary Care Provider Address: Address: [address] [place] [id number] [place] Care Team Related Persons Name: OXANA DIAZ Address: home [address] [place] [address]
[2024-01-14] MEDS: LEVOTHYROXINE SODIUM 50 MCG TABLET PO SCH (03:11)
[2024-01-14 08:00] LABS: BUN Creatinine Ratio 72.5 (10-20); Calcium 8.6 mg/dl (8.6-10.3); Creatinine Clr Calc Pharmacy 100.5 ml/min; Est GFR (African American) 111.3 ml/min; Est GFR (Non-African American) 96.1 ml/min
[2024-01-14 08:25] LABS: Basophils # (auto) 0.02 K/uL (0.00-0.20); Basophils % (auto) 0.2 %; Hematocrit (blood only) 31.9 % (37.0-47.0); Hemoglobin 10.5 g/dl (12.0-16.0); Immature Granulocytes # (auto) 0.01 K/uL (0.01-0.20); Immature Granulocytes % (auto) 0.1 %; Lymphocytes % (auto) 3.1 %; Mean Corpuscular Hemoglobin 30.5 pg (25.0-34.0); Mean Corpuscular Hgb Conc 32.9 g/dL (32.0-36.0); Mean Corpuscular Volume 92.7 fL (80.0-100.0); Mean Platelet Volume 12.8 fL (9.4-12.4); Monocytes # (auto) 0.28 K/uL (0.11-0.59); Monocytes % (auto) 2.9 %; Neutrophils # (auto) 9.01 K/uL (1.40-6.50); Neutrophils % (auto) 93.7 %; Platelet Count 98 K/uL (130-400); RDW Coefficient of Variation 17.6 % (11.5-14.5); RDW Standard Deviation 60.3 fL (36.4-46.3); Red Blood Count 3.44 M/uL (4.20-5.40); White Blood Count 9.62 K/ul (4.8-10.8)
[2024-01-14] MEDS: FUROSEMIDE 40 MG/4 ML VIAL IV ONE (11:03)
--- NOTE | 2024-01-14 14:40 | Hospitalist Progress Note ---
Date of Service January 14, 2024 Assessment & Plan (1) Metabolic encephalopathy: Plan: Supportive care. Treat underlying infectious process. Avoid [employer] HAND depressants (2) Hypothermia: Plan: Warming blanket as needed. Now resolved (3) Acute CHF (congestive heart failure): Plan: Suspected. Cardiac echo requested to determine ejection fraction. IV Lasix administered today, January 14 2 gauge urine output response. (4) Pseudomonas infection: Plan: Currently on Zosyn and Flagyl, day 2. Await culture results (5) Spina bifida: Plan: Congenital with paraplegia. Supportive care (6) Open wound of left thigh: Plan: Known chronic osteomyelitis. Local care Plan To be determined. Patient and family are considering DNR status Admission and Anticipated Discharge Date Admission Date: January 13, 2024 Subjective Awake but nonverbal. She is somewhat lethargic but able to track me with her eyes. Her sister and are at the bedside and we spoke at length along with the patient regarding CODE STATUS which currently is full code. I explained to them that DNR does not mean do not treat but that we would not take any final step to ventilator support if that should occur. She remains on Zosyn and Flagyl, day 2. BiPAP has been discontinued and now she is on oxygen per mask. IV Lasix has been administered to determine her response. I suspect she has an element of congestive heart failure. Cardiac echo report is pending. Review of Systems 2 Review of Systems: Constitutional-no fever or chills ENT-no blurred vision, no double vision, no epistaxis, no sore throat Respiratory-no cough, no wheezing. Shortness of breath with minimal exertion Cardiac-no palpitations, no chest pain, no syncope GI-no nausea, vomiting, diarrhea, melena, hematochezia -no urinary retention, no urinary incontinence, no dysuria, no hematuria Musculoskeletal-no joint pain, no muscle tenderness Skin-no bruising, no rashes, no pruritus Neuro-chronic paraplegia from history of spina bifida Psych-depressed affect Physical Exam 2 Physical Exam: General-alert and oriented x3, no fever, no chills HEENT-head atraumatic and normocephalic, pupils equal and reactive to light, extraocular muscles intact Neck-no lymphadenopathy or thyromegaly, trachea midline Chest-bilateral rhonchi and expiratory wheezes. Cardiac-regular rate and rhythm, normal S1 and S2 Abdomen-normal bowel sounds, nontender, no hepatosplenomegaly Extremities-chronic appearing edema and stasis dermatitis both lower extremities Neuro-congenital paraplegia from spinal bifida. Cranial nerves intact. Psych-depressed affect Results & Data Results & Data Vital Signs (Past 12 Hours) Vital Signs Temp Pulse Pulse Resp BP Pulse Ox O2 Del Method 01/14/24 11:36 36.5 C 105 H 19 118/67 92 Oxymask 01/14/24 10:43 111 H 20 91 Oxymask 01/14/24 07:18 83 20 94 BiPAP 01/14/24 07:00 36.6 C 91 H 24 121/61 93 BiPAP 01/14/24 03:30 95 H 20 95 01/14/24 02:51 36.6 C 97 H 16 135/79 95 BiPAP O2 Flow Rate FiO2 01/14/24 11:36 13 01/14/24 10:43 13 01/14/24 07:18 50 01/14/24 07:00 01/14/24 03:30 50 01/14/24 02:51 Laboratory Results 01/14/24 06:42 01/14/24 06:42 PG Care Time/CCT Total # of Minutes Spent Total Time Spent with Patient: Total time spent is greater than 50% in coordination of care (as documented) at patient's floor/unit and/or counseling patient: Coding Level of Care Code 89477 SUB INP/OBS CARE 3/50MIN Diagnoses Metabolic encephalopathy G93.41 Hypothermia T68.XXXA Acute CHF (congestive heart failure) I50.9 Pseudomonas infection A49.8 Spina bifida, unspecified hydrocephalus presence, unspecified spinal region Q05.9 Spinal region: unspecified Presence of hydrocephalus: unspecified hydrocephalus presence Open wound of left thigh S71.102A (5) Spina bifida Spinal region: unspecified Presence of hydrocephalus: unspecified hydrocephalus presence Qualified Code(s): Q05.9 - Spina bifida, unspecified
--- NOTE | 2024-01-14 16:42 | XCELERA ---
[id number]
[2024-01-15 07:04] LABS: Hemoglobin 9.4 g/dl (12.0-16.0); Mean Corpuscular Hemoglobin 29.7 pg (25.0-34.0); Mean Corpuscular Hgb Conc 32.4 g/dL (32.0-36.0); Mean Corpuscular Volume 91.8 fL (80.0-100.0); Mean Platelet Volume 11.2 fL (9.4-12.4); Platelet Count 75 K/uL (130-400); RDW Coefficient of Variation 17.6 % (11.5-14.5); RDW Standard Deviation 58.8 fL (36.4-46.3); Red Blood Count 3.16 M/uL (4.20-5.40); White Blood Count 4.87 K/ul (4.8-10.8)
[2024-01-15 07:21] LABS: BUN Creatinine Ratio 63.6 (10-20); Calcium 8.6 mg/dl (8.6-10.3); Creatinine Clr Calc Pharmacy 92.9 ml/min; Est GFR (African American) 108.6 ml/min; Est GFR (Non-African American) 93.7 ml/min
[2024-01-15 07:28] LABS: Acanthocytes 1+; Basophils # (auto) 0.01 K/uL (0.00-0.20); Basophils % (auto) 0.2 %; Immature Granulocytes # (auto) 0.03 K/uL (0.01-0.20); Immature Granulocytes % (auto) 0.6 %; Lymphocytes # (auto) 0.56 K/uL (1.20-3.40); Lymphocytes % (auto) 11.5 %; Monocytes # (auto) 0.38 K/uL (0.11-0.59); Monocytes % (auto) 7.8 %; Neutrophils # (auto) 3.89 K/uL (1.40-6.50); Neutrophils % (auto) 79.9 %
--- NOTE | 2024-01-15 09:29 | XRay Report ---
XR chest 1V portable HISTORY: respiratory failure, aspiration, possible CHF COMPARISON: Chest 01/13/2024. FINDINGS: There are low lung volumes. No pneumothorax. The heart is enlarged. Pulmonary edema persist s. Patchy right basilar densities have progressed. Scoliosis again noted. No acute fractures. Small r ight and trace left pleural effusions. IMPRESSION: 1. Cardiomegaly, pulmonary edema, bilateral pleural effusions again noted. 2. Right basilar densities have progressed. This could represent atelectasis or a pneumonia. ACT 112: Negative or not required by law. Electronically signed by: Joseph Sorensen M.D. 01/15/2024 9:26 AM
[2024-01-15] MEDS: POTASSIUM CHLORIDE / WTR 10 MEQ/100 ML PLCT IV SCH (09:55)
[2024-01-15] MEDS: methylPREDNISolone 40 MG in SYRINGE 0 ML IV SCH (09:58)
[2024-01-15] MEDS: FUROSEMIDE 40 MG/4 ML VIAL IV SCH (11:19)
--- NOTE | 2024-01-15 12:56 | Hospitalist Progress Note ---
Date of Service January 15, 2024 Assessment & Plan (1) Metabolic encephalopathy: Plan: Appears to have resolved. Supportive care. Treat underlying infectious process. Avoid [employer] depressants (2) Hypothermia: Plan: Warming blanket as needed. Now resolved (3) Acute CHF (congestive heart failure): Plan: Suspected. Cardiac echo reveals normal systolic function. Good diuretic response to intravenous Lasix yesterday, January 14. Lasix will continue today and going forward. (4) Hypokalemia: Plan: Due to Lasix diuresis. Parenteral replacement ordered. Serial labs (5) Pseudomonas infection: Plan: Currently on Zosyn, day 3. Flagyl has been discontinued. Await final culture results (6) Spina bifida: Plan: Congenital with paraplegia. Supportive care (7) Open wound of left thigh: Plan: Known chronic osteomyelitis. Local care Plan The patient and family have decided on a DNR status which has been ordered. Hopefully she can return to her previous living arrangements sometime this coming week Admission and Anticipated Discharge Date Admission Date: January 13, 2024 Subjective Awake and alert and smiling. This is a marked improvement from yesterday, January 14. She continues to require high flow oxygen despite the chest x-ray appearance. Chest CTA ordered to rule out underlying pulmonary embolism. She undoubtedly has aspirated and may have a component of pneumonitis. Parenteral steroids started. Potassium replacement required. She had brisk diuresis from intravenous Lasix. Parenteral Lasix has been reordered. Review of Systems 2 Review of Systems: Constitutional-no fever or chills ENT-no blurred vision, no double vision, no epistaxis, no sore throat Respiratory-no cough, no wheezing. Shortness of breath with minimal exertion Cardiac-no palpitations, no chest pain, no syncope GI-no nausea, vomiting, diarrhea, melena, hematochezia -no urinary retention, no urinary incontinence, no dysuria, no hematuria Musculoskeletal-no joint pain, no muscle tenderness Skin-no bruising, no rashes, no pruritus Neuro-chronic paraplegia from history of spina bifida Psych-depressed affect Physical Exam 2 Physical Exam: General-alert and oriented x3, no fever, no chills HEENT-head atraumatic and normocephalic, pupils equal and reactive to light, extraocular muscles intact Neck-no lymphadenopathy or thyromegaly, trachea midline Chest-bilateral rhonchi and expiratory wheezes have improved. Cardiac-regular rate and rhythm, normal S1 and S2 Abdomen-normal bowel sounds, nontender, no hepatosplenomegaly Extremities-chronic appearing edema and stasis dermatitis both lower extremities Neuro-congenital paraplegia from spinal bifida. Cranial nerves intact. Psych-normal affect. Normal mood Results & Data Results & Data Vital Signs (Past 12 Hours) Vital Signs Temp Pulse Resp BP BP Pulse Ox Pulse Ox 01/15/24 11:31 36.4 C L 87 21 156/81 H 92 01/15/24 10:54 68 20 97 01/15/24 08:15 01/15/24 08:06 36.5 C 96 H 18 144/76 H 90 01/15/24 07:15 83 20 96 01/15/24 03:00 96 01/15/24 03:00 36.5 C 92 H 16 127/69 96 O2 Del Method O2 Del Method O2 Flow Rate O2 Flow Rate 01/15/24 11:31 Oxymask 13 01/15/24 10:54 Nasal Cannula 7 01/15/24 08:15 Oxymask 11 01/15/24 08:06 Oxymask 11 01/15/24 07:15 Oxymask 11 01/15/24 03:00 Oxymask 13 01/15/24 03:00 Oxymask Laboratory Results 01/15/24 06:47 01/15/24 06:47 PG Care Time/CCT Total # of Minutes Spent Total Time Spent with Patient: Total time spent is greater than 50% in coordination of care (as documented) at patient's floor/unit and/or counseling patient: Coding Level of Care Code 41727 SUB INP/OBS CARE 3/50MIN Diagnoses Metabolic encephalopathy G93.41 Hypothermia T68.XXXA Acute CHF (congestive heart failure) I50.9 Hypokalemia E87.6 Pseudomonas infection A49.8 Spina bifida, unspecified hydrocephalus presence, unspecified spinal region Q05.9 Spinal region: unspecified Presence of hydrocephalus: unspecified hydrocephalus presence Open wound of left thigh S71.102A (6) Spina bifida Spinal region: unspecified Presence of hydrocephalus: unspecified hydrocephalus presence Qualified Code(s): Q05.9 - Spina bifida, unspecified
[2024-01-15] MEDS: OPTIRAY 320 125ml IV ONE (14:28)
--- NOTE | 2024-01-15 14:44 | CT Scan Report ---
CHEST CTA for PULMONARY ARTERIES CT DOSE: 776.79 mGy.cm HISTORY: hypoxia, possible PE TECHNIQUE: Multiaxial CT images of the chest were performed following the intravenous administration of contrast to evaluate the pulmonary arteries. 3D/Maximal intensity projection images were also obta ined. Sagittal and coronal reformations were also reviewed. A dose lowering technique was utilized a dhering to the principles of ALARA. COMPARISON STUDY: MRCP 12/29/2022. Chest CTA 05/20/2021 FINDINGS: Severe dextroscoliosis of the thoracic spine again noted. No acute fractures within the lisa [address]. There are few fused right anterior ribs, unchanged. There is a partially visualized lumbar myelom eningocele again noted. Limited views the upper abdomen demonstrate a normal liver and spleen. Prior cholecystectomy. Normal caliber esophagus. The thyroid gland enhances normally. The heart is borderli ne enlarged. No pericardial effusion. There are small bilateral pleural effusions. No mediastinal or hilar lymphadenopathy. Normal caliber thoracic aorta with no evidence for a dissection. No filling de fects within the pulmonary arteries to suggest a pulmonary embolus. No pneumothorax. The central airw ays are patent. Dense consolidation with air bronchograms throughout the majority of the bilateral lo wer lobes and also within the right upper lobe and right middle lobe posteriorly. This is consistent with a pneumonia. IMPRESSION: 1. No evidence for a pulmonary embolus. 2. Dense consolidation with air bronchograms within the lungs as described above consistent with a pn eumonia. 3. Small bilateral pleural effusions. 4. Additional findings as described above. ACT 112: Negative or not required by law. Electronically signed by: Joseph Sorensen M.D. 01/15/2024 2:42 PM
[2024-01-15] MEDS: POTASSIUM CHLORIDE CRTAB 20 MEQ TABCR PO STA (18:30)
[2024-01-15] MEDS: POTASSIUM CHLORIDE CRTAB 20 MEQ TABCR PO SCH (20:48)
--- NOTE | 2024-01-16 07:16 | XRay Report ---
XR chest 1V portable CLINICAL HISTORY: pneumonia, CHF COMPARISON STUDY: Chest radiograph and chest CT January 15, 2024. FINDINGS: This study is compromised given difficulty positioning. There is no pneumothorax. Small [place] ateral pleural effusions are present. There is pulmonary vascular congestion. Bilateral perihilar and bibasilar consolidation persists. IMPRESSION: 1. No significant change in perihilar and bibasilar consolidation suggestive of pneumonia. 2. Stable pulmonary vascular congestion. 3. Small bilateral pleural effusions. ACT 112: Negative or not required by law. Electronically signed by: Kwabena Montalvo M.D. 01/16/2024 7:15 AM
[2024-01-16 08:36] LABS: Hematocrit (blood only) 31.1 % (37.0-47.0); Hemoglobin 10.2 g/dl (12.0-16.0); Mean Corpuscular Hemoglobin 29.9 pg (25.0-34.0); Mean Corpuscular Hgb Conc 32.8 g/dL (32.0-36.0); Mean Corpuscular Volume 91.2 fL (80.0-100.0); Nucleated RBC # (auto) 0.03 K/uL (0.00-0.12); Nucleated RBC % (auto) 0.8 %; Platelet Count 86 K/uL (130-400); RDW Coefficient of Variation 17.2 % (11.5-14.5); RDW Standard Deviation 57.4 fL (36.4-46.3); Red Blood Count 3.41 M/uL (4.20-5.40); White Blood Count 3.84 K/ul (4.8-10.8)
[2024-01-16 08:57] LABS: Acanthocytes 1+; Basophils # (auto) 0.01 K/uL (0.00-0.20); Basophils % (auto) 0.3 %; Immature Granulocytes # (auto) 0.17 K/uL (0.01-0.20); Immature Granulocytes % (auto) 4.4 %; Lymphocytes # (auto) 0.44 K/uL (1.20-3.40); Lymphocytes % (auto) 11.5 %; Monocytes # (auto) 0.19 K/uL (0.11-0.59); Monocytes % (auto) 4.9 %; Neutrophils # (auto) 3.03 K/uL (1.40-6.50); Neutrophils % (auto) 78.9 %
[2024-01-16 09:03] LABS: BUN Creatinine Ratio 57.7 (10-20); Calcium 8.9 mg/dl (8.6-10.3); Creatinine Clr Calc Pharmacy 97.5 ml/min; Est GFR (African American) 110.6 ml/min; Est GFR (Non-African American) 95.5 ml/min; Potassium 3.1 mmol/L (3.5-5.1)
[2024-01-16] MEDS: POTASSIUM CHLORIDE CRTAB 20 MEQ TABCR PO SCH (09:59)
--- NOTE | 2024-01-16 14:57 | Hospitalist Progress Note ---
Date of Service January 16, 2024 Assessment & Plan (1) Metabolic encephalopathy: Plan: Present on admission. Now resolved. Supportive care. Treat underlying infectious process. 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 Now resolved (3) Acute CHF (congestive heart failure): Plan: Acute diastolic. Cardiac echo reveals normal systolic function. Good diuretic response to intravenous Lasix continues. (4) Hypokalemia: Plan: Due to Lasix diuresis. Oral replacement uptitrated today, January 16. Serial labs (5) Pseudomonas infection: Plan: Currently on Zosyn, day 4. Flagyl has been discontinued. Await final culture results (6) Spina bifida: Plan: Congenital with paraplegia. Supportive care (7) Open wound of left thigh: Plan: Known chronic osteomyelitis. Local care Plan Probable center care SNF placement at discharge. Hopefully later this week Admission and Anticipated Discharge Date Admission Date: January 13, 2024 Subjective Awake, alert, talkative. Family is present. She has definitely improved. Oxygen requirement remains at 5 L. Chest x-ray obtained today, January 16, looks better to my eye. Will obtain chest x-ray every 2 days until she is back to baseline. Potassium replacement uptitrated today due to persistent hypokalemia. Zosyn day 4 for suspected aspiration pneumonia. Previous cardiac echo this admission revealed normal ejection fraction. She also remains on parenteral steroid therapy. The family and patient are interested in pursuing center care or SNF placement at discharge. She has been there before. Review of Systems 2 Review of Systems: Constitutional-no fever or chills ENT-no blurred vision, no double vision, no epistaxis, no sore throat Respiratory-no cough, no wheezing. Shortness of breath with minimal exertion Cardiac-no palpitations, no chest pain, no syncope GI-no nausea, vomiting, diarrhea, melena, hematochezia -no urinary retention, no urinary incontinence, no dysuria, no hematuria Musculoskeletal-no joint pain, no muscle tenderness Skin-no bruising, no rashes, no pruritus Neuro-chronic paraplegia from history of spina bifida Psych-depressed affect Physical Exam 2 Physical Exam: General-alert and oriented x3, no fever, no chills HEENT-head atraumatic and normocephalic, pupils equal and reactive to light, extraocular muscles intact Neck-no lymphadenopathy or thyromegaly, trachea midline Chest-bilateral rhonchi and expiratory wheezes have improved. Cardiac-regular rate and rhythm, normal S1 and S2 Abdomen-normal bowel sounds, nontender, no hepatosplenomegaly Extremities-chronic appearing edema and stasis dermatitis both lower extremities Neuro-congenital paraplegia from spinal bifida. Cranial nerves intact. Psych-normal affect. Normal mood Results & Data Results & Data Vital Signs (Past 12 Hours) Vital Signs Temp Pulse Pulse Resp BP Pulse Ox Pulse Ox 01/16/24 13:58 93 H 18 96 01/16/24 11:01 36.5 C 100 H 18 134/64 97 01/16/24 10:55 98 H 20 94 01/16/24 08:00 01/16/24 07:19 76 20 93 01/16/24 07:00 90 01/16/24 07:00 36.7 C 93 H 17 153/82 H 98 01/16/24 03:00 94 01/16/24 02:58 36.4 C L 80 16 135/76 93 O2 Del Method O2 Del Method O2 Flow Rate O2 Flow Rate 01/16/24 13:58 Nasal Cannula 5 01/16/24 11:01 Nasal Cannula 5 01/16/24 10:55 Nasal Cannula 5 01/16/24 08:00 Room Air 01/16/24 07:19 Nasal Cannula 5 01/16/24 07:00 01/16/24 07:00 Nasal Cannula 5 01/16/24 03:00 Nasal Cannula 5 01/16/24 02:58 Nasal Cannula 5 Laboratory Results 01/16/24 07:43 01/16/24 07:43 PG Care Time/CCT Total # of Minutes Spent Total Time Spent with Patient: Total time spent is greater than 50% in coordination of care (as documented) at patient's floor/unit and/or counseling patient: Coding Level of Care Code 76993 SUB INP/OBS CARE 3/50MIN Diagnoses Metabolic encephalopathy G93.41 Hypothermia T68.XXXA Acute CHF (congestive heart failure) I50.9 Hypokalemia E87.6 Pseudomonas infection A49.8 Spina bifida, unspecified hydrocephalus presence, unspecified spinal region Q05.9 Spinal region: unspecified Presence of hydrocephalus: unspecified hydrocephalus presence Open wound of left thigh S71.102A (6) Spina bifida Spinal region: unspecified Presence of hydrocephalus: unspecified hydrocephalus presence Qualified Code(s): Q05.9 - Spina bifida, unspecified
[2024-01-17 10:21] LABS: Hematocrit (blood only) 30.6 % (37.0-47.0); Hemoglobin 9.8 g/dl (12.0-16.0); Mean Corpuscular Hemoglobin 29.9 pg (25.0-34.0); Mean Corpuscular Volume 93.3 fL (80.0-100.0); Mean Platelet Volume 11.6 fL (9.4-12.4); Nucleated RBC # (auto) 0.03 K/uL (0.00-0.12); Nucleated RBC % (auto) 0.6 %; Platelet Count 119 K/uL (130-400); RDW Coefficient of Variation 17.5 % (11.5-14.5); RDW Standard Deviation 59.8 fL (36.4-46.3); Red Blood Count 3.28 M/uL (4.20-5.40); White Blood Count 5.38 K/ul (4.8-10.8)
[2024-01-17 10:25] LABS: Albumin Globulin Ratio 1.1 (0.9-2); Albumin Level 3.6 gm/dl (3.4-5.0); BUN Creatinine Ratio 54.5 (10-20); Bilirubin,Total 1.3 mg/dl (0.2-1.0); Calcium 8.8 mg/dl (8.6-10.3); Creatinine Clr Calc Pharmacy 90.1 ml/min; Est GFR (African American) 108.6 ml/min; Est GFR (Non-African American) 93.7 ml/min; Globulin 3.3 gm/dl (2.5-4.0); Magnesium 1.7 mg/dl (1.7-2.4); Potassium 3.4 mmol/L (3.5-5.1); Total Protein 6.9 gm/dl (6.0-8.3)
[2024-01-17] MEDS: DOXYCYCLINE HYCLATE 100 MG in DEXTROSE 5% MINI-B 100 ML IV SCH (10:36)
[2024-01-17 10:43] LABS: Basophils # (auto) 0.02 K/uL (0.00-0.20); Basophils % (auto) 0.4 %; Immature Granulocytes # (auto) 0.33 K/uL (0.01-0.20); Immature Granulocytes % (auto) 6.1 %; Lymphocytes # (auto) 0.43 K/uL (1.20-3.40); Monocytes # (auto) 0.32 K/uL (0.11-0.59); Monocytes % (auto) 5.9 %; Neutrophils # (auto) 4.28 K/uL (1.40-6.50); Neutrophils % (auto) 79.6 %; RBC Morphology Unremarkable
[2024-01-17] MEDS: MAGNESIUM SULFATE / D5W 1 GM/100 ML BAG IV SCH (12:55)
--- NOTE | 2024-01-17 15:16 | Hospitalist Progress Note ---
Date of Service January 17, 2024 Assessment & Plan (1) Aspiration pneumonia: Plan: Presented with sepsis, POA Multifocal pneumonia, as the cause of her acute metabolic encephalopathy Seems to be improving, still requiring 3 L nasal cannula Continue IV Zosyn but discontinue steroids as not needed Add doxycycline for MRSA coverage given history of MRSA and for atypical coverage Follow chest x-ray to resolution (2) Metabolic encephalopathy: Plan: Present on admission. Now mostly resolved as I know her from previous admissions-she is definitely improved compared to what is described on admissio n. Supportive care. Treat underlying infectious process as noted above. 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 (3) Acute respiratory failure with hypoxia: Plan: Secondary to aspiration pneumonia Doubt CHF-no need for further IV Lasix (4) Thrombocytopenia: Plan: Likely secondary to sepsis but check anaplasmosis and peripheral smear-no myelodysplastic features or anaplasmosis inclusion bodies noted Improving now up to 119 Continue to treat infection (5) Elevated LFTs: Plan: Likely secondary to sepsis induced liver injury but given low platelets, would also check anaplasmosis as noted above Liver ultrasound normal except for hepatic cysts Check LFTs today-seem to be much improved Follow LFTs (6) Hypothermia: Plan: Treated with warming blanket. Now resolved Secondary to sepsis (7) Acute CHF (congestive heart failure): Plan: Thought to have acute on chronic diastolic CHF. Cardiac echo reveals normal systolic function with elevated right-sided pressure. Good diuretic response to intravenous Lasix-discontinue Lasix now (8) Hypokalemia: Plan: Due to Lasix diuresis. Improving but remains mildly low Continue oral replacement Follow BMP and magnesium (9) Spina bifida: Plan: Congenital with paraplegia. Supportive care (10) Open wound of left thigh: Plan: Known chronic osteomyelitis. Local care (11) Hypothyroidism: Plan: TSH is elevated at 7.1, free T4 normal Continue home dose of levothyroxine 50 mcg for now as this likely could be secondary to acute illness Follow TSH in 6 weeks (12) Lymphedema: Plan: Chronic (13) Anemia: Plan: Hemoglobin stable from previous at 9.8, normocytic, likely of chronic disease Longstanding but could be from nutritional deficiencies Peripheral smear suspects anemia of chronic disease but recommends iron studies (14) Hypertension: Plan: Blood pressures are controlled Continue home amlodipine (15) Ischemic stroke: Plan: History of such Continue aspirin Is not on statin therapy here but does have it on home med list-add back home atorvastatin Plan DVT prophylaxis Lovenox SQ Disposition-continued stay on telemetry, eventually home with home health as she is total care and has everything she needs at home Admission and Anticipated Discharge Date Admission Date: January 13, 2024 Subjective Patient denies any problems, not having any shortness of breath has some slight cough. Telemetry with normal sinus rhythm and sinus tachycardia with rates in 70s to low 100s, PACs Physical Exam Constitutional: WD/WN, vitals as above Respiratory: normal respiratory effort; no cough Auscultation: + crackles (Right middle and lower lobes); no rhonchi and no wheezes Cardiovascular: Rate/Rhythm: regular rate and regular rhythm Heart Sounds: no murmur Extremities: + edema (Severe, lymphedema) Gastrointestinal (Abdomen): normal bowel sounds, soft, nontender, no hepatosplenomegaly Results & Data Results & Data Vital Signs (Past 12 Hours) Vital Signs Temp Pulse Pulse Resp BP BP Pulse Ox 01/17/24 11:44 36.9 C 104 H 22 136/76 95 01/17/24 11:20 63 20 93 01/17/24 08:05 01/17/24 08:00 90 20 93 01/17/24 07:55 36.6 C 104 H 22 114/67 93 01/17/24 03:55 36.8 C 88 17 149/78 H 93 01/17/24 03:35 90 16 93 O2 Del Method O2 Flow Rate 01/17/24 11:44 Nasal Cannula 3 01/17/24 11:20 Nasal Cannula 3 01/17/24 08:05 Nasal Cannula 3 01/17/24 08:00 Nasal Cannula 4 01/17/24 07:55 Nasal Cannula 3 01/17/24 03:55 CPAP 01/17/24 03:35 6 Laboratory Results CBC, BMP, magnesium, LFTs reviewed PG Care Time/CCT Total # of Minutes Spent Total Time Spent with Patient: Total time spent is greater than 50% in coordination of care (as documented) at patient's floor/unit and/or counseling patient: Coding Level of Care Code 90032 SUB INP/OBS CARE 3/50MIN Diagnoses Aspiration pneumonia J69.0 Metabolic encephalopathy G93.41 Acute respiratory failure with hypoxia J96.01 Thrombocytopenia D69.6 Elevated LFTs R79.89 Hypothermia T68.XXXA Acute CHF (congestive heart failure) I50.9 Hypokalemia E87.6 Spina bifida, unspecified hydrocephalus presence, unspecified spinal region Q05.9 Presence of hydrocephalus: unspecified hydrocephalus presence Spinal region: unspecified Open wound of left thigh S71.102A Hypothyroidism E03.9 Lymphedema I89.0 Anemia D64.9 Primary hypertension I10 Hypertension type: primary hypertension Ischemic stroke I63.9 (9) Spina bifida Presence of hydrocephalus: unspecified hydrocephalus presence Spinal region: unspecified Qualified Code(s): Q05.9 - Spina bifida, unspecified (14) Hypertension Hypertension type: primary hypertension Qualified Code(s): I10 - Essential (primary) hypertension
[2024-01-18 08:38] LABS: Hemoglobin 9.5 g/dl (12.0-16.0); Mean Corpuscular Hemoglobin 29.6 pg (25.0-34.0); Mean Corpuscular Hgb Conc 31.7 g/dL (32.0-36.0); Mean Corpuscular Volume 93.5 fL (80.0-100.0); Mean Platelet Volume 10.8 fL (9.4-12.4); Nucleated RBC # (auto) 0.04 K/uL (0.00-0.12); Nucleated RBC % (auto) 0.5 %; Platelet Count 126 K/uL (130-400); RDW Coefficient of Variation 17.7 % (11.5-14.5); RDW Standard Deviation 60.1 fL (36.4-46.3); Red Blood Count 3.21 M/uL (4.20-5.40); White Blood Count 7.41 K/ul (4.8-10.8)
[2024-01-18 08:59] LABS: Basophils # (auto) 0.03 K/uL (0.00-0.20); Basophils % (auto) 0.4 %; Immature Granulocytes # (auto) 0.36 K/uL (0.01-0.20); Immature Granulocytes % (auto) 4.9 %; Lymphocytes # (auto) 1.07 K/uL (1.20-3.40); Lymphocytes % (auto) 14.4 %; Monocytes # (auto) 0.83 K/uL (0.11-0.59); Monocytes % (auto) 11.2 %; Neutrophils # (auto) 5.12 K/uL (1.40-6.50); Neutrophils % (auto) 69.1 %
[2024-01-18 09:17] LABS: Folate (Folic Acid),Ser orPlas 14.21 ng/ml (>5.38)
[2024-01-18 09:22] LABS: Albumin Globulin Ratio 1.2 (0.9-2); Albumin Level 3.4 gm/dl (3.4-5.0); BUN Creatinine Ratio 57.1 (10-20); Bilirubin,Total 1.2 mg/dl (0.2-1.0); C Reactive Protein 4.52 mg/dl (0-0.5); Calcium 8.7 mg/dl (8.6-10.3); Creatinine Clr Calc Pharmacy 102.4 ml/min; Est GFR (African American) 112.8 ml/min; Est GFR (Non-African American) 97.3 ml/min; Ferritin 175.6 ng/ml (8-388); Globulin 2.9 gm/dl (2.5-4.0); Magnesium 2.1 mg/dl (1.7-2.4); Potassium 4.1 mmol/L (3.5-5.1); Total Protein 6.3 gm/dl (6.0-8.3)
[2024-01-18] MEDS: ATORVASTATIN 40 MG TAB PO SCH (10:39)
--- NOTE | 2024-01-18 15:14 | Electrocardiogram Report ---
Test Reason : Blood Pressure : / mmHG Vent. Rate : 111 BPM Atrial Rate : 111 BPM P-R Int : 120 ms QRS Dur : 084 ms QT Int : 300 ms P-R-T Axes : 046 038 191 degrees QTc Int : 408 ms Sinus tachycardia Nonspecific ST and T wave abnormality Abnormal ECG When compared with ECG of 12-JAN-2024 18:40, Vent. rate has increased BY 52 BPM Confirmed by Thoe Roberts ([id number]) on 01/18/2024 3:13:52 PM Referred By: REFERRED SELF Confirmed By:Theo Roberts
--- NOTE | 2024-01-18 16:17 | Hospitalist Progress Note ---
Date of Service January 18, 2024 Assessment & Plan (1) Aspiration pneumonia: Plan: Presented with sepsis, POA Multifocal pneumonia, as the cause of her acute metabolic encephalopathy Continues to improve,weaned down to 2 L nasal cannula with occasional episodes of hypoxia Has poor cough,weakness due to body habitus Continue IV Zosyn but discontinued steroids as not needed Continue doxycycline for MRSA coverage given history of MRSA and for atypical coverage Follow chest x-ray to resolution Continue ICS and add flutter valve to help mobilize sputum CRP more elevated but clinically improving-follow CRP, CBC, CMP (2) Metabolic encephalopathy: Plan: Present on admission. Now mostly resolved as I know her from previous admissions-she is definitely improved compared to what is described on admission. Supportive care. Treat underlying infectious process as noted above. 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 (3) Acute respiratory failure with hypoxia: Plan: Secondary to aspiration pneumonia Doubt CHF-no need for further IV Lasix-stoped; dc po KCl replacement as K+ normal Treating PNA as above (4) Thrombocytopenia: Plan: Likely secondary to sepsis but checked anaplasmosis and peripheral smear-no myelodysplastic features or anaplasmosis inclusion bodies noted Improving now up to 126 Continue to treat infection Follow CBC (5) Elevated LFTs: Plan: Likely secondary to sepsis induced liver injury but given low platelets, checked anaplasmosis as noted above-negative smear, DNA PCR pending Liver ultrasound normal except for hepatic cysts Follow LFTs-almost completely normal now (6) Hypothermia: Plan: Treated with warming blanket. Now resolved Secondary to sepsis (7) Acute CHF (congestive heart failure): Plan: Thought to have acute on chronic diastolic CHF. Cardiac echo reveals normal systolic function with elevated right-sided pressure. Good diuretic response to intravenous Lasix-now hypernatremic discontinued Lasix has chronic lymphedema and is not on diuretics at home (8) Hypokalemia: Plan: Due to Lasix diuresis. now resolved dc po KCl Follow BMP and magnesium (9) Spina bifida: Plan: Congenital with paraplegia. Supportive care (10) Open wound of left thigh: Plan: Known chronic osteomyelitis. Local care (11) Hypothyroidism: Plan: TSH is elevated at 7.1, free T4 normal Continue home dose of levothyroxine 50 mcg for now as this likely could be s econdary to acute illness Follow TSH in 6 weeks (12) Lymphedema: Plan: Chronic (13) Anemia: Plan: Hemoglobin stable from previous at 9.5, normocytic, likely of chronic disease, is longstanding Peripheral smear suspects anemia of chronic disease but recommends iron studies Fe studies, B12, folate all normal (14) Hypertension: Plan: Blood pressures are controlled Continue home amlodipine (15) Ischemic stroke: Plan: History of such Continue aspirin, atorvastatin Plan DVT prophylaxis- Lovenox SQ Disposition-continued stay on telemetry, eventually home with home health as she is total care and has everything she needs at home Admission and Anticipated Discharge Date Admission Date: January 13, 2024 Subjective Pt had some sinus tach in response to some hypoxia earlier that improved with increasing O2 amount. Weaned back down to 2LNC and appears comfortable. Is not coughing up any sputum. Denies any other issues Tele with ST, NSR rates 90-130s Physical Exam Constitutional: WD/WN, vitals as above Respiratory: normal respiratory effort; no cough Auscultation: + crackles (Right middle and lower lobes); no rhonchi and no wheezes Cardiovascular: Rate/Rhythm: regular rate and regular rhythm Heart Sounds: no murmur Extremities: + edema (Severe, lymphedema) Gastrointestinal (Abdomen): normal bowel sounds, soft, nontender, no hepatosplenomegaly Results & Data Results & Data Vital Signs (Past 12 Hours) Vital Signs Temp Pulse Pulse Resp BP BP Pulse Ox 01/18/24 15:58 36.6 C 81 18 118/68 92 01/18/24 14:54 95 H 18 92 01/18/24 12:25 122 H 18 128/68 94 01/18/24 11:36 36.7 C 94 H 18 110/58 L 01/18/24 11:28 88 01/18/24 11:24 96 H 20 93 01/18/24 08:45 01/18/24 08:01 37.0 C 80 20 116/68 91 01/18/24 07:40 87 20 93 O2 Del Method O2 Flow Rate 01/18/24 15:58 Nasal Cannula 2 01/18/24 14:54 Nasal Cannula 5 01/18/24 12:25 Nasal Cannula 6 01/18/24 11:36 01/18/24 11:28 01/18/24 11:24 Nasal Cannula 2 01/18/24 08:45 Nasal Cannula 2 01/18/24 08:01 Nasal Cannula 1.5 01/18/24 07:40 Nasal Cannula 2 Laboratory Results CBC, CMP, Mag, CRP, Fe studies, B12, folate reviewed BCxs reviewed PG Care Time/CCT Total # of Minutes Spent Total Time Spent with Patient: Total time spent is greater than 50% in coordination of care (as documented) at patient's floor/unit and/or counseling patient: Coding Level of Care Code 54170 SUB INP/OBS CARE 2/35MIN Diagnoses Aspiration pneumonia J69.0 Metabolic encephalopathy G93.41 Acute respiratory failure with hypoxia J96.01 Thrombocytopenia D69.6 Elevated LFTs R79.89 Hypothermia T68.XXXA Acute CHF (congestive heart failure) I50.9 Hypokalemia E87.6 Spina bifida, unspecified hydrocephalus presence, unspecified spinal region Q05.9 Spinal region: unspecified Presence of hydrocephalus: unspecified hydrocephalus presence Open wound of left thigh S71.102A Hypothyroidism E03.9 Lymphedema I89.0 Anemia D64.9 Primary hypertension I10 Hypertension type: primary hypertension Ischemic stroke I63.9 (9) Spina bifida Spinal region: unspecified Presence of hydrocephalus: unspecified hydrocephalus presence Qualified Code(s): Q05.9 - Spina bifida, unspecified (14) Hypertension Hypertension type: primary hypertension Qualified Code(s): I10 - Essential (primary) hypertension
[2024-01-19 09:06] LABS: Basophils # (auto) 0.02 K/uL (0.00-0.20); Basophils % (auto) 0.3 %; Eosinophils # (auto) 0.26 K/uL (0.00-0.50); Eosinophils % (auto) 3.3 %; Hematocrit (blood only) 29.4 % (37.0-47.0); Hemoglobin 9.3 g/dl (12.0-16.0); Immature Granulocytes # (auto) 0.38 K/uL (0.01-0.20); Immature Granulocytes % (auto) 4.8 %; Lymphocytes # (auto) 1.94 K/uL (1.20-3.40); Lymphocytes % (auto) 24.6 %; Mean Corpuscular Hemoglobin 29.9 pg (25.0-34.0); Mean Corpuscular Hgb Conc 31.6 g/dL (32.0-36.0); Mean Corpuscular Volume 94.5 fL (80.0-100.0); Mean Platelet Volume 10.6 fL (9.4-12.4); Monocytes # (auto) 0.61 K/uL (0.11-0.59); Monocytes % (auto) 7.7 %; Neutrophils # (auto) 4.67 K/uL (1.40-6.50); Neutrophils % (auto) 59.3 %; Nucleated RBC # (auto) 0.02 K/uL (0.00-0.12); Nucleated RBC % (auto) 0.3 %; Platelet Count 123 K/uL (130-400); RDW Coefficient of Variation 18.2 % (11.5-14.5); RDW Standard Deviation 62.1 fL (36.4-46.3); Red Blood Count 3.11 M/uL (4.20-5.40); White Blood Count 7.88 K/ul (4.8-10.8)
[2024-01-19 09:25] LABS: Albumin Globulin Ratio 1.2 (0.9-2); Albumin Level 3.4 gm/dl (3.4-5.0); BUN Creatinine Ratio 55.6 (10-20); C Reactive Protein 2.69 mg/dl (0-0.5); Calcium 8.7 mg/dl (8.6-10.3); Creatinine Clr Calc Pharmacy 110.7 ml/min; Est GFR (Non-African American) 100.1 ml/min; Globulin 2.9 gm/dl (2.5-4.0); Potassium 4.4 mmol/L (3.5-5.1); Total Protein 6.3 gm/dl (6.0-8.3)
--- NOTE | 2024-01-19 17:27 | Hospitalist Progress Note ---
Date of Service January 19, 2024 Assessment & Plan (1) Aspiration pneumonia: Plan: Presented with sepsis, POA, hypothermia Multifocal pneumonia, as the cause of her acute metabolic encephalopathy Continues to improve,weaned down to 2 L nasal cannula Has poor cough,weakness due to body habitus Continue IV Zosyn but discontinued steroids as not needed Continue doxycycline for MRSA coverage given history of MRSA and for atypical coverage Follow chest x-ray to resolution Continue ICS and flutter valve to help mobilize sputum CRP improving-follow CBC, CMP (2) Metabolic encephalopathy: Plan: Present on admission. Now resolved as I know her from previous admissions-she is definitely improved compared to what is described on admission. Supportive care. Treat underlying infectious process as noted above. 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 (3) Acute respiratory failure with hypoxia: Plan: Secondary to aspiration pneumonia Doubt CHF-no need for further IV Lasix-stoped; dc po KCl replacement as K+ normal Treating PNA as above (4) Thrombocytopenia: Plan: Likely secondary to sepsis but checked anaplasmosis and peripheral smear-no myelodysplastic features or anaplasmosis inclusion bodies noted Improving now up to 120s Continue to treat infection Follow CBC (5) Elevated LFTs: Plan: Likely secondary to sepsis induced liver injury but given low platelets, checked anaplasmosis as noted above-negative smear, DNA PCR pending Liver ultrasound normal except for hepatic cysts Follow LFTs-continue to improve, almost completely normal (6) Acute CHF (congestive heart failure): Plan: Thought to have acute on chronic diastolic CHF. Cardiac echo reveals normal systolic function with elevated right-sided pressure. Good diuretic response to intravenous Lasix-became hypernatremic and discontinued Lasix has chronic lymphedema and is not on diuretics at home (7) Hypokalemia: Plan: Due to Lasix diuresis. now resolved dcd po KCl Follow BMP and magnesium (8) Spina bifida: Plan: Congenital with paraplegia. Supportive care (9) Open wound of left thigh: Plan: Known chronic osteomyelitis. Local care (10) Hypothyroidism: Plan: TSH is elevated at 7.1, free T4 normal Continue home dose of levothyroxine 50 mcg for now as this likely could be secondary to acute illness Follow TSH in 6 weeks (11) Lymphedema: Plan: Chronic (12) Anemia: Plan: Hemoglobin stable from previous at 9.3, normocytic, likely of chronic disease, is longstanding Peripheral smear suspects anemia of chronic disease but recommends iron studies Fe studies, B12, folate all normal (13) Hypertension: Plan: Blood pressures are controlled Continue home amlodipine (14) Ischemic stroke: Plan: History of such Continue aspirin, atorvastatin Plan DVT prophylaxis- Lovenox SQ Disposition-continued stay on telemetry, eventually home with home health as she is total care and has everything she needs at home. worries she should not be sent home until she is better able to use her arms for feeding herself, etc. Admission and Anticipated Discharge Date Admission Date: January 13, 2024 Subjective Weaning down on O2 to 2LNC. Still feels weak in her arms and can barely feed herself. concerned about her going home too soon if still weak as he said insurance won't pay for rehab. Pt not coughing anything up. Tele with NSR, rates 80-90s Physical Exam Constitutional: WD/WN, vitals as above Respiratory: normal respiratory effort; no cough Auscultation: + crackles (Right middle and lower lobes improving); no rhonchi and no wheezes Cardiovascular: Rate/Rhythm: regular rate and regular rhythm Heart Sounds: no murmur Extremities: + edema (Severe, lymphedema) Gastrointestinal (Abdomen): normal bowel sounds, soft, nontender, no hepatosplenomegaly Psychiatric: A+Ox3, euthymic affect Results & Data Results & Data Vital Signs (Past 12 Hours) Vital Signs Temp Pulse Resp BP Pulse Ox O2 Del Method O2 Flow Rate 01/19/24 15:55 36.9 C 87 18 122/72 94 Nasal Cannula 2 01/19/24 15:52 93 H 16 93 Nasal Cannula 2 01/19/24 11:45 37.2 C 85 20 129/66 92 Nasal Cannula 2 01/19/24 11:27 88 18 94 Nasal Cannula 2 01/19/24 08:21 90 94 2 01/19/24 07:55 36.6 C 89 20 132/76 94 Nasal Cannula 2 Laboratory Results CBC, BMP, LFTs, CRP reviewed PG Care Time/CCT Total # of Minutes Spent Total Time Spent with Patient: Total time spent is greater than 50% in coordination of care (as documented) at patient's floor/unit and/or counseling patient: Coding Level of Care Code 27139 SUB INP/OBS CARE 2/35MIN Diagnoses Aspiration pneumonia J69.0 Metabolic encephalopathy G93.41 Acute respiratory failure with hypoxia J96.01 Thrombocytopenia D69.6 Elevated LFTs R79.89 Acute CHF (congestive heart failure) I50.9 Hypokalemia E87.6 Spina bifida, unspecified hydrocephalus presence, unspecified spinal region Q05.9 Spinal region: unspecified Presence of hydrocephalus: unspecified hydrocephalus presence Open wound of left thigh S71.102A Hypothyroidism E03.9 Lymphedema I89.0 Anemia D64.9 Primary hypertension I10 Hypertension type: primary hypertension Ischemic stroke I63.9 (8) Spina bifida Spinal region: unspecified Presence of hydrocephalus: unspecified hydrocephalus presence Qualified Code(s): Q05.9 - Spina bifida, unspecified (13) Hypertension Hypertension type: primary hypertension Qualified Code(s): I10 - Essential (primary) hypertension
[2024-01-20 07:35] LABS: Basophils # (auto) 0.01 K/uL (0.00-0.20); Basophils % (auto) 0.1 %; Eosinophils # (auto) 0.67 K/uL (0.00-0.50); Eosinophils % (auto) 8.8 %; Hematocrit (blood only) 26.3 % (37.0-47.0); Hemoglobin 8.5 g/dl (12.0-16.0); Immature Granulocytes # (auto) 0.31 K/uL (0.01-0.20); Immature Granulocytes % (auto) 4.1 %; Lymphocytes # (auto) 1.61 K/uL (1.20-3.40); Lymphocytes % (auto) 21.1 %; Mean Corpuscular Hgb Conc 32.3 g/dL (32.0-36.0); Mean Corpuscular Volume 92.9 fL (80.0-100.0); Mean Platelet Volume 10.8 fL (9.4-12.4); Monocytes # (auto) 0.43 K/uL (0.11-0.59); Monocytes % (auto) 5.6 %; Neutrophils # (auto) 4.61 K/uL (1.40-6.50); Neutrophils % (auto) 60.3 %; Platelet Count 131 K/uL (130-400); RDW Coefficient of Variation 17.7 % (11.5-14.5); RDW Standard Deviation 59.7 fL (36.4-46.3); Red Blood Count 2.83 M/uL (4.20-5.40); White Blood Count 7.64 K/ul (4.8-10.8)
[2024-01-20 07:52] LABS: Albumin Globulin Ratio 1.2 (0.9-2); Albumin Level 3.1 gm/dl (3.4-5.0); BUN Creatinine Ratio 46.3 (10-20); Bilirubin,Total 0.8 mg/dl (0.2-1.0); Calcium 8.3 mg/dl (8.6-10.3); Creatinine Clr Calc Pharmacy 120.9 ml/min; Est GFR (African American) 119.6 ml/min; Est GFR (Non-African American) 103.2 ml/min; Globulin 2.5 gm/dl (2.5-4.0); Magnesium 1.9 mg/dl (1.7-2.4); Potassium 4.2 mmol/L (3.5-5.1); Total Protein 5.6 gm/dl (6.0-8.3)
--- NOTE | 2024-01-20 09:05 | XRay Report ---
XR chest 1V portable CLINICAL HISTORY: pneumonia, CHF, resp failure COMPARISON STUDY: Chest CT January 15, 2024. Chest radiograph January 16, 2024. FINDINGS: This exam is compromised given difficulty positioning. There is no pneumothorax. Small bila teral pleural effusions are unchanged. Perihilar and bibasilar consolidation is similar to prior exam . Pulmonary vascular congestion is unchanged. Cardiomediastinal silhouette is stable. IMPRESSION: 1. No significant change in perihilar and bibasilar consolidation consistent with pneumonia. 2. Stable pulmonary vascular congestion. 3. Small bilateral pleural effusions. ACT 112: Negative or not required by law. Electronically signed by: Kwabena Montalvo M.D. 01/20/2024 9:03 AM
--- NOTE | 2024-01-20 12:43 | Discharge Summary ---
Date of Service January 20, 2024 Admission HPI Per Admitting Provider Patient is a 73-year-old female who presents to the hospital with altered mental status as well as hypothermia. Patient is alert and oriented x 2 (self and location) and was not able to tell me why she came in today. She states that she does not have any pain currently. And that she has no open wounds on her body. She is in a thermal blanket at this time. There was no family bedside at time of admission. Majority of history and physical had to be achieved from ED provider. Per ED note patient presented with altered mental status. Patient's 's report that the patient has been having difficulty speaking and finding her words for the last week. Reports that she had similar episode last year which admitted bad infection. No fevers, no nausea or vomiting. No diarrhea. No falls or traumas. No chest pain or shortness of breath. No abdominal pain. Principal Diagnosis Aspiration pneumonia, acute hypoxic respiratory failure, acute diastolic co ngestive heart failure, hypokalemia Discharge Exam General-alert and oriented x3, no fever, no chills HEENT-head atraumatic and normocephalic, pupils equal and reactive to light, extraocular muscles intact Neck-no lymphadenopathy or thyromegaly, trachea midline Chest-bilateral rhonchi and expiratory wheezes have improved. Cardiac-regular rate and rhythm, normal S1 and S2 Abdomen-normal bowel sounds, nontender, no hepatosplenomegaly Extremities-chronic appearing edema and stasis dermatitis both lower extremities Neuro-congenital paraplegia from spinal bifida. Cranial nerves intact. Psych-normal affect. Normal mood Discharge Data Allergies Allergy/AdvReac Type Severity Reaction Status Date / Time nalidixic acid Allergy Unknown Unknown Verified 12/15/23 13:30 Consultations 01/13/24 00:44 ED Decision to Admit Stat Ordered Studies 01/12/24 18:35 CT angio head w con Stat CT angio neck with con Stat CT head/brain wo con Stat 01/13/24 01:46 US RUQ [US liver] Stat 01/15/24 12:50 CT angio chest PE protocol Urgent Hospital Course (1) Aspiration pneumonia: Presented with sepsis, POA, hypothermia Multifocal pneumonia, as the cause of her acute metabolic encephalopathy Continues to improve,weaned down to 2 L nasal cannula Has poor cough,weakness due to body habitus Continue IV Zosyn but discontinued steroids as not needed Continue doxycycline for MRSA coverage given history of MRSA and for atypical coverage Follow chest x-ray to resolution Continue ICS and flutter valve to help mobilize sputum CRP improving-follow CBC, CMP (2) Metabolic encephalopathy: Present on admission. Now resolved as I know her from previous admissions-she is definitely improved compared to what is described on admission. Supportive care. Treat underlying infectious process as noted above. Avoid SE[employer] OFF[employer]ER depressants (3) Acute respiratory failure with hypoxia: Secondary to aspiration pneumonia Doubt CHF-no need for further IV Lasix-stoped; dc po KCl replacement as K+ normal Treating PNA as above Two-step oxygen study completed. She will require 2 L of oxygen per nasal cannula continuously (4) Thrombocytopenia: Likely secondary to sepsis but checked anaplasmosis and peripheral smear-no m yelodysplastic features or anaplasmosis inclusion bodies noted Improving now up to 120s Continue to treat infection Follow CBC (5) Elevated LFTs: Likely secondary to sepsis induced liver injury but given low platelets, checked anaplasmosis as noted above-negative smear, DNA PCR pending Liver ultrasound normal except for hepatic cysts Follow LFTs-continue to improve, almost completely normal (6) Acute CHF (congestive heart failure): Thought to have acute on chronic diastolic CHF. Cardiac echo reveals normal systolic function with elevated right-sided pressure. Good diuretic response to intravenous Lasix. Will discharge on Lasix 40 mg orally every other day (7) Hypokalemia: Due to Lasix diuresis. Now resolved. Will take potassium when she takes Lasix (8) Spina bifida: Congenital with paraplegia. Supportive care (9) Open wound of left thigh: Known chronic osteomyelitis. Local care (10) Hypothyroidism: TSH is elevated at 7.1, free T4 normal. Continue current thyroid replacement dosage. Recommend outpatient follow-up (11) Lymphedema: Chronic bilateral lower extremity venous stasis and lymphedema (12) Anemia: Hemoglobin stable from previous at 9.3, normocytic, likely of chronic disease, is longstanding Peripheral smear suspects anemia of chronic disease but recommends iron studies Fe studies, B12, folate all normal (13) Hypertension: Blood pressures are controlled Continue home amlodipine (14) Ischemic stroke: History of such Continue aspirin, atorvastatin Plan Home today, January 19, with home health services. Continue home physical therapy. Continuous oxygen at 2 L/min per nasal cannula. Follow-up with primary care provider soon as possible. Total Time Total Time Spent Total Time Spent (In Minutes): 45 minutes Discharge Plan Discharge Items Patient Disposition: Home - Home Health Services Reason For Visit: HYPOTHERMIA TRANSAMNITIS Discharge Diagnosis: Suspected aspiration pneumonia, acute hypoxic respiratory failure, acute diastolic congestive heart failure, hypokalemia Activity: Resume your previous activity Non-emergency contact: Primary Care Provider Call non-emergency contact if: your symptoms worsen Follow-up/Referrals: Fartun Frank PA-C [Primary Care Provider] - Diet: Regular and Heart Healthy Addtl Attending Provider Instructions: Take Lasix and potassium every other day. Take Augmentin antibiotic twice daily for 10 more days. Prescriptions have been sent to [facility] pharmacy on . Wear oxygen at 2 L/min per nasal cannula continuously Pending Studies at Discharge: No Stand-Alone Forms: My DecisionView, Smoking Cessation Medications and DC Order Prescriptions: New furosemide [Lasix] 40 mg tablet 40 mg PO Q OTHER DAY Qty: 30 0RF potassium chloride 10 mEq tablet extended release 10 meq PO .qod Qty: 30 0RF amoxicillin-pot clavulanate 875-125 mg tablet 1 tab PO BID Qty: 20 0RF aspirin 81 mg Tablet,Delayed Release (Dr/Ec) 81 mg PO QAM Qty: 0 0RF Continued pantoprazole 40 mg tablet,delayed release (DR/EC) 40 mg PO DAILY cholecalciferol (vitamin D3) 25 mcg (1,000 unit) Capsule 1,000 unit PO QAM Qty: 30 0RF (DME) Oxygen Home E0424 Liters Per Minute See Rx Instructions .ROUTE .MEDSUPPLY Qty: 1 0RF Rx Instructions: As directed - 2 L NC O2 at bedtime & with naps amlodipine [Norvasc] 5 mg Tablet 5 mg PO QAM Qty: 30 2RF aspirin 81 mg Tablet,Delayed Release (Dr/Ec) 81 mg PO QAM Qty: 90 3RF Rx Instructions: purchase [id number] anastrozole 1 mg tablet 1 mg PO DAILY levothyroxine 50 mcg tablet 50 mcg PO DAILY sertraline 50 mg tablet 50 mg PO DAILY atorvastatin 40 mg tablet 40 mg PO UD Discharge Orders: Discharge Order (Routine); Ordered 01/20/24 Ordered By: Srikanth Cerna Admission Data Admit Date/Time: 02/23/24 01:38 Attending Provider: Srikanth Cerna Admit Provider: Aaron Lora Primary Care Provider: Fartun Frank Other Providers: Wisam Malin; [facility]; [facility]; [facility],Home Healthcare; [facility],Referral Center Coding Level of Care Code 94695 INP/OBS DISCH >30 MIN Diagnoses Aspiration pneumonia J69.0 Metabolic encephalopathy G93.41 Acute respiratory failure with hypoxia J96.01 Thrombocytopenia D69.6 Elevated LFTs R79.89 Acute CHF (congestive heart failure) I50.9 Hypokalemia E87.6 Spina bifida, unspecified hydrocephalus presence, unspecified spinal region Q05.9 Spinal region: unspecified Presence of hydrocephalus: unspecified hydrocephalus presence Open wound of left thigh S71.102A Hypothyroidism E03.9 Lymphedema I89.0 Anemia D64.9 Primary hypertension I10 Hypertension type: primary hypertension Ischemic stroke I63.9
== END 2024-01-20 16:42 | disposition home health service (06) | DRG 871 ==
LOC: ED 18:14 → SUATTDRO 01-13 01:38 → EDINP 01-13 01:38 → 2S 01-13 03:15

== ENCOUNTER 2024-02-18 07:49 | Inpatient (IN) ==
--- NOTE | 2024-02-18 08:39 | Emergency Department Note ---
Impression & Plan Hypothermia, SOB (shortness of breath), Anemia, Hx of aspiration pneumonitis ED Provider Note NAME: JR DIAZ AGE: 73 SEX: F : 1950 ARRIVES VIA: Walk-In INFORMANT: [Patient][family] ED PROVIDER(S): [Aaron Blair MD] CHIEF COMPLAINT: Shortness of breath HISTORY OF PRESENT ILLNESS: The patient is a 73-year-old female with a history of spina bifida. She was discharged from our hospital around a month ago after being in for aspiration pneumonia. She was discharged on antibiotics. Over the last several days, the patient has been chilled and has felt cold. This morning, she felt short of breath. She oftentimes is hypothermic when she is ill and with the chills, the shortness of breath, the patient decided to come to the hospital for evaluation. There has been no cough. No stuffy nose or sore throat. No abdominal pain, vomiting or diarrhea, she does not have chest pain, no urinary complaints. Patient has chronic edema to her lower extremities, she has congenital deformities from . She has not noticed any increasing erythema to the lower extremities. PMHx/PSHx/Social Hx: See Below PHYSICAL EXAM: GENERAL: Patient is in no acute distress. HEENT: No acute trauma, normocephalic atraumatic, mucous membranes moist, no nasal congestion. NECK: No stridor, no adenopathy, no meningismus, trachea is midline. LUNGS: Clear to auscultation bilaterally when listening anterior, no wheeze, no rhonchi, breath sounds equal. HEART: 2/6 systolic murmur heard best at the right sternal border. ABDOMEN: Soft, nontender, no peritonitis. EXTREMITIES: No cyanosis. There are deformities to the bilateral lower extremities, she does have chronic edema bilaterally and some chronic skin change, no warmth to suggest cellulitis NEUROLOGIC: Oriented x 3, no acute motor or sensory deficits, no focal weakness. SKIN: No jaundice, no diaphoresis. DIFFERENTIAL DIAGNOSIS: Sepsis or bacteremia, pneumonia, aspiration, UTI, cellulitis, electrolyte imbalance, anemia, among others. EMERGENCY DEPARTMENT PROCEDURES: MEDICAL DECISION MAKING: There is no leukocytosis. The patient is anemic however, this appears to be consistent with her past history and the value today is within her typical range. There is a normal platelet count. No coagulopathy. VBG did not show acidosis or significant CO2 retention. No renal failure or significant electrolyte abnormality. BNP slightly elevated at 136, consistent with potential fluid overload. No liver enzyme elevation. ECG showed a normal sinus rhythm, no ST elevation. Cardiac enzyme testing x 1 is not consistent with acute cardiac injury. TSH was high however, the T4 was normal. Urinalysis did not show infection. Respiratory bio fire was negative. On exam, the patient complained of feeling chilled. She was found to be hypothermic. Patient had the David hugger applied. She was given a 500 cc saline bolus. She received IV cefepime as empiric antibiotic coverage. The patient presents with chills and shortness of breath. She feels very similar to how she felt a month ago when she was diagnosed with aspiration pneumonia. Given her past history, given her dyspnea, given the hypothermia, I do think she requires a hospital stay. I did speak with the patient and case management, the on-call hospitalist was consulted. Prior/Outside records/notes reviewed: Discharge summary note from 01/20/2024 discussing her presentation, her care and the plan moving forward. ECG per my interpretation: Indication was possible sepsis. The ECG shows a normal sinus rhythm with a rate of 78. There is no acute ST elevation, no PVCs, there is some nonspecific ST change. The QTc is 458. Continuous Cardiac Monitoring per my interpretation: An order was placed for continuous cardiac monitoring. The monitor shows a rate of 92 with normal sinus rhythm. Imaging/x-ray results per my interpretation: Chest x-ray shows some potential congestion in the right upper lobe versus changes secondary to the films of rotation. There was no CHF or pneumothorax. Chronic Medical/Social conditions affecting care: History of congenital deformities and spina bifida. Wheelchair-bound. Care/Management discussed with: Case management, the on-call hospitalist. Level of care consideration(s): After review of the information above and other included data: --I believe the patient requires escalation of care to admission DISPOSITION: Admission Past Med/Surg History Medical History Breast cancer Elevated LFTs Lymphedema Hypothyroidism Cellulitis Osteomyelitis Constipation Stage IV pressure ulcer Ulcers of both lower extremities Elevated LFTs Heart failure CAD (coronary artery disease) History of CVA (cerebrovascular accident) Traumatic open wound of left lower leg Transaminitis Stage III pressure ulcer Severe obstructive sleep apnea Apnea Chronic cough Hypokalemia Nausea & vomiting Dehydration Pressure ulcer of left calf Stroke Meningitis spinal 2019 Lymphedema of both lower extremities HTN (hypertension) Hiatal hernia Hypertension Spina bifida (06/21/13) Paraplegia (06/21/13) Neurogenic bladder (06/21/13) Surgical History H/O bone graft H/O section Hx of cholecystectomy Family History Father Hypertension Myocardial infarction Herniated disc Mother Myocardial infarction Colorectal cancer Uterine cancer Other Family history non-contributory Social History Smoking Status: Never smoker Second Hand Exposure: No; Do You Dip or Chew Tobacco: No; Hx Alcohol Use: No Hx Substance Use: No Preferred Language: Yi Communication Ability: Effective Visual Impairment: Limited Hearing Ability: Normal Computer Instructor Required: No Beliefs That Will Affect Care: None marital status: Current Living Situation: Spouse current occupational status: retired How many Children do You have: 2 Other Information That Helps Us Care for You: No Feels Safe at Home: Yes Safety Concerns: Feels Safe At This Time Diet: regular caffeine: Yes (tea) during the past year weight has: increased > 10 lbs Physical Activity Frequency: Does not Exercise Do you think of yourself as: straight/heterosexual Gender Identity: Female Assistive Devices: Mechanical Lift Allergies Allergies Allergy/AdvReac Type Severity Reaction Status Date / Time nalidixic acid Allergy Unknown Unknown Verified 12/15/23 13:30 Home Meds Home Medications Medication Instructions Recorded Confirmed pantoprazole 40 mg tablet,delayed 40 mg PO DAILY 10/20/21 02/18/24 release anastrozole 1 mg tablet 1 mg PO DAILY 10/23/22 02/18/24 levothyroxine 50 mcg tablet 50 mcg PO DAILY 10/23/22 02/18/24 atorvastatin 40 mg tablet 40 mg PO UD 01/13/24 02/18/24 sertraline 50 mg tablet 50 mg PO DAILY 01/13/24 02/18/24 Previous Rx's Medication Instructions Recorded Oxygen Home E0424 #1 ea 05/21/21 amlodipine 5 mg tablet (Norvasc) 5 mg PO QAM #30 tabs 05/21/21 cholecalciferol (vitamin D3) 25 1,000 unit PO QAM #30 caps 01/01/23 mcg (1,000 unit) capsule aspirin 81 mg tablet,delayed 81 mg PO QAM #0 tabs 01/20/24 release furosemide 40 mg tablet (Lasix) 40 mg PO Q OTHER DAY #30 tabs 01/20/24 potassium chloride 10 mEq 10 meq PO .qod #30 tabs 01/20/24 tablet,extended release Results & Data (ED) Vital Signs Vital Signs - 24 hr 02/18/24 07:50 02/18/24 07:57 02/18/24 08:19 Temperature 35.4 C L Temperature Source Temporal Artery Scan Pulse Rate 81 Pulse Rate [Apical] Pulse Rate from SpO2 Sensor Pulse Rhythm [Apical] Pulse Strength [Apical] Respiratory Rate 18 Respiratory Effort / Characteristics Non-Labored Non-Labored Spontaneous Respiratory Depth Normal Normal Respiratory Pattern Regular Regular Blood Pressure 128/75 Blood Pressure [Right Arm] Blood Pressure Mean 92 Blood Pressure Mean [Right Arm] Pulse Oximetry 95 Oxygen Delivery Method Room Air Room Air Room Air Sepsis Recent Fever Within 48 Hours No Sepsis New/Unexplained Change in Mental Status N/A Sepsis Action Taken by Nursing No Action Required 02/18/24 08:23 02/18/24 08:24 02/18/24 08:30 Temperature Temperature Source Pulse Rate 76 78 80 Pulse Rate [Apical] Pulse Rate from SpO2 Sensor 74 77 Pulse Rhythm [Apical] Pulse Strength [Apical] Respiratory Rate 16 15 Respiratory Effort / Characteristics Respiratory Depth Respiratory Pattern Blood Pressure Blood Pressure [Right Arm] Blood Pressure Mean Blood Pressure Mean [Right Arm] Pulse Oximetry 97 98 Oxygen Delivery Method Room Air Room Air Sepsis Recent Fever Within 48 Hours Sepsis New/Unexplained Change in Mental Status Sepsis Action Taken by Nursing 02/18/24 09:00 02/18/24 09:00 02/18/24 09:30 Temperature 33.9 C L Temperature Source Rectal Pulse Rate 66 75 Pulse Rate [Apical] Pulse Rate from SpO2 Sensor 67 75 Pulse Rhythm [Apical] Pulse Strength [Apical] Respiratory Rate 13 15 Respiratory Effort / Characteristics Respiratory Depth Respiratory Pattern Blood Pressure Blood Pressure [Right Arm] Blood Pressure Mean Blood Pressure Mean [Right Arm] Pulse Oximetry 97 93 Oxygen Delivery Method Room Air Room Air Sepsis Recent Fever Within 48 Hours Sepsis New/Unexplained Change in Mental Status Sepsis Action Taken by Nursing 02/18/24 10:00 02/18/24 10:00 02/18/24 10:12 Temperature 33.9 C L Temperature Source Rectal Pulse Rate 71 Pulse Rate [Apical] 81 Pulse Rate from SpO2 Sensor 72 Pulse Rhythm [Apical] Regular Pulse Strength [Apical] Normal Respiratory Rate 13 20 Respiratory Effort / Characteristics Non-Labored Spontaneous Respiratory Depth Normal Respiratory Pattern Regular Blood Pressure Blood Pressure [Right Arm] 135/77 Blood Pressure Mean Blood Pressure Mean [Right Arm] 96 Pulse Oximetry 96 98 Oxygen Delivery Method Room Air Room Air Sepsis Recent Fever Within 48 Hours Sepsis New/Unexplained Change in Mental Status Sepsis Action Taken by Nursing 02/18/24 10:30 Temperature Temperature Source Pulse Rate 73 Pulse Rate [Apical] Pulse Rate from SpO2 Sensor 74 Pulse Rhythm [Apical] Pulse Strength [Apical] Respiratory Rate 14 Respiratory Effort / Characteristics Respiratory Depth Respiratory Pattern Blood Pressure Blood Pressure [Right Arm] Blood Pressure Mean Blood Pressure Mean [Right Arm] Pulse Oximetry 98 Oxygen Delivery Method Sepsis Recent Fever Within 48 Hours Sepsis New/Unexplained Change in Mental Status Sepsis Action Taken by Longterm Medications Current Medication List: was personally reviewed by me Laboratory Data Attestation: I reviewed the patient's lab results. 02/18/24 08:24 02/18/24 08:24 Lab Results 02/18/24 02/18/24 02/18/24 Range/Units 08:24 08:44 09:13 WBC 4.59 L (4.8-10.8) K/ul RBC 3.09 L (4.20-5.40) M/uL Hgb 9.2 L (12.0-16.0) g/dl Hct 30.0 L (37.0-47.0) % MCV 97.1 (80.0-100.0) fL MCH 29.8 (25.0-34.0) pg MCHC 30.7 L (32.0-36.0) g/dL RDW Std Deviation 64.5 H (36.4-46.3) fL RDW Coeff of Deanna 18.0 H (11.5-14.5) % Plt Count 136 (130-400) K/uL MPV 11.4 (9.4-12.4) fL Immature Gran % (Auto) 0.2 % Neut % (Auto) 49.7 % Lymph % (Auto) 32.2 % [place] % (Auto) 7.6 % Eos % (Auto) 9.6 % Baso % (Auto) 0.7 % Neut # (Auto) 2.28 (1.40-6.50) K/uL Lymph # (Auto) 1.48 (1.20-3.40) K/uL [place] # (Auto) 0.35 (0.11-0.59) K/uL Eos # (Auto) 0.44 (0.00-0.50) K/uL Baso # (Auto) 0.03 (0.00-0.20) K/uL Immature Gran # (Auto) 0.01 (0.01-0.20) K/uL ESR 100 H (0-30) mm/hr PT 10.7 (9.0-12.0) Seconds INR 1.0 (0.9-1.1) APTT 30 (21-31) Seconds PTT Ratio 1.1 VBG pH 7.45 H (7.36-7.41) VBG pCO2 50 (38-50) mmHg VBG pO2 60 mmHg VBG HCO3 35 mmol/L VBG O2 Saturation 87.6 % VBG Base Excess 9.6 mEq/L Sodium 145 (136-145) mmol/L Potassium 4.5 (3.5-5.1) mmol/L Chloride 108 H (98-107) mmol/L Carbon Dioxide 33 H (21-32) mmol/L Anion Gap 4 (3-11) BUN 41 H (6-23) mg/dl Creatinine 0.47 L (0.6-1.2) mg/dl Est Cr Clr Drug Dosing Not Reportable Est GFR ( Amer) 114.4 ml/min Est GFR (Non-Af Amer) 98.7 ml/min BUN/Creatinine Ratio 87.2 H (10-20) Glucose 62 L (70-99(Fasting)) mg/dl Lactate 1.0 (0.4-2.0) mmol/L Calcium 9.5 (8.6-10.3) mg/dl Magnesium 1.9 (1.7-2.4) mg/dl Total Bilirubin 0.4 (0.2-1.0) mg/dl AST 30 (13-39) U/L ALT 34 (7-52) U/L Alkaline Phosphatase 104 (34-104) U/L Troponin I High Sens 6.6 (0-14) pg/ml C-Reactive Protein 1.24 H (0-0.5) mg/dl B-Natriuretic Peptide 136 H (0-100) pg/ml Total Protein 6.9 (6.0-8.3) gm/dl Albumin 3.6 (3.4-5.0) gm/dl Globulin 3.3 (2.5-4.0) gm/dl Albumin/Globulin Ratio 1.1 (0.9-2) Procalcitonin < 0.02 (0-0.5) ng/ml TSH 21.850 H (0.300-4.500) uIu/ml Free T4 0.98 (0.61-1.60) ng/dl Urine Color Yellow Urine Appearance Clear (Clear) Urine pH 8.5 H (4.5-7.5) Ur Specific [place] 1.013 (1.000-1.030) Urine Protein Negative (Negative) Urine Glucose (UA) Negative (Negative) Urine Ketones Negative (Negative) Urine Blood Negative (Negative) Urine Nitrite Negative (Negative) Urine Bilirubin Negative (Negative) Urine Urobilinogen Negative (Negative) Ur Leukocyte Esterase Negative (Negative) Adenovirus (PCR) Not Detected (NotDetected) B. pertussis DNA (PCR) Not Detected (NotDetected) B.parapertussis DNA PCR Not Detected (NotDetected) C. pneumoniae DNA (PCR) Not Detected (NotDetected) Coronavirus OC43 (PCR) Not Detected (NotDetected) Coronavirus HKU1 (PCR) Not Detected (NotDetected) Coronavirus 229E (PCR) Not Detected (NotDetected) SARS-CoV-2 (PCR) Not Detected (NotDetected) Coronavirus NL63 (PCR) Not Detected (NotDetected) Human Metapneumovir PCR Not Detected (NotDetected) Influenza Type A (PCR) Not Detected (NotDetected) Influenza Type B (PCR) Not Detected (NotDetected) M. pneumoniae (PCR) Not Detected (NotDetected) Parainfluenza 1 (PCR) Not Detected (NotDetected) Parainfluenza 2 (PCR) Not Detected (NotDetected) Parainfluenza 3 (PCR) Not Detected (NotDetected) Parainfluenza 4 (PCR) Not Detected (NotDetected) RSV (PCR) Not Detected (NotDetected) Entero/Rhino (PCR) Not Detected (NotDetected) Administered Medications Cefepime HCl 2,000 mg/ Syringe 20 mls @ 5 mls/min IV Q8H POLLY; Protocol Stop: 02/25/24 14:59 Last Admin: 02/18/24 15:30 Dose: 5 mls/min Documented By: KELLY Discontinued Medications Cefepime HCl (Maxipime) 2,000 mg in 20 mls @ 5 mls/min IV NOW STA; Protocol Stop: 02/18/24 08:35 Last Admin: 02/18/24 09:23 Dose: 5 mls/min Documented By: MAE Sodium Chloride (Nss) 500 mls @ 999 mls/hr IV .Q31M ONE Stop: 02/18/24 09:02 Last Infusion: 02/18/24 10:03 Dose: Infused Documented By: Admin: 02/18/24 09:24 Dose: 999 mls/hr Documented By: MAE Doxycycline Hyclate 100 mg/ (Dextrose) 100 mls @ 50 mls/hr IV NOW STA Stop: 02/18/24 13:46 Last Admin: 02/18/24 13:30 Dose: 50 mls/hr Documented By: KELLY Imaging Data Radiologist's Impression: Chest X-Ray 02/18/24 08:25 XR chest 1V portable HISTORY: Dyspnea COMPARISON: Chest 01/20/2024. FINDINGS: No pneumothorax. The heart remains enlarged. No new focal lung consolidations to suggest a pneumonia. Bibasilar linear densities favor subsegmental atelectasis. There is mild central pulmonary vascular congestion without overt edema. This is similar to the prior study. No acute fractures. IMPRESSION: 1. Cardiomegaly and mild congestive change persists. 2. Bibasilar linear densities favor subsegmental atelectasis. This has improved in the interval. ACT 112: Negative or not required by law. Electronically signed by: Joseph Sorensen M.D. 02/18/2024 9:49 AM Discharge Plan Visit Data Chief Complaint: Shortness of Breath/Dyspnea Stated Complaint: sob, pneumonia ED Provider: Aaron Blair Discharge Problem: Hypothermia, SOB (shortness of breath), Anemia, Hx of aspiration pneumonitis Patient Disposition: Admitted As Inpatient Condition: Fair Discharge Instructions Interventions: ED Discharge Assessment Last Done: 02/18/24 11:29 Discharge Problem: Hypothermia Qualifiers: Encounter type: initial encounter Qualified Code(s): T68.XXXA - Hypothermia, initial encounter Anemia Qualifiers: Anemia type: unspecified type Qualified Code(s): D64.9 - Anemia, unspecified
[2024-02-18 08:50] LABS: Basophils # (auto) 0.03 K/uL (0.00-0.20); Basophils % (auto) 0.7 %; Eosinophils # (auto) 0.44 K/uL (0.00-0.50); Eosinophils % (auto) 9.6 %; Hemoglobin 9.2 g/dl (12.0-16.0); Immature Granulocytes # (auto) 0.01 K/uL (0.01-0.20); Immature Granulocytes % (auto) 0.2 %; Lymphocytes # (auto) 1.48 K/uL (1.20-3.40); Lymphocytes % (auto) 32.2 %; Mean Corpuscular Hemoglobin 29.8 pg (25.0-34.0); Mean Corpuscular Hgb Conc 30.7 g/dL (32.0-36.0); Mean Corpuscular Volume 97.1 fL (80.0-100.0); Mean Platelet Volume 11.4 fL (9.4-12.4); Monocytes # (auto) 0.35 K/uL (0.11-0.59); Monocytes % (auto) 7.6 %; Neutrophils # (auto) 2.28 K/uL (1.40-6.50); Neutrophils % (auto) 49.7 %; Platelet Count 136 K/uL (130-400); RDW Standard Deviation 64.5 fL (36.4-46.3); Red Blood Count 3.09 M/uL (4.20-5.40); White Blood Count 4.59 K/ul (4.8-10.8)
[2024-02-18 08:52] LABS: Partial Thromboplastin Ratio 1.1; Partial Thromboplastin Time 30 Seconds (21-31); Prothrombin Time 10.7 Seconds (9.0-12.0)
[2024-02-18 09:00] LABS: Alanine Aminotransferase 34 U/L (7-52); Albumin Globulin Ratio 1.1 (0.9-2); Albumin Level 3.6 gm/dl (3.4-5.0); Alkaline Phosphatase 104 U/L (34-104); Anion Gap 4 (3-11); Aspartate Aminotransferase 30 U/L (13-39); BUN Creatinine Ratio 87.2 (10-20); Bilirubin,Total 0.4 mg/dl (0.2-1.0); Blood Urea Nitrogen 41 mg/dl (6-23); Calcium 9.5 mg/dl (8.6-10.3); Carbon Dioxide 33 mmol/L (21-32); Chloride 108 mmol/L (98-107); Est GFR (African American) 114.4 ml/min; Est GFR (Non-African American) 98.7 ml/min; Globulin 3.3 gm/dl (2.5-4.0); Glucose 62 mg/dl (70-99(Fasting)); Magnesium 1.9 mg/dl (1.7-2.4); Potassium 4.5 mmol/L (3.5-5.1); Sodium 145 mmol/L (136-145); Total Protein 6.9 gm/dl (6.0-8.3)
[2024-02-18 09:06] LABS: Troponin I High Sensitivity 6.6 pg/ml (0-14)
[2024-02-18 09:23] LABS: Base Excess VBG 9.6 mEq/L; HCO3 VBG 35 mmol/L; Oxygen Saturation VBG 87.6 %; PCO2 VBG 50 mmHg (38-50); PO2 VBG 60 mmHg; pH VBG 7.45 (7.36-7.41)
[2024-02-18] MEDS: CEFEPIME 2,000 MG/20 ML VIAL IV STA (09:23)
[2024-02-18] MEDS: SODIUM CHLORIDE 0.9% 500 ML IV ONE (09:24)
[2024-02-18 09:31] LABS: Adenovirus PCR Not Detected (NotDetected); Bordetella parapertussis PCR Not Detected (NotDetected); Bordetella pertussis PCR Not Detected (NotDetected); Chlamydia pneumoniae PCR Not Detected (NotDetected); Coronavirus 229E PCR Not Detected (NotDetected); Coronavirus CoV-2 (COVID19)PCR Not Detected (NotDetected); Coronavirus HKU1 PCR Not Detected (NotDetected); Coronavirus NL63 PCR Not Detected (NotDetected); Coronavirus OC43PCR Not Detected (NotDetected); Human Metapneumovirus PCR Not Detected (NotDetected); Influenza A PCR Not Detected (NotDetected); Influenza B PCR Not Detected (NotDetected); Mycoplasma pneumoniae PCR Not Detected (NotDetected); Parainfluenza Virus 1 PCR Not Detected (NotDetected); Parainfluenza Virus 2 PCR Not Detected (NotDetected); Parainfluenza Virus 3 PCR Not Detected (NotDetected); Parainfluenza Virus 4 PCR Not Detected (NotDetected); Respiratory Syncytial VirusPCR Not Detected (NotDetected); Rhinovirus/Enterovirus PCR Not Detected (NotDetected)
[2024-02-18 09:45] LABS: Appearance Urine Clear (Clear); Bilirubin Urine Negative (Negative); Blood Urine Negative (Negative); Color Urine Yellow; Glucose Urine UA Negative (Negative); Ketones Urine Negative (Negative); Leukocyte Esterase Urine Negative (Negative); Nitrite Urine Negative (Negative); Protein Urine Negative (Negative); Specific Gravity Urine 1.013 (1.000-1.030); Urobilinogen Urine Negative (Negative); pH Urine 8.5 (4.5-7.5)
--- NOTE | 2024-02-18 09:51 | XRay Report ---
XR chest 1V portable HISTORY: Dyspnea COMPARISON: Chest 01/20/2024. FINDINGS: No pneumothorax. The heart remains enlarged. No new focal lung consolidations to suggest a pneumonia. Bibasilar linear densities favor subsegmental atelectasis. There is mild central pulmonary vascular congestion without overt edema. This is similar to the prior study. No acute fractures. IMPRESSION: 1. Cardiomegaly and mild congestive change persists. 2. Bibasilar linear densities favor subsegmental atelectasis. This has improved in the interval. ACT 112: Negative or not required by law. Electronically signed by: Joseph Sorensen M.D. 02/18/2024 9:49 AM
--- NOTE | 2024-02-18 10:06 | History & Physical Report ---
Date of Service February 18, 2024 Assessment & Plan (1) Hypothermia: Plan: -Admit to med/surge -Currently hypothermic with a temperature of 34C but otherwise stable -Presented to the ED this am for ongoing SOB and feeling cold over the past 24 hours -Patient has a hx of becoming hypothermic when she has an acute infection -At this time the patient is without signs of acute infection as she is without a leukocytosis, procal and lactate are WNL, CXR and UA are negative for acute infection, she is without signs of recurrent or new skin infections -Full respiratory biofire negative, no recent abdominal discomfort or diarrhea -S/P one dose of Cefepime and 500 mL NSS in the ED -Blood cultures were obtain in the ED, continue to follow -Will obtain stat TSH, ESR, and CRP for further evaluation -She does have a previous hx of previous wounds growing Pseudomonas and MRSA -For now will continue with empiric Cefepime and Doxycycline to cover possible pulmonary and skin sources as these are the most likely at this -Continue David Hugger until she is euthermic -SQ lovenox for DVT PPX -HH diet with 2gm sodium and 1800 mL fluid restriction -AM CBC, BMP, mag (2) SOB (shortness of breath): Plan: -Patient has been experiencing mild SOB over the past 24 hours -Was diagnosed with HFpEF on last admission and start on 40 mg PO Lasix [id number] -Noted to have signs of Cardiomegaly with mild congestive changes but without signs of pulmonary edema or pleural effusions -Has been stable on RA and without respiratory distress -High sen trop is WNL, possible slight ST segment elevation in lead V6 compared to previous ECG -Patient denies chest pain -BNP mild elevated at 136 today, was in the 190's on previous admission -At this time the patient's SOB is most likely due to mild volume overload from her known HFpEF -Low suspicion for PE at this time as she is stable on RA, without pleuritic chest pain, and has been hemodynamically stable -Will repeat high sen trop now to continue monitoring for possible ACS -Will hold diuretics today to ensure she remains hemodynamically stable until acute infection is ruled out -Will start pulmonary hygiene with incentive spirometry and flutter therapy -Start HH diet with 2gm sodium and 1800 mL fluid restriction -Continue home CPAP HS -If stable tomorrow can start IV or PO lasix for light diuresis (3) Hypothyroidism: Plan: -Will follow TSH ordered on admission -Continue home Levothyroxine (4) Hypertension: Plan: -Stable -Will hold PO Amlodipine for now as she is hemodynamically stable with possible unidentified infection on admission (5) Lymphedema: Plan: -Conitnue to follow with vascular surgery on discharge (6) Spina bifida: Plan: -Weakness at baseline -Continue supportive care (7) Ischemic stroke: Plan: -Continue aspirin and statin (8) Breast cancer: Plan: -Continue anastrazole Plan The patient was discussed with Dr. 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 She was noted to be hypothermic at 33.9C on arrival but otherwise stable. Labs including CBC, CMP, high sen trop, BNP, procal, UA, and full respiratory biofire were unremarkable. Chest xray was read as 1. Cardiomegaly and mild congestive change persists. 2. Bibasilar linear densities favor subsegmental atelectasis. This has improved in the interval.. Prior to admission the patient was given a dose of cefepime and 500 mL NSS. We were asked to admit the patient due to a long hx of hypothermia with acute infections and the patient being high risk for infection. At the time of the exam the patient was lying in bed in no acute distress with her sitting bedside, history was obtained from both. The patient had been doing well since discharge at the beginning of the month for aspiration pneumonia. Her explains that the patient started to experience intermittent episodes of confusion on 10/17, similar to her normal presentation when she has an infection. He kept asking her if she was cold but she denies any chills. Last night they state that the patient felt very cold and was feeling slightly SOB. Due to her previous admissions for hypothermia with infections he brought her to the ED today. Her confirms that the patient is currently at her neurologic baseline. The patient denies any symptoms other than feeling cold at the time of exam. Denies recent fever, cough, chest pain, abd pain, nausea, vomiting, diarrhea, dysuria, hematuria, and new wounds. When asked, her states that the patient was recently discharged from the wound care clinic as her Bl posterior knee wounds have healed. He denies new wounds on the legs, buttocks, or back. She did not have her am meds prior to arrival today. We discussed code status, the patient is a full code and her would make medical decisions for her if she cannot make them herself. Please refer to Dr. Olmos's attestation for any changes to the treatment plan Allergies Allergy/AdvReac Type Severity Reaction Status Date / Time nalidixic acid Allergy Unknown Unknown Verified 12/15/23 13:30 Home Medications Medication Instructions Recorded Confirmed Type Oxygen Home E0424 #1 ea 05/21/21 01/13/24 Rx amlodipine 5 mg tablet (Norvasc) 5 mg PO QAM #30 tabs 05/21/21 02/18/24 Rx pantoprazole 40 mg tablet,delayed 40 mg PO DAILY 10/20/21 02/18/24 History release anastrozole 1 mg tablet 1 mg PO DAILY 10/23/22 02/18/24 History levothyroxine 50 mcg tablet 50 mcg PO DAILY 10/23/22 02/18/24 History cholecalciferol (vitamin D3) 25 1,000 unit PO QAM #30 caps 01/01/23 02/18/24 Rx mcg (1,000 unit) capsule atorvastatin 40 mg tablet 40 mg PO UD 01/13/24 02/18/24 History sertraline 50 mg tablet 50 mg PO DAILY 01/13/24 02/18/24 History aspirin 81 mg tablet,delayed 81 mg PO QAM #0 tabs 01/20/24 02/18/24 Rx release furosemide 40 mg tablet (Lasix) 40 mg PO Q OTHER DAY #30 tabs 01/20/24 02/18/24 Rx potassium chloride 10 mEq 10 meq PO .qod #30 tabs 01/20/24 02/18/24 Rx tablet,extended release Past Med/Surg History Medical History (Updated 02/18/24 @ 10:48 by Juan Hilario PA-C) Breast cancer Elevated LFTs Lymphedema Hypothyroidism Cellulitis Osteomyelitis Constipation Stage IV pressure ulcer Ulcers of both lower extremities Elevated LFTs Heart failure CAD (coronary artery disease) History of CVA (cerebrovascular accident) Traumatic open wound of left lower leg Transaminitis Stage III pressure ulcer Severe obstructive sleep apnea Apnea Chronic cough Hypokalemia Nausea & vomiting Dehydration Pressure ulcer of left calf Stroke Meningitis spinal 2019 Lymphedema of both lower extremities HTN (hypertension) Hiatal hernia Hypertension Spina bifida (06/21/13) Paraplegia (06/21/13) Neurogenic bladder (06/21/13) Surgical History H/O bone graft H/O section Hx of cholecystectomy Family History Father Hypertension Myocardial infarction Herniated disc Mother Myocardial infarction Colorectal cancer Uterine cancer Other Family history non-contributory Social History Smoking Status: Never smoker Second Hand Exposure: No; Do You Dip or Chew Tobacco: No; Hx Alcohol Use: Yes Hx Substance Use: No Preferred Language: Singaporean Communication Ability: Effective Visual Impairment: Limited Hearing Ability: Normal Staffing Coordinator Required: No Beliefs That Will Affect Care: None marital status: Current Living Situation: Spouse current occupational status: retired How many Children do You have: 2 Feels Safe at Home: Yes Diet: regular caffeine: Yes (tea) during the past year weight has: increased > 10 lbs Physical Activity Frequency: Does not Exercise Do you think of yourself as: straight/heterosexual Gender Identity: Female Assistive Devices: Scooter/Electric Scooter Physical Exam Physical Exam: Physical Exam: General: In no acute distress, stated age, chronically ill appearing but non- toxic HEENT: Normocephalic, atraumatic, no scleral icterus, pupils around round, symmetrical, and reactive to light, moist mucus membranes, trachea midline, no thyromegaly Chest/Pulm: No respiratory distress, symmetrical chest expansion, scattered crackles noted in the BL lower and mid lung neri Cardiac: RRR, no murmurs noted Abdomen: Negative for ascites and bruising, normoactive bowel sounds, soft, non-tender to palpation throughout : Curtis cath is in place and draining clear, yellow, urine Musculoskeletal: No acute trauma, able to voluntarily move upper extremities, baseline BL LE weakness noted Extremities: Radial, dorsalis pedis, and posterior tibial pulses are intact and symmetrical, chronic BL LE lymphedema noted Skin: Patient without signs of wounds or infection at the site of previous infection on the BL posterior knees, no other signs of infection noted on skin exam Neuro: Alert and oriented to person, place, month, year, no focal defects, CN II-XII tested and intact, chronic BL LE weakness at baseline, no tremors noted Psych: No acute distress, calm and cooperative during the exam Results & Data Results & Data Vital Signs (Past 12 Hours) Vital Signs Temp Pulse Resp BP Pulse Ox O2 Del Method 02/18/24 09:00 33.9 C L 02/18/24 08:24 78 02/18/24 08:19 Room Air 02/18/24 07:57 35.4 C L 81 18 128/75 95 Room Air 02/18/24 07:50 Room Air Laboratory Results Abnormal lab results 02/18/24 02/18/24 02/18/24 Range/Units 08:24 08:44 09:13 WBC 4.59 L (4.8-10.8) K/ul RBC 3.09 L (4.20-5.40) M/uL Hgb 9.2 L (12.0-16.0) g/dl Hct 30.0 L (37.0-47.0) % MCHC 30.7 L (32.0-36.0) g/dL RDW Std Deviation 64.5 H (36.4-46.3) fL RDW Coeff of Deanna 18.0 H (11.5-14.5) % VBG pH 7.45 H (7.36-7.41) Chloride 108 H (98-107) mmol/L Carbon Dioxide 33 H (21-32) mmol/L BUN 41 H (6-23) mg/dl Creatinine 0.47 L (0.6-1.2) mg/dl BUN/Creatinine Ratio 87.2 H (10-20) Glucose 62 L (70-99(Fasting)) mg/dl B-Natriuretic Peptide 136 H (0-100) pg/ml Urine pH 8.5 H (4.5-7.5) Diagnostic Findings Chest X-Ray 02/18/24 08:25 XR chest 1V portable HISTORY: Dyspnea COMPARISON: Chest 01/20/2024. FINDINGS: No pneumothorax. The heart remains enlarged. No new focal lung consolidations to suggest a pneumonia. Bibasilar linear densities favor subsegmental atelectasis. There is mild central pulmonary vascular congestion without overt edema. This is similar to the prior study. No acute fractures. IMPRESSION: 1. Cardiomegaly and mild congestive change persists. 2. Bibasilar linear densities favor subsegmental atelectasis. This has improved in the interval. ACT 112: Negative or not required by law. Electronically signed by: Joseph Sorensen M.D. 02/18/2024 9:49 AM Code Status & VTE Plan Code Status Full code VTE Prophylaxis Plan VTE Prophylaxis will be ordered: Yes Supervising Physician Co-Signing Physician Notes Patient seen and examined, chart reviewed, case discussed with Juan Hilario PA-C and I agree with the assessment and plan as above except as otherwise noted Labs and images reviewed 73-year-old female with past medical history of spina bifida, C. difficile, pressure ulcers, heart failure with preserved ejection fracture, breast cancer on anastrozole, neurogenic bladder, and history of aspiration/aspiration pneumonia recently discharged 01/20/2024 after admission for aspiration pneumonia presents with hypothermia. Patient had been doing well since her discharged up until approximately 3 days ago when she had intermittent confusion similar to prior episodes with infectious encephalopathy. She had increasing dyspnea, chills, and general feeling of unwellness. She was hypothermic in the ER. Her chest x-ray is clinically progressed/improved compared to prior however clinical history is consistent with recurrent pneumonia; Pro-Cameron is normal empirically covered with cefepime with adjuncts Doxy for MRSA/atypical coverage. Sputum culture and blood cultures are pending. She does have a history of both MRSA and pseudomonal cultures. Lower extremities do not appear acutely infected. There are hugger continued. Agree with assessment and management above. Patient's TSH is elevated, this may be reactive in the setting of acute infection; free T4 is normal PG Care Time/CCT Total # of Minutes Spent Total Time Spent with Patient: Total time spent is greater than 50% in coordination of care (as documented) at patient's floor/unit and/or counseling patient: [place] [address] INT INP/OBS CARE MIN Patient Type Established History Comprehensive Exam Comprehensive Medical Decision Making High Complexity Diagnoses Hypothermia T68.XXXA SOB (shortness of breath) R06.02 Hypothyroidism E03.9 Primary hypertension I10 Hypertension type: primary hypertension Lymphedema I89.0 Spina bifida, unspecified hydrocephalus presence, unspecified spinal region Q05.9 Presence of hydrocephalus: unspecified hydrocephalus presence Spinal region: unspecified Ischemic stroke I63.9 Breast cancer C50.919 (4) Hypertension Hypertension type: primary hypertension Qualified Code(s): I10 - Essential ( primary) hypertension (6) Spina bifida Presence of hydrocephalus: unspecified hydrocephalus presence Spinal region: unspecified Qualified Code(s): Q05.9 - Spina bifida, unspecified
[2024-02-18 11:35] LABS: T4 Free Thyroxine 0.98 ng/dl (0.61-1.60)
[2024-02-18 11:49] LABS: C Reactive Protein 1.24 mg/dl (0-0.5)
[2024-02-18] MEDS ORDERED: Patient's HEIGHT &/or WEIGHT Needed ONE (12:30)
[2024-02-18] MEDS: DOXYCYCLINE HYCLATE 100 MG in DEXTROSE 5% MINI-B 100 ML IV STA (13:30)
[2024-02-18] MEDS: CEFEPIME 2,000 MG in SYRINGE 0 ML IV SCH (15:30)
[2024-02-18] MEDS: ENOXAPARIN INJ 40 MG/0.4 ML SYR SQ SCH (20:36)
[2024-02-18] MEDS: DOXYCYCLINE HYCLATE 100 MG in DEXTROSE 5% MINI-B 100 ML IV SCH (20:36)
[2024-02-19] MEDS: ONDANSETRON INJ 2 MG/ML 2 ML VIAL IV PRN (03:48)
[2024-02-19] MEDS: LEVOTHYROXINE SODIUM 50 MCG TABLET PO SCH (05:52)
[2024-02-19 06:14] LABS: Eosinophils # (auto) 0.22 K/uL (0.00-0.50); Eosinophils % (auto) 4.2 %; Hematocrit (blood only) 26.2 % (37.0-47.0); Hemoglobin 8.5 g/dl (12.0-16.0); Immature Granulocytes # (auto) 0.02 K/uL (0.01-0.20); Immature Granulocytes % (auto) 0.4 %; Lymphocytes # (auto) 0.76 K/uL (1.20-3.40); Lymphocytes % (auto) 14.4 %; Mean Corpuscular Hemoglobin 30.6 pg (25.0-34.0); Mean Corpuscular Hgb Conc 32.4 g/dL (32.0-36.0); Mean Corpuscular Volume 94.2 fL (80.0-100.0); Mean Platelet Volume 11.3 fL (9.4-12.4); Monocytes # (auto) 0.37 K/uL (0.11-0.59); Neutrophils # (auto) 3.91 K/uL (1.40-6.50); Platelet Count 129 K/uL (130-400); RDW Coefficient of Variation 18.2 % (11.5-14.5); RDW Standard Deviation 62.7 fL (36.4-46.3); Red Blood Count 2.78 M/uL (4.20-5.40); White Blood Count 5.28 K/ul (4.8-10.8)
[2024-02-19 06:54] LABS: BUN Creatinine Ratio 72.9 (10-20); Calcium 8.8 mg/dl (8.6-10.3); Creatinine Clr Calc Pharmacy 101.9 ml/min; Est GFR (African American) 113.6 ml/min; Magnesium 1.8 mg/dl (1.7-2.4); Potassium 4.5 mmol/L (3.5-5.1)
--- NOTE | 2024-02-19 07:15 | Hospitalist Progress Note ---
Date of Service February 19, 2024 Assessment & Plan (1) Hypothermia: Plan: -concern for acute infection , CXR and UA are negative for acute infection, respiratory biofire negative, no recent abdominal discomfort or diarrhea,she is without signs of recurrent or new skin infections inflammatory markers are high -S/P one dose of Cefepime -Blood cultures were obtained, continue with empiric Cefepime and Doxycycline hx of previous wounds growing Pseudomonas and MRSA Despite negative UA will check catheter urine culture especially with the issues of her bowel habits (2) SOB (shortness of breath): Plan: -Patient has been experiencing mild SOB over the past 24 hours -HFpEF echo 12/2423 on 40 mg PO Lasix [id number] -proximal skin changes on chest x-ray make Lasix daily. Follow potassium -High sen trop is WNL, - 2gm sodium and 1800 mL fluid restriction -Continue home CPAP HS (3) Hypothyroidism: Plan: tsh elevated T 4 normal no med changes (4) Spina bifida: Plan: -Weakness at baseline -Continue supportive care (5) Ischemic stroke: Plan: -Continue aspirin and statin (6) Breast cancer: Plan: -Continue anastrazole Plan -SQ lovenox for DVT PPX Admission and Anticipated Discharge Date Admission Date: February 18, 2024 Subjective Patient is much better today. She relates that she has spina bifida and is typically nonambulatory. She relates that she is typically on a bowel regiment with rectal stimulation causing her to have bowel movements. She denies focal complaints or problems related to me that she thought she had pneumonia although chest x-ray is negative she is on antibiotics Physical Exam Physical Exam: Awake alert appropriate. No physical signs of infection at this time previous history of skin issues are not currently consistent and lung exam is clear. Initial urinalysis was negative culture is pending. Abdomen exam NABS soft and nontender Results & Data Results & Data Vital Signs (Past 12 Hours) Vital Signs Temp Pulse Resp BP Pulse Ox O2 Del Method 02/19/24 03:50 98.1 F 02/18/24 22:42 97.9 F 02/18/24 21:40 99.3 F 02/18/24 21:31 Room Air 02/18/24 20:35 97.9 F 106 H 16 130/67 94 Room Air Laboratory Results Reviewed CBC reviewed chemistry PG Care Time/CCT Total # of Minutes Spent Total Time Spent with Patient: Total time spent is greater than 50% in coordination of care (as documented) at patient's floor/unit and/or counseling patient: Coding Level of Care Code 22616 SUB INP/OBS CARE 235MIN Diagnoses Hypothermia T68.XXXA SOB (shortness of breath) R06.02 Hypothyroidism E03.9 Spina bifida, unspecified hydrocephalus presence, unspecified spinal region Q05.9 Presence of hydrocephalus: unspecified hydrocephalus presence Spinal region: unspecified Ischemic stroke I63.9 Breast cancer C50.919 (4) Spina bifida Presence of hydrocephalus: unspecified hydrocephalus presence Spinal region: unspecified Qualified Code(s): Q05.9 - Spina bifida, unspecified
[2024-02-19] MEDS: ASPIRIN 81 MG ECTAB PO SCH (08:37)
[2024-02-19] MEDS: POTASSIUM CHLORIDE 10 MEQ TABCR PO SCH (08:37)
[2024-02-19] MEDS: ANASTROZOLE 1 MG TAB PO SCH (08:37)
[2024-02-19] MEDS: ATORVASTATIN 40 MG TAB PO SCH (08:37)
[2024-02-19] MEDS: PANTOprazole 40 MG TAB PO SCH (08:37)
[2024-02-19] MEDS: SERTRALINE HCL 50 MG TABLET PO SCH (08:38)
[2024-02-20 06:53] LABS: Basophils # (auto) 0.01 K/uL (0.00-0.20); Basophils % (auto) 0.3 %; Eosinophils % (auto) 7.7 %; Hematocrit (blood only) 23.9 % (37.0-47.0); Hemoglobin 7.7 g/dl (12.0-16.0); Hypochromasia Present; Immature Granulocytes # (auto) 0.01 K/uL (0.01-0.20); Immature Granulocytes % (auto) 0.3 %; Lymphocytes # (auto) 1.44 K/uL (1.20-3.40); Lymphocytes % (auto) 36.7 %; Mean Corpuscular Hemoglobin 30.8 pg (25.0-34.0); Mean Corpuscular Hgb Conc 32.2 g/dL (32.0-36.0); Mean Corpuscular Volume 95.6 fL (80.0-100.0); Mean Platelet Volume 10.9 fL (9.4-12.4); Monocytes # (auto) 0.41 K/uL (0.11-0.59); Monocytes % (auto) 10.5 %; Neutrophils # (auto) 1.75 K/uL (1.40-6.50); Neutrophils % (auto) 44.5 %; Platelet Count 102 K/uL (130-400); RDW Coefficient of Variation 18.2 % (11.5-14.5); RDW Standard Deviation 63.7 fL (36.4-46.3); White Blood Count 3.92 K/ul (4.8-10.8)
[2024-02-20 06:55] LABS: BUN Creatinine Ratio 61.7 (10-20); Calcium 8.5 mg/dl (8.6-10.3); Creatinine Clr Calc Pharmacy 104.1 ml/min; Est GFR (African American) 114.4 ml/min; Est GFR (Non-African American) 98.7 ml/min; Magnesium 1.8 mg/dl (1.7-2.4); Potassium 4.4 mmol/L (3.5-5.1)
--- NOTE | 2024-02-20 07:34 | Hospitalist Progress Note ---
Date of Service February 20, 2024 Assessment & Plan (1) Anemia: Plan: Anemia with decreasing hematocrit, no obvious signs of blood loss, CT abd/pelvis without significant changes, previous cholecystectomy ESR 100, no defined source for infection, atelectasis on CXR , stopping antibiotics today, no temporal artery pain no muscular pain CT of chest ordered, (2) Hypothermia: Plan: -concern for acute infection is waining, no focal clinical signs , CXR and UA are negative for acute infection, respiratory biofire negative, no recent abdominal discomfort or diarrhea,she is without signs of recurrent or new skin infections, CT abd/pelvis neg, CT chest pending inflammatory markers are high-repeat in am -S/P one dose of Cefepime -Blood cultures negative x 4, ua negative x2 stopping all antibiotics (3) SOB (shortness of breath): Plan: -Patient has been experiencing mild SOB over the past 24 hours -HFpEF echo 12/2423 on 40 mg PO Lasix [id number] -proximal skin changes on chest x-ray make Lasix daily. Follow potassium -High sen trop is WNL, - 2gm sodium and 1800 mL fluid restriction -Continue home CPAP HS (4) Hypothyroidism: Plan: tsh elevated T 4 normal no med changes (5) Ischemic stroke: Plan: -Continue aspirin and statin (6) Breast cancer: Plan: -Continue anastrazole Plan -SQ lovenox for DVT PPX Admission and Anticipated Discharge Date Admission Date: February 18, 2024 Subjective Patient is much better today. She relates that she has spina bifida and is typically nonambulatory. She relates that she is typically on a bowel regiment with rectal stimulation causing her to have bowel movements. She denies focal complaints or problems related to me no definite infectious source, she remains on antibiotics Very High ESR , h/o breast cancer, no changes seen on CT abd pelvis Physical Exam Physical Exam: Awake alert appropriate. No physical signs of infection at this time previous history of skin issues are not currently consistent and lung exam is clear. Initial urinalysis was negative culture is pending. Abdomen exam NABS soft and nontender Results & Data Results & Data Vital Signs (Past 12 Hours) Vital Signs Temp Pulse Resp BP Pulse Ox O2 Del Method 02/19/24 21:28 97.9 F 92 H 16 137/78 94 Room Air 02/19/24 20:25 Room Air Laboratory Results chemistry reviewed cbc reviewed PG Care Time/CCT Total # of Minutes Spent Total Time Spent with Patient: Total time spent is greater than 50% in coordination of care (as documented) at patient's floor/unit and/or counseling patient: Coding Level of Care Code 47772 SUB INP/OBS CARE 3/50MIN Diagnoses Anemia D64.9 Anemia type: unspecified type Hypothermia T68.XXXA SOB (shortness of breath) R06.02 Hypothyroidism E03.9 Ischemic stroke I63.9 Breast cancer C50.919 (1) Anemia Anemia type: unspecified type Qualified Code(s): D64.9 - Anemia, unspecified
[2024-02-20] MEDS: OPTIRAY 320 100ml IV ONE (10:27)
--- NOTE | 2024-02-20 10:50 | CT Scan Report ---
CT abd pelvis oral and IV con CLINICAL HISTORY: acute blood loss anemia eval for retroperitoneal b TECHNIQUE: Helical axial images of the abdomen and pelvis were obtained and displayed. Automated dose lowering techniques and/or adjustment according to patient size were utilized for this exam. This e xam was performed with intravenous contrast. CT DOSE: 1104.54 mGy.cm COMPARISON: Comparison is made to CT abdomen pelvis 05/20/2021 FINDINGS: Lower chest: Trace bilateral pleural effusions with underlying atelectasis. Liver: Small left renal cyst is seen. Gallbladder and biliary tree: Patient is status post cholecystectomy. No intra- or extrahepatic bilia ry ductal dilation. Pancreas: Unremarkable, no focal lesions. Spleen: Unremarkable. Adrenals: Unremarkable. Kidneys and ureters: Renal cysts are seen. Nonobstructive renal stones are seen. Bladder: Curtis catheter is seen. Reproductive organs: Unremarkable. Bowel: Appendix is not seen. No secondary signs of appendicitis. A small amount of fluid is noted in the distal esophagus. Lymph nodes Retroperitoneal: Unremarkable. Pelvic: Unremarkable. Mesenteric: Unremarkable. Peritoneum: Normal. Vessels: Diffuse superficial varices are seen. Abdominal wall: Umbilical hernia is seen. Again noted is a\in the general change in the pelvis with p elvic floor collapse and posterior orientation of the anus. Soft tissue swelling is seen in the depen dent soft tissues. System in the axial with calcifications again seen in the lumbar spine. Diffuse anabella dy wall edema is increased from prior exam. Bones: Degenerative changes in the visualized spine. Bony destruction is in the right greater than le ft hip joints. Scoliosis and posterior fusion defects are unchanged. IMPRESSION: 1. No evidence of retroperitoneal bleed. 2. Chronic changes of posterior spinal fusion defects and pelvic floor collapsed with unchanged august harry edema. 3. Mild increase in body wall edema compatible with third spacing. 4. Trace bilateral pleural effusions with underlying atelectasis. 5. Additional findings as above. ACT 112: Negative or not required by law. Electronically signed by: Ever Hunter M.D. 02/20/2024 10:48 AM
--- NOTE | 2024-02-20 16:12 | CT Scan Report ---
CT chest diagnostic wo con CLINICAL HISTORY: h/o breast cancer ESR 100 TECHNIQUE: Multidetector row helical CT of the chest was performed. Coronal and sagittal reformations were obtained. Automated dose lowering techniques and/or adjustment according to patient size were u tilized for this exam. CT DOSE: 948.12 mGy.cm Comparison: Comparison is made to CT chest 01/15/2024 FINDINGS: Lungs and pleura: Atelectasis versus scarring is seen in the dependent portions of the lungs. Heart and pericardium: Heart size is normal. No pericardial effusion. Vessels: Moderate atherosclerotic changes in the aorta and coronary arteries. Mediastinum and shannon: Unremarkable. Chest wall and lower neck: Unremarkable. Abdomen: For findings below the diaphragm, please refer to CT of the abdomen dated the same. Bones: Dextroscoliosis is seen. IMPRESSION: No evidence of recurrent or metastatic disease. There is no airspace opacities have resolved. There i s mild bilateral atelectasis. ACT 112: Negative or not required by law. Electronically signed by: Ever Hunter M.D. 02/20/2024 4:11 PM
--- NOTE | 2024-02-21 07:01 | Electrocardiogram Report ---
Test Reason : Blood Pressure : / mmHG Vent. Rate : 078 BPM Atrial Rate : 078 BPM P-R Int : 150 ms QRS Dur : 090 ms QT Int : 402 ms P-R-T Axes : 051 062 087 degrees QTc Int : 458 ms Poor data quality, interpretation may be adversely affected Normal sinus rhythm Normal ECG When compared with ECG of 18-JAN-2024 12:45, Nonspecific T wave abnormality no longer evident in Inferior leads Nonspecific T wave abnormality, improved in Anterolateral leads Confirmed by Jake Jaime ([id number]) on 02/21/2024 7:01:10 AM Referred By: Confirmed By:Jake Jaime
[2024-02-21 08:23] LABS: Basophils # (auto) 0.01 K/uL (0.00-0.20); Basophils % (auto) 0.3 %; Eosinophils # (auto) 0.33 K/uL (0.00-0.50); Eosinophils % (auto) 8.6 %; Hematocrit (blood only) 23.5 % (37.0-47.0); Hemoglobin 7.7 g/dl (12.0-16.0); Hypochromasia Present; Immature Granulocytes # (auto) 0.01 K/uL (0.01-0.20); Immature Granulocytes % (auto) 0.3 %; Lymphocytes # (auto) 1.08 K/uL (1.20-3.40); Lymphocytes % (auto) 28.3 %; Mean Corpuscular Hemoglobin 30.9 pg (25.0-34.0); Mean Corpuscular Hgb Conc 32.8 g/dL (32.0-36.0); Mean Corpuscular Volume 94.4 fL (80.0-100.0); Monocytes # (auto) 0.39 K/uL (0.11-0.59); Monocytes % (auto) 10.2 %; Neutrophils % (auto) 52.3 %; Platelet Count 104 K/uL (130-400); Polychromasia 1+; RDW Coefficient of Variation 17.7 % (11.5-14.5); RDW Standard Deviation 61.3 fL (36.4-46.3); Red Blood Count 2.49 M/uL (4.20-5.40); White Blood Count 3.82 K/ul (4.8-10.8)
[2024-02-21 08:30] LABS: BUN Creatinine Ratio 53.7 (10-20); Calcium 8.3 mg/dl (8.6-10.3); Creatinine Clr Calc Pharmacy 119.2 ml/min; Est GFR (African American) 119.6 ml/min; Est GFR (Non-African American) 103.2 ml/min; Magnesium 1.7 mg/dl (1.7-2.4); Potassium 4.2 mmol/L (3.5-5.1)
--- NOTE | 2024-02-21 14:27 | Hospitalist Progress Note ---
Date of Service February 21, 2024 Assessment & Plan (1) Anemia: Plan: Anemia with decreasing hematocrit, no obvious signs of blood loss, CT abd/pelvis without significant changes, previous cholecystectomy ESR improved , no defined source for infection, atelectasis on CXR , stopping antibiotics today, no temporal artery pain no muscular pain CT of chest without significant changes (2) Hypothermia: Plan: -concern for acute infection is waining, no focal clinical signs , CXR and UA are negative for acute infection, respiratory biofire negative, no recent abdominal discomfort or diarrhea,she is without signs of recurrent or new skin infections, CT abd/pelvis neg, CT chest pending inflammatory markers are high-repeat in am -S/P one dose of Cefepime -Blood cultures negative x 4, ua negative x2 stopping all antibiotics (3) SOB (shortness of breath): Plan: -Patient has been experiencing mild SOB over the past 24 hours -HFpEF echo 12/2423 on 40 mg PO Lasix [id number] -proximal skin changes on chest x-ray make Lasix daily. Follow potassium -High sen trop is WNL, - 2gm sodium and 1800 mL fluid restriction -Continue home CPAP HS (4) Hypothyroidism: Plan: tsh elevated T 4 normal no med changes (5) Ischemic stroke: Plan: -Continue aspirin and statin (6) Breast cancer: Plan: -Continue anastrazole Plan -SQ lovenox for DVT PPX Admission and Anticipated Discharge Date Admission Date: February 18, 2024 Subjective Patient continues to feel better every day. She denies focal complaints or problems related to me no definite infectious source, she remains on antibiotics Very High ESR , h/o breast cancer, no changes seen on CT chest abd pelvis Physical Exam Physical Exam: Awake alert appropriate. No physical signs of infection at this time previous history of skin issues are not currently consistent and lung exam is clear. Initial urinalysis was negative culture is pending. Abdomen exam NABS soft and nontender Results & Data Results & Data Vital Signs (Past 12 Hours) Vital Signs Temp Pulse Resp BP Pulse Ox O2 Del Method 02/21/24 08:59 Room Air 02/21/24 07:23 98.1 F 76 16 119/69 90 Room Air Laboratory Results review ESR review cbc review chemistry PG Care Time/CCT Total # of Minutes Spent Total Time Spent with Patient: Total time spent is greater than 50% in coordination of care (as documented) at patient's floor/unit and/or counseling patient: Coding Level of Care Code 68051 SUB INP/OBS CARE 2MIN Diagnoses Anemia D64.9 Anemia type: unspecified type Hypothermia T68.XXXA SOB (shortness of breath) R06.02 Hypothyroidism E03.9 Ischemic stroke I63.9 Breast cancer C50.919 (1) Anemia Anemia type: unspecified type Qualified Code(s): D64.9 - Anemia, unspecified
[2024-02-21] MEDS: PROMETHAZINE HCL 6.25 MG in SODIUM CHLORIDE 0.9% 50 ML IV PRN (20:52)
[2024-02-22 09:45] LABS: Hematocrit (blood only) 26.1 % (37.0-47.0); Hemoglobin 8.2 g/dl (12.0-16.0); Mean Corpuscular Hemoglobin 30.3 pg (25.0-34.0); Mean Corpuscular Hgb Conc 31.4 g/dL (32.0-36.0); Mean Corpuscular Volume 96.3 fL (80.0-100.0); Mean Platelet Volume 11.2 fL (9.4-12.4); Platelet Count 133 K/uL (130-400); RDW Coefficient of Variation 17.8 % (11.5-14.5); RDW Standard Deviation 61.8 fL (36.4-46.3); Red Blood Count 2.71 M/uL (4.20-5.40); White Blood Count 5.49 K/ul (4.8-10.8)
[2024-02-22 09:54] LABS: BUN Creatinine Ratio 51.4 (10-20); Bilirubin,Total 0.4 mg/dl (0.2-1.0); Calcium 8.5 mg/dl (8.6-10.3); Creatinine Clr Calc Pharmacy 132.1 ml/min; Est GFR (African American) 123.7 ml/min; Est GFR (Non-African American) 106.8 ml/min; Potassium 3.9 mmol/L (3.5-5.1)
[2024-02-22] MEDS: FUROSEMIDE 40 MG TAB PO SCH (10:06)
[2024-02-22] MEDS: FAMOTIDINE 20MG IV PUSH 20 MG/5 ML SYR IV SCH (10:06)
[2024-02-22] MEDS: GADOBUTROL 65ML VIAL IV ONE (13:13)
--- NOTE | 2024-02-22 17:20 | Magnetic Resonance Report ---
MRI OF THE LUMBAR SPINE COMBO CLINICAL HISTORY: Infection. COMPARISON STUDY: Abdominal CT dated 02/20/2024, 05/20/2021, and 01/15/2009. TECHNIQUE: MRI of the lumbar spine was performed utilizing various T1 and T2-weighted sequences in th e axial and sagittal planes. Contrast enhanced sequences are acquired following the IV administration of 9 cc of Gadavist. The examination is degraded by large body habitus as well as motion. FINDINGS: Lumbar spine: Vertebral body height and alignment are maintained throughout the lumbar spine. Marrow signal intensity is heterogeneous. There is hyperlordosis of the lumbar spine as well as moderate dex troscoliosis. There is no evidence of spondylolysis. The transverse processes are grossly intact. No destructive bony change is seen involving the lumbar spine. There is extensive postlaminectomy change versus spinal dysraphism involving the posterior elements extending from L2 to S1. There is multilev el facet arthropathy throughout the lumbar region. Intervertebral discs: Disc desiccation and mild loss of height is seen throughout the lumbar spine. Spinal cord: Imaged portions of the lower thoracic cord are grossly unremarkable. The conus medullari s is not well-visualized. There is a large complex calcification containing fluid collection posterio r to the thecal sac at L2-L5. This measures approximately 7.5 x 6 x 6 cm and contains calcific debris . This communicates with the central spinal canal in the upper lumbar region and lumbosacral region, normal cervix contains the nerve roots of the cauda equina. This is typical for a myelomeningocele. T he central canal is largely filled with fat in the mid to lower lumbar region. Sacrum: Chronic deformity of the bony pelvis is similar to previous. There is no marrow edema seen in the sacrum. Nonspecific presacral soft tissue edema is noted. Soft tissues: As above, there is a large complex fluid collection posterior to the thecal sac which l ikely represents a myelomeningocele. This has been present on numerous prior examinations. There is m arked fatty atrophy of the paraspinous musculature. No fluid collection is seen. Bilateral renal cyst s measure up to 4 cm. No enhancing soft tissue lesion is suggested on the postcontrast images. IMPRESSION: 1. No acute bony abnormality is seen involving the lumbar spine. 2. Extensive post laminectomy change versus spinal dysraphism is again seen throughout the lumbar spi ne. Correlate with the clinical/surgical history. 3. A large complex collection posterior to the thecal sac is again noted and has not significantly ch anged as compared to numerous prior CT scans. This clearly communicates with the thecal sac and conta ins neural elements indication a myelomeningocele. Again, correlate with the neurological history. 4. No abnormal postcontrast enhancement is seen. Dictated: 02/22/2024 2:08 PM Transcribed: 02/22/2024 2:38 PM Alanna [id number] [id number] [id number] Electronically signed by: Aaron Pandey M.D. 02/22/2024 5:18 PM
--- NOTE | 2024-02-22 17:40 | Hospitalist Progress Note ---
Date of Service February 22, 2024 Assessment & Plan (1) Anemia: Plan: Anemia , no obvious signs of blood loss, CT abd/pelvis without significant changes, previous cholecystectomy no ductal dilatation ESR improved , no defined source for infection, atelectasis on CXR , stopping antibiotics 02/21/2020, no temporal artery pain no muscular pain CT of chest without significant changes (2) Hypothermia: Plan: -concern for acute infection is waning, no focal clinical signs , CXR and UA are negative for acute infection, respiratory biofire negative, no recent abdominal discomfort or diarrhea,she is without signs of recurrent or new skin infections, CT abd/pelvis neg, CT chest signs of infection, MRI of her lumbar spine shows no signs of definite infection she does have previous chronic malformation seen inflammatory markers are improved on repeat -S/P one dose of Cefepime -Blood cultures negative x 4, ua negative x2 stopping all antibiotics Patient has had cortisol checked in the past and has been normal on 2 occasions. In December 2022 she had a very similar presentation including infectious disease consultation at that time she had skin infections. No other source could be found. Patient left cortisol checked on 02/23/2024 will send B1 level and give a dose of thiamine 500mg iv, if feels better continue po dosing or await until levels return b12 and folate are negative (3) SOB (shortness of breath): Plan: -Resolved -HFpEF echo 12/2423 on 40 mg PO Lasix [id number] -proximal skin changes on chest x-ray make Lasix daily. Follow potassium -High sen trop is WNL, - 2gm sodium and 1800 mL fluid restriction -Continue home CPAP HS (4) Hypothyroidism: Plan: tsh elevated T4 normal no med changes (5) Ischemic stroke: Plan: -Continue aspirin and statin (6) Breast cancer: Plan: -Continue anastrazole Plan -SQ lovenox for DVT PPX Admission and Anticipated Discharge Date Admission Date: February 18, 2024 Subjective was present at bedside her case was reviewed. No defined etiologies of her hypothermia. Patient similar event in December 2022 was seen by infectious disease at that time there was concern for some skin infections these are not present currently. Patient herself has no focal complaints her seems may be the one is more concerned about what is wrong with her, in the past morning cortisols have been normal we will recheck on 02/23/2024 Physical Exam Physical Exam: Patient is awake and alert she has no focal complaints or problems she is paraplegic and has had bilateral lower extremity malformations due to her immobility Skin is documented by the wound care nurse photographs there is no definite sig ns of cellulitis of any of the infections and no others or focal joint pain Card exam is regular lungs are clear Results & Data Results & Data Vital Signs (Past 12 Hours) Vital Signs Temp Pulse Pulse Resp BP Pulse Ox O2 Del Method 02/22/24 14:40 98.2 F 90 16 109/65 93 Room Air 02/22/24 08:00 Room Air 02/22/24 07:20 98.2 F 85 16 178/77 H 93 Nasal Cannula O2 Flow Rate 02/22/24 14:40 02/22/24 08:00 02/22/24 07:20 1 Laboratory Results Reviewed CBC reviewed chemistry PG Care Time/CCT Total # of Minutes Spent Total Time Spent with Patient: Total time spent is greater than 50% in coordination of care (as documented) at patient's floor/unit and/or counseling patient: Coding Level of Care Code 33035 SUB INP/OBS CARE 3/50MIN Diagnoses Anemia D64.9 Anemia type: unspecified type Hypothermia T68.XXXA SOB (shortness of breath) R06.02 Hypothyroidism E03.9 Ischemic stroke I63.9 Breast cancer C50.919 (1) Anemia Anemia type: unspecified type Qualified Code(s): D64.9 - Anemia, unspecified
[2024-02-22] MEDS: THIAMINE HCL 500 MG in SODIUM CHLORIDE 0.9% 50 ML IV ONE (18:28)
[2024-02-22] MEDS ORDERED: MICONAZOLE NITRATE POWDER 85 GM EXT PRN (22:19)
[2024-02-23 09:52] LABS: Calcium 8.4 mg/dl (8.6-10.3); Magnesium 1.7 mg/dl (1.7-2.4); Potassium 3.7 mmol/L (3.5-5.1)
[2024-02-23 09:58] LABS: BUN Creatinine Ratio 44.2 (10-20); Creatinine Clr Calc Pharmacy 113.7 ml/min; Est GFR (African American) 117.8 ml/min; Est GFR (Non-African American) 101.6 ml/min
--- NOTE | 2024-02-23 13:30 | Hospitalist Progress Note ---
Date of Service February 23, 2024 Assessment & Plan (1) Anemia: Plan: Anemia , no obvious signs of blood loss, CT abd/pelvis without significant changes, previous cholecystectomy no ductal dilatation ESR improved , no defined source for infection, atelectasis on CXR , stopping antibiotics 02/21/2020, no temporal artery pain no muscular pain CT of chest without significant changes (2) Hypothermia: Plan: -concern for acute infection is waning, no focal clinical signs , CXR and UA are negative for acute infection, respiratory biofire negative, no recent abdominal discomfort or diarrhea,she is without signs of recurrent or new skin infections, CT abd/pelvis neg, CT chest signs of infection, MRI of her lumbar spine shows no signs of definite infection she does have previous chronic malformation seen inflammatory markers are improved on repeat -S/P one dose of Cefepime -Blood cultures negative x 4, ua negative x2 stopping all antibiotics Patient has had cortisol checked in the past and has been normal on 2 occasions. In December 2022 she had a very similar presentation including infectious disease consultation at that time she had skin infections. No other source could be found. Patient left cortisol checked on 02/23/2024 will send B1 level and give a dose of thiamine 500mg iv, if feels better continue po dosing or await until levels return b12 and folate are negative Unsure if patient has an underlying bacterial infection. will monitor for an additional 24 hours. will consult infectious disease for further assistance. (3) SOB (shortness of breath): Plan: -Resolved -HFpEF echo 12/2423 on 40 mg PO Lasix [id number] -proximal skin changes on chest x-ray make Lasix daily. Follow potassium -High sen trop is WNL, - 2gm sodium and 1800 mL fluid restriction -Continue home CPAP HS (4) Hypothyroidism: Plan: tsh elevated T4 normal no med changes (5) Ischemic stroke: Plan: -Continue aspirin and statin (6) Breast cancer: Plan: -Continue anastrazole 1.) Pressure ulcer of right buttock, stage 2, POA Pressure Ulcer L medial leg, stage 2, POA Pressure ulcer L lateral leg, unstageable, POA wound care listed sbove ulcers. Treatment: WOCN consult, Clean wounds with saline and pat dry. To Right buttock apply a dusting of stoma powder to open area and cover with barrier cream. To Left lateral lower leg apply aquacel ag and secure with optifoam. To Left medial leg: apply Aqaucel Ag to wound bed and secure with ABD. To Left lateral leg: Apply desenex and place ABD. Change daily or as needed for increased drainage. 2.) Morbid obesity with BMI 41.9 BMI: A significantly high (>40) or significantly low (<19.9) BMI will impact the severity of illness and risk of mortality of your patient.recommend lifestyle changes, will defer further managment to PCP Plan -SQ lovenox for DVT PPX Admission and Anticipated Discharge Date Admission Date: February 18, 2024 Subjective Patient reports doing well. Patient has no new symptoms. Review of Systems Review of Systems: All systems reviewed & are unremarkable except as noted in HPI & below Physical Exam Physical Exam: Patient is awake and alert she has no focal complaints or problems she is paraplegic and has had bilateral lower extremity malformations due to her immobility Skin is documented by the wound care nurse photographs there is no definite signs of cellulitis of any of the infections and no others or focal joint pain Card exam is regular lungs are clear Results & Data Results & Data Vital Signs (Past 12 Hours) Vital Signs Temp Pulse Pulse Resp BP Pulse Ox O2 Del Method 02/23/24 08:44 76 95 Room Air 02/23/24 07:45 36.7 C 75 16 106/63 93 Nasal Cannula O2 Flow Rate 02/23/24 08:44 02/23/24 07:45 2 PG Care Time/CCT Total # of Minutes Spent Total Time Spent with Patient: Total time spent is greater than 50% in coordination of care (as documented) at patient's floor/unit and/or counseling patient: Coding Level of Care Code 27983 SUB INP/OBS CARE 2/35MIN Diagnoses Anemia D64.9 Anemia type: unspecified type Hypothermia T68.XXXA SOB (shortness of breath) R06.02 Hypothyroidism E03.9 Ischemic stroke I63.9 Breast cancer C50.919 (1) Anemia Anemia type: unspecified type Qualified Code(s): D64.9 - Anemia, unspecified
--- NOTE | 2024-02-24 08:59 | Infectious Disease Consult ---
Date of Consultation February 24, 2024 Consultation Information Consultation was provided via telemedicine using two-way real-time interactive telecommunication between the patient and the telemedicine provider. For the duration of the visit, the provider was performing the assessment from a different facility than the patient. This includesuse of bluetooth stethoscope forauscultationperformed by the telepresenter that the telemedicine provider can hear if described in the physical exam. Pack Press Operator contact information: Please call [facility] . (Phone Number For Physician Use Only) After establishing a telemedicine visit, patient was: Patient was verified with two unique identifiers, Patient/authorized rep acknowledged consent and understanding and Gave permission to continue telehealth session Time Spent with Patient: Initial => 55 min History of Present Illness Attending Physician: Mario Chisholm Allergies Allergy/AdvReac Type Severity Reaction Status Date / Time nalidixic acid Allergy Unknown Unknown Verified 12/15/23 13:30 Home Medications Medication Instructions Recorded Confirmed Type Oxygen Home E0424 #1 ea 05/21/21 01/13/24 Rx amlodipine 5 mg tablet (Norvasc) 5 mg PO QAM #30 tabs 05/21/21 02/18/24 Rx pantoprazole 40 mg tablet,delayed 40 mg PO DAILY 10/20/21 02/18/24 History release anastrozole 1 mg tablet 1 mg PO DAILY 10/23/22 02/18/24 History levothyroxine 50 mcg tablet 50 mcg PO DAILY 10/23/22 02/18/24 History cholecalciferol (vitamin D3) 25 1,000 unit PO QAM #30 caps 01/01/23 02/18/24 Rx mcg (1,000 unit) capsule atorvastatin 40 mg tablet 40 mg PO UD 01/13/24 02/18/24 History sertraline 50 mg tablet 50 mg PO DAILY 01/13/24 02/18/24 History aspirin 81 mg tablet,delayed 81 mg PO QAM #0 tabs 01/20/24 02/18/24 Rx release furosemide 40 mg tablet (Lasix) 40 mg PO Q OTHER DAY #30 tabs 01/20/24 02/18/24 Rx potassium chloride 10 mEq 10 meq PO .qod #30 tabs 01/20/24 02/18/24 Rx tablet,extended release Patient History Medical History Breast cancer Elevated LFTs Lymphedema Hypothyroidism Cellulitis Osteomyelitis Constipation Stage IV pressure ulcer Ulcers of both lower extremities Elevated LFTs Heart failure CAD (coronary artery disease) History of CVA (cerebrovascular accident) Traumatic open wound of left lower leg Transaminitis Stage III pressure ulcer Severe obstructive sleep apnea Apnea Chronic cough Hypokalemia Nausea & vomiting Dehydration Pressure ulcer of left calf Stroke Meningitis spinal 2019 Lymphedema of both lower extremities HTN (hypertension) Hiatal hernia Hypertension Spina bifida (06/21/13) Paraplegia (06/21/13) Neurogenic bladder (06/21/13) Surgical History (Updated 02/20/24 @ 00:08 by Behzad Lombardo) H/O bone graft H/O section Hx of cholecystectomy Family History Father Hypertension Myocardial infarction Herniated disc Mother Myocardial infarction Colorectal cancer Uterine cancer Other Family history non-contributory Social History Smoking Status: Never smoker Second Hand Exposure: No; Do You Dip or Chew Tobacco: No; Hx Alcohol Use: No Hx Substance Use: No Preferred Language: Upper Sorbian Communication Ability: Effective Visual Impairment: Limited Hearing Ability: Normal Wheat Cleaner Required: No Beliefs That Will Affect Care: None marital status: Current Living Situation: Spouse current occupational status: retired How many Children do You have: 2 Other Information That Helps Us Care for You: No Feels Safe at Home: Yes Safety Concerns: Feels Safe At This Time Diet: regular caffeine: Yes (tea) during the past year weight has: increased > 10 lbs Physical Activity Frequency: Does not Exercise Do you think of yourself as: straight/heterosexual Gender Identity: Female Assistive Devices: Mechanical Lift and Wheelchair Results & Data Vital Signs (Past 12 Hours) Vital Signs Temp Pulse Resp BP Pulse Ox O2 Del Method 02/24/24 08:00 36.6 C 74 14 117/72 95 Room Air Laboratory Results Laboratory Results - last 48 hr 02/22/24 02/23/24 02/23/24 09:12 08:29 11:36 WBC 5.49 RBC 2.71 L Hgb 8.2 L Hct 26.1 L MCV 96.3 MCH 30.3 MCHC 31.4 L RDW Std Deviation 61.8 H RDW Coeff of Deanna 17.8 H Plt Count 133 MPV 11.2 ESR 58 H Sodium 140 140 Potassium 3.9 3.7 Chloride 107 106 Carbon Dioxide 27 28 Anion Gap 6 6 BUN 19 19 Creatinine 0.37 L 0.43 L Est Cr Clr Drug Dosing 132.1 113.7 Est GFR ( Amer) 123.7 117.8 Est GFR (Non-Af Amer) 106.8 101.6 BUN/Creatinine Ratio 51.4 H 44.2 H Glucose 87 94 Calcium 8.5 L 8.4 L Magnesium 1.7 Total Bilirubin 0.4 AST 15 ALT 19 Alkaline Phosphatase 82 C-Reactive Protein 0.65 H Total Protein 6.0 Albumin 3.0 L Globulin 3.0 Albumin/Globulin Ratio 1.0 Lipase 33 Procalcitonin 0.04 Cortisol AM Sample 16.72 Medications Administered Current Inpatient Medications Anastrozole (Anastrozole 1 Mg Tab) 1 mg PO DAILY [facility] Stop: 03/20/24 08:59 Last Admin: 02/24/24 07:49 Dose: 1 mg Aspirin (A[facility]in 81 Mg Ectab) [facility]: 03/20/24 08:59 Last Admin: 02/24/24 07:48 Dose: 81 mg Atorvastatin Calcium (Atorvastatin 40 Mg Tab) 40 mg PO DAILY [facility] Stop: 03/20/24 08:59 Last Admin: 02/24/24 07:48 Dose: 40 mg Furosemide (Furosemide 40 Mg Tab) 40 mg PO QAM [facility] Stop: 03/23/24 08:59 Last Admin: 02/24/24 07:49 Dose: 40 mg Promethazine HCl 6.25 mg/ (Sodium Chloride) 50.25 mls @ 201 mls/hr IV PRN PRN PRN Reason: nausea Stop: 03/22/24 19:44 Last Infusion: 02/22/24 05:40 Dose: Infused Famotidine (Pepcid 20mg Iv Push) 20 mg in 5 mls @ 2.5 mls/min IV Q12H [facility] Stop: 03/23/24 08:59 Last Admin: 02/24/24 07:56 Dose: 2.5 mls/min Levothyroxine Sodium (Levothyroxine Sodium 50 Mcg Tablet) 50 mcg PO DAILYBB [facility] Stop: 03/20/24 06:29 Last Admin: 04/05/24 05:52 Dose: 50 mcg Miconazole Nitrate (Miconazole Nitrate Powder 85 Gm) 1 appln EXT UD PRN PRN Reason: NURSING DECISION Stop: 03/23/24 22:18 Ondansetron HCl (Ondansetron Inj 2 Mg/Ml 2 Ml Vial) 4 mg IV Q4H PRN PRN Reason: Nausea Stop: 03/19/24 22:54 Last Admin: 02/22/24 01:19 Dose: 4 mg Pantoprazole Sodium (Pantoprazole 40 Mg Tab) 40 mg PO DAILY [facility] Stop: 03/20/24 08:59 Last Admin: 02/24/24 07:48 Dose: 40 mg Potassium Chloride (Potassium Chloride 10 Meq Tabcr) 10 meq PO Q48H [facility] Stop: 03/20/24 08:59 Last Admin: 02/23/24 07:36 Dose: 10 meq Sertraline HCl (Sertraline Hcl 50 Mg Tablet) 50 mg PO DAILY [facility] Stop: 03/20/24 08:59 Last Admin: 02/24/24 07:50 Dose: 50 mg
[2024-02-24 12:24] LABS: Basophils # (auto) 0.02 K/uL (0.00-0.20); Basophils % (auto) 0.3 %; Eosinophils # (auto) 0.27 K/uL (0.00-0.50); Eosinophils % (auto) 4.7 %; Hematocrit (blood only) 25.3 % (37.0-47.0); Hemoglobin 8.2 g/dl (12.0-16.0); Immature Granulocytes # (auto) 0.02 K/uL (0.01-0.20); Immature Granulocytes % (auto) 0.3 %; Lymphocytes # (auto) 1.51 K/uL (1.20-3.40); Lymphocytes % (auto) 26.1 %; Mean Corpuscular Hemoglobin 30.8 pg (25.0-34.0); Mean Corpuscular Hgb Conc 32.4 g/dL (32.0-36.0); Mean Corpuscular Volume 95.1 fL (80.0-100.0); Mean Platelet Volume 11.1 fL (9.4-12.4); Monocytes # (auto) 0.61 K/uL (0.11-0.59); Monocytes % (auto) 10.6 %; Neutrophils # (auto) 3.35 K/uL (1.40-6.50); Platelet Count 177 K/uL (130-400); RDW Standard Deviation 61.7 fL (36.4-46.3); Red Blood Count 2.66 M/uL (4.20-5.40); White Blood Count 5.78 K/ul (4.8-10.8)
[2024-02-24 12:41] LABS: Albumin Globulin Ratio 1.1 (0.9-2); Albumin Level 3.2 gm/dl (3.4-5.0); Bilirubin,Total 0.3 mg/dl (0.2-1.0); C Reactive Protein 0.88 mg/dl (0-0.5); Calcium 8.6 mg/dl (8.6-10.3); Creatinine Clr Calc Pharmacy 99.8 ml/min; Est GFR (African American) 112.8 ml/min; Est GFR (Non-African American) 97.3 ml/min; Globulin 2.8 gm/dl (2.5-4.0); Magnesium 1.6 mg/dl (1.7-2.4); Potassium 3.8 mmol/L (3.5-5.1)
--- NOTE | 2024-02-24 14:25 | Discharge Summary ---
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 She was noted to be hypothermic at 33.9C on arrival but otherwise stable. Labs including CBC, CMP, high sen trop, BNP, procal, UA, and full respiratory biofire were unremarkable. Chest xray was read as 1. Cardiomegaly and mild congestive change persists. 2. Bibasilar linear densities favor subsegmental atelectasis. This has improved in the interval.. Prior to admission the patient was given a dose of cefepime and 500 mL NSS. We were asked to admit the patient due to a long hx of hypothermia with acute infections and the patient being high risk for infection. At the time of the exam the patient was lying in bed in no acute distress with her sitting bedside, history was obtained from both. The patient had been doing well since discharge at the beginning of the month for aspiration pneumonia. Her explains that the patient started to experience intermittent episodes of confusion on 10/17, similar to her normal presentation when she has an infection. He kept asking her if she was cold but she denies any chills. Last night they state that the patient felt very cold and was feeling slightly SOB. Due to her previous admissions for hypothermia with infections he brought her to the ED today. Her confirms that the patient is currently at her neurologic baseline. The patient denies any symptoms other than feeling cold at the time of exam. Denies recent fever, cough, chest pain, abd pain, nausea, vomiting, diarrhea, dysuria, hematuria, and new wounds. When asked, her states that the patient was recently discharged from the wound care clinic as her Bl posterior knee wounds have healed. He denies new wounds on the legs, buttocks, or back. She did not have her am meds prior to arrival today. We discussed code status, the patient is a full code and her would make medical decisions for her if she cannot make them herself. Please refer to Dr. 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 Skin is documented by the wound care nurse photographs there is no definite signs of cellulitis of any of the infections and no others or focal joint pain Card exam is regular lungs are clear Discharge Data Allergies Allergy/AdvReac Type Severity Reaction Status Date / Time nalidixic acid Allergy Unknown Unknown Verified 12/15/23 13:30 Consultations 02/18/24 09:55 ED Decision to Admit Stat 02/23/24 13:25 Consult Infectious Diseases Routine Ordered Studies 02/20/24 07:32 CT Abd and Pelvis [CT abd pelvis oral and IV con] Routine 02/20/24 15:12 CT chest diagnostic wo con Routine 02/22/24 10:51 MRI Lumbar Spine [MR lumbar spine wo/w con] Routine Hospital Course (1) Anemia: Anemia , no obvious signs of blood loss, CT abd/pelvis without significant changes, previous cholecystectomy no ductal dilatation ESR improved , no defined source for infection, atelectasis on CXR , stopping antibiotics 02/21/2020, no temporal artery pain no muscular pain CT of chest without significant changes (2) Hypothermia: -concern for acute infection is waning, no focal clinical signs , CXR and UA are negative for acute infection, respiratory biofire negative, no recent abdominal discomfort or diarrhea,she is without signs of recurrent or new skin infections, CT abd/pelvis neg, CT chest signs of infection, MRI of her lumbar spine shows no signs of definite infection she does have previous chronic malformation seen inflammatory markers are improved on repeat -S/P one dose of Cefepime -Blood cultures negative x 4, ua negative x2 stopping all antibiotics Patient has had cortisol checked in the past and has been normal on 2 occasions. In December 2022 she had a very similar presentation including infectious disease consultation at that time she had skin infections. No other source could be found. Patient left cortisol checked on 02/23/2024 b12 and folate are negative B1 LEVEL REMAINS PENDING. PATIENT HAS BEEN OFF ANTIBIOTICS FOR OVER 72 HOURS. DISCUSSED WITH INFECTIOUS DISEASE. Given clinical improvement. will discharge patient home (3) SOB (shortness of breath): -Resolved -HFpEF echo 12/2423 on 40 mg PO Lasix [id number] -proximal skin changes on chest x-ray make Lasix daily. Follow potassium -High sen trop is WNL, - 2gm sodium and 1800 mL fluid restriction -Continue home CPAP HS (4) Hypothyroidism: tsh elevated T4 normal no med changes (5) Ischemic stroke: -Continue aspirin and statin (6) Breast cancer: -Continue anastrazole 1.) Pressure ulcer of right buttock, stage 2, POA Pressure Ulcer L medial leg, stage 2, POA Pressure ulcer L lateral leg, unstageable, POA wound care listed sbove ulcers. Treatment: WOCN consult, Clean wounds with saline and pat dry. To Right buttock apply a dusting of stoma powder to open area and cover with barrier cream. To Left lateral lower leg apply aquacel ag and secure with optifoam. To Left medial leg: apply Aqaucel Ag to wound bed and secure with ABD. To Left lateral leg: Apply desenex and place ABD. Change daily or as needed for increased drainage. 2.) Morbid obesity with BMI 41.9 BMI: A significantly high (>40) or significantly low (<19.9) BMI will impact the severity of illness and risk of mortality of your patient.recommend lifestyle changes, will defer further managment to PCP Plan -SQ lovenox for DVT PPX Total Time Total Time Spent Total Time Spent (In Minutes): 32 Discharge Plan Discharge Items Patient Disposition: Home - Self-Care Reason For Visit: HYPOTHERMIA, SOB Discharge Diagnosis: hyperthermia Condition on Discharge: Fair Activity: Resume your previous activity Non-emergency contact: Primary Care Provider Call non-emergency contact if: you have any medication questions Follow-up/Referrals: Fartun Frank PA-C [Primary Care Provider] - 02/27/24 9:05 am ([facility] [address]) Diet: Heart Healthy and Low Sodium (2gm) Fluids: 1800ml (7 cups) Diet Texture: Easy to Chew Addtl Attending Provider Instructions: recommend followup with your PCP in 1-2 weeks Pending Studies at Discharge: No Stand-Alone Forms: [email or web address], Smoking Cessation Medications and DC Order Prescriptions: Continued pantoprazole 40 mg tablet,delayed release (DR/EC) 40 mg PO DAILY cholecalciferol (vitamin D3) 25 mcg (1,000 unit) Capsule 1,000 unit PO QAM Qty: 30 0RF (DME) Oxygen Home [id number] Liters Per Minute See Rx Instructions .ROUTE .MEDSUPPLY Qty: 1 0RF Rx Instructions: As directed - 2 L NC O2 at bedtime & with naps anastrozole 1 mg tablet 1 mg PO DAILY levothyroxine 50 mcg tablet 50 mcg PO DAILY sertraline 50 mg tablet 50 mg PO DAILY atorvastatin 40 mg tablet 40 mg PO UD aspirin 81 mg Tablet,Delayed Release (Dr/Ec) 81 mg PO QAM Qty: 0 0RF furosemide [Lasix] 40 mg tablet 40 mg PO Q OTHER DAY Qty: 30 0RF potassium chloride 10 mEq tablet extended release 10 meq PO .qod Qty: 30 0RF Changed amlodipine [Norvasc] 5 mg Tablet 2.5 mg PO QAM Qty: 30 2RF Discharge Orders: Discharge Order (Routine); Ordered 02/24/24 Ordered By: Mario Chisholm Admission Data Admit Date/Time: 02/18/24 10:33 Attending Provider: Mario Chisholm Admit Provider: Gary Olmos Primary Care Provider: Fartun Frank Other Providers: Gary Olmos; Nicky Wilcox; Barbara Soto; Alejandra Crowley; Dianne Carrillo; Patricia Caldera; Steve Lazaro; Teressa Quintana; Meme Tolliver Other Interventions: Discharge Summary Assessment (RN) Last Done: 02/24/24 15:05 Coding Level of Care Code 40296 INP/OBS DISCH >30 MIN Diagnoses Anemia D64.9 Anemia type: unspecified type Hypothermia T68.XXXA SOB (shortness of breath) R06.02 Hypothyroidism E03.9 Ischemic stroke I63.9 Breast cancer C50.919
== END 2024-02-24 18:17 | disposition home or self-care (01) | DRG 812 ==
LOC: ED 07:49 → 3N 10:33 → SUATTDRO 10:33 → 3N 11:29

== ENCOUNTER 2025-01-19 09:54 | Inpatient (IN) ==
--- NOTE | 2025-01-19 10:09 | Emergency Department Note ---
Impression & Plan Acute hypoxemic respiratory failure, Cancer, metastatic to lung, Cough, Acute dyspnea, History of spina bifida ED Provider Note NAME: JR DIAZ AGE: 74 SEX: F : 1950 ARRIVES VIA: Walk-In INFORMANT: Patient, family member ED PROVIDER(S): Peyman Justice MD CHIEF COMPLAINT: Cough, shortness of breath MEDICAL DECISION MAKING: Patient presents with the above. IV was established and blood work was obtained. Sepsis protocols initiated. Patient does have some erythema noted adjacent to chronic wound care area to the right lower extremity. No significant warmth though. Patient was ordered empiric Rocephin. Patient's blood work shows a white count of 28. Hemoglobin of 8.5. This is around the patient's baseline. Platelet count of 431. D function unremarkable. Lactate of 2.3. Troponin of 14. Patient's BioFire negative. Patient's chest x-ray does show concern for metastatic disease. Patient may have associated pulmonary edema pleural effusion. Aggressive fluids deferred at this time given these findings. I did speak with the on-call hospitalist service after informed the patient the findings. Patient will be admitted to the medicine service by Dr. Olmos. I did speak with Dr. Olmos after discussing the patient's initial treatment. The patient was noted to be tachycardic. The patient did state that she felt chilled. Possible rigors. Patient does feel comfortable on her nasal cannula supplemental oxygen. After discussion with Dr. Olmos patient was ordered 500 cc bolus. Patient's antibiotics were broadened out as well. Critical Care: I have personally spent 35 minutes of critical care time in direct management of this patient. This includes bedside care, interpretation of diagnostic studies, and testing, discussion with consultants, patient, and family members, and other require inpatient management activities. This 35 minutes is in excess of all separately billable procedures. Discussion w/ other healthcare providers: Dr. Olmos inpatient medicine service Prior /Outside records reviewed: I reviewed part of a operative report from December 20. Patient had excisional debridement of sacral decubitus ulcer at that time. I also did review part of a wound visit note from Dr. Gomez from January 03. Patient does have known history of venous stasis ulcers bilateral lower extremities as well as unstageable pressure ulcer to sacrum. No reports improvement also discussed possibility of fci care at [place] [facility]. Patient also recently evaluated for a urothelial carcinoma of the bladder I did review part of a urology visit from Dr. Catalan from January 02. Patient with a referral for possible cystectomy. Reviewed part of a discharge summary from Dr. Chisholm from February 2024. Known history of spina bifida resulting paraplegia and neurogenic bladder and neurogenic bowel ischemic stroke heart failure with preserved ejection fraction chronic wounds lymphedema Differential diagnosis: Reactive airway disease, pneumonia, pneumothorax, COPD, CHF, ACS, pulmonary embolism, musculoskeletal, GERD as well as other pathologies were considered. Diagnostics, as interpreted by me: ECG: Normal sinus rhythm, rate 96, normal intervals, normal axis no ST elevations. Cardiac monitoring: An order was placed for continuous cardiac monitoring. The monitor shows a rate of 92 with sinus rhythm. Patient was placed on pulse oximetry Medical decision rules: None Imaging studies: I informally interpreted the patient's chest x-ray does show concern for metastatic disease with formal report to follow. HPI: Patient presents with at bedside due to concern for cough. Patient said cough about 10 to 14 days. Nonproductive. Patient did develop symptoms shortly after being visited by some grandchildren who may have been sick at the time. Patient's also has cough. No reported falls or trauma. The patient does have some shortness of breath. Patient still tolerating liquids but not having much of an appetite may be not eating or drinking quite as much. No abdominal pain. Did have some nausea last evening. No vomiting. Bout of diarrhea this morning. Patient denies any chest pains. Patient states that she is paralyzed from the waist down and does not have any feeling. The patient does wear an adult diaper at all times. The patient does not know when she has to use the bathroom but this is a chronic issue. Patient reportedly has had cancellations of wound care visits in December totaling 3 separate times most recently yesterday. is concerned as they have not been able to see wound care. PAST MEDICAL HISTORY: See Below PAST SURGICAL HISTORY: See Below SOCIAL HISTORY: See Below HOME MEDICATIONS: See Below ALLERGIES: See Below VITALS: See Below PHYSICAL EXAMINATION: GENERAL: NAD, non-toxic. EYE EXAM: Normal conjunctiva. PERRL, no anisocoria and EOM's grossly intact w/o pain. OROPHARYNX: Moist mucus membranes, grossly normal dentition. NECK: Trachea midline, no stridor. Supple, no nuchal rigidity, no adenopathy, non-tender. No signs of meningismus. FROM of the neck with good chin to chest and neck extension. LUNGS: Diminished breath sounds at the bases. Normal chest wall mechanics. HEART: NSR, no MRG. ABDOMEN: Abdomen soft, non-tender, no masses, no rebound or guarding. BACK: No CVA TTP. SKIN: No rashes and no bruising. UPPER EXTREMITIES: Upper extremities are grossly normal. LOWER EXTREMITIES: Large nonpitting swelling of the bilateral lower extremities. Chronic skin changes with plaque-like scaliness to the bilateral lower extremities. Mild erythema with chronic wound noted over the medial aspect of the distal right lower extremity. Single toe/toenail located at the base of the right lower extremity. NEURO EXAM: A&O x3, cranial nerves II-XII grossly intact, normal speech, moves all 4 extremities. Past Med/Surg History Problem List History of spina bifida (Acute) Acute dyspnea (Acute) Cough (Acute) Cancer, metastatic to lung (Acute) Acute hypoxemic respiratory failure (Acute) Urothelial carcinoma of bladder (Acute) Bladder mass Venous stasis ulcers of both lower extremities (Acute) Hx of aspiration pneumonitis (Acute) Anemia (Acute) Metabolic encephalopathy Allergy to fluoroquinolone Breast cancer Weakness (Acute) Hypotension Heart failure Chronic acquired lymphedema (Chronic) Subclinical hypothyroidism Hydronephrosis Nocturnal hypoxemia DVT (deep venous thrombosis) Hiatal hernia H/O section Hx of cholecystectomy Medical History Renal artery stenosis Mild/bilateral per cardio Unstageable pressure ulcer to the sacrum/lower back region - reason for upcoming debridement Multiple wounds Currently following [facility] - BLE Venous stasis ulcers to bilateral LEs- Poor historian Hypothermia 12/2023 - 01/2024 [facility] "Sometimes I get cold and get brought to the ER for a warming blanket to get me warmed up" as per patient Hiatal hernia Hx of deep venous thrombosis Pt unsure - EMR 09/2018 Hx of Clostridium difficile infection Pt unsure - EMR 09/2018 - pt denies any issues at this time Hx of breast cancer "Its been a couple years" no chemo/xrt/surgery - CCP Bladder mass Reason for procedure Hx of respiratory failure 12/2023 - [facility] IP History of non-ST elevation myocardial infarction (NSTEMI) pt denies - EMR 2015 - Dr Stover CHF (congestive heart failure) Pt Denies - Dr Stover EF 65-70% on 12/2023 ECHO Per cardio records - hx of Takotsubo CM- moderate to severe LV dysfunction 07/2016 that resolved in four days Anemia Hypothyroidism Cellulitis hx - Currently following [facility] for multiple wounds Osteomyelitis no osteomyelitis per 11/08/[address] Constipation Intermittent CAD (coronary artery disease) No Stents - Dr Stover No evidence of epicardial CAD per cardio records History of CVA (cerebrovascular accident) - 04/2021; Residual - Right Arm - No Neurologist Severe obstructive sleep apnea CPAP Chronic cough Intermittent- no current issues Meningitis spinal 1986 Lymphedema of both lower extremities Hypertension Spina bifida (06/21/13) Motorized Wheelchair/Get Lift Paraplegia Motorized Wheelchair/Get Lift Neurogenic bladder (06/21/13) Surgical History S/P debridement (12/20/24) Excisional Debridement Sacral Decubitus Ulcer [id number] down to subcutaneous tissue (Not Applicable) - Bharathi Moon, Hx of colonoscopy Hx laparoscopic cholecystectomy Hx of esophagogastroduodenoscopy Hx of section x1 H/O bone graft Left Knee, Right Ankle, Right Upper Thigh - [place] Family History Father Hypertension Myocardial infarction Herniated disc Mother Myocardial infarction Colorectal cancer Uterine cancer Other Family history non-contributory Social History Smoking Status: Never smoker Second Hand Exposure: No; Do You Dip or Chew Tobacco: No; Hx Alcohol Use: No Hx Substance Use: No Preferred Language: Jamaican Communication Ability: Effective Visual Impairment: Limited Hearing Ability: Normal Manager Garage Required: No Beliefs That Will Affect Care: None marital status: Current Living Situation: Spouse current occupational status: retired How many Children do You have: 2 Feels Safe at Home: Yes Diet: regular caffeine: Yes (tea) during the past year weight has: increased > 10 lbs Physical Activity Frequency: Does not Exercise Do you think of yourself as: straight/heterosexual Gender Identity: Female Assistive Devices: CPAP, Glasses, Oxygen - at Night and Other Allergies Allergies Allergy/AdvReac Type Severity Reaction Status Date / Time nalidixic acid Allergy Intermediate Rash Verified 01/03/25 13:03 Home Meds Home Medications Medication Instructions Recorded Confirmed pantoprazole 40 mg tablet,delayed 40 mg PO DAILY 10/20/21 01/19/25 release anastrozole 1 mg tablet (Arimidex) 1 mg PO QAM 10/23/22 01/19/25 levothyroxine 50 mcg tablet 50 mcg PO UD 10/23/22 01/19/25 atorvastatin 40 mg tablet 40 mg PO QAM 01/13/24 01/19/25 sertraline 50 mg tablet (Zoloft) 50 mg PO QAM PRN Other 01/13/24 01/19/25 albuterol 90 mcg/actuation aerosol 90 mcg inhalation DAILY PRN 12/06/24 01/19/25 inhaler Shortness Of Breath ammonium lactate 12 % topical cream 1 applic topical DAILY Skin 12/06/24 01/19/25 Removal potassium chloride 10 mEq 10 meq PO QAM 12/06/24 01/19/25 tablet,extended release furosemide 40 mg tablet (Lasix) 40 mg PO UD 01/19/25 01/19/25 Previous Rx's Medication Instructions Recorded Oxygen Home #1 ea 05/21/21 aspirin 81 mg tablet,delayed 81 mg PO QAM #0 tabs 01/20/24 release amlodipine 5 mg tablet (Norvasc) 2.5 mg (1/2 x 5 mg) PO QAM #30 tabs 02/24/24 collagenase clostridium histo. 250 1 applic topical DAILY #30 grams 01/03/25 unit/gram topical ointment (Santyl) Results & Data (ED) Vital Signs Vital Signs - 24 hr 01/19/25 09:58 01/19/25 10:56 01/19/25 11:00 Temperature 36.6 C Temperature Source Oral Pulse Rate 104 H 88 Pulse Rate from SpO2 Sensor 88 Respiratory Rate 18 22 Blood Pressure 107/62 106/73 Blood Pressure Mean 77 84 Pulse Oximetry 93 91 Oxygen Delivery Method Room Air Room Air Room Air Oxygen Flow Rate Sepsis New/Unexplained Change in Mental Status No Sepsis Action Taken by Nursing No Action Required 01/19/25 12:00 01/19/25 12:15 01/19/25 12:32 Temperature Temperature Source Pulse Rate 97 H 95 H Pulse Rate from SpO2 Sensor 97 H Respiratory Rate 18 Blood Pressure 111/55 L 96/59 L Blood Pressure Mean 73 61 Pulse Oximetry 90 Oxygen Delivery Method Nasal Cannula Oxygen Flow Rate 1 Sepsis New/Unexplained Change in Mental Status Sepsis Action Taken by Nursing Laboratory Data 01/19/25 10:50 01/19/25 10:50 Lab Results 01/19/25 01/19/25 01/19/25 Range/Units 10:49 10:50 11:36 WBC 28.56 H (4.8-10.8) K/ul RBC 3.32 L (4.20-5.40) M/uL Hgb 8.5 L (12.0-16.0) g/dl Hct 27.6 L (37.0-47.0) % MCV 83.1 (80.0-100.0) fL MCH 25.6 (25.0-34.0) pg MCHC 30.8 L (32.0-36.0) g/dL RDW Std Deviation 55.7 H (36.4-46.3) fL RDW Coeff of Deanna 19.6 H (11.5-14.5) % Plt Count 431 H (130-400) K/uL MPV 10.6 (9.4-12.4) fL Neutrophils % (Manual) 73 % Lymphocytes % (Manual) 5 % Monocytes % (Manual) 3 % Eosinophils % (Manual) 19 % Neutrophils # (Manual) 20.85 H (1.40-6.50) K/uL Total Absolute Neuts 20.85 H (1.4-6.5) K/uL Lymphocytes # (Manual) 1.43 (1.2-3.4) K/uL Total Abs Lymphocytes 1.43 (1.2-3.4) K/uL Monocytes # (Manual) 0.86 H (0.11-0.59) K/uL Eosinophils # (Manual) 5.43 H (0-0.50) K/uL Sodium 138 (136-145) mmol/L Potassium 3.8 (3.5-5.1) mmol/L Chloride 104 (98-107) mmol/L Carbon Dioxide 28 (21-32) mmol/L Anion Gap 6 (3-11) BUN 20 (6-23) mg/dl Creatinine 0.54 L (0.6-1.2) mg/dl Est Cr Clr Drug Dosing Not Reportable eGFR 97.15 BUN/Creatinine Ratio 37.0 H (10-20) Glucose 142 H (70-99(Fasting)) mg/dl Lactate 2.3 H* (0.4-2.0) mmol/L Calcium 9.9 (8.6-10.3) mg/dl Magnesium 2.1 (1.7-2.4) mg/dl Total Bilirubin 0.5 (0.2-1.0) mg/dl Direct Bilirubin 0.2 (0-0.2) mg/dl AST 16 (13-39) U/L ALT 17 (7-52) U/L Alkaline Phosphatase 106 H (34-104) U/L Troponin I High Sens 14.3 H (0-14) pg/ml Total Protein 6.4 (6.0-8.3) gm/dl Albumin 2.7 L (3.4-5.0) gm/dl Procalcitonin 0.39 (0-0.5) ng/ml Adenovirus (PCR) Not Detected (NotDetected) B. pertussis DNA (PCR) Not Detected (NotDetected) B.parapertussis DNA PCR Not Detected (NotDetected) C. pneumoniae DNA (PCR) Not Detected (NotDetected) Coronavirus OC43 (PCR) Not Detected (NotDetected) Coronavirus HKU1 (PCR) Not Detected (NotDetected) Coronavirus 229E (PCR) Not Detected (NotDetected) SARS-CoV-2 (PCR) Not Detected (NotDetected) Coronavirus NL63 (PCR) Not Detected (NotDetected) Human Metapneumovir PCR Not Detected (NotDetected) Influenza Type A (PCR) Not Detected (NotDetected) Influenza Type B (PCR) Not Detected (NotDetected) M. pneumoniae (PCR) Not Detected (NotDetected) Parainfluenza 1 (PCR) Not Detected (NotDetected) Parainfluenza 2 (PCR) Not Detected (NotDetected) Parainfluenza 3 (PCR) Not Detected (NotDetected) Parainfluenza 4 (PCR) Not Detected (NotDetected) RSV (PCR) Not Detected (NotDetected) Entero/Rhino (PCR) Not Detected (NotDetected) Administered Medications Discontinued Medications Ceftriaxone Sodium (Rocephin) 2,000 mg in 50 mls @ 100 mls/hr IV NOW STA Stop: 01/19/25 11:06 Last Infusion: 01/19/25 12:36 Dose: Infused Documented By: Admin: 01/19/25 11:42 Dose: 100 mls/hr Documented By: Imaging Data Radiologist's Impression: Chest X-Ray 01/19/25 10:22 XR chest 1V portable CLINICAL HISTORY: Sepsis. COMPARISON STUDY: Chest CT February 20, 2024. Chest radiograph February 18, 2024. FINDINGS: There is no pneumothorax. A small right pleural effusion is present. Numerous round mass-like opacities have developed since prior examination. There is interstitial thickening. Cardiomegaly is unchanged. Elevation of the left hemidiaphragm is unchanged. Opacity within the lateral right mid and lower lung is present. IMPRESSION: 1. Interval development of numerous round mass-like opacities within the lungs highly suggestive of metastatic disease. 2. Small right pleural effusion. Right mid and lower lung airspace opacity which could represent a loculated effusion, pleural lesions or pneumonia. 3. Cardiomegaly with mild pulmonary edema. ACT 112: Negative or not required by law. Electronically signed by: Kwabena Montalvo M.D. 01/19/2025 11:02 AM Discharge Plan Visit Data Chief Complaint: Cough Stated Complaint: COUGH/PERSISTANT, SOB ED Provider: Peyman Justice Discharge Problem: Acute hypoxemic respiratory failure, Cancer, metastatic to lung, Cough, Acute dyspnea, History of spina bifida Forms Stand Alone Forms: My [employer] Prescriptions Prescriptions: No Action Santyl 250 unit/gram ointment 1 applic topical DAILY Qty: 30 1RF pantoprazole 40 mg tablet,delayed release (DR/EC) 40 mg PO DAILY Patient Comments: "I am unsure if I am taking that one right now" (DME) Oxygen Home Liters Per Minute See Rx Instructions .ROUTE .MEDSUPPLY Qty: 1 0RF Rx Instructions: As directed - 2 L NC O2 at bedtime & with naps anastrozole [Arimidex] 1 mg tablet 1 mg PO QAM levothyroxine 50 mcg tablet 50 mcg PO UD Rx Instructions: 50 mcg po qam. per pt she's not sure if her dose has changed, most recent fill is for 75mcg (12/26 30 day supply) furosemide [Lasix] 40 mg tablet 40 mg PO UD Rx Instructions: 40 mg po q other day. Per pt she's not sure on the medication. Last dose filled was 20 mg for 5 day supply sertraline [Zoloft] 50 mg tablet 50 mg PO QAM PRN (Reason: Other) atorvastatin 40 mg tablet 40 mg PO QAM aspirin 81 mg Tablet,Delayed Release (Dr/Ec) 81 mg PO QAM Qty: 0 0RF amlodipine [Norvasc] 5 mg Tablet 2.5 mg PO QAM Qty: 30 2RF albuterol 90 mcg/actuation Aerosol 90 mcg INHALATION DAILY PRN (Reason: Shortness Of Breath) potassium chloride 10 mEq tablet extended release 10 meq PO QAM ammonium lactate 12 % cream 1 applic topical DAILY Rx Instructions: Apply to lower legs and feet daily. Referrals Referrals: Fartun Frank PA-C [Primary Care Provider] - Discharge Problem: Cancer, metastatic to lung Qualifiers: Laterality: bilateral Qualified Code(s): C78.01 - Secondary malignant neoplasm of right lung; C78.02 - Secondary malignant neoplasm of left lung Cough Qualifiers: Cough type: acute Qualified Code(s): R05.1 - Acute cough
--- NOTE | 2025-01-19 11:04 | XRay Report ---
XR chest 1V portable CLINICAL HISTORY: Sepsis. COMPARISON STUDY: Chest CT February 20, 2024. Chest radiograph February 18, 2024. FINDINGS: There is no pneumothorax. A small right pleural effusion is present. Numerous round mass-li ke opacities have developed since prior examination. There is interstitial thickening. Cardiomegaly i s unchanged. Elevation of the left hemidiaphragm is unchanged. Opacity within the lateral right mid a nd lower lung is present. IMPRESSION: 1. Interval development of numerous round mass-like opacities within the lungs highly suggestive of m etastatic disease. 2. Small right pleural effusion. Right mid and lower lung airspace opacity which could represent a lo culated effusion, pleural lesions or pneumonia. 3. Cardiomegaly with mild pulmonary edema. ACT 112: Negative or not required by law. Electronically signed by: Kwabena Montalvo M.D. 01/19/2025 11:02 AM
[2025-01-19 11:23] LABS: Hematocrit (blood only) 27.6 % (37.0-47.0); Hemoglobin 8.5 g/dl (12.0-16.0); Mean Corpuscular Hemoglobin 25.6 pg (25.0-34.0); Mean Corpuscular Hgb Conc 30.8 g/dL (32.0-36.0); Mean Corpuscular Volume 83.1 fL (80.0-100.0); Mean Platelet Volume 10.6 fL (9.4-12.4); Platelet Count 431 K/uL (130-400); RDW Coefficient of Variation 19.6 % (11.5-14.5); RDW Standard Deviation 55.7 fL (36.4-46.3); Red Blood Count 3.32 M/uL (4.20-5.40); White Blood Count 28.56 K/ul (4.8-10.8)
[2025-01-19 11:36] LABS: Alanine Aminotransferase 17 U/L (7-52); Albumin Level 2.7 gm/dl (3.4-5.0); Alkaline Phosphatase 106 U/L (34-104); Anion Gap 6 (3-11); Aspartate Aminotransferase 16 U/L (13-39); Bilirubin Direct 0.2 mg/dl (0-0.2); Bilirubin,Total 0.5 mg/dl (0.2-1.0); Blood Urea Nitrogen 20 mg/dl (6-23); Calcium 9.9 mg/dl (8.6-10.3); Carbon Dioxide 28 mmol/L (21-32); Chloride 104 mmol/L (98-107); Glucose 142 mg/dl (70-99(Fasting)); Magnesium 2.1 mg/dl (1.7-2.4); Potassium 3.8 mmol/L (3.5-5.1); Sodium 138 mmol/L (136-145); Total Protein 6.4 gm/dl (6.0-8.3)
[2025-01-19 11:39] LABS: ALC (manual) 1.43 K/uL (1.2-3.4); ANC (manual) 20.85 K/uL (1.4-6.5); Eosinophils # (manual) 5.43 K/uL (0-0.50); Eosinophils % (manual) 19 %; Lymphocytes # (manual) 1.43 K/uL (1.2-3.4); Lymphocytes % (manual) 5 %; Monocytes # (manual) 0.86 K/uL (0.11-0.59); Monocytes % (manual) 3 %; Neutrophils # (manual) 20.85 K/uL (1.40-6.50); Neutrophils % (manual) 73 %
[2025-01-19] MEDS: cefTRIAXone SODIUM 2,000 MG/50 ML BAG IV STA (11:42)
[2025-01-19 11:43] LABS: Troponin I High Sensitivity 14.3 pg/ml (0-14)
[2025-01-19 12:15] LABS: Adenovirus PCR Not Detected (NotDetected); Bordetella parapertussis PCR Not Detected (NotDetected); Bordetella pertussis PCR Not Detected (NotDetected); Chlamydia pneumoniae PCR Not Detected (NotDetected); Coronavirus 229E PCR Not Detected (NotDetected); Coronavirus CoV-2 (COVID19)PCR Not Detected (NotDetected); Coronavirus HKU1 PCR Not Detected (NotDetected); Coronavirus NL63 PCR Not Detected (NotDetected); Coronavirus OC43PCR Not Detected (NotDetected); Human Metapneumovirus PCR Not Detected (NotDetected); Influenza A PCR Not Detected (NotDetected); Influenza B PCR Not Detected (NotDetected); Mycoplasma pneumoniae PCR Not Detected (NotDetected); Parainfluenza Virus 1 PCR Not Detected (NotDetected); Parainfluenza Virus 2 PCR Not Detected (NotDetected); Parainfluenza Virus 3 PCR Not Detected (NotDetected); Parainfluenza Virus 4 PCR Not Detected (NotDetected); Respiratory Syncytial VirusPCR Not Detected (NotDetected); Rhinovirus/Enterovirus PCR Not Detected (NotDetected)
--- NOTE | 2025-01-19 12:31 | History & Physical Report ---
Date of Service January 19, 2025 Assessment & Plan (1) Cellulitis: Plan: Hypoxic respiratory failure Patient with progressive hypoxia, tachycardia, and clinical unwellness on reassessment. Patient in her motorized chair at time of initial visit, on attempted transfer to bed to perform full skin assessment and weight subsequently does have worsening shortness of breath, nausea/vomiting, and dyspnea. Sinus tachycardia [id number]. Is pending fluids - Empirically heparinized as patient declined and did not appear stable for CTA and was at increased risk of PE due to underlying lung disease/tachycardia/hypoxia and ambulatory limitation Subsequently improving following fluids, additional liters continued with downtrending heart rate and improved clinical appearance. Lactate did uptrend at 4.2 not surprising in the setting of her tachycardia and hypoxia subsequently improving on recheck. Lactate will continue to be trended. CPAP ordered with oxygen bleed as needed Titrate oxygen to goal 90% Sepsis, cellulitis versus pneumonia Leukocytosis, tachycardia, tachypnea, and hypotension on admission Suspect skin source, pneumonia within differential. -Given Rocephin in the ER [facility] is negative. Due to increased level of illness and history of both Pseudomonas and MRSA within the last year will expand antibiotics to cefepime/vancomycin and narrow once clinically improving. Clinically is with some volume overload and concern for pulmonary edema, aggressive fluids were deferred on admission. On evaluation the room and with blood pressure cuff readjustment her blood pressure is actually normal in the low 100s, she is nondistressed and looks well. Mild tachycardia. Significant lower extremity stasis and diminished breath sounds. She has no history of reduced EF and suspect her effusions are more likely exudative/malignant and cardiogenic. Based on her tachycardia, borderline hypotensive, and leukocytosis with suspected source of cellulitis +/- pneumonia. IBW fluid goal would be 1363 cc. 1500 cc ordered with nursing instructions to recheck for rales or respiratory DM stationery 500 cc. 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 Was pending referral to tertiary care with cystectomy evaluation by urology.CTA/P 08/2024: Anterior bladder wall thickening TURBT 12/20/24: Incomplete resection. Pathology showed poorly differentiated carcinoma with abundant necrosis consistent with invasive high-grade urothelial carcinoma. Last chest CT imaging 02/2024 did not show evidence of metastatic disease and no persistent airspace opacities Chest x-ray 01/19/2025 shows interval development of numerous rounded masslike opacities highly suggestive of metastatic disease. Small right pleural effusion. Right midlung and lower lung airspace opacity suspicious for loculated effusion, pleural lesion, versus pneumonia. Cardiomegaly with mild pulmonary edema is noted CTpelvis: Increase in size of peripherally enhancing masslike focus on anterior bladder 7.2 x 3.5 cm consistent with urothelial neoplasm. Diffusely thickened enhancing bladder wall and urothelial thickening of the left ureter infectious or neoplastic is within differential. Mild left hydro. Interval development of multiple enlarged pelvic lymph nodes. Sacral decubitus ulcer with skin thickening and subcutaneous induration favoring cellulitis without abscess. Moderate amount of stool within the rectum. CTA pending due to dyspnea, shortness of breath, hypoxia, and tachypnea with underlying malignancy. DDx includes due to malignancy, PE, pneumonia. To characterize urothelial carcinoma progression/changes and to visualize her sacral ulcer this been extended to a CTA/P with contrast. Sacral ulcer On exam ulcer is without significant erythema and some scant discharge. S/p excisional debridement of sacral decubitus ulcer 12/20/2024 Has been following with wound care, concerns as outpatient for stool contamination of the site. Wound VAC was limited by extended periods of sitting and sliding likely dislodge VAC. Was discussed with patient and and reported would not be feasible to offload her as had no help nurse was at work at home and was not interested in reducing her sitting time/offloading at last follow- up. CT with evidence of sacral cellulitis without abscess. Leukocytosis is present Prior cultures positive for Proteus vulgaris, Morganella morganii with intermediate resistance to Unasyn. History of urine cultures positive for pansensitive E. coli. Surface culture of the leg 02/2024 was positive for Pseudomonas and MRSA. Additional wound culture 03/02/2024 was positive for MRSA Cefepime/vancomycin continued Goals of Care - At the bedside did have a discussed the new findings on her chest x-ray and that these are new compared to her last CTchest. Did discuss goals of care her understanding of the illness, and which she would like to do moving forward with the new information. Patient somewhat stunned and reports she has to take some time to think this with her . She reports that she would like to try to treat and survive her cancer, and recognizes that if the lesions are metastatic in her lung that it is likely a fairly aggressive malignancy given the changes in her lymph nodes on last CT and some development of multiple lesions. She is aware that differential is most likely from her bladder although could include recurrent breast given her past history. She would like to have further workup with imaging to better characterize the findings, and discussed with both hematology oncology and palliative care before making any decisions moving forward. Discussed CODE STATUS. Discussed the nature and picture of CPR and resuscitation. She would like to think about this and discuss this further when her who is on his way here, but for now would like resuscitation in any event/cast or if he and confirms a full code Spina bifida With chronic lower extremity changes, no sensation below the navel. Noted Ulcer precautions Bilateral lower extremity venous stasis ulcers Continue routine wound care. Aquacel Ag/abdominal pads daily. Nystatin powder to left posterior knee. Does not appear overtly infected, and would be covered with antibiotics ordered for evidence of sacral cellulitis regardless History of Takotsubo cardiomyopathy Follows with [facility] cardiology No history of epicardial coronary artery disease on prior evaluation. 07/2016 had regional wall motion abnormalities and reduced EF which normalized within 1 week. Echo follow-up 10/2022 with EF 60 to 65%. Leg swelling is felt to be predominantly due to chronic venous stasis rather than ongoing heart failure Bilateral renal artery stenosis, hypertension Hypotensive initially, with cuff replacement and adjustment BP normal Trend renal function, BP Severe GASTON With nighttime oxygen dependence. Continue CPAP with oxygen bleed at bedtime Titrate oxygen as needed to goal greater than 90% (2) Venous stasis ulcers of both lower extremities: (3) Hx of aspiration pneumonitis: (4) DVT (deep venous thrombosis): (5) Hiatal hernia: History of Present Illness Primary Care Provider: Fartun Frank PA-C Minerva is a 74-year-old female with a past medical history of bilateral lower extremity venous stasis with ulcers, spina bifida with no sensation below the navel and wheelchair-bound at baseline, pressure ulcer unstageable of the sacrum present on admission, stress cardiomyopathy with normalized EF and without known ischemic coronary disease, recently diagnosed bladder cancer who presents to the ER with progressive cough over 2 weeks additional fatigue. Patient endorses that she has had a poor appetite, increased cough over the last 2 weeks, and some shortness of breath especially with exertion. She has a chronic sacral ulcer which was recently debrided. Wound VAC had been discussed with her however due to her mobility deficits and limited assistance at home and incontinence at baseline was not able to accommodate this. She does not have any feeling from the waist down so does not get sacroiliac pain. She has missed several wound care visits recently. She denies fever chills or sweats but feels weak. At the bedside did have a discussed the new findings on her chest x-ray and that these are new compared to her last CTchest. Did discuss goals of care her understanding of the illness, and which she would like to do moving forward with the new information. Patient somewhat stunned and reports she has to take some time to think this with her . She reports that she would like to try to treat and survive her cancer, and recognizes that if the lesions are metastatic in her lung that it is likely a fairly aggressive malignancy given the changes in her lymph nodes on last CT and some development of multiple lesions. She is aware that differential is most likely from her bladder although could include recurrent breast given her past history. She would like to have further workup with imaging to better characterize the findings, and discussed with both hematology oncology and palliative care before making any decisions moving forward. Discussed CODE STATUS. Discussed the nature and picture of CPR and resuscitation. She would like to think about this and discuss this further when her who is on his way here, but for now would like resuscitation in any event/cast or if he and confirms a full code Medical History: Reviewed Medications: Reviewed Surgical History: Reviewed Family history: Reviewed Allergies: Reviewed Social History: Denies tobacco/alcohol use Code Status: Full code Allergies Allergy/AdvReac Type Severity Reaction Status Date / Time nalidixic acid Allergy Intermediate Rash Verified 01/03/25 13:03 Home Medications Medication Instructions Recorded Confirmed Type Oxygen Home #1 ea 05/21/21 01/03/25 Rx pantoprazole 40 mg tablet,delayed 40 mg PO DAILY 10/20/21 01/19/25 History release anastrozole 1 mg tablet (Arimidex) 1 mg PO QAM 10/23/22 01/19/25 History levothyroxine 50 mcg tablet 50 mcg PO UD 10/23/22 01/19/25 History atorvastatin 40 mg tablet 40 mg PO QAM 01/13/24 01/19/25 History sertraline 50 mg tablet (Zoloft) 50 mg PO QAM PRN Other 01/13/24 01/19/25 History aspirin 81 mg tablet,delayed 81 mg PO QAM #0 tabs 01/20/24 01/19/25 Rx release amlodipine 5 mg tablet (Norvasc) 2.5 mg (1/2 x 5 mg) PO QAM #30 tabs 02/24/24 01/19/25 Rx albuterol 90 mcg/actuation aerosol 90 mcg inhalation DAILY PRN 12/06/24 01/19/25 History inhaler Shortness Of Breath ammonium lactate 12 % topical cream 1 applic topical DAILY Skin 12/06/24 01/19/25 History Removal potassium chloride 10 mEq 10 meq PO QAM 12/06/24 01/19/25 History tablet,extended release collagenase clostridium histo. 250 1 applic topical DAILY #30 grams 01/03/25 01/19/25 Rx unit/gram topical ointment (Santyl) furosemide 40 mg tablet (Lasix) 40 mg PO UD 01/19/25 01/19/25 History Past Med/Surg History Problem List GASTON (obstructive sleep apnea) Abnormal chest x-ray History of spina bifida (Acute) Acute dyspnea (Acute) Cough (Acute) Cancer, metastatic to lung (Acute) Acute hypoxemic respiratory failure (Acute) Urothelial carcinoma of bladder (Acute) Bladder mass Venous stasis ulcers of both lower extremities (Acute) Hx of aspiration pneumonitis (Acute) Anemia (Acute) Metabolic encephalopathy Allergy to fluoroquinolone Breast cancer Weakness (Acute) Hypotension Heart failure Chronic acquired lymphedema (Chronic) Subclinical hypothyroidism Hydronephrosis Nocturnal hypoxemia DVT (deep venous thrombosis) Hiatal hernia H/O section Hx of cholecystectomy Medical History Renal artery stenosis Mild/bilateral per cardio Unstageable pressure ulcer to the sacrum/lower back region - reason for upcoming debridement Multiple wounds Currently following [facility] - BLE Venous stasis ulcers to bilateral LEs- Poor historian Hypothermia 12/2023 - 01/2024 [facility] "Sometimes I get cold and get brought to the ER for a warming blanket to get me warmed up" as per patient Hiatal hernia Hx of deep venous thrombosis Pt unsure - EMR 09/2018 Hx of Clostridium difficile infection Pt unsure - EMR 09/2018 - pt denies any issues at this time Hx of breast cancer "Its been a couple years" no chemo/xrt/surgery - CCP Bladder mass Reason for procedure Hx of respiratory failure 12/2023 - [facility] IP History of non-ST elevation myocardial infarction (NSTEMI) pt denies - EMR 2015 - Dr Stover CHF (congestive heart failure) Pt Denies - Dr Stover EF 65-70% on 12/2023 ECHO Per cardio records - hx of Takotsubo CM- moderate to severe LV dysfunction 07/2016 that resolved in four days Anemia Hypothyroidism Cellulitis hx - Currently following [facility] for multiple wounds Osteomyelitis no osteomyelitis per 11/08/[address] Constipation Intermittent CAD (coronary artery disease) No Stents - Dr Stover No evidence of epicardial CAD per cardio records History of CVA (cerebrovascular accident) - 04/2021; Residual - Right Arm - No Neurologist Severe obstructive sleep apnea CPAP Chronic cough Intermittent- no current issues Meningitis spinal 1986 Lymphedema of both lower extremities Hypertension Spina bifida (06/21/13) Motorized Wheelchair/Get Lift Paraplegia Motorized Wheelchair/Egt Lift Neurogenic bladder (06/21/13) Surgical History S/P debridement (12/20/24) Excisional Debridement Sacral Decubitus Ulcer [id number] down to subcutaneous tissue (Not Applicable) - Bharathi Moon, Hx of colonoscopy Hx laparoscopic cholecystectomy Hx of esophagogastroduodenoscopy Hx of section x1 H/O bone graft Left Knee, Right Ankle, Right Upper Thigh - [place] Family History Father Hypertension Myocardial infarction Herniated disc Mother Myocardial infarction Colorectal cancer Uterine cancer Other Family history non-contributory Social History Smoking Status: Never smoker Second Hand Exposure: No; Do You Dip or Chew Tobacco: No; Hx Alcohol Use: No Hx Substance Use: No Preferred Language: Gabonese Communication Ability: Effective Visual Impairment: Limited Hearing Ability: Normal Wire Harness 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 NAD. Cooperative. Appears frail HEENT: Atraumatic, normocephalic. Vision/hearing intact Pulm: Diminished, coarse in the bases and cleared on deep breathing. Subsequently following decompensation did remain clear to deep breathing with fluids Cardiac: RRR, -mrg. Radial pulses intact and symmetrical. Abdominal: Nontender, nondistended, soft. BS present. Sarcal: Sacral wound with scant surrounding erythema, some minimal purulence and depth unstageable on admission. Ext: diffuse swelling, chronic spina bifida deformities present. bilateral LE w ounds without overt warmth/discharge. No sensation to soft or sharp touch in the legs bilat. Results & Data Results & Data Vital Signs (Past 12 Hours) Vital Signs Temp Pulse Resp BP Pulse Ox O2 Del Method 01/19/25 11:00 88 22 106/73 91 Room Air 01/19/25 10:56 Room Air 01/19/25 09:58 36.6 C 104 H 18 107/62 93 Room Air PG Care Time/CCT Total # of Minutes Spent Total Time Spent with Patient: Total time spent is greater than 50% in coordination of care (as documented) at patient's floor/unit and/or counseling patient: Coding Level of Care Code 73750 INT INP/OBS CARE MIN Diagnoses Cellulitis L03.90 Site of cellulitis: unspecified site Venous stasis ulcers of both lower extremities I83.019; I83.029; L97.919; L97.929 Hx of aspiration pneumonitis Z87.09 DVT (deep venous thrombosis) I82.409 Hiatal hernia K44.9 (1) Cellulitis Site of cellulitis: unspecified site Qualified Code(s): L03.90 - Cellulitis, unspecified
[2025-01-19] MEDS: ONDANSETRON INJ 2 MG/ML 2 ML VIAL ONE (14:30)
[2025-01-19] MEDS: Patient's WEIGHT Needed SCH (14:32)
[2025-01-19] MEDS: ONDANSETRON INJ 2 MG/ML 2 ML VIAL IV ONE (14:34)
--- NOTE | 2025-01-19 14:38 | Pulmonary Consultation ---
Date of Consultation January 19, 2025 Assessment & Plan (1) Abnormal chest x-ray: (2) Acute hypoxemic respiratory failure: (3) Urothelial carcinoma of bladder: (4) Spina bifida: Spinal region: unspecified Presence of hydrocephalus: unspecified hydrocephalus presence Qualified Code(s): Q05.9 - Spina bifida, unspecified (5) GASTON (obstructive sleep apnea): Plan 2D echo 01/14/2024: EF 65 to 70%, RV not well-visualized --Acute hypoxic respiratory failure Patient is on 2 and half liters oxygen at night leading to her CPAP Respiratory BioFire is negative for everything Procalcitonin 0.39 -- Multiple pulmonary opacities These are new compared to CAT scan of the chest which was done February [address] abdomen pelvis done August 2024 In summary with recent diagnosis of bladder cancer, possibility of malignancy/metastatic spread is high Although septic emboli with pulmonary infiltrate is also a possibility --GASTON On CPAP at home with 1 and half liter oxygen bled into it Plan: I think the sinus tachycardia is most likely from sepsis along with volume depletion Give at least 1.5 L of IV fluid bolus. Follow-up random cortisol Recommend antibiotics cefepime and vancomycin till we have ruled out MRSA in the wound Follow-up nasal MRSA, follow sputum culture Recommend heparin drip as patient is at high risk for pulmonary emboli given the recent diagnosed cancer If the CTA chest is negative okay to discontinue heparin drip Case was discussed with primary team Please note the above document was generated using voice recognition software. It may contain grammatical, syntax or spelling errors.Any formal questions or concerns about the content, text or information contained within the body of this dictation should be directly addressed to the provider for clarification. History of Present Illness History of Present Illness 74-year-old female presented to the hospital for generalized fatigue for over 2 weeks Past medical history: GASTON on CPAP, spina bifida, venous stasis ulcers bilateral lower extremity, decubitus sacral ulcer, HFpEF, history of breast cancer, recently diagnosed bladder cancer not treated Pulmonary consulted for abnormal chest x-ray At the time of examination patient was receiving the first 500 mL of IV fluid When I entered the room her heart rate was in the 140s. By the time I left the room she had received full 500 mL of bolus and her heart rate had decreased to 129-130 She was saturating 97% on 3 L nasal cannula, I went down to 1 and half liter She was not any respiratory distress. She was actually yawning quickly. Her MAP was in the mid 90s. She denies any dysuria given that she has no sensation below the navel No diarrhea Has been coughing since her last 10 days. Her also had some cough. No subjective fever or chills Social history: Lifetime non-smoker Allergies Allergy/AdvReac Type Severity Reaction Status Date / Time nalidixic acid Allergy Intermediate Rash Verified 01/03/25 13:03 Home Medications Medication Instructions Recorded Confirmed Type Oxygen Home #1 ea 05/21/21 01/03/25 Rx pantoprazole 40 mg tablet,delayed 40 mg PO DAILY 10/20/21 01/19/25 History release anastrozole 1 mg tablet (Arimidex) 1 mg PO QAM 10/23/22 01/19/25 History levothyroxine 50 mcg tablet 50 mcg PO UD 10/23/22 01/19/25 History atorvastatin 40 mg tablet 40 mg PO QAM 01/13/24 01/19/25 History sertraline 50 mg tablet (Zoloft) 50 mg PO QAM PRN Other 01/13/24 01/19/25 History aspirin 81 mg tablet,delayed 81 mg PO QAM #0 tabs 01/20/24 01/19/25 Rx release amlodipine 5 mg tablet (Norvasc) 2.5 mg (1/2 x 5 mg) PO QAM #30 tabs 02/24/24 01/19/25 Rx albuterol 90 mcg/actuation aerosol 90 mcg inhalation DAILY PRN 12/06/24 01/19/25 History inhaler Shortness Of Breath ammonium lactate 12 % topical cream 1 applic topical DAILY Skin 12/06/24 01/19/25 History Removal potassium chloride 10 mEq 10 meq PO QAM 12/06/24 01/19/25 History tablet,extended release collagenase clostridium histo. 250 1 applic topical DAILY #30 grams 01/03/25 01/19/25 Rx unit/gram topical ointment (Santyl) furosemide 40 mg tablet (Lasix) 40 mg PO UD 01/19/25 01/19/25 History Patient History Medical History Renal artery stenosis Mild/bilateral per cardio Unstageable pressure ulcer to the sacrum/lower back region - reason for upcoming debridement Multiple wounds Currently following [facility] - BLE Venous stasis ulcers to bilateral LEs- Poor historian Hypothermia 12/2023 - 01/2024 [facility] "Sometimes I get cold and get brought to the ER for a warming blanket to get me warmed up" as per patient Hiatal hernia Hx of deep venous thrombosis Pt unsure - EMR 09/2018 Hx of Clostridium difficile infection Pt unsure - EMR 09/2018 - pt denies any issues at this time Hx of breast cancer "Its been a couple years" no chemo/xrt/surgery - CCP Bladder mass Reason for procedure Hx of respiratory failure 12/2023 - [facility] IP History of non-ST elevation myocardial infarction (NSTEMI) pt denies - EMR 2015 - Dr Stover CHF (congestive heart failure) Pt Denies - Dr Stover EF 65-70% on 12/2023 ECHO Per cardio records - hx of Takotsubo CM- moderate to severe LV dysfunction 07/2016 that resolved in four days Anemia Hypothyroidism Cellulitis hx - Currently following [facility] for multiple wounds Osteomyelitis no osteomyelitis per 11/08/[address] Constipation Intermittent CAD (coronary artery disease) No Stents - Dr Stover No evidence of epicardial CAD per cardio records History of CVA (cerebrovascular accident) - 04/2021; Residual - Right Arm - No Neurologist Severe obstructive sleep apnea CPAP Chronic cough Intermittent- no current issues Meningitis spinal 1986 Lymphedema of both lower extremities Hypertension Spina bifida (06/21/13) Motorized Wheelchair/Get Lift Paraplegia Motorized Wheelchair/Get Lift Neurogenic bladder (06/21/13) Surgical History S/P debridement (12/20/24) Excisional Debridement Sacral Decubitus Ulcer [id number] down to subcutaneous tissue (Not Applicable) - Bharathi Moon DO Hx of colonoscopy Hx laparoscopic cholecystectomy Hx of esophagogastroduodenoscopy Hx of section x1 H/O bone graft Left Knee, Right Ankle, Right Upper Thigh - [place] Family History Father Hypertension Myocardial infarction Herniated disc Mother Myocardial infarction Colorectal cancer Uterine cancer Other Family history non-contributory Social History Smoking Status: Never smoker Second Hand Exposure: No; Do You Dip or Chew Tobacco: No; Hx Alcohol Use: No Hx Substance Use: No Preferred Language: Georgian Communication Ability: Effective Visual Impairment: Limited Hearing Ability: Normal Systems Software Designer Required: No Beliefs That Will Affect Care: None marital status: Current Living Situation: Spouse current occupational status: retired How many Children do You have: 2 Feels Safe at Home: Yes Diet: regular caffeine: Yes (tea) during the past year weight has: increased > 10 lbs Physical Activity Frequency: Does not Exercise Do you think of yourself as: straight/heterosexual Gender Identity: Female Assistive Devices: CPAP, Glasses, Oxygen - at Night and Other Review of Systems 2 Review of Systems: All systems reviewed & are unremarkable except as noted in HPI & below Physical Exam 2 Physical Exam: Constitutional: No acute distress HEENT: EOMI, PERRLA Respiratory system: Good air entry bilaterally, no wheeze, no rhonchi, no crackles CVS: S1-S2 positive, no murmurs or gallops Abdomen: Soft, nontender, nondistended, positive bowel sounds x4, obese Extremities: +2 pulses bilaterally radialis/ dorsalis pedis, no cyanosis, chronic pitting edema bilateral lower extremity Neuro: Awake alert oriented x3 Psych: Normal mood and affect G/U: No Curtis Skin: no rashes, warm and dry Lymphatic: no cervical or axillary lymphadenopathy Results & Data Results & Data Vital Signs (Past 12 Hours) Vital Signs Temp Pulse Resp BP Pulse Ox O2 Del Method O2 Flow Rate 01/19/25 13:45 131 H 29 H 174/91 H 93 Nasal Cannula 3 01/19/25 13:15 104 H 21 126/59 L 98 Nasal Cannula 1 01/19/25 13:09 108 H 31 H 111/68 97 Nasal Cannula 1 01/19/25 12:32 95 H 01/19/25 12:15 96/59 L 01/19/25 12:00 97 H 18 111/55 L 90 Nasal Cannula 1 01/19/25 11:00 88 22 106/73 91 Room Air 01/19/25 10:56 Room Air 01/19/25 09:58 36.6 C 104 H 18 107/62 93 Room Air Laboratory Results 01/19/25 10:50 01/19/25 10:50 PG Care Time/CCT Total # of Minutes Spent Total Time Spent with Patient: Total time spent is greater than 50% in coordination of care (as documented) at patient's floor/unit and/or counseling patient: Coding Level of Care Code 33229 INT INP/OBS CARE 3/75MIN Diagnoses Abnormal chest x-ray R93.89 Acute hypoxemic respiratory failure J96.01 Urothelial carcinoma of bladder C67.9 Spina bifida, unspecified hydrocephalus presence, unspecified spinal region Q05.9 Spinal region: unspecified Presence of hydrocephalus: unspecified hydrocephalus presence GASTON (obstructive sleep apnea) G47.33
[2025-01-19] MEDS ORDERED: VANCOMYCIN CONSULT ACTIVE PRN (14:42)
[2025-01-19] MEDS ORDERED: VANCOMYCIN HCL 1,250 MG in SODIUM CHLORIDE 0.9% 250 ML IV SCH (14:45)
[2025-01-19] MEDS ORDERED: Heparin IV Adult Wt-Based Standard w/ INITIAL Bolus Protocol IV SCH (14:50)
[2025-01-19] MEDS: HEPARIN SOD (PORCINE) 1000 UNIT/ML IV ONE (15:02)
[2025-01-19] MEDS: HEPARIN 25000 UNIT/500 ML D5W 25,000 UNITS/500 ML BAG IV SCH (15:03)
[2025-01-19] MEDS: CEFEPIME 2000MG 2,000 MG/20 ML SYR IV SCH (15:06)
[2025-01-19] MEDS: CEFEPIME 2,000 MG/20 ML IV PUSH IV ONE (15:06)
[2025-01-19] MEDS: LACTATED RINGER'S 500 ML IV ONE ×2 (15:08→19:39)
[2025-01-19] MEDS: SODIUM CHLORIDE 0.9% 500 ML IV ONE (15:11)
[2025-01-19] MEDS: VANCOMYCIN HCL 2,250 MG in SODIUM CHLORIDE 0.9% 500 ML IV ONE (15:21)
--- NOTE | 2025-01-19 15:34 | Pharmacy Report ---
Pharmacy PK ABX Note - Date of Service January 19, 2025 - Assessment and Plan Assessment 74 year old F receiving vancomycin and cefepime for treatment of cellulitis vs. pulmonary infection. History of bladder cancer with mets, sacral ulcer s/p debridement 12/20. Blood cultures pending. Renal function stable. Day #1 of antimicrobial therapy. Plan Vancomycin * Loading dose: 2250 mg IV x 1 * Maintenance dose: 1000 mg IV every 12 hours * Regimen is predicted to achieve target AUC/DESTINEY of 400-600 mg/L.hr * Will obtain a level after ~ 48h of therapy or sooner if clinically indicated. Pharmacy will continue to follow and will adjust dose/frequency as necessary. Thank you. Pharmacy has transitioned to AUC monitoring for vancomycin. AUC/DESTINEY is the preferred PK/PD target and is associated with decreased risk of nephrotoxicity compared to traditional trough targets.
[2025-01-19 15:51] LABS: INR 1.1 (0.9-1.1); Partial Thromboplastin Time 27 Seconds (21-31); Prothrombin Time 11.9 Seconds (9.0-12.0)
[2025-01-19 16:19] LABS: Thyroid Stimulating Hormone 3.405 uIu/ml (0.300-4.500)
[2025-01-19] MEDS: OPTIRAY 320 125ml IV ONE (16:33)
--- NOTE | 2025-01-19 16:56 | CT Scan Report ---
HISTORY: History of malignancy. Evaluation for PE. Dyspnea. TECHNIQUE: Helical CT angiography of the chest was performed following uneventful administration of 115 mL of Optiray 320 IV contrast. Images are presented in axial, sagittal, coronal reformats. Coronal and sagittal 3D MIP reconstructions are also provided. COMPARISON: Chest CT dated 02/20/2024 FINDINGS: There is no evidence of acute pulmonary embolism within the limitations of contrast timing and respiratory motion artifact. The thoracic aorta is normal in caliber. Tortuous thoracic aorta. Mild atherosclerotic vascular disease of the aorta and arch vessels. Mild cardiomegaly. Coronary artery calcifications are present. Thoracic esophagus is unremarkable. Innumerable bilateral pulmonary nodules and masses consistent with metastatic disease. The largest in the left upper lobe on axial image 51 measures 3.3 cm in diameter. Small pleural effusions. There is no pneumothorax. Severe scoliosis. Degenerative changes of the spine. The included upper abdomen is unremarkable. IMPRESSION: 1. No evidence of acute pulmonary embolism within the limitations of contrast timing and respiratory motion artifact. 2. Innumerable bilateral pulmonary metastases. 3. Small bilateral pleural effusionsmay be malignant. 4. Mild cardiomegaly. Coronary artery calcifications. Electronically signed by Ten Marshall 01-19-2025 4:56 PM
--- NOTE | 2025-01-19 17:05 | CT Scan Report ---
HISTORY: Bladder cancer progression. Sacral cellulitis. TECHNIQUE: Helical CT imaging of the abdomen pelvis was performed following uneventful administration 115 mL of Optiray IV contrast. Images are presented in axial, sagittal, and coronal reformats. COMPARISON: CTA of the chest from the same day. FINDINGS: Small pleural effusions. Innumerable bilateral pulmonary metastases. Cardiomegaly. Low-density lesion in the left hepatic lobe favoring a cyst. Liver is otherwise unremarkable. The gallbladder is surgically absent. The spleen, adrenal glands, and pancreas are unremarkable. Bilateral renal cortical hypodense lesions. The larger lesions consistent with cysts. The subcentimeter lesions are too small to accurately characterize. The stomach and duodenum are unremarkable. The small bowel loops are normal in caliber. The colon is normal in caliber. Malignant appearance of the urinary bladder with intraluminal mass and diffuse irregular wall thickening.. The uterus is unremarkable. No suspicious lymphadenopathy in the abdomen. There are enlarged malignant appearing lymph nodes along the left pelvic sidewall with central necrosis. Induration and soft tissue thickening is seen extending between the rectum and the infra sacralSkin surface concerning for cellulitis and possible fistula between the rectum and the skin surface. No drainable fluid collection is seen. There are no findings to suggest sacral osteomyelitis. 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 This mass appears to communicate with the central canal and measures 6.4 x 5.5 cm. IMPRESSION: 1. Findings consistent with metastatic bladder malignancy with malignant appearance of the urinary bladder with intraluminal mass and diffuse irregular wall thickening.There are centrally necrotic malignant appearing lymph nodes along the left pelvic sidewall. 2. Induration and soft tissue thickened extending between the posterior wall of the rectum and the infra sacral skin surface concerning for cellulitis and possible fistula. No drainable fluid collection or abscess. No findings of acute osteomyelitis. 3. 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 This is similar in appearance to the prior study and measures 6.4 x 5.5 cm. 4. Numerous additional chronic and/or incidental findings as above. Electronically signed by Ten Marshall 01-19-2025 5:05 PM
[2025-01-19] MEDS: ENOXAPARIN INJ 40 MG/0.4 ML SYR SQ SCH (19:38)
[2025-01-20 00:52] LABS: Appearance Urine Turbid (Clear); Bacteria Urine Automated 4+ (None Seen); Bilirubin Urine Negative (Negative); Blood Urine 3+ (Negative); Cast Urine Automated >20 /lpf (0-2); Color Urine Orange; Glucose Urine UA Negative (Negative); Ketones Urine Negative (Negative); Leukocyte Esterase Urine 3+ (Negative); Nitrite Urine Positive (Negative); Protein Urine 3+ (Negative); RBC Urine Automated >20 /hpf (0-2); Specific Gravity Urine > 1.045 (1.000-1.030); Urobilinogen Urine Negative (Negative); WBC Urine Automated >50 /hpf (0-5); pH Urine 6.5 (4.5-7.5)
[2025-01-20 01:05] LABS: Calcium Oxalate Crystals Urine Present (None Prsent)
[2025-01-20] MEDS: LEVOTHYROXINE SODIUM 50 MCG TABLET PO SCH (06:21)
[2025-01-20] MEDS: VANCOMYCIN HCL 1,000 MG/270 ML BAG IV SCH (06:22)
[2025-01-20 07:00] LABS: Hematocrit (blood only) 22.5 % (37.0-47.0); Hemoglobin 6.9 g/dl (12.0-16.0); Mean Corpuscular Hemoglobin 25.9 pg (25.0-34.0); Mean Corpuscular Hgb Conc 30.7 g/dL (32.0-36.0); Mean Corpuscular Volume 84.6 fL (80.0-100.0); Mean Platelet Volume 10.8 fL (9.4-12.4); Nucleated RBC # (auto) 0.02 K/uL (0.00-0.12); Nucleated RBC % (auto) 0.1 %; Platelet Count 339 K/uL (130-400); RDW Coefficient of Variation 19.4 % (11.5-14.5); RDW Standard Deviation 56.6 fL (36.4-46.3); Red Blood Count 2.66 M/uL (4.20-5.40); White Blood Count 26.26 K/ul (4.8-10.8)
[2025-01-20 07:14] LABS: BUN Creatinine Ratio 39.6 (10-20); Calcium 8.3 mg/dl (8.6-10.3); Creatinine Clr Calc Pharmacy 92.1 ml/min; Potassium 4.4 mmol/L (3.5-5.1)
[2025-01-20 07:19] LABS: Basophils # (auto) 0.07 K/uL (0.00-0.20); Basophils % (auto) 0.3 %; Eosinophils % (auto) 11.4 %; Immature Granulocytes # (auto) 0.51 K/uL (0.01-0.20); Immature Granulocytes % (auto) 1.9 %; Lymphocytes # (auto) 2.36 K/uL (1.20-3.40); Monocytes # (auto) 0.81 K/uL (0.11-0.59); Monocytes % (auto) 3.1 %; Neutrophils # (auto) 19.51 K/uL (1.40-6.50); Neutrophils % (auto) 74.3 %; Poikilocytosis Present; Polychromasia 1+; Toxic Vacuolation 1+
--- NOTE | 2025-01-20 07:54 | Oncology Consultation ---
Date of Consultation January 20, 2025 Assessment & Plan (1) Urothelial carcinoma of bladder: (2) Acute hypoxemic respiratory failure: (3) Cancer, metastatic to lung: (4) Anemia: Plan -Admitted with respiratory symptoms and found to have probable lung metastasis likely secondary to bladder cancer. Also has a history of breast cancer for which she is on anastrozole. -Had an excessive discussion with patient today. Explained to her that based on imaging, she appears to have stage IV metastatic cancer for which goals of treatment would be to prolong life and improve symptoms. Given multiple comorbidities, recurrent infections concerned that she might not be a candidate for chemotherapy. However, if patient decides to receive some form of systemic therapy to prolong life she would need biopsy of lung lesion to confirm metastatic bladder cancer. Patient indicated that she would like some time to think about options provided and to discuss further with her . -Regarding chronic anemia, this is likely multifactorial due to iron deficiency and anemia of chronic disease. Has never had a bone marrow biopsy. Will obtain anemia labs including iron studies, B12 and folate level. Thank you for this consult. Will follow peripherally while she is in the hospital. Please feel free to call if you have any further questions. History of Present Illness Reason for Consultation: Urothelial cancer, lung nodules Attending Physician: Naresh Golden MD History of Present Illness Ms. Arreguin is a pleasant 74-year-old female with history of Stage I right breast cancer on anastrozole, chronic anemia, spina bifida who was recently diagnosed with urothelial carcinoma. She presented to the ER with shortness of breath. CTA chest revealed innumerable bilateral pulmonary metastasis with small bilateral pleural effusions. CT abdomen and pelvis revealed findings consistent with metastatic bladder malignancy with malignant appearance of the urinary bladder with intraluminal mass and irregular wall thickening, centrally necrotic malignant appearing lymph nodes along the left pelvic sidewall. Allergies Allergy/AdvReac Type Severity Reaction Status Date / Time nalidixic acid Allergy Intermediate Rash Verified 01/03/25 13:03 Home Medications Medication Instructions Recorded Confirmed Type Oxygen Home #1 ea 05/21/21 01/03/25 Rx pantoprazole 40 mg tablet,delayed 40 mg PO DAILY 10/20/21 01/19/25 History release anastrozole 1 mg tablet (Arimidex) 1 mg PO QAM 10/23/22 01/19/25 History levothyroxine 50 mcg tablet 50 mcg PO UD 10/23/22 01/19/25 History atorvastatin 40 mg tablet 40 mg PO QAM 01/13/24 01/19/25 History sertraline 50 mg tablet (Zoloft) 50 mg PO QAM PRN Other 01/13/24 01/19/25 History aspirin 81 mg tablet,delayed 81 mg PO QAM #0 tabs 01/20/24 01/19/25 Rx release amlodipine 5 mg tablet (Norvasc) 2.5 mg (1/2 x 5 mg) PO QAM #30 tabs 02/24/24 01/19/25 Rx albuterol 90 mcg/actuation aerosol 90 mcg inhalation DAILY PRN 12/06/24 01/19/25 History inhaler Shortness Of Breath ammonium lactate 12 % topical cream 1 applic topical DAILY Skin 12/06/24 01/19/25 History Removal potassium chloride 10 mEq 10 meq PO QAM 12/06/24 01/19/25 History tablet,extended release collagenase clostridium histo. 250 1 applic topical DAILY #30 grams 01/03/25 01/19/25 Rx unit/gram topical ointment (Santyl) furosemide 40 mg tablet (Lasix) 40 mg PO UD 01/19/25 01/19/25 History Patient History Medical History Renal artery stenosis Mild/bilateral per cardio Unstageable pressure ulcer to the sacrum/lower back region - reason for upcoming debridement Multiple wounds Currently following [facility] - BLE Venous stasis ulcers to bilateral LEs- Poor historian Hypothermia 12/2023 - 01/2024 [facility] "Sometimes I get cold and get brought to the ER for a warming blanket to get me warmed up" as per patient Hiatal hernia Hx of deep venous thrombosis Pt unsure - EMR 09/2018 Hx of Clostridium difficile infection Pt unsure - EMR 09/2018 - pt denies any issues at this time Hx of breast cancer "Its been a couple years" no chemo/xrt/surgery - CCP Bladder mass Reason for procedure Hx of respiratory failure 12/2023 - [facility] IP History of non-ST elevation myocardial infarction (NSTEMI) pt denies - EMR 2015 - Dr Stover CHF (congestive heart failure) Pt Denies - Dr Stover EF 65-70% on 12/2023 ECHO Per cardio records - hx of Takotsubo CM- moderate to severe LV dysfunction 07/2016 that resolved in four days Anemia Hypothyroidism Cellulitis hx - Currently following [facility] for multiple wounds Osteomyelitis no osteomyelitis per 11/08/[address] Constipation Intermittent CAD (coronary artery disease) No Stents - Dr Stover No evidence of epicardial CAD per cardio records History of CVA (cerebrovascular accident) - 04/2021; Residual - Right Arm - No Neurologist Severe obstructive sleep apnea CPAP Chronic cough Intermittent- no current issues Meningitis spinal 1986 Lymphedema of both lower extremities Hypertension Spina bifida (06/21/13) Motorized Wheelchair/Get Lift Paraplegia Motorized Wheelchair/Get Lift Neurogenic bladder (06/21/13) Surgical History S/P debridement (12/20/24) Excisional Debridement Sacral Decubitus Ulcer [id number] down to subcutaneous tissue (Not Applicable) - Bharathi Moon DO Hx of colonoscopy Hx laparoscopic cholecystectomy Hx of esophagogastroduodenoscopy Hx of section x1 H/O bone graft Left Knee, Right Ankle, Right Upper Thigh - [place] Family History Father Hypertension Myocardial infarction Herniated disc Mother Myocardial infarction Colorectal cancer Uterine cancer Other Family history non-contributory Social History Smoking Status: Never smoker Second Hand Exposure: No; Do You Dip or Chew Tobacco: No; Hx Alcohol Use: No Hx Substance Use: No Preferred Language: Tanzanian Communication Ability: Effective Visual Impairment: Limited Hearing Ability: Normal Supplier Relationship Director Required: No Beliefs That Will Affect Care: None marital status: Current Living Situation: Spouse current occupational status: retired How many Children do You have: 2 Feels Safe at Home: Yes Diet: regular caffeine: Yes (tea) during the past year weight has: increased > 10 lbs Physical Activity Frequency: Does not Exercise Do you think of yourself as: straight/heterosexual Gender Identity: Female Assistive Devices: Mechanical Lift, Scooter/Electric Scooter and Other Results & Data Vital Signs (Past 12 Hours) Vital Signs Temp Pulse Pulse Resp BP Pulse Ox O2 Del Method 01/20/25 07:15 36.5 C 71 17 103/59 L 97 BiPAP 01/20/25 04:12 36.8 C 78 16 106/58 L 94 Nasal Cannula 01/20/25 02:20 17 93 01/20/25 00:00 36.7 C 74 18 100/60 97 Nasal Cannula 01/19/25 23:31 72 17 92 01/19/25 21:30 Nasal Cannula O2 Flow Rate FiO2 01/20/25 07:15 01/20/25 04:12 3 01/20/25 02:20 28 01/20/25 00:00 3 01/19/25 23:31 28 01/19/25 21:30 3 (3) Cancer, metastatic to lung Laterality: bilateral Qualified Code(s): C78.01 - Secondary malignant neoplasm of right lung; C78.02 - Secondary malignant neoplasm of left lung
[2025-01-20] MEDS: ATORVASTATIN 40 MG TAB PO SCH (08:18)
[2025-01-20] MEDS: PANTOprazole 40 MG TAB PO SCH (08:18)
[2025-01-20] MEDS: SERTRALINE HCL 50 MG TABLET PO SCH (08:18)
[2025-01-20] MEDS: POTASSIUM CHLORIDE 10 MEQ TABCR PO SCH (08:20)
[2025-01-20 09:19] LABS: Folate (Folic Acid),Ser orPlas 4.17 ng/ml (>5.38)
[2025-01-20] MEDS ORDERED: SODIUM CHLORIDE 0.9% 50 ML IV PRN ×2 (10:45→12:17)
[2025-01-20] MEDS ORDERED: SODIUM CHLORIDE 0.9% 100 ML IV PRN ×2 (10:45→12:17)
--- NOTE | 2025-01-20 10:46 | Pulmonology Progress Note ---
Date of Service January 20, 2025 Assessment & Plan (1) Abnormal chest x-ray: (2) Acute hypoxemic respiratory failure: (3) Urothelial carcinoma of bladder: (4) Spina bifida: Spinal region: unspecified Presence of hydrocephalus: unspecified hydrocephalus presence Qualified Code(s): Q05.9 - Spina bifida, unspecified (5) GASTON (obstructive sleep apnea): Plan CTA chest 01/19/2025 personally reviewed: No pulmonary emboli Multiple bilateral pulmonary nodules appreciated measuring up to 3.3 cm Severe scoliosis Minimal mediastinal lymphadenopathy 2D echo 01/14/2024: EF 65 to 70%, RV not well-visualized --Acute hypoxic respiratory failure Patient is on 2 and half liters oxygen at night leading to her CPAP Respiratory BioFire is negative for everything Procalcitonin 0.39 -- Multiple pulmonary opacities These are new compared to CAT scan of the chest which was done February [address] abdomen pelvis done August 2024 In summary with recent diagnosis of bladder cancer, possibility of malignancy/metastatic spread is high Although septic emboli with pulmonary infiltrate is also a possibility --GASTON On CPAP at home with 1 and half liter oxygen bled into it --History of malignant bladder cancer recently diagnosed --Remote history of breast cancer Plan: The probability of the pulmonary nodules being malignant is very high There is high likelihood of it being urothelial in origin. She does have remote history of breast cancer. Given the chronic sacral decubitus ulcers with questionable fistula formation, I am not sure chemotherapy will be well-tolerated as it would make her immunocompromised and probably worsening her infection. Palliative care would be highly recommended. If the patient wants to pursue treatment then biopsying one of the pulmonary nodules CT-guided will be the best approach as it would be least invasive under local anesthesia General anesthesia would not be a good option for her given severe scoliosis as well as probable restrictive lung disease Case was discussed with primary team as well as oncology No further recommendation from pulmonary perspective, will sign off Please call directly with any questions Please note the above document was generated using voice recognition software. It may contain grammatical, syntax or spelling errors.Any formal questions or concerns about the content, text or information contained within the body of this dictation should be directly addressed to the provider for clarification. Admission and Anticipated Discharge Date Admission Date: January 19, 2025 Subjective Patient seen and examined at bedside. No acute distress, no adverse events overnight Patient stated that she is feeling better compared to when she came to the hospital Denies any dizziness, no nausea or vomiting Still coughing on and off. No hemoptysis Denies any chest pain Did use her CPAP overnight Review of Systems 2 Review of Systems: All systems reviewed & are unremarkable except as noted in Subjective Physical Exam 2 Physical Exam: Constitutional: No acute distress HEENT: EOMI, PERRLA Respiratory system: Good air entry bilaterally, no wheeze, no rhonchi, no crackles CVS: S1-S2 positive, no murmurs or gallops Abdomen: Soft, nontender, nondistended, positive bowel sounds x4, obese Extremities: +2 pulses bilaterally radialis/ dorsalis pedis, no cyanosis, chronic pitting edema bilateral lower extremity Neuro: Awake alert oriented x3 Psych: Normal mood and affect G/U: No Curtis Skin: no rashes, warm and dry Lymphatic: no cervical or axillary lymphadenopathy Results & Data Results & Data Vital Signs (Past 12 Hours) Vital Signs Temp Pulse Pulse Resp BP Pulse Ox O2 Del Method 01/20/25 07:39 Nasal Cannula 01/20/25 07:39 67 01/20/25 07:15 36.5 C 71 17 103/59 L 97 BiPAP 01/20/25 04:12 36.8 C 78 16 106/58 L 94 Nasal Cannula 01/20/25 02:20 17 93 01/20/25 00:00 36.7 C 74 18 100/60 97 Nasal Cannula 01/19/25 23:31 72 17 92 O2 Flow Rate FiO2 01/20/25 07:39 3 01/20/25 07:39 01/20/25 07:15 01/20/25 04:12 3 01/20/25 02:20 28 01/20/25 00:00 3 01/19/25 23:31 28 Laboratory Results 01/20/25 10:04 01/20/25 06:04 PG Care Time/CCT Total # of Minutes Spent Total Time Spent with Patient: Total time spent is greater than 50% in coordination of care (as documented) at patient's floor/unit and/or counseling patient: Coding Level of Care Code 27503 SUB INP/OBS CARE 3/50MIN Diagnoses Abnormal chest x-ray R93.89 Acute hypoxemic respiratory failure J96.01 Urothelial carcinoma of bladder C67.9 Spina bifida, unspecified hydrocephalus presence, unspecified spinal region Q05.9 Spinal region: unspecified Presence of hydrocephalus: unspecified hydrocephalus presence GASTON (obstructive sleep apnea) G47.33
[2025-01-20] MEDS: ASPIRIN 81 MG ECTAB PO SCH (15:51)
--- NOTE | 2025-01-20 15:58 | Hospitalist Progress Note ---
Date of Service January 20, 2025 Assessment & Plan (1) Cellulitis: Plan: 74-year-old female with history of spina bifida and persistent chronic sacral wound who presents with weakness functional decline and shortness of breath. Found to have acute respiratory failure with hypoxia and on imaging has what appears to be metastatic urothelial carcinoma with significant lung metastasis. CT scan did rule out pulmonary embolism there is concern for possible multifocal pneumonia associated with these metastasis she is on supplemental oxygen and broad-spectrum antibiotics cefepime and vancomycin, MRSA screen is negative but metastasis are widespread and she has significant health system exposure She is currently on anastrozole treatment for history of breast cancer #Hypoxic respiratory failure Initially hypoxic and tachypneic. Transiently anticoagulated while pending CTA. CTA ruled out pulmonary embolism but showed multiple pulmonary metastasis and concern for multifocal pneumonia continues on antibiotics, seen by pulmonary medicine. Seen by oncology with discussion if patient decides to pursue systemic chemotherapy likely interventional radiology biopsy of lung lesion. Pulmonary medicine does not feel lesions would be easy to biopsy bronchoscopically. #Sepsis, cellulitis versus pneumonia volume resuscitated Leukocytosis, tachycardia, tachypnea, and hypotension on admission Concern for pneumonia versus chronic sacral decubitus ulcer associate with her spina bifida BioFire is negative. Nasal MRSA swab negative however history of both Pseudomonas and MRSA within the last year continues on cefepime/vancomycin #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 Pathology showed poorly differentiated carcinoma. Was pending referral to tertiary care with cystectomy evaluation by urology.CTA/P 08/2024: Anterior bladder wall thickening Chest x-ray 01/19/2025 shows interval development of numerous rounded masslike opacities highly suggestive of metastatic disease. Small effusion with concern for pneumonia CTpelvis: Increase in size of peripherally enhancing masslike focus on anterior bladder 7.2 x 3.5 cm consistent with urothelial neoplasm. Diffusely thickened enhancing bladder wall and urothelial thickening of the left ureter infectious or neoplastic is within differential. Mild left hydro. Interval development of multiple enlarged pelvic lymph nodes. Sacral decubitus ulcer with skin thickening and subcutaneous induration favoring cellulitis without abscess. # Acute anemia, patient transfused 1 unit packed red blood cells. Patient's iron studies did not have significant low iron, unclear if bone marrow involvement with malignancies, patient is folate slightly low oral supplementation as ordered #Sacral ulcer history of spina bifida, CT with concern for cellulitis with possible fistula On exam ulcer is without significant erythema and some scant discharge. S/p excisional debridement of sacral decubitus ulcer 12/20/2024 Cefepime/vancomycin continued #Bilateral lower extremity venous stasis ulcers Continue routine wound care. Aquacel Ag/abdominal pads daily. Nystatin powder to left posterior knee. Does not appear overtly infected, and would be covered with antibiotics ordered for evidence of sacral cellulitis regardless History of Takotsubo cardiomyopathy no heart failure improved ejection fraction Bilateral renal artery stenosis, hypertension Severe GASTON With nighttime oxygen dependence. Continue CPAP with oxygen bleed at bedtime #Goals of Care - At the bedside, Dr. Jamie santamaria did have a discussed the new findings on her chest x-ray and that these are new compared to her last CTchest. Did discuss goals of care her understanding of the illness, and which she would like to do moving forward with the new information. Patient somewhat stunned and reports she has to take some time to think this with her . She reports that she would like to try to treat and survive her cancer, and recognizes that if the lesions are metastatic in her lung that it is likely a fairly aggressive malignancy given the changes in her lymph nodes on last CT and some development of multiple lesions. She is aware that differential is most likely from her bladder although could include recurrent breast given her past history. She would like to have further workup with imaging to better characterize the findings, and discussed with both hematology oncology and palliative care before making any decisions moving forward. Discussed CODE STATUS. Discussed the nature and picture of CPR and resuscitation. (2) Venous stasis ulcers of both lower extremities: (3) Hx of aspiration pneumonitis: (4) DVT (deep venous thrombosis): (5) Hiatal hernia: Admission and Anticipated Discharge Date Admission Date: January 19, 2025 Subjective Patient states she still feels very weak and tired and remains with shortness of breath. She does feel better with her nasal cannula oxygen therapy. She continues a persistent issues with her sacral wound which has been difficult to maintain at home. She acknowledges remembering speaking with pulmonary medicine and medical oncology. Her was not present at the bedside She was consented for blood transfusion and received 1 unit of packed red blood cells on 01/20/2025 Physical Exam Physical Exam: Pleasant female slightly pale Patient has some discomfort laying comfortably due to her previous changes in body habitus with her spina bifida. Her cardiac exam was regular without overt murmurs Her lungs were diminished at the bases with some mild rhonchi Abdomen NABS and soft Extremities are with trace to 1+ edema bilaterally Results & Data Results & Data Vital Signs (Past 12 Hours) Vital Signs Temp Pulse Pulse Resp BP BP Pulse Ox 01/20/25 14:32 97.5 F L 74 17 99/49 L 98 01/20/25 14:02 97.5 F L 78 17 107/57 L 98 01/20/25 13:47 97.5 F L 75 18 104/56 L 99 01/20/25 13:27 97.5 F L 82 18 102/55 L 97 01/20/25 10:56 97.3 F L 78 18 102/50 L 100 01/20/25 07:39 01/20/25 07:39 67 01/20/25 07:15 97.7 F 71 17 103/59 L 97 01/20/25 04:12 98.2 F 78 16 106/58 L 94 O2 Del Method O2 Flow Rate 01/20/25 14:32 2 01/20/25 14:02 2 01/20/25 13:47 2 01/20/25 13:27 3 01/20/25 10:56 Nasal Cannula 3 01/20/25 07:39 Nasal Cannula 3 01/20/25 07:39 01/20/25 07:15 BiPAP 01/20/25 04:12 Nasal Cannula 3 Laboratory Results Reviewed CBC anemia confirmed on recheck marked leukocytosis Reviewed chemistry Reviewed iron panel patient has normal iron low iron binding capacity low transferrin and appropriate B12 with mildly low folic acid PG Care Time/CCT Total # of Minutes Spent Total Time Spent with Patient: Total time spent is greater than 50% in coordination of care (as documented) at patient's floor/unit and/or counseling patient: Coding Level of Care Code 01511 SUB INP/OBS CARE 3/50MIN Diagnoses Cellulitis L03.90 Site of cellulitis: unspecified site Venous stasis ulcers of both lower extremities I83.019; I83.029; L97.919; L97.929 Hx of aspiration pneumonitis Z87.09 DVT (deep venous thrombosis) I82.409 Hiatal hernia K44.9 (1) Cellulitis Site of cellulitis: unspecified site Qualified Code(s): L03.90 - Cellulitis, unspecified
[2025-01-20] MEDS: ONDANSETRON INJ 2 MG/ML 2 ML VIAL IV PRN (21:43)
[2025-01-21 06:50] LABS: Hematocrit (blood only) 28.5 % (37.0-47.0); Hemoglobin 9.1 g/dl (12.0-16.0); Mean Corpuscular Hgb Conc 31.9 g/dL (32.0-36.0); Mean Corpuscular Volume 81.4 fL (80.0-100.0); Platelet Count 387 K/uL (130-400); RDW Coefficient of Variation 19.7 % (11.5-14.5); RDW Standard Deviation 57.1 fL (36.4-46.3); White Blood Count 34.62 K/ul (4.8-10.8)
[2025-01-21 07:04] LABS: BUN Creatinine Ratio 38.3 (10-20); Calcium 8.9 mg/dl (8.6-10.3); Creatinine Clr Calc Pharmacy 103.1 ml/min; Potassium 4.2 mmol/L (3.5-5.1)
[2025-01-21 07:18] LABS: Acanthocytes 1+; Basophils % (auto) 0.3 %; Echinocytes 1+; Eosinophils # (auto) 5.91 K/uL (0.00-0.50); Eosinophils % (auto) 17.1 %; Immature Granulocytes % (auto) 3.2 %; Lymphocytes # (auto) 1.63 K/uL (1.20-3.40); Lymphocytes % (auto) 4.7 %; Monocytes # (auto) 1.26 K/uL (0.11-0.59); Monocytes % (auto) 3.6 %; Neutrophils # (auto) 24.62 K/uL (1.40-6.50); Neutrophils % (auto) 71.1 %; Polychromasia 1+; Toxic Vacuolation 1+
[2025-01-21] MEDS: VANCOMYCIN LEVEL ONE (08:37)
--- NOTE | 2025-01-21 08:44 | Pharmacy Report ---
Pharmacy PK ABX Note - Date of Service January 21, 2025 - Assessment and Plan Assessment 01/21: * Day #3 of Vancomycin and Cefepime. No growth to date in any cultures. Renal fxn is stable. Leukocytosis worsening, WBC 35k today. Remains afebrile. * Vanc trough this morning was supratherapeutic with predicted AUC/DESTNIEY > 600 mg/L.hr. Will decrease vancomycin dose today and delay administration until predicted level < 20 mcg/mL. 01/19: 74 year old F receiving vancomycin and cefepime for treatment of cellulitis vs. pulmonary infection. History of bladder cancer with mets, sacral ulcer s/p debridement 12/20. Blood cultures pending. Renal function stable. Day #1 of antimicrobial therapy. Plan Vancomycin * Current regimen: 1000 mg IV every 12 hours * Trough level obtained 01/21/25 resulted as 21.1 mcg/mL. This is supratherapeutic. * Decrease vancomycin dose to 750 mg IV every 12 hours. Predicted AUC at steady state: 481 mg/L.hr * Repeat trough level ordered for: 01/22/25 Cefepime * 2000 mg IV every 8 hours Pharmacy will continue to follow and will adjust dose/frequency as necessary. Thank you. Pharmacy has transitioned to AUC monitoring for vancomycin. AUC/DESTINEY is the preferred PK/PD target and is associated with decreased risk of nephrotoxicity compared to traditional trough targets.
--- NOTE | 2025-01-21 11:07 | Palliative Care Consultation ---
Date of Consultation January 21, 2025 Assessment & Plan (1) Palliative care by specialist: Met with pt at bedside, she was awake, alert and pleasantly communicative with somewhat halting/delayed speech. Patient does currently exhibit decisional capacity based on the ability to convey understanding of personal PMHx, current medical condition, treatment options nor the risks / benefits of those options, and lack of ability to make decisions based on such knowledge. Hospital does not have written documentation of patient wishes concerning her chosen proxy for medical decisions. Per PA [id number], in absence of written documentation of patient wishes, pt's proxy for medical decisions would be her spouse. Pt require a proxy for medical decisions. Introduced Palliative Medicine and explained our role in advanced care planning, symptom management and navigation through the progression of life limiting disease. Patient was receptive to palliative services for goals of care discussions. Reviewed we are different from hospice, a home health nurse visiting service. . (2) Counseling regarding advanced directives and goals of care: Pt expresses concern that she has not been able to properly explain her current medical situation to her and requests that I call her spouse to arrange a time for GOC meeting. (3) Quality of life palliative care encounter: Pt shared that she has been chronically fatigued with poor appetite and QUINTERO. She shared that she has not felt up to doing things that she enjoys and would like to discuss options for care if she does not have biopsy when her spouse is present. She shared concern that any cancer directed treatment would make her even sicker. Plan Plan in place for more comprehensive GOC discussion with pt and spouse on 01/22 at 0930 History of Present Illness Reason for Consultation: goals of care Requesting Physician: Susi Card MD Attending Physician: Susi Card MD History of Present Illness Minerva is a 74-year-old female with a past medical history of bilateral lower extremity venous stasis with ulcers, spina bifida with no sensation below the navel and wheelchair-bound at baseline, pressure ulcer unstageable of the sacrum present on admission, stress cardiomyopathy with normalized EF and without known ischemic coronary disease, recently diagnosed bladder cancer who presents to the ER with progressive cough/SOB/QUINTERO and poor appetite over 2 weeks. Per H&P note: Recent Dx of invasive high-grade carcinoma of the bladder. -CTA/P 08/2024: Anterior bladder wall thickening TURBT 12/20/24: Incomplete resection. Pathology showed poorly differentiated carcinoma with abundant necrosis consistent with invasive high-grade urothelial carcinoma. Last chest CT imaging 02/2024 did not show evidence of metastatic disease and no persistent airspace opacities Chest x-ray 01/19/2025 shows interval development of numerous rounded masslike opacities highly suggestive of metastatic disease. Small right pleural effusion. Right midlung and lower lung airspace opacity suspicious for locula obed effusion, pleural lesion, versus pneumonia. Cardiomegaly with mild pulmonary edema is noted CTpelvis: Increase in size of peripherally enhancing masslike focus on anterior bladder 7.2 x 3.5 cm consistent with urothelial neoplasm. Diffusely thickened enhancing bladder wall and urothelial thickening of the left ureter infectious or neoplastic is within differential. Mild left hydro. Interval development of multiple enlarged pelvic lymph nodes. Sacral decubitus ulcer with skin thickening and subcutaneous induration favoring cellulitis without abscess. Moderate amount of stool within the rectum. CTA pending due to dyspnea, shortness of breath, hypoxia, and tachypnea with underlying malignancy. DDx includes due to malignancy, PE, pneumonia. To brendan cterize urothelial carcinoma progression/changes and to visualize her sacral ulcer this been extended to a CTA/P with contrast. Allergies Allergy/AdvReac Type Severity Reaction Status Date / Time nalidixic acid Allergy Intermediate Rash Verified 01/03/25 13:03 Home Medications Medication Instructions Recorded Confirmed Type Oxygen Home #1 ea 05/21/21 01/03/25 Rx pantoprazole 40 mg tablet,delayed 40 mg PO DAILY 10/20/21 01/19/25 History release anastrozole 1 mg tablet (Arimidex) 1 mg PO QAM 10/23/22 01/19/25 History levothyroxine 50 mcg tablet 50 mcg PO UD 10/23/22 01/19/25 History atorvastatin 40 mg tablet 40 mg PO QAM 01/13/24 01/19/25 History sertraline 50 mg tablet (Zoloft) 50 mg PO QAM PRN Other 01/13/24 01/19/25 History aspirin 81 mg tablet,delayed 81 mg PO QAM #0 tabs 01/20/24 01/19/25 Rx release amlodipine 5 mg tablet (Norvasc) 2.5 mg (1/2 x 5 mg) PO QAM #30 tabs 02/24/24 01/19/25 Rx albuterol 90 mcg/actuation aerosol 90 mcg inhalation DAILY PRN 12/06/24 01/19/25 History inhaler Shortness Of Breath ammonium lactate 12 % topical cream 1 applic topical DAILY Skin 12/06/24 01/19/25 History Removal potassium chloride 10 mEq 10 meq PO QAM 12/06/24 01/19/25 History tablet,extended release collagenase clostridium histo. 250 1 applic topical DAILY #30 grams 01/03/25 01/19/25 Rx unit/gram topical ointment (Santyl) furosemide 40 mg tablet (Lasix) 40 mg PO UD 01/19/25 01/19/25 History Patient History Medical History Renal artery stenosis Mild/bilateral per cardio Unstageable pressure ulcer to the sacrum/lower back region - reason for upcoming debridement Multiple wounds Currently following [facility] - BLE Venous stasis ulcers to bilateral LEs- Poor historian Hypothermia 12/2023 - 01/2024 [facility] "Sometimes I get cold and get brought to the ER for a warming blanket to get me warmed up" as per patient Hiatal hernia Hx of deep venous thrombosis Pt unsure - EMR 09/2018 Hx of Clostridium difficile infection Pt unsure - EMR 09/2018 - pt denies any issues at this time Hx of breast cancer "Its been a couple years" no chemo/xrt/surgery - CCP Bladder mass Reason for procedure Hx of respiratory failure 12/2023 - [facility] IP History of non-ST elevation myocardial infarction (NSTEMI) pt denies - EMR 2015 - Dr Stover CHF (congestive heart failure) Pt Denies - Dr Stover EF 65-70% on 12/2023 ECHO Per cardio records - hx of Takotsubo CM- moderate to severe LV dysfunction 07/2016 that resolved in four days Anemia Hypothyroidism Cellulitis hx - Currently following [facility] for multiple wounds Osteomyelitis no osteomyelitis per 11/08/[address] Constipation Intermittent CAD (coronary artery disease) No Stents - Dr Stover No evidence of epicardial CAD per cardio records History of CVA (cerebrovascular accident) - 04/2021; Residual - Right Arm - No Neurologist Severe obstructive sleep apnea CPAP Chronic cough Intermittent- no current issues Meningitis spinal 1986 Lymphedema of both lower extremities Hypertension Spina bifida (06/21/13) Motorized Wheelchair/Get Lift Paraplegia Motorized Wheelchair/Get Lift Neurogenic bladder (06/21/13) Surgical History S/P debridement (12/20/24) Excisional Debridement Sacral Decubitus Ulcer [id number] down to subcutaneous tissue (Not Applicable) - Bharathi Moon DO Hx of colonoscopy Hx laparoscopic cholecystectomy Hx of esophagogastroduodenoscopy Hx of section x1 H/O bone graft Left Knee, Right Ankle, Right Upper Thigh - [place] Family History Father Hypertension Myocardial infarction Herniated disc Mother Myocardial infarction Colorectal cancer Uterine cancer Other Family history non-contributory Social History Smoking Status: Never smoker Second Hand Exposure: No; Do You Dip or Chew Tobacco: No; Hx Alcohol Use: No Hx Substance Use: No Preferred Language: Mongolian Communication Ability: Effective Visual Impairment: Limited Hearing Ability: Normal Fulfillment Associate Required: No Beliefs That Will Affect Care: None marital status: Current Living Situation: Spouse current occupational status: retired How many Children do You have: 2 Feels Safe at Home: Yes Diet: regular caffeine: Yes (tea) during the past year weight has: increased > 10 lbs Physical Activity Frequency: Does not Exercise Do you think of yourself as: straight/heterosexual Gender Identity: Female Assistive Devices: Mechanical Lift, Oxygen - at Night and Wheelchair Review of Systems Review of Systems: All systems reviewed & are unremarkable except as noted in HPI & below Physical Exam Constitutional: + obese; no acute distress Respiratory: normal respiratory effort Auscultation: + diminished lung sounds (bibasilar); no crackles and no wheezes Cardiovascular: Rate/Rhythm: regular rate and regular rhythm Heart Sounds: + murmur Extremities: + edema (lymphedema LEs bilat) Musculoskeletal: Extremities: + extremities abnormal to inspection (atrophied legs) Results & Data Vital Signs (Past 12 Hours) Vital Signs Temp Pulse Pulse Resp BP BP Pulse Ox 01/21/25 10:36 36.4 C L 87 18 153/74 H 92 01/21/25 08:20 36.5 C 88 17 110/72 96 01/21/25 07:47 79 01/21/25 07:40 01/21/25 03:14 36.7 C 72 16 132/75 94 01/21/25 00:00 78 01/20/25 23:25 36.9 C 90 17 112/69 95 O2 Del Method O2 Flow Rate 01/21/25 10:36 Nasal Cannula 2 01/21/25 08:20 Nasal Cannula 2 01/21/25 07:47 01/21/25 07:40 Nasal Cannula 2 01/21/25 03:14 Nasal Cannula 3 01/21/25 00:00 01/20/25 23:25 Room Air Laboratory Results Abnormal lab results 01/21/25 Range/Units 05:20 WBC 34.62 H* (4.8-10.8) K/ul RBC 3.50 L (4.20-5.40) M/uL Hgb 9.1 L (12.0-16.0) g/dl Hct 28.5 L (37.0-47.0) % MCHC 31.9 L (32.0-36.0) g/dL RDW Std Deviation 57.1 H (36.4-46.3) fL RDW Coeff of Deanna 19.7 H (11.5-14.5) % Neut # (Auto) 24.62 H (1.40-6.50) K/uL Buchanan # (Auto) 1.26 H (0.11-0.59) K/uL Eos # (Auto) 5.91 H (0.00-0.50) K/uL Immature Gran # (Auto) 1.10 H (0.01-0.20) K/uL Chloride 108 H (98-107) mmol/L Creatinine 0.47 L (0.6-1.2) mg/dl BUN/Creatinine Ratio 38.3 H (10-20) Random Vancomycin 21.1 H (10-20) mcg/ml Diagnostic Findings Chest X-Ray 01/19/25 10:22 XR chest 1V portable CLINICAL HISTORY: Sepsis. COMPARISON STUDY: Chest CT February 20, 2024. Chest radiograph February 18, 2024. FINDINGS: There is no pneumothorax. A small right pleural effusion is present. Numerous round mass-like opacities have developed since prior examination. There is interstitial thickening. Cardiomegaly is unchanged. Elevation of the left hemidiaphragm is unchanged. Opacity within the lateral right mid and lower lung is present. IMPRESSION: 1. Interval development of numerous round mass-like opacities within the lungs highly suggestive of metastatic disease. 2. Small right pleural effusion. Right mid and lower lung airspace opacity which could represent a loculated effusion, pleural lesions or pneumonia. 3. Cardiomegaly with mild pulmonary edema. ACT 112: Negative or not required by law. Electronically signed by: Kwabena Montalvo M.D. 01/19/2025 11:02 AM Abdomen/Pelvis CT 01/19/25 13:07 HISTORY: Bladder cancer progression. Sacral cellulitis. TECHNIQUE: Helical CT imaging of the abdomen pelvis was performed following uneventful administration 115 mL of Optiray IV contrast. Images are presented in axial, sagittal, and coronal reformats. COMPARISON: CTA of the chest from the same day. FINDINGS: Small pleural effusions. Innumerable bilateral pulmonary metastases. Cardiomegaly. Low-density lesion in the left hepatic lobe favoring a cyst. Liver is otherwise unremarkable. The gallbladder is surgically absent. The spleen, adrenal glands, and pancreas are unremarkable. Bilateral renal cortical hypodense lesions. The larger lesions consistent with cysts. The subcentimeter lesions are too small to accurately characterize. The stomach and duodenum are unremarkable. The small bowel loops are normal in caliber. The colon is normal in caliber. Malignant appearance of the urinary bladder with intraluminal mass and diffuse irregular wall thickening.. The uterus is unremarkable. No suspicious lymphadenopathy in the abdomen. There are enlarged malignant appearing lymph nodes along the left pelvic sidewall with central necrosis. Induration and soft tissue thickening is seen extending between the rectum and the infra sacralSkin surface concerning for cellulitis and possible fistula between the rectum and the skin surface. No drainable fluid collection is seen. There are no findings to suggest sacral osteomyelitis. 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 This mass appears to communicate with the central canal and measures 6.4 x 5.5 cm. IMPRESSION: 1. Findings consistent with metastatic bladder malignancy with malignant appearance of the urinary bladder with intraluminal mass and diffuse irregular wall thickening.There are centrally necrotic malignant appearing lymph nodes along the left pelvic sidewall. 2. Induration and soft tissue thickened extending between the posterior wall of the rectum and the infra sacral skin surface concerning for cellulitis and possible fistula. No drainable fluid collection or abscess. No findings of acute osteomyelitis. 3. 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 This is similar in appearance to the prior study and measures 6.4 x 5.5 cm. 4. Numerous additional chronic and/or incidental findings as above. Electronically signed by Ten Marshall 01-19-2025 5:05 PM Chest CTA 01/19/25 13:07 HISTORY: History of malignancy. Evaluation for PE. Dyspnea. TECHNIQUE: Helical CT angiography of the chest was performed following uneventful administration of 115 mL of Optiray 320 IV contrast. Images are presented in axial, sagittal, coronal reformats. Coronal and sagittal 3D MIP reconstructions are also provided. COMPARISON: Chest CT dated 02/20/2024 FINDINGS: There is no evidence of acute pulmonary embolism within the limitations of contrast timing and respiratory motion artifact. The thoracic aorta is normal in caliber. Tortuous thoracic aorta. Mild atherosclerotic vascular disease of the aorta and arch vessels. Mild cardiomegaly. Coronary artery calcifications are present. Thoracic esophagus is unremarkable. Innumerable bilateral pulmonary nodules and masses consistent with metastatic disease. The largest in the left upper lobe on axial image 51 measures 3.3 cm in diameter. Small pleural effusions. There is no pneumothorax. Severe scoliosis. Degenerative changes of the spine. The included upper abdomen is unremarkable. IMPRESSION: 1. No evidence of acute pulmonary embolism within the limitations of contrast timing and respiratory motion artifact. 2. Innumerable bilateral pulmonary metastases. 3. Small bilateral pleural effusionsmay be malignant. 4. Mild cardiomegaly. Coronary artery calcifications. Electronically signed by Ten Marshall 01-19-2025 4:56 PM Medications Administered Current Inpatient Medications Acetaminophen (Acetaminophen 325 Mg Tab) 650 mg PO Q4H PRN PRN Reason: Pain or Fever Stop: 02/18/25 17:22 Albuterol (Albuterol Hfa 8 Gm Inhaler) 1 puffs INH QIDR PRN PRN Reason: Shortness Of Breath Stop: 02/20/25 09:21 Anastrozole (Anastrozole 1 Mg Tab) 1 mg PO QAM [facility] Stop: 02/21/25 08:59 Aspirin (Aspirin 81 Mg Ectab) 81 mg PO [facility] Stop: 02/19/25 08:59 Last Admin: 01/21/25 08:37 Dose: Not Given Atorvastatin Calcium (Atorvastatin 40 Mg Tab) 40 mg PO [facility] Stop: 02/19/25 08:59 Last Admin: 01/21/25 08:37 Dose: 40 mg Cyanocobalamin (Cyanocobalamin (B-12) 500 Mcg Tablet) 1,000 mcg PO [facility] Stop: 02/20/25 09:44 Last Admin: 01/21/25 11:09 Dose: 1,000 mcg Enoxaparin Sodium (Enoxaparin Inj 40 Mg/0.4 Ml Syr) 40 mg SQ Q24H [facility] Stop: 02/18/25 19:59 Last Admin: 01/19/25 19:38 Dose: 40 mg Folic Acid (Folic Acid 1 Mg Tab) 1 mg PO [facility] Stop: 02/20/25 08:59 Last Admin: 01/21/25 11:09 Dose: 1 mg Cefepime HCl (Maxipime 2000mg) 2,000 mg in 20 mls @ 5 mls/min IV Q8H [facility]; Protocol Stop: 01/26/25 14:59 Last Admin: 01/21/25 23:34 Dose: 5 mls/min Vancomycin HCl 750 mg/ Sodium (Chloride) 265 mls @ 200 mls/hr IV Q12H [facility] Stop: 01/26/25 11:59 Last Admin: 01/21/25 23:35 Dose: 200 mls/hr Levothyroxine Sodium (Levothyroxine Sodium 50 Mcg Tablet) [facility]: 02/19/25 06:29 Last Admin: 01/21/25 06:24 Dose: 50 mcg Miscellaneous Information (Vancomycin Consult Active) 1 each N/A UD PRN PRN Reason: Consult Stop: 02/18/25 14:41 Ondansetron HCl (Ondansetron Inj 2 Mg/Ml 2 Ml Vial) 4 mg IV Q6H PRN PRN Reason: Nausea And Vomiting Stop: 02/19/25 21:08 Last Admin: 01/20/25 21:43 Dose: 4 mg Pantoprazole Sodium (Pantoprazole 40 Mg Tab) 40 mg PO DAILY [facility] Stop: 02/19/25 08:59 Last Admin: 01/21/25 08:37 Dose: 40 mg Potassium Chloride (Potassium Chloride 10 Meq Tabcr) 10 meq PO QAM [facility] Stop: 02/19/25 08:59 Last Admin: 01/21/25 08:37 Dose: 10 meq Sertraline HCl (Sertraline Hcl 50 Mg Tablet) 50 mg PO QAM [facility] Stop: 02/19/25 08:59 Last Admin: 01/21/25 08:37 Dose: 50 mg PG Care Time/CCT Total # of Minutes Spent Total Time Spent with Patient: Total time spent is greater than 50% in coordination of care (as documented) at patient's floor/unit and/or counseling patient: [place] [address] IN/OBS CONSULT LVL 2,35M Patient Type New Medical Decision Making Straight Forward Diagnoses Palliative care by specialist Z51.5 Counseling regarding advanced directives and goals of care Z71.89 Quality of life palliative care encounter Z51.5
[2025-01-21] MEDS: FOLIC ACID 1 MG TAB PO SCH (11:09)
[2025-01-21] MEDS: CYANOCOBALAMIN (B-12) 500 MCG TABLET PO SCH (11:09)
[2025-01-21] MEDS: VANCOMYCIN 750 MG in SODIUM CHLORIDE 0.9% 250 ML IV SCH (11:13)
--- NOTE | 2025-01-21 13:57 | Electrocardiogram Report ---
Test Reason : Blood Pressure : */* mmHG Vent. Rate : 96 BPM Atrial Rate : 96 BPM P-R Int : 116 ms QRS Dur : 78 ms QT Int : 342 ms P-R-T Axes : 46 47 84 degrees QTcB Int : 432 ms Normal sinus rhythm Normal ECG When compared with ECG of 18-Feb-2024 08:19, No significant change Confirmed by Jake Jaime ([id number]) on 01/21/2025 1:57:22 PM Referred By: REFERRED SELF Confirmed By: Jake Jaime
--- NOTE | 2025-01-21 14:49 | Electrocardiogram Report ---
Test Reason : Blood Pressure : */* mmHG Vent. Rate : 158 BPM Atrial Rate : 158 BPM P-R Int : 116 ms QRS Dur : 72 ms QT Int : 232 ms P-R-T Axes : 66 35 88 degrees QTcB Int : 376 ms Poor data quality, interpretation may be adversely affected Sinus tachycardia Nonspecific ST and T wave abnormality Abnormal ECG When compared with ECG of 19-Jan-2025 10:31, (unconfirmed) Vent. rate has increased by 62 bpm Confirmed by Jake Jaime ([id number]) on 01/21/2025 2:49:16 PM Referred By: REFERRED SELF Confirmed By: Jake Jaime
--- NOTE | 2025-01-21 16:12 | Hospitalist Progress Note ---
Date of Service January 21, 2025 Assessment & Plan (1) Lung mass: (2) Cellulitis: (3) Anemia: (4) Urothelial carcinoma of bladder: Plan This pt is a 74-year-old female with history of spina bifida, persistent chronic sacral wound, newly diagnosed bladder CA, GASTON, breast CA, lymphedema, HFpEF, DVT, CVA, HTN, hypothyroidism, depression, GERD, and anemia who presents with weakness and functional decline and SOB. Found to have acute respiratory failure with hypoxia and CTA CHest with multiple lung masses and nodules, small bilat pleural effusions. She was also thought to have a cellulitis surrounding her sacral decubitus ulcer #Acute on chronic Hypoxic respiratory failure/Lung nodules/masses Initially hypoxic and tachypneic.Uses 2.5L O2 hs at home. Transiently anticoagulated while pending CTA. CTA ruled out pulmonary embolism but showed multiple p ulmonary metastasis and concern for ?multifocal pneumonia continues on antibiotics. Biofire resp panel negative, Procal neg. PULM thinks highly likely these are pulm mets but could be septic emboli. Blood cxs remain no growth to date. PULM recommends CT guided lung bx by IR as high risk to undergo gen anesthesia for bronchoscopy/EBUS. Oncology consult appreciated-concern for treatment with frequent wound infections but need biopsy to see if urothelial vs breast CA -continue supplemental O2 and wean off as able -continue IV Cefepime and Vanco empirically for PNA -plan for CT guided biopsy once off ASA for 5 days-on 01/27 #Sepsis, cellulitis versus pneumonia with significant leukocytosis with eosinophilia and neutrophilia; with tachycardia, tachypnea, and hypotension on admission now resolved with volume resuscitation Concern for pneumonia versus chronic sacral decubitus ulcer associate with her spina bifida BioFire is negative. 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 Pathology showed poorly differentiated carcinoma. Was pending referral to tertiary care with cystectomy evaluation by urology.CTA/P 08/2024: Anterior bladder wall thickening Chest x-ray 01/19/2025 shows interval development of numerous rounded masslike opacities highly suggestive of metastatic disease. Small effusion with concern for pneumonia CTpelvis: Increase in size of peripherally enhancing masslike focus on anterior bladder 7.2 x 3.5 cm consistent with urothelial neoplasm. Diffusely thickened enhancing bladder wall and urothelial thickening of the left ureter infectious or neoplastic is within differential. Mild left hydro. Interval development of multiple enlarged pelvic lymph nodes. Sacral decubitus ulcer with skin thickening and subcutaneous induration favoring cellulitis without abscess. -f/u with Urology and Oncology after discharge -UA abnormal-follow urine cx and treating with abx -await lung biopsy # Acute anemia-hgb down to 6.9 from 8.5 on admission-may be hemodilutional on top of anemia from recent hematuria with bladder CA. No GIB. Patient transfused 1 unit PRBCs 01/21. Patient's iron studies did not have significant low iron, unclear if bone marrow involvement with malignancies, patient is folate slightly low oral supplementation as ordered -follow CBC #Sacral ulcer history of spina bifida, CT with concern for cellulitis with possible fistula On exam ulcer is without significant erythema and some scant discharge. S/p excisional debridement of sacral decubitus ulcer 12/20/2024 Cefepime/vancomycin continued #Bilateral lower extremity venous stasis ulcers Continue routine wound care. Aquacel Ag/abdominal pads daily. Nystatin powder to left posterior knee. Does not appear overtly infected, and would be covered with antibiotics orde red for evidence of sacral cellulitis regardless #History of Takotsubo cardiomyopathy/HTN/HLD- no heart failure, with improved ejection fraction on last ECHO -holding home amlodipine -hold ASA for lung biopsy -continue atorvastatin -holding home lasix #Bilateral renal artery stenosis-noted, avoid ACEi/ARB #Severe GASTON With nighttime oxygen dependence. -Continue CPAP with oxygen bleed at bedtime #Hypothyroidism-TSH 3.4 -continue home levothyroxine #Depression-no acute issues -continue sertraline #GERD-continue PPI #H/o breast CA-resume home anastrazole -biopsy of lung pending to see if met breast CA DVT proph-SQ Lovenox-will need to hold prior to lung bx Dispo-continued stay on tele, appreciate Palliative consult for goals of care discussion Admission and Anticipated Discharge Date Admission Date: January 19, 2025 Subjective Pt seems confused at times or just slow to respond to questions. She frequently looks to her to answer the questions or help her answer them. Denies pain. Says she wants to have the lung mass biopsy performed and agrees to that as well. Tele with NSR rates 80-90s Discussed her care with Interventional Radiology as well as with Heme/Onc Physical Exam Constitutional: + obese; no acute distress Respiratory: normal respiratory effort Auscultation: + diminished lung sounds (bibasilar); no crackles and no wheezes Cardiovascular: Rate/Rhythm: regular rate and regular rhythm Heart Sounds: + murmur Extremities: + edema (lymphedema LEs bilat) Musculoskeletal: Extremities: + extremities abnormal to inspection (atrophied legs) Results & Data Results & Data Vital Signs (Past 12 Hours) Vital Signs Temp Pulse Pulse Resp BP Pulse Ox O2 Del Method 01/21/25 14:57 98 H 01/21/25 10:36 36.4 C L 87 18 153/74 H 92 Nasal Cannula 01/21/25 08:20 36.5 C 88 17 110/72 96 Nasal Cannula 01/21/25 07:47 79 01/21/25 07:40 Nasal Cannula O2 Flow Rate 01/21/25 14:57 01/21/25 10:36 2 01/21/25 08:20 2 01/21/25 07:47 01/21/25 07:40 2 Laboratory Results CBC, BMP reviewed PG Care Time/CCT Total # of Minutes Spent Total Time Spent with Patient: Total time spent is greater than 50% in coordination of care (as documented) at patient's floor/unit and/or counseling patient: Coding Level of Care Code 74982 SUB INP/OBS CARE 3/50MIN Diagnoses Lung mass R91.8 Cellulitis L03.90 Site of cellulitis: unspecified site Anemia D64.9 Anemia type: unspecified type Urothelial carcinoma of bladder C67.9 (2) Cellulitis Site of cellulitis: unspecified site Qualified Code(s): L03.90 - Cellulitis, unspecified (3) Anemia Anemia type: unspecified type Qualified Code(s): D64.9 - Anemia, unspecified
[2025-01-22 07:26] LABS: Hematocrit (blood only) 25.8 % (37.0-47.0); Hemoglobin 8.2 g/dl (12.0-16.0); Mean Corpuscular Hgb Conc 31.8 g/dL (32.0-36.0); Mean Corpuscular Volume 81.9 fL (80.0-100.0); Mean Platelet Volume 10.8 fL (9.4-12.4); Nucleated RBC # (auto) 0.03 K/uL (0.00-0.12); Nucleated RBC % (auto) 0.1 %; Platelet Count 342 K/uL (130-400); RDW Standard Deviation 57.1 fL (36.4-46.3); Red Blood Count 3.15 M/uL (4.20-5.40); White Blood Count 29.56 K/ul (4.8-10.8)
[2025-01-22 07:32] LABS: Creatinine Clr Calc Pharmacy 123.7 ml/min; Potassium 3.6 mmol/L (3.5-5.1)
[2025-01-22 07:50] LABS: Basophils # (auto) 0.08 K/uL (0.00-0.20); Basophils % (auto) 0.3 %; Eosinophils # (auto) 4.82 K/uL (0.00-0.50); Eosinophils % (auto) 16.3 %; Immature Granulocytes # (auto) 0.94 K/uL (0.01-0.20); Immature Granulocytes % (auto) 3.2 %; Lymphocytes # (auto) 1.84 K/uL (1.20-3.40); Lymphocytes % (auto) 6.2 %; Monocytes # (auto) 1.14 K/uL (0.11-0.59); Monocytes % (auto) 3.9 %; Neutrophils # (auto) 20.74 K/uL (1.40-6.50); Neutrophils % (auto) 70.1 %; Polychromasia 1+; Toxic Vacuolation 2+
--- NOTE | 2025-01-22 08:46 | Palliative Family Discussion ---
Date of Service January 22, 2025 Patient Directed Conference Time of [id number] - [id number] Participants: Amor True AGACNP Patient participation: yes Patient Support System: spouse Other Healthcare Provider Participation: None Meeting Location: bedside Advanced Directive available: no If yes, descriptors: The patient's surrogate medical decision maker participated: yes, spouse present Legally authorized health care proxy: Pt does not currently require a proxy for medical decisions. Hospital does not have written documentation of patient wishes concerning his chosen proxy for medical decisions. Per PA [id number], in absence of written documentation of patient wishes, pt's proxy for medical decisions would be her spouse. Other surrogate: Pt has verbalized wishes for her spouse Thom Arreguin([phone]) to be her primary MDM proxy and secondary be her daughter Leann Glover ([phone]) in the event she lacks decisional capacity. A family meeting was held for JR ARREGUIN. This meeting was necessary for determining the appropriate course of treatment. Topics of Discussion Topics of Discussion: 1. intro to services 2. goals of care 3. advanced directive 4. code status Other Content of Meetin. Opportunity given for participants to speak and ask questions. 2. Participants were assured of attention to patient comfort. 3. Reassurance provided. 4. Support was provided for informed, good-joceline decisions. 5. Emotions expressed by family were acknowledged and addressed. 6. Follow-up Outpatient: TBD 7. Plan of Care: continue current level of care, ongoing GOC discussions after Biopsy result and treatment options are clear Met with pt and her spouse at bedside. Introduced Palliative Medicine and explained our role in advanced care planning, symptom management and navigation through the progression of life limiting disease. Patient and/or family were receptive to palliative services for goals of care discussions. Reviewed we are different from hospice, a home health nurse visiting service. Thom shared that they met at [facility] and have been for over 40 years. Together they have a daughter a son and three grand children. They shared awareness that pt is very sick, but remain hopeful. Discussed importance of identifying and documenting pt EOL wishes and GOC, as well as choosing HCPOA who knows pt, her wishes/values and is willing to communicate pt wishes in event pt lacks decisional capacity. Discussed improtance of documenting these decisions in form of advanced directive and supplied paperwork for pt to review. Melinda expressed awareness that she has a fairly aggressive malignancy in her bladder, lymph nodes and multiple lesions in her lungs. She shared hesitancy towards chemotherapy or radiation treatments, but agrees to biopsy to learn more about type of cancer, prognosis and treatment options. discussed that differential is most likely from her bladder although could include recurrent breast given her past history. Thom reports that they would like to try cancer directed treatments with hope for cure. Pt shared that she would like to have patho results and all treatment options explained to her prior to making any decisions. Discussed code status and helped pt and spouse understand that CPR is only done after a person has and involves uncomfortable and invasive procedures that, if successful. have high risk of multiple complications including but not limited to rib fractures, pneumo/hemothorax, HUYEN, ventilator dependence, anoxic brain injury, and intermediate school teacher/permanent cognitive and functional deficits. CPR survival: Only about 10% of patients who have [id number] sudden cardiac arrest survive to hospital discharge, with many survivors having neurologic impairment. This rate is even lower among patients with serious coexisting conditions, ie chance of survival to hospital discharge for in- hospital CPR in older people is low to moderate (15%) and decreases with age, comorbidities, performance status and frailty: for pts > 70 yo, more than half of the patients who initially survived resuscitation in the hospital before hospital discharge. The pooled survival to discharge after in-hospital CPR was 18% for patients between 70 and 79 years old, 15% for patients between 80 and 89 years old and 11% for patients of 90 years and older. (Isaac WOLFEY, Darian LJ, Liset F, et al. Trends in short- and long-term survival among [id number] cardiac arrest patients alive at hospital arrival. Circulation 2014;130:1883- 1890. AND Isbonita C, Sri T, Rasangelineh R, et al. Performance of clinical risk scores to predict mortality and neurological outcome in cardiac arrest patients. Resuscitation 2019;136:21-29.) Pt states that she would like to take time to consider all options and that she does not feel she can do that without biopsy results. no chances in level of care today. Time Involved in Meeting: I spent 65 minutes overall addressing this case: 10 in medical data review/discussion with referring provider(s) and/or preparation for the visit 40 in direct interaction with the patient and spouse 40 Advance Care Planning/Goals of Care discussions as detailed above in note (must be >16min) 10 in subsequent review and synthesis of assessment and plan 5 in communicating with other providers regarding the patient's case: Susi Card MD
[2025-01-22] MEDS: ANASTROZOLE 1 MG TAB PO SCH (09:21)
[2025-01-22] MEDS: VANCOMYCIN LEVEL ONE (11:56)
--- NOTE | 2025-01-22 12:17 | Pharmacy Report ---
Pharmacy PK ABX Note - Date of Service January 22, 2025 - Assessment and Plan Assessment 01/22: * Day #4 of Vancomycin and cefepime. No growth to date in any cultures. Renal fxn is stable. Still with significant leukocytosis, WBC 29.6k today. Remains afebrile. * Vanc trough today was therapeutic. No dose change needed. 01/21: * Day #3 of Vancomycin and Cefepime. No growth to date in any cultures. Renal fxn is stable. Leukocytosis worsening, WBC 35k today. Remains afebrile. * Vanc trough this morning was supratherapeutic with predicted AUC/DESTINEY > 600 mg/L.hr. Will decrease vancomycin dose today and delay administration until predicted level < 20 mcg/mL. 01/19: 74 year old F receiving vancomycin and cefepime for treatment of cellulitis vs. pulmonary infection. History of bladder cancer with mets, sacral ulcer s/p debridement 12/20. Blood cultures pending. Renal function stable. Day #1 of antimicrobial therapy. Plan Vancomycin * Current regimen: 750 mg IV every 12 hours * Trough level obtained 01/22/25 resulted as 17.4 mcg/mL. This is predicted to achieve target AUC/DESTINEY of 400-600 mg/L.hr * Predicted AUC at steady state: 475 mg/L.hr * Continue 750 mg IV every 12 hours * Repeat trough level ordered for: 01/25/25 Cefepime * 2000 mg IV every 8 hours Pharmacy will continue to follow and will adjust dose/frequency as necessary. Thank you. Pharmacy has transitioned to AUC monitoring for vancomycin. AUC/DESTINEY is the preferred PK/PD target and is associated with decreased risk of nephrotoxicity compared to traditional trough targets.
--- NOTE | 2025-01-22 15:40 | Hospitalist Progress Note ---
Date of Service January 22, 2025 Assessment & Plan (1) Lung mass: (2) Cellulitis: (3) Anemia: (4) Urothelial carcinoma of bladder: Plan This pt is a 74-year-old female with history of spina bifida, persistent chronic sacral wound, newly diagnosed bladder CA, GASTON, breast CA, lymphedema, HFpEF, DVT, CVA, HTN, hypothyroidism, depression, GERD, and anemia who presents with weakness and functional decline and SOB. Found to have acute respiratory failure with hypoxia and CTA CHest with multiple lung masses and nodules, small bilat pleural effusions. She was also thought to have a cellulitis surrounding her sacral decubitus ulcer and possible pneumonia. #Acute on chronic Hypoxic respiratory failure/Lung nodules/masses Initially hypoxic and tachypneic.remains on 2L NC continuously and uses 2.5L O2 hs at home. Transiently anticoagulated while pending CTA. CTA ruled out pulmonary embolism but showed multiple pulmonary metastasis and concern for ?multifocal pneumonia continues on antibiotics. Biofire resp panel negative, Procal neg. PULM thinks highly likely these are pulm mets but could be septic emboli. Blood cxs remain no growth to date. PULM recommends CT guided lung bx by IR as high risk to undergo gen anesthesia for bronchoscopy/EBUS. Oncology consult appreciated-concern for treatment with frequent wound infections but need biopsy to see if urothelial vs breast CA -continue supplemental O2 and wean off as able -continue IV Cefepime and Vanco empirically for PNA -plan for CT guided biopsy once off ASA for 5 days-on 01/27 #Sepsis, cellulitis versus pneumonia with significant leukocytosis to 34K with eosinophilia and neutrophilia; with tachycardia, tachypnea, and hypotension on admission now resolved with volume resuscitation Concern for pneumonia versus chronic sacral decubitus ulcer associate with her spina bifida BioFire is negative. Nasal MRSA swab negative however history of both Pseudomonas and MRSA within the last year Leukocytosis improving down to 29 but remains with eosinophilia and neutro philia. Peripheral smear cannot exclude myeloproliferative disease. Eosinophilia could be from allergic reaction although it has been present since October. 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 Pathology showed poorly differentiated carcinoma. Was pending referral to tertiary care with cystectomy evaluation by urology.CTA/P 08/2024: Anterior bladder wall thickening Chest x-ray 01/19/2025 shows interval development of numerous rounded masslike opacities highly suggestive of metastatic disease. Small effusion with concern for pneumonia CTpelvis: Increase in size of peripherally enhancing masslike focus on anterior bladder 7.2 x 3.5 cm consistent with urothelial neoplasm. Diffusely thickened enhancing bladder wall and urothelial thickening of the left ureter infectious or neoplastic is within differential. Mild left hydro. Interval development of multiple enlarged pelvic lymph nodes. Sacral decubitus ulcer with skin thickening and subcutaneous induration favoring cellulitis without abscess. -f/u with Urology and Oncology after discharge -UA abnormal-but urine culture negative -await lung biopsy next week # Acute anemia-hgb down to 6.9 from 8.5 on admission-may be hemodilutional on top of anemia from recent hematuria with bladder CA. No GIB. Patient transfused 1 unit PRBCs 01/21. Patient's iron studies did not have significant low iron, unclear if bone marrow involvement with malignancies, patient's folate slightly low. Hgb down again to 8.2 but no bleeding from anywhere except previously in the urine. -Continue folate oral supplementation -follow CBC -Monitor for recurrent hematuria #Sacral ulcer history of spina bifida, CT with concern for cellulitis with possible fistula On exam ulcer is without significant erythema and some scant discharge. S/p excisional debridement of sacral decubitus ulcer 12/20/2024 Cefepime/vancomycin continued #Bilateral lower extremity venous stasis ulcers Continue routine wound care. Aquacel Ag/abdominal pads daily. Nystatin powder to left posterior knee. Does not appear overtly infected, and would be covered with antibiotics ordered for evidence of sacral cellulitis regardless #History of Takotsubo cardiomyopathy/HTN/HLD- no heart failure, with improved ejection fraction on last ECHO -holding home amlodipine -hold ASA for lung biopsy -continue atorvastatin -holding home lasix #Bilateral renal artery stenosis-noted, avoid ACEi/ARB #Severe GASTON With nighttime oxygen dependence. -Continue CPAP with oxygen bleed at bedtime #Hypothyroidism-TSH 3.4 -continue home levothyroxine #Depression-no acute issues -continue sertraline #GERD-continue PPI #H/o breast CA-remote -Continue home anastrazole -biopsy of lung pending to see if met breast CA DVT proph-SQ Lovenox-will need to hold prior to lung bx Dispo-continued stay on tele, appreciate Palliative consult for goals of care discussion Admission and Anticipated Discharge Date Admission Date: January 19, 2025 Subjective Patient reports feeling a little bit better today. Unfortunately, she cannot have a lung biopsy until she is off of baby aspirin for 5 days as per my discussion with radiology PA. I discussed her care with the child support case officer as well as her on the phone. She denies pain anywhere. Telemetry with normal sinus rhythm and sinus tachycardia with PVCs and PA sees, rates 90s to 130s Physical Exam Constitutional: + obese; no acute distress Respiratory: normal respiratory effort Auscultation: + diminished lung sounds (bibasilar); no crackles and no wheezes Cardiovascular: Rate/Rhythm: regular rate and regular rhythm Heart Sounds: + murmur Extremities: + edema (lymphedema LEs bilat) Musculoskeletal: Extremities: + extremities abnormal to inspection (atrophied legs) Results & Data Results & Data Vital Signs (Past 12 Hours) Vital Signs Temp Pulse Pulse Resp BP Pulse Ox O2 Del Method 01/22/25 14:39 105 H 01/22/25 11:16 37.0 C 97 H 17 124/69 92 Nasal Cannula 01/22/25 08:16 36.7 C 89 17 110/65 94 Nasal Cannula 01/22/25 08:00 87 01/22/25 08:00 Nasal Cannula O2 Flow Rate 01/22/25 14:39 01/22/25 11:16 2 01/22/25 08:16 2 01/22/25 08:00 01/22/25 08:00 2 Laboratory Results CBC, BMP, vancomycin level reviewed PG Care Time/CCT Total # of Minutes Spent Total Time Spent with Patient: Total time spent is greater than 50% in coordination of care (as documented) at patient's floor/unit and/or counseling patient: Coding Level of Care Code 88321 SUB INP/OBS CARE 2/35MIN Diagnoses Lung mass R91.8 Cellulitis L03.90 Site of cellulitis: unspecified site Anemia D64.9 Anemia type: unspecified type Urothelial carcinoma of bladder C67.9 (2) Cellulitis Site of cellulitis: unspecified site Qualified Code(s): L03.90 - Cellulitis, unspecified (3) Anemia Anemia type: unspecified type Qualified Code(s): D64.9 - Anemia, unspecified
[2025-01-23 06:31] LABS: Hematocrit (blood only) 26.6 % (37.0-47.0); Hemoglobin 8.2 g/dl (12.0-16.0); Mean Corpuscular Hemoglobin 25.5 pg (25.0-34.0); Mean Corpuscular Hgb Conc 30.8 g/dL (32.0-36.0); Mean Corpuscular Volume 82.9 fL (80.0-100.0); Mean Platelet Volume 10.3 fL (9.4-12.4); Platelet Count 278 K/uL (130-400); RDW Coefficient of Variation 20.8 % (11.5-14.5); RDW Standard Deviation 59.3 fL (36.4-46.3); Red Blood Count 3.21 M/uL (4.20-5.40); White Blood Count 29.73 K/ul (4.8-10.8)
[2025-01-23 06:55] LABS: Albumin Globulin Ratio 0.7 (0.9-2); Albumin Level 2.3 gm/dl (3.4-5.0); BUN Creatinine Ratio 43.6 (10-20); Bilirubin,Total 0.6 mg/dl (0.2-1.0); Calcium 8.7 mg/dl (8.6-10.3); Creatinine Clr Calc Pharmacy 126.9 ml/min; Globulin 3.3 gm/dl (2.5-4.0); Magnesium 1.9 mg/dl (1.7-2.4); Potassium 3.6 mmol/L (3.5-5.1); Total Protein 5.6 gm/dl (6.0-8.3)
[2025-01-23 07:13] LABS: Basophils % (auto) 0.3 %; Echinocytes 1+; Eosinophils # (auto) 5.46 K/uL (0.00-0.50); Eosinophils % (auto) 18.4 %; Immature Granulocytes # (auto) 0.62 K/uL (0.01-0.20); Immature Granulocytes % (auto) 2.1 %; Lymphocytes % (auto) 6.7 %; Monocytes # (auto) 1.09 K/uL (0.11-0.59); Monocytes % (auto) 3.7 %; Neutrophils # (auto) 20.46 K/uL (1.40-6.50); Neutrophils % (auto) 68.8 %; Polychromasia 1+; Toxic Vacuolation 2+
[2025-01-23] MEDS: ACETAMINOPHEN 325 MG TAB PO PRN (10:49)
--- NOTE | 2025-01-23 16:44 | Hospitalist Progress Note ---
Date of Service January 23, 2025 Assessment & Plan (1) Lung mass: (2) Cellulitis: (3) Anemia: (4) Urothelial carcinoma of bladder: Plan This pt is a 74-year-old female with history of spina bifida, persistent chronic sacral wound, newly diagnosed bladder CA, GASTON, breast CA, lymphedema, HFpEF, DVT, CVA, HTN, hypothyroidism, depression, GERD, and anemia who presents with weakness and functional decline and SOB. Found to have acute respiratory failure with hypoxia and CTA CHest with multiple lung masses and nodules, small bilat pleural effusions. She was also thought to have a cellulitis surrounding her sacral decubitus ulcer and possible pneumonia. #Acute on chronic Hypoxic respiratory failure/Lung nodules/masses Initially hypoxic and tachypneic.she remains on 2L NC continuously and uses 2.5L O2 hs at home. CTA ruled out pulmonary embolism but showed multiple pulmonary metastasis and concern for ?multifocal pneumonia. Biofire resp panel negative, Procal neg. PULM thinks highly likely these are pulm mets but could be septic emboli. Blood cxs remain no growth to date. PULM recommends CT guided lung bx by IR as high risk to undergo gen anesthesia for bronchoscopy/EBUS. Oncology consult appreciated-given history of previously untreated breast cancer only on anastrozole and recent diagnosis of bladder cancer, need biopsy to see if urothelial vs breast CA -continue supplemental O2 and wean off as able -Switch IV Cefepime to Zosyn due to to confusion and continue Vanco empirically for PNA given history of MRSA -plan for CT guided biopsy once off ASA for 5 days-on 01/27-make n.p.o. at midnight on 01/26 and hold SQ Lovenox prior to biopsy #Sepsis, cellulitis versus pneumonia with significant leukocytosis to 34K with eosinophilia and neutrophilia; with tachycardia, tachypnea, and hypotension on admission now resolved with volume resuscitation Concern for pneumonia versus chronic sacral decubitus ulcer associate with her spina bifida BioFire is negative. Nasal MRSA swab negative however history of both Pseudomonas and MRSA within the last year Leukocytosis improving down to 29 and stable but remains with eosinophilia and neutrophilia. Peripheral smear cannot exclude myeloproliferative disease. Eosinophilia could be from allergic reaction although it has been present since October. Cellulitis is now resolved as per nursing on 01/23 -continue on vancomycin and switch to Zosyn for confusion -Discussed eosinophilia with hematology/oncology who is aware-I do not think she is at risk for parasitic infection and this has been ongoing since October so not likely an acute allergic reaction. -Hematology recommends bone marrow biopsy due to eosinophilia and leukocytosis as well as anemia and metastatic cancer-ordered for Tuesday along with CT-guided biopsy of the lung -follow CBC, BMP #Acute encephalopathy-slow to respond/answer questions, forgetful, oriented only x 2. Typically can carry on conversation. reports this started at home prior to admission but has gotten worse. 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 Pathology showed poorly differentiated carcinoma. Was pending referral to tertiary care with cystectomy evaluation by urology.CTA/P 08/2024: Anterior bladder wall thickening Chest x-ray 01/19/2025 shows interval development of numerous rounded masslike opacities highly suggestive of metastatic disease. Small effusion with concern for pneumonia CTpelvis: Increase in size of peripherally enhancing masslike focus on anterior bladder 7.2 x 3.5 cm consistent with urothelial neoplasm. Diffusely thickened enhancing bladder wall and urothelial thickening of the left ureter infectious or neoplastic is within differential. Mild left hydro. Interval development of multiple enlarged pelvic lymph nodes. Sacral decubitus ulcer with skin thickening and subcutaneous induration favoring cellulitis without abscess. -f/u with Urology and Oncology after discharge -UA abnormal-but urine culture negative -await lung biopsy next week # Acute anemia-hgb down to 6.9 from 8.5 on admission-may be hemodilutional on top of anemia from recent hematuria with bladder CA. No GIB. Patient transfused 1 unit PRBCs 01/21. Patient's iron studies did not have significant low iron, unclear if bone marrow involvement with malignancies, patient's folate slightly low. Hgb down again to 8.2 and stable but no bleeding from anywhere except previously in the urine. -Continue folate oral supplementation -follow CBC -Monitor for recurrent hematuria -Plan for bone marrow biopsy on Tuesday #Sacral ulcer history of spina bifida, CT with concern for cellulitis with possible fistula On exam ulcer is without significant erythema and some scant discharge.Now resolved She is s/p excisional debridement of sacral decubitus ulcer 12/20/2024 with general surgery Zosyn/vancomycin continued-finish out 7-day course #Bilateral lower extremity venous stasis ulcers Continue routine wound care. Aquacel Ag/abdominal pads daily. Nystatin powder to left posterior knee. Does not appear overtly infected, and would be covered with antibiotics ordered for evidence of sacral cellulitis regardless #History of Takotsubo cardiomyopathy/HTN/HLD- no heart failure, with improved ejection fraction on last ECHO. Blood pressures are controlled -holding home amlodipine -hold ASA for lung biopsy -continue atorvastatin -holding home lasix #Bilateral renal artery stenosis-noted, avoid ACEi/ARB #Severe GASTON With nighttime oxygen dependence. -Continue CPAP with oxygen bleed at bedtime #Hypothyroidism-TSH 3.4 -continue home levothyroxine #Depression-no acute issues -continue sertraline #GERD-continue PPI #H/o breast CA-remote -Continue home anastrazole -biopsy of lung pending to see if met breast CA DVT proph-SQ Lovenox-will need to hold prior to lung bx Dispo-continued stay on medical/surgical unit, awaiting biopsy on Tuesday, then home from there,, appreciate Palliative consult for goals of care discussion Admission and Anticipated Discharge Date Admission Date: January 19, 2025 Subjective Patient remains slow to respond to questions. Has been points out that she was getting a little confused prior to admission but it has gotten worse over the last few days here. She typically can carry on a normal conversation as per . She denies headache or new weakness. She does complain of some nausea and states that she vomited once earlier when her friends were visiting but the nurse was unaware of this. I discussed her care with oncology who recommends bone marrow biopsy in addition to lung biopsy. Patient has been are agreeable to this. Physical Exam Constitutional: + obese; no acute distress Respiratory: normal respiratory effort Auscultation: + diminished lung sounds (bibasilar); no crackles and no wheezes Cardiovascular: Rate/Rhythm: regular rate and regular rhythm Heart Sounds: + murmur Extremities: + edema (lymphedema LEs bilat) Musculoskeletal: Extremities: + extremities abnormal to inspection (atrophied legs) Psychiatric: Orientation: alert, oriented to person, oriented to place and cooperative; + not oriented to time Results & Data Results & Data Vital Signs (Past 12 Hours) Vital Signs Temp Pulse Pulse Resp BP Pulse Ox O2 Del Method 01/23/25 15:12 36.5 C 87 18 118/64 92 Nasal Cannula 01/23/25 11:40 36.5 C 86 18 111/64 93 Nasal Cannula 01/23/25 08:20 36.5 C 84 19 122/71 94 Nasal Cannula 01/23/25 08:10 Nasal Cannula O2 Flow Rate 01/23/25 15:12 2 01/23/25 11:40 2.5 01/23/25 08:20 2.5 01/23/25 08:10 2.5 Laboratory Results CBC, BMP, magnesium reviewed PG Care Time/CCT Total # of Minutes Spent Total Time Spent with Patient: Total time spent is greater than 50% in coordination of care (as documented) at patient's floor/unit and/or counseling patient: Coding Level of Care Code 78480 SUB INP/OBS CARE 3/50MIN Diagnoses Lung mass R91.8 Cellulitis L03.90 Site of cellulitis: unspecified site Anemia D64.9 Anemia type: unspecified type Urothelial carcinoma of bladder C67.9 (2) Cellulitis Site of cellulitis: unspecified site Qualified Code(s): L03.90 - Cellulitis, unspecified (3) Anemia Anemia type: unspecified type Qualified Code(s): D64.9 - Anemia, unspecified
[2025-01-23] MEDS: PIPERACILLIN/TAZOBACTAM 4.5 GM/100 ML BAG IV ONE (18:14)
[2025-01-23] MEDS: GADOBUTROL 65ML VIAL IV ONE (19:08)
--- NOTE | 2025-01-23 19:55 | Magnetic Resonance Report ---
Clinical History: Confusion. History of breast and bladder cancer Technique: Multiple T1 and T2-weighted magnetic resonance images were obtained of the brain both before and after the administration of 9 cc of Gadavist intravenous gadolinium contrast Comparison is made to the CT dated 01/12/2024 Findings: There is a 6 mm focus of restricted diffusion and mild increased T2 signal intensity within the anterosuperior margin of the right cerebellar hemisphere medially. There is a suspected 7 mm focus of restricted diffusion involving the left parietal lobe cortex. There is a suspected 4 mm focus of restricted diffusion involving the medial cortex of the right parietal lobe. These are concerning for acute infarcts. There is an old left parietal lobe infarct. There is cerebral atrophy, within expected limits for the patient's age. There are areas of increased T2 signal intensity within the periventricular white matter, most likely due to chronic small vessel ischemic disease. No mass lesion or other area of abnormal enhancement is identified. There is no intracranial hemorrhage or other fluid collection. No midline shift or other form of herniation is seen. There is unchanged hydrocephalus with prominent dilatation of the lateral ventricles and mild dilatation of the third ventricle. This could be due to aquaductal stenosis. The cerebellar tonsils are mildly low-lying, without overt Chiari malformation. There is apparent mild diffuse calvarial thickening. No definite focal osseous lesion is identified. The pituitary gland appears normal. Normal flow-voids are seen within the arteries of the [id number]. The orbits and paranasal sinuses appear normal. The mastoid air cells appear clear Impression: 1. Three small acute infarcts, involving the bilateral parietal lobes and the right cerebellum. These measure up to 7 mm in size. No larger infarct is seen 2. Unchanged hydrocephalus with prominent dilatation of the lateral ventricles. No clear obstructing lesion is identified. This could be due to aqueductal stenosis or normal pressure hydrocephalus 3. Cerebral atrophy and chronic small vessel ischemic disease 4. Old left parietal lobe infarct 5. No definite sign of metastatic disease Electronically signed by Kb Reina 01-23-2025 7:55 PM
--- NOTE | 2025-01-23 23:04 | Palliative Care Progress Note ---
Date of Service January 23, 2025 Assessment & Plan (1) Palliative care by specialist: Plan: Palliative care following for goals of care discussion (2) Counseling regarding goals of care: Plan: Met again with pt and her spouse at bedside. revisited previous conversations about GOC and code status. Pt/spousehad no further questions. Reinforced code status and that CPR is only done after a person has and involves uncomfortable and invasive procedures that, if successful. have high risk of multiple complications including but not limited to rib fractures, pneumo/hemothorax, HUYEN, ventilator dependence, anoxic brain injury, and usp/permanent cognitive and functional deficits. Both pt and spouse reiterated desire for full code, with plan to obtain biopsy here on Tuesday and [place] [facility] [place]. No changes in level of care. Plan We will sign off on this patient as goals of care are clearly established to continue all life prolonging therapies Thank you for including Palliative Care in the management of this patient. Please call with any questions or concerns regarding this consu ltation. Admission and Anticipated Discharge Date Admission Date: January 19, 2025 Subjective Met with patient and spouse at bedside.Ronnie. Pt is awake and alert and pleasantly communicative. She denies any discomfort and shared plan for biopsy is now Tuesday due needed time off anticoagulant. Review of Systems Review of Systems: All systems reviewed & are unremarkable except as noted in Subjective Physical Exam Constitutional: + obese; no acute distress Respiratory: normal respiratory effort Auscultation: + diminished lung sounds (bibasilar); no crackles and no wheezes Cardiovascular: Rate/Rhythm: regular rate and regular rhythm Heart Sounds: + murmur Extremities: + edema (lymphedema LEs bilat) Musculoskeletal: Extremities: + extremities abnormal to inspection (atrophied legs) Results & Data Vital Signs (Past 12 Hours) Vital Signs Temp Pulse Resp BP Pulse Ox O2 Del Method O2 Flow Rate 01/23/25 11:40 36.5 C 86 18 111/64 93 Nasal Cannula 2.5 01/23/25 08:20 36.5 C 84 19 122/71 94 Nasal Cannula 2.5 01/23/25 08:10 Nasal Cannula 2.5 Laboratory Results Abnormal lab results 01/23/25 Range/Units 06:10 WBC 29.73 H (4.8-10.8) K/ul RBC 3.21 L (4.20-5.40) M/uL Hgb 8.2 L (12.0-16.0) g/dl Hct 26.6 L (37.0-47.0) % MCHC 30.8 L (32.0-36.0) g/dL RDW Std Deviation 59.3 H (36.4-46.3) fL RDW Coeff of Deanna 20.8 H (11.5-14.5) % Neut # (Auto) 20.46 H (1.40-6.50) K/uL Blount # (Auto) 1.09 H (0.11-0.59) K/uL Eos # (Auto) 5.46 H (0.00-0.50) K/uL Immature Gran # (Auto) 0.62 H (0.01-0.20) K/uL Chloride 113 H (98-107) mmol/L Creatinine 0.39 L (0.6-1.2) mg/dl BUN/Creatinine Ratio 43.6 H (10-20) Total Protein 5.6 L (6.0-8.3) gm/dl Albumin 2.3 L (3.4-5.0) gm/dl Albumin/Globulin Ratio 0.7 L (0.9-2) Diagnostic Findings Chest X-Ray 01/19/25 10:22 XR chest 1V portable CLINICAL HISTORY: Sepsis. COMPARISON STUDY: Chest CT February 20, 2024. Chest radiograph February 18, 2024. FINDINGS: There is no pneumothorax. A small right pleural effusion is present. Numerous round mass-like opacities have developed since prior examination. There is interstitial thickening. Cardiomegaly is unchanged. Elevation of the left hemidiaphragm is unchanged. Opacity within the lateral right mid and lower lung is present. IMPRESSION: 1. Interval development of numerous round mass-like opacities within the lungs highly suggestive of metastatic disease. 2. Small right pleural effusion. Right mid and lower lung airspace opacity which could represent a loculated effusion, pleural lesions or pneumonia. 3. Cardiomegaly with mild pulmonary edema. ACT 112: Negative or not required by law. Electronically signed by: Kwabena Montalvo M.D. 01/19/2025 11:02 AM Abdomen/Pelvis CT 01/19/25 13:07 HISTORY: Bladder cancer progression. Sacral cellulitis. TECHNIQUE: Helical CT imaging of the abdomen pelvis was performed following uneventful administration 115 mL of Optiray IV contrast. Images are presented in axial, sagittal, and coronal reformats. COMPARISON: CTA of the chest from the same day. FINDINGS: Small pleural effusions. Innumerable bilateral pulmonary metastases. Cardiomegaly. Low-density lesion in the left hepatic lobe favoring a cyst. Liver is otherwise unremarkable. The gallbladder is surgically absent. The spleen, adrenal glands, and pancreas are unremarkable. Bilateral renal cortical hypodense lesions. The larger lesions consistent with cysts. The subcentimeter lesions are too small to accurately characterize. The stomach and duodenum are unremarkable. The small bowel loops are normal in caliber. The colon is normal in caliber. Malignant appearance of the urinary bladder with intraluminal mass and diffuse irregular wall thickening.. The uterus is unremarkable. No suspicious lymphadenopathy in the abdomen. There are enlarged malignant appearing lymph nodes along the left pelvic sidewall with central necrosis. Induration and soft tissue thickening is seen extending between the rectum and the infra sacralSkin surface concerning for cellulitis and possible fistula between the rectum and the skin surface. No drainable fluid collection is seen. There are no findings to suggest sacral osteomyelitis. 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 This mass appears to communicate with the central canal and measures 6.4 x 5.5 cm. IMPRESSION: 1. Findings consistent with metastatic bladder malignancy with malignant appearance of the urinary bladder with intraluminal mass and diffuse irregular wall thickening.There are centrally necrotic malignant appearing lymph nodes along the left pelvic sidewall. 2. Induration and soft tissue thickened extending between the posterior wall of the rectum and the infra sacral skin surface concerning for cellulitis and possible fistula. No drainable fluid collection or abscess. No findings of acute osteomyelitis. 3. 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 This is similar in appearance to the prior study and measures 6.4 x 5.5 cm. 4. Numerous additional chronic and/or incidental findings as above. Electronically signed by Ten Marshall 01-19-2025 5:05 PM Chest CTA 01/19/25 13:07 HISTORY: History of malignancy. Evaluation for PE. Dyspnea. TECHNIQUE: Helical CT angiography of the chest was performed following uneventful administration of 115 mL of Optiray 320 IV contrast. Images are presented in axial, sagittal, coronal reformats. Coronal and sagittal 3D MIP reconstructions are also provided. COMPARISON: Chest CT dated 02/20/2024 FINDINGS: There is no evidence of acute pulmonary embolism within the limitations of contrast timing and respiratory motion artifact. The thoracic aorta is normal in caliber. Tortuous thoracic aorta. Mild atherosclerotic vascular disease of the aorta and arch vessels. Mild cardiomegaly. Coronary artery calcifications are present. Thoracic esophagus is unremarkable. Innumerable bilateral pulmonary nodules and masses consistent with metastatic disease. The largest in the left upper lobe on axial image 51 measures 3.3 cm in diameter. Small pleural effusions. There is no pneumothorax. Severe scoliosis. Degenerative changes of the spine. The included upper abdomen is unremarkable. IMPRESSION: 1. No evidence of acute pulmonary embolism within the limitations of contrast timing and respiratory motion artifact. 2. Innumerable bilateral pulmonary metastases. 3. Small bilateral pleural effusionsmay be malignant. 4. Mild cardiomegaly. Coronary artery calcifications. Electronically signed by Ten Marshall 01-19-2025 4:56 PM Brain MRI 01/23/25 17:02 Clinical History: Confusion. History of breast and bladder cancer Technique: Multiple T1 and T2-weighted magnetic resonance images were obtained of the brain both before and after the administration of 9 cc of Gadavist intravenous gadolinium contrast Comparison is made to the CT dated 01/12/2024 Findings: There is a 6 mm focus of restricted diffusion and mild increased T2 signal intensity within the anterosuperior margin of the right cerebellar hemisphere medially. There is a suspected 7 mm focus of restricted diffusion involving the left parietal lobe cortex. There is a suspected 4 mm focus of restricted diffusion involving the medial cortex of the right parietal lobe. These are concerning for acute infarcts. There is an old left parietal lobe infarct. There is cerebral atrophy, within expected limits for the patient's age. There are areas of increased T2 signal intensity within the periventricular white matter, most likely due to chronic small vessel ischemic disease. No mass lesion or other area of abnormal enhancement is identified. There is no intracranial hemorrhage or other fluid collection. No midline shift or other form of herniation is seen. There is unchanged hydrocephalus with prominent dilatation of the lateral ventricles and mild dilatation of the third ventricle. This could be due to aquaductal stenosis. The cerebellar tonsils are mildly low-lying, without overt Chiari malformation. There is apparent mild diffuse calvarial thickening. No definite focal osseous lesion is identified. The pituitary gland appears normal. Normal flow-voids are seen within the arteries of the [id number]. The orbits and paranasal sinuses appear normal. The mastoid air cells appear clear Impression: 1. Three small acute infarcts, involving the bilateral parietal lobes and the right cerebellum. These measure up to 7 mm in size. No larger infarct is seen 2. Unchanged hydrocephalus with prominent dilatation of the lateral ventricles. No clear obstructing lesion is identified. This could be due to aqueductal stenosis or normal pressure hydrocephalus 3. Cerebral atrophy and chronic small vessel ischemic disease 4. Old left parietal lobe infarct 5. No definite sign of metastatic disease Electronically signed by Kb Reina 01-23-2025 7:55 PM Medications Administered Current Inpatient Medications Acetaminophen (Acetaminophen 325 Mg Tab) 650 mg PO Q4H PRN PRN Reason: Pain or Fever Stop: 02/18/25 17:22 Last Admin: 01/23/25 10:49 Dose: 650 mg Albuterol (Albuterol Hfa 8 Gm Inhaler) 1 puffs INH QIDR PRN PRN Reason: Shortness Of Breath Stop: 02/20/25 09:21 Anastrozole (Anastrozole 1 Mg Tab) 1 mg PO [facility] Stop: 02/21/25 08:59 Last Admin: 01/23/25 08:56 Dose: 1 mg Atorvastatin Calcium ([facility]atin 40 Mg Tab) [facility] [place]: 02/19/25 08:59 Last Admin: 01/23/25 08:57 Dose: 40 mg Cyanocobalamin (Cyanocobalamin (B-12) 500 Mcg Tablet) 1,000 [facility]cg [facility] [place]: 02/20/25 09:44 Last Admin: 01/23/25 08:57 Dose: 1,000 mcg Enoxaparin Sodium (Enoxaparin Inj 40 Mg/0.4 Ml Syr) 40 mg SQ Q24H [facility] Stop: 02/18/25 19:59 Last Admin: 01/23/25 21:18 Dose: 40 mg Folic Acid (Folic Acid 1 Mg Tab) [facility] [place]: 02/20/25 08:59 Last Admin: 01/23/25 08:57 Dose: 1 mg Vancomycin HCl 750 mg/ Sodium (Chloride) 265 mls @ 200 mls/hr IV Q12H [facility] Stop: 01/26/25 11:59 Last Infusion: 01/23/25 13:15 Dose: Infused Piperacillin Sod/Tazobactam Sod (Zosyn) 4.5 gm in 100 mls @ 25 mls/hr IV Q8H [facility]; Protocol Stop: 01/28/25 23:14 Levothyroxine Sodium (Levothyroxine Sodium 50 Mcg Tablet) 50 mcg PO DAILYBB [facility] Stop: 02/19/25 06:29 Last Admin: 01/23/25 06:30 Dose: 50 mcg Miscellaneous Information (Vancomycin Consult Active) 1 each N/A UD PRN PRN Reason: Consult Stop: 02/18/25 14:41 Ondansetron HCl (Ondansetron Inj 2 Mg/Ml 2 Ml Vial) 4 mg IV Q6H PRN PRN Reason: Nausea And Vomiting Stop: 02/19/25 21:08 Last Admin: 01/23/25 16:14 Dose: 4 mg Pantoprazole Sodium (Pantoprazole 40 Mg Tab) 40 mg PO DAILY [facility] Stop: 02/19/25 08:59 Last Admin: 01/23/25 08:56 Dose: 40 mg Potassium Chloride (Potassium Chloride 10 Meq Tabcr) 10 meq PO QAM [facility] Stop: 02/19/25 08:59 Last Admin: 01/23/25 08:58 Dose: 10 meq Sertraline HCl (Sertraline Hcl 50 Mg Tablet) 50 mg PO QAM [facility] Stop: 02/19/25 08:59 Last Admin: 01/23/25 08:57 Dose: 50 mg PG Care Time/CCT Total # of Minutes Spent Total Time Spent with Patient: Total time spent is greater than 50% in coordination of care (as documented) at patient's floor/unit and/or counseling patient: Coding [place] [address] SUB INP/OBS CARE 12/15MIN Patient Type Established History Problem Focused Exam Problem Focused Medical Decision Making Straight Forward Diagnoses Palliative care by specialist Z51.5 Counseling regarding goals of care Z71.89
[2025-01-23] MEDS: PIPERACILLIN/TAZOBACTAM 4.5 GM/100 ML BAG IV SCH (23:58)
[2025-01-24 06:08] LABS: BUN Creatinine Ratio 45.5 (10-20); Calcium 8.8 mg/dl (8.6-10.3); Creatinine Clr Calc Pharmacy 112.5 ml/min; Potassium 3.5 mmol/L (3.5-5.1)
[2025-01-24 06:47] LABS: Hematocrit (blood only) 25.9 % (37.0-47.0); Hemoglobin 8.1 g/dl (12.0-16.0); Mean Corpuscular Hemoglobin 26.3 pg (25.0-34.0); Mean Corpuscular Hgb Conc 31.3 g/dL (32.0-36.0); Mean Corpuscular Volume 84.1 fL (80.0-100.0); Mean Platelet Volume 10.7 fL (9.4-12.4); Nucleated RBC # (auto) 0.02 K/uL (0.00-0.12); Nucleated RBC % (auto) 0.1 %; Platelet Count 301 K/uL (130-400); RDW Coefficient of Variation 21.5 % (11.5-14.5); RDW Standard Deviation 61.9 fL (36.4-46.3); Red Blood Count 3.08 M/uL (4.20-5.40); White Blood Count 32.06 K/ul (4.8-10.8)
[2025-01-24 07:39] LABS: ALC (manual) 2.56 K/uL (1.2-3.4); ANC (manual) 24.69 K/uL (1.4-6.5); Anisocytosis Present; Eosinophils # (manual) 3.85 K/uL (0-0.50); Eosinophils % (manual) 12 %; Lymphocytes # (manual) 2.56 K/uL (1.2-3.4); Lymphocytes % (manual) 8 %; Monocytes # (manual) 0.96 K/uL (0.11-0.59); Monocytes % (manual) 3 %; Neutrophils # (manual) 24.69 K/uL (1.40-6.50); Neutrophils % (manual) 77 %; Poikilocytosis Present; Polychromasia 1+
--- NOTE | 2025-01-24 11:00 | Hospitalist Progress Note ---
Date of Service January 24, 2025 Assessment & Plan (1) Lung mass: (2) Acute CVA (cerebrovascular accident): (3) Anemia: (4) Urothelial carcinoma of bladder: (5) Cellulitis: Plan This pt is a 74-year-old female with history of spina bifida, persistent chronic sacral wound, newly diagnosed bladder CA, GASTON, breast CA, lymphedema, HFpEF, DVT, CVA, HTN, hypothyroidism, depression, GERD, and anemia who presents with weakness and functional decline and SOB. Found to have acute respiratory failure with hypoxia and CTA CHest with multiple lung masses and nodules, small bilat pleural effusions. She was also thought to have a cellulitis surrounding her sacral decubitus ulcer and possible pneumonia. #Acute on chronic Hypoxic respiratory failure/Lung nodules/masses/possible pneumonia Initially hypoxic and tachypneic-she remains on 2L NC continuously (uses 2.5L O2 hs at home). CTA ruled out pulmonary embolism but showed multiple pulmonary metastasis and concern for ?multifocal pneumonia. Biofire resp panel negative, Procal neg. PULM thinks highly likely these are pulm mets but could be septic emboli. Blood cxs remain no growth to date. PULM recommends CT guided lung bx by IR as high risk to undergo gen anesthesia for bronchoscopy/EBUS. Oncology consult appreciated-given history of previously untreated breast cancer only on anastrozole (never received mastectomy or chemotherapy or radiation) and with recent diagnosis of bladder cancer, need biopsy to see if urothelial vs breast CA -continue supplemental O2 and wean off as able -Continue Zosyn and Vanco empirically for PNA given history of MRSA -plan for CT guided biopsy once off ASA for 5 days-on 01/27-make n.p.o. at midnight on 01/26 and hold SQ Lovenox prior to biopsy # Possible sepsis/cellulitis/Pressure ulcer of right buttock, stage 3, POA/pneumonia/leukocytosis with persistent significant leukocytosis to 34K with eosinophilia and neutrophilia; with tachycardia, tachypnea, and hypotension on admission now resolved with volume resuscitation Concern for pneumonia versus chronic sacral decubitus ulcer associate with her spina bifida BioFire is negative. Nasal MRSA swab negative however history of both Pseudomonas and MRSA within the last year. With eosinophilia, peripheral smear cannot exclude myeloproliferative disease. Eosinophilia could be from allergic reaction although it has been present since October. Cellulitis is now resolved as per nursing on 01/23. -continue on vancomycin and Zosyn for pneumonia and cellulitis-finish 7-day course on evening of 01/25 -Discussed eosinophilia with hematology/oncology who is aware-I do not think she is at risk for parasitic infection and this has been ongoing since October so not likely an acute allergic reaction. -Hematology recommends bone marrow biopsy due to eosinophilia and leukocytosis as well as anemia and metastatic cancer-ordered for Tuesday along with CT-guided biopsy of the lung -follow CBC, BMP #Acute ischemic CVA-was noted to be slow to respond/answer questions since admission. Was evident since before admission as per but not addressed until reported it worsening on 01/23. Initially thought to have encephalopathy from infection/anemia, etc. Typically can carry on conversation. Cefpeime was stopped and switched to Zosyn in case causing encephalopathy. Brain MRI evening of 01/23 did confirm multiple likely embolic ischemic CVAs, but no brain metastases. She does have a previous h/o CVA and also chronic hydrocephalus (had ventricular shunt externally as a child) -transfer to [facility] for arrhythmia monitoring-suspect occult Afib although had none on tele for first 3 days of hospitalization and none on previous 30 day event monitor in 2020 with last CVA (declined loop recorder at that time) -check CTA head/neck although normal in 12/2023 -checked ECHO with bubble for thrombus and PFO-negative except for some mild RV dilation and increased right-sided pressures -consult Neuro appreciated-I discussed with neuro-he does not think this is outside industrial 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 of embolic stroke, however I still think she should have 30-day event monitor after discharge to look for occult atrial fibrillation -I think it could be considered to treat with empiric Eliquis, HOWEVER, with ongoing anemia, hematuria from bladder CA, and need to be off blood thinners until after has lung and bone marrow biopsies on 01/27, HOLD off on anticoagulation at this time -continue statin, check lipid panel in the morning -Continue neurochecks, speech therapy consulted -Holding home aspirin for biopsy #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 Pathology showed poorly differentiated carcinoma. Was pending referral to tertiary care with cystectomy evaluation by urology.CTA/P 08/2024: Anterior bladder wall thickening Chest x-ray 01/19/2025 shows interval development of numerous rounded masslike opacities highly suggestive of metastatic disease. Small effusion with concern for pneumonia CTpelvis: Increase in size of peripherally enhancing masslike focus on anterior bladder 7.2 x 3.5 cm consistent with urothelial neoplasm. Diffusely thickened enhancing bladder wall and urothelial thickening of the left ureter infectious or neoplastic is within differential. Mild left hydro. Interval development of multiple enlarged pelvic lymph nodes. Sacral decubitus ulcer with skin thickening and subcutaneous induration favoring cellulitis without abscess. -f/u with Urology and Oncology after discharge -UA abnormal-but urine culture negative -await lung biopsy next week # Acute anemia-hgb down to 6.9 from 8.5 on admission-may be hemodilutional on top of anemia from recent hematuria with bladder CA. No GIB. Patient transfused 1 unit PRBCs 01/21. Patient's iron studies did not have significant low iron, unclear if bone marrow involvement with malignancies, patient's folate slightly low. Hgb now stable at 8.1-no bleeding from anywhere except previously in the urine. -Continue folate oral supplementation -Holding home aspirin -follow CBC -Monitor for recurrent hematuria -Plan for bone marrow biopsy on Tuesday #Pressure ulcer of right buttock, stage 3, POA/spina bifida/chronic hydrocephalus-, CT with concern for cellulitis with possible fistula On exam ulcer is without significant erythema and some scant discharge.Now resolved. She is s/p excisional debridement of sacral decubitus ulcer 12/20/2024 with general surgery Zosyn/vancomycin continued-finish out 7-day course on 01/25 #Bilateral lower extremity venous stasis ulcers Continue routine wound care. Aquacel Ag/abdominal pads daily. Nystatin powder to left posterior knee. Does not appear overtly infected, and would be covered with antibiotics ordered for evidence of sacral cellulitis regardless #History of Takotsubo cardiomyopathy/HTN/HLD- no heart failure, with improved ejection fraction on last ECHO. Blood pressures are controlled -holding home amlodipine -hold ASA for lung biopsy -continue atorvastatin -holding home lasix #Bilateral renal artery stenosis-noted, avoid ACEi/ARB #Severe GASTON With nighttime oxygen dependence. -Continue CPAP with oxygen bleed at bedtime #Hypothyroidism-TSH 3.4 -continue home levothyroxine #Depression-no acute issues -continue sertraline #GERD-continue PPI #H/o breast CA-remote -Continue home anastrazole -biopsy of lung pending to see if met breast CA DVT proph-SQ Lovenox-will need to hold prior to lung bx on Tuesday Dispo-continued stay on medical/surgical unit, awaiting biopsy on Tuesday, then home from there,, appreciate Palliative consult for goals of care discussion Admission and Anticipated Discharge Date Admission Date: January 19, 2025 Subjective Patient continues to have difficulty with expressive aphasia. We reviewed the results of the MRI of the brain showing strokes. I did discuss her care with neurology who does not feel the strokes are embolic. Of note, the radiology report addendum for her brain MRI states that I was contacted to be informed of the critical finding and the report and stated that I declined to speak with the interpreting radiologist. I want to attest that at no time was I ever contacted about the critical result of this brain MRI, nor did I declined to speak anyone about the results. I was unaware of the results until I returned to my shift on the morning of 01/25 Physical Exam Constitutional: + obese; no acute distress Respiratory: normal respiratory effort Auscultation: + diminished lung sounds (bibasilar); no crackles and no wheezes Cardiovascular: Rate/Rhythm: regular rate and regular rhythm Heart Sounds: + murmur Extremities: + edema (lymphedema LEs bilat) Musculoskeletal: Extremities: + extremities abnormal to inspection (atrophied legs) Neurologic: Speech / Cognition: + expressive aphasia Psychiatric: Orientation: alert, oriented to person, oriented to place and cooperative; + not oriented to time Results & Data Results & Data Vital Signs (Past 12 Hours) Vital Signs Temp Pulse Resp BP Pulse Ox O2 Del Method O2 Flow Rate 01/24/25 07:00 36.4 C L 75 16 108/63 97 Nasal Cannula 3 Laboratory Results CBC, BMP reviewed PG Care Time/CCT Total # of Minutes Spent Total Time Spent with Patient: Total time spent is greater than 50% in coordination of care (as documented) at patient's floor/unit and/or counseling patient: Coding Level of Care Code 53098 SUB INP/OBS CARE 3/50MIN Diagnoses Lung mass R91.8 Acute CVA (cerebrovascular accident) I63.9 Anemia D64.9 Anemia type: unspecified type Urothelial carcinoma of bladder C67.9 Cellulitis L03.90 Site of cellulitis: unspecified site (3) Anemia Anemia type: unspecified type Qualified Code(s): D64.9 - Anemia, unspecified (5) Cellulitis Site of cellulitis: unspecified site Qualified Code(s): L03.90 - Cellulitis, unspecified
--- NOTE | 2025-01-24 11:24 | Neurology Consultation ---
Date of Consultation January 24, 2025 Assessment & Plan (1) Ischemic stroke: History of Present Illness Attending Physician: Susi Card MD History of Present Illness S: pt currently awake and not encephalopathic. mri brain noted for small ischemic stroke b/l parietal and rt cerebellum, no bleed. they are punctate small lesions and appears subacute in nature. pt recently had CTA head/neck, negative. pt with ongoing multiple complex medical issues including cancers and sepsis and UTI/respiratory failure with hypoxia etc. Admission HPI/Hospitalist note: This pt is a 74-year-old female with history of spina bifida, persistent chronic sacral wound, newly diagnosed bladder CA, GASTON, breast CA, lymphedema, HFpEF, DVT, CVA, HTN, hypothyroidism, depression, GERD, and anemia who presents with weakness and functional decline and SOB. Found to have acute respiratory failure with hypoxia and CTA CHest with multiple lung masses and nodules, small bilat pleural effusions. She was also thought to have a cellulitis surrounding her sacral decubitus ulcer and possible pneumonia. #Acute on chronic Hypoxic respiratory failure/Lung nodules/masses Initially hypoxic and tachypneic.she remains on 2L NC continuously and uses 2.5L O2 hs at home. CTA ruled out pulmonary embolism but showed multiple pulmonary metastasis and concern for ?multifocal pneumonia. Biofire resp panel negative, Procal neg. PULM thinks highly likely these are pulm mets but could be septic emboli. Blood cxs remain no growth to date. PULM recommends CT guided lung bx by IR as high risk to undergo gen anesthesia for bronchoscopy/EBUS. Oncology consult appreciated-given history of previously untreated breast cancer only on anastrozole and recent diagnosis of bladder cancer, need biopsy to see if urothelial vs breast CA -continue supplemental O2 and wean off as able -Switch IV Cefepime to Zosyn due to to confusion and continue Vanco empirically for PNA given history of MRSA -plan for CT guided biopsy once off ASA for 5 days-on 01/27-make n.p.o. at midnight on 01/26 and hold SQ Lovenox prior to biopsy #Sepsis, cellulitis versus pneumonia with significant leukocytosis to 34K with eosinophilia and neutrophilia; with tachycardia, tachypnea, and hypotension on admission now resolved with volume resuscitation Concern for pneumonia versus chronic sacral decubitus ulcer associate with her spina bifida BioFire is negative. Nasal MRSA swab negative however history of both Pseudomonas and MRSA within the last year Leukocytosis improving down to 29 and stable but remains with eosinophilia and neutrophilia. Peripheral smear cannot exclude myeloproliferative disease. Eosinophilia could be from allergic reaction although it has been present since October. Cellulitis is now resolved as per nursing on 01/23 -continue on vancomycin and switch to Zosyn for confusion -Discussed eosinophilia with hematology/oncology who is aware-I do not think she is at risk for parasitic infection and this has been ongoing since October so not likely an acute allergic reaction. -Hematology recommends bone marrow biopsy due to eosinophilia and leukocytosis as well as anemia and metastatic cancer-ordered for Tuesday along with CT-guided biopsy of the lung -follow CBC, BMP #Acute ischemic CVA-slow to respond/answer questions, forgetful, oriented only x 2, with expressive aphasia. Was evident since before admission as per but not addressed until reported it worsening on 01/23. Initially though to have encephalopathy from infection/anemia, etc. Typically can carry on conversation. Cefpeime was stopped and switched to Zosyn in case causing encephalopathy. Brain MRI evening of 01/23 did confirm multiple likely embolic ischemic CVAs, but no brain metasteses. She does have a previous h/o CVA and also chronic hydrocephalus (had ventricular shunt externally as a child) -transfer to [facility] for arrhythmia monitoring-suspect occult Afib although had none on tele for first 3 days of hospitalization and none on previous 30 day event monitor in 2020 with last CVA (declined loop recorder at that time) -check CTA head/neck although normal in 12/2023 -check ECHO with bubble for thrombus nad PFO -consult Neuro -I think she probably should be treated with empiric Eliquis, HOWEVER, with ongoing anemia, hematuria frombladder CA, and need to be off blood thinners until after has lung and bone marrow biopsies on 01/27, HOLD off on anticoagulation at this time -continue statin Allergies Allergy/AdvReac Type Severity Reaction Status Date / Time nalidixic acid Allergy Intermediate Rash Verified 01/03/25 13:03 Home Medications Medication Instructions Recorded Confirmed Type Oxygen Home #1 ea 05/21/21 01/03/25 Rx pantoprazole 40 mg tablet,delayed 40 mg PO DAILY 10/20/21 01/19/25 History release anastrozole 1 mg tablet (Arimidex) 1 mg PO QAM 10/23/22 01/19/25 History levothyroxine 50 mcg tablet 50 mcg PO UD 10/23/22 01/19/25 History atorvastatin 40 mg tablet 40 mg PO QAM 01/13/24 01/19/25 History sertraline 50 mg tablet (Zoloft) 50 mg PO QAM PRN Other 01/13/24 01/19/25 History aspirin 81 mg tablet,delayed 81 mg PO QAM #0 tabs 01/20/24 01/19/25 Rx release amlodipine 5 mg tablet (Norvasc) 2.5 mg (1/2 x 5 mg) PO QAM #30 tabs 02/24/24 01/19/25 Rx albuterol 90 mcg/actuation aerosol 90 mcg inhalation DAILY PRN 12/06/24 01/19/25 History inhaler Shortness Of Breath ammonium lactate 12 % topical cream 1 applic topical DAILY Skin 12/06/24 01/19/25 History Removal potassium chloride 10 mEq 10 meq PO QAM 12/06/24 01/19/25 History tablet,extended release collagenase clostridium histo. 250 1 applic topical DAILY #30 grams 01/03/25 01/19/25 Rx unit/gram topical ointment (Santyl) furosemide 40 mg tablet (Lasix) 40 mg PO UD 01/19/25 01/19/25 History Patient History Medical History Renal artery stenosis Mild/bilateral per cardio Unstageable pressure ulcer to the sacrum/lower back region - reason for upcoming debridement Multiple wounds Currently following [facility] - BLE Venous stasis ulcers to bilateral LEs- Poor historian Hypothermia 12/2023 - 01/2024 [facility] "Sometimes I get cold and get brought to the ER for a warming blanket to get me warmed up" as per patient Hiatal hernia Hx of deep venous thrombosis Pt unsure - EMR 09/2018 Hx of Clostridium difficile infection Pt unsure - EMR 09/2018 - pt denies any issues at this time Hx of breast cancer "Its been a couple years" no chemo/xrt/surgery - CCP Bladder mass Reason for procedure Hx of respiratory failure 12/2023 - [facility] IP History of non-ST elevation myocardial infarction (NSTEMI) pt denies - EMR 2015 - Dr Stover CHF (congestive heart failure) Pt Denies - Dr Stover EF 65-70% on 12/2023 ECHO Per cardio records - hx of Takotsubo CM- moderate to severe LV dysfunction 07/2016 that resolved in four days Anemia Hypothyroidism Cellulitis hx - Currently following [facility] for multiple wounds Osteomyelitis no osteomyelitis per 11/08/[address] Constipation Intermittent CAD (coronary artery disease) No Stents - Dr Stover No evidence of epicardial CAD per cardio records History of CVA (cerebrovascular accident) - 04/2021; Residual - Right Arm - No Neurologist Severe obstructive sleep apnea CPAP Chronic cough Intermittent- no current issues Meningitis spinal 1986 Lymphedema of both lower extremities Hypertension Spina bifida (06/21/13) Motorized Wheelchair/Get Lift Paraplegia Motorized Wheelchair/Get Lift Neurogenic bladder (06/21/13) Surgical History S/P debridement (12/20/24) Excisional Debridement Sacral Decubitus Ulcer [id number] down to subcutaneous tissue (Not Applicable) - Bharathi Moon DO Hx of colonoscopy Hx laparoscopic cholecystectomy Hx of esophagogastroduodenoscopy Hx of section x1 H/O bone graft Left Knee, Right Ankle, Right Upper Thigh - [place] Family History Father Hypertension Myocardial infarction Herniated disc Mother Myocardial infarction Colorectal cancer Uterine cancer Other Family history non-contributory Social History Smoking Status: Never smoker Second Hand Exposure: No; Do You Dip or Chew Tobacco: No; Hx Alcohol Use: No Hx Substance Use: No Preferred Language: Ukrainian Communication Ability: Effective Visual Impairment: Limited Hearing Ability: Normal Extra Hand Required: No Beliefs That Will Affect Care: None marital status: Current Living Situation: Spouse current occupational status: retired How many Children do You have: 2 Feels Safe at Home: Yes Diet: regular caffeine: Yes (tea) during the past year weight has: increased > 10 lbs Physical Activity Frequency: Does not Exercise Do you think of yourself as: straight/heterosexual Gender Identity: Female Assistive Devices: Mechanical Lift, Oxygen - at Night and Wheelchair Review of Systems Review of Systems: All systems reviewed & are unremarkable except as noted in Subjective Constitutional: as per Subjective / HPI Eyes: as per Subjective / HPI Ear, Nose, Mouth, Throat: as per Subjective / HPI Respiratory: as per Subjective / HPI Cardiovascular: as per Subjective / HPI Gastrointestinal: as per Subjective / HPI Musculoskeletal: as per Subjective / HPI Integumentary: as per Subjective / HPI Neurologic: as per Subjective / HPI Psychiatric: as per Subjective / HPI Endocrine: as per Subjective / HPI Hematologic / Lymphatic: as per Subjective / HPI Allergy / Immunological: as per Subjective / HPI Exam (Neuro) Physical Exam: HEENT: normocephalic, resting comfortable.y Neuro: Mental: Alert, follows simple command well. some difficulty speaking due to SOB and respiratory issues. able to make few words. ,, no apraxia, no L/R confusion, no neglect CN: PERRL, Full EOM, symmetric face, Motor: No abnormal movements, diffuse weakness t/o , missing b/l lower limbs below the knee with severe edema/skin breakdown. Coord: intact b/l upper limbs. Impression: 74 yo female with subacute appearing small punctate ischemic stroke b/l parietal and rt cerebellum in setting of ongoing sepsis/UTI/pneumonia, respiratory failure with hypoxia. Pt is not encephalopathic. she has some confusion but alert and follows command well. Her confusion is not from the stroke, it is too small and location shouldn't cause her mental status change. Pt likely having confusion/mentation change from her ongoing medical issues, specially with sepsis/infection and respiratory hypoxia. Recommendations: 1. ok to continue ASA 81mg daily. 3. Images: no further image or work up n eeded at this point from stroke stand point. pt recently had work up already. 4. Permissive Hypertension for next 24 h rs. 6. Long-term SBP goal less than 130. Avoid hypovolemia and hypotension. continue DVT prevention therapy. 9. Avoid hypoglycemia, serum glucose goa l during hospitalization: 140-180. 10. Long-term HgA1c goal less than 7. 11. Start statin if not on it and no abs olute contraindication, long-term LDL goal less than 70. 12. Head of bed up 30 degrees if possibl e. 13. Stroke education by nursing and appr opriate staff. 14. Telemetry monitoring. 15. Fall precaution and aspiration preca ution. 16. Consult physical and occupational th erapy and speech path evaluation. Not much to add or offer at this point neurology as the stroke appears subacute in nature and not the cause for her confusion. call again if new question. will sign off. Chart reviewed I have spent more than 50% educating patient about potential diagnosis and neurological evaluation and coordinating care with patient's treatment team. Total time spent (including chart review and coordination of care): 60 min (this includes chart review). Results & Data Vital Signs (Past 12 Hours) Vital Signs Temp Pulse Resp BP Pulse Ox O2 Del Method O2 Flow Rate 01/24/25 07:00 36.4 C L 75 16 108/63 97 Nasal Cannula 3 PG Care Time/CCT Total # of Minutes Spent Total Time Spent with Patient: Total time spent is greater than 50% in coordination of care (as documented) at patient's floor/unit and/or counseling patient: Coding Level of Care Code 12576 IN/OBS CONSULT LVL 4,60M Diagnoses Ischemic stroke I63.9
--- NOTE | 2025-01-24 13:20 | XCELERA ---
[id number]
[2025-01-24] MEDS ORDERED: PHARMACIST DISCHARGE MED REC CONSULT PRN (13:39)
--- NOTE | 2025-01-24 15:40 | Electrocardiogram Report ---
Test Reason : Blood Pressure : */* mmHG Vent. Rate : 91 BPM Atrial Rate : 91 BPM P-R Int : 122 ms QRS Dur : 86 ms QT Int : 334 ms P-R-T Axes : 48 57 102 degrees QTcB Int : 410 ms Normal sinus rhythm Diffuse Minor Nonspecific T wave abnormality Abnormal ECG When compared with ECG of 19-Jan-2025 14:18, Vent. rate has decreased by [address] no longer depressed in Lateral leads Confirmed by Awais Lorenz ([id number]) on 01/24/2025 3:40:02 PM Referred By: REFERRED SELF Confirmed By: Awais Lorenz
[2025-01-24] MEDS: OPTIRAY 320 125ml IV ONE (21:59)
[2025-01-25] MEDS: OPTIRAY 320 125ml IV ONE (00:30)
--- NOTE | 2025-01-25 01:40 | CT Scan Report ---
EXAM: CT angio neck with con CLINICAL HISTORY: acute CVA TECHNIQUE: Contrast enhanced thin slice CT angiography scan of the carotid vessels was performed with intravenous contrast. Angiographic images were processed, 3D MIP images were acquired for interpretation.Contiguous axial images were obtained. Reformatted coronal and sagittal images were also reviewed. If IV contrast material had not been administered, the likelihood of detecting abnormalities relevant to the patients condition would have been substantially decreased. CT scan was performed according to ALARA (as low as reasonable achievable). COMPARISON: jan 14 FINDINGS: Atherosclerotic calcifications are noted involving bilateral carotid bulbs causes 20%-25% luminal narrowing right side and 10%-15% luminal narrowing on left side. Included great vessels of the aortic arch are grossly unremarkable. Common carotid artery internal carotid artery , and origin of the external carotid artery are well opacified. Vertebral arteries are well opacified. Jugular veins are well opacified. Thyroid gland appears unremarkable. Multifocal large confluent nodular infiltrates are noted involving visualized bilateral lungs. Mild bilateral pleural effusion. IMPRESSION: 1. Multifocal large confluent nodular infiltrates are noted involving visualized bilateral lungs. Mild bilateral pleural effusion.- new finding. 2. Atherosclerotic calcifications are noted involving bilateral carotid bulbs causes 20%-25% luminal narrowing right side and 10%-15% luminal narrowing on left side. Electronically signed by Atul Lowe 01-25-2025 01:39 AM
--- NOTE | 2025-01-25 01:52 | CT Scan Report ---
EXAM: CT angio head w con CLINICAL HISTORY: acute CVA TECHNIQUE: Contrast enhanced thin slice CT angiography scan of the cerebral vessels was performed with intravenous contrast. Angiographic images were processed, 3D MIP images were acquired for interpretation. Contiguous axial images were obtained. Reformatted coronal and sagittal images were also reviewed. If IV contrast material had not been administered, the likelihood of detecting abnormalities relevant to the patients condition would have been substantially decreased. CT scan was performed according to ALARA (as low as reasonable achievable). COMPARISON: Jan 14. FINDINGS: Atherosclerotic calcifications are noted involving cavernous, clinoid and supraclinoid segments of bilateral internal carotid arteries causing its mild luminal narrowing. Rest of Bilateral internal carotid arteries show normal course, calibre and opacification in the canalicular and cavernous part. Their division into the anterior cerebral artery and middle cerebral artery is defined. A1, A2 and M1, M2 segments are normal on both the sides. Bilateral vertebral arteries are seen to unite the form the basilar artery in a normal fashion. Basilar artery shows normal course, caliber and opacification. Its division into the posterior cerebral arteries is defined. Bilateral P1 and P2 segments are normal. Visualized venous structures show normal opacification. No evidence of intracranial aneurysm or AV malformation is seen. IMPRESSION: 1. Atherosclerotic calcifications are noted involving cavernous, clinoid and supraclinoid segments of bilateral internal carotid arteries causing its mild luminal narrowing.-stable. 2. No obvious thrombosis seen. Electronically signed by Atul Lowe 01-25-2025 01:52 AM
[2025-01-25 06:36] LABS: Calcium 8.5 mg/dl (8.6-10.3); Chol HDL Ratio 2.9 (0-5); Creatinine Clr Calc Pharmacy 99.4 ml/min; Potassium 3.4 mmol/L (3.5-5.1)
[2025-01-25 07:08] LABS: Hematocrit (blood only) 26.6 % (37.0-47.0); Hemoglobin 8.2 g/dl (12.0-16.0); Mean Corpuscular Hgb Conc 30.8 g/dL (32.0-36.0); Mean Corpuscular Volume 84.4 fL (80.0-100.0); Nucleated RBC # (auto) 0.05 K/uL (0.00-0.12); Nucleated RBC % (auto) 0.2 %; Platelet Count 294 K/uL (130-400); RDW Coefficient of Variation 22.2 % (11.5-14.5); RDW Standard Deviation 62.7 fL (36.4-46.3); Red Blood Count 3.15 M/uL (4.20-5.40); White Blood Count 30.72 K/ul (4.8-10.8)
[2025-01-25 07:17] LABS: Estimated Average Glucose 123 mg/dl; Hemoglobin A1C 5.9 % (4.5-5.6)
[2025-01-25 07:19] LABS: Anisocytosis Present; Basophils # (auto) 0.15 K/uL (0.00-0.20); Basophils % (auto) 0.5 %; Eosinophils # (auto) 5.88 K/uL (0.00-0.50); Eosinophils % (auto) 19.1 %; Immature Granulocytes % (auto) 3.9 %; Lymphocytes # (auto) 2.58 K/uL (1.20-3.40); Lymphocytes % (auto) 8.4 %; Monocytes # (auto) 1.13 K/uL (0.11-0.59); Monocytes % (auto) 3.7 %; Neutrophils # (auto) 19.78 K/uL (1.40-6.50); Neutrophils % (auto) 64.4 %; Poikilocytosis Present; Polychromasia 1+; Tear Drop Cells 1+; Toxic Vacuolation 1+
--- NOTE | 2025-01-25 10:36 | Hospitalist Progress Note ---
Date of Service January 25, 2025 Assessment & Plan (1) Lung mass: Plan: Initially hypoxic and tachypneic-she remains on 2L NC continuously (uses 2.5L O2 hs at home). CTA ruled out pulmonary embolism but showed multiple pulmonary metastasis and concern for ?multifocal pneumonia. Biofire resp panel negative, Procal neg. PULM thinks highly likely these are pulm mets but could be septic emboli. Blood cxs remain no growth to date. PULM recommends CT guided lung bx by IR as high risk to undergo gen anesthesia for bronchoscopy/EBUS. Oncology consult appreciated-given history of previously untreated breast cancer only on anastrozole (never received mastectomy or chemotherapy or radiation) and with recent diagnosis of bladder cancer, need biopsy to see if urothelial vs breast CA -continue supplemental O2 and wean off as able -Continue Zosyn and Vanco empirically for PNA given history of MRSA -plan for CT guided biopsy once off ASA for 5 days-on 01/27-make n.p.o. at midnight on 01/26 and hold SQ Lovenox prior to biopsy (2) Acute CVA (cerebrovascular accident): Plan: as noted to be slow to respond/answer questions since admission. Was evident since before admission as per but not addressed until reported it worsening on 01/23. Initially thought to have encephalopathy from infection/anemia, etc. Typically can carry on conversation. Cefpeime was stopped and switched to Zosyn in case causing encephalopathy. Brain MRI evening of 01/23 did confirm multiple likely embolic ischemic CVAs, but no brain metastases. She does have a previous h/o CVA and also chronic hydrocephalus (had ventricular shunt externally as a child) -transfer to [facility] for arrhythmia monitoring-suspect occult Afib although had none on tele for first 3 days of hospitalization and none on previous 30 day event monitor in 2020 with last CVA (declined loop recorder at that time) -check CTA head/neck although normal in 12/2023 -checked ECHO with bubble for thrombus and PFO-negative except for some mild RV dilation and increased right-sided pressures -consult Neuro appreciated-I discussed with neuro-he does not think this is territory account representative of embolic stroke, however I still think she should have 30-day event monitor after discharge to look for occult atrial fibrillation -I think it could be considered to treat with empiric Eliquis, HOWEVER, with ongoing anemia, hematuria from bladder CA, and need to be off blood thinners until after has lung and bone marrow biopsies on 01/27, HOLD off on anticoagulation at this time -continue statin, check lipid panel in the morning -Continue neurochecks, speech therapy consulted -Holding home aspirin for biopsy (3) Anemia: Plan: hgb down to 8.2 from 8.5 on admission-may be hemodilutional on top of anemia from recent hematuria with bladder CA. No GIB. Patient transfused 1 unit PRBCs 01/21. Patient's iron studies did not have significant low iron, unclear if bone marrow involvement with malignancies, patient's folate slightly low. Hgb now stable at 8.1-no bleeding from anywhere except previously in the urine. -Continue folate oral supplementation -Holding home aspirin -follow CBC -Monitor for recurrent hematuria -Plan for bone marrow biopsy on Tuesday (4) Urothelial carcinoma of bladder: Plan: Cystoscopy 12/20/2024 TURBT 12/20/24: Incomplete resection. Pathology showed poorly differentiated carcinoma. Was pending referral to tertiary care with cystectomy evaluation by urology.CTA/P 08/2024: Anterior bladder wall thickening Chest x-ray 01/19/2025 shows interval development of numerous rounded masslike opacities highly suggestive of metastatic disease. Small effusion with concern for pneumonia CTpelvis: Increase in size of peripherally enhancing masslike focus on anterior bladder 7.2 x 3.5 cm consistent with urothelial neoplasm. Diffusely thickened enhancing bladder wall and urothelial thickening of the left ureter infectious or neoplastic is within differential. Mild left hydro. Interval development of multiple enlarged pelvic lymph nodes. Sacral decubitus ulcer with skin thickening and subcutaneous induration favoring cellulitis without abscess. -f/u with Urology and Oncology after discharge -UA abnormal-but urine culture negative -await lung biopsy next week (5) Cellulitis: Plan: with persistent significant leukocytosis to 34K with eosinophilia and neutrophilia; with tachycardia, tachypnea, and hypotension on admission now resolved with volume resuscitation Concern for pneumonia versus chronic sacral decubitus ulcer associate with her spina bifida BioFire is negative. Nasal MRSA swab negative however history of both Pseudomonas and MRSA within the last year. With eosinophilia, peripheral smear cannot exclude myeloproliferative disease. Eosinophilia could be from allergic reaction although it has been present since October. Cellulitis is now resolved as per nursing on 01/23. -continue on vancomycin and Zosyn for pneumonia and cellulitis-finish 7-day course on evening of 01/25 -Discussed eosinophilia with hematology/oncology who is aware-I do not think she is at risk for parasitic infection and this has been ongoing since October so not likely an acute allergic reaction. -Hematology recommends bone marrow biopsy due to eosinophilia and leukocytosis as well as anemia and metastatic cancer-ordered for Tuesday along with CT-guided biopsy of the lung -follow CBC, BMP Plan This pt is a 74-year-old female with history of spina bifida, persistent chronic sacral wound, newly diagnosed bladder CA, GASTON, breast CA, lymphedema, HFpEF, DVT, CVA, HTN, hypothyroidism, depression, GERD, and anemia who presents with weakness and functional decline and SOB. Found to have acute respiratory failure with hypoxia and CTA CHest with multiple lung masses and nodules, small bilat pleural effusions. She was also thought to have a cellulitis surrounding her sacral decubitus ulcer and possible pneumonia. DVT proph-SQ Lovenox-will need to hold prior to lung bx on Tuesday Dispo-continued stay on medical/surgical unit, awaiting biopsy on Tuesday, then home from there,, appreciate Palliative consult for goals of care discussion Admission and Anticipated Discharge Date Admission Date: January 19, 2025 Subjective No events overnight. Pt resting in bed. Review of Systems Review of Systems: CONST: Negative for fever, body aches and chills. HENT: Negative for neck pain/stiffness, headache, congestion, sore throat, swelling. EYES: Negative for discharge/pain or vision changes. RESP: Negative for cough/hemoptysis and shortness of breath. CV: Negative chest pain, difficulty breathing, palpitations. ABD: Negative pain, nausea, vomiting. : Negative increase frequency, dysuria, blood in urine or stool. MUSC: Negative for muscle aches, edema. SKIN: Negative rash, lesions/sores. NEURO: Negative headache, dizziness, weakness. Physical Exam Physical Exam: GENERAL APPEARANCE NAD, activity normal for age, well developed/ well nourished, no cyanosis, pallor, or diaphoresis. EYES lids/conjunctiva normal. EARS/NOSE/THROAT Mucous membranes moist, nares normal, lips/teeth normal uvula midline without oral pharyngeal erythema, exudate or swelling TMs normal bilaterally. No lymphangitis/lymphedema. HEAD/NECK normocephalic atraumatic, no facial trauma, neck is supple. RESPIRATORY respiratory effort normal, speaks in full sentences, no tripod position, no accessory muscle use. Lungs clear to auscultation without rhonchi, wheezes, rales CARDIAC Regular rate and rhythm, no edema. ABDOMINAL Soft, ND/NT. No evidence of fluid wave. No pulsatile masses on exam, rebound tenderness, Lau sign or pain over Mcburney's point. MUSCLES/EXTREMITIES No abnormal range of motion, no swelling. SKIN Warm, pink and dry. No rashes, dermatoses, petechiae or lesions. NEUROLOGICAL Speech is clear and appropriate. Normal level of consciousness. Gait and coordination are normal. 5/5 strength in all extremities. PSYCH Normal mood and affect. Judgement/competence is appropriate Results & Data Results & Data Vital Signs (Past 12 Hours) Vital Signs Temp Pulse Pulse Resp BP Pulse Ox O2 Del Method 01/25/25 09:50 Nasal Cannula 01/25/25 07:41 36.5 C 77 18 101/63 95 Nasal Cannula 01/25/25 05:51 79 01/25/25 03:37 36.5 C 74 16 95/56 L 94 Nasal Cannula 01/25/25 01:47 96 H 01/24/25 23:53 36.6 C 83 18 95/59 L 93 Nasal Cannula O2 Flow Rate 01/25/25 09:50 3 01/25/25 07:41 3 01/25/25 05:51 01/25/25 03:37 3 01/25/25 01:47 01/24/25 23:53 3 PG Care Time/CCT Total # of Minutes Spent Total Time Spent with Patient: Total time spent is greater than 50% in coordination of care (as documented) at patient's floor/unit and/or counseling patient: Coding Level of Care Code 96443 SUB INP/OBS CARE 235MIN Diagnoses Lung mass R91.8 Acute CVA (cerebrovascular accident) I63.9 Anemia D64.9 Anemia type: unspecified type Urothelial carcinoma of bladder C67.9 Cellulitis L03.90 Site of cellulitis: unspecified site (3) Anemia Anemia type: unspecified type Qualified Code(s): D64.9 - Anemia, unspecified (5) Cellulitis Site of cellulitis: unspecified site Qualified Code(s): L03.90 - Cellulitis, unspecified
[2025-01-25] MEDS: VANCOMYCIN LEVEL ONE (13:12)
--- NOTE | 2025-01-25 13:13 | Pharmacy Report ---
Pharmacy PK ABX Note - Date of Service January 25, 2025 - Assessment and Plan Assessment 01/25/25: * Plan is to complete 7 day antibiotic course (to complete this evening) 01/22: * Day #4 of Vancomycin and cefepime. No growth to date in any cultures. Renal fxn is stable. Still with significant leukocytosis, WBC 29.6k today. Remains afebrile. * Vanc trough today was therapeutic. No dose change needed. 01/21: * Day #3 of Vancomycin and Cefepime. No growth to date in any cultures. Renal f xn is stable. Leukocytosis worsening, WBC 35k today. Remains afebrile. * Vanc trough this morning was supratherapeutic with predicted AUC/DESTINEY > 600 mg/L.hr. Will decrease vancomycin dose today and delay administration until predicted level < 20 mcg/mL. 01/19: 74 year old F receiving vancomycin and cefepime for treatment of cellulitis vs. pulmonary infection. History of bladder cancer with mets, sacral ulcer s/p debridement 12/20. Blood cultures pending. Renal function stable. Day #1 of antimicrobial therapy. Plan Vancomycin * Current regimen: 750 mg IV every 12 hours * Random level obtained 01/25/25 resulted as 23.3 mcg/mL. This is predicted to achieve target AUC/DESTINEY of 400-600 mg/L.hr * Predicted AUC at steady state: ~600 mg/L.hr * Continue 750 mg IV every 12 hours x 1 more dose Zosyn * 4.5 g IV q8h through 01/25/25 Pharmacy will continue to follow and will adjust dose/frequency as necessary. Thank you. Pharmacy has transitioned to AUC monitoring for vancomycin. AUC/DESTINEY is the preferred PK/PD target and is associated with decreased risk of nephrotoxicity compared to traditional trough targets.
--- NOTE | 2025-01-25 14:18 | Pharmacy Report ---
- Date of Service January 25, 2025 - Pharmacy CVA/TIA Medication Review Medications to Prevent Stroke handout has been added to the patients discharge packet. Antiplatelet(s) * Aspirin 81 mg PO daily (currently on hold in anticipation for lung biopsy) Cholesterol * High intensity statin: atorvastatin 40 mg daily DVT Prophylaxis * Enoxaparin SQ Therapeutic Anticoagulation * No history of Afib/Aflutter noted Type 2 Diabetes * Patient does not have T2DM
[2025-01-26 06:31] LABS: Hematocrit (blood only) 27.3 % (37.0-47.0); Hemoglobin 8.4 g/dl (12.0-16.0); Mean Corpuscular Hemoglobin 25.9 pg (25.0-34.0); Mean Corpuscular Hgb Conc 30.8 g/dL (32.0-36.0); Mean Corpuscular Volume 84.3 fL (80.0-100.0); Mean Platelet Volume 10.8 fL (9.4-12.4); Nucleated RBC # (auto) 0.13 K/uL (0.00-0.12); Nucleated RBC % (auto) 0.4 %; Platelet Count 312 K/uL (130-400); RDW Coefficient of Variation 22.5 % (11.5-14.5); RDW Standard Deviation 63.2 fL (36.4-46.3); Red Blood Count 3.24 M/uL (4.20-5.40); White Blood Count 34.37 K/ul (4.8-10.8)
[2025-01-26 06:45] LABS: Anisocytosis Present; Basophils # (auto) 0.17 K/uL (0.00-0.20); Basophils % (auto) 0.5 %; Eosinophils # (auto) 6.64 K/uL (0.00-0.50); Eosinophils % (auto) 19.3 %; Immature Granulocytes # (auto) 1.57 K/uL (0.01-0.20); Immature Granulocytes % (auto) 4.6 %; Lymphocytes # (auto) 2.85 K/uL (1.20-3.40); Lymphocytes % (auto) 8.3 %; Monocytes # (auto) 1.28 K/uL (0.11-0.59); Monocytes % (auto) 3.7 %; Neutrophils # (auto) 21.86 K/uL (1.40-6.50); Neutrophils % (auto) 63.6 %; Poikilocytosis Present; Polychromasia 1+
[2025-01-26 06:49] LABS: BUN Creatinine Ratio 39.6 (10-20); Calcium 8.7 mg/dl (8.6-10.3); Creatinine Clr Calc Pharmacy 100.6 ml/min; Potassium 3.4 mmol/L (3.5-5.1)
[2025-01-26 08:33] LABS: Toxic Vacuolation 2+
--- NOTE | 2025-01-26 10:04 | Hospitalist Progress Note ---
Date of Service January 26, 2025 Assessment & Plan (1) Lung mass: Plan: Initially hypoxic and tachypneic-she remains on 2L NC continuously (uses 2.5L O2 hs at home). CTA ruled out pulmonary embolism but showed multiple pulmonary metastasis and concern for ?multifocal pneumonia. Biofire resp panel negative, Procal neg. PULM thinks highly likely these are pulm mets but could be septic emboli. Blood cxs remain no growth to date. PULM recommends CT guided lung bx by IR as high risk to undergo gen anesthesia for bronchoscopy/EBUS. Oncology consult appreciated-given history of previously untreated breast cancer only on anastrozole (never received mastectomy or chemotherapy or radiation) and with recent diagnosis of bladder cancer, need biopsy to see if urothelial vs breast CA -continue supplemental O2 and wean off as able -Continue Zosyn and Vanco empirically for PNA given history of MRSA -plan for CT guided biopsy once off ASA for 5 days-on 01/27-make n.p.o. at midnight on 01/26 and hold SQ Lovenox prior to biopsy (2) Acute CVA (cerebrovascular accident): Plan: as noted to be slow to respond/answer questions since admission. Was evident since before admission as per but not addressed until reported it worsening on 01/23. Initially thought to have encephalopathy from infection/anemia, etc. Typically can carry on conversation. Cefpeime was stopped and switched to Zosyn in case causing encephalopathy. Brain MRI evening of 01/23 did confirm multiple likely embolic ischemic CVAs, but no brain metastases. She does have a previous h/o CVA and also chronic hydrocephalus (had ventricular shunt externally as a child) -transfer to [facility] for arrhythmia monitoring-suspect occult Afib although had none on tele for first 3 days of hospitalization and none on previous 30 day event monitor in 2020 with last CVA (declined loop recorder at that time) -check CTA head/neck although normal in 12/2023 -checked ECHO with bubble for thrombus and PFO-negative except for some mild RV dilation and increased right-sided pressures -consult Neuro appreciated-I discussed with neuro-he does not think this is liability claims representative of embolic stroke, however I still think she should have 30-day event monitor after discharge to look for occult atrial fibrillation -I think it could be considered to treat with empiric Eliquis, HOWEVER, with ongoing anemia, hematuria from bladder CA, and need to be off blood thinners until after has lung and bone marrow biopsies on 01/27, HOLD off on anticoagulation at this time -continue statin, check lipid panel in the morning -Continue neurochecks, speech therapy consulted -Holding home aspirin for biopsy (3) Anemia: Plan: hgb down to 8.2 from 8.5 on admission-may be hemodilutional on top of anemia from recent hematuria with bladder CA. No GIB. Patient transfused 1 unit PRBCs 01/21. Patient's iron studies did not have significant low iron, unclear if bone marrow involvement with malignancies, patient's folate slightly low. Hgb now stable at 8.1-no bleeding from anywhere except previously in the urine. -Continue folate oral supplementation -Holding home aspirin -follow CBC -Monitor for recurrent hematuria -Plan for bone marrow biopsy on Tuesday (4) Urothelial carcinoma of bladder: Plan: Cystoscopy 12/20/2024 TURBT 12/20/24: Incomplete resection. Pathology showed poorly differentiated carcinoma. Was pending referral to tertiary care with cystectomy evaluation by urology.CTA/P 08/2024: Anterior bladder wall thickening Chest x-ray 01/19/2025 shows interval development of numerous rounded masslike opacities highly suggestive of metastatic disease. Small effusion with concern for pneumonia CTpelvis: Increase in size of peripherally enhancing masslike focus on anterior bladder 7.2 x 3.5 cm consistent with urothelial neoplasm. Diffusely thickened enhancing bladder wall and urothelial thickening of the left ureter infectious or neoplastic is within differential. Mild left hydro. Interval development of multiple enlarged pelvic lymph nodes. Sacral decubitus ulcer with skin thickening and subcutaneous induration favoring cellulitis without abscess. -f/u with Urology and Oncology after discharge -UA abnormal-but urine culture negative -await lung biopsy next week (5) Cellulitis: Plan: with persistent significant leukocytosis to 34K with eosinophilia and neutrophilia; with tachycardia, tachypnea, and hypotension on admission now resolved with volume resuscitation Concern for pneumonia versus chronic sacral decubitus ulcer associate with her spina bifida BioFire is negative. Nasal MRSA swab negative however history of both Pseudomonas and MRSA within the last year. With eosinophilia, peripheral smear cannot exclude myeloproliferative disease. Eosinophilia could be from allergic reaction although it has been present since October. Cellulitis is now resolved as per nursing on 01/23. -continue on vancomycin and Zosyn for pneumonia and cellulitis-finish 7-day course on evening of 01/25 -Discussed eosinophilia with hematology/oncology who is aware-I do not think she is at risk for parasitic infection and this has been ongoing since October so not likely an acute allergic reaction. -Hematology recommends bone marrow biopsy due to eosinophilia and leukocytosis as well as anemia and metastatic cancer-ordered for Tuesday along with CT-guided biopsy of the lung -follow CBC, BMP Plan This pt is a 74-year-old female with history of spina bifida, persistent chronic sacral wound, newly diagnosed bladder CA, GASTON, breast CA, lymphedema, HFpEF, DVT, CVA, HTN, hypothyroidism, depression, GERD, and anemia who presents with weakness and functional decline and SOB. Found to have acute respiratory failure with hypoxia and CTA CHest with multiple lung masses and nodules, small bilat pleural effusions. She was also thought to have a cellulitis surrounding her sacral decubitus ulcer and possible pneumonia. DVT proph-SQ Lovenox-will need to hold prior to lung bx on Tuesday Dispo-continued stay on medical/surgical unit, awaiting biopsy on Tuesday, then home from there,, appreciate Palliative consult for goals of care discussion Admission and Anticipated Discharge Date Admission Date: January 19, 2025 Subjective No events overnight. Pt resting in bed. Review of Systems Review of Systems: CONST: Negative for fever, body aches and chills. HENT: Negative for neck pain/stiffness, headache, congestion, sore throat, swelling. EYES: Negative for discharge/pain or vision changes. RESP: Negative for cough/hemoptysis and shortness of breath. CV: Negative chest pain, difficulty breathing, palpitations. ABD: Negative pain, nausea, vomiting. : Negative increase frequency, dysuria, blood in urine or stool. MUSC: Negative for muscle aches, edema. SKIN: Negative rash, lesions/sores. NEURO: Negative headache, dizziness, weakness. Physical Exam Physical Exam: GENERAL APPEARANCE NAD, activity normal for age, well developed/ well nourished, no cyanosis, pallor, or diaphoresis. EYES lids/conjunctiva normal. EARS/NOSE/THROAT Mucous membranes moist, nares normal, lips/teeth normal uvula midline without oral pharyngeal erythema, exudate or swelling TMs normal bilaterally. No lymphangitis/lymphedema. HEAD/NECK normocephalic atraumatic, no facial trauma, neck is supple. RESPIRATORY respiratory effort normal, speaks in full sentences, no tripod position, no accessory muscle use. Lungs clear to auscultation without rhonchi, wheezes, rales CARDIAC Regular rate and rhythm, no edema. ABDOMINAL Soft, ND/NT. No evidence of fluid wave. No pulsatile masses on exam, rebound tenderness, Lau sign or pain over Mcburney's point. MUSCLES/EXTREMITIES No abnormal range of motion, no swelling. SKIN Warm, pink and dry. No rashes, dermatoses, petechiae or lesions. NEUROLOGICAL Speech is clear and appropriate. Normal level of consciousness. Gait and coordination are normal. 5/5 strength in all extremities. PSYCH Normal mood and affect. Judgement/competence is appropriate Results & Data Results & Data Vital Signs (Past 12 Hours) Vital Signs Temp Pulse Pulse Resp BP Pulse Ox O2 Del Method 01/26/25 08:00 Nasal Cannula 01/26/25 08:00 36.5 C 78 18 101/60 97 Nasal Cannula 01/26/25 07:18 78 01/26/25 03:26 36.6 C 83 20 97/60 L 95 Nasal Cannula 01/26/25 00:12 36.7 C 103 H 20 105/67 91 Nasal Cannula O2 Flow Rate 01/26/25 08:00 3 01/26/25 08:00 3 01/26/25 07:18 01/26/25 03:26 3 01/26/25 00:12 3 PG Care Time/CCT Total # of Minutes Spent Total Time Spent with Patient: Total time spent is greater than 50% in coordination of care (as documented) at patient's floor/unit and/or counseling patient: Coding Level of Care Code 69968 SUB INP/OBS CARE 235MIN Diagnoses Lung mass R91.8 Acute CVA (cerebrovascular accident) I63.9 Anemia D64.9 Anemia type: unspecified type Urothelial carcinoma of bladder C67.9 Cellulitis L03.90 Site of cellulitis: unspecified site (3) Anemia Anemia type: unspecified type Qualified Code(s): D64.9 - Anemia, unspecified (5) Cellulitis Site of cellulitis: unspecified site Qualified Code(s): L03.90 - Cellulitis, unspecified
[2025-01-26] MEDS: ALBUTEROL HFA 8 GM INHALER INH PRN (15:57)
--- NOTE | 2025-01-26 16:09 | XRay Report ---
HISTORY: Shortness of breath. TECHNIQUE: Portable AP radiograph of the chest COMPARISON: Chest CT dated 01/19/2025 FINDINGS: Redemonstrated are innumerable bilateral pulmonary nodules and masses concerning for extensive pulmonary metastatic disease.No definite new focal consolidation. No effusion or pneumothorax. Normal heart size. Left-sided aortic arch. Midline trachea. Mildly elevated left hemidiaphragm. Degenerative changes of the shoulders and spine. IMPRESSION: 1. No acute findings. 2. Extensive pulmonary metastatic disease, which is similar in appearance to the chest CT on 01/19/2025. 3. Additional findings as above. Electronically signed by Ten Marshall 01-26-2025 4:09 PM
[2025-01-26] MEDS: FUROSEMIDE 40 MG/4 ML VIAL IV ONE (16:58)
[2025-01-26] MEDS: ALBUT/IPRATROP 3MG/0.5MG NEB 3 ML VIAL NEB SCH (20:28)
[2025-01-27 06:31] LABS: Hematocrit (blood only) 27.6 % (37.0-47.0); Hemoglobin 8.6 g/dl (12.0-16.0); Mean Corpuscular Hemoglobin 26.1 pg (25.0-34.0); Mean Corpuscular Hgb Conc 31.2 g/dL (32.0-36.0); Mean Corpuscular Volume 83.6 fL (80.0-100.0); Nucleated RBC # (auto) 0.15 K/uL (0.00-0.12); Nucleated RBC % (auto) 0.4 %; Platelet Count 319 K/uL (130-400); RDW Coefficient of Variation 22.7 % (11.5-14.5); RDW Standard Deviation 61.5 fL (36.4-46.3); White Blood Count 35.14 K/ul (4.8-10.8)
[2025-01-27 06:58] LABS: BUN Creatinine Ratio 43.8 (10-20); Calcium 9.1 mg/dl (8.6-10.3); Creatinine Clr Calc Pharmacy 100.6 ml/min; Potassium 3.2 mmol/L (3.5-5.1)
[2025-01-27 07:34] LABS: ALC (manual) 3.51 K/uL (1.2-3.4); Anisocytosis Present; Eosinophils # (manual) 6.68 K/uL (0-0.50); Eosinophils % (manual) 19 %; Lymphocytes # (manual) 3.51 K/uL (1.2-3.4); Lymphocytes % (manual) 10 %; Myelocytes # (manual) 0.35 K/uL (0-0); Myelocytes % (manual) 1 %; Neutrophils % (manual) 70 %; Ovalocytes 1+; Polychromasia 2+; Toxic Vacuolation 2+
[2025-01-27 08:04] VITALS: BP 127/68; TEMP 97.3
[2025-01-27] MEDS: POTASSIUM CHLORIDE / WTR 10 MEQ/100 ML PLCT IV SCH (08:12)
[2025-01-27] MEDS ORDERED: ONDANSETRON INJ 2 MG/ML 2 ML VIAL IV PRN (10:21)
--- NOTE | 2025-01-27 10:29 | Hospitalist Progress Note ---
Date of Service January 27, 2025 Assessment & Plan (1) Lung mass: Plan: Initially hypoxic and tachypneic-she remains on 2L NC continuously (uses 2.5L O2 hs at home). CTA ruled out pulmonary embolism but showed multiple pulmonary metastasis and concern for ?multifocal pneumonia. Biofire resp panel negative, Procal neg. PULM thinks highly likely these are pulm mets but could be septic emboli. Blood cxs remain no growth to date. PULM recommends CT guided lung bx by IR as high risk to undergo gen anesthesia for bronchoscopy/EBUS. Oncology consult appreciated-given history of previously untreated breast cancer only on anastrozole (never received mastectomy or chemotherapy or radiation) and with recent diagnosis of bladder cancer, need biopsy to see if urothelial vs breast CA -continue supplemental O2 and wean off as able -Continue Zosyn and Vanco empirically for PNA given history of MRSA -plan for CT guided biopsy once off ASA for 5 days-on 01/27-make n.p.o. at midnight on 01/26 and hold SQ Lovenox prior to biopsy -Pt's has elected to make her DNR/DNI and comfort care -comfort care measures initiated -palliative care to follow up (2) Acute CVA (cerebrovascular accident): Plan: as noted to be slow to respond/answer questions since admission. Was evident since before admission as per but not addressed until reported it worsening on 01/23. Initially thought to have encephalopathy from infection/anemia, etc. Typically can carry on conversation. Cefpeime was stopped and switched to Zosyn in case causing encephalopathy. Brain MRI evening of 01/23 did confirm multiple likely embolic ischemic CVAs, but no brain metastases. She does have a previous h/o CVA and also chronic hydrocephalus (had ventricular shunt externally as a child) -transfer to [facility] for arrhythmia monitoring-suspect occult Afib although had none on tele for first 3 days of hospitalization and none on previous 30 day event monitor in 2020 with last CVA (declined loop recorder at that time) -check CTA head/neck although normal in 12/2023 -checked ECHO with bubble for thrombus and PFO-negative except for some mild RV dilation and increased right-sided pressures -consult Neuro appreciated-I discussed with neuro-he does not think this is 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 of embolic stroke, however I still think she should have 30-day event monitor after discharge to look for occult atrial fibrillation -I think it could be considered to treat with empiric Eliquis, HOWEVER, with ongoing anemia, hematuria from bladder CA, and need to be off blood thinners until after has lung and bone marrow biopsies on 01/27, HOLD off on anticoagulation at this time -continue statin, check lipid panel in the morning -Continue neurochecks, speech therapy consulted -Holding home aspirin for biopsy (3) Anemia: Plan: hgb down to 8.2 from 8.5 on admission-may be hemodilutional on top of anemia from recent hematuria with bladder CA. No GIB. Patient transfused 1 unit PRBCs 01/21. Patient's iron studies did not have significant low iron, unclear if bone marrow involvement with malignancies, patient's folate slightly low. Hgb now stable at 8.1-no bleeding from anywhere except previously in the urine. -Continue folate oral supplementation -Holding home aspirin -follow CBC -Monitor for recurrent hematuria -Plan for bone marrow biopsy on Tuesday (4) Urothelial carcinoma of bladder: Plan: Cystoscopy 12/20/2024 TURBT 12/20/24: Incomplete resection. Pathology showed poorly differentiated carcinoma. Was pending referral to tertiary care with cystectomy evaluation by urology.CTA/P 08/2024: Anterior bladder wall thickening Chest x-ray 01/19/2025 shows interval development of numerous rounded masslike opacities highly suggestive of metastatic disease. Small effusion with concern for pneumonia CTpelvis: Increase in size of peripherally enhancing masslike focus on anterior bladder 7.2 x 3.5 cm consistent with urothelial neoplasm. Diffusely thickened enhancing bladder wall and urothelial thickening of the left ureter infectious or neoplastic is within differential. Mild left hydro. Interval development of multiple enlarged pelvic lymph nodes. Sacral decubitus ulcer with skin thickening and subcutaneous induration favoring cellulitis without abscess. -f/u with Urology and Oncology after discharge -UA abnormal-but urine culture negative -await lung biopsy next week (5) Cellulitis: Plan: with persistent significant leukocytosis to 34K with eosinophilia and neutrophilia; with tachycardia, tachypnea, and hypotension on admission now resolved with volume resuscitation Concern for pneumonia versus chronic sacral decubitus ulcer associate with her spina bifida BioFire is negative. Nasal MRSA swab negative however history of both Pseudomonas and MRSA within the last year. With eosinophilia, peripheral smear cannot exclude myeloproliferative disease. Eosinophilia could be from allergic reaction although it has been present since October. Cellulitis is now resolved as per nursing on 01/23. -continue on vancomycin and Zosyn for pneumonia and cellulitis-finish 7-day course on evening of 01/25 -Discussed eosinophilia with hematology/oncology who is aware-I do not think she is at risk for parasitic infection and this has been ongoing since October so not likely an acute allergic reaction. -Hematology recommends bone marrow biopsy due to eosinophilia and leukocytosis as well as anemia and metastatic cancer-ordered for Tuesday along with CT-guided biopsy of the lung -follow CBC, BMP Plan This pt is a 74-year-old female with history of spina bifida, persistent chronic sacral wound, newly diagnosed bladder CA, GASTON, breast CA, lymphedema, HFpEF, DVT, CVA, HTN, hypothyroidism, depression, GERD, and anemia who presents with weakness and functional decline and SOB. Found to have acute respiratory failure with hypoxia and CTA CHest with multiple lung masses and nodules, small bilat pleural effusions. She was also thought to have a cellulitis surrounding her sacral decubitus ulcer and possible pneumonia. Pt now DNR/DNI Family agreeing with comfort care Admission and Anticipated Discharge Date Admission Date: January 19, 2025 Subjective Pt with worsened breathing overnight. Spoke with and daughter at bedside, agreeing to DNR/DNI and comfortcare. Review of Systems Review of Systems: CONST: Negative for fever, body aches and chills. HENT: Negative for neck pain/stiffness, headache, congestion, sore throat, swelling. EYES: Negative for discharge/pain or vision changes. RESP: Negative for cough/hemoptysis and shortness of breath. CV: Negative chest pain, difficulty breathing, palpitations. ABD: Negative pain, nausea, vomiting. : Negative increase frequency, dysuria, blood in urine or stool. MUSC: Negative for muscle aches, edema. SKIN: Negative rash, lesions/sores. NEURO: Negative headache, dizziness, weakness. Physical Exam Physical Exam: GENERAL APPEARANCE NAD, activity normal for age, well developed/ well nourished, no cyanosis, pallor, or diaphoresis. EYES lids/conjunctiva normal. EARS/NOSE/THROAT Mucous membranes moist, nares normal, lips/teeth normal uvula midline without oral pharyngeal erythema, exudate or swelling TMs normal bilaterally. No lymphangitis/lymphedema. HEAD/NECK normocephalic atraumatic, no facial trauma, neck is supple. RESPIRATORY respiratory effort normal, speaks in full sentences, no tripod position, no accessory muscle use. Lungs clear to auscultation without rhonchi, wheezes, rales CARDIAC Regular rate and rhythm, no edema. ABDOMINAL Soft, ND/NT. No evidence of fluid wave. No pulsatile masses on exam, rebound tenderness, Lau sign or pain over Mcburney's point. MUSCLES/EXTREMITIES No abnormal range of motion, no swelling. SKIN Warm, pink and dry. No rashes, dermatoses, petechiae or lesions. NEUROLOGICAL Speech is clear and appropriate. Normal level of consciousness. Gait and coordination are normal. 5/5 strength in all extremities. PSYCH Normal mood and affect. Judgement/competence is appropriate Results & Data Results & Data Vital Signs (Past 12 Hours) Vital Signs Temp Pulse Pulse Resp BP Pulse Ox O2 Del Method 01/27/25 08:04 36.3 C L 97 H 16 127/68 91 Nasal Cannula 01/27/25 08:00 Nasal Cannula 01/27/25 07:18 105 H 18 85 L Nasal Cannula 01/27/25 07:14 97 H 01/27/25 05:23 36.4 C L 104 H 20 107/60 91 Nasal Cannula 01/27/25 01:15 90 18 93 Nasal Cannula 01/26/25 23:47 36.9 C 113 H 24 135/74 92 Nasal Cannula 01/26/25 21:53 119 H O2 Flow Rate 01/27/25 08:04 5 01/27/25 08:00 3 01/27/25 07:18 4 01/27/25 07:14 01/27/25 05:23 5 01/27/25 01:15 5 01/26/25 23:47 5 01/26/25 21:53 PG Care Time/CCT Total # of Minutes Spent Total Time Spent with Patient: Total time spent is greater than 50% in coordination of care (as documented) at patient's floor/unit and/or counseling patient: Coding Level of Care Code 25977 SUB INP/OBS CARE 2/35MIN Diagnoses Lung mass R91.8 Acute CVA (cerebrovascular accident) I63.9 Anemia D64.9 Anemia type: unspecified type Urothelial carcinoma of bladder C67.9 Cellulitis L03.90 Site of cellulitis: unspecified site (3) Anemia Anemia type: unspecified type Qualified Code(s): D64.9 - Anemia, unspecified (5) Cellulitis Site of cellulitis: unspecified site Qualified Code(s): L03.90 - Cellulitis, unspecified
[2025-01-27] MEDS: MoRPHine SULFATE 2 MG/ML CARP IV PRN (12:09)
[2025-01-27] MEDS: LORazepam 2 MG/1 ML VIAL IV PRN (13:43)
[2025-01-27 20:14] VITALS: RESP 18
[2025-01-27] MEDS: GLYCOPYRROLATE 0.2 MG/ML VIAL IV PRN (23:11)
[2025-01-28] MEDS: MoRPHine SULFATE 10 MG/0.5 ML UDP PO PRN (09:29)
--- NOTE | 2025-01-28 09:35 | Hospitalist Progress Note ---
Date of Service January 28, 2025 Assessment & Plan (1) Lung mass: Plan: Initially hypoxic and tachypneic-she remains on 2L NC continuously (uses 2.5L O2 hs at home). CTA ruled out pulmonary embolism but showed multiple pulmonary metastasis and concern for ?multifocal pneumonia. Biofire resp panel negative, Procal neg. PULM thinks highly likely these are pulm mets but could be septic emboli. Blood cxs remain no growth to date. PULM recommends CT guided lung bx by IR as high risk to undergo gen anesthesia for bronchoscopy/EBUS. Oncology consult appreciated-given history of previously untreated breast cancer only on anastrozole (never received mastectomy or chemotherapy or radiation) and with recent diagnosis of bladder cancer, need biopsy to see if urothelial vs breast CA -continue supplemental O2 and wean off as able -Continue Zosyn and Vanco empirically for PNA given history of MRSA -Pt's has elected to make her DNR/DNI and comfort care -comfort care measures initiated -palliative care to follow up -biopsies canceled -oral meds d/c'd (2) Acute CVA (cerebrovascular accident): Plan: as noted to be slow to respond/answer questions since admission. Was evident since before admission as per but not addressed until reported it worsening on 01/23. Initially thought to have encephalopathy from infection/anemia, etc. Typically can carry on conversation. Cefpeime was stopped and switched to Zosyn in case causing encephalopathy. Brain MRI evening of 01/23 did confirm multiple likely embolic ischemic CVAs, but no brain metastases. She does have a previous h/o CVA and also chronic hydrocephalus (had ventricular shunt externally as a child) -transfer to [facility] for arrhythmia monitoring-suspect occult Afib although had none on tele for first 3 days of hospitalization and none on previous 30 day event monitor in 2020 with last CVA (declined loop recorder at that time) -check CTA head/neck although normal in 12/2023 -checked ECHO with bubble for thrombus and PFO-negative except for some mild RV dilation and increased right-sided pressures -consult Neuro appreciated-I discussed with neuro-he does not think this is service support representative of embolic stroke, however I still think she should have 30-day event monitor after discharge to look for occult atrial fibrillation -I think it could be considered to treat with empiric Eliquis, HOWEVER, with ongoing anemia, hematuria from bladder CA, and need to be off blood thinners until after has lung and bone marrow biopsies on 01/27, HOLD off on anticoagulation at this time -continue statin, check lipid panel in the morning -Continue neurochecks, speech therapy consulted -Holding home aspirin for biopsy (3) Anemia: Plan: hgb down to 8.2 from 8.5 on admission-may be hemodilutional on top of anemia from recent hematuria with bladder CA. No GIB. Patient transfused 1 unit PRBCs 01/21. Patient's iron studies did not have significant low iron, unclear if bone marrow involvement with malignancies, patient's folate slightly low. Hgb now stable at 8.1-no bleeding from anywhere except previously in the urine. -Continue folate oral supplementation -Holding home aspirin -follow CBC -Monitor for recurrent hematuria -Plan for bone marrow biopsy on Tuesday (4) Urothelial carcinoma of bladder: Plan: Cystoscopy 12/20/2024 TURBT 12/20/24: Incomplete resection. Pathology showed poorly differentiated carcinoma. Was pending referral to tertiary care with cystectomy evaluation by urology.CTA/P 08/2024: Anterior bladder wall thickening Chest x-ray 01/19/2025 shows interval development of numerous rounded masslike opacities highly suggestive of metastatic disease. Small effusion with concern for pneumonia CTpelvis: Increase in size of peripherally enhancing masslike focus on anterior bladder 7.2 x 3.5 cm consistent with urothelial neoplasm. Diffusely thickened enhancing bladder wall and urothelial thickening of the left ureter infectious or neoplastic is within differential. Mild left hydro. Interval development of multiple enlarged pelvic lymph nodes. Sacral decubitus ulcer with skin thickening and subcutaneous induration favoring cellulitis without abscess. -f/u with Urology [facility] Oncology after discharge -UA abnormal-but urine culture negative -await lung biopsy next week (5) Cellulitis: Plan: with persistent significant leukocytosis to 34K with eosinophilia and neutrophilia; with tachycardia, tachypnea, and hypotension on admission now resolved with volume resuscitation Concern for pneumonia versus chronic sacral decubitus ulcer associate with her spina bifida BioFire is negative. Nasal MRSA swab negative however history of both Pseudomonas and MRSA within the last year. With eosinophilia, peripheral smear cannot exclude myeloproliferative disease. Eosinophilia could be from allergic reaction although it has been present since October. Cellulitis is now resolved as per nursing on 01/23. -continue on vancomycin and Zosyn for pneumonia and cellulitis-finish 7-day cou rse on evening of 01/25 -Discussed eosinophilia with hematology/oncology who is aware-I do not think she is at risk for parasitic infection and this has been ongoing since October so not likely an acute allergic reaction. -Hematology recommends bone marrow biopsy due to eosinophilia and leukocytosis as well as anemia and metastatic cancer-ordered for Tuesday along with CT-guided biopsy of the lung -follow CBC, BMP Plan This pt is a 74-year-old female with history of spina bifida, persistent chronic sacral wound, newly diagnosed bladder CA, GASTON, breast CA, lymphedema, HFpEF, DVT, CVA, HTN, hypothyroidism, depression, GERD, and anemia who presents with weakness and functional decline and SOB. Found to have acute respiratory failure with hypoxia and CTA CHest with multiple lung masses and nodules, small bilat pleural effusions. She was also thought to have a cellulitis surrounding her sacral decubitus ulcer and possible pneumonia. Pt now DNR/DNI Family agreeing with comfort care Admission and Anticipated Discharge Date Admission Date: January 19, 2025 Subjective Pt resting in bed, appears comfortable. Sister is at bedside. Review of Systems Review of Systems: CONST: Negative for fever, body aches and chills. HENT: Negative for neck pain/stiffness, headache, congestion, sore throat, swelling. EYES: Negative for discharge/pain or vision changes. RESP: Negative for cough/hemoptysis and shortness of breath. CV: Negative chest pain, difficulty breathing, palpitations. ABD: Negative pain, nausea, vomiting. : Negative increase frequency, dysuria, blood in urine or stool. MUSC: Negative for muscle aches, edema. SKIN: Negative rash, lesions/sores. NEURO: Negative headache, dizziness, weakness. Physical Exam Physical Exam: GENERAL APPEARANCE NAD, activity normal for age, well developed/ well nourished, no cyanosis, pallor, or diaphoresis. EYES lids/conjunctiva normal. EARS/NOSE/THROAT Mucous membranes moist, nares normal, lips/teeth normal uvula midline without oral pharyngeal erythema, exudate or swelling TMs normal bilaterally. No lymphangitis/lymphedema. HEAD/NECK normocephalic atraumatic, no facial trauma, neck is supple. RESPIRATORY respiratory effort normal, speaks in full sentences, no tripod position, no accessory muscle use. Lungs clear to auscultation without rhonchi, wheezes, rales CARDIAC Regular rate and rhythm, no edema. ABDOMINAL Soft, ND/NT. No evidence of fluid wave. No pulsatile masses on exam, rebound tenderness, Lau sign or pain over Mcburney's point. MUSCLES/EXTREMITIES No abnormal range of motion, no swelling. SKIN Warm, pink and dry. No rashes, dermatoses, petechiae or lesions. NEUROLOGICAL Speech is clear and appropriate. Normal level of consciousness. Gait and coordination are normal. 5/5 strength in all extremities. PSYCH Normal mood and affect. Judgement/competence is appropriate PG Care Time/CCT Total # of Minutes Spent Total Time Spent with Patient: Total time spent is greater than 50% in coordination of care (as documented) at patient's floor/unit and/or counseling patient: Coding Level of Care Code 36958 SUB INP/OBS CARE 2/35MIN Diagnoses Lung mass R91.8 Acute CVA (cerebrovascular accident) I63.9 Anemia D64.9 Anemia type: unspecified type Urothelial carcinoma of bladder C67.9 Cellulitis L03.90 Site of cellulitis: unspecified site (3) Anemia Anemia type: unspecified type Qualified Code(s): D64.9 - Anemia, unspecified (5) Cellulitis Site of cellulitis: unspecified site Qualified Code(s): L03.90 - Cellulitis, unspecified
[2025-01-28] MEDS ORDERED: ONDANSETRON INJ 2 MG/ML 2 ML VIAL IV PRN (11:20)
[2025-01-28] MEDS: MoRPHine SULFATE 2 MG/ML CARP IV PRN (14:39)
--- NOTE | 2025-01-28 14:57 | Palliative Care Progress Note ---
Date of Service January 28, 2025 Assessment & Plan (1) Palliative care by specialist: Plan: Palliative care will continue to follow for ongoing EOL pt care and family support. (2) Comfort measures only status: Plan: Pt transitioned to comfort directed care on 01/27/25, spouse and son at bedside. [facility] hospice evaluating pt for GIP. Anticipatory guidance offered. Discussed changes pt may move through in the dying process including but not limited to sleeping more, disorientation when awake, restlessness, diminished senses/inability to respond to stimulus although ability to be aware of them remains intact longer, and changes in body temperatures, skin changes/mottling/cyanosis, respiratory pattern changes, and oral secretions. Family verbalized understanding. The goal is to assure a pea ceful . (3) Need for comfort care: Plan: EOL Symptom manamgement: Pain/dyspnea/tachypnea morphine 2mg IVP PRN [id number] Consider titratable morphine drip if pt requires >3 PRN doses in under two consecutive hours. Nausea/vomitting zofran 4mg IVP q4h PRN Agitation ativan 0.5mg IVP q4h PRN Hyperactive delirium haldol 5mg IVP q6h PRN Secretions - if repositioning not effective robinul 0.4mg IV q4h PRN atropine SL 3 drops Q1h PRN Nursing care: Discontinue all medications not directed towards comfort. Detether pt from IV tubing, monitor cables, and check vitals once per shift. Please continue HFNC and titrate down as able for patient comfort. Use medications above PRN for dyspnea/tachypnea and do not increase oxygen once titrated down. Assess q1h for pain/dyspnea and treat accordingly. Plan as above Admission and Anticipated Discharge Date Admission Date: January 19, 2025 Subjective Met with pt and her spouse Thom at bedside. Pt transitioned to [facility] over weekend and Palliative care reengaged for symptom management. Pt denies any pain, c/o feeling "a little" SOB, but visibly distressed. Pt tachypneic, with moderate accessory muscle use, audible wheezes, circumoral cyanosis and actively suppressing cough. Encouraged pt to cough freely and requested BSRN to medicate for dyspnea. Review of Systems Review of Systems: All systems reviewed & are unremarkable except as noted in Subjective Physical Exam Constitutional: + ill appearing, cooperative and + in di stress Eyes: PERRL, conjunctivae normal, anicteric sclerae ENMT: external ear and nose normal, oropharynx normal Neck: trachea midline, no thyromegaly Respiratory: + respiratory distress, + uses accessory muscles, + cough, + tachypneic, + prolonged expiratory phase and + audible wheezes Cardiovascular: Rate/Rhythm: regular rate and regular rhythm Gastrointestinal (Abdomen): normal bowel sounds, soft, nontender, no hepatosplenomegaly Neurologic: PERRL, EOMI, accommodation nl, no face palsy, no dysarthria Results & Data Vital Signs (Past 12 Hours) Vital Signs O2 Del Method O2 Flow Rate 01/28/25 07:29 Nasal Cannula 3 Laboratory Results No further labs or diagnostics in concert with comfort directed care. Diagnostic Findings No further labs or diagnostics in concert with comfort directed care. Medications Administered Current Inpatient Medications Albuterol (Albuterol Hfa 8 Gm Inhaler) 1 puffs INH QIDR PRN PRN Reason: Shortness Of Breath Stop: 02/20/25 09:21 Last Admin: 01/26/25 15:57 Dose: 1 puffs Albuterol (Albut/Ipratrop 3mg/0.5mg Neb 3 Ml Vial) 3 ml NEB Q6R PRN; Protocol PRN Reason: Shortness Of Breath Or Wheezing Stop: 02/25/25 18:59 Anastrozole (Anastrozole 1 Mg Tab) 1 mg PO QAM POLLY Stop: 02/21/25 08:59 Last Admin: 01/28/25 09:18 Dose: Not Given Glycopyrrolate (Glycopyrrolate 0.2 Mg/Ml Vial) 0.4 mg IV Q4H PRN PRN Reason: Rattling Secretions or Pulm Congestion Stop: 02/26/25 10:20 Last Admin: 01/28/25 09:17 Dose: 0.4 mg Lorazepam (Lorazepam 2 Mg/1 Ml Vial) 0.5 mg IV Q4H PRN PRN Reason: Anxiety/Agitation Stop: 02/26/25 10:20 Last Admin: 01/27/25 13:43 Dose: 0.5 mg Morphine Sulfate (Morphine Sulfate 10 Mg/0.5 Ml Udp) 5 mg PO Q3H PRN PRN Reason: Pain or Respiratory Distress Stop: 02/10/25 10:20 Last Admin: 01/28/25 12:14 Dose: 5 mg Morphine Sulfate (Morphine Sulfate 2 Mg/Ml Carp) 2 mg IV Q30M PRN PRN Reason: Pain or Respiratory Distress Stop: 02/10/25 10:20 Last Admin: 01/28/25 14:39 Dose: 2 mg Ondansetron HCl (Ondansetron Inj 2 Mg/Ml 2 Ml Vial) 4 mg IV Q4H PRN PRN Reason: Nausea And Vomiting Stop: 02/19/25 21:08 Sertraline HCl (Sertraline Hcl 50 Mg Tablet) 50 mg PO QAM POLLY Stop: 02/19/25 08:59 Last Admin: 01/28/25 09:20 Dose: Not Given PG Care Time/CCT Total # of Minutes Spent Total Time Spent with Patient: Total time spent is greater than 50% in coordination of care (as documented) at patient's floor/unit and/or counseling patient: Coding [place] [address] SUB INP/OBS CARE 12/15MIN Patient Type Established History Problem Focused Exam Problem Focused Medical Decision Making Low Complexity Diagnoses Palliative care by specialist Z51.5 Comfort measures only status Z51.5 Need for comfort care
[2025-01-28] MEDS: ALBUT/IPRATROP 3MG/0.5MG NEB 3 ML VIAL NEB PRN (21:01)
[2025-01-28 21:03] VITALS: PULSE 99; O2SAT 90
--- NOTE | 2025-01-29 09:10 | Hospitalist Progress Note ---
Date of Service January 29, 2025 Assessment & Plan (1) Lung mass: Plan: Initially hypoxic and tachypneic-she remains on 2L NC continuously (uses 2.5L O2 hs at home). CTA ruled out pulmonary embolism but showed multiple pulmonary metastasis and concern for ?multifocal pneumonia. Biofire resp panel negative, Procal neg. PULM thinks highly likely these are pulm mets but could be septic emboli. Blood cxs remain no growth to date. PULM recommends CT guided lung bx by IR as high risk to undergo gen anesthesia for bronchoscopy/EBUS. Oncology consult appreciated-given history of previously untreated breast cancer only on anastrozole (never received mastectomy or chemotherapy or radiation) and with recent diagnosis of bladder cancer, need biopsy to see if urothelial vs breast CA -continue supplemental O2 and wean off as able -Continue Zosyn and Vanco empirically for PNA given history of MRSA -Pt's has elected to make her DNR/DNI and comfort care -comfort care measures initiated -palliative care to follow up appreciated -biopsies canceled -oral meds d/c'd (2) Acute CVA (cerebrovascular accident): Plan: as noted to be slow to respond/answer questions since admission. Was evident since before admission as per but not addressed until reported it worsening on 01/23. Initially thought to have encephalopathy from infection/anemia, etc. Typically can carry on conversation. Cefpeime was stopped and switched to Zosyn in case causing encephalopathy. Brain MRI evening of 01/23 did confirm multiple likely embolic ischemic CVAs, but no brain metastases. She does have a previous h/o CVA and also chronic hydrocephalus (had ventricular shunt externally as a child) -transfer to [facility] for arrhythmia monitoring-suspect occult Afib although had none on tele for first 3 days of hospitalization and none on previous 30 day event monitor in 2020 with last CVA (declined loop recorder at that time) -check CTA head/neck although normal in 12/2023 -checked ECHO with bubble for thrombus and PFO-negative except for some mild RV dilation and increased right-sided pressures -consult Neuro appreciated-I discussed with neuro-he does not think this is fulfillment representative of embolic stroke, however I still think she should have 30-day event monitor after discharge to look for occult atrial fibrillation -I think it could be considered to treat with empiric Eliquis, HOWEVER, with ongoing anemia, hematuria from bladder CA, and need to be off blood thinners until after has lung and bone marrow biopsies on 01/27, HOLD off on anticoagulation at this time -continue statin, check lipid panel in the morning -Continue neurochecks, speech therapy consulted --all meds d/c'd comfort care (3) Anemia: Plan: hgb down to 8.2 from 8.5 on admission-may be hemodilutional on top of anemia from recent hematuria with bladder CA. No GIB. Patient transfused 1 unit PRBCs 01/21. Patient's iron studies did not have significant low iron, unclear if bone marrow involvement with malignancies, patient's folate slightly low. Hgb now stable at 8.1-no bleeding from anywhere except previously in the urine. -Continue folate oral supplementation -Holding home aspirin -follow CBC -Monitor for recurrent hematuria --all meds d/c'd comfort care (4) Urothelial carcinoma of bladder: Plan: Cystoscopy 12/20/2024 TURBT 12/20/24: Incomplete resection. Pathology showed poorly differentiated carcinoma. Was pending referral to tertiary care with cystectomy evaluation by urology.CTA/P 08/2024: Anterior bladder wall thickening Chest x-ray 01/19/2025 shows interval development of numerous rounded masslike opacities highly suggestive of metastatic disease. Small effusion with concern for pneumonia CTpelvis: Increase in size of peripherally enhancing masslike focus on anterior bladder 7.2 x 3.5 cm consistent with urothelial neoplasm. Diffusely thickened enhancing bladder wall and urothelial thickening of the left ureter infectious or neoplastic is within differential. Mild left hydro. Interval development of multiple enlarged pelvic lymph nodes. Sacral decubitus ulcer with skin thickening and subcutaneous induration favoring cellulitis without abscess. -f/u with Urology and Oncology after discharge -UA abnormal-but urine culture negative --all meds d/c'd comfort care (5) Cellulitis: Plan: with persistent significant leukocytosis to 34K with eosinophilia and neutrophilia; with tachycardia, tachypnea, and hypotension on admission now resolved with volume resuscitation Concern for pneumonia versus chronic sacral decubitus ulcer associate with her spina bifida BioFire is negative. Nasal MRSA swab negative however history of both Pseudomonas and MRSA within the last year. With eosinophilia, peripheral smear cannot exclude myeloproliferative disease. Eosinophilia could be from allergic reaction although it has been present since October. Cellulitis is now resolved as per nursing on 01/23. -continue on vancomycin and Zosyn for pneumonia and cellulitis-finish 7-day course on evening of 01/25 -Discussed eosinophilia with hematology/oncology who is aware-I do not think she is at risk for parasitic infection and this has been ongoing since October so not likely an acute allergic reaction. -Hematology recommends bone marrow biopsy due to eosinophilia and leukocytosis as well as anemia and metastatic cancer-ordered for Tuesday along with CT-guided biopsy of the lung -follow CBC, BMP -all meds d/c'd comfort care Plan This pt is a 74-year-old female with history of spina bifida, persistent chronic sacral wound, newly diagnosed bladder CA, GASTON, breast CA, lymphedema, HFpEF, DVT, CVA, HTN, hypothyroidism, depression, GERD, and anemia who presents with weakness and functional decline and SOB. Found to have acute respiratory failure with hypoxia and CTA CHest with multiple lung masses and nodules, small bilat pleural effusions. She was also thought to have a cellulitis surrounding her sacral decubitus ulcer and possible pneumonia. Pt now DNR/DNI Family agreeing with comfort care Admission and Anticipated Discharge Date Admission Date: January 19, 2025 Subjective Pt appears comfortable, resting in bed with sister at bedside. Review of Systems Review of Systems: CONST: Negative for fever, body aches and chills. HENT: Negative for neck pain/stiffness, headache, congestion, sore throat, swelling. EYES: Negative for discharge/pain or vision changes. RESP: Negative for cough/hemoptysis and shortness of breath. CV: Negative chest pain, difficulty breathing, palpitations. ABD: Negative pain, nausea, vomiting. : Negative increase frequency, dysuria, blood in urine or stool. MUSC: Negative for muscle aches, edema. SKIN: Negative rash, lesions/sores. NEURO: Negative headache, dizziness, weakness. Physical Exam Physical Exam: GENERAL APPEARANCE NAD, activity normal for age, well developed/ well nourished, no cyanosis, pallor, or diaphoresis. EYES lids/conjunctiva normal. EARS/NOSE/THROAT Mucous membranes moist, nares normal, lips/teeth normal uvula midline without oral pharyngeal erythema, exudate or swelling TMs normal bilaterally. No lymphangitis/lymphedema. HEAD/NECK normocephalic atraumatic, no facial trauma, neck is supple. RESPIRATORY respiratory effort normal, speaks in full sentences, no tripod position, no accessory muscle use. Lungs clear to auscultation without rhonchi, wheezes, rales CARDIAC Regular rate and rhythm, no edema. ABDOMINAL Soft, ND/NT. No evidence of fluid wave. No pulsatile masses on exam, rebound tenderness, Lau sign or pain over Mcburney's point. MUSCLES/EXTREMITIES No abnormal range of motion, no swelling. SKIN Warm, pink and dry. No rashes, dermatoses, petechiae or lesions. NEUROLOGICAL Speech is clear and appropriate. Normal level of consciousness. Gait and coordination are normal. 5/5 strength in all extremities. PSYCH Normal mood and affect. Judgement/competence is appropriate PG Care Time/CCT Total # of Minutes Spent Total Time Spent with Patient: Total time spent is greater than 50% in coordination of care (as documented) at patient's floor/unit and/or counseling patient: Coding Level of Care Code 87850 SUB INP/OBS CARE 2/35MIN Diagnoses Lung mass R91.8 Acute CVA (cerebrovascular accident) I63.9 Anemia D64.9 Anemia type: unspecified type Urothelial carcinoma of bladder C67.9 Cellulitis L03.90 Site of cellulitis: unspecified site (3) Anemia Anemia type: unspecified type Qualified Code(s): D64.9 - Anemia, unspecified (5) Cellulitis Site of cellulitis: unspecified site Qualified Code(s): L03.90 - Cellulitis, unspecified
[2025-01-29] MEDS ORDERED: STROKE PATIENT DISCHARGE STA (09:31)
--- NOTE | 2025-01-29 09:31 | Discharge Summary ---
Discharge Summary Date of Service January 29, 2025 Principal Dx & Hospital Course #1 = Principal Diagnosis (1) Lung mass: Initially hypoxic and tachypneic-she remains on 2L NC continuously (uses 2.5L O2 hs at home). CTA ruled out pulmonary embolism but showed multiple pulmonary metastasis and concern for ?multifocal pneumonia. Biofire resp panel negative, Procal neg. PULM thinks highly likely these are pulm mets but could be septic emboli. Blood cxs remain no growth to date. PULM recommends CT guided lung bx by IR as high risk to undergo gen anesthesia for bronchoscopy/EBUS. Oncology consult appreciated-given history of previously untreated breast cancer only on anastrozole (never received mastectomy or chemotherapy or radiation) and with recent diagnosis of bladder cancer, need biopsy to see if urothelial vs breast CA -continue supplemental O2 and wean off as able -Continue Zosyn and Vanco empirically for PNA given history of MRSA -Pt's has elected to make her DNR/DNI and comfort care -comfort care measures initiated -palliative care to follow up appreciated -biopsies canceled -oral meds d/c'd (2) Acute CVA (cerebrovascular accident): as noted to be slow to respond/answer questions since admission. Was evident since before admission as per but not addressed until reported it worsening on 01/23. Initially thought to have encephalopathy from infection/anemia, etc. Typically can carry on conversation. Cefpeime was stopped and switched to Zosyn in case causing encephalopathy. Brain MRI evening of 01/23 did confirm multiple likely embolic ischemic CVAs, but no brain metastases. She does have a previous h/o CVA and also chronic hydrocephalus (had ventricular shunt externally as a child) -transfer to [facility] for arrhythmia monitoring-suspect occult Afib although had none on tele for first 3 days of hospitalization and none on previous 30 day event monitor in 2020 with last CVA (declined loop recorder at that time) -check CTA head/neck although normal in 12/2023 -checked ECHO with bubble for thrombus and PFO-negative except for some mild RV dilation and increased right-sided pressures -consult Neuro appreciated-I discussed with neuro-he does not think this is vaccine customer representative of embolic stroke, however I still think she should have 30-day event monitor after discharge to look for occult atrial fibrillation -I think it could be considered to treat with empiric Eliquis, HOWEVER, with ongoing anemia, hematuria from bladder CA, and need to be off blood thinners until after has lung and bone marrow biopsies on 01/27, HOLD off on anticoagulation at this time -continue statin, check lipid panel in the morning -Continue neurochecks, speech therapy consulted --all meds d/c'd comfort care (3) Anemia: hgb down to 8.2 from 8.5 on admission-may be hemodilutional on top of anemia from recent hematuria with bladder CA. No GIB. Patient transfused 1 unit PRBCs 01/21. Patient's iron studies did not have significant low iron, unclear if bone marrow involvement with malignancies, patient's folate slightly low. Hgb now stable at 8.1-no bleeding from anywhere except previously in the urine. -Continue folate oral supplementation -Holding home aspirin -follow CBC -Monitor for recurrent hematuria --all meds d/c'd comfort care (4) Urothelial carcinoma of bladder: Cystoscopy 12/20/2024 TURBT 12/20/24: Incomplete resection. Pathology showed poorly differentiated carcinoma. Was pending referral to tertiary care with cystectomy evaluation by urology.CTA/P 08/2024: Anterior bladder wall thickening Chest x-ray 01/19/2025 shows interval development of numerous rounded masslike opacities highly suggestive of metastatic disease. Small effusion with concern for pneumonia CTpelvis: Increase in size of peripherally enhancing masslike focus on anterior bladder 7.2 x 3.5 cm consistent with urothelial neoplasm. Diffusely thickened enhancing bladder wall and urothelial thickening of the left ureter infectious or neoplastic is within differential. Mild left hydro. Interval development of multiple enlarged pelvic lymph nodes. Sacral decubitus ulcer with skin thickening and subcutaneous induration favoring cellulitis without abscess. -f/u with Urology and Oncology after discharge -UA abnormal-but urine culture negative --all meds d/c'd comfort care (5) Cellulitis: with persistent significant leukocytosis to 34K with eosinophilia and neutrophilia; with tachycardia, tachypnea, and hypotension on admission now resolved with volume resuscitation Concern for pneumonia versus chronic sacral decubitus ulcer associate with her spina bifida BioFire is negative. Nasal MRSA swab negative however history of both Pseudomonas and MRSA within the last year. With eosinophilia, peripheral smear cannot exclude myeloproliferative disease. Eosinophilia could be from allergic reaction although it has been present since October. Cellulitis is now resolved as per nursing on 01/23. -continue on vancomycin and Zosyn for pneumonia and cellulitis-finish 7-day course on evening of 01/25 -Discussed eosinophilia with hematology/oncology who is aware-I do not think she is at risk for parasitic infection and this has been ongoing since October so not likely an acute allergic reaction. -Hematology recommends bone marrow biopsy due to eosinophilia and leukocytosis as well as anemia and metastatic cancer-ordered for Tuesday along with CT-guided biopsy of the lung -follow CBC, BMP -all meds d/c'd comfort care Plan This pt is a 74-year-old female with history of spina bifida, persistent chronic sacral wound, newly diagnosed bladder CA, GASTON, breast CA, lymphedema, HFpEF, DVT, CVA, HTN, hypothyroidism, depression, GERD, and anemia who presents with weakness and functional decline and SOB. Found to have acute respiratory failure with hypoxia and CTA CHest with multiple lung masses and nodules, small bilat pleural effusions. She was also thought to have a cellulitis surrounding her sacral decubitus ulcer and possible pneumonia. Pt now DNR/DNI Family agreeing with comfort care Admission HPI Per Admitting Provider Minerva is a 74-year-old female with a past medical history of bilateral lower extremity venous stasis with ulcers, spina bifida with no sensation below the navel and wheelchair-bound at baseline, pressure ulcer unstageable of the sacrum present on admission, stress cardiomyopathy with normalized EF and without known ischemic coronary disease, recently diagnosed bladder cancer who presents to the ER with progressive cough over 2 weeks additional fatigue. Patient endorses that she has had a poor appetite, increased cough over the last 2 weeks, and some shortness of breath especially with exertion. She has a chronic sacral ulcer which was recently debrided. Wound VAC had been discussed with her however due to her mobility deficits and limited assistance at home and incontinence at baseline was not able to accommodate this. She does not have any feeling from the waist down so does not get sacroiliac pain. She has missed several wound care visits recently. She denies fever chills or sweats but feels weak. At the bedside did have a discussed the new findings on her chest x-ray and that these are new compared to her last CTchest. Did discuss goals of care her understanding of the illness, and which she would like to do moving forward with the new information. Patient somewhat stunned and reports she has to take some time to think this with her . She reports that she would like to try to treat and survive her cancer, and recognizes that if the lesions are metastatic in her lung that it is likely a fairly aggressive malignancy given the changes in her lymph nodes on last CT and some development of multiple lesions. She is aware that differential is most likely from her bladder although could include recurrent breast given her past history. She would like to have further workup with imaging to better characterize the findings, and discussed with both hematology oncology and palliative care before making any decisions moving forward. Discussed CODE STATUS. Discussed the nature and picture of CPR and resuscitation. She would like to think about this and discuss this further when her who is on his way here, but for now would like resuscitation in any event/cast or if he and confirms a full code Medical History: Reviewed Medications: Reviewed Surgical History: Reviewed Family history: Reviewed Allergies: Reviewed Social History: Denies tobacco/alcohol use Code Status: Full code Discharge Exam GENERAL APPEARANCE NAD, activity normal for age, well developed/ well nourished, no cyanosis, pallor, or diaphoresis. EYES lids/conjunctiva normal. EARS/NOSE/THROAT Mucous membranes moist, nares normal, lips/teeth normal uvula midline without oral pharyngeal erythema, exudate or swelling TMs normal bilaterally. No lymphangitis/lymphedema. HEAD/NECK normocephalic atraumatic, no facial trauma, neck is supple. RESPIRATORY respiratory effort normal, speaks in full sentences, no tripod position, no accessory muscle use. Lungs clear to auscultation without rhonchi, wheezes, rales CARDIAC Regular rate and rhythm, no edema. ABDOMINAL Soft, ND/NT. No evidence of fluid wave. No pulsatile masses on exam, rebound tenderness, Lau sign or pain over Mcburney's point. MUSCLES/EXTREMITIES No abnormal range of motion, no swelling. SKIN Warm, pink and dry. No rashes, dermatoses, petechiae or lesions. NEUROLOGICAL Speech is clear and appropriate. Normal level of consciousness. Gait and coordination are normal. 5/5 strength in all extremities. PSYCH Normal mood and affect. Judgement/competence is appropriate Discharge Plan Discharge Items Patient Disposition: Hospice - Medical Facility Reason For Visit: CELLULITIS, ?PNA, METS BLADDER CA Discharge Diagnosis: Metasatic ca Activity: Resume your previous activity Non-emergency contact: Primary Care Provider Call non-emergency contact if: you have any medication questions Follow-up/Referrals: Fartun Frank PA-C [Primary Care Provider] - Diet: Regular Addtl Attending Provider Instructions: Follow up with hospice Pending Studies at Discharge: No Stand-Alone Forms: My ProtoShare, Medications to Prevent Stroke Skilled Items Patient informed of condition?: Yes DNR: Yes Discharge Level of Care: Other Communicable Disease: No Discharge Prognosis: Stable Lines: None Urinary Catheter: No Medications and DC Order Prescriptions: Continued Santyl 250 unit/gram ointment 1 applic topical DAILY Qty: 30 1RF (DME) Oxygen Home Liters Per Minute See Rx Instructions .ROUTE .MEDSUPPLY Qty: 1 0RF Rx Instructions: As directed - 2 L NC O2 at bedtime & with naps ammonium lactate 12 % cream 1 applic topical DAILY Rx Instructions: Apply to lower legs and feet daily. Discontinued pantoprazole 40 mg tablet,delayed release (DR/EC) 40 mg PO DAILY Patient Comments: "I am unsure if I am taking that one right now" anastrozole [Arimidex] 1 mg tablet 1 mg PO QAM levothyroxine 50 mcg tablet 50 mcg PO UD Rx Instructions: 50 mcg po qam. per pt she's not sure if her dose has changed, most recent fill is for 75mcg (2/5 30 day supply) furosemide [Lasix] 40 mg tablet 40 mg PO UD Rx Instructions: 40 mg po q other day. Per pt she's not sure on the medication. Last dose filled was 20 mg for 5 day supply sertraline [Zoloft] 50 mg tablet 50 mg PO QAM PRN (Reason: Other) atorvastatin 40 mg tablet 40 mg PO QAM aspirin 81 mg Tablet,Delayed Release (Dr/Ec) 81 mg PO QAM Qty: 0 0RF amlodipine [Norvasc] 5 mg Tablet 2.5 mg PO QAM Qty: 30 2RF albuterol 90 mcg/actuation Aerosol 90 mcg INHALATION DAILY PRN (Reason: Shortness Of Breath) potassium chloride 10 mEq tablet extended release 10 meq PO QAM Discharge Orders: Discharge Order (Routine); Ordered 01/29/25 Ordered By: Richard Prasad Admission Data Admit Date/Time: 01/19/25 13:27 Attending Provider: Richard Prasad Admit Provider: Gary Olmos Primary Care Provider: Fartun Frank Other Providers: [facility]; [facility]; Gary Olmos; Jony Fernandez; Sarah Mojica; Ten Abdullahi; Keren Biswas; Franci Moulton Hospital Stay Data Consultations 01/19/25 12:24 ED Decision to Admit Stat 01/19/25 16:47 Consult Pulmonology Routine 01/19/25 17:23 Consult Oncology Routine Consult Palliative Care Routine 01/24/25 10:01 Consult Neurology Routine 01/27/25 10:21 Consult Palliative Care Routine Diagnostic Imagining Performed 01/19/25 13:07 CT Abd and Pelvis [CT abd pelvis IV con only] Stat CT angio chest PE protocol Stat 01/23/25 17:02 MR brain wo/w con Routine 01/24/25 10:57 CTA head w con [CT angio head w con] Urgent CTA neck with con [CT angio neck with con] Urgent Pending Results Patient Have Any Pending Studies at Discharge: No Discharge Instructions Given to Patient (Per Discharging Provider) Follow up with hospice Total Time Total Time Spent Total Time Spent (In Minutes): 50 Coding Level of Care Code 26669 INP/OBS DISCH >30 MIN Diagnoses Lung mass R91.8 Acute CVA (cerebrovascular accident) I63.9 Anemia D64.9 Anemia type: unspecified type Urothelial carcinoma of bladder C67.9 Cellulitis L03.90 Site of cellulitis: unspecified site
[2025-01-29] MEDS ORDERED: PROMETHAZINE HCL 25 MG TAB PO PRN (09:32)
[2025-01-29] MEDS ORDERED: LORazepam 2 MG/1 ML VIAL IV PRN (09:32)
[2025-01-29] MEDS ORDERED: MoRPHine SULFATE 2 MG/ML CARP IV PRN (09:32)
[2025-01-29] MEDS ORDERED: GLYCOPYRROLATE 0.2 MG/ML VIAL IV PRN (09:32)
[2025-01-29] MEDS ORDERED: ACETAMINOPHEN 650 MG SUPP PR PRN (09:32)
[2025-01-29] MEDS ORDERED: ACETAMINOPHEN 325 MG TAB PO PRN (09:32)
[2025-01-29] MEDS ORDERED: MoRPHine SULFATE 10 MG/0.5 ML UDP PO PRN (09:32)
[2025-01-29] MEDS ORDERED: ONDANSETRON INJ 2 MG/ML 2 ML VIAL IV PRN (09:32)
--- NOTE | 2025-01-29 09:35 | History & Physical Report ---
Date of Service January 29, 2025 Assessment & Plan (1) Lung mass: Plan: Initially hypoxic and tachypneic-she remains on 2L NC continuously (uses 2.5L O2 hs at home). CTA ruled out pulmonary embolism but showed multiple pulmonary metastasis and concern for ?multifocal pneumonia. Biofire resp panel negative, Procal neg. PULM thinks highly likely these are pulm mets but could be septic emboli. Blood cxs remain no growth to date. PULM recommends CT guided lung bx by IR as high risk to undergo gen anesthesia for bronchoscopy/EBUS. Oncology consult appreciated-given history of previously untreated breast cancer only on anastrozole (never received mastectomy or chemotherapy or radiation) and with recent diagnosis of bladder cancer, need biopsy to see if urothelial vs breast CA -continue supplemental O2 and wean off as able -Continue Zosyn and Vanco empirically for PNA given history of MRSA -Pt's has elected to make her DNR/DNI and comfort care -comfort care measures initiated -palliative care to follow up appreciated -biopsies canceled -oral meds d/c'd (2) Acute CVA (cerebrovascular accident): Plan: as noted to be slow to respond/answer questions since admission. Was evident since before admission as per but not addressed until reported it worsening on 01/23. Initially thought to have encephalopathy from infection/anemia, etc. Typically can carry on conversation. Cefpeime was stopped and switched to Zosyn in case causing encephalopathy. Brain MRI evening of 01/23 did confirm multiple likely embolic ischemic CVAs, but no brain metastases. 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 of embolic stroke, however I still think she should have 30-day event monitor after discharge to look for occult atrial fibrillation -I think it could be considered to treat with empiric Eliquis, HOWEVER, with ongoing anemia, hematuria from bladder CA, and need to be off blood thinners until after has lung and bone marrow biopsies on 01/27, HOLD off on anticoagulation at this time -continue statin, check lipid panel in the morning -Continue neurochecks, speech therapy consulted --all meds d/c'd comfort care (3) Anemia: Plan: hgb down to 8.2 from 8.5 on admission-may be hemodilutional on top of anemia from recent hematuria with bladder CA. No GIB. Patient transfused 1 unit PRBCs 01/21. Patient's iron studies did not have significant low iron, unclear if bone marrow involvement with malignancies, patient's folate slightly low. Hgb now stable at 8.1-no bleeding from anywhere except previously in the urine. -Continue folate oral supplementation -Holding home aspirin -follow CBC -Monitor for recurrent hematuria --all meds d/c'd comfort care (4) Urothelial carcinoma of bladder: Plan: Cystoscopy 12/20/2024 TURBT 12/20/24: Incomplete resection. Pathology showed poorly differentiated carcinoma. Was pending referral to tertiary care with cystectomy evaluation by urology.CTA/P 08/2024: Anterior bladder wall thickening Chest x-ray 01/19/2025 shows interval development of numerous rounded masslike opacities highly suggestive of metastatic disease. Small effusion with concern for pneumonia CTpelvis: Increase in size of peripherally enhancing masslike focus on anterior bladder 7.2 x 3.5 cm consistent with urothelial neoplasm. Diffusely thickened enhancing bladder wall and urothelial thickening of the left ureter infectious or neoplastic is within differential. Mild left hydro. Interval development of multiple enlarged pelvic lymph nodes. Sacral decubitus ulcer with skin thickening and subcutaneous induration favoring cellulitis without abscess. -f/u with Urology and Oncology after discharge -UA abnormal-but urine culture negative --all meds d/c'd comfort care (5) Cellulitis: Plan: with persistent significant leukocytosis to 34K with eosinophilia and neutrophilia; with tachycardia, tachypnea, and hypotension on admission now resolved with volume resuscitation Concern for pneumonia versus chronic sacral decubitus ulcer associate with her spina bifida BioFire is negative. Nasal MRSA swab negative however history of both Pseudomonas and MRSA within the last year. With eosinophilia, peripheral smear cannot exclude myeloproliferative disease. Eosinophilia could be from allergic reaction although it has been present since October. Cellulitis is now resolved as per nursing on 01/23. -continue on vancomycin and Zosyn for pneumonia and cellulitis-finish 7-day course on evening of 01/25 -Discussed eosinophilia with hematology/oncology who is aware-I do not think she is at risk for parasitic infection and this has been ongoing since October so not likely an acute allergic reaction. -Hematology recommends bone marrow biopsy due to eosinophilia and leukocytosis as well as anemia and metastatic cancer-ordered for Tuesday along with CT-guided biopsy of the lung -follow CBC, BMP -all meds d/c'd comfort care Plan This pt is a 74-year-old female with history of spina bifida, persistent chronic sacral wound, newly diagnosed bladder CA, GASTON, breast CA, lymphedema, HFpEF, DVT, CVA, HTN, hypothyroidism, depression, GERD, and anemia who presents with weakness and functional decline and SOB. Found to have acute respiratory failure with hypoxia and CTA CHest with multiple lung masses and nodules, small bilat pleural effusions. She was also thought to have a cellulitis surrounding her sacral decubitus ulcer and possible pneumonia. Pt now DNR/DNI Family agreeing with comfort care Admission and Anticipated Discharge Date Admission Date: January 19, 2025 History of Present Illness Primary Care Provider: Fartun Frank PA-C Minerva is a 74-year-old female with a past medical history of bilateral lower extremity venous stasis with ulcers, spina bifida with no sensation below the navel and wheelchair-bound at baseline, pressure ulcer unstageable of the sacrum present on admission, stress cardiomyopathy with normalized EF and without known ischemic coronary disease, recently diagnosed bladder cancer who presents to the ER with progressive cough over 2 weeks additional fatigue. Patient endorses that she has had a poor appetite, increased cough over the last 2 weeks, and some shortness of breath especially with exertion. She has a chronic sacral ulcer which was recently debrided. Wound VAC had been discussed with her however due to her mobility deficits and limited assistance at home and incontinence at baseline was not able to accommodate this. She does not have any feeling from the waist down so does not get sacroiliac pain. She has missed several wound care visits recently. She denies fever chills or sweats but feels weak. At the bedside did have a discussed the new findings on her chest x-ray and that these are new compared to her last CTchest. Did discuss goals of care her understanding of the illness, and which she would like to do moving forward with the new information. Patient somewhat stunned and reports she has to take some time to think this with her . She reports that she would like to try to treat and survive her cancer, and recognizes that if the lesions are metastatic in her lung that it is likely a fairly aggressive malignancy given the changes in her lymph nodes on last CT and some development of multiple lesions. She is aware that differential is most likely from her bladder although could include recurrent breast given her past history. She would like to have further workup with imaging to better characterize the findings, and discussed with both hematology oncology and palliative care before making any decisions moving forward. Discussed CODE STATUS. Discussed the nature and picture of CPR and resuscitation. She would like to think about this and discuss this further when her who is on his way here, but for now would like resuscitation in any event/cast or if he and confirms a full code Medical History: Reviewed Medications: Reviewed Surgical History: Reviewed Family history: Reviewed Allergies: Reviewed Social History: Denies tobacco/alcohol use Code Status: Full code Allergies Allergy/AdvReac Type Severity Reaction Status Date / Time nalidixic acid Allergy Intermediate Rash Verified 01/03/25 13:03 Home Medications Medication Instructions Recorded Confirmed Type Oxygen Home #1 ea 05/21/21 01/03/25 Rx ammonium lactate 12 % topical cream 1 applic topical DAILY Skin 12/06/24 01/19/25 History Removal collagenase clostridium histo. 250 1 applic topical DAILY #30 grams 01/03/25 01/19/25 Rx unit/gram topical ointment (Santyl) Past Med/Surg History Problem List Comfort measures only status Need for comfort care Acute CVA (cerebrovascular accident) Counseling regarding goals of care Quality of life palliative care encounter Counseling regarding advanced directives and goals of care Palliative care by specialist Lung mass GASTON (obstructive sleep apnea) Abnormal chest x-ray History of spina bifida (Acute) Acute dyspnea (Acute) Cough (Acute) Cancer, metastatic to lung (Acute) Acute hypoxemic respiratory failure (Acute) Urothelial carcinoma of bladder (Acute) Bladder mass Venous stasis ulcers of both lower extremities (Acute) Hx of aspiration pneumonitis (Acute) Anemia (Acute) Metabolic encephalopathy Allergy to fluoroquinolone Breast cancer Weakness (Acute) Hypotension Heart failure Chronic acquired lymphedema (Chronic) Subclinical hypothyroidism Hydronephrosis Nocturnal hypoxemia DVT (deep venous thrombosis) Hiatal hernia H/O section Hx of cholecystectomy Medical History Renal artery stenosis Mild/bilateral per cardio Unstageable pressure ulcer to the sacrum/lower back region - reason for upcoming debridement Multiple wounds Currently following [facility] - BLE Venous stasis ulcers to bilateral LEs- Poor historian Hypothermia 12/2023 - 01/2024 [facility] "Sometimes I get cold and get brought to the ER for a warming blanket to get me warmed up" as per patient Hiatal hernia Hx of deep venous thrombosis Pt unsure - EMR 09/2018 Hx of Clostridium difficile infection Pt unsure - EMR 09/2018 - pt denies any issues at this time Hx of breast cancer "Its been a couple years" no chemo/xrt/surgery - CCP Bladder mass Reason for procedure Hx of respiratory failure 12/2023 - [facility] IP History of non-ST elevation myocardial infarction (NSTEMI) pt denies - EMR 2015 - Dr Stover CHF (congestive heart failure) Pt Denies - Dr Stover EF 65-70% on 12/2023 ECHO Per cardio records - hx of Takotsubo CM- moderate to severe LV dysfunction 07/2016 that resolved in four days Anemia Hypothyroidism Cellulitis hx - Currently following [facility] for multiple wounds Osteomyelitis no osteomyelitis per 11/08/[address] Constipation Intermittent CAD (coronary artery disease) No Stents - Dr Stover No evidence of epicardial CAD per cardio records History of CVA (cerebrovascular accident) - 04/2021; Residual - Right Arm - No Neurologist Severe obstructive sleep apnea CPAP Chronic cough Intermittent- no current issues Meningitis spinal 1986 Lymphedema of both lower extremities Hypertension Spina bifida (06/21/13) Motorized Wheelchair/Get Lift Paraplegia Motorized Wheelchair/Get Lift Neurogenic bladder (06/21/13) Surgical History S/P debridement (12/20/24) Excisional Debridement Sacral Decubitus Ulcer [id number] down to subcutaneous tissue (Not Applicable) - Bhar[facility] Moon, Hx of colonoscopy Hx laparoscopic cholecystectomy Hx of esophagogastroduodenoscopy Hx of section x1 H/O bone graft Left Knee, Right Ankle, Right Upper Thigh - [place] Family History Father Hypertension Myocardial infarction Herniated disc Mother Myocardial infarction Colorectal cancer Uterine cancer Other Family history non-contributory Social History Smoking Status: Never smoker Second Hand Exposure: No; Do You Dip or Chew Tobacco: No; Hx Alcohol Use: No Hx Substance Use: No Preferred Language: Tuvaluan Communication Ability: Effective Visual Impairment: Limited Hearing Ability: Normal Shape Hand Required: No Beliefs That Will Affect Care: Lutheran Lutheran Beliefs: [employer] [place] marital status: Current Living Situation: Spouse current occupational status: retired How many Children do You have: 2 Feels Safe at Home: Yes Diet: regular caffeine: Yes (tea) during the past year weight has: increased > 10 lbs Physical Activity Frequency: Does not Exercise Do you think of yourself as: straight/heterosexual Gender Identity: Female Assistive Devices: Mechanical Lift, Oxygen - at Night and Wheelchair Review of Systems Review of Systems: CONST: Negative for fever, body aches and chills. HENT: Negative for neck pain/stiffness, headache, congestion, sore throat, swe lling. EYES: Negative for discharge/pain or vision changes. RESP: Negative for cough/hemoptysis and shortness of breath. CV: Negative chest pain, difficulty breathing, palpitations. ABD: Negative pain, nausea, vomiting. : Negative increase frequency, dysuria, blood in urine or stool. MUSC: Negative for muscle aches, edema. SKIN: Negative rash, lesions/sores. NEURO: Negative headache, dizziness, weakness. Physical Exam Physical Exam: GENERAL APPEARANCE NAD, activity normal for age, well developed/ well nourished, no cyanosis, pallor, or diaphoresis. EYES lids/conjunctiva normal. EARS/NOSE/THROAT Mucous membranes moist, nares normal, lips/teeth normal uvula midline without oral pharyngeal erythema, exudate or swelling TMs normal bilaterally. No lymphangitis/lymphedema. HEAD/NECK normocephalic atraumatic, no facial trauma, neck is supple. RESPIRATORY respiratory effort normal, speaks in full sentences, no tripod position, no accessory muscle use. Lungs clear to auscultation without rhonchi, wheezes, rales CARDIAC Regular rate and rhythm, no edema. ABDOMINAL Soft, ND/NT. No evidence of fluid wave. No pulsatile masses on exam, rebound tenderness, Lau sign or pain over Mcburney's point. MUSCLES/EXTREMITIES No abnormal range of motion, no swelling. SKIN Warm, pink and dry. No rashes, dermatoses, petechiae or lesions. NEUROLOGICAL Speech is clear and appropriate. Normal level of consciousness. Gait and coordination are normal. 5/5 strength in all extremities. PSYCH Normal mood and affect. Judgement/competence is appropriate Code Status & VTE Plan VTE Prophylaxis Plan VTE Prophylaxis will be ordered: Yes PG Care Time/CCT Total # of Minutes Spent Total Time Spent with Patient: Total time spent is greater than 50% in coordination of care (as documented) at patient's floor/unit and/or counseling patient: Coding Level of Care Code 22345 INT INP/OBS CARE 2/55MIN Diagnoses Lung mass R91.8 Acute CVA (cerebrovascular accident) I63.9 Anemia D64.9 Anemia type: unspecified type Urothelial carcinoma of bladder C67.9 Cellulitis L03.90 Site of cellulitis: unspecified site (3) Anemia Anemia type: unspecified type Qualified Code(s): D64.9 - Anemia, unspecified (5) Cellulitis Site of cellulitis: unspecified site Qualified Code(s): L03.90 - Cellulitis, unspecified
--- NOTE | 2025-01-31 09:03 | Coding Query ---
To promote full compliance with coding requirements relating to patient care, provider participation is requested in all cases of field auditor uncertainty. Please assist us with the question(s) below: Coding Question(s): The diagnosis(es) below was documented in the ( H&P, progress notes, etc.) then subsequently fell off all further documentation. Please indicate if it is still a possible diagnosis or ruled out. Physician's Response(s): SEPSIS ( x) Diagnosed and POA ( ) Diagnosed and not POA ( ) Ruled out ( ) Other (please specify) MTDD
== END 2025-01-29 09:59 | disposition hospice, inpatient (51) | DRG 871 ==
LOC: ED 09:54 → SUATTDRO 13:27 → 4W 13:27 → 3E 01-22 22:00 → 2W 01-24 13:38 → 3E 01-27 22:05

== ENCOUNTER 2025-01-29 09:59 | Inpatient (IN) ==
[2025-01-29] MEDS ORDERED: ACETAMINOPHEN 325 MG TAB PO PRN (11:01)
[2025-01-29] MEDS ORDERED: ONDANSETRON 4 MG OD TAB SL PRN (11:01)
[2025-01-29] MEDS ORDERED: ONDANSETRON INJ 2 MG/ML 2 ML VIAL IV PRN (11:01)
[2025-01-29] MEDS ORDERED: ACETAMINOPHEN 650 MG SUPP PR PRN (11:01)
[2025-01-29] MEDS: MoRPHine SULFATE 2 MG/ML CARP IV PRN (13:48)
[2025-01-29] MEDS: MoRPHine SULFATE 10 MG/0.5 ML UDP PO PRN (14:19)
[2025-01-29] MEDS: GLYCOPYRROLATE 0.2 MG/ML VIAL IV PRN (20:18)
[2025-01-30] MEDS: MoRPHine SULFATE 2 MG/ML CARP IV PRN (01:18)
[2025-01-30] MEDS: LORazepam 2 MG/1 ML VIAL IV PRN (05:59)
[2025-01-30] MEDS ORDERED: STAT IV Infusion **Titration per Protocol STA (10:05)
--- NOTE | 2025-01-30 10:09 | Hospitalist Progress Note ---
Date of Service January 30, 2025 Assessment & Plan (1) Metastatic cancer: Plan: -Pt on comfort care -morphine drip started today -scopolamine patch ordered -con't comfort measures Admission and Anticipated Discharge Date Admission Date: January 29, 2025 Subjective Pt resting in bed, appears comfortably. Sister at bedside. Review of Systems Review of Systems: Unresponsive. Physical Exam Physical Exam: GENERAL APPEARANCE NAD, activity normal for age, well developed/ well nourished, no cyanosis, pallor, or diaphoresis. EYES lids/conjunctiva normal. EARS/NOSE/THROAT Mucous membranes moist, nares normal, lips/teeth normal uvula midline without oral pharyngeal erythema, exudate or swelling TMs normal bilaterally. No lymphangitis/lymphedema. HEAD/NECK normocephalic atraumatic, no facial trauma, neck is supple. RESPIRATORY respiratory effort normal, speaks in full sentences, no tripod position, no accessory muscle use. Lungs clear to auscultation without rhonchi, wheezes, rales CARDIAC Regular rate and rhythm, no edema. ABDOMINAL Soft, ND/NT. No evidence of fluid wave. No pulsatile masses on exam, rebound tenderness, Lau sign or pain over Mcburney's point. MUSCLES/EXTREMITIES No abnormal range of motion, no swelling. SKIN Warm, pink and dry. No rashes, dermatoses, petechiae or lesions. NEUROLOGICAL Speech is clear and appropriate. Normal level of consciousness. Gait and coordination are normal. 5/5 strength in all extremities. PSYCH Normal mood and affect. Judgement/competence is appropriate PG Care Time/CCT Total # of Minutes Spent Total Time Spent with Patient: Total time spent is greater than 50% in coordination of care (as documented) at patient's floor/unit and/or counseling patient: Coding Level of Care Code 45652 SUB INP/OBS CARE 2/35MIN Diagnoses Metastatic cancer C79.9
[2025-01-30] MEDS: SCOPOLAMINE 1 MG/72 HR TDSY PATCH TD SCH (10:41)
[2025-01-30] MEDS: MoRPHine SULF 100 MG/100 ML BAG IV SCH (10:42)
[2025-01-30] MEDS: ATROPINE SULFATE 1% OP SOLN 5 ML BTL PO SCH (14:57)
[2025-01-30] MEDS: CHECK SCOPOLAMINE PATCH PLACEMENT SCH (15:53)
[2025-01-30] MEDS: MoRPHine BOLUS from BAG IV PRN (15:53)
[2025-01-30] MEDS ORDERED: ATROPINE SULFATE 1% OP SOLN 5 ML BTL OP SCH (16:00)
--- NOTE | 2025-01-31 08:47 | Death Pronouncement Note ---
Date of Service January 31, 2025 Pronouncement Note Admission Date Admission Date: January 29, 2025 Date and Time of Date of : 01/30/25 Time of : 22:15 PCOD Preliminary cause of : Respiratory arrest Contributing Factors (1) Metastatic cancer: Hospital Course Hospital Course: Patient is a 74-year-old female with history of spina bifida, persistent chronic sacral wound, newly diagnosed bladder CA, GASTON, breast CA, lymphedema, HFpEF, DVT, CVA, HTN, hypothyroidism, depression, GERD, and anemia who presented with weakness and functional decline and SOB. Found to have acute respiratory failure with hypoxia and CTA Chest with multiple lung masses and nodules, small bilat pleural effusions. Patient also with recent documented history of transitional cell carcinoma, past history of breast cancer (treated solely with anastrazole), and MRI evidence of multiple recent embolic strokes. Patient was placed on comfort care immediately after her most recent admission on 01/29/25. Upon entering the room it was confirmed that the patient no longer had a carotid or radial pulse bilaterally, was without a heartbeat, no evidence of respiration, and pupils that were fixed and dilated. Patient peacefully with family at her side, including her , son, and daughter. Additional Data Confirmation of : no pulse, no respirations, no heart sounds and pupils fixed and dilated Family: at bedside Attending/PCP notified?: Yes Attending physician: Richard Prasad MD Autopsy requested?: No
--- NOTE | 2025-01-31 09:19 | Discharge Summary ---
Discharge Summary Date of Service January 31, 2025 Principal Dx & Hospital Course #1 = Principal Diagnosis (1) Metastatic cancer: -Pt on comfort care -morphine drip started today -scopolamine patch ordered -con't comfort measures -pt 01/30/25 at 2300. Discharge Exam GENERAL APPEARANCE NAD, activity normal for age, well developed/ well nourished, no cyanosis, pallor, or diaphoresis. EYES lids/conjunctiva normal. EARS/NOSE/THROAT Mucous membranes moist, nares normal, lips/teeth normal uvula midline without oral pharyngeal erythema, exudate or swelling TMs normal bilaterally. No lymphangitis/lymphedema. HEAD/NECK normocephalic atraumatic, no facial trauma, neck is supple. RESPIRATORY respiratory effort normal, speaks in full sentences, no tripod position, no accessory muscle use. Lungs clear to auscultation without rhonchi, wheezes, rales CARDIAC Regular rate and rhythm, no edema. ABDOMINAL Soft, ND/NT. No evidence of fluid wave. No pulsatile masses on exam, rebound tenderness, Lau sign or pain over Mcburney's point. MUSCLES/EXTREMITIES No abnormal range of motion, no swelling. SKIN Warm, pink and dry. No rashes, dermatoses, petechiae or lesions. NEUROLOGICAL Speech is clear and appropriate. Normal level of consciousness. Gait and coordination are normal. 5/5 strength in all extremities. PSYCH Normal mood and affect. Judgement/competence is appropriate Discharge Plan Discharge Items Patient Disposition: Discharge Diagnosis: Metastatic bladder CA Other Date/Time: 01/30/25 22:15 Total Time Total Time Spent Total Time Spent (In Minutes): 50 Coding Level of Care Code 27817 INP/OBS DISCH >30 MIN Diagnoses Metastatic cancer C79.9
--- NOTE | 2025-02-03 10:35 | Hospitalist Progress Note ---
Date of Service January 30, 2025 Assessment & Plan (1) Metastatic cancer: Plan: -Pt on comfort care -morphine drip started today -scopolamine patch ordered -con't comfort measures -pt 01/30/25 at 2300. Admission and Anticipated Discharge Date Admission Date: January 29, 2025 Subjective Pt resting in bed, appears comfortably. Sister at bedside. Review of Systems Review of Systems: Unresponsive. Physical Exam Physical Exam: GENERAL APPEARANCE NAD, activity normal for age, well developed/ well nourished, no cyanosis, pallor, or diaphoresis. EYES lids/conjunctiva normal. EARS/NOSE/THROAT Mucous membranes moist, nares normal, lips/teeth normal uvula midline without oral pharyngeal erythema, exudate or swelling TMs normal bilaterally. No lymphangitis/lymphedema. HEAD/NECK normocephalic atraumatic, no facial trauma, neck is supple. RESPIRATORY respiratory effort normal, speaks in full sentences, no tripod position, no accessory muscle use. Lungs clear to auscultation without rhonchi, wheezes, rales CARDIAC Regular rate and rhythm, no edema. ABDOMINAL Soft, ND/NT. No evidence of fluid wave. No pulsatile masses on exam, rebound tenderness, Lau sign or pain over Mcburney's point. MUSCLES/EXTREMITIES No abnormal range of motion, no swelling. SKIN Warm, pink and dry. No rashes, dermatoses, petechiae or lesions. NEUROLOGICAL Speech is clear and appropriate. Normal level of consciousness. Gait and coordination are normal. 5/5 strength in all extremities. PSYCH Normal mood and affect. Judgement/competence is appropriate PG Care Time/CCT Total # of Minutes Spent Total Time Spent with Patient: Total time spent is greater than 50% in coordination of care (as documented) at patient's floor/unit and/or counseling patient: Coding Level of Care Code 96869 SUB INP/OBS CARE 2/35MIN Diagnoses Metastatic cancer C79.9
== END 2025-01-30 23:59 | disposition expired | DRG 951 ==
LOC: 3E 09:59